=== PATIENT | female | born 1955 | race Caucasian/White ===

== ENCOUNTER 2016-09-10 16:17 | Inpatient (IN) ==
--- NOTE | 2016-09-10 16:37 | Emergency Department Note ---
Disposition Clinical Impression: Hyperkalemia CHF exacerbation Qualifiers: Congestive heart failure type: unspecified congestive heart failure type Qualified Code(s): I50.9 - Heart failure, unspecified Disposition: Admitted As Inpatient Condition: Fair Referrals: Lang Jarvis DO [Partnered Physician] - Forms: ED Satisfaction Letter Time of Disposition: 18:55 SOB HPI - General Chief Complaint: ED Shortness of Breath/Dyspnea Stated Complaint: SOB, BLE edema Time Seen by Provider: 09/10/16 16:22 Source: patient, EMS Limitations: no limitations Nursing Notes Reviewed: Yes Vital Signs Reviewed: Yes - History of Present Illness Patient is a 60 year old female with a history of CHF, kidney disease, COPD on home oxygen, DVT, atrial fibrillation and two MIs with a stent placed. She presented to the ED today via ambulance for increasing shortness of breath and bilateral leg swelling. She was recently admitted to the hospital 4 weeks ago for ANGÉLICA and had her Lasix dose decreased to 20mg. She was worked up and found to have a DVT in her left leg and is currently on Eliquis. She states she has not been able to walk to her bathroom without having to stop to catch her breath. Her oxygen requirement has increased from 2L to 4L. Pt Subjective Complaint: shortness of breath Onset (ago): week(s) Severity: moderate Consistency/Duration: gradually worsening Improves with: oxygen, upright position Worsens with: lying flat, exertion Known history of: congestive heart failure Associated symptoms: Reports: orthopnea. Denies: chest pain, fever, cough, nausea/vomiting Treatment prior to arrival: none Cough present: No - Related Data Home oxygen amount: 2 liters Home Medications Medication Instructions Recorded Confirmed Albuterol Neb [Proventil Neb] 2.5 mg IH Q6H PRN 02/07/16 08/05/16 Albuterol Sulfate [Proventil Hfa] 2 puff IH Q4H PRN 02/07/16 08/05/16 FLUoxetine HCl [Prozac] 10 mg PO QAM 02/07/16 08/05/16 Insulin Regular U-500 [HumuLIN R 0 unit .ROUTE PRN PRN 02/07/16 08/05/16 U-500] Metformin [Glucophage] 1,000 mg PO BIDWM 02/07/16 08/05/16 PredniSONE 10 mg PO TID 02/07/16 08/05/16 Pregabalin [Lyrica] 75 mg PO BID 02/07/16 08/05/16 Spironolactone [Aldactone] 25 mg PO QAM 02/07/16 08/05/16 B12/Levomefolate Calcium/B-6 1 tab PO QPM 02/29/16 08/05/16 [Foltx Tablet] Aspirin 81 mg PO QAM 03/27/16 08/05/16 Cholecalciferol (Vitamin D3) 5,000 unit PO QAM 03/27/16 08/05/16 [Dialyvite Vitamin D] Metoprolol XL (24 HR) Succ [Toprol 25 mg PO QAM 03/27/16 08/05/16 Xl] Omeprazole 40 mg PO QPM 03/27/16 08/05/16 Valsartan [Diovan] 320 mg PO QPM 03/27/16 08/05/16 Acetaminophen [Tylenol] 500 mg PO Q6HR PRN 06/12/16 08/05/16 Oxygen 2 l NS AD 06/12/16 08/05/16 Furosemide [Lasix] 40 mg PO HS 08/05/16 08/05/16 Furosemide [Lasix] 80 mg PO BID 08/05/16 08/05/16 Previous Rx's Medication Instructions Recorded Melatonin 10 mg PO HS #30 capsule 02/11/16 Budesonide/Formoterol 160/4.5 2 puff IH BIDR 30 Days 03/03/16 [Symbicort 160/4.5] Montelukast [Singulair] 10 mg PO HS 30 Days 03/03/16 Levothyroxine [Synthroid] 75 mcg PO DAILY@30 #30 tablet 03/31/16 Amiodarone [Cordarone] 200 mg PO DAILY #30 tablet 04/11/16 Apixaban [Eliquis] 5 mg PO BID tablet 08/07/16 Apixaban [Eliquis] 5 mg PO BID 28 Days 08/07/16 Apixaban [Eliquis] 10 mg PO BID tablet 08/07/16 Apixaban [Eliquis] 10 mg PO BID 6 Days 08/07/16 Furosemide [Lasix] 20 mg PO DAILY 7 Days 08/07/16 Allergies Allergy/AdvReac Type Severity Reaction Status Date / Time ciprofloxacin [From Cipro] Allergy Severe Anaphylaxis Verified 08/05/16 14:01 clarithromycin [From Biaxin] Allergy Severe Anaphylaxis Verified 08/05/16 14:01 clonidine Allergy Severe Anaphylaxis Verified 08/05/16 14:01 levofloxacin [From Levaquin] Allergy Severe Anaphylaxis Verified 08/05/16 14:01 Penicillins Allergy Severe Anaphylaxis Verified 08/05/16 14:01 Tetracycline Allergy Severe Anaphylaxis Verified 08/05/16 14:01 tiotropium Allergy Severe Anaphylaxis Verified 08/05/16 14:01 [From Spiriva with HandiHaler] trimethoprim Allergy Severe Anaphylaxis Verified 08/05/16 14:01 Warfarin Allergy Severe Anaphylaxis Verified 08/05/16 14:01 acarbose Allergy Anaphylaxis Verified 08/05/16 14:01 atorvastatin [From Lipitor] Allergy Anaphylaxis Verified 04/09/16 08:47 Cefaclor Allergy Anaphylaxis Verified 04/09/16 08:47 codeine Allergy Anaphylaxis Verified 04/09/16 08:47 fenofibrate [From Tricor] Allergy Anaphylaxis Verified 04/09/16 08:47 sulfamethoxazole Allergy Anaphylaxis Verified 04/09/16 08:47 rivaroxaban [From Xarelto] AdvReac Gastrointestinal Verified 09/10/16 16:35 Upset All systems ED: reviewed and negative except as stated. Past Medical History - Past Medical History Attestation: Yes The following information was validated with the patient. 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 - Social History Smoking Status: Former smoker Smokeless Tobacco Status: No Alcohol use: Reports: none Drug use: Reports: none Physical Exam - General Limitations: no limitations General appearance: alert, obese - Head Head exam: atraumatic, normocephalic, normal inspection - Eye Eye exam: Present: normal appearance, PERRL, EOMI - ENT ENT exam: normal exam, normal oropharynx, mucous membranes moist - Neck Neck exam: Present: normal inspection, full ROM, trachea midline - Chest Chest inspection: Present: normal inspection, symmetric chest wall rise - Respiratory Respiratory exam: Present: other (decreased breath sounds throughout) - Cardiovascular Cardiovascular exam: Present: normal rhythm, bradycardia - Abdominal Exam Abdominal exam: Present: soft, Non-Tender. Absent: tenderness, distention, guarding, rebound, rigidity - Extremities Exam Extremities exam: Present: normal inspection, full ROM, tenderness, pedal edema - Back Exam Back exam: Present: normal inspection, full ROM. Absent: tenderness - Neurological Exam Neurological exam: Present: alert, oriented X3 - Psychiatric Psychiatric exam: Present: normal affect, normal mood - Skin Skin exam: Present: warm, dry, intact, normal color Course Course Narrative: Patient seen and examined. Worsening shortness of breath. Recently inpatient for worsening renal function. Her Lasix dose was decreased down to 20 mg daily. Has been retaining fluid ever since going home. Cardiopulmonary workup initiated. - Reevaluation(s) Reevaluation #1: Patient has an elevated BNP in the 300s compared to her previous one. Concern for possible CHF exacerbation considering her symptoms. Her potassium is also elevated at 6.9. We ordered 10 units of insulin, DuoNeb treatment, Kayexalate. However when giving the insulin, patient had already given herself 24 units of insulin. I spoke with hospitalist Dr. Yap who has accepted. Would like UA and another 15mg Kayexalate. Time: 18:54 Vital Signs O2 Sat by Pulse Oximetry 98 09/10/16 16:19 Temperature 97.4 F L 09/10/16 16:29 Pulse Rate 50 09/10/16 18:31 Respiratory Rate 20 09/10/16 18:31 Blood Pressure 138/54 09/10/16 18:31 O2 Sat by Pulse Oximetry 99 09/10/16 18:31 Oxygen Delivery Oxygen Delivery Nasal Cannula Shortness of Breath/Dyspnea - Medical Records Medical records reviewed: Yes I reviewed the patient's medical records. - Lab Data Lab results reviewed: Yes I reviewed the patient's lab results. Result diagrams: 09/10/16 16:58 09/10/16 16:58 Lab Results 09/10/16 09/10/16 09/10/16 Range/Units 16:58 16:58 16:58 WBC 9.5 (4.3-11.1) K/mcL RBC 3.25 L (3.82-4.97) M/mcL Hgb 9.6 L (11.5-15.4) g/dL Hct 30.8 L (35.3-44.9) % MCV 94.8 (83.0-100.0) fL MCH 29.5 (28.0-33.3) pg MCHC 31.2 L (31.6-35.5) g/dL RDW 16.3 H (11.5-14.5) % Plt Count 246 (140-400) K/mcL MPV 10.2 (9.4-12.4) fL Immature Gran % 1.4 (0-4) % Seg Neutrophils % 84.0 % Lymphocytes % 9.5 % Monocytes % 4.7 % Eosinophils % 0.2 % Basophils % 0.2 % Neutrophils # 8.0 (1.6-8.9) K/mcL Lymphocytes # 0.9 (0.6-4.6) K/mcL Monocytes # 0.5 (0.0-1.3) K/mcL Eosinophils # 0.0 (0.0-0.6) K/mcL Basophils # 0.0 (0.0-0.2) K/mcL ABG pH (7.32-7.45) pH Units ABG pCO2 (35-45) mmHg ABG pO2 (85-104) mmHg ABG HCO3 (21-27) mEQ/L ABG Total CO2 (20-26) mEq/L ABG O2 Saturation (95-98) % ABG Base Excess (-2.0 to 3.0) mEq/L Liter Flow L/MIN Blood Gas Modality Inspired O2 % Sodium 134 L (136-145) mEq/L Potassium 6.9 H* (3.5-4.5) mEq/L Chloride 106 (98-109) mEq/L Carbon Dioxide 24 (19-29) mEq/L BUN 52 H (7-20) mg/dL Creatinine 1.43 H (0.57-1.11) mg/dL Est GFR ( Amer) 45 L (> 60) Est GFR (Non-Af Amer) 37 L (> 60) BUN/Creatinine Ratio 36 H (6-26) Glucose 395 H (70-99) mg/dL Calculated Osmolality 309 H (280-300) Calcium 10.0 (8.6-10.8) mg/dL Troponin I 0.01 (0-0.03) ng/mL B-Natriuretic Peptide (0-100) pg/mL 09/10/16 09/10/16 Range/Units 16:58 18:16 WBC (4.3-11.1) K/mcL RBC (3.82-4.97) M/mcL Hgb (11.5-15.4) g/dL Hct (35.3-44.9) % MCV (83.0-100.0) fL MCH (28.0-33.3) pg MCHC (31.6-35.5) g/dL RDW (11.5-14.5) % Plt Count (140-400) K/mcL MPV (9.4-12.4) fL Immature Gran % (0-4) % Seg Neutrophils % % Lymphocytes % % Monocytes % % Eosinophils % % Basophils % % Neutrophils # (1.6-8.9) K/mcL Lymphocytes # (0.6-4.6) K/mcL Monocytes # (0.0-1.3) K/mcL Eosinophils # (0.0-0.6) K/mcL Basophils # (0.0-0.2) K/mcL ABG pH 7.31 L (7.32-7.45) pH Units ABG pCO2 48 H (35-45) mmHg ABG pO2 216 H (85-104) mmHg ABG HCO3 24.2 (21-27) mEQ/L ABG Total CO2 25.7 (20-26) mEq/L ABG O2 Saturation 100 H (95-98) % ABG Base Excess -2.2 L (-2.0 to 3.0) mEq/L Liter Flow 2 L/MIN Blood Gas Modality NC Inspired O2 28 % Sodium (136-145) mEq/L Potassium (3.5-4.5) mEq/L Chloride (98-109) mEq/L Carbon Dioxide (19-29) mEq/L BUN (7-20) mg/dL Creatinine (0.57-1.11) mg/dL Est GFR ( Amer) (> 60) Est GFR (Non-Af Amer) (> 60) BUN/Creatinine Ratio (6-26) Glucose (70-99) mg/dL Calculated Osmolality (280-300) Calcium (8.6-10.8) mg/dL Troponin I (0-0.03) ng/mL B-Natriuretic Peptide 323 H (0-100) pg/mL - Radiology Data Radiology results reviewed: Yes I reviewed the patient's radiology results. - EKG Data EKG attestation: Yes I reviewed and interpreted this EKG. EKG results narrative: EKG done at 1636 shows sinus bradycardia with a rate of [address] elevation or depression. Moderate intraventricular conduction delay.
[2016-09-10 17:21] LABS: Basophils % 0.2 %; Eosinophils % 0.2 %; Hematocrit 30.8 % (35.3-44.9); Hemoglobin 9.6 g/dL (11.5-15.4); Immature Granulocytes % 1.4 % (0-4); Lymphocytes # 0.9 K/mcL (0.6-4.6); Lymphocytes % 9.5 %; Mean Corpuscular HGB Conc 31.2 g/dL (31.6-35.5); Mean Corpuscular Hemoglobin 29.5 pg (28.0-33.3); Mean Corpuscular Volume 94.8 fL (83.0-100.0); Mean Platelet Volume 10.2 fL (9.4-12.4); Monocytes # 0.5 K/mcL (0.0-1.3); Monocytes % 4.7 %; Platelet Count 246 K/mcL (140-400); Potassium 6.9 mEq/L (3.5-4.5); Red Blood Count 3.25 M/mcL (3.82-4.97); Red Cell Distribution Width 16.3 % (11.5-14.5)
[2016-09-10] MEDS ORDERED: Insulin Regular, Human 100 UNIT/ML SQ ONE (17:24)
[2016-09-10] MEDS ORDERED: Ipratropium/Albuterol Neb 3 ML IH ONE (17:26)
--- NOTE | 2016-09-10 18:11 | Emergency Department Note ---
Disposition Clinical Impression: CHF exacerbation, Hyperkalemia Disposition: Admitted As Inpatient Condition: Fair General Adult HPI - General Chief complaint: ED Shortness of Breath/Dyspnea Stated complaint: SOB, BLE edema Time Seen by Provider: 09/10/16 16:22 Source: patient, EMS Limitations: no limitations - History of Present Illness Pain Scale: 8 - Related Data Home Medications Medication Instructions Recorded Confirmed Albuterol Neb [Proventil Neb] 2.5 mg IH Q6H PRN 02/07/16 09/10/16 Albuterol Sulfate [Proventil Hfa] 2 puff IH Q4H PRN 02/07/16 09/10/16 FLUoxetine HCl [Prozac] 10 mg PO QAM 02/07/16 09/10/16 Insulin Regular U-500 [HumuLIN R 0 unit .ROUTE PRN PRN 02/07/16 09/10/16 U-500] Pregabalin [Lyrica] 75 mg PO BID 02/07/16 09/10/16 Spironolactone [Aldactone] 12.5 mg PO QAM 02/07/16 09/10/16 B12/Levomefolate Calcium/B-6 1 tab PO QPM 02/29/16 09/10/16 [Foltx Tablet] Aspirin 81 mg PO QAM 03/27/16 09/10/16 Cholecalciferol (Vitamin D3) 5,000 unit PO QAM 03/27/16 09/10/16 [Dialyvite Vitamin D] Metoprolol XL (24 HR) Succ [Toprol 25 mg PO QAM 03/27/16 09/10/16 Xl] Omeprazole 40 mg PO QPM 03/27/16 09/10/16 Valsartan [Diovan] 320 mg PO QPM 03/27/16 09/10/16 Acetaminophen [Tylenol] 500 mg PO Q6HR PRN 06/12/16 09/10/16 Oxygen 2 l NS AD 06/12/16 09/10/16 Febuxostat [Uloric] 80 mg PO DAILY 09/10/16 09/10/16 Levothyroxine [Synthroid] 75 mcg PO DAILY 09/10/16 09/10/16 Previous Rx's Medication Instructions Recorded Melatonin 10 mg PO HS #30 capsule 02/11/16 Budesonide/Formoterol 160/4.5 2 puff IH BIDR 30 Days 03/03/16 [Symbicort 160/4.5] Montelukast [Singulair] 10 mg PO HS 30 Days 03/03/16 Amiodarone [Cordarone] 200 mg PO DAILY #30 tablet 04/11/16 Apixaban [Eliquis] 5 mg PO BID 28 Days 08/07/16 Furosemide [Lasix] 20 mg PO DAILY 30 Days 09/14/16 PredniSONE 10 mg PO DAILY #12 tablet 09/14/16 Sulfamethoxazole/Trimeth DS 1 each PO DAILY #12 tablet 09/14/16 [Bactrim Ds] Allergies Allergy/AdvReac Type Severity Reaction Status Date / Time ciprofloxacin [From Cipro] Allergy Severe Anaphylaxis Verified 08/05/16 14:01 clarithromycin [From Biaxin] Allergy Severe Hives Verified 09/10/16 20:30 clonidine Allergy Severe Anaphylaxis Verified 08/05/16 14:01 levofloxacin [From Levaquin] Allergy Severe Anaphylaxis Verified 08/05/16 14:01 Penicillins Allergy Severe Anaphylaxis Verified 08/05/16 14:01 Tetracycline Allergy Severe Itching Verified 09/10/16 20:30 tiotropium Allergy Severe Blurry Verified 09/10/16 20:30 [From Spiriva with Vision HandiHaler] Warfarin Allergy Severe Difficulty Verified 09/10/16 20:30 Breathing acarbose Allergy Blurry Verified 09/10/16 20:30 Vision Cefaclor Allergy Anaphylaxis Verified 04/09/16 08:47 codeine Allergy Rash Verified 09/10/16 20:30 Hydralazine Allergy Hives Verified 09/10/16 20:30 atorvastatin [From Lipitor] AdvReac Muscle Pain Verified 09/10/16 20:30 fenofibrate [From Tricor] AdvReac Muscle Pain Verified 09/10/16 20:30 rivaroxaban [From Xarelto] AdvReac Gastrointestinal Verified 09/10/16 16:35 Upset Past Medical History - Past Medical History Medical history: Reports: atrial fibrillation, CHF, COPD, coronary artery disease, diabetes, GI bleed, hypertension, renal disease, thyroid disease Surgical history: Reports: angioplasty/stent, other Psychiatric history: Reports: anxiety, depression CANOPY INSPECTOR history: 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 Pacheco. Patient presents with a complaint of shortness of breath. She was recently taken off her diuretics. Since then she has gotten more and more short of breath and complains of swelling to her legs. On examination she looks dyspneic. Workup shows an elevation of BNP above baseline and hyperkalemia. We do not see any acute EKG changes. I think this patient's dyspnea is limiting and therefore she is admitted to the hospital to resolve the issue. Time: 18:10 Vital Signs O2 Sat by Pulse Oximetry 98 09/10/16 16:19 Temperature 98.2 F 09/14/16 06:53 Pulse Rate 64 09/14/16 11:39 Respiratory Rate 20 09/14/16 12:03 Blood Pressure 132/72 09/14/16 11:44 O2 Sat by Pulse Oximetry 96 09/14/16 12:03 Oxygen Delivery Oxygen Delivery Nasal Cannula Medical Decision Making - Lab Data Result diagrams: 09/14/16 03:53 09/14/16 03:53 Lab Results 09/10/16 09/10/16 09/10/16 Range/Units 16:58 16:58 16:58 WBC 9.5 (4.3-11.1) K/mcL RBC 3.25 L (3.82-4.97) M/mcL Hgb 9.6 L (11.5-15.4) g/dL Hct 30.8 L (35.3-44.9) % MCV 94.8 (83.0-100.0) fL MCH 29.5 (28.0-33.3) pg MCHC 31.2 L (31.6-35.5) g/dL RDW 16.3 H (11.5-14.5) % Plt Count 246 (140-400) K/mcL MPV 10.2 (9.4-12.4) fL Immature Gran % 1.4 (0-4) % Seg Neutrophils % 84.0 % Lymphocytes % 9.5 % Monocytes % 4.7 % Eosinophils % 0.2 % Basophils % 0.2 % Neutrophils # 8.0 (1.6-8.9) K/mcL Lymphocytes # 0.9 (0.6-4.6) K/mcL Monocytes # 0.5 (0.0-1.3) K/mcL Eosinophils # 0.0 (0.0-0.6) K/mcL Basophils # 0.0 (0.0-0.2) K/mcL ABG pH (7.32-7.45) pH Units ABG pCO2 (35-45) mmHg ABG pO2 (85-104) mmHg ABG HCO3 (21-27) mEQ/L ABG Total CO2 (20-26) mEq/L ABG O2 Saturation (95-98) % ABG Base Excess (-2.0 to 3.0) mEq/L Liter Flow L/MIN Blood Gas Modality Inspired O2 % Sodium 134 L (136-145) mEq/L Potassium 6.9 H* (3.5-4.5) mEq/L Chloride 106 (98-109) mEq/L Carbon Dioxide 24 (19-29) mEq/L BUN 52 H (7-20) mg/dL Creatinine 1.43 H (0.57-1.11) mg/dL Est GFR ( Amer) 45 L (> 60) Est GFR (Non-Af Amer) 37 L (> 60) BUN/Creatinine Ratio 36 H (6-26) Glucose 395 H (70-99) mg/dL Calculated Osmolality 309 H (280-300) Calcium 10.0 (8.6-10.8) mg/dL Troponin I 0.01 (0-0.03) ng/mL B-Natriuretic Peptide (0-100) pg/mL 09/10/16 09/10/16 Range/Units 16:58 18:16 WBC (4.3-11.1) K/mcL RBC (3.82-4.97) M/mcL Hgb (11.5-15.4) g/dL Hct (35.3-44.9) % MCV (83.0-100.0) fL MCH (28.0-33.3) pg MCHC (31.6-35.5) g/dL RDW (11.5-14.5) % Plt Count (140-400) K/mcL MPV (9.4-12.4) fL Immature Gran % (0-4) % Seg Neutrophils % % Lymphocytes % % Monocytes % % Eosinophils % % Basophils % % Neutrophils # (1.6-8.9) K/mcL Lymphocytes # (0.6-4.6) K/mcL Monocytes # (0.0-1.3) K/mcL Eosinophils # (0.0-0.6) K/mcL Basophils # (0.0-0.2) K/mcL ABG pH 7.31 L (7.32-7.45) pH Units ABG pCO2 48 H (35-45) mmHg ABG pO2 216 H (85-104) mmHg ABG HCO3 24.2 (21-27) mEQ/L ABG Total CO2 25.7 (20-26) mEq/L ABG O2 Saturation 100 H (95-98) % ABG Base Excess -2.2 L (-2.0 to 3.0) mEq/L Liter Flow 2 L/MIN Blood Gas Modality NC Inspired O2 28 % Sodium (136-145) mEq/L Potassium (3.5-4.5) mEq/L Chloride (98-109) mEq/L Carbon Dioxide (19-29) mEq/L BUN (7-20) mg/dL Creatinine (0.57-1.11) mg/dL Est GFR ( Amer) (> 60) Est GFR (Non-Af Amer) (> 60) BUN/Creatinine Ratio (6-26) Glucose (70-99) mg/dL Calculated Osmolality (280-300) Calcium (8.6-10.8) mg/dL Troponin I (0-0.03) ng/mL B-Natriuretic Peptide 323 H (0-100) pg/mL Attestation Statement - Attestation Attestation: I, Dr. Crawley, examined this patient [id number] and my medical decision- making was reviewed with Dr. Pacheco, Resident Physician. I agree with the documented findings, disposition and treatment plan as described except to the extent set forth below. Please see my progress notes for details.
[2016-09-10 18:24] LABS: ABG Base Excess -2.2 mEq/L (-2.0 to 3.0); ABG HCO3 24.2 mEQ/L (21-27); ABG Oxygen Saturation 100 % (95-98); ABG PCO2 48 mmHg (35-45); ABG PH 7.31 pH Units (7.32-7.45); ABG PO2 216 mmHg (85-104); ABG TCO2 25.7 mEq/L (20-26)
[2016-09-10 18:26] LABS: Blood Gas FiO2 28 %; Blood Gas Liter Flow 2 L/MIN
[2016-09-10] MEDS ORDERED: Furosemide 20 MG/2 ML VIAL IVP ONE (18:44)
[2016-09-10] MEDS ORDERED: *HR* Dextrose 50 % in Water (Syg) 50 ML SYRINGE IVP PRN (20:50)
[2016-09-10] MEDS ORDERED: Dextrose Gel 15 GM PO PRN ×2 (20:50)
[2016-09-10] MEDS ORDERED: D5% in Water 1,000 ML IV PRN (20:50)
[2016-09-10] MEDS ORDERED: Naloxone 0.4 MG/ML INJ IVP PRN (20:54)
[2016-09-10] MEDS ORDERED: Insulin LISPRO 300 UNITS/3 ML VIAL SQ SCH (21:00)
[2016-09-10] MEDS ORDERED: NON-FORMULARY MEDICATION 1 EACH EACH (Oxygen [Oxygen] 2 L) NS SCH (21:00)
[2016-09-10] MEDS ORDERED: Insulin DETEMIR 100 UNIT/ML X5UNITS SQ SCH (21:00)
[2016-09-10 21:12] LABS: Bilirubin,Urine Negative (Negative); Blood,Urine Trace (Negative); Clarity,Urine Clear (Clear); Color,Urine Yellow (Yellow); Glucose,Urine (UA) 500 mg/dL (Normal); Ketones,Urine Negative (Negative); Leukocyte Esterase,Urine Small (Negative); Nitrite,Urine Negative (Negative); Protein,Urine Trace mg/dL (Neg-Trace); Specific Gravity,Urine 1.011 (1.010-1.025); Urobilinogen,Urine Normal (Normal)
[2016-09-10 21:14] LABS: Bacteria,Urine Many per hpf (None-Few); Hyaline Casts,Urine None Seen per lpf (None-Few); RBC,Urine 0-3 per hpf (0-3); Squamous Epithelial Cell,Urine Moderate per lpf (None-Few); WBC,Urine 15-30 per hpf (0-3)
--- NOTE | 2016-09-10 21:21 | Internal Med History&Physical ---
Date of Encounter: 09/10/16 Time of Encounter: 20:30 Assessment and Plan (1) CHF exacerbation Current visit: Yes Status: Acute Acute CHF decompensation 1 dose Lasix 40 mg IV given with significant urine output Continue low-dose Lasix BiPAP support overnight Continue to monitor O2 saturation O2 supplementation as needed Monitor daily weights Monitor daily intake and output Maintain fluid restricted diet A 2-D echocardiogram from 08/06/2016 consistent with LVEF of 60-65% Qualifiers: Congestive heart failure type: unspecified congestive heart failure type Qualified Code(s): I50.9 - Heart failure, unspecified (2) Hyperkalemia Current visit: Yes Status: Acute No EKG changes noted Pt received Kayxelate, insulin, and Albuterol follow up repeat K levels closely monitor electrolytes (3) Cellulitis Current visit: Yes Status: Chronic Patient currently undergoing treatment with doxycycline for lower extremity cellulitis Currently on doxycycline 100 mg by mouth twice a day (Day5/10) Continue doxycycline It appears to be that patient may have chronic venous stasis contributing to her bilateral lower extremity edema Qualifiers: Site of cellulitis: extremity Site of cellulitis of extremity: lower extremity Laterality: unspecified laterality Qualified Code(s): L03.119 - Cellulitis of unspecified part of limb (4) Chronic kidney disease Current visit: Yes Status: Acute Kidney function appears to be at baseline We will continue to monitor Consider nephrology evaluation if kidney function deteriorates Given worsening heart failure, patient may benefit from low-dose diuretic therapy Qualifiers: Chronic kidney disease stage: stage 3 (moderate) Qualified Code(s): N18.3 - Chronic kidney disease, stage 3 (moderate) (5) Hyperglycemia due to type 2 diabetes mellitus Current visit: Yes Status: Acute Hyperglycemia secondary to uncontrolled diabetes Patient currently on insulin pump at home We will hold insulin pump and started on Lantus and Humalog regimen Start Levemir 20 mg daily at bedtime Start high-dose sliding scale correctional insulin algorithm Closely monitor fingerstick blood glucose Follow-up repeat hemoglobin A1c in the morning Last A1c from May 2016 was reported to be 8.9 Qualifiers: Diabetes mellitus nursing home insulin use: with continuous churn buttermaker use Qualified Code( s): E11.65 - Type 2 diabetes mellitus with hyperglycemia; Z79.4 - intermediate ( current) use of insulin (6) DVT (deep venous thrombosis) Current visit: Yes Status: Chronic Continue Prilosec was twice a day Qualifiers: DVT location: lower extremity Affected thrombotic vein of extremity: unspecified vein of extremity Laterality: left Chronicity: chronic Qualified Code(s): I82.502 - Chronic embolism and thrombosis of unspecified deep veins of left lower extremity (7) COPD (chronic obstructive pulmonary disease) Current visit: Yes Status: Acute Not in acute exacerbation Continue home medications Bronchodilators as needed O2 supplementation Qualifiers: COPD type: unspecified COPD Qualified Code(s): J44.9 - Chronic obstructive pulmonary disease, unspecified (8) Anemia of chronic disease Current visit: Yes Status: Chronic H&H low but acceptable No Active bleeding noted at this time Continue to monitor H&H closely Transfuse as needed (9) Hypothyroidism Current visit: Yes Status: Acute Continue levothyroxine Qualifiers: Hypothyroidism type: unspecified Qualified Code(s): E03.9 - Hypothyroidism , unspecified (10) A-fib Current visit: No Status: Chronic Rate controlled Anticoagulated with Eliquis Continue home medications Qualifiers: Atrial fibrillation type: paroxysmal Qualified Code(s): I48.0 - Paroxysmal atrial fibrillation (11) OLIVER (obstructive sleep apnea) Current visit: No Status: Chronic Continue BiPAP support overnight (12) Hypertension Current visit: No Status: Chronic Continue home antihypertensive medications Qualifiers: Hypertension type: essential hypertension Qualified Code(s): I10 - Essential (primary) hypertension (13) Morbid obesity with BMI of 50.0-59.9, adult Current visit: No Status: Chronic (14) DVT prophylaxis Current visit: Yes Status: Acute Anticoagulated with Eliquis Internal Medicine - H&P: HPI Chief complaint: shortness of breath Admitted From: Home Plans for Post Hospital Care: Home History of present illness: Ms. Feliciano is a 60 year old female with extensive medical history who presented to the ER for worsening shortness of breath. Upon arrival to the ER patient was noted to be in severe respiratory distress and was given 1 dose of Lasix 40 mg IV, which improved her respiratory symptoms. She is noted to be on home oxygen and uses it continuously. Patient reports of recently being admitted to the hospital and was found to have acute lower extremity DVT at that time. She was also noted to have worsening kidney function due to which her diuretic therapy was placed on hold. She states that yesterday she got a call from her primary french drawer Dr. Cardoso, who asked her to go to the ER due to her kidney function. She is unclear if her kidney function had worsened or what was the reasoning Dr. Cardoso wanted her to be hospitalized. At this time patient is resting comfortably in bed, saturating well on nasal cannula, able to communicate, and denies any shortness of breath at rest. She reports of currently being treated with doxycycline for her lower extremity cellulitis, and states today is day 5 out of 10 of her doxycycline regimen. She also uses insulin pump for her diabetes. Past medical history: CHF, COPD on home oxygen, CAD, diabetes on insulin pump, hypertension, CK D stage III, thyroid disease, left lower extremity DVT on anticoagulation, atrial fibrillation, morbid obesity, OLIVER Social Hx: Former smoker-quit in 1991 Past Med Surg Social Fam HX - Past Medical History Medical history: atrial fibrillation, CHF, COPD, coronary artery disease, diabetes, GI bleed, hypertension, renal disease, thyroid disease Psychiatric history: anxiety, depression - Past Surgical History Surgical History: angioplasty/stent, other - Social History Smoking Status: Former smoker Smokeless Tobacco Status: No Alcohol use: none Drug use: none - Family History Mother Family Member Ethnicity: Non- Living Status: Still Living Hx Family Cardiac Disorders: Yes Hx Family Neurologic Disorders: Yes (Dementia) Brother Living Status: Hx Family Cancer: Yes (colon cancer) Son Living Status: Still Living Hx Family GI Disorders: Yes (high grade dysplasia polyps) Father Adopted: No Family Member Ethnicity: Non- Living Status: Hx Family Cardiac Disorders: Yes Hx Family Respiratory Disorders: Yes (COPD) Hx Family Cancer: No Hx Family GI Disorders: No Hx Family Endocrine Disorder: No Hx Family Neuromuscular Disorders: No Hx Family Neurologic Disorders: No Hx Family HEENT Disorders: No Hx Family Autoimmune Disorders: No Internal Medicine - H&P: Meds Albuterol Neb [Proventil Neb] 2.5 mg IH Q6H PRN 02/07/16 [History] Albuterol Sulfate [Proventil Hfa] 2 puff IH Q4H PRN 02/07/16 [History] FLUoxetine HCl [Prozac] 10 mg PO QAM 02/07/16 [History] Insulin Regular U-500 [HumuLIN R U-500] 0 unit .ROUTE PRN PRN 02/07/16 [History ] Metformin [Glucophage] 1,000 mg PO BIDWM 02/07/16 [History] PredniSONE 10 mg PO TID 02/07/16 [History] Pregabalin [Lyrica] 75 mg PO BID 02/07/16 [History] Spironolactone [Aldactone] 12.5 mg PO QAM 02/07/16 [History] Melatonin 10 mg PO HS #30 capsule 02/11/16 [Rx] B12/Levomefolate Calcium/B-6 [Foltx Tablet] 1 tab PO QPM 02/29/16 [History] Budesonide/Formoterol 160/4.5 [Symbicort 160/4.5] 2 puff IH BIDR 30 Days [Rx] Montelukast [Singulair] 10 mg PO HS 30 Days 03/03/16 [Rx] Aspirin 81 mg PO QAM 03/27/16 [History] Cholecalciferol (Vitamin D3) [Dialyvite Vitamin D] 5,000 unit PO QAM 03/27/16 [ History] Metoprolol XL (24 HR) Succ [Toprol Xl] 25 mg PO QAM 03/27/16 [History] Omeprazole 40 mg PO QPM 03/27/16 [History] Valsartan [Diovan] 320 mg PO QPM 03/27/16 [History] Amiodarone [Cordarone] 200 mg PO DAILY #30 tablet 04/11/16 [Rx] Acetaminophen [Tylenol] 500 mg PO Q6HR PRN 06/12/16 [History] Oxygen 2 l NS AD 06/12/16 [History] Apixaban [Eliquis] 5 mg PO BID 28 Days 08/07/16 [Rx] Furosemide [Lasix] 20 mg PO DAILY 7 Days 08/07/16 [Rx] Febuxostat [Uloric] PO DAILY 09/10/16 [History] Levothyroxine [Synthroid] 75 mcg PO DAILY 09/10/16 [History] Allergies ciprofloxacin [From Cipro] Allergy (Severe, Verified 08/05/16 14:01) Anaphylaxis clarithromycin [From Biaxin] Allergy (Severe, Verified 09/10/16 20:30) Hives clonidine Allergy (Severe, Verified 08/05/16 14:01) Anaphylaxis levofloxacin [From Levaquin] Allergy (Severe, Verified 08/05/16 14:01) Anaphylaxis Penicillins Allergy (Severe, Verified 08/05/16 14:01) Anaphylaxis Tetracycline Allergy (Severe, Verified 09/10/16 20:30) Itching tiotropium [From Spiriva with HandiHaler] Allergy (Severe, Verified 09/10/16 20: 30) Blurry Vision trimethoprim Allergy (Severe, Verified 08/05/16 14:01) Anaphylaxis Warfarin Allergy (Severe, Verified 09/10/16 20:30) Difficulty Breathing acarbose Allergy (Verified 09/10/16 20:30) Blurry Vision Cefaclor Allergy (Verified 04/09/16 08:47) Anaphylaxis codeine Allergy (Verified 09/10/16 20:30) Rash Hydralazine Allergy (Verified 09/10/16 20:30) Hives atorvastatin [From Lipitor] Adverse Reaction (Verified 09/10/16 20:30) Muscle Pain fenofibrate [From Tricor] Adverse Reaction (Verified 09/10/16 20:30) Muscle Pain rivaroxaban [From Xarelto] Adverse Reaction (Verified 09/10/16 16:35) Gastrointestinal Upset sulfamethoxazole Adverse Reaction (Verified 09/10/16 20:30) Gastrointestinal Upset All Systems PM: A 10-system review of systems was performed and is negative for pertinent findings except as documented above in the HPI. - Constitutional Constitutional: as per HPI, weight gain - Constitutional Vitals: Temp Pulse Resp BP Pulse Ox 97.5 F L 53 18 162/42 99 09/10/16 20:09 09/10/16 20:09 09/10/16 20:44 09/10/16 19:09 09/10/16 20:44 General appearance: Present: cooperative, A&O X 3, morbidly obese, no acute distress, answers questions appropriately - Head Head exam: Present: atraumatic, normocephalic - Eye Eye exam: Present: normal appearance, conjuntiva pink, sclera anicteric - Respiratory Respiratory exam: Absent: respiratory distress, wheezes (bibasilar crackles) - Cardiovascular Cardiovascular exam: Present: RRR, +S1, +S2 - GI/Abdominal GI/Abdominal exam: Present: distended (morbidly obese), normal bowel sounds, soft. Absent: guarding, tenderness, no peritoneal signs - Extremities Exam Extremities exam: Present: pedal edema (2+pitting edema bilaterally, RLE erythema extending to mid magana, Distal LLE chronic ulcer), warm, radial pulses palpable and symetrical. Absent: calf tenderness - Neurological Exam Neurological exam: Present: alert, oriented X3, no focal deficits - Psychiatric Psychiatric exam: Present: normal affect, normal mood Internal Med - H&P Results - Labs CBC & Chem 7: 09/10/16 16:58 09/10/16 16:58
[2016-09-10 21:36] LABS: Calcium 10.3 mg/dL (8.6-10.8)
[2016-09-10] MEDS: Budesonide/Formoterol 160/4.5 MDI IH SCH (22:00)
[2016-09-10] MEDS: Albuterol 2.5 MG/3 ML NEBULIZER IH SCH (22:00)
[2016-09-10] MEDS: Pregabalin 75 MG CAPSULE PO SCH (22:01)
[2016-09-10] MEDS: predniSONE 10 MG TABLET PO SCH (22:01)
[2016-09-10] MEDS: APIXABAN 5 MG TABLET PO SCH (22:02)
[2016-09-10] MEDS: Doxycycline 100 MG CAPSULE PO SCH (22:05)
[2016-09-10] MEDS: Melatonin 3 MG TABLET PO SCH (23:24)
[2016-09-11] MEDS: Albuterol 2.5 MG/3 ML NEBULIZER IH SCH ×2 (04:15→12:43)
[2016-09-11 04:58] LABS: Basophils % 0.2 %; Eosinophils # 0.1 K/mcL (0.0-0.6); Hematocrit 31.6 % (35.3-44.9); Hemoglobin 9.9 g/dL (11.5-15.4); Immature Granulocytes % 1.2 % (0-4); Lymphocytes # 1.4 K/mcL (0.6-4.6); Lymphocytes % 14.1 %; Mean Corpuscular HGB Conc 31.3 g/dL (31.6-35.5); Mean Corpuscular Hemoglobin 29.6 pg (28.0-33.3); Mean Corpuscular Volume 94.6 fL (83.0-100.0); Mean Platelet Volume 10.4 fL (9.4-12.4); Monocytes # 0.5 K/mcL (0.0-1.3); Monocytes % 4.9 %; Neutrophils # 8.1 K/mcL (1.6-8.9); Platelet Count 256 K/mcL (140-400); Red Blood Count 3.34 M/mcL (3.82-4.97); Red Cell Distribution Width 16.5 % (11.5-14.5); Segmented Neutrophils % 78.6 %
[2016-09-11 05:08] LABS: Hemoglobin A1C 7.6 %
[2016-09-11 05:10] LABS: Calcium 10.1 mg/dL (8.6-10.8); Magnesium 1.6 mg/dL (1.6-2.6); Phosphorous 3.9 mg/dL (2.3-4.7)
[2016-09-11 05:17] LABS: Potassium 6.8 mEq/L (3.5-4.5)
[2016-09-11] MEDS: Metoprolol XL (24 HR) Succ 50 MG TAB.ER.24H PO SCH (08:13)
[2016-09-11] MEDS: *HR* Amiodarone 200 MG TABLET PO SCH (08:13)
[2016-09-11] MEDS: Cholecalciferol (D-3) 1,000 UNIT TABLET PO SCH (08:13)
[2016-09-11] MEDS: FLUoxetine HCl 10 MG CAPSULE PO SCH (08:13)
[2016-09-11] MEDS: Aspirin 81 MG TAB.CHEW PO SCH (08:14)
[2016-09-11] MEDS: Pregabalin 75 MG CAPSULE PO SCH ×2 (08:14→20:32)
[2016-09-11] MEDS: APIXABAN 5 MG TABLET PO SCH ×2 (08:14→20:32)
[2016-09-11] MEDS: Doxycycline 100 MG CAPSULE PO SCH (08:14)
[2016-09-11] MEDS: predniSONE 10 MG TABLET PO SCH ×3 (08:14→20:32)
[2016-09-11] MEDS: (Febuxostat [Uloric] 80 MG) PO SCH (08:14)
[2016-09-11] MEDS ORDERED: Furosemide 20 MG TABLET PO SCH (09:00)
[2016-09-11] MEDS ORDERED: Spironolactone 25 MG TABLET PO SCH (09:00)
[2016-09-11] MEDS: Insulin LISPRO 300 UNITS/3 ML VIAL SQ SCH ×2 (09:18→11:59)
[2016-09-11] MEDS ORDERED: Insulin Regular, Human 100 UNIT/ML IV ONE (11:09)
[2016-09-11] MEDS ORDERED: *HR* Dextrose 50 % in Water (Syg) 50 ML SYRINGE IVP ONE (11:22)
[2016-09-11] MEDS ORDERED: Vancomycin 1,000 MG in D5% in Water 250 ML IVPB ONE (11:23)
[2016-09-11] MEDS ORDERED: Insulin Human Regular 8 UNIT in 0.9 % Sodium Chloride 10 ML IV ONE (11:28)
[2016-09-11] MEDS ORDERED: cloNIDine HCl 0.1 MG TABLET PO ONE (11:30)
--- NOTE | 2016-09-11 11:34 | Internal Med Progress Note ---
Date of Encounter: 09/11/16 Time of Encounter: 06:00 - Assessment and plan (1) Hyperkalemia Current Visit: Yes Status: Acute Assessment and plan: deu to ROSALIO aldactone and worsening of renal functIon pt will be on low potassium diet check EKG, hold rosalio and ARB (2) ANGÉLICA (acute kidney injury) Current Visit: No Status: Acute Assessment and plan: POSSIBLE PRE RENAL GENTLE HYDRATION (3) Acute kidney injury superimposed on chronic kidney disease Current Visit: No Status: Acute (4) CHF (congestive heart failure) Current Visit: Yes Status: Chronic Assessment and plan: WITH DIASTOLIC DISFUNCTION COMPENSATED DUE TO HYPERKALEMIA HOLD ROSALIO Qualifiers: Congestive heart failure type: diastolic Congestive heart failure chronicity: unspecified congestive heart failure chronicity Qualified Code(s) : I50.30 - Unspecified diastolic (congestive) heart failure (5) CHF exacerbation Current Visit: Yes Status: Acute Qualifiers: Congestive heart failure type: unspecified congestive heart failure type Qualified Code(s): I50.9 - Heart failure, unspecified (6) CHF (congestive heart failure) Current Visit: No Status: Chronic Qualifiers: Congestive heart failure type: diastolic Congestive heart failure chronicity: unspecified congestive heart failure chronicity Qualified Code(s) : I50.30 - Unspecified diastolic (congestive) heart failure - Time Spent With Patient 25 - 35 minutes - Subjective Interval history: Pt c/o generalized weakness and pain in right leg - Constitutional Vitals: Temp Pulse Resp BP Pulse Ox 97.4 F L 51 20 181/60 100 09/11/16 07:58 09/11/16 07:58 09/11/16 07:58 09/11/16 07:58 09/11/16 08:17 General appearance: Present: cooperative, A&O X 3, morbidly obese, no acute distress, answers questions appropriately - Respiratory Respiratory exam: Present: decreased breath sounds. Absent: prolonged expiratory phase - Cardiovascular Cardiovascular exam: Present: RRR - GI/Abdominal GI/Abdominal exam: Present: soft - Extremities Exam Additional comments: Cellulitis in left lower extremity - Neurological Exam Neurological exam: Present: CN II-XII intact, oriented X3 Internal Medicine: Result - Labs CBC & Chem 7: 09/11/16 04:22 09/11/16 04:22 Labs: Short CBC 09/11/16 Range/Units 04:22 WBC 10.2 (4.3-11.1) K/mcL Hgb 9.9 L (11.5-15.4) g/dL Hct 31.6 L (35.3-44.9) % Plt Count 256 (140-400) K/mcL Neutrophils # 8.1 (1.6-8.9) K/mcL BMP 09/10/16 09/11/16 21:13 04:22 Sodium 137 135 L Potassium 6.0 H 6.8 H* Chloride 106 103 Carbon Dioxide 22 23 BUN 51 H 53 H Creatinine 1.34 H 1.43 H Glucose 331 H 421 H Calcium 10.3 10.1 Urine 09/10/16 Range/Units 20:28 Urine Color Yellow (Yellow) Urine Clarity Clear (Clear) Urine pH 6.0 (5.0-8.0) pH Units Ur Specific [place] 1.011 (1.010-1.025) Urine Protein Trace (Neg-Trace) mg/dL Urine Glucose (UA) 500 H (Normal) mg/dL - ABG Interpretation ABG results: ABG ABG pH 7.31 pH Units (7.32-7.45) L 09/10/16 18:16 ABG pCO2 48 mmHg (35-45) H 09/10/16 18:16 ABG pO2 216 mmHg (85-104) H 09/10/16 18:16 ABG O2 Saturation 100 % (95-98) H 09/10/16 18:16 Consult Discharge Plan - Plan Referrals: Lang Jarvis DO [Primary Care Provider] - 09/22/16 11:30 am (pt to follow-up with Dr. Jarvis for Hospital admission )
[2016-09-11] MEDS ORDERED: Calcium Gluconate 1,000 MG in D5% in Water 100 ML IVPB ONE (11:41)
[2016-09-11] MEDS ORDERED: 0.9 % Sodium Chloride 1,000 ML IVC SCH (11:45)
[2016-09-11] MEDS ORDERED: Vancomycin 2,000 MG in D5% in Water 500 ML IVPB ONE (12:00)
[2016-09-11] MEDS: Budesonide/Formoterol 160/4.5 MDI IH SCH ×2 (12:30→19:53)
[2016-09-11] MEDS: Ipratropium/Albuterol Neb 3 ML IH SCH ×4 (12:30→23:34)
[2016-09-11] MEDS: INSULIN REGULAR IVP SCH (14:34)
--- NOTE | 2016-09-11 16:35 | Electrocardiograph Report ---
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
[2016-09-11] MEDS ORDERED: FOLTX PO SCH (18:00)
[2016-09-11] MEDS ORDERED: Valsartan 160 MG TABLET PO SCH (18:00)
[2016-09-11] MEDS: Melatonin 3 MG TABLET PO SCH (20:32)
[2016-09-11] MEDS ORDERED: NIFEdipine XL (24 HR) 60 MG TAB.ER.24 PO ONE (22:55)
[2016-09-11] MEDS ORDERED: Vancomycin 2,000 MG in D5% in Water 500 ML IVPB SCH (23:00)
[2016-09-12] MEDS: Ipratropium/Albuterol Neb 3 ML IH SCH ×6 (03:40→23:50)
[2016-09-12 06:16] LABS: Albumin 3.1 g/dL (3.5-5.0); Albumin/Globulin Ratio 0.8 (1.1-2.2); Bilirubin,Total 0.5 mg/dL (0.2-1.2); Calcium 9.8 mg/dL (8.6-10.8); Globulin 3.8 g/dL (2.4-3.5); Total Protein 6.9 g/dL (6.0-8.3)
[2016-09-12] MEDS: Budesonide/Formoterol 160/4.5 MDI IH SCH ×2 (07:40→20:01)
[2016-09-12] MEDS: Metoprolol XL (24 HR) Succ 50 MG TAB.ER.24H PO SCH (08:52)
[2016-09-12] MEDS: Aspirin 81 MG TAB.CHEW PO SCH (08:52)
[2016-09-12] MEDS: APIXABAN 5 MG TABLET PO SCH ×2 (08:52→21:35)
[2016-09-12] MEDS: FLUoxetine HCl 10 MG CAPSULE PO SCH (08:52)
[2016-09-12] MEDS: Isosorbide MONOnitrate (24 HR) 30 MG TAB.ER.24H PO SCH (08:52)
[2016-09-12] MEDS: Pregabalin 75 MG CAPSULE PO SCH ×2 (08:52→21:35)
[2016-09-12] MEDS: predniSONE 10 MG TABLET PO SCH (08:52)
[2016-09-12] MEDS ORDERED: Aminoglycoside Consult 1 EACH MC ONE (08:53)
[2016-09-12] MEDS: Cholecalciferol (D-3) 1,000 UNIT TABLET PO SCH (08:53)
[2016-09-12] MEDS: (Febuxostat [Uloric] 80 MG) PO SCH (08:55)
[2016-09-12] MEDS: *HR* Amiodarone 200 MG TABLET PO SCH (08:55)
[2016-09-12] MEDS ORDERED: amLODIPine 5 MG TABLET PO SCH (09:00)
[2016-09-12] MEDS ORDERED: Bumetanide 1 MG TABLET PO ONE (10:40)
--- NOTE | 2016-09-12 10:45 | Internal Med Progress Note ---
Date of Encounter: 09/12/16 Time of Encounter: 10:00 - Assessment and plan (1) Hyperkalemia Current Visit: Yes Status: Resolved Assessment and plan: resolved , pt will need to go home on low dose rosalio and avoid aldactone (2) ANGÉLICA (acute kidney injury) Current Visit: No Status: Resolved Assessment and plan: resolved , now at base line, will gently resume her oral diuretics due to anasarca (3) CHF (congestive heart failure) Current Visit: Yes Status: Chronic Qualifiers: Congestive heart failure type: diastolic Congestive heart failure chronicity: unspecified congestive heart failure chronicity Qualified Code(s) : I50.30 - Unspecified diastolic (congestive) heart failure (4) CHF exacerbation Current Visit: Yes Status: Chronic Assessment and plan: with diastolic disfunction , sue resume oral diuretics pt has multiple allergies to meds , will stop norvasc because of peripheral edema , ROSALIO can be re started in AM Qualifiers: Congestive heart failure type: unspecified congestive heart failure type Qualified Code(s): I50.9 - Heart failure, unspecified (5) CHF (congestive heart failure) Current Visit: No Status: Chronic Qualifiers: Congestive heart failure type: diastolic Congestive heart failure chronicity: unspecified congestive heart failure chronicity Qualified Code(s) : I50.30 - Unspecified diastolic (congestive) heart failure - Subjective Interval history: Pt feels better, renal function much improved - Constitutional Vitals: Temp Pulse Resp BP Pulse Ox 97.6 F 57 16 126/41 97 09/12/16 07:50 09/12/16 07:50 09/12/16 07:50 09/12/16 07:50 09/12/16 08:09 General appearance: Present: cooperative, A&O X 3, morbidly obese, no acute distress, answers questions appropriately - Respiratory Respiratory exam: Present: decreased breath sounds - Cardiovascular Cardiovascular exam: Present: RRR, +S1, +S2 - GI/Abdominal GI/Abdominal exam: Present: normal bowel sounds, soft - Extremities Exam Additional comments: cellulitis in right lower extremity much improved. edema ++ - Neurological Exam Neurological exam: Present: oriented X3 Internal Medicine: Result - Labs CBC & Chem 7: 09/11/16 04:22 09/12/16 05:32 Labs: BMP 09/11/16 09/11/16 09/12/16 11:36 18:16 05:32 Sodium 132 L Potassium 6.5 H* 6.2 H 5.0 H D Chloride 101 Carbon Dioxide 24 BUN 48 H Creatinine 1.19 H Glucose 161 H Calcium 9.8 Liver Function 09/12/16 Range/Units 05:32 Total Bilirubin 0.5 (0.2-1.2) mg/dL AST 11 (5-34) Units/L ALT 34 (0-55) Units/L Alkaline Phosphatase 72 (38-126) Units/L Albumin 3.1 L (3.5-5.0) g/dL - ABG Interpretation ABG results: ABG ABG pH 7.31 pH Units (7.32-7.45) L 09/10/16 18:16 ABG pCO2 48 mmHg (35-45) H 09/10/16 18:16 ABG pO2 216 mmHg (85-104) H 09/10/16 18:16 ABG O2 Saturation 100 % (95-98) H 09/10/16 18:16 Consult Discharge Plan - Plan Referrals: Lang Jarvis DO [Primary Care Provider] - 09/22/16 11:30 am (pt to follow-up with Dr. Jarvis for Hospital admission )
[2016-09-12] MEDS: INSULIN REGULAR IVP SCH (13:26)
[2016-09-12] MEDS: Bumetanide 1 MG/4 ML VIAL IVP SCH (17:37)
[2016-09-12] MEDS: Melatonin 3 MG TABLET PO SCH (21:35)
[2016-09-13] MEDS: Ipratropium/Albuterol Neb 3 ML IH SCH ×6 (04:23→23:44)
[2016-09-13 06:17] LABS: Calcium 9.6 mg/dL (8.6-10.8); Potassium 4.5 mEq/L (3.5-4.5)
[2016-09-13] MEDS ORDERED: methylPREDNISolone 125 MG/2 ML VIAL IVP ONE (07:49)
[2016-09-13] MEDS: Budesonide/Formoterol 160/4.5 MDI IH SCH ×2 (07:49→19:28)
--- NOTE | 2016-09-13 07:58 | Internal Med Progress Note ---
Date of Encounter: 09/13/16 Time of Encounter: 07:55 - Assessment and plan (1) CHF exacerbation Current Visit: Yes Status: Chronic Assessment and plan: Acute diastolic CHF exacerbation Was switched from Lasix to Bumex, continue Bumex IV stop norvasc because of peripheral edema, resume valsartan Continue amiodarone Qualifiers: Congestive heart failure type: unspecified congestive heart failure type Qualified Code(s): I50.9 - Heart failure, unspecified (2) UTI (urinary tract infection) Current Visit: Yes Status: Acute Assessment and plan: She is growing Proteus and Escherichia coli Needs at least 14 days of treatment due to risk of producing stones with a produce infection Has multiple allergies but says that in the past/in the 80s she developed a GI bleed with Bactrim which would be very unlikely and is not actually an allergy. Patient is willing to try Bactrim as he would treat both her UTI and her cellulitis at the same time. Patient will be given Benadryl and Solu-Medrol prior to starting Bactrim and will be monitored closely for any reaction while she is here in the hospital. She understands the risks Qualifiers: Urinary tract infection type: acute cystitis Hematuria presence: without hematuria Qualified Code(s): N30.00 - Acute cystitis without hematuria (3) COPD (chronic obstructive pulmonary disease) Current Visit: Yes Status: Acute Assessment and plan: acute COPD exacerbation likely secondary to viral bronchitis Start Solu-Medrol IV, DuoNeb nebs and oxygen therapy Qualifiers: COPD type: unspecified COPD Qualified Code(s): J44.9 - Chronic obstructive pulmonary disease, unspecified (4) Chronic kidney disease Current Visit: Yes Status: Acute Assessment and plan: Acute on chronic renal failure, stable Qualifiers: Chronic kidney disease stage: stage 3 (moderate) Qualified Code(s): N18.3 - Chronic kidney disease, stage 3 (moderate) (5) Hyperglycemia due to type 2 diabetes mellitus Current Visit: Yes Status: Acute Assessment and plan: Continue insulin pump Qualifiers: Diabetes mellitus long-term insulin use: with long-term use Qualified Code( s): E11.65 - Type 2 diabetes mellitus with hyperglycemia; Z79.4 - retirement ( current) use of insulin (6) Hypothyroidism Current Visit: Yes Status: Acute Qualifiers: Hypothyroidism type: unspecified Qualified Code(s): E03.9 - Hypothyroidism , unspecified (7) Anemia of chronic disease Current Visit: Yes Status: Chronic (8) Cellulitis Current Visit: Yes Status: Chronic Assessment and plan: Right lower extremity acute cellulitis The patient was treated before with doxycycline and received 1 dose of vancomycin Patient can be treated with Bactrim Qualifiers: Site of cellulitis: extremity Site of cellulitis of extremity: lower extremity Laterality: unspecified laterality Qualified Code(s): L03.119 - Cellulitis of unspecified part of limb (9) A-fib Current Visit: No Status: Chronic Assessment and plan: Continue Eliquis due to history of DVT one month ago as well Continue amiodarone and metoprolol High risk for respiratory failure Qualifiers: Atrial fibrillation type: paroxysmal Qualified Code(s): I48.0 - Paroxysmal atrial fibrillation - Time Spent With Patient Greater than 35 minutes - Subjective Interval history: To feeling very short of breath, cystic cannot walk far without help. Denies any chest pain, no abdominal pain, no diarrhea. Has had minimal dysuria. Denies any fevers or any phlegm production. - Constitutional Vitals: Temp Pulse Resp BP Pulse Ox 97.4 F L 57 18 141/53 98 09/13/16 07:16 09/13/16 07:16 09/13/16 07:51 09/13/16 07:16 09/13/16 07:51 General appearance: Present: cooperative, A&O X 3, morbidly obese, no acute distress, answers questions appropriately - Head Head exam: Present: atraumatic, normocephalic - Eye Eye exam: Present: PERRL, conjuntiva pink, sclera anicteric Pupils: Present: PERRL - Neck Neck exam general surgery: Present: supple, trachea midline. Absent: lymphadenopathy - Respiratory Respiratory exam: Present: decreased breath sounds (Very diminished breath sounds with minimal diffuse wheezing), CTAB, wheezes. Absent: accessory muscle use, rales, rhonchi - Cardiovascular Cardiovascular exam: Present: RRR, +S1, +S2. Absent: diastolic murmur, gallop, rubs, systolic murmur - GI/Abdominal GI/Abdominal exam: Present: distended, normal bowel sounds, soft, no peritoneal signs. Absent: tenderness - Extremities Exam Extremities exam: Present: pedal edema, warm, radial pulses palpable and symetrical. Absent: calf tenderness, cyanotic Additional comments: +2 pitting edema in both lower extremities Mild erythema mainly on the right lower extremity - Neurological Exam Neurological exam: Present: CN II-XII intact, oriented X3, no focal deficits. Absent: pronater drift, facial droop, speech deficit - Skin Skin exam: Present: dry, intact Internal Medicine: Result - Labs CBC & Chem 7: 09/11/16 04:22 09/13/16 05:48 Labs: BMP 09/13/16 05:48 Sodium 134 L Potassium 4.5 Chloride 102 Carbon Dioxide 20 BUN 41 H Creatinine 1.24 H Glucose 57 L Calcium 9.6 - ABG Interpretation ABG results: ABG ABG pH 7.31 pH Units (7.32-7.45) L 09/10/16 18:16 ABG pCO2 48 mmHg (35-45) H 09/10/16 18:16 ABG pO2 216 mmHg (85-104) H 09/10/16 18:16 ABG O2 Saturation 100 % (95-98) H 09/10/16 18:16 Consult Discharge Plan - Plan Referrals: Lang Jarvis DO [Primary Care Provider] - 09/22/16 11:30 am (pt to follow-up with Dr. Jarvis for Hospital admission )
[2016-09-13] MEDS: APIXABAN 5 MG TABLET PO SCH ×2 (09:03→20:10)
[2016-09-13] MEDS: Bumetanide 1 MG/4 ML VIAL IVP SCH ×2 (09:03→17:25)
[2016-09-13] MEDS: Aspirin 81 MG TAB.CHEW PO SCH (09:03)
[2016-09-13] MEDS: Sulfamethoxazole/Trimeth SS 1 TAB PO SCH (09:04)
[2016-09-13] MEDS: Pregabalin 75 MG CAPSULE PO SCH ×2 (09:04→20:10)
[2016-09-13] MEDS: *HR* Amiodarone 200 MG TABLET PO SCH (09:04)
[2016-09-13] MEDS: (Febuxostat [Uloric] 80 MG) PO SCH (09:05)
[2016-09-13] MEDS: Isosorbide MONOnitrate (24 HR) 30 MG TAB.ER.24H PO SCH (09:05)
[2016-09-13] MEDS: Valsartan 160 MG TABLET PO SCH (09:05)
[2016-09-13] MEDS: FLUoxetine HCl 10 MG CAPSULE PO SCH (09:06)
[2016-09-13] MEDS: Cholecalciferol (D-3) 1,000 UNIT TABLET PO SCH (09:07)
[2016-09-13] MEDS: Metoprolol XL (24 HR) Succ 50 MG TAB.ER.24H PO SCH (09:07)
[2016-09-13] MEDS: INSULIN REGULAR IVP SCH (15:41)
[2016-09-13] MEDS: methylPREDNISolone 125 MG/2 ML VIAL IV SCH ×2 (17:25→23:33)
[2016-09-13] MEDS: Melatonin 3 MG TABLET PO SCH (20:10)
[2016-09-14] MEDS: Ipratropium/Albuterol Neb 3 ML IH SCH ×4 (03:58→16:16)
[2016-09-14 04:03] LABS: Hematocrit 29.9 % (35.3-44.9); Hemoglobin 9.4 g/dL (11.5-15.4); Mean Corpuscular HGB Conc 31.4 g/dL (31.6-35.5); Mean Corpuscular Hemoglobin 28.7 pg (28.0-33.3); Mean Corpuscular Volume 91.4 fL (83.0-100.0); Platelet Count 215 K/mcL (140-400); Red Blood Count 3.27 M/mcL (3.82-4.97); Red Cell Distribution Width 16.1 % (11.5-14.5)
[2016-09-14 04:16] LABS: Calcium 9.1 mg/dL (8.6-10.8); Potassium 4.5 mEq/L (3.5-4.5)
[2016-09-14] MEDS: Budesonide/Formoterol 160/4.5 MDI IH SCH (08:20)
[2016-09-14] MEDS: Sulfamethoxazole/Trimeth SS 1 TAB PO SCH (08:41)
[2016-09-14] MEDS: Pregabalin 75 MG CAPSULE PO SCH (08:41)
[2016-09-14] MEDS: FLUoxetine HCl 10 MG CAPSULE PO SCH (08:41)
[2016-09-14] MEDS: APIXABAN 5 MG TABLET PO SCH (08:42)
[2016-09-14] MEDS: Aspirin 81 MG TAB.CHEW PO SCH (08:42)
[2016-09-14] MEDS: Isosorbide MONOnitrate (24 HR) 30 MG TAB.ER.24H PO SCH (08:42)
[2016-09-14] MEDS: Cholecalciferol (D-3) 1,000 UNIT TABLET PO SCH (08:42)
[2016-09-14] MEDS: Metoprolol XL (24 HR) Succ 50 MG TAB.ER.24H PO SCH (08:42)
[2016-09-14] MEDS: methylPREDNISolone 125 MG/2 ML VIAL IV SCH (08:43)
[2016-09-14] MEDS: Valsartan 160 MG TABLET PO SCH (08:43)
[2016-09-14] MEDS: *HR* Amiodarone 200 MG TABLET PO SCH (08:43)
[2016-09-14] MEDS: Bumetanide 1 MG/4 ML VIAL IVP SCH (08:44)
[2016-09-14] MEDS: (Febuxostat [Uloric] 80 MG) PO SCH (08:45)
[2016-09-14 11:45] VITALS: BP 132/72
--- NOTE | 2016-09-14 13:24 | Discharge Summary ---
Date of Encounter: 09/14/16 Time of Encounter: 13:22 - Discharge Diagnosis (1) CHF exacerbation Priority: Primary Status: Chronic Comments: Acute diastolic CHF exacerbation in combination with acute COPD exacerbation likely secondary to viral bronchitis Qualifiers: Congestive heart failure type: diastolic Qualified Code(s): I50.33 - Acute on chronic diastolic (congestive) heart failure (2) UTI (urinary tract infection) Priority: Secondary Status: Acute Comments: She is growing Proteus and Escherichia coli Needs at least 14 days of treatment due to risk of producing stones with a Proteus infection Qualifiers: Urinary tract infection type: acute cystitis Hematuria presence: without hematuria Qualified Code(s): N30.00 - Acute cystitis without hematuria (3) COPD (chronic obstructive pulmonary disease) Priority: Primary Status: Acute Comments: acute COPD exacerbation likely secondary to viral bronchitis Qualifiers: COPD type: unspecified COPD Qualified Code(s): J44.9 - Chronic obstructive pulmonary disease, unspecified (4) Chronic kidney disease Priority: Secondary Status: Acute Qualifiers: Chronic kidney disease stage: stage 3 (moderate) Qualified Code(s): N18.3 - Chronic kidney disease, stage 3 (moderate) (5) Hyperglycemia due to type 2 diabetes mellitus Priority: Secondary Status: Acute Comments: On insulin pump Qualifiers: 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: with mcfp use Qualified Code( s): E11.65 - Type 2 diabetes mellitus with hyperglycemia; Z79.4 - tank terminal gauger ( current) use of insulin (6) Hypothyroidism Priority: Secondary Status: Acute Qualifiers: Hypothyroidism type: unspecified Qualified Code(s): E03.9 - Hypothyroidism , unspecified (7) Anemia of chronic disease Priority: Secondary Status: Chronic (8) Cellulitis Priority: Secondary Status: Chronic Comments: Right lower extremity acute cellulitis The patient was treated before with doxycycline and received 1 dose of vancomycin Patient can be treated with Bactrim Qualifiers: Site of cellulitis: extremity Site of cellulitis of extremity: lower extremity Laterality: unspecified laterality Qualified Code(s): L03.119 - Cellulitis of unspecified part of limb (9) A-fib Priority: Secondary Status: Chronic Comments: Continue Eliquis due to history of DVT one month ago as well Qualifiers: Atrial fibrillation type: paroxysmal Qualified Code(s): I48.0 - Paroxysmal atrial fibrillation - Discharge Medications Prescriptions: Furosemide [Lasix] 20 mg PO DAILY 30 Days PredniSONE 10 mg PO DAILY #12 tablet Sulfamethoxazole/Trimeth DS [Bactrim Ds] 1 each PO DAILY #12 tablet Home Medications: Albuterol Neb [Proventil Neb] 2.5 mg IH Q6H PRN 02/07/16 [History] Albuterol Sulfate [Proventil Hfa] 2 puff IH Q4H PRN 02/07/16 [History] FLUoxetine HCl [Prozac] 10 mg PO QAM 02/07/16 [History] Insulin Regular U-500 [HumuLIN R U-500] 0 unit .ROUTE PRN PRN 02/07/16 [History ] Pregabalin [Lyrica] 75 mg PO BID 02/07/16 [History] Spironolactone [Aldactone] 12.5 mg PO QAM 02/07/16 [History] Melatonin 10 mg PO HS #30 capsule 02/11/16 [Rx] B12/Levomefolate Calcium/B-6 [Foltx Tablet] 1 tab PO QPM 02/29/16 [History] Budesonide/Formoterol 160/4.5 [Symbicort 160/4.5] 2 puff IH BIDR 30 Days [Rx] Montelukast [Singulair] 10 mg PO HS 30 Days 03/03/16 [Rx] Aspirin 81 mg PO QAM 03/27/16 [History] Cholecalciferol (Vitamin D3) [Dialyvite Vitamin D] 5,000 unit PO QAM 03/27/16 [ History] Metoprolol XL (24 HR) Succ [Toprol Xl] 25 mg PO QAM 03/27/16 [History] Omeprazole 40 mg PO QPM 03/27/16 [History] Valsartan [Diovan] 320 mg PO QPM 03/27/16 [History] Amiodarone [Cordarone] 200 mg PO DAILY #30 tablet 04/11/16 [Rx] Acetaminophen [Tylenol] 500 mg PO Q6HR PRN 06/12/16 [History] Oxygen 2 l NS AD 06/12/16 [History] Apixaban [Eliquis] 5 mg PO BID 28 Days 08/07/16 [Rx] Febuxostat [Uloric] 80 mg PO DAILY 09/10/16 [History] Levothyroxine [Synthroid] 75 mcg PO DAILY 09/10/16 [History] Furosemide [Lasix] 20 mg PO DAILY 30 Days 09/14/16 [Rx] PredniSONE 10 mg PO DAILY #12 tablet 09/14/16 [Rx] Sulfamethoxazole/Trimeth DS [Bactrim Ds] 1 each PO DAILY #12 tablet 09/14/16 [Rx ] Allergies/Adverse Reactions: Allergies ciprofloxacin [From Cipro] Allergy (Severe, Verified 08/05/16 14:01) Anaphylaxis clarithromycin [From Biaxin] Allergy (Severe, Verified 09/10/16 20:30) Hives clonidine Allergy (Severe, Verified 08/05/16 14:01) Anaphylaxis levofloxacin [From Levaquin] Allergy (Severe, Verified 08/05/16 14:01) Anaphylaxis Penicillins Allergy (Severe, Verified 08/05/16 14:01) Anaphylaxis Tetracycline Allergy (Severe, Verified 09/10/16 20:30) Itching tiotropium [From Spiriva with HandiHaler] Allergy (Severe, Verified 09/10/16 20: 30) Blurry Vision trimethoprim Allergy (Severe, Verified 08/05/16 14:01) Anaphylaxis Warfarin Allergy (Severe, Verified 09/10/16 20:30) Difficulty Breathing acarbose Allergy (Verified 09/10/16 20:30) Blurry Vision Cefaclor Allergy (Verified 04/09/16 08:47) Anaphylaxis codeine Allergy (Verified 09/10/16 20:30) Rash Hydralazine Allergy (Verified 09/10/16 20:30) Hives atorvastatin [From Lipitor] Adverse Reaction (Verified 09/10/16 20:30) Muscle Pain fenofibrate [From Tricor] Adverse Reaction (Verified 09/10/16 20:30) Muscle Pain rivaroxaban [From Xarelto] Adverse Reaction (Verified 09/10/16 16:35) Gastrointestinal Upset sulfamethoxazole Adverse Reaction (Verified 09/10/16 20:30) Gastrointestinal Upset Procedures/tests Complete & Pending: Procedures Performed prior 72 hours Category Date Time Status ECG 12 lead ECG [ECG] Routine Y 09/12/16 21:46 Completed Date of admission: 09/10/16 18:52 Primary care physician: Lang Jarvis DO Consults: 09/11/16 00:52 Consult to Body And Frame Man [CONS] Routine Reason for SW Consult: PT HAS HOME O2/CPAP;/HH 09/11/16 11:24 Consult for Pharmacy Education [CONS] Routine Reason for Consult: pharmacy to dose coumadin Call Completed: Yes - Patient Status Disposition: Home Health Service Condition: Fair Overall status at discharge: patient is progressing back to baseline - Discharge Instructions Follow Up With: Lang Jarvis DO [Primary Care Provider] - 09/22/16 11:30 am (pt to follow-up with Dr. Jarvis for Hospital admission ) Additional Instructions: Follow with primary care physician within the next 7 days. Continue Bactrim daily for a total of 2 weeks. Continue Lasix at home. Follow with nephrology within the next 2 weeks. Taper prednisone. - Diet and Activity Activity: increase activity as tolerated, wear oxygen at night Diet: diabetic diet Hospital course: Ms. Feliciano is a 60 year old female with extensive Past medical history: Diastolic CHF, COPD on home oxygen, CAD, diabetes on insulin pump, hypertension , CK D stage III, thyroid disease, left lower extremity DVT on anticoagulation, atrial fibrillation, morbid obesity, OLIVER Social Hx: Former smoker-quit in 1991, who presented to the ER for worsening shortness of breath. Upon arrival to the ER patient was noted to be in severe respiratory distress and was given 1 dose of Lasix 40 mg IV, which improved her respiratory symptoms. She was noted to be on home oxygen and uses it continuously. Patient reported recently being admitted to the hospital and was found to have acute lower extremity DVT at that time. She was also noted to have worsening kidney function due to which her diuretic therapy was placed on hold. She states that yesterday she got a call from her primary agronomy teacher Dr. Cardoso, who asked her to go to the ER due to her kidney function. Patient was started on the BiPAP. A 2-D echocardiogram from 08/06/2016 consistent with LVEF of 60-65% She reports of currently being treated with doxycycline for her lower extremity cellulitis, and states today is day 5 out of 10 of her doxycycline regimen. She also uses insulin pump for her diabetes. The patient was admitted to the hospital and was given 1 dose of vancomycin for cellulitis. She was continued on Bumex and was diuresed properly. Patient continued to be short of breath and was started on Solu-Medrol which improved her symptoms considerably. The patient was found to have Proteus an Escherichia coli in her urine, she mentioned that she was allergic to Bactrim but it was not actually an allergy as these medication upset at her stomach in the past and she said possibly cause her GI bleed which would be very unlikely. The patient was started on Bactrim in order to cover her leg cellulitis and to treat her bacteriuria. No reaction has been evidence with Bactrim so far. Patient is stable to be discharged today. - Time Spent with Patient Total time spent providing and/or coordinating discharge services: Greater than 30 minutes - Constitutional Vitals: Temp Pulse Resp BP Pulse Ox 98.2 F 64 20 132/72 96 09/14/16 06:53 09/14/16 11:39 09/14/16 12:03 09/14/16 11:44 09/14/16 12:03 General appearance: Present: cooperative, A&O X 3, morbidly obese, no acute distress, answers questions appropriately - Head Head exam: Present: atraumatic, normocephalic - Eye Eye exam: Present: PERRL, conjuntiva pink, sclera anicteric Pupils: Present: PERRL - Neck Neck exam general surgery: Present: supple, trachea midline. Absent: lymphadenopathy - Respiratory Respiratory exam: Present: decreased breath sounds, CTAB. Absent: accessory muscle use, rales, rhonchi, wheezes - Cardiovascular Cardiovascular exam: Present: RRR, +S1, +S2. Absent: diastolic murmur, gallop, rubs, systolic murmur - GI/Abdominal GI/Abdominal exam: Present: distended, normal bowel sounds, soft, no peritoneal signs. Absent: tenderness - Extremities Exam Extremities exam: Present: pedal edema, warm, radial pulses palpable and symetrical. Absent: calf tenderness, cyanotic Additional comments: +2 pitting edema in both lower extremities Mild erythema mainly on the right lower extremity has resolved - Neurological Exam Neurological exam: Present: CN II-XII intact, oriented X3, no focal deficits. Absent: pronater drift, facial droop, speech deficit - Skin Skin exam: Present: dry, intact
--- NOTE | 2016-09-14 13:42 | Physician Discharge Referral ---
Home Health/Hosp Referral Info Transfer to: Home Health Provider in Charge Post Discharge: PCP - Diagnosis (1) CHF exacerbation Status: Chronic (2) UTI (urinary tract infection) Status: Acute (3) COPD (chronic obstructive pulmonary disease) Status: Acute (4) Chronic kidney disease Status: Acute (5) Hyperglycemia due to type 2 diabetes mellitus Status: Acute (6) Hypothyroidism Status: Acute (7) Anemia of chronic disease Status: Chronic (8) Cellulitis Status: Chronic (9) A-fib Status: Chronic - Respiratory Orders Oxygen / L per min Smoking Cessation: Smoking cessation has been advised. For more information, call the [place] Tobacco Quit Line at 9-140-JLZW-NOW. - Diet/Nutrition Diet/Nutrition Orders: No Added Salt (DOYLE) (ADA diet 1800 kcal) - Services Needed Following services are medically necessary services: Nursing, Home Health Aide, Physical Therapy - Transfer Medications Prescriptions: Furosemide [Lasix] 20 mg PO DAILY 30 Days PredniSONE 10 mg PO DAILY #12 tablet Sulfamethoxazole/Trimeth DS [Bactrim Ds] 1 each PO DAILY #12 tablet Home Medications: Albuterol Neb [Proventil Neb] 2.5 mg IH Q6H PRN 02/07/16 [History] Albuterol Sulfate [Proventil Hfa] 2 puff IH Q4H PRN 02/07/16 [History] FLUoxetine HCl [Prozac] 10 mg PO QAM 02/07/16 [History] Insulin Regular U-500 [HumuLIN R U-500] 0 unit .ROUTE PRN PRN 02/07/16 [History ] Pregabalin [Lyrica] 75 mg PO BID 02/07/16 [History] Spironolactone [Aldactone] 12.5 mg PO QAM 02/07/16 [History] Melatonin 10 mg PO HS #30 capsule 02/11/16 [Rx] B12/Levomefolate Calcium/B-6 [Foltx Tablet] 1 tab PO QPM 02/29/16 [History] Budesonide/Formoterol 160/4.5 [Symbicort 160/4.5] 2 puff IH BIDR 30 Days [Rx] Montelukast [Singulair] 10 mg PO HS 30 Days 03/03/16 [Rx] Aspirin 81 mg PO QAM 03/27/16 [History] Cholecalciferol (Vitamin D3) [Dialyvite Vitamin D] 5,000 unit PO QAM 03/27/16 [ History] Metoprolol XL (24 HR) Succ [Toprol Xl] 25 mg PO QAM 03/27/16 [History] Omeprazole 40 mg PO QPM 03/27/16 [History] Valsartan [Diovan] 320 mg PO QPM 03/27/16 [History] Amiodarone [Cordarone] 200 mg PO DAILY #30 tablet 04/11/16 [Rx] Acetaminophen [Tylenol] 500 mg PO Q6HR PRN 06/12/16 [History] Oxygen 2 l NS AD 06/12/16 [History] Apixaban [Eliquis] 5 mg PO BID 28 Days 08/07/16 [Rx] Febuxostat [Uloric] 80 mg PO DAILY 09/10/16 [History] Levothyroxine [Synthroid] 75 mcg PO DAILY 09/10/16 [History] Furosemide [Lasix] 20 mg PO DAILY 30 Days 09/14/16 [Rx] PredniSONE 10 mg PO DAILY #12 tablet 09/14/16 [Rx] Sulfamethoxazole/Trimeth DS [Bactrim Ds] 1 each PO DAILY #12 tablet 09/14/16 [Rx ] Allergies/Adverse Reactions: Allergies ciprofloxacin [From Cipro] Allergy (Severe, Verified 08/05/16 14:01) Anaphylaxis clarithromycin [From Biaxin] Allergy (Severe, Verified 09/10/16 20:30) Hives clonidine Allergy (Severe, Verified 08/05/16 14:01) Anaphylaxis levofloxacin [From Levaquin] Allergy (Severe, Verified 08/05/16 14:01) Anaphylaxis Penicillins Allergy (Severe, Verified 08/05/16 14:01) Anaphylaxis Tetracycline Allergy (Severe, Verified 09/10/16 20:30) Itching tiotropium [From Spiriva with HandiHaler] Allergy (Severe, Verified 09/10/16 20: 30) Blurry Vision Warfarin Allergy (Severe, Verified 09/10/16 20:30) Difficulty Breathing acarbose Allergy (Verified 09/10/16 20:30) Blurry Vision Cefaclor Allergy (Verified 04/09/16 08:47) Anaphylaxis codeine Allergy (Verified 09/10/16 20:30) Rash Hydralazine Allergy (Verified 09/10/16 20:30) Hives atorvastatin [From Lipitor] Adverse Reaction (Verified 09/10/16 20:30) Muscle Pain fenofibrate [From Tricor] Adverse Reaction (Verified 09/10/16 20:30) Muscle Pain rivaroxaban [From Xarelto] Adverse Reaction (Verified 09/10/16 16:35) Gastrointestinal Upset Certification: Further, I certify that my clinical findings support that this patient is homebound (i.e. absences from home require considerable and taxing effort and are for medical reasons or jainism services or infrequently or short duration when for other reasons) because: Homebound Reason: Patient requires assistance of a person or device to safely leave home Attestation: My signature below is to certify that this patient is under my care and that I, or nurse practitioner, or a physician's compliance assistant working with me, has a face-to -face encounter with this patient.
--- NOTE | 2016-09-14 13:42 | Electrocardiograph Report ---
[facility] Test Date: 2016-09-12 Pat Name: FRANCK ELIAS Department: 112 Room: 2A32 Gender: F Director Educational Radio: : 1955 Requested By: Filipe Babra Order Number: [id number] Reading MD: True Atkins DO Measurements Intervals [place] Rate: 64 P: 14 MN: 131 QRS: -15 QRSD: 112 T: 79 QT: 434 QTc: 443 Interpretive Statements Sinus rhythm Intraventricular conduction delay Nonspecific ST-T changes Electronically Signed On 09-14-16 13:41:46 EST by True Atkins DO
[2016-09-14] MEDS: INSULIN REGULAR IVP SCH (14:55)
[2016-09-15] MEDS ORDERED: Sulfamethoxazole/Trimeth DS 1 EACH TABLET PO SCH (09:00)
== END 2016-09-14 16:47 | disposition home health service (06) | DRG 291 ==
LOC: 2ANU 16:17 → EMEROO 16:17 → SUATTDRO 18:52 → OBSVTOIN 18:52 → 2ANU 19:23
PROVIDERS: ADMIT Internal Medicine; ATTEND Internal Medicine

== ENCOUNTER 2016-10-09 08:51 | Inpatient (IN) ==
--- NOTE | 2016-10-09 09:20 | Emergency Department Note ---
Disposition Clinical Impression: Dependent edema Cellulitis Qualifiers: Site of cellulitis: extremity Site of cellulitis of extremity: lower extremity Laterality: left Qualified Code(s): L03.116 - Cellulitis of left lower limb Chronic kidney disease (CKD) Qualifiers: Chronic kidney disease stage: stage 4 (severe) Qualified Code(s): N18.4 - Chronic kidney disease, stage 4 (severe) Disposition: Admitted As Inpatient Condition: Fair Referrals: Lang Jarvis DO [Primary Care Provider] - Forms: ED Satisfaction Letter Time of Disposition: 12:07 Skin/Abscess/FB HPI Chief complaint: ED Skin/Abscess/Foreign Body Stated complaint: cellulitis Time Seen by Provider: 10/09/16 09:10 Source: patient, family Mode of arrival: wheelchair Limitations: no limitations Nursing Notes Reviewed: Yes Vital Signs Reviewed: Yes Pt Subjective Complaint: discoloration, other (cellulitis of the lower left extremity and pain in the upper ) Home Medications Medication Instructions Recorded Confirmed Albuterol Neb [Proventil Neb] 2.5 mg IH Q6H PRN 02/07/16 09/10/16 Albuterol Sulfate [Proventil Hfa] 2 puff IH Q4H PRN 02/07/16 09/10/16 FLUoxetine HCl [Prozac] 10 mg PO QAM 02/07/16 09/10/16 Insulin Regular U-500 [HumuLIN R 0 unit .ROUTE PRN PRN 02/07/16 09/10/16 U-500] Pregabalin [Lyrica] 75 mg PO BID 02/07/16 09/10/16 Spironolactone [Aldactone] 12.5 mg PO QAM 02/07/16 09/10/16 B12/Levomefolate Calcium/B-6 1 tab PO QPM 02/29/16 09/10/16 [Foltx Tablet] Aspirin 81 mg PO QAM 03/27/16 09/10/16 Cholecalciferol (Vitamin D3) 5,000 unit PO QAM 03/27/16 09/10/16 [Dialyvite Vitamin D] Metoprolol XL (24 HR) Succ [Toprol 25 mg PO QAM 03/27/16 09/10/16 Xl] Omeprazole 40 mg PO QPM 03/27/16 09/10/16 Valsartan [Diovan] 320 mg PO QPM 03/27/16 09/10/16 Acetaminophen [Tylenol] 500 mg PO Q6HR PRN 06/12/16 09/10/16 Oxygen 2 l NS AD 06/12/16 09/10/16 Febuxostat [Uloric] 80 mg PO DAILY 09/10/16 09/10/16 Levothyroxine [Synthroid] 75 mcg PO DAILY 09/10/16 09/10/16 Previous Rx's Medication Instructions Recorded Melatonin 10 mg PO HS #30 capsule 02/11/16 Budesonide/Formoterol 160/4.5 2 puff IH BIDR 30 Days 03/03/16 [Symbicort 160/4.5] Montelukast [Singulair] 10 mg PO HS 30 Days 03/03/16 Amiodarone [Cordarone] 200 mg PO DAILY #30 tablet 04/11/16 Apixaban [Eliquis] 5 mg PO BID 28 Days 08/07/16 Furosemide [Lasix] 20 mg PO DAILY 30 Days 09/14/16 PredniSONE 10 mg PO DAILY #12 tablet 09/14/16 Sulfamethoxazole/Trimeth DS 1 each PO DAILY #12 tablet 09/14/16 [Bactrim Ds] Allergies Allergy/AdvReac Type Severity Reaction Status Date / Time ciprofloxacin [From Cipro] Allergy Severe Anaphylaxis Verified 08/05/16 14:01 clarithromycin [From Biaxin] Allergy Severe Hives Verified 09/10/16 20:30 clonidine Allergy Severe Anaphylaxis Verified 08/05/16 14:01 levofloxacin [From Levaquin] Allergy Severe Anaphylaxis Verified 08/05/16 14:01 Penicillins Allergy Severe Anaphylaxis Verified 08/05/16 14:01 Tetracycline Allergy Severe Itching Verified 09/10/16 20:30 tiotropium Allergy Severe Blurry Verified 09/10/16 20:30 [From Spiriva with Vision HandiHaler] Warfarin Allergy Severe Difficulty Verified 09/10/16 20:30 Breathing acarbose Allergy Blurry Verified 09/10/16 20:30 Vision Cefaclor Allergy Anaphylaxis Verified 04/09/16 08:47 codeine Allergy Rash Verified 09/10/16 20:30 Hydralazine Allergy Hives Verified 09/10/16 20:30 atorvastatin [From Lipitor] AdvReac Muscle Pain Verified 09/10/16 20:30 fenofibrate [From Tricor] AdvReac Muscle Pain Verified 09/10/16 20:30 rivaroxaban [From Xarelto] AdvReac Gastrointestinal Verified 09/10/16 16:35 Upset Past Medical History - Past Medical History Medical history: Reports: atrial fibrillation, CHF, COPD, coronary artery disease, diabetes, GI bleed, hypertension, renal disease, thyroid disease Surgical history: Reports: angioplasty/stent, other Psychiatric history: Reports: anxiety, depression UNDERWRITER SOLICITATION 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 history: Reports: no UNDERWRITER SOLICITATION DIRECTOR history - Social History Smoking Status: Former smoker Smokeless Tobacco Status: No Alcohol use: Reports: none Drug use: Reports: none Physical Exam - General Limitations: no limitations General appearance: alert, in no apparent distress Course Vital Signs Temperature 98.2 F 10/09/16 08:52 Pulse Rate 61 10/09/16 08:52 Respiratory Rate 20 10/09/16 08:52 Blood Pressure 112/3 10/09/16 08:52 O2 Sat by Pulse Oximetry 91 L 10/09/16 08:52 Temperature 98.2 F 10/09/16 08:52 Pulse Rate 61 10/09/16 08:52 Respiratory Rate 20 10/09/16 08:52 Blood Pressure 112/3 10/09/16 08:52 O2 Sat by Pulse Oximetry 91 L 10/09/16 08:52 Oxygen Delivery Oxygen Delivery Nasal Cannula Skin/Abscess/Foreign Body - Medical Records Medical records reviewed: Yes I reviewed the patient's medical records. - Lab Data Lab results reviewed: Yes I reviewed the patient's lab results. Result diagrams: 10/09/16 09:38 10/09/16 09:38 Lab Results 10/09/16 10/09/16 10/09/16 Range/Units 09:38 09:38 09:38 WBC 11.1 (4.3-11.1) K/mcL RBC 3.15 L (3.82-4.97) M/mcL Hgb 9.2 L (11.5-15.4) g/dL Hct 29.2 L (35.3-44.9) % MCV 92.7 (83.0-100.0) fL MCH 29.2 (28.0-33.3) pg MCHC 31.5 L (31.6-35.5) g/dL RDW 17.3 H (11.5-14.5) % Plt Count 219 (140-400) K/mcL MPV 9.2 L (9.4-12.4) fL Immature Gran % 2.4 (0-4) % Seg Neutrophils % 74.6 % Lymphocytes % 15.1 % Monocytes % 6.1 % Eosinophils % 1.4 % Basophils % 0.4 % Neutrophils # 8.3 (1.6-8.9) K/mcL Lymphocytes # 1.7 (0.6-4.6) K/mcL Monocytes # 0.7 (0.0-1.3) K/mcL Eosinophils # 0.2 (0.0-0.6) K/mcL Basophils # 0.0 (0.0-0.2) K/mcL Nucleated RBCs/100 WBC 0.5 H (0) /100 WBC VBG pH (7.32-7.42) pH Units VBG pCO2 (41-51) mmHg VBG pO2 (25-40) mmHg VBG HCO3 (21-27) mEq/L Sodium 130 L (136-145) mEq/L Potassium 5.2 H (3.5-4.5) mEq/L Chloride 98 (98-109) mEq/L Carbon Dioxide 22 (19-29) mEq/L BUN 56 H (7-20) mg/dL Creatinine 2.60 H (0.57-1.11) mg/dL Est GFR ( Amer) 23 L (> 60) Est GFR (Non-Af Amer) 19 L (> 60) BUN/Creatinine Ratio 22 (6-26) Glucose 367 H (70-99) mg/dL Calculated Osmolality 300 (280-300) Calcium 8.6 (8.6-10.8) mg/dL Total Bilirubin 0.8 (0.2-1.2) mg/dL AST 20 (5-34) Units/L ALT 28 (0-55) Units/L Alkaline Phosphatase 103 (38-126) Units/L Troponin I 0.02 (0-0.03) ng/mL B-Natriuretic Peptide (0-100) pg/mL Serum Total Protein 5.9 L (6.0-8.3) g/dL Albumin 2.6 L (3.5-5.0) g/dL Globulin 3.3 (2.4-3.5) g/dL Albumin/Globulin Ratio 0.8 L (1.1-2.2) 02/03/17 02/03/17 Range/Units 09:38 09:38 WBC (4.3-11.1) K/mcL RBC (3.82-4.97) M/mcL Hgb (11.5-15.4) g/dL Hct (35.3-44.9) % MCV (83.0-100.0) fL MCH (28.0-33.3) pg MCHC (31.6-35.5) g/dL RDW (11.5-14.5) % Plt Count (140-400) K/mcL MPV (9.4-12.4) fL Immature Gran % (0-4) % Seg Neutrophils % % Lymphocytes % % Monocytes % % Eosinophils % % Basophils % % Neutrophils # (1.6-8.9) K/mcL Lymphocytes # (0.6-4.6) K/mcL Monocytes # (0.0-1.3) K/mcL Eosinophils # (0.0-0.6) K/mcL Basophils # (0.0-0.2) K/mcL Nucleated RBCs/100 WBC (0) /100 WBC VBG pH 7.26 L (7.32-7.42) pH Units VBG pCO2 55 H (41-51) mmHg VBG pO2 51 H (25-40) mmHg VBG HCO3 24.7 (21-27) mEq/L Sodium (136-145) mEq/L Potassium (3.5-4.5) mEq/L Chloride (98-109) mEq/L Carbon Dioxide (19-29) mEq/L BUN (7-20) mg/dL Creatinine (0.57-1.11) mg/dL Est GFR ( Amer) (> 60) Est GFR (Non-Af Amer) (> 60) BUN/Creatinine Ratio (6-26) Glucose (70-99) mg/dL Calculated Osmolality (280-300) Calcium (8.6-10.8) mg/dL Total Bilirubin (0.2-1.2) mg/dL AST (5-34) Units/L ALT (0-55) Units/L Alkaline Phosphatase (38-126) Units/L Troponin I (0-0.03) ng/mL B-Natriuretic Peptide 173 H (0-100) pg/mL Serum Total Protein (6.0-8.3) g/dL Albumin (3.5-5.0) g/dL Globulin (2.4-3.5) g/dL Albumin/Globulin Ratio (1.1-2.2) - Radiology Data Radiology results reviewed: Yes I reviewed the patient's radiology results. - EKG Data EKG attestation: Yes I reviewed and interpreted this EKG. EKG results narrative: Normal sinus rhythm rate 61 IA 191 QRS 117 QT/QTc 41/404. No acute ST segment elevation noted. S.B.A.R. - S.B.A.RPaola Background: Presenting Complaint, Relevant PMH, Meds, & Allergies Assessment: Vital Signs, Course and respsone to treatment, Exam Concerns, Pertinant Lab Results S.B.A.R. Report Given to: MD Sukhdev SilvaBPaolaAManfred Repor Time: 11:06 Attestation Statement - Attestation Attestation: I examined this patient and my medical decision-making was reviewed with the SALVAGER/PA/Advanced Practice Nurse/Resident Physician. I agree with the documented findings, disposition and treatment plan as described except to the extent set forth below. Care assumed from Ekta nurse practitioner at 11 AM pending duplex ultrasound and planned admission. Patient resting comfortably on exam. She does have dependent edema to her lower extremity as bilaterally with circumferential erythema. Superficial blisters which are unroofed are present. Labs reviewed by me. Duplex ultrasound negative for DVT. Patient to be admitted. Dr. Montalvo admits
[2016-10-09 09:47] LABS: Basophils % 0.4 %; Eosinophils # 0.2 K/mcL (0.0-0.6); Eosinophils % 1.4 %; Hematocrit 29.2 % (35.3-44.9); Hemoglobin 9.2 g/dL (11.5-15.4); Immature Granulocytes % 2.4 % (0-4); Lymphocytes # 1.7 K/mcL (0.6-4.6); Lymphocytes % 15.1 %; Mean Corpuscular HGB Conc 31.5 g/dL (31.6-35.5); Mean Corpuscular Hemoglobin 29.2 pg (28.0-33.3); Mean Corpuscular Volume 92.7 fL (83.0-100.0); Mean Platelet Volume 9.2 fL (9.4-12.4); Monocytes # 0.7 K/mcL (0.0-1.3); Monocytes % 6.1 %; Neutrophils # 8.3 K/mcL (1.6-8.9); Nucleated Red Blood Cells 0.5 /100 WBC (0); Platelet Count 219 K/mcL (140-400); Red Blood Count 3.15 M/mcL (3.82-4.97); Red Cell Distribution Width 17.3 % (11.5-14.5); Segmented Neutrophils % 74.6 %
[2016-10-09 09:54] LABS: VBG HCO3 24.7 mEq/L (21-27); VBG PH 7.26 pH Units (7.32-7.42)
[2016-10-09 10:01] LABS: Albumin 2.6 g/dL (3.5-5.0); Albumin/Globulin Ratio 0.8 (1.1-2.2); Bilirubin,Total 0.8 mg/dL (0.2-1.2); Calcium 8.6 mg/dL (8.6-10.8); Globulin 3.3 g/dL (2.4-3.5); Potassium 5.2 mEq/L (3.5-4.5); Total Protein 5.9 g/dL (6.0-8.3)
[2016-10-09] MEDS ORDERED: Furosemide 40 MG/4 ML VIAL IVP ONE (10:38)
[2016-10-09] MEDS ORDERED: Clindamycin 600 MG/50 ML 600 MG/50 ML IV.SOLN IVPB ONE (12:04)
[2016-10-09] MEDS ORDERED: Naloxone 0.4 MG/ML INJ IVP PRN (13:00)
[2016-10-09] MEDS ORDERED: Ondansetron 4 MG/2 ML VIAL IVP PRN (13:00)
[2016-10-09] MEDS ORDERED: *HR* Dextrose 50 % in Water (Syg) 50 ML SYRINGE IVP PRN (13:08)
[2016-10-09] MEDS ORDERED: Dextrose Gel 15 GM PO PRN ×2 (13:08)
[2016-10-09] MEDS ORDERED: D5% in Water 1,000 ML IV PRN (13:08)
[2016-10-09] MEDS ORDERED: NON-FORMULARY MEDICATION 1 EACH EACH (Oxygen [Oxygen] 2 L) NS SCH (13:15)
--- NOTE | 2016-10-09 13:18 | Internal Med History&Physical ---
Date of Encounter: 10/09/16 Time of Encounter: 12:30 Assessment and Plan (1) Cellulitis of left lower extremity Current visit: Yes Status: Acute -Wound cultures obtained in the ER -Started Clindamycin IV -f/u wound cultures -pain control -consider ID eval if symptoms persist despite antibiotic therapy (2) Acute kidney injury superimposed on chronic kidney disease Current visit: Yes Status: Acute LIkely drug induced will hold Bumetanide at this time Patient states she takes Bumetanide for her CHF and peripheral edema and is not on Lasix Noted to have severe bilaterally lower extremity pitting edema in the ER, and received one dose of Lasix 40mg IV Will hold nephrotoxic agents continue to closely monitor kidney function (3) Hyperglycemia due to type 2 diabetes mellitus Current visit: Yes Status: Acute Patient uses insulin at home on a PRN basis Hyperglycemia likely secondary to noncompliance started correctional medium dose insulin algorithm as needed hold oral antihyperglycemic agents at this time continue to monitor fingerstick and blood glucose Qualifiers: Diabetes mellitus chcf insulin use: unspecified chcf insulin use status Qualified Code(s): E11.65 - Type 2 diabetes mellitus with hyperglycemia (4) Hyperkalemia Current visit: Yes Status: Acute No EKG changes noted at this time Will continue to monitor (5) CHF (congestive heart failure) Current visit: Yes Status: Chronic Not in acute exacerbation but due to bilateral LE pitting edema, patient received Lasix 40mg IV in the ER consider initiating daily diuretic therapy continue to monitor O2 and provide O2 supplementation as needed Qualifiers: Congestive heart failure type: unspecified congestive heart failure type Congestive heart failure chronicity: chronic Qualified Code(s): I50.9 - Heart failure, unspecified (6) DVT (deep venous thrombosis) Current visit: Yes Status: Chronic Repeat LLE Venous Doppler: negative for DVT continue anticoagulation with Eliquis Qualifiers: DVT location: lower extremity Affected thrombotic vein of extremity: unspecified vein of extremity Laterality: left Chronicity: chronic Qualified Code(s): I82.502 - Chronic embolism and thrombosis of unspecified deep veins of left lower extremity (7) COPD (chronic obstructive pulmonary disease) Current visit: Yes Status: Chronic Not in acute exacerbation Continue home medications Bronchodilators as needed O2 supplementation Qualifiers: COPD type: unspecified COPD Qualified Code(s): J44.9 - Chronic obstructive pulmonary disease, unspecified (8) Hypothyroidism Current visit: Yes Status: Chronic Continue levothyroxine Qualifiers: Hypothyroidism type: unspecified Qualified Code(s): E03.9 - Hypothyroidism , unspecified (9) Atrial fibrillation Current visit: Yes Status: Chronic Rate controlled Anticoagulated with Eliquis Continue home medications Qualifiers: Atrial fibrillation type: chronic Qualified Code(s): I48.2 - Chronic atrial fibrillation (10) OLIVER (obstructive sleep apnea) Current visit: Yes Status: Chronic Continue BiPAP support overnight (11) Morbid obesity with BMI of 50.0-59.9, adult Current visit: Yes Status: Chronic (12) DVT prophylaxis Current visit: Yes Status: Acute Anticoagulated with Eliquis Internal Medicine - H&P: HPI Chief complaint: left lower extremity pain Admitted From: Home Plans for Post Hospital Care: Home History of present illness: Ms. Feliciano is a 61 year old female with extensive medical history who presented to the ER for worsening left lower extremity pain and erythema. Patient states she has history of left lower extremity clot and has been experiencing pain and redness in that leg for the last month. She states she had difficulty walking on it earlier today which prompted her visit to the ER. She has noticed worsening swelling and redness and was concerned for recurrent DVT which was the main reason why she came to the ER. Patient had a left lower extremity Doppler done in the ER which is negative for DVT. Patiently is currently on Eliquis for LLE DVT. She states she took hydrocodone prior to arrival to the ER which provided her with adequate pain relief. At this time she is resting in bed and states her pain is coming back again. She is noted to have clear discharge oozing from her left lower extremity. She denies any headache, dizziness, lightheadedness, chest pain, palpitations, abdominal pain, nausea, vomiting, fever, or chills. Shee states she has been able to ambulate well until this morning. She also reports of being on home oxygen. She has history of recurrent cellulitis in her lower extremities and recently finished treatment for it a last month. Past medical history: CHF, COPD on home oxygen, CAD, diabetes on insulin pump, hypertension, CK D stage III, thyroid disease, left lower extremity DVT on anticoagulation, atrial fibrillation, morbid obesity, OLIVER Social Hx: Former smoker-quit in 1991 Past Med Surg Social Fam HX - Past Medical History Medical history: atrial fibrillation, CHF, COPD, coronary artery disease, diabetes, GI bleed, hypertension, renal disease, thyroid disease Psychiatric history: anxiety, depression - Past Surgical History Surgical History: angioplasty/stent, other - Social History Smoking Status: Former smoker Smokeless Tobacco Status: No Alcohol use: none Drug use: none - Family History Mother Family Member Ethnicity: Non- Living Status: Still Living Hx Family Cardiac Disorders: Yes Hx Family Neurologic Disorders: Yes (Dementia) Brother Living Status: Hx Family Cancer: Yes (colon cancer) Son Living Status: Still Living Hx Family GI Disorders: Yes (high grade dysplasia polyps) Father Adopted: No Family Member Ethnicity: Non- Living Status: Hx Family Cardiac Disorders: Yes Hx Family Respiratory Disorders: Yes (COPD) Hx Family Cancer: No Hx Family GI Disorders: No Hx Family Endocrine Disorder: No Hx Family Neuromuscular Disorders: No Hx Family Neurologic Disorders: No Hx Family HEENT Disorders: No Hx Family Autoimmune Disorders: No Internal Medicine - H&P: Meds Albuterol Neb [Proventil Neb] 2.5 mg IH Q6H PRN 02/07/16 [History] Albuterol Sulfate [Proventil Hfa] 2 puff IH Q4H PRN 02/07/16 [History] FLUoxetine HCl [Prozac] 10 mg PO QAM 02/07/16 [History] Insulin Regular U-500 [HumuLIN R U-500] 0 unit .ROUTE PRN PRN 02/07/16 [History ] Pregabalin [Lyrica] 75 mg PO BID 02/07/16 [History] Spironolactone [Aldactone] 12.5 mg PO QAM 02/07/16 [History] Melatonin 10 mg PO HS #30 capsule 02/11/16 [Rx] B12/Levomefolate Calcium/B-6 [Foltx Tablet] 1 tab PO QPM 02/29/16 [History] Budesonide/Formoterol 160/4.5 [Symbicort 160/4.5] 2 puff IH BIDR 30 Days [Rx] Montelukast [Singulair] 10 mg PO HS 30 Days 03/03/16 [Rx] Aspirin 81 mg PO QAM 03/27/16 [History] Cholecalciferol (Vitamin D3) [Dialyvite Vitamin D] 5,000 unit PO QAM 03/27/16 [ History] Metoprolol XL (24 HR) Succ [Toprol Xl] 25 mg PO QAM 03/27/16 [History] Omeprazole 40 mg PO QPM 03/27/16 [History] Valsartan [Diovan] 320 mg PO QPM 03/27/16 [History] Amiodarone [Cordarone] 200 mg PO DAILY #30 tablet 04/11/16 [Rx] Acetaminophen [Tylenol] 500 mg PO Q6HR PRN 06/12/16 [History] Oxygen 2 l NS AD 06/12/16 [History] Apixaban [Eliquis] 5 mg PO BID 28 Days 08/07/16 [Rx] Febuxostat [Uloric] 80 mg PO DAILY 09/10/16 [History] Levothyroxine [Synthroid] 75 mcg PO DAILY 09/10/16 [History] Bumetanide [Bumex] 1 mg PO BID 10/09/16 [History] HYDROcodone/Acet 5/325 mg [[place] 5-325 mg] 1 tab PO Q8H PRN 10/09/16 [History] Allergies ciprofloxacin [From Cipro] Allergy (Severe, Verified 08/05/16 14:01) Anaphylaxis clarithromycin [From Biaxin] Allergy (Severe, Verified 09/10/16 20:30) Hives clonidine Allergy (Severe, Verified 08/05/16 14:01) Anaphylaxis levofloxacin [From Levaquin] Allergy (Severe, Verified 08/05/16 14:01) Anaphylaxis Penicillins Allergy (Severe, Verified 08/05/16 14:01) Anaphylaxis Tetracycline Allergy (Severe, Verified 09/10/16 20:30) Itching tiotropium [From Spiriva with HandiHaler] Allergy (Severe, Verified 09/10/16 20: 30) Blurry Vision Warfarin Allergy (Severe, Verified 09/10/16 20:30) Difficulty Breathing acarbose Allergy (Verified 09/10/16 20:30) Blurry Vision Cefaclor Allergy (Verified 04/09/16 08:47) Anaphylaxis codeine Allergy (Verified 09/10/16 20:30) Rash Hydralazine Allergy (Verified 09/10/16 20:30) Hives atorvastatin [From Lipitor] Adverse Reaction (Verified 09/10/16 20:30) Muscle Pain fenofibrate [From Tricor] Adverse Reaction (Verified 09/10/16 20:30) Muscle Pain rivaroxaban [From Xarelto] Adverse Reaction (Verified 09/10/16 16:35) Gastrointestinal Upset All Systems PM: A 10-system review of systems was performed and is negative for pertinent findings except as documented above in the HPI. - Constitutional Constitutional: as per HPI - Constitutional Vitals: Temp Pulse Resp BP Pulse Ox 98.2 F 61 20 112/3 91 L 10/09/16 08:52 10/09/16 08:52 10/09/16 08:52 10/09/16 08:52 10/09/16 08:52 General appearance: Present: cooperative, A&O X 3, morbidly obese, no acute distress, answers questions appropriately - Head Head exam: Present: atraumatic, normocephalic - Eye Eye exam: Present: normal appearance, conjuntiva pink, sclera anicteric - Respiratory Respiratory exam: Present: decreased breath sounds. Absent: respiratory distress, wheezes - Cardiovascular Cardiovascular exam: Present: RRR, +S1, +S2 - GI/Abdominal GI/Abdominal exam: Present: distended (obese), normal bowel sounds, soft. Absent: tenderness - Extremities Exam Extremities exam: Present: pedal edema (bilateral 2+pitting edema, LLE erythema extending to mid magana, wet weeping ulcers noted on distal LLE), warm, radial pulses palpable and symetrical. Absent: calf tenderness - Neurological Exam Neurological exam: Present: alert, oriented X3 - Psychiatric Psychiatric exam: Present: normal affect, normal mood Internal Med - H&P Results - Labs CBC & Chem 7: 10/09/16 09:38 10/09/16 09:38
[2016-10-09] MEDS ORDERED: Acetaminophen IV 1,000 MG/100 ML INFUS..BTL IVPB ONE (16:36)
[2016-10-09] MEDS: Insulin LISPRO 300 UNITS/3 ML VIAL SQ SCH ×2 (17:56→20:09)
[2016-10-09] MEDS ORDERED: Valsartan 160 MG TABLET PO SCH (18:00)
[2016-10-09] MEDS: Melatonin 3 MG TABLET PO SCH (20:08)
[2016-10-09] MEDS: APIXABAN 5 MG TABLET PO SCH (20:09)
[2016-10-09] MEDS: Pregabalin 75 MG CAPSULE PO SCH (20:09)
[2016-10-09] MEDS: LEVOMEFOLATE CALCIUM PO SCH (20:10)
[2016-10-09] MEDS: B6 PO SCH (20:10)
[2016-10-09] MEDS: B12 PO SCH (20:10)
[2016-10-09] MEDS: Clindamycin 300 MG in D5% in Water 50 ML IVPB SCH (20:34)
[2016-10-09] MEDS: Budesonide/Formoterol 160/4.5 MDI IH SCH (20:46)
[2016-10-10 03:28] LABS: Basophils % 0.3 %; Eosinophils # 0.1 K/mcL (0.0-0.6); Eosinophils % 1.4 %; Hematocrit 26.5 % (35.3-44.9); Hemoglobin 8.5 g/dL (11.5-15.4); Immature Granulocytes % 2.1 % (0-4); Lymphocytes % 21.5 %; Mean Corpuscular HGB Conc 32.1 g/dL (31.6-35.5); Mean Corpuscular Hemoglobin 29.6 pg (28.0-33.3); Mean Corpuscular Volume 92.3 fL (83.0-100.0); Mean Platelet Volume 9.8 fL (9.4-12.4); Monocytes # 0.7 K/mcL (0.0-1.3); Monocytes % 7.5 %; Neutrophils # 6.4 K/mcL (1.6-8.9); Nucleated Red Blood Cells 0.2 /100 WBC (0); Platelet Count 198 K/mcL (140-400); Red Blood Count 2.87 M/mcL (3.82-4.97); Red Cell Distribution Width 17.1 % (11.5-14.5); Segmented Neutrophils % 67.2 %
[2016-10-10 03:40] LABS: Calcium 8.7 mg/dL (8.6-10.8); Magnesium 1.4 mg/dL (1.6-2.6); Phosphorous 4.4 mg/dL (2.3-4.7); Potassium 5.1 mEq/L (3.5-4.5)
[2016-10-10] MEDS: *HR* HYDROcodone/Acet 5/325 mg TABLET PO PRN ×2 (04:21→18:54)
[2016-10-10] MEDS: Clindamycin 300 MG in D5% in Water 50 ML IVPB SCH (05:02)
[2016-10-10] MEDS: Cholecalciferol (D-3) 1,000 UNIT TABLET PO SCH (08:38)
[2016-10-10] MEDS: Aspirin 81 MG TAB.CHEW PO SCH (08:38)
[2016-10-10] MEDS: FLUoxetine HCl 10 MG CAPSULE PO SCH (08:38)
[2016-10-10] MEDS: APIXABAN 5 MG TABLET PO SCH ×2 (08:38→21:33)
[2016-10-10] MEDS: Pregabalin 75 MG CAPSULE PO SCH ×2 (08:38→21:33)
[2016-10-10] MEDS: Metoprolol XL (24 HR) Succ 50 MG TAB.ER.24H PO SCH (08:39)
[2016-10-10] MEDS: Insulin LISPRO 300 UNITS/3 ML VIAL SQ SCH ×6 (08:39→21:27)
[2016-10-10] MEDS: *HR* Amiodarone 200 MG TABLET PO SCH (08:39)
[2016-10-10] MEDS: (Febuxostat [Uloric] 80 MG) PO SCH (08:44)
[2016-10-10] MEDS: Budesonide/Formoterol 160/4.5 MDI IH SCH ×2 (08:56→22:49)
[2016-10-10] MEDS ORDERED: Spironolactone 25 MG TABLET PO SCH (09:00)
--- NOTE | 2016-10-10 09:06 | Internal Med Progress Note ---
<Luis Walter - Last Filed: 10/10/16 11:36> Date of Encounter: 10/10/16 Time of Encounter: 09:06 - Assessment and plan (1) Recurrent cellulitis of lower extremity Current Visit: Yes Status: Acute Assessment and plan: Failed outpt treatment with bactrim, multiple issue in the past, purulent noted by pt, culture showed gram negative diana, because of healthcare associated risk with multiple previous admission, will switch to vanco and aztreonam (multiple abx allergies), wait for culture sensitivity to come back. (2) Acute worsening of stage 3 chronic kidney disease Current Visit: Yes Status: Acute Assessment and plan: Likely 2/2 cardiorenal, hx of diastolic CHF, will start her on lasix IV, renally dose vanco, avoid nephrotoxic agents, recheck in AM. (3) Fluid overload Current Visit: Yes Status: Acute Assessment and plan: Hx of diastolic CHF, fluid overloaded with worsening renal function, will on start her on lasix IV, check renal function in AM. Qualifiers: Qualified Code(s): E87.70 - Fluid overload, unspecified (4) History of DVT of lower extremity Current Visit: Yes Status: Acute Assessment and plan: Con't eliquis, doppler u/s of left LE in the ER was negative for DVT. (5) DM (diabetes mellitus), type 2 Current Visit: Yes Status: Acute Assessment and plan: Hold insulin pump for now, place her on basal and bolus insulin on top of SSI. Qualifiers: Qualified Code(s): E11.9 - Type 2 diabetes mellitus without complications; Z79.4 - correction (current) use of insulin (6) Morbid obesity with BMI of 50.0-59.9, adult Current Visit: Yes Status: Acute Assessment and plan: Diet and lifestyle modifications. (7) Hypothyroidism Current Visit: Yes Status: Acute Assessment and plan: Con't synthroid. Qualifiers: Qualified Code(s): E03.9 - Hypothyroidism, unspecified (8) Hypomagnesemia Current Visit: Yes Status: Acute Assessment and plan: Supplemented, recheck in AM. (9) DVT prophylaxis Current Visit: Yes Status: Acute Assessment and plan: Eliquis. - Subjective Interval history: Pt seen and examined, left LE cellulitis has no change, still painful, erythematous, edematous. Complaints of worsening b/l LE edema. - Constitutional Vitals: Temp Pulse Resp BP Pulse Ox 98.6 F 86 18 121/68 91 L 10/10/16 06:43 10/10/16 06:43 10/10/16 08:58 10/10/16 06:43 10/10/16 08:58 General appearance: Present: cooperative, A&O X 3, morbidly obese, answers questions appropriately - Head Head exam: Present: atraumatic, normocephalic - Eye Eye exam: Present: PERRL, conjuntiva pink, sclera anicteric Pupils: Present: PERRL - Neck Neck exam general surgery: Present: supple, trachea midline. Absent: lymphadenopathy - Respiratory Respiratory exam: Present: rales (at base b/l). Absent: accessory muscle use, rhonchi, wheezes - Cardiovascular Cardiovascular exam: Present: RRR, +S1, +S2. Absent: diastolic murmur, gallop, rubs, systolic murmur - GI/Abdominal GI/Abdominal exam: Present: normal bowel sounds, soft, no peritoneal signs. Absent: distended, tenderness - Extremities Exam Extremities exam: Present: pedal edema (+2 pitting b/l), tenderness (on left LE , tender to touch, warm, slightly edematous and erythematous), warm, radial pulses palpable and symetrical. Absent: calf tenderness, cyanotic - Neurological Exam Neurological exam: Present: CN II-XII intact, oriented X3, no focal deficits. Absent: pronater drift, facial droop, speech deficit - Skin Skin exam: Present: dry, intact Internal Medicine: Result - Labs CBC & Chem 7: 10/10/16 03:10 10/10/16 03:10 Labs: Short CBC 10/10/16 Range/Units 03:10 WBC 9.5 (4.3-11.1) K/mcL Hgb 8.5 L (11.5-15.4) g/dL Hct 26.5 L (35.3-44.9) % Plt Count 198 (140-400) K/mcL Neutrophils # 6.4 (1.6-8.9) K/mcL BMP 10/10/16 03:10 Sodium 129 L Potassium 5.1 H Chloride 97 L Carbon Dioxide 20 BUN 62 H Creatinine 2.51 H Glucose 315 H Calcium 8.7 Consult Discharge Plan - Plan Referrals: Lang Jarvis DO [Primary Care Provider] - <Kvng Tidwell - Last Filed: 10/10/16 18:05> Date of Encounter: 10/10/16 - Constitutional Vitals: Temp Pulse Resp BP Pulse Ox 98.0 F 59 16 175/75 96 10/10/16 16:13 10/10/16 16:13 10/10/16 16:13 10/10/16 16:13 10/10/16 16:13 Internal Medicine: Result - Labs CBC & Chem 7: 10/10/16 03:10 10/10/16 03:10 - Attending Attestation I examined this patient and my medical decision-making was reviewed with the COMPUTER TAPE LIBRARIAN/PA/Advanced Practice Nurse/Resident Physician. I agree with the documented findings, disposition and treatment plan as described except to the extent set forth below. Mrs. Feliciano Was Seen and Examined in Rounds. She Has a Lower Extremity cellulitis and sHe Evidently Fluid Overloaded. Additionally, she Has Some Acute Kidney Injury. Likely Cardiorenal Syndrome. We Will Continue with IV Diuretics, We Will Continue with IV Antibiotics.
[2016-10-10] MEDS: Magnesium Oxide 400 MG TABLET PO SCH ×2 (11:02→21:33)
[2016-10-10] MEDS: Insulin DETEMIR 100 UNIT/ML X5UNITS SQ SCH ×2 (11:02→22:29)
[2016-10-10] MEDS: *HR* Morphine 2 MG/ML SYRINGE IVP PRN ×2 (11:06→23:49)
[2016-10-10] MEDS ORDERED: Vancomycin 1,750 MG in D5% in Water 500 ML IVPB ONE (13:00)
[2016-10-10] MEDS: Aztreonam 1,000 MG in D5% in Water (Mini-Bag+) 100 ML IVPB SCH ×2 (13:12→23:50)
[2016-10-10] MEDS: Furosemide 40 MG/4 ML VIAL IVP SCH ×2 (13:12→21:33)
--- NOTE | 2016-10-10 13:38 | Venous Imaging Report ---
LE Venous Duplex Patient Name:Ashley Feliciano Order Number:[id number] Procedure Date:10/09/2016 Date:1955ge:61 yrs Gender:Female Location:[facility] ED Room #: 16 Fur Finisher Seamstress:Jackie Dee Referring MD:Lang Jarvis DO plant taxonomy teacher:Ekta Holland, OUTSIDE SALES ACCOUNT REPRESENTATIVE Reading MD:Emory Currie MD Secondary Indications: Risk Factors Yes/No Hx of DVT Yes Anticoagulants Yes Impressions: Left lower extremity: normal superficial and deep exam. Recommendations: After imaging the patient returned to their room. Test completed on 10/09/2016 at 11:30:00 am. Critical findings reported to Dr. Julien by phone at 11:38:00 am on 10/09/2016 by Jackie Dee. Findings Venous Duplex Results: Right: Venous imaging of the lower extremity reveals full patency and normal vessel compressibility of the right common femoral. Doppler signals in the evaluated veins were normal. Left: Venous imaging of the lower extremity reveals full patency and normal vessel compressibility of the left distal iliac, left common femoral, left superficial femoral, left popliteal, left posterior tibial, left peroneal, left great saphenous and left lesser saphenous. Doppler signals in the evaluated veins were normal. Lower Extremity Venous Duplex Side Vein Compress Spontaneous Flow Augment Diameter (cm) Depth (cm) Left Distal Iliac Normal Yes Phasic Yes Left Common Femoral Normal Yes Phasic Yes Left Superficial Femoral Normal Yes Phasic Yes Left Popliteal Normal Yes Phasic Yes Left Posterior Tibial Normal Yes Phasic Yes Left Peroneal Normal Yes Phasic Yes Left Great Saphenous Normal Yes Phasic Yes Left Lesser Saphenous Normal Yes Phasic Yes Right Common Femoral Normal Yes Phasic Yes Updated by Emory Currie MD on 10/10/2016 1:31:34 PM electronically signed on 10/10/2016 1:31:48 PM with status of Final
[2016-10-10] MEDS: B12 PO SCH (16:50)
[2016-10-10] MEDS: B6 PO SCH (16:50)
[2016-10-10] MEDS: LEVOMEFOLATE CALCIUM PO SCH (16:50)
[2016-10-10] MEDS: Melatonin 3 MG TABLET PO SCH (21:33)
[2016-10-11 03:22] LABS: Basophils % 0.2 %; Eosinophils # 0.1 K/mcL (0.0-0.6); Eosinophils % 1.4 %; Hematocrit 26.7 % (35.3-44.9); Hemoglobin 8.5 g/dL (11.5-15.4); Immature Granulocytes % 3.1 % (0-4); Lymphocytes # 1.8 K/mcL (0.6-4.6); Lymphocytes % 18.5 %; Mean Corpuscular HGB Conc 31.8 g/dL (31.6-35.5); Mean Corpuscular Hemoglobin 28.8 pg (28.0-33.3); Mean Corpuscular Volume 90.5 fL (83.0-100.0); Mean Platelet Volume 9.9 fL (9.4-12.4); Monocytes % 9.8 %; Neutrophils # 6.5 K/mcL (1.6-8.9); Nucleated Red Blood Cells 0.3 /100 WBC (0); Platelet Count 229 K/mcL (140-400); Red Blood Count 2.95 M/mcL (3.82-4.97)
[2016-10-11 03:45] LABS: Calcium 9.1 mg/dL (8.6-10.8); Magnesium 1.2 mg/dL (1.6-2.6); Potassium 4.9 mEq/L (3.5-4.5)
[2016-10-11] MEDS: *HR* HYDROcodone/Acet 5/325 mg TABLET PO PRN ×2 (05:08→17:22)
[2016-10-11] MEDS: Aspirin 81 MG TAB.CHEW PO SCH (08:08)
[2016-10-11] MEDS: APIXABAN 5 MG TABLET PO SCH ×2 (08:08→22:24)
[2016-10-11] MEDS: FLUoxetine HCl 10 MG CAPSULE PO SCH (08:08)
[2016-10-11] MEDS: Cholecalciferol (D-3) 1,000 UNIT TABLET PO SCH (08:08)
[2016-10-11] MEDS: Magnesium Oxide 400 MG TABLET PO SCH ×2 (08:08→22:24)
[2016-10-11] MEDS: *HR* Amiodarone 200 MG TABLET PO SCH (08:09)
[2016-10-11] MEDS: Metoprolol XL (24 HR) Succ 50 MG TAB.ER.24H PO SCH (08:09)
[2016-10-11] MEDS: Pregabalin 75 MG CAPSULE PO SCH ×2 (08:09→22:25)
[2016-10-11] MEDS: Furosemide 40 MG/4 ML VIAL IVP SCH ×2 (08:14→22:24)
[2016-10-11] MEDS: Insulin LISPRO 300 UNITS/3 ML VIAL SQ SCH ×7 (08:17→22:30)
[2016-10-11] MEDS: Insulin DETEMIR 100 UNIT/ML X5UNITS SQ SCH (08:18)
[2016-10-11] MEDS: Budesonide/Formoterol 160/4.5 MDI IH SCH ×2 (08:27→20:25)
[2016-10-11] MEDS ORDERED: Magnesium Sulfate 2 GM in D5% in Water 100 ML IVPB ONE (08:38)
--- NOTE | 2016-10-11 08:43 | Internal Med Progress Note ---
<Luis Walter - Last Filed: 10/11/16 17:34> Date of Encounter: 10/11/16 Time of Encounter: 08:43 - Assessment and plan (1) Recurrent cellulitis of lower extremity Current Visit: Yes Status: Acute Assessment and plan: Failed outpt treatment with bactrim, multiple issue in the past, purulent noted by pt, culture showed enterobacter cloacae, pansensitive, because of healthcare associated risk with multiple previous admission, con't vanco and aztreonam ( multiple abx allergies). Worsening cellulitis, will obtain CT of left leg to r/ o deeper infection, bld culture negative x2. (2) Acute worsening of stage 3 chronic kidney disease Current Visit: Yes Status: Acute Assessment and plan: Likely 2/2 cardiorenal, hx of diastolic CHF, lasix IV made renal function better , renally dose vanco, avoid nephrotoxic agents, recheck in AM. (3) Fluid overload Current Visit: Yes Status: Acute Assessment and plan: Hx of diastolic CHF, fluid overloaded with worsening renal function, con't lasix IV, check renal function in AM. Qualifiers: Qualified Code(s): E87.70 - Fluid overload, unspecified (4) History of DVT of lower extremity Current Visit: Yes Status: Acute Assessment and plan: Con't eliquis, doppler u/s of left LE in the ER was negative for DVT. (5) DM (diabetes mellitus), type 2 Current Visit: Yes Status: Acute Assessment and plan: Hold insulin pump for now, still hyperglycemic, will increase basal and bolus insulin dosages, also on top of SSI. Qualifiers: Qualified Code(s): E11.9 - Type 2 diabetes mellitus without complications (6) Morbid obesity with BMI of 50.0-59.9, adult Current Visit: Yes Status: Acute Assessment and plan: Diet and lifestyle modifications. (7) Hypothyroidism Current Visit: Yes Status: Acute Assessment and plan: Con't synthroid. Qualifiers: Qualified Code(s): E03.9 - Hypothyroidism, unspecified (8) Hypomagnesemia Current Visit: Yes Status: Acute Assessment and plan: Supplemented, recheck in AM. (9) DVT prophylaxis Current Visit: Yes Status: Acute Assessment and plan: Eliquis. - Subjective Interval history: Pt seen and examined, left LE cellulitis is actually slightly worse, now she is complaining of pain in left calf near knee area. - Constitutional Vitals: Temp Pulse Resp BP Pulse Ox 98.0 F 63 18 122/72 98 10/11/16 06:29 10/11/16 06:29 10/11/16 08:29 10/11/16 06:29 10/11/16 08:29 General appearance: Present: cooperative, A&O X 3, morbidly obese, answers questions appropriately - Head Head exam: Present: atraumatic, normocephalic - Eye Eye exam: Present: PERRL, conjuntiva pink, sclera anicteric Pupils: Present: PERRL - Neck Neck exam general surgery: Present: supple, trachea midline. Absent: lymphadenopathy - Respiratory Respiratory exam: Present: CTAB. Absent: accessory muscle use, rales, rhonchi, wheezes - Cardiovascular Cardiovascular exam: Present: RRR, +S1, +S2. Absent: diastolic murmur, gallop, rubs, systolic murmur - GI/Abdominal GI/Abdominal exam: Present: normal bowel sounds, soft, no peritoneal signs. Absent: distended, tenderness - Extremities Exam Extremities exam: Present: pedal edema (b/l 2+ pitting), tenderness (on left LE below knee, purulent, weeping this AM, extends to back of knee and up wop ), warm, radial pulses palpable and symetrical. Absent: calf tenderness, cyanotic - Neurological Exam Neurological exam: Present: CN II-XII intact, oriented X3, no focal deficits. Absent: pronater drift, facial droop, speech deficit - Skin Skin exam: Present: dry, intact Internal Medicine: Result - Labs CBC & Chem 7: 10/11/16 03:04 10/11/16 03:04 Labs: Short CBC 10/11/16 Range/Units 03:04 WBC 9.7 (4.3-11.1) K/mcL Hgb 8.5 L (11.5-15.4) g/dL Hct 26.7 L (35.3-44.9) % Plt Count 229 (140-400) K/mcL Neutrophils # 6.5 (1.6-8.9) K/mcL BMP 10/11/16 03:04 Sodium 129 L Potassium 4.9 H Chloride 96 L Carbon Dioxide 22 BUN 55 H Creatinine 1.97 H Glucose 175 H Calcium 9.1 Consult Discharge Plan - Plan Referrals: Lang Jarvis DO [Primary Care Provider] - <Kvng Tidwell - Last Filed: 10/11/16 17:44> Date of Encounter: 10/11/16 - Constitutional Vitals: Temp Pulse Resp BP Pulse Ox 98.4 F 63 17 146/63 91 L 10/11/16 14:47 10/11/16 14:47 10/11/16 14:47 10/11/16 14:47 10/11/16 14:47 Internal Medicine: Result - Labs CBC & Chem 7: 10/11/16 03:04 10/11/16 03:04 Labs: Short CBC 10/11/16 Range/Units 03:04 WBC 9.7 (4.3-11.1) K/mcL Hgb 8.5 L (11.5-15.4) g/dL Hct 26.7 L (35.3-44.9) % Plt Count 229 (140-400) K/mcL Neutrophils # 6.5 (1.6-8.9) K/mcL BMP 10/11/16 03:04 Sodium 129 L Potassium 4.9 H Chloride 96 L Carbon Dioxide 22 BUN 55 H Creatinine 1.97 H Glucose 175 H Calcium 9.1 - Attending Attestation I examined this patient and my medical decision-making was reviewed with the LEASING ASSOCIATE/PA/Advanced Practice Nurse/Resident Physician. I agree with the documented findings, disposition and treatment plan as described except to the extent set forth below. Congestive heart failure with fluid overload and acute kidney injury. Likely cardiorenal syndrome. Kidney function improved with diuretic therapy. Additionally, left lower extremity cellulitis. Continue with both Zosyn and aztreonam. Patient has multiple medication allergies. Today the cellulitis was slightly worse, swelling was even more pronounced in the left lower extremity. I ordered a CT scan of the lower extremity for further evaluation.
[2016-10-11] MEDS: (Febuxostat [Uloric] 80 MG) PO SCH (09:46)
[2016-10-11] MEDS: *HR* Morphine 2 MG/ML SYRINGE IVP PRN ×2 (10:51→22:25)
[2016-10-11] MEDS: Aztreonam 1,000 MG in D5% in Water (Mini-Bag+) 100 ML IVPB SCH (12:41)
[2016-10-11] MEDS ORDERED: Vancomycin 1,500 MG in D5% in Water 250 ML IVPB ONE ×2 (16:00→18:00)
[2016-10-11] MEDS: B6 PO SCH (17:01)
[2016-10-11] MEDS: B12 PO SCH (17:01)
[2016-10-11] MEDS: LEVOMEFOLATE CALCIUM PO SCH (17:01)
[2016-10-11] MEDS ORDERED: Vancomycin (wt based) 1,000 MG VIAL IVPB SCH (18:00)
[2016-10-11] MEDS ORDERED: Insulin DETEMIR 100 UNIT/ML X5UNITS SQ SCH ×2 (21:00)
[2016-10-11] MEDS: Melatonin 3 MG TABLET PO SCH (22:24)
[2016-10-12] MEDS: Aztreonam 1,000 MG in D5% in Water (Mini-Bag+) 100 ML IVPB SCH ×3 (00:10→23:40)
[2016-10-12 04:54] LABS: Calcium 9.2 mg/dL (8.6-10.8); Magnesium 1.7 mg/dL (1.6-2.6); Potassium 5.7 mEq/L (3.5-4.5)
[2016-10-12] MEDS ORDERED: Insulin LISPRO 300 UNITS/3 ML VIAL SQ SCH ×2 (07:50→08:00)
[2016-10-12] MEDS: Insulin DETEMIR 100 UNIT/ML X5UNITS SQ SCH ×2 (08:52→21:47)
[2016-10-12] MEDS: Insulin LISPRO 300 UNITS/3 ML VIAL SQ SCH ×5 (08:53→17:17)
[2016-10-12] MEDS: FLUoxetine HCl 10 MG CAPSULE PO SCH (08:53)
[2016-10-12] MEDS: Furosemide 40 MG/4 ML VIAL IVP SCH ×2 (08:53→21:47)
[2016-10-12] MEDS: Cholecalciferol (D-3) 1,000 UNIT TABLET PO SCH (08:53)
[2016-10-12] MEDS: *HR* Amiodarone 200 MG TABLET PO SCH (08:53)
[2016-10-12] MEDS: Pregabalin 75 MG CAPSULE PO SCH ×2 (08:53→21:47)
[2016-10-12] MEDS: Aspirin 81 MG TAB.CHEW PO SCH (08:54)
[2016-10-12] MEDS: Metoprolol XL (24 HR) Succ 50 MG TAB.ER.24H PO SCH (08:54)
[2016-10-12] MEDS: (Febuxostat [Uloric] 80 MG) PO SCH (08:54)
[2016-10-12] MEDS: APIXABAN 5 MG TABLET PO SCH ×2 (08:54→21:47)
[2016-10-12] MEDS: Magnesium Oxide 400 MG TABLET PO SCH ×2 (08:54→21:47)
--- NOTE | 2016-10-12 09:10 | Internal Med Progress Note ---
<Kay Loja Delfino - Last Filed: 10/12/16 14:14> Date of Encounter: 10/12/16 Time of Encounter: 08:40 - Assessment and plan (1) Recurrent cellulitis of lower extremity Current Visit: Yes Status: Acute Assessment and plan: CT scan yesterday showed edema to subq tissue bilaterally, left greater than right, edison knee effusions, and no osseous abnormality. +4 pitting edema, no drng at this time. Continue Vanco and Aztreonam. Consult ID. (2) Acute worsening of stage 3 chronic kidney disease Current Visit: Yes Status: Acute Assessment and plan: Renal function continues to improve, creatinine 1.8 today, down from 1.97 yesterday. Continue IV lasix. Pharmacy to renally dose vanco, avoid nephrotoxins , continue to monitor labs in the a.m. (3) Fluid overload Current Visit: Yes Status: Acute Assessment and plan: Continue IV lasix and recheck renal function in the a.m. Qualifiers: Hypervolemia type: other Qualified Code(s): E87.79 - Other fluid overload (4) History of DVT of lower extremity Current Visit: Yes Status: Acute Assessment and plan: Continue Eliquis. BLE doppler neg for DVT on 10/09/16. (5) DM (diabetes mellitus), type 2 Current Visit: Yes Status: Chronic Assessment and plan: Glucose 530mg/dl today. Increased Levmir to 25units and sliding scale to corrective high dose. A1c 7.2% this admission. Will continue to monitor. Qualifiers: Diabetes mellitus complication status: with kidney complications Diabetes mellitus complication detail: with chronic kidney disease Diabetes mellitus termite treater helper insulin use: with mcfp use Chronic kidney disease stage: stage 3 (moderate) Qualified Code(s): E11.22 - Type 2 diabetes mellitus with diabetic chronic kidney disease; N18.3 - Chronic kidney disease, stage 3 ( moderate); Z79.4 - care home (current) use of insulin (6) Hypothyroidism Current Visit: Yes Status: Chronic Assessment and plan: TSH 1.367 in April,. Continue Levothyroxine. Qualifiers: Hypothyroidism type: unspecified Qualified Code(s): E03.9 - Hypothyroidism , unspecified (7) DVT prophylaxis Current Visit: No Status: Acute Assessment and plan: Continue Eliquis 5mg po bid. (8) Hyperkalemia Current Visit: No Status: Acute Assessment and plan: K+ 5.7 today. Kayexelate 15g po x 1 ordered. Increased insulin, as well. Continue to monitor labs, K+ ordered for later today. (9) Pressure ulcer Current Visit: Yes Status: Acute Assessment and plan: Pt has Stage II pressure ulcer to sacrum. Approx 1/2", round. No drng. Present on admission. Continue daily dressing changes per wound care protocol. Qualifiers: Pressure ulcer location: sacral region Pressure ulcer stage: stage 2 Qualified Code(s): L89.152 - Pressure ulcer of sacral region, stage 2 - Time Spent With Patient less than 15 minutes - Subjective Interval history: Pt concerned about us not letting her use her insulin pump. We discussed that we can get better control with frequent accuchecks, increasing the basal insulin and changing the correction coverage. We discussed her cellulitis and that we will continue the antibiotics and try to control her pain. She denies any further questions or concerns. - Constitutional Vitals: Temp Pulse Resp BP Pulse Ox 98.0 F 65 17 130/62 95 10/12/16 07:26 10/12/16 07:26 10/12/16 07:26 10/12/16 07:26 10/12/16 07:26 General appearance: Present: cooperative, A&O X 3, morbidly obese, pleasant, answers questions appropriately - Neck Neck exam general surgery: Present: full ROM. Absent: lymphadenopathy, tenderness - Respiratory Respiratory exam: Present: CTAB. Absent: accessory muscle use, respiratory distress, tachypnea - Cardiovascular Cardiovascular exam: Present: RRR, +S1, +S2 - GI/Abdominal GI/Abdominal exam: Present: hyperactive bowel sounds. Absent: tenderness - Extremities Exam Extremities exam: Present: pedal edema, warm - Expanded Lower Extremities Exam Lower Leg exam: Present: erythema, swelling, tenderness Gait: Present: not tested/not observed - Neurological Exam Neurological exam: Present: alert, oriented X3. Absent: speech deficit - Skin Skin exam: Present: excoriation - Other Additional findings: Stage II pressure ulcer to sacrum. Skin breakdown R buttock. Skin tear posterior labia with bleeding. Internal Medicine: Result - Labs CBC & Chem 7: 10/11/16 03:04 10/12/16 12:36 Labs: BMP 10/12/16 03:24 Sodium 125 L Potassium 5.7 H Chloride 94 L Carbon Dioxide 20 BUN 52 H Creatinine 1.80 H Glucose 530 H* Calcium 9.2 - Impressions Impressions Lower Extremity CT 10/11/16 17:32 IMPRESSION: There is inflammation of the subcutaneous fat with no definite deep involvement. D/ / Usama Posadas MD / Usama Posadas MD Interpreting Provider: Usama Posadas MD Consult Discharge Plan - Plan Referrals: Lang Jarvis DO [Primary Care Provider] - 10/16/16 11:30 am <Juhi Barraza - Last Filed: 10/12/16 15:30> Date of Encounter: 10/12/16 - Subjective Interval history: Patient seen and independently evaluated. Agree with A MINNIE Loja charting and assessment. Addition of pressure ulcer stage 2 to coccyx. Patient alert and oriented x3. Cellulitis appears to be worsening despite double coverage with Vanc and Aztreonem, will bring ID onboard. Marked hyperglycemia noted- she is usually well controlled with a recent a1c of 7.2%. Basal, sliding scale and additional meal time coverage increased. - Constitutional Vitals: Temp Pulse Resp BP Pulse Ox 97.7 F 60 15 122/39 93 L 10/12/16 11:35 10/12/16 11:35 10/12/16 11:35 10/12/16 11:35 10/12/16 11:35 Internal Medicine: Result - Labs CBC & Chem 7: 10/11/16 03:04 10/12/16 12:36 Labs: BMP 10/12/16 10/12/16 03:24 12:36 Sodium 125 L Potassium 5.7 H 5.4 H Chloride 94 L Carbon Dioxide 20 BUN 52 H Creatinine 1.80 H Glucose 530 H* Calcium 9.2 - Impressions Impressions Lower Extremity CT 10/11/16 17:32
[2016-10-12] MEDS: Budesonide/Formoterol 160/4.5 MDI IH SCH ×2 (11:04→21:43)
[2016-10-12] MEDS: *HR* HYDROcodone/Acet 5/325 mg TABLET PO PRN ×2 (12:24→23:40)
[2016-10-12] MEDS ORDERED: Vancomycin 1,500 MG in D5% in Water 250 ML IVPB SCH (17:00)
[2016-10-12] MEDS: B6 PO SCH (17:23)
[2016-10-12] MEDS: LEVOMEFOLATE CALCIUM PO SCH (17:23)
[2016-10-12] MEDS: B12 PO SCH (17:23)
[2016-10-12] MEDS: *HR* Morphine 2 MG/ML SYRINGE IVP PRN (17:31)
[2016-10-12] MEDS: Melatonin 3 MG TABLET PO SCH (21:47)
[2016-10-13 04:54] LABS: Basophils % 0.5 %; Eosinophils # 0.2 K/mcL (0.0-0.6); Eosinophils % 2.5 %; Hematocrit 23.7 % (35.3-44.9); Hemoglobin 7.7 g/dL (11.5-15.4); Immature Granulocytes % 2.8 % (0-4); Lymphocytes # 1.3 K/mcL (0.6-4.6); Lymphocytes % 19.3 %; Mean Corpuscular HGB Conc 32.5 g/dL (31.6-35.5); Mean Corpuscular Hemoglobin 29.2 pg (28.0-33.3); Mean Corpuscular Volume 89.8 fL (83.0-100.0); Mean Platelet Volume 10.2 fL (9.4-12.4); Monocytes # 0.8 K/mcL (0.0-1.3); Monocytes % 12.7 %; Neutrophils # 4.1 K/mcL (1.6-8.9); Nucleated Red Blood Cells 0.3 /100 WBC (0); Platelet Count 253 K/mcL (140-400); Red Blood Count 2.64 M/mcL (3.82-4.97); Segmented Neutrophils % 62.2 %
[2016-10-13 05:12] LABS: Calcium 9.3 mg/dL (8.6-10.8); Magnesium 1.6 mg/dL (1.6-2.6); Potassium 4.9 mEq/L (3.5-4.5)
[2016-10-13] MEDS: *HR* Morphine 2 MG/ML SYRINGE IVP PRN ×2 (06:20→14:49)
[2016-10-13] MEDS: Insulin DETEMIR 100 UNIT/ML X5UNITS SQ SCH (07:58)
[2016-10-13] MEDS: Furosemide 40 MG/4 ML VIAL IVP SCH ×2 (07:58→21:10)
[2016-10-13] MEDS: Insulin LISPRO 300 UNITS/3 ML VIAL SQ SCH ×3 (07:58→12:28)
[2016-10-13] MEDS: Aspirin 81 MG TAB.CHEW PO SCH (07:59)
[2016-10-13] MEDS: Cholecalciferol (D-3) 1,000 UNIT TABLET PO SCH (07:59)
[2016-10-13] MEDS: Metoprolol XL (24 HR) Succ 50 MG TAB.ER.24H PO SCH (07:59)
[2016-10-13] MEDS: APIXABAN 5 MG TABLET PO SCH ×2 (07:59→21:10)
[2016-10-13] MEDS: FLUoxetine HCl 10 MG CAPSULE PO SCH (07:59)
[2016-10-13] MEDS: *HR* Amiodarone 200 MG TABLET PO SCH (07:59)
[2016-10-13] MEDS: Magnesium Oxide 400 MG TABLET PO SCH ×2 (07:59→21:10)
[2016-10-13] MEDS: Pregabalin 75 MG CAPSULE PO SCH ×2 (07:59→21:10)
[2016-10-13] MEDS ORDERED: Aminoglycoside Consult 1 EACH MC ONE (08:51)
[2016-10-13] MEDS: (Febuxostat [Uloric] 80 MG) PO SCH (09:37)
[2016-10-13] MEDS: Budesonide/Formoterol 160/4.5 MDI IH SCH ×2 (11:01→20:58)
[2016-10-13] MEDS: *HR* HYDROcodone/Acet 5/325 mg TABLET PO PRN ×2 (11:11→21:10)
[2016-10-13] MEDS: Aztreonam 1,000 MG in D5% in Water (Mini-Bag+) 100 ML IVPB SCH ×2 (12:28→23:54)
--- NOTE | 2016-10-13 13:20 | Internal Med Progress Note ---
Date of Encounter: 10/13/16 Time of Encounter: 10:00 - Assessment and plan (1) Recurrent cellulitis of lower extremity Current Visit: Yes Status: Acute Assessment and plan: CT scan yesterday showed edema to subq tissue bilaterally, left greater than right, edison knee effusions, and no osseous abnormality. +4 pitting edema, no drng at this time. Continue Vanco and Aztreonam. ID on board however they are unavailable until tomorrow. We will bring wound on board. Area is not improving however it is not getting worse. Addressing her worsened anemia, uncontrolled hyperglycemia as well as mild acute kidney injury superimposed on chronic kidney disease stage III. No leukocytosis. Heart rate and blood pressure stable. Afebrile. Chronic edema consistent with venous insufficiency , appreciate wound recommendations. No signs or symptoms of sepsis. We will attempt compression stockings and monitor her response. Will trial steroids for continued inflammation. ITS Impressions Lower Extremity CT 10/11/16 17:32 IMPRESSION: There is inflammation of the subcutaneous fat with no definite deep involvement. D/ / Usama Posadas MD / Usama Posadas MD Interpreting Provider: Usaam Posadas MD (2) Cellulitis of left lower extremity Current Visit: Yes Status: Acute (3) Acute worsening of stage 3 chronic kidney disease Current Visit: Yes Status: Acute Assessment and plan: Renal function continues to improve, creatinine 1.7 today, down from 1.8 yesterday. Continue IV lasix. Pharmacy to renally dose vanco, avoid nephrotoxins, continue to monitor labs in the a.m. (4) Chronic kidney disease (CKD) Current Visit: Yes Status: Chronic Qualifiers: Chronic kidney disease stage: stage 3 (moderate) Qualified Code(s): N18.3 - Chronic kidney disease, stage 3 (moderate) (5) DVT prophylaxis Current Visit: Yes Status: Acute Assessment and plan: Eliquis. (6) History of DVT of lower extremity Current Visit: Yes Status: Acute Assessment and plan: Continue Eliquis. BLE doppler neg for DVT on 10/09/16. (7) Hyperkalemia, diminished renal excretion Current Visit: Yes Status: Acute Assessment and plan: Acute on chronic, stable, will continue to trend. Addressing worsening anemia as well as acute kidney injury superimposed on chronic kidney disease. Also addressing uncontrolled hyperglycemia (8) Hypomagnesemia Current Visit: Yes Status: Resolved (9) COPD (chronic obstructive pulmonary disease) Current Visit: Yes Status: Chronic Assessment and plan: No acute exacerbation. Qualifiers: COPD type: unspecified COPD Qualified Code(s): J44.9 - Chronic obstructive pulmonary disease, unspecified (10) Hypothyroidism Current Visit: Yes Status: Chronic Assessment and plan: TSH checked 04/14/16, normal (11) Acute and chronic respiratory failure with hypoxia Current Visit: No Status: Chronic Assessment and plan: No increased need for oxygen, continues on 2 L per nasal cannula continuously (12) Discharge planning issues Current Visit: No Status: Acute Assessment and plan: Acute on chronic. Patient states she would rather stay in the hospital until her problem is resolved. She was educated on more of a realistic timeframe today. She states that she would want to go home with hospice because this would allow her to have help 5 days a week as opposed to one or 2. She does however want to remain a full code. We will bring OT and PT and social psychologist on board. (13) Anemia of chronic disease Current Visit: No Status: Chronic Assessment and plan: Acute on chronic however trended down since the beginning of this year and she is currently lower than her norm. She is symptomatic, will transfuse 2 units packed red blood cells with furosemide (14) CAD (coronary artery disease) Current Visit: No Status: Chronic Qualifiers: Coronary Disease-Associated Artery/Lesion type: [place] artery [place] vs. transplanted heart: [place] heart Associated angina: without angina Qualified Code(s): I25.10 - Atherosclerotic heart disease of [place] coronary artery without angina pectoris (15) CHF (congestive heart failure) Current Visit: No Status: Chronic Assessment and plan: No acute exacerbation. Bilateral pitting edema noted to bilateral lower extremities, chronic for this patient. Continue furosemide. Qualifiers: Congestive heart failure type: diastolic Congestive heart failure chronicity: unspecified congestive heart failure chronicity Qualified Code(s) : I50.30 - Unspecified diastolic (congestive) heart failure (16) Diabetes mellitus type 2 with complications Current Visit: No Status: Chronic Assessment and plan: Relatively well-controlled at home with an A1c of 7.2%. Has been very poorly controlled since admission. Basal dosages as well as sliding scale with meals have both been increased, will increase again. Glucose slowly trending down. Qualifiers: Diabetes mellitus terminal gauger supervisor insulin use: with terminal gauger supervisor use Qualified Code( s): E11.8 - Type 2 diabetes mellitus with unspecified complications; Z79.4 - [facility] (current) use of insulin (17) History of allergy to multiple drugs Current Visit: No Status: Chronic Assessment and plan: Tolerating vancomycin and aztreonam well (18) Hypertension Current Visit: No Status: Chronic Assessment and plan: Controlled, we will continue to trend and adjust medications as indicated Qualifiers: Hypertension type: essential hypertension Qualified Code(s): I10 - Essential (primary) hypertension (19) OLIVER (obstructive sleep apnea) Current Visit: No Status: Chronic Assessment and plan: noncompliant with CPAP (20) PAD (peripheral artery disease) Current Visit: No Status: Chronic (21) Paroxysmal a-fib Current Visit: No Status: Chronic Assessment and plan: Rate controlled, on Eliquis (22) Morbid obesity with BMI of 50.0-59.9, adult Current Visit: Yes Status: Chronic Assessment and plan: Diet and lifestyle modifications. - Subjective Interval history: Patient seen and examined. On examination, patient is sitting upright in bed watching television. Patient stating the pain to her left lower extremity is about the same as it has been the last couple days. She states she feels the redness is about the same but she also states that there has been increased drainage to the medial aspect of her left lower leg. Patient stating she would like to stay in the hospital until she starts to feel better. - Constitutional Vitals: Temp Pulse Resp BP Pulse Ox 97.9 F 57 16 107/32 94 L 10/13/16 11:46 10/13/16 11:46 10/13/16 11:46 10/13/16 11:46 10/13/16 11:46 General appearance: Present: cooperative, A&O X 3, morbidly obese, pleasant, no acute distress, answers questions appropriately - Head Head exam: Present: atraumatic, normocephalic - Eye Eye exam: Present: PERRL, conjuntiva pink, sclera anicteric Pupils: Present: PERRL - Neck Neck exam general surgery: Present: supple, trachea midline. Absent: lymphadenopathy - Respiratory Respiratory exam: Present: decreased breath sounds. Absent: accessory muscle use, rales, respiratory distress, rhonchi, wheezes - Cardiovascular Cardiovascular exam: Present: RRR, +S1, +S2. Absent: diastolic murmur, gallop, rubs, systolic murmur - GI/Abdominal GI/Abdominal exam: Present: distended, normal bowel sounds, soft, no peritoneal signs. Absent: tenderness - Extremities Exam Extremities exam: Present: pedal edema, warm, radial pulses palpable and symetrical. Absent: calf tenderness, cyanotic - Expanded Lower Extremities Exam Lower Leg exam: Present: erythema, swelling, tenderness Ankle exam: Present: erythema, swelling, tenderness Foot/Toe exam: Present: erythema, swelling, tenderness Neuro vascular tendon exam: Present: no vascular compromise - Neurological Exam Neurological exam: Present: alert, CN II-XII intact, oriented X3, no focal deficits, strengths equal and symetr throughout. Absent: pronater drift, facial droop, speech deficit - Skin Skin exam: Present: dry, intact, normal color, warm Internal Medicine: Result - Labs CBC & Chem 7: 10/13/16 03:57 10/13/16 03:57 Labs: Short CBC 10/13/16 Range/Units 03:57 WBC 6.5 (4.3-11.1) K/mcL Hgb 7.7 L (11.5-15.4) g/dL Hct 23.7 L (35.3-44.9) % Plt Count 253 (140-400) K/mcL Neutrophils # 4.1 (1.6-8.9) K/mcL BMP 10/13/16 03:57 Sodium 128 L Potassium 4.9 H Chloride 94 L Carbon Dioxide 25 BUN 48 H Creatinine 1.70 H Glucose 401 H Calcium 9.3 Consult Discharge Plan - Plan Referrals: Lang Jarvis DO [Primary Care Provider] - 10/16/16 11:30 am
[2016-10-13] MEDS ORDERED: Furosemide 20 MG/2 ML VIAL IVP ONE (13:42)
[2016-10-13] MEDS ORDERED: *HR* Dextrose 50 % in Water (Syg) 50 ML SYRINGE IVP PRN (14:04)
[2016-10-13] MEDS: Insulin Human Regular 100 UNIT in 0.9 % Sodium Chloride 100 ML IVC SCH ×3 (16:10→23:03)
[2016-10-13] MEDS ORDERED: 0.9 % Sodium Chloride 250 ML ONE ×2 (16:32→20:15)
[2016-10-13] MEDS ORDERED: Vancomycin 1,000 MG in D5% in Water 250 ML IVPB SCH (18:00)
[2016-10-13] MEDS: LEVOMEFOLATE CALCIUM PO SCH (18:25)
[2016-10-13] MEDS: B12 PO SCH (18:25)
[2016-10-13] MEDS: MethylPREDNISolone 40 MG/ML VIAL IVP SCH (18:25)
[2016-10-13] MEDS: B6 PO SCH (18:25)
[2016-10-13] MEDS: Albuterol 2.5 MG/3 ML NEBULIZER IH PRN (20:58)
[2016-10-13] MEDS: Melatonin 3 MG TABLET PO SCH (21:10)
[2016-10-14] MEDS: Insulin Human Regular 100 UNIT in 0.9 % Sodium Chloride 100 ML IVC SCH ×2 (04:10→09:49)
[2016-10-14] MEDS: MethylPREDNISolone 40 MG/ML VIAL IVP SCH (05:38)
[2016-10-14 06:11] LABS: Basophils % 0.3 %; Eosinophils % 0.5 %; Hematocrit 28.5 % (35.3-44.9); Lymphocytes # 0.6 K/mcL (0.6-4.6); Lymphocytes % 9.4 %; Mean Corpuscular HGB Conc 32.6 g/dL (31.6-35.5); Mean Corpuscular Hemoglobin 29.3 pg (28.0-33.3); Mean Corpuscular Volume 89.9 fL (83.0-100.0); Mean Platelet Volume 10.1 fL (9.4-12.4); Monocytes # 0.2 K/mcL (0.0-1.3); Monocytes % 3.5 %; Neutrophils # 5.2 K/mcL (1.6-8.9); Platelet Count 258 K/mcL (140-400); Red Blood Count 3.17 M/mcL (3.82-4.97); Red Cell Distribution Width 16.3 % (11.5-14.5); Segmented Neutrophils % 82.3 %
[2016-10-14 06:13] LABS: Hemoglobin 9.3 g/dL (11.5-15.4)
[2016-10-14 06:23] LABS: Calcium 9.6 mg/dL (8.6-10.8); Potassium 5.4 mEq/L (3.5-4.5)
[2016-10-14] MEDS: Budesonide/Formoterol 160/4.5 MDI IH SCH ×2 (08:01→20:58)
[2016-10-14] MEDS: Albuterol 2.5 MG/3 ML NEBULIZER IH PRN ×2 (08:04→20:58)
[2016-10-14] MEDS ORDERED: predniSONE 20 MG TABLET PO SCH (09:00)
[2016-10-14] MEDS ORDERED: Sulfamethoxazole/Trimeth SS 1 TAB PO SCH (09:00)
[2016-10-14] MEDS: APIXABAN 5 MG TABLET PO SCH ×2 (09:24→20:52)
[2016-10-14] MEDS: FLUoxetine HCl 10 MG CAPSULE PO SCH (09:24)
[2016-10-14] MEDS: Aspirin 81 MG TAB.CHEW PO SCH (09:24)
[2016-10-14] MEDS: Pregabalin 75 MG CAPSULE PO SCH ×2 (09:25→20:55)
[2016-10-14] MEDS: Cholecalciferol (D-3) 1,000 UNIT TABLET PO SCH (09:25)
[2016-10-14] MEDS: Metoprolol XL (24 HR) Succ 50 MG TAB.ER.24H PO SCH (09:25)
[2016-10-14] MEDS: *HR* Amiodarone 200 MG TABLET PO SCH (09:25)
[2016-10-14] MEDS: Magnesium Oxide 400 MG TABLET PO SCH ×2 (09:25→20:52)
[2016-10-14] MEDS: (Febuxostat [Uloric] 80 MG) PO SCH (09:32)
[2016-10-14] MEDS ORDERED: Insulin DETEMIR 100 UNIT/ML X5UNITS SQ ONE (10:30)
[2016-10-14] MEDS: Miconazole 2% ointment 114 GM TUBE TP SCH (11:40)
[2016-10-14] MEDS ORDERED: D5% in Water 1,000 ML IV PRN (13:14)
[2016-10-14] MEDS ORDERED: *HR* Dextrose 50 % in Water (Syg) 50 ML SYRINGE IVP PRN (13:14)
[2016-10-14] MEDS ORDERED: Dextrose Gel 15 GM PO PRN (13:14)
[2016-10-14] MEDS: Insulin LISPRO 300 UNITS/3 ML VIAL SQ SCH ×3 (13:31→21:36)
--- NOTE | 2016-10-14 15:57 | Internal Med Progress Note ---
Date of Encounter: 10/14/16 Time of Encounter: 10:10 - Assessment and plan (1) Acute kidney injury superimposed on chronic kidney disease Current Visit: Yes Status: Resolved Assessment and plan: CR back to baseline, check chem a.m (2) Cellulitis of left lower extremity Current Visit: Yes Status: Acute Assessment and plan: D/C avnco and Aztreonam Blood culture is negative Wound culture is with E.cloacae rosario-sensitive, patient is allergic to all medications except bactrim Will start Bactrim DS bid, expect clinical improvement Anticipate d/c a.m (3) History of DVT of lower extremity Current Visit: Yes Status: Acute Assessment and plan: Continue Eliquis. BLE doppler neg for DVT on 10/09/16. (4) Hyperglycemia due to type 2 diabetes mellitus Current Visit: Yes Status: Acute Assessment and plan: Secondary to highg doses of steroids D/C solumedrol Change to prednsione po Bridge with levemir, continue prandial insulin and sliding scale Qualifiers: Diabetes mellitus fdc insulin use: unspecified fdc insulin use status Qualified Code(s): E11.65 - Type 2 diabetes mellitus with hyperglycemia (5) Hyperkalemia Current Visit: Yes Status: Acute Assessment and plan: Kayexalate Recheck am (6) Atrial fibrillation Current Visit: Yes Status: Chronic Qualifiers: Atrial fibrillation type: chronic Qualified Code(s): I48.2 - Chronic atrial fibrillation (7) CHF (congestive heart failure) Current Visit: Yes Status: Chronic Assessment and plan: Chronic, stable, continue medications Qualifiers: Congestive heart failure type: diastolic Congestive heart failure chronicity: chronic Qualified Code(s): I50.32 - Chronic diastolic (congestive ) heart failure (8) COPD (chronic obstructive pulmonary disease) Current Visit: Yes Status: Chronic Assessment and plan: No acute exacerbation. Qualifiers: COPD type: unspecified COPD Qualified Code(s): J44.9 - Chronic obstructive pulmonary disease, unspecified (9) DM (diabetes mellitus), type 2 Current Visit: Yes Status: Chronic Assessment and plan: A1C 7.6 Mgt as in hyperglycemia Qualifiers: Diabetes mellitus complication status: with kidney complications Diabetes mellitus complication detail: with chronic kidney disease Diabetes mellitus fdc insulin use: with trans router use Chronic kidney disease stage: stage 3 (moderate) Qualified Code(s): E11.22 - Type 2 diabetes mellitus with diabetic chronic kidney disease; N18.3 - Chronic kidney disease, stage 3 ( moderate); Z79.4 - [facility] (current) use of insulin (10) Hypothyroidism Current Visit: Yes Status: Chronic Assessment and plan: TSH 1.367 in April,. Continue Levothyroxine. Qualifiers: Hypothyroidism type: unspecified Qualified Code(s): E03.9 - Hypothyroidism , unspecified (11) Morbid obesity with BMI of 50.0-59.9, adult Current Visit: Yes Status: Chronic (12) OLIVER (obstructive sleep apnea) Current Visit: Yes Status: Chronic (13) Hypomagnesemia Current Visit: Yes Status: Resolved Assessment and plan: Supplemented, stable. (14) Discharge planning issues Current Visit: No Status: Acute Assessment and plan: Acute on chronic. For d/c with [facility]ENSON on board - Subjective Interval history: 61 Y/O F She is being managed for LLE cellulitis She also has diagnoses of ANGÉLICA on CKD, Hypomagnessemia, DVT of LE, Hypothyroidism , Anemia of chronic disease, CAD, DM2, Diastolic CHF, PAD, OLIVER, Afib She is seen at bedside this morning, reporting she feels much better and was able to sit out of bed to chair She had been started on insulin drip yesterday due to uncontrolled FS She is supposedly on RU500 insulin pump at home with adequate control Will bridge with long acting insulin Antibiotics and wound culture result reviewed, will d/c current antibiotics and change to DS po Bactrim based on wound culture reports and patient's verbal report of clinical improvement KELLEY is on board regarding discharge disposition-Patient is from [facility] but wants to remain Full code, She will be discharged to home health and enrolled in home hospice as outpatient. I anticipate she will continue to make clinical improvement and will discharge in the morning if patient tolerates Bactrim and FS is acceptable - Constitutional Vitals: Temp Pulse Resp BP Pulse Ox 97.7 F 61 14 144/44 96 10/14/16 14:36 10/14/16 14:36 10/14/16 14:36 10/14/16 14:36 10/14/16 14:36 General appearance: Present: cooperative, A&O X 3, morbidly obese, pleasant, no acute distress, answers questions appropriately - Head Head exam: Present: atraumatic, normocephalic - Eye Eye exam: Present: PERRL, conjuntiva pink, sclera anicteric Pupils: Present: PERRL - Neck Neck exam general surgery: Present: supple, trachea midline. Absent: lymphadenopathy - Respiratory Respiratory exam: Present: CTAB. Absent: accessory muscle use, rales, rhonchi, wheezes - Cardiovascular Cardiovascular exam: Present: RRR, +S1, +S2. Absent: diastolic murmur, gallop, rubs, systolic murmur - GI/Abdominal GI/Abdominal exam: Present: normal bowel sounds, soft, no peritoneal signs. Absent: distended, tenderness - Extremities Exam Additional comments: BIlateral chronic venous congestion dermatitis, bilaterla piting pedal edema up tot he magana LLE with slight reddening, healed scab, not draining any discharge, not tender, no calf tenderness, - Neurological Exam Neurological exam: Present: CN II-XII intact, oriented X3, no focal deficits. Absent: pronater drift, facial droop, speech deficit - Skin Skin exam: Present: dry Internal Medicine: Result - Labs CBC & Chem 7: 10/14/16 04:46 10/14/16 04:46 Labs: Short CBC 10/14/16 Range/Units 04:46 WBC 6.3 (4.3-11.1) K/mcL Hgb 9.3 L D (11.5-15.4) g/dL Hct 28.5 L (35.3-44.9) % Plt Count 258 (140-400) K/mcL Neutrophils # 5.2 (1.6-8.9) K/mcL BMP 10/14/16 04:46 Sodium 130 L Potassium 5.4 H Chloride 96 L Carbon Dioxide 24 BUN 45 H Creatinine 1.32 H Glucose 208 H Calcium 9.6 Consult Discharge Plan - Plan Referrals: Lang Jarvis DO [Primary Care Provider] - 10/16/16 11:30 am
[2016-10-14] MEDS ORDERED: Insulin LISPRO 300 UNITS/3 ML VIAL SQ SCH ×2 (16:30→21:00)
[2016-10-14] MEDS: Furosemide 40 MG TABLET PO SCH (16:33)
[2016-10-14] MEDS: *HR* HYDROcodone/Acet 5/325 mg TABLET PO PRN (18:42)
[2016-10-14] MEDS: LEVOMEFOLATE CALCIUM PO SCH (18:48)
[2016-10-14] MEDS: B6 PO SCH (18:48)
[2016-10-14] MEDS: B12 PO SCH (18:48)
[2016-10-14] MEDS: Sulfamethoxazole/Trimeth DS 1 EACH TABLET PO SCH (20:51)
[2016-10-14] MEDS: Melatonin 3 MG TABLET PO SCH (20:51)
[2016-10-14] MEDS ORDERED: Insulin DETEMIR 100 UNIT/ML X5UNITS SQ SCH (21:00)
[2016-10-14] MEDS: Nystatin POWDER 30 GM BOTTLE TP SCH (21:36)
[2016-10-15] MEDS: *HR* HYDROcodone/Acet 5/325 mg TABLET PO PRN ×2 (02:46→15:16)
[2016-10-15 04:45] LABS: Basophils % 0.1 %; Hematocrit 30.5 % (35.3-44.9); Hemoglobin 9.5 g/dL (11.5-15.4); Immature Granulocytes % 1.7 % (0-4); Lymphocytes # 0.6 K/mcL (0.6-4.6); Lymphocytes % 6.8 %; Mean Corpuscular HGB Conc 31.1 g/dL (31.6-35.5); Mean Corpuscular Hemoglobin 28.6 pg (28.0-33.3); Mean Corpuscular Volume 91.9 fL (83.0-100.0); Mean Platelet Volume 10.1 fL (9.4-12.4); Monocytes # 0.7 K/mcL (0.0-1.3); Monocytes % 8.3 %; Neutrophils # 6.7 K/mcL (1.6-8.9); Nucleated Red Blood Cells 0.2 /100 WBC (0); Platelet Count 317 K/mcL (140-400); Red Blood Count 3.32 M/mcL (3.82-4.97); Segmented Neutrophils % 83.1 %
[2016-10-15 05:01] LABS: Calcium 9.7 mg/dL (8.6-10.8); Potassium 5.7 mEq/L (3.5-4.5)
[2016-10-15] MEDS ORDERED: Insulin LISPRO 300 UNITS/3 ML VIAL SQ ONE ×2 (05:20→06:58)
[2016-10-15] MEDS ORDERED: Insulin Human Regular 10 UNIT in 0.9 % Sodium Chloride 10 ML IV ONE (07:32)
[2016-10-15] MEDS: Budesonide/Formoterol 160/4.5 MDI IH SCH ×2 (08:07→20:33)
[2016-10-15] MEDS: Albuterol 2.5 MG/3 ML NEBULIZER IH SCH (08:07)
[2016-10-15] MEDS: Furosemide 40 MG TABLET PO SCH ×2 (08:44→16:01)
[2016-10-15] MEDS: Aspirin 81 MG TAB.CHEW PO SCH (08:44)
[2016-10-15] MEDS: Sulfamethoxazole/Trimeth DS 1 EACH TABLET PO SCH (08:45)
[2016-10-15] MEDS: *HR* Amiodarone 200 MG TABLET PO SCH (08:46)
[2016-10-15] MEDS: APIXABAN 5 MG TABLET PO SCH ×2 (08:46→20:39)
[2016-10-15] MEDS: Metoprolol XL (24 HR) Succ 50 MG TAB.ER.24H PO SCH (08:47)
[2016-10-15] MEDS: Insulin DETEMIR 100 UNIT/ML X5UNITS SQ SCH ×2 (08:47→20:38)
[2016-10-15] MEDS: predniSONE 20 MG TABLET PO SCH (08:47)
[2016-10-15] MEDS: FLUoxetine HCl 10 MG CAPSULE PO SCH (08:47)
[2016-10-15] MEDS: Pregabalin 75 MG CAPSULE PO SCH ×2 (08:47→20:39)
[2016-10-15] MEDS: Insulin LISPRO 300 UNITS/3 ML VIAL SQ SCH ×7 (08:48→20:38)
[2016-10-15] MEDS: Cholecalciferol (D-3) 1,000 UNIT TABLET PO SCH (08:48)
[2016-10-15] MEDS ORDERED: cloNIDine HCl 0.1 MG TABLET PO SCH (09:00)
[2016-10-15] MEDS: Miconazole 2% ointment 114 GM TUBE TP SCH ×2 (09:00→22:46)
[2016-10-15] MEDS: Nystatin POWDER 30 GM BOTTLE TP SCH ×3 (09:00→20:39)
[2016-10-15] MEDS: amLODIPine 5 MG TABLET PO SCH (11:13)
--- NOTE | 2016-10-15 15:52 | Internal Med Progress Note ---
Date of Encounter: 10/15/16 Time of Encounter: 09:15 - Assessment and plan (1) Acute kidney injury superimposed on chronic kidney disease Current Visit: Yes Status: Resolved Assessment and plan: CR back to baseline (2) Cellulitis of left lower extremity Current Visit: Yes Status: Acute Assessment and plan: D/C avnco and Aztreonam Blood culture is negative Wound culture is with E.cloacae rosario-sensitive, patient is allergic to all medications except bactrim Today , will resume patient's own insulin pump wit RU500 for glucose control Will hold Valsartan and Spirinolactone Will start on amlodipine and Lisinopril Will monitor closely Bactrim will be discontinued due to new rash and hyperkalemia She has received IV Aztreonam and Vancomycin for 4 days, and 2 days of BActrim, will hold antibiotics for now Plan of care discussed with patient, verbalizes understanding Discharge will be held for now (3) History of DVT of lower extremity Current Visit: Yes Status: Acute Assessment and plan: Continue Eliquis. BLE doppler neg for DVT on 10/09/16. (4) Hyperglycemia due to type 2 diabetes mellitus Current Visit: Yes Status: Acute Assessment and plan: Secondary to high doses of steroids D/C solumedrol Change to prednsione po Resume home insulin pump Qualifiers: Diabetes mellitus assistant terminal manager insulin use: unspecified assistant terminal manager insulin use status Qualified Code(s): E11.65 - Type 2 diabetes mellitus with hyperglycemia (5) Hyperkalemia Current Visit: Yes Status: Acute Assessment and plan: Kayexalate/Insulin/Albuterol nebs Recheck am (6) Atrial fibrillation Current Visit: Yes Status: Chronic Qualifiers: Atrial fibrillation type: chronic Qualified Code(s): I48.2 - Chronic atrial fibrillation (7) CHF (congestive heart failure) Current Visit: Yes Status: Chronic Assessment and plan: Chronic, stable, continue medications Qualifiers: Congestive heart failure type: diastolic Congestive heart failure chronicity: chronic Qualified Code(s): I50.32 - Chronic diastolic (congestive ) heart failure (8) COPD (chronic obstructive pulmonary disease) Current Visit: Yes Status: Chronic Assessment and plan: No acute exacerbation. Qualifiers: COPD type: unspecified COPD Qualified Code(s): J44.9 - Chronic obstructive pulmonary disease, unspecified (9) DM (diabetes mellitus), type 2 Current Visit: Yes Status: Chronic Assessment and plan: A1C 7.6 Mgt as in hyperglycemia Qualifiers: Diabetes mellitus complication status: with kidney complications Diabetes mellitus complication detail: with chronic kidney disease Diabetes mellitus snf insulin use: with assistant terminal manager use Chronic kidney disease stage: stage 3 (moderate) Qualified Code(s): E11.22 - Type 2 diabetes mellitus with diabetic chronic kidney disease; N18.3 - Chronic kidney disease, stage 3 ( moderate); Z79.4 - care home (current) use of insulin (10) Hypothyroidism Current Visit: Yes Status: Chronic Assessment and plan: TSH 1.367 in April,. Continue Levothyroxine. Qualifiers: Hypothyroidism type: unspecified Qualified Code(s): E03.9 - Hypothyroidism , unspecified (11) Morbid obesity with BMI of 50.0-59.9, adult Current Visit: Yes Status: Chronic (12) OLIVER (obstructive sleep apnea) Current Visit: Yes Status: Chronic (13) Hypomagnesemia Current Visit: Yes Status: Resolved Assessment and plan: Supplemented, stable. (14) Discharge planning issues Current Visit: No Status: Acute Assessment and plan: Acute on chronic. For d/c with home health guera BENSON on board - Subjective Interval history: 61 Y/O F She is being managed for LLE cellulitis She also has diagnoses of ANGÉLICA on CKD, Hypomagnessemia, DVT of LE, Hypothyroidism , Anemia of chronic disease, CAD, DM2, Diastolic CHF, PAD, OLIVER, Afib She is seen at bedside this morning, reporting she feels much better and was able to sit out of bed to chair Her FS again have become uncontrolled Hyperkalemia is also worsened, BP also uptrending She was started on Bactrim DS yesterday for LLE cellulitis based on culture report and her multiple allergies This morning , I noed a diffuse rash on her face and chest wall, no angioedema, no tongue swelling Today , will resume patient's own insulin pump wit RU500 for glucose control Will hold Valsartan and Spirinolactone Will start on amlodipine and Lisinopril Will monitor closely Bactrim will be discontinued due to new rash and hyperkalemia She has received IV Aztreonam and Vancomycin for 4 days, and 2 days of BActrim, will hold antibiotics for now Plan of care discussed with patient, verbalizes understanding Discharge will be held for now - Constitutional Vitals: Temp Pulse Resp BP Pulse Ox 97.6 F 53 16 167/71 96 10/15/16 15:30 10/15/16 15:30 10/15/16 15:30 10/15/16 15:30 10/15/16 15:30 General appearance: Present: cooperative, A&O X 3, morbidly obese, pleasant, no acute distress, answers questions appropriately - Head Head exam: Present: atraumatic, normocephalic - Eye Eye exam: Present: PERRL, conjuntiva pink, sclera anicteric Pupils: Present: PERRL - ENT ENT exam: Present: mucous membranes moist - Neck Neck exam general surgery: Present: normal inspection - Respiratory Respiratory exam: Present: CTAB - Cardiovascular Cardiovascular exam: Present: RRR, +S1, +S2. Absent: diastolic murmur, gallop, rubs, systolic murmur - GI/Abdominal GI/Abdominal exam: Present: normal bowel sounds, soft, no peritoneal signs. Absent: distended, tenderness - Extremities Exam Additional comments: BIlateral pedal edema, pitting Chronic venous stasis changes LLE is not changed from prior exam, minimal redness , no discharge from scab, not tender - Neurological Exam Neurological exam: Present: CN II-XII intact, oriented X3, no focal deficits. Absent: pronater drift, facial droop, speech deficit - Skin Skin exam: Present: dry, rash (New facial rash) Internal Medicine: Result - Labs CBC & Chem 7: 10/15/16 04:07 10/15/16 13:46 Labs: Short CBC 10/15/16 Range/Units 04:07 WBC 8.1 (4.3-11.1) K/mcL Hgb 9.5 L (11.5-15.4) g/dL Hct 30.5 L (35.3-44.9) % Plt Count 317 (140-400) K/mcL Neutrophils # 6.7 (1.6-8.9) K/mcL BMP 10/15/16 10/15/16 04:07 13:46 Sodium 130 L Potassium 5.7 H 4.8 H Chloride 93 L Carbon Dioxide 28 BUN 43 H Creatinine 1.54 H Glucose 543 H* Calcium 9.7 Consult Discharge Plan - Plan Referrals: Lang Jarvis DO [Primary Care Provider] - 10/16/16 11:30 am
[2016-10-15] MEDS: Lisinopril 20 MG TABLET PO SCH (16:01)
[2016-10-15] MEDS: Albuterol 2.5 MG/3 ML NEBULIZER IH PRN (20:33)
[2016-10-15] MEDS: Melatonin 3 MG TABLET PO SCH (20:39)
[2016-10-16] MEDS ORDERED: NIFEdipine XL (24 HR) 60 MG TAB.ER.24 PO ONE (00:25)
[2016-10-16] MEDS: Insulin LISPRO 300 UNITS/3 ML VIAL SQ SCH ×4 (07:25→12:05)
[2016-10-16] MEDS: Budesonide/Formoterol 160/4.5 MDI IH SCH (08:03)
[2016-10-16] MEDS: Albuterol 2.5 MG/3 ML NEBULIZER IH SCH (08:03)
[2016-10-16] MEDS: predniSONE 20 MG TABLET PO SCH (09:05)
[2016-10-16] MEDS: *HR* Amiodarone 200 MG TABLET PO SCH (09:05)
[2016-10-16] MEDS: Pregabalin 75 MG CAPSULE PO SCH (09:05)
[2016-10-16] MEDS: Aspirin 81 MG TAB.CHEW PO SCH (09:05)
[2016-10-16] MEDS: amLODIPine 5 MG TABLET PO SCH (09:05)
[2016-10-16] MEDS: Metoprolol XL (24 HR) Succ 50 MG TAB.ER.24H PO SCH (09:05)
[2016-10-16] MEDS: Lisinopril 20 MG TABLET PO SCH (09:05)
[2016-10-16] MEDS: APIXABAN 5 MG TABLET PO SCH (09:06)
[2016-10-16] MEDS: Cholecalciferol (D-3) 1,000 UNIT TABLET PO SCH (09:06)
[2016-10-16] MEDS: Furosemide 40 MG TABLET PO SCH (09:06)
[2016-10-16] MEDS: Nystatin POWDER 30 GM BOTTLE TP SCH ×2 (09:09→14:37)
[2016-10-16] MEDS: Insulin DETEMIR 100 UNIT/ML X5UNITS SQ SCH (09:10)
[2016-10-16] MEDS: FLUoxetine HCl 10 MG CAPSULE PO SCH (09:15)
[2016-10-16 09:26] LABS: BUN/Creatinine Ratio 33 (6-26); Blood Urea Nitrogen 35 mg/dL (7-20); Calcium 10.1 mg/dL (8.6-10.8); Carbon Dioxide 32 mEq/L (19-29); Chloride 96 mEq/L (98-109); Glucose 99 mg/dL (70-99); Osmolality,Calculated 292 (280-300); Potassium 4.1 mEq/L (3.5-4.5); eGFR For African Americans > 60 (> 60); eGFR For Non-African Americans 53 (> 60)
[2016-10-16 09:27] LABS: Sodium 137 mEq/L (136-145)
[2016-10-16] MEDS: Miconazole 2% ointment 114 GM TUBE TP SCH (10:57)
[2016-10-16 11:22] VITALS: BP 125/68
--- NOTE | 2016-10-16 13:38 | Physician Discharge Referral ---
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 - Diagnosis (1) Acute kidney injury superimposed on chronic kidney disease Priority: Primary Status: Resolved (2) Cellulitis of left lower extremity Priority: Primary Status: Acute (3) History of DVT of lower extremity Priority: Secondary Status: Chronic (4) Hyperglycemia due to type 2 diabetes mellitus Priority: Secondary Status: Resolved (5) Hyperkalemia Priority: Secondary Status: Resolved (6) Atrial fibrillation Priority: Secondary Status: Chronic (7) CHF (congestive heart failure) Priority: Secondary Status: Chronic (8) COPD (chronic obstructive pulmonary disease) Priority: Secondary Status: Chronic (9) DM (diabetes mellitus), type 2 Priority: Secondary Status: Chronic (10) Hypothyroidism Priority: Secondary Status: Chronic (11) Morbid obesity with BMI of 50.0-59.9, adult Priority: Secondary Status: Chronic (12) OLIVER (obstructive sleep apnea) Priority: Secondary Status: Chronic (13) Hypomagnesemia Priority: Secondary Status: Resolved (14) Discharge planning issues Priority: Primary Status: Acute - Respiratory Orders Smoking Cessation: Smoking cessation has been advised. For more information, call the [place] Tobacco Quit Line at 2-355-RIXQ-NOW. - Transfer Medications Prescriptions: Amlodipine [Norvasc] 10 mg PO DAILY #30 tablet Furosemide [Lasix] 40 mg PO BIDDIURETIC #60 tablet Lisinopril [Zestril] 40 mg PO DAILY #30 tablet Miconazole 2% ointment [[place] Antifungal Ointment] 1 appl TP DAILY #2 tube Nystatin POWDER [Nystop] 1 appl TP TID #2 bottle PredniSONE 20 mg PO DAILY #10 tablet Home Medications: Albuterol Neb [Proventil Neb] 2.5 mg IH Q6H PRN 02/07/16 [History] Albuterol Sulfate [Proventil Hfa] 2 puff IH Q4H PRN 02/07/16 [History] FLUoxetine HCl [Prozac] 10 mg PO QAM 02/07/16 [History] Insulin Regular U-500 [HumuLIN R U-500] 0 unit .ROUTE PRN PRN 02/07/16 [History ] Pregabalin [Lyrica] 75 mg PO BID 02/07/16 [History] Melatonin 10 mg PO HS #30 capsule 02/11/16 [Rx] B12/Levomefolate Calcium/B-6 [Foltx Tablet] 1 tab PO QPM 02/29/16 [History] Budesonide/Formoterol 160/4.5 [Symbicort 160/4.5] 2 puff IH BIDR 30 Days [Rx] Montelukast [Singulair] 10 mg PO HS 30 Days 03/03/16 [Rx] Aspirin 81 mg PO QAM 03/27/16 [History] Cholecalciferol (Vitamin D3) [Dialyvite Vitamin D] 5,000 unit PO QAM 03/27/16 [ History] Omeprazole 40 mg PO QPM 03/27/16 [History] Amiodarone [Cordarone] 200 mg PO DAILY #30 tablet 04/11/16 [Rx] Acetaminophen [Tylenol] 500 mg PO Q6HR PRN 06/12/16 [History] Oxygen 2 l NS AD 06/12/16 [History] Apixaban [Eliquis] 5 mg PO BID 28 Days 08/07/16 [Rx] Febuxostat [Uloric] 80 mg PO DAILY 09/10/16 [History] Levothyroxine [Synthroid] 75 mcg PO DAILY 09/10/16 [History] HYDROcodone/Acet 5/325 mg [[place] 5-325 mg] 1 tab PO Q8H PRN 10/09/16 [History] Amlodipine [Norvasc] 10 mg PO DAILY #30 tablet 10/16/16 [Rx] Furosemide [Lasix] 40 mg PO BIDDIURETIC #60 tablet 10/16/16 [Rx] Lisinopril [Zestril] 40 mg PO DAILY #30 tablet 10/16/16 [Rx] Metoprolol XL (24 HR) Succ [Toprol Xl] 50 mg PO QAM #0 10/16/16 [Rx] Miconazole 2% ointment [[place] Antifungal Ointment] 1 appl TP DAILY #2 tube 10/16/16 [Rx] Nystatin POWDER [Nystop] 1 appl TP TID #2 bottle 10/16/16 [Rx] PredniSONE 20 mg PO DAILY #10 tablet 10/16/16 [Rx] Allergies/Adverse Reactions: Allergies ciprofloxacin [From Cipro] Allergy (Severe, Verified 08/05/16 14:01) Anaphylaxis clarithromycin [From Biaxin] Allergy (Severe, Verified 09/10/16 20:30) Hives clonidine Allergy (Severe, Verified 08/05/16 14:01) Anaphylaxis levofloxacin [From Levaquin] Allergy (Severe, Verified 08/05/16 14:01) Anaphylaxis Penicillins Allergy (Severe, Verified 08/05/16 14:01) Anaphylaxis Tetracycline Allergy (Severe, Verified 09/10/16 20:30) Itching tiotropium [From Spiriva with HandiHaler] Allergy (Severe, Verified 09/10/16 20: 30) Blurry Vision Warfarin Allergy (Severe, Verified 09/10/16 20:30) Difficulty Breathing acarbose Allergy (Verified 09/10/16 20:30) Blurry Vision Cefaclor Allergy (Verified 04/09/16 08:47) Anaphylaxis codeine Allergy (Verified 09/10/16 20:30) Rash Hydralazine Allergy (Verified 09/10/16 20:30) Hives atorvastatin [From Lipitor] Adverse Reaction (Verified 09/10/16 20:30) Muscle Pain fenofibrate [From Tricor] Adverse Reaction (Verified 09/10/16 20:30) Muscle Pain rivaroxaban [From Xarelto] Adverse Reaction (Verified 09/10/16 16:35) Gastrointestinal Upset Certification: Further, I certify that my clinical findings support that this patient is homebound (i.e. absences from home require considerable and taxing effort and are for medical reasons or denominational services or infrequently or short duration when for other reasons) because: Homebound Reason: Patient requires assistance of a person or device to safely leave home, Severity of cardiac or pulmonary status limits activity tolerance Attestation: My signature below is to certify that this patient is under my care and that I, or nurse practitioner, or a physician's medical assistant per diem working with me, has a face-to -face encounter with this patient.
--- NOTE | 2016-10-16 13:42 | Discharge Summary ---
Date of Encounter: 10/16/16 Time of Encounter: 09:30 - Discharge Diagnosis (1) Acute kidney injury superimposed on chronic kidney disease Priority: Primary Status: Resolved (2) Cellulitis of left lower extremity Priority: Primary Status: Acute (3) History of DVT of lower extremity Priority: Secondary Status: Chronic (4) Hyperglycemia due to type 2 diabetes mellitus Priority: Secondary Status: Resolved Qualifiers: Diabetes mellitus residential insulin use: unspecified window caser insulin use status Qualified Code(s): E11.65 - Type 2 diabetes mellitus with hyperglycemia (5) Hyperkalemia Priority: Secondary Status: Resolved (6) Atrial fibrillation Priority: Secondary Status: Chronic Qualifiers: Atrial fibrillation type: chronic Qualified Code(s): I48.2 - Chronic atrial fibrillation (7) CHF (congestive heart failure) Priority: Secondary Status: Chronic Qualifiers: Congestive heart failure type: diastolic Congestive heart failure chronicity: chronic Qualified Code(s): I50.32 - Chronic diastolic (congestive ) heart failure (8) COPD (chronic obstructive pulmonary disease) Priority: Secondary Status: Chronic Qualifiers: COPD type: unspecified COPD Qualified Code(s): J44.9 - Chronic obstructive pulmonary disease, unspecified (9) DM (diabetes mellitus), type 2 Priority: Secondary Status: Chronic Qualifiers: Diabetes mellitus complication status: with kidney complications Diabetes mellitus complication detail: with chronic kidney disease Diabetes mellitus residential insulin use: with residential use Chronic kidney disease stage: stage 3 (moderate) Qualified Code(s): E11.22 - Type 2 diabetes mellitus with diabetic chronic kidney disease; N18.3 - Chronic kidney disease, stage 3 ( moderate); 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 (10) Hypothyroidism Priority: Secondary Status: Chronic Qualifiers: Hypothyroidism type: unspecified Qualified Code(s): E03.9 - Hypothyroidism , unspecified (11) Morbid obesity with BMI of 50.0-59.9, adult Priority: Secondary Status: Chronic (12) OLIVER (obstructive sleep apnea) Priority: Secondary Status: Chronic (13) Hypomagnesemia Priority: Secondary Status: Resolved (14) Discharge planning issues Priority: Primary Status: Acute - Discharge Medications Prescriptions: Amlodipine [Norvasc] 10 mg PO DAILY #30 tablet Furosemide [Lasix] 40 mg PO BIDDIURETIC #60 tablet Lisinopril [Zestril] 40 mg PO DAILY #30 tablet Miconazole 2% ointment [[place]oe [place] Antifungal Ointment] 1 appl TP DAILY #2 tube Nystatin POWDER [Nystop] 1 appl TP TID #2 bottle PredniSONE 20 mg PO DAILY #10 tablet Home Medications: Albuterol Neb [Proventil Neb] 2.5 mg IH Q6H PRN 02/07/16 [History] Albuterol Sulfate [Proventil Hfa] 2 puff IH Q4H PRN 02/07/16 [History] FLUoxetine HCl [Prozac] 10 mg PO QAM 02/07/16 [History] Insulin Regular U-500 [HumuLIN R U-500] 0 unit .ROUTE PRN PRN 02/07/16 [History ] Pregabalin [Lyrica] 75 mg PO BID 02/07/16 [History] Melatonin 10 mg PO HS #30 capsule 02/11/16 [Rx] B12/Levomefolate Calcium/B-6 [Foltx Tablet] 1 tab PO QPM 02/29/16 [History] Budesonide/Formoterol 160/4.5 [Symbicort 160/4.5] 2 puff IH BIDR 30 Days [Rx] Montelukast [Singulair] 10 mg PO HS 30 Days 03/03/16 [Rx] Aspirin 81 mg PO QAM 03/27/16 [History] Cholecalciferol (Vitamin D3) [Dialyvite Vitamin D] 5,000 unit PO QAM 03/27/16 [ History] Omeprazole 40 mg PO QPM 03/27/16 [History] Amiodarone [Cordarone] 200 mg PO DAILY #30 tablet 04/11/16 [Rx] Acetaminophen [Tylenol] 500 mg PO Q6HR PRN 06/12/16 [History] Oxygen 2 l NS AD 06/12/16 [History] Apixaban [Eliquis] 5 mg PO BID 28 Days 08/07/16 [Rx] Febuxostat [Uloric] 80 mg PO DAILY 09/10/16 [History] Levothyroxine [Synthroid] 75 mcg PO DAILY 09/10/16 [History] HYDROcodone/Acet 5/325 mg [[place] 5-325 mg] 1 tab PO Q8H PRN 10/09/16 [History] Amlodipine [Norvasc] 10 mg PO DAILY #30 tablet 10/16/16 [Rx] Furosemide [Lasix] 40 mg PO BIDDIURETIC #60 tablet 10/16/16 [Rx] Lisinopril [Zestril] 40 mg PO DAILY #30 tablet 10/16/16 [Rx] Metoprolol XL (24 HR) Succ [Toprol Xl] 50 mg PO QAM #0 10/16/16 [Rx] Miconazole 2% ointment [[place]oe [place] Antifungal Ointment] 1 appl TP DAILY #2 tube 10/16/16 [Rx] Nystatin POWDER [Nystop] 1 appl TP TID #2 bottle 10/16/16 [Rx] PredniSONE 20 mg PO DAILY #10 tablet 10/16/16 [Rx] Allergies/Adverse Reactions: Allergies ciprofloxacin [From Cipro] Allergy (Severe, Verified 08/05/16 14:01) Anaphylaxis clarithromycin [From Biaxin] Allergy (Severe, Verified 09/10/16 20:30) Hives clonidine Allergy (Severe, Verified 08/05/16 14:01) Anaphylaxis levofloxacin [From Levaquin] Allergy (Severe, Verified 08/05/16 14:01) Anaphylaxis Penicillins Allergy (Severe, Verified 08/05/16 14:01) Anaphylaxis Tetracycline Allergy (Severe, Verified 09/10/16 20:30) Itching tiotropium [From Spiriva with HandiHaler] Allergy (Severe, Verified 09/10/16 20: 30) Blurry Vision Warfarin Allergy (Severe, Verified 09/10/16 20:30) Difficulty Breathing acarbose Allergy (Verified 09/10/16 20:30) Blurry Vision Cefaclor Allergy (Verified 04/09/16 08:47) Anaphylaxis codeine Allergy (Verified 09/10/16 20:30) Rash Hydralazine Allergy (Verified 09/10/16 20:30) Hives atorvastatin [From Lipitor] Adverse Reaction (Verified 09/10/16 20:30) Muscle Pain fenofibrate [From Tricor] Adverse Reaction (Verified 09/10/16 20:30) Muscle Pain rivaroxaban [From Xarelto] Adverse Reaction (Verified 09/10/16 16:35) Gastrointestinal Upset Date of admission: 10/10/16 16:26 Primary care physician: Lang Jarvis DO Consults: 10/12/16 12:55 Consult to Infectious Diseases [CONS] Routine Consulting Provider: [facility] [place] Reason for Consult: Worsening LLE cellulitis. Currently on IV Vanco and Aztreonam. Call Completed: No 10/13/16 13:18 Consult to Wound Care [CONS] Routine Reason for Consult: LLE cellulites vs inflammation of SQ fat. Please eval and advise. ID not presently available. Call Completed: No 10/13/16 13:45 Consult to Occupational Therapy [CONS] Routine Comment: Evaluate, develop and implement POC Consult to Physical Therapy [CONS] Routine Comment: Evaluate, develop and implement POC Consult to Fence Maker [CONS] Routine Reason for SW Consult: may need HH. wants Hospice to have more frequent home health visits. Has had hospice in the recent past Discharging clinician: Clyde Boggs Anticipated date of discharge: 10/16/16 - Patient Status Disposition: Hospice - Home Condition: Fair Functional capacity at discharge: uses cane/walker Overall status at discharge: patient is back to baseline - Discharge Instructions Follow Up With: Lang Jarvis DO [Primary Care Provider] - - Diet and Activity Activity: as per physical therapy, resume usual activities as tolerated, wear oxygen at all times Interval History: See below Hospital course: Ms. Feliciano is a 61 year old female with a PMH of CKD III, Hypothyroidism, anemia of chronic disease, CAD s/p ME, Diastolic CHF, PAD, OLIVER on CPAP, Afib on Eluquis, hx of DVT of left lower extremity Patient was admitted for management of LLE cellulitis without abscess collection She also has diagnoses of ANGÉLICA on CKD and Hypomagnessemia Hospital stay was complicated by COPD exacerbation and hyperglycemia secondary to steroids use. She also had hyperkalemia Due to history of multiple hospitalizations and multiple medication allergies, she was started on Vancomycin and Aztreonam. Wound culture revealed growth of rosario-sensitive E.cloacae. She received 4 days of IV antibiotics and was switched to po Bactrim 2 days after starting po bactrim, she developed a facial rash, hence bactrim was discontinued. Patient has been afebrile with no leukocytosis or evidence of sepsis. Lower extremity CT did nnot show any abscess collection She also developed hyperglycemia which was controlled with Insulin drip and subsequently controlled with patient's own insulin pump doses. She is seen this morning during physical therapy in o obvious distress and without complainsts Patient has many multiple chronic complains due to her many co-morbidities, none of these need be addressed inpatient Due to persistent hyperkalemia, her blood pressure medications have been adjusted viz *Metoprolol was increased to 50mg po daily *She was on Bumex at home, but has tolerated 40mg bid of lasix po in-patient with stable renal function, will discharge on same *Valsartan and Spironolactone has been discontinued *She was started on Lisinopril 40mg po daily Blood pressure, Blood sugars and Vitals are stable. Renal function has returned to baseline, Hyperkalemia has resolved and hypomagnessemia has resolved Patient is stable for discharge to home hospice Plan of care is discussed with her, she verbalized understanding - Time Spent with Patient Total time spent providing and/or coordinating discharge services: Greater than 30 minutes (40 minutes) - Constitutional Vitals: Temp Pulse Resp BP Pulse Ox 97.7 F 55 16 125/68 95 10/16/16 11:18 10/16/16 11:18 10/16/16 11:18 10/16/16 11:18 10/16/16 11:18 General appearance: Present: cooperative, A&O X 3, morbidly obese, pleasant, no acute distress, answers questions appropriately - Head Head exam: Present: atraumatic, normocephalic - Eye Eye exam: Present: PERRL, conjuntiva pink, sclera anicteric Pupils: Present: PERRL - Neck Neck exam general surgery: Present: supple, trachea midline. Absent: lymphadenopathy - Respiratory Respiratory exam: Present: CTAB. Absent: accessory muscle use, rales, rhonchi, wheezes - Cardiovascular Cardiovascular exam: Present: RRR, +S1, +S2. Absent: diastolic murmur, gallop, rubs, systolic murmur - GI/Abdominal GI/Abdominal exam: Present: normal bowel sounds, soft, no peritoneal signs. Absent: distended, tenderness - Extremities Exam Additional comments: Bilateral piting pedal edema and chronic venous congestion hyperpigmentation. LLE with healed scab around the magana, no drainage, no tenderness. - Neurological Exam Neurological exam: Present: CN II-XII intact, oriented X3, no focal deficits. Absent: pronater drift, facial droop, speech deficit - Skin Skin exam: Present: dry, intact
[2016-10-16] MEDS: *HR* HYDROcodone/Acet 5/325 mg TABLET PO PRN (14:38)
== END 2016-10-16 15:53 | disposition hospice, home (50) | DRG 602 ==
LOC: 3NENU 08:51 → EMEROO 08:51 → 3NENU 13:16 → 3BNU 10-10 15:55 → SUATTDRO 10-10 16:26 → 3ANU 10-13 13:53
PROVIDERS: ADMIT Internal Medicine; ATTEND Internal Medicine

== ENCOUNTER 2017-01-02 14:31 | Observation (INO) ==
--- NOTE | 2017-01-02 15:05 | Emergency Department Note ---
Disposition Clinical Impression: GI bleed Qualifiers: GI bleed type/associated pathology: unspecified gastrointestinal hemorrhage type Qualified Code(s): K92.2 - Gastrointestinal hemorrhage, unspecified Disposition: Admitted As Inpatient Condition: Good Time of Disposition: 17:10 GI Bleed HPI - General Chief complaint: ED GI Bleed Stated complaint: Rectal bleeding Time Seen by Provider: 01/02/17 15:01 Source: patient Mode of arrival: ambulatory Limitations: no limitations Nursing Notes Reviewed: Yes Vital Signs Reviewed: Yes - History of Present Illness HPI Narrative: 61-year-old female past medical history of anemia and congestive heart failure presents with worsening rectal bleeding over the last 4 days. She states that it began while she was straining with a bowel movement 4 days ago as blood- streaked paper, but now is noted as every time she goes to the bathroom she notes blood in her underwear. She is not passing large amounts of blood or clots, but does note that the frequency and volume have increased over the last few days. She denies any abdominal pain, headache, fever, vision problems, shortness of breath, chest pain, nausea or vomiting, rashes or edema over her baseline. She denies any rectal trauma. She denies pain with bowel movements. She is on Eliquis for history of DVT and for atrial fibrillation. Pt Subjective Complaint: blood on toilet paper, blood streaked stool - Related Data Home Medications Medication Instructions Recorded Confirmed Albuterol Neb [Proventil Neb] 2.5 mg IH Q6H PRN 02/07/16 10/09/16 Albuterol Sulfate [Proventil Hfa] 2 puff IH Q4H PRN 02/07/16 10/09/16 FLUoxetine HCl [Prozac] 10 mg PO QAM 02/07/16 10/09/16 Insulin Regular U-500 [HumuLIN R 0 unit .ROUTE PRN PRN 02/07/16 10/09/16 U-500] Pregabalin [Lyrica] 75 mg PO BID 02/07/16 10/09/16 B12/Levomefolate Calcium/B-6 1 tab PO QPM 02/29/16 10/09/16 [Foltx Tablet] Aspirin 81 mg PO QAM 03/27/16 10/09/16 Cholecalciferol (Vitamin D3) 5,000 unit PO QAM 03/27/16 10/09/16 [Dialyvite Vitamin D] Omeprazole 40 mg PO QPM 03/27/16 10/09/16 Acetaminophen [Tylenol] 500 mg PO Q6HR PRN 06/12/16 10/09/16 Oxygen 2 l NS AD 06/12/16 10/09/16 Febuxostat [Uloric] 80 mg PO DAILY 09/10/16 10/09/16 Levothyroxine [Synthroid] 75 mcg PO DAILY 09/10/16 10/09/16 HYDROcodone/Acet 5/325 mg [[place] 1 tab PO Q8H PRN 10/09/16 10/09/16 5-325 mg] Previous Rx's Medication Instructions Recorded Melatonin 10 mg PO HS #30 capsule 02/11/16 Budesonide/Formoterol 160/4.5 2 puff IH BIDR 30 Days 03/03/16 [Symbicort 160/4.5] Montelukast [Singulair] 10 mg PO HS 30 Days 03/03/16 Amiodarone [Cordarone] 200 mg PO DAILY #30 tablet 04/11/16 Apixaban [Eliquis] 5 mg PO BID 28 Days 08/07/16 Amlodipine [Norvasc] 10 mg PO DAILY #30 tablet 10/16/16 Furosemide [Lasix] 40 mg PO BIDDIURETIC #60 tablet 10/16/16 Lisinopril [Zestril] 40 mg PO DAILY #30 tablet 10/16/16 Metoprolol XL (24 HR) Succ [Toprol 50 mg PO QAM #0 10/16/16 Xl] Miconazole 2% ointment [Aloe [place] 1 appl TP DAILY #2 tube 10/16/16 Antifungal Ointment] Nystatin POWDER [Nystop] 1 appl TP TID #2 bottle 10/16/16 PredniSONE 20 mg PO DAILY #10 tablet 10/16/16 Allergies Allergy/AdvReac Type Severity Reaction Status Date / Time ciprofloxacin [From Cipro] Allergy Severe Anaphylaxis Verified 08/05/16 14:01 clarithromycin [From Biaxin] Allergy Severe Hives Verified 09/10/16 20:30 clonidine Allergy Severe Anaphylaxis Verified 08/05/16 14:01 levofloxacin [From Levaquin] Allergy Severe Anaphylaxis Verified 08/05/16 14:01 Penicillins Allergy Severe Anaphylaxis Verified 08/05/16 14:01 Tetracycline Allergy Severe Itching Verified 09/10/16 20:30 tiotropium Allergy Severe Blurry Verified 09/10/16 20:30 [From Spiriva with Vision HandiHaler] Warfarin Allergy Severe Difficulty Verified 09/10/16 20:30 Breathing acarbose Allergy Blurry Verified 09/10/16 20:30 Vision Cefaclor Allergy Anaphylaxis Verified 04/09/16 08:47 codeine Allergy Rash Verified 09/10/16 20:30 Hydralazine Allergy Hives Verified 09/10/16 20:30 atorvastatin [From Lipitor] AdvReac Muscle Pain Verified 09/10/16 20:30 fenofibrate [From Tricor] AdvReac Muscle Pain Verified 09/10/16 20:30 rivaroxaban [From Xarelto] AdvReac Gastrointestinal Verified 09/10/16 16:35 Upset All systems ED: reviewed and negative except as stated. Past Medical History - Past Medical History Attestation: Yes The following information was validated with the patient. Source: patient Medical history: Reports: atrial fibrillation, CHF, COPD, coronary artery disease, DVT, diabetes, GI bleed, hypertension, renal disease, thyroid disease Surgical history: Reports: angioplasty/stent, other Psychiatric history: Reports: anxiety, depression MEDTRONICS TECHNICIAN history: Reports: no MEDTRONICS TECHNICIAN history - Social History Smoking Status: Former smoker Smokeless Tobacco Status: No Alcohol use: Reports: none Drug use: Reports: none Physical Exam - Head Head exam: atraumatic, normocephalic, normal inspection - Eye Eye exam: Present: normal appearance, PERRL, EOMI - ENT ENT exam: normal exam, normal oropharynx, mucous membranes moist - Neck Neck exam: Present: normal inspection, full ROM, trachea midline - Chest Chest inspection: Present: normal inspection, symmetric chest wall rise - Respiratory Respiratory exam: Clear to auscultation bilaterally without wheezes rales or rhonchi Cardiovascular Cardiovascular exam: Present: regular rate, normal rhythm, normal heart sounds - Abdominal Exam Limited due to body habitus, but otherwise abdomen is soft and nontender without any definite masses. Rectal exam showed grossly bloody stool with non- bleeding external hemorrhoid and no definite internal hemorrhoids. - Extremities Exam Bilateral pedal edema. - Expanded Lower Extremity Exam Hip/Pelvis exam: Present: normal inspection, full ROM - Back Exam Back exam: Present: normal inspection, full ROM. Absent: tenderness, CVA tenderness (R), CVA tenderness (L) - Neurological Exam Neurological exam: Present: alert, oriented X3, CN II-XII intact - Psychiatric Psychiatric exam: Present: normal affect, normal mood - Skin Skin exam: Present: warm, dry, intact, normal color - General Limitations: no limitations General appearance: alert Course - Reevaluation(s) Reevaluation #1: Hemoglobin is able 10.1. Renal function is also stable. Given patient's worsening symptoms, her cardiac history, and her use of anticoagulants we will admit her for her rectal bleeding. She was accepted to the hospitalist for further management. Time: 17:09 Vital Signs Temperature 97.7 F 01/02/17 14:38 Pulse Rate 58 01/02/17 14:38 Respiratory Rate 14 01/02/17 14:38 Blood Pressure 171/52 01/02/17 14:38 O2 Sat by Pulse Oximetry 97 01/02/17 14:38 Temperature 97.7 F 01/02/17 14:38 Pulse Rate 56 01/02/17 15:45 Respiratory Rate 18 01/02/17 15:45 Blood Pressure 129/36 01/02/17 15:45 O2 Sat by Pulse Oximetry 99 01/02/17 15:45 Oxygen Delivery Oxygen Delivery Room Air GI Bleed - Lab Data Result diagrams: 01/02/17 15:46 01/02/17 15:46 Lab Results 01/02/17 01/02/17 01/02/17 Range/Units 15:36 15:46 15:46 WBC 10.9 (4.3-11.1) K/mcL RBC 3.52 L (3.82-4.97) M/mcL Hgb 10.1 L (11.5-15.4) g/dL Hct 31.9 L (35.3-44.9) % MCV 90.6 (83.0-100.0) fL MCH 28.7 (28.0-33.3) pg MCHC 31.7 (31.6-35.5) g/dL RDW 17.3 H (11.5-14.5) % Plt Count 228 (140-400) K/mcL MPV 10.2 (9.4-12.4) fL Immature Gran % 1.2 (0-4) % Seg Neutrophils % 71.3 % Lymphocytes % 20.4 % Monocytes % 6.2 % Eosinophils % 0.7 % Basophils % 0.2 % Neutrophils # 7.8 (1.6-8.9) K/mcL Lymphocytes # 2.2 (0.6-4.6) K/mcL Monocytes # 0.7 (0.0-1.3) K/mcL Eosinophils # 0.1 (0.0-0.6) K/mcL Basophils # 0.0 (0.0-0.2) K/mcL Sodium 141 (136-145) mEq/L Potassium 3.7 (3.5-4.5) mEq/L Chloride 103 (98-109) mEq/L Carbon Dioxide 27 (19-29) mEq/L BUN 54 H (7-20) mg/dL Creatinine 1.59 H (0.57-1.11) mg/dL Est GFR ( Amer) 40 L (> 60) Est GFR (Non-Af Amer) 33 L (> 60) BUN/Creatinine Ratio 34 H (6-26) Glucose 129 H (70-99) mg/dL Calculated Osmolality 308 H (280-300) Calcium 9.2 (8.6-10.8) mg/dL Stool Occult Blood Positive A (Negative) Blood Type Antibody Screen 01/02/17 Range/Units 16:10 WBC (4.3-11.1) K/mcL RBC (3.82-4.97) M/mcL Hgb (11.5-15.4) g/dL Hct (35.3-44.9) % MCV (83.0-100.0) fL MCH (28.0-33.3) pg MCHC (31.6-35.5) g/dL RDW (11.5-14.5) % Plt Count (140-400) K/mcL MPV (9.4-12.4) fL Immature Gran % (0-4) % Seg Neutrophils % % Lymphocytes % % Monocytes % % Eosinophils % % Basophils % % Neutrophils # (1.6-8.9) K/mcL Lymphocytes # (0.6-4.6) K/mcL Monocytes # (0.0-1.3) K/mcL Eosinophils # (0.0-0.6) K/mcL Basophils # (0.0-0.2) K/mcL Sodium (136-145) mEq/L Potassium (3.5-4.5) mEq/L Chloride (98-109) mEq/L Carbon Dioxide (19-29) mEq/L BUN (7-20) mg/dL Creatinine (0.57-1.11) mg/dL Est GFR ( Amer) (> 60) Est GFR (Non-Af Amer) (> 60) BUN/Creatinine Ratio (6-26) Glucose (70-99) mg/dL Calculated Osmolality (280-300) Calcium (8.6-10.8) mg/dL Stool Occult Blood (Negative) Blood Type O POSITIVE Antibody Screen NEGATIVE Attestation Statement - Attestation Attestation: I, Keanu Atwood, examined this patient and my medical decision-making was reviewed with the PRINCIPAL PLANNER/PA/Advanced Practice Nurse/Resident Physician. I agree with the documented findings, disposition and treatment plan as described except to the extent set forth below. 61-year-old female presents with concerns of rectal bleeding. Patient reports she has had multiple days of bright red blood per rectum. Patient has a history of internal and external hemorrhoids however she has also had a history of being from the colon. Patient has required transfusion in the past. Patient feels weak and fatigued more than usual. Patient denies chest pain, nausea, vomiting, hematemesis in the emergency department. Dark stool streaked with bright red blood on rectal exam. Vital signs are stable. Hemoglobin is around the patient's baseline. However with multiple comorbidities patient is at risk for deterioration. She will be admitted until her symptoms and rectal bleeding resolved.
[2017-01-02 16:00] LABS: Basophils % 0.2 %; Eosinophils # 0.1 K/mcL (0.0-0.6); Eosinophils % 0.7 %; Hematocrit 31.9 % (35.3-44.9); Hemoglobin 10.1 g/dL (11.5-15.4); Immature Granulocytes % 1.2 % (0-4); Lymphocytes # 2.2 K/mcL (0.6-4.6); Lymphocytes % 20.4 %; Mean Corpuscular HGB Conc 31.7 g/dL (31.6-35.5); Mean Corpuscular Hemoglobin 28.7 pg (28.0-33.3); Mean Corpuscular Volume 90.6 fL (83.0-100.0); Mean Platelet Volume 10.2 fL (9.4-12.4); Monocytes # 0.7 K/mcL (0.0-1.3); Monocytes % 6.2 %; Neutrophils # 7.8 K/mcL (1.6-8.9); Platelet Count 228 K/mcL (140-400); Red Blood Count 3.52 M/mcL (3.82-4.97); Red Cell Distribution Width 17.3 % (11.5-14.5); Segmented Neutrophils % 71.3 %
[2017-01-02 16:37] LABS: Calcium 9.2 mg/dL (8.6-10.8); Potassium 3.7 mEq/L (3.5-4.5)
--- NOTE | 2017-01-02 17:44 | Internal Med History&Physical ---
Date of Encounter: 01/02/17 Time of Encounter: 17:39 Assessment and Plan (1) COPD (chronic obstructive pulmonary disease) Current visit: No Status: Chronic No evidence of exacerbation. We will treat her with inhaled bronchodilators. Oxygen by nasal cannula to maintain oxygen saturation above 92%. Qualifiers: COPD type: unspecified COPD Qualified Code(s): J44.9 - Chronic obstructive pulmonary disease, unspecified (2) Lower gastrointestinal hemorrhage Current visit: No Status: Acute Have discussed physical findings with ER physician. Based on the patient's history of internal hemorrhoids and rectal exam which revealed bleeding from the anal canal with nonbleeding external hemorrhoids I suspect either internal hemorrhoidal bleeding or diverticular bleed. For this we will place the patient in observation. Monitor hemoglobin and hematocrit every 6 hours. Hold Eliquis due to extremely high risk of hemodynamically significant bleed. Consult gastroenterology. Clear liquid diet. Will monitor clinically for worsening lower GI bleed. (3) Chronic anticoagulation Current visit: No Status: Acute Hold anticoagulation due to active bleeding. (4) Morbid obesity with BMI of 50.0-59.9, adult Current visit: No Status: Chronic Outpatient weight loss regimen. (5) DVT prophylaxis Current visit: No Status: Acute Cannot use anticoagulation due to active bleeding. We will encourage ambulation and use SCDs are in the patient rests. (6) Diastolic dysfunction with chronic heart failure Current visit: No Status: Chronic Echocardiogram from August 2016 reviewed in the medical record. EF is 60-65% with normal ejection fraction.. No comment on diastolic function. We will hold Lasix for now due to active bleed and risk for acute intravascular volume loss. Monitor hemodynamically closely. Avoid aggressive fluid resuscitation. (7) DM (diabetes mellitus), type 2 Current visit: No Status: Chronic We will treat the patient with insulin Levemir and Humalog sliding scale. Qualifiers: Diabetes mellitus complication status: with kidney complications Diabetes mellitus complication detail: with chronic kidney disease Diabetes mellitus terminal system operator insulin use: with terminal system operator use Chronic kidney disease stage: stage 3 (moderate) Qualified Code(s): E11.22 - Type 2 diabetes mellitus with diabetic chronic kidney disease; N18.3 - Chronic kidney disease, stage 3 ( moderate); Z79.4 - exterminator helper (current) use of insulin (8) Paroxysmal a-fib Current visit: No Status: Chronic Currently appears to be in sinus rhythm. We will continue with metoprolol. No anticoagulation due to active bleeding. (9) DVT (deep venous thrombosis) Current visit: No Status: Chronic Qualifiers: DVT location: lower extremity Affected thrombotic vein of extremity: unspecified vein of extremity Laterality: left Chronicity: chronic Qualified Code(s): I82.502 - Chronic embolism and thrombosis of unspecified deep veins of left lower extremity (10) Chronic kidney disease Current visit: No Status: Acute Per chart review her creatinine is close to her baseline of 1.5. We will avoid nephrotoxins and monitor kidney function closely. Hold Lasix for now due to GI bleed and potential intravascular volume loss. Qualifiers: Chronic kidney disease stage: stage 3 (moderate) Qualified Code(s): N18.3 - Chronic kidney disease, stage 3 (moderate) (11) Anemia in chronic kidney disease Current visit: Yes Status: Acute Her hemoglobin is 10 which is close if not higher than her baseline per records her hemoglobin ranges from 8-11. We will obtain iron studies B12 and folate levels. Internal Medicine - H&P: HPI Chief complaint: Rectal bleeding Admitted From: Emergency Dept Plans for Post Hospital Care: Home History of present illness: Ms. Feliciano is a 61 year old female with multiple medical comorbidities including morbid obesity, COPD, chronic hypoxic respiratory failure on home oxygen, atrial fibrillation, diastolic heart failure, CAD, [place], DVT on anticoagulation with Eliquis who presented to the hospital due to rectal bleeding. She reports an onset of rectal bleeding 4 days ago after she had a period of constipation and after she passed some hard stool. Initially it was small amount. It had progressively getting more often in the larger amounts of blood with each bowel movement. Initially she reported no associated rectal pain however today she had some pain with defecation. Today she had some large amount of bleeding which she proximally quantifies between that tablespoon in a small cupful. She was concerned due to chronic treatment with anticoagulation and presented to the hospital. She denies chest pain syncope palpitations. She has chronic shortness of breath and chronic lower extremity stasis swelling and skin changes. A 10 point review of systems was negative except per history of present illness. Past medical history as above Social history former smoker, quit in 1991, denies alcohol and drug use. Ambulates with a walker. She is independent in her ADLs. Family history: Positive for CVA and the patient's mother and positive for colon cancer in the patient's brother. Past Med Surg Social Fam HX - Past Medical History Medical history: atrial fibrillation, CHF, COPD, coronary artery disease, DVT, diabetes, GI bleed, hypertension, renal disease, thyroid disease Psychiatric history: anxiety, depression - Past Surgical History Surgical History: angioplasty/stent, other - Social History Smoking Status: Former smoker Smokeless Tobacco Status: No Alcohol use: none Drug use: none - Family History Mother Family Member Ethnicity: Non- Living Status: Still Living Hx Family Cardiac Disorders: Yes Hx Family Neurologic Disorders: Yes ("mini strokes") Brother Living Status: Hx Family Cancer: Yes (colon cancer) Son Living Status: Still Living Hx Family GI Disorders: Yes (high grade dysplasia polyps) Father Adopted: No Family Member Ethnicity: Non- Living Status: Hx Family Cardiac Disorders: Yes Hx Family Respiratory Disorders: Yes (COPD) Hx Family Cancer: No Hx Family GI Disorders: No Hx Family Endocrine Disorder: No Hx Family Neuromuscular Disorders: No Hx Family Neurologic Disorders: No Hx Family HEENT Disorders: No Hx Family Autoimmune Disorders: No Internal Medicine - H&P: Meds Albuterol Neb [Proventil Neb] 2.5 mg IH Q6H PRN 02/07/16 [History] Albuterol Sulfate [Proventil Hfa] 2 puff IH Q4H PRN 02/07/16 [History] FLUoxetine HCl [Prozac] 10 mg PO QAM 02/07/16 [History] Insulin Regular U-500 [HumuLIN R U-500] 0 unit .ROUTE PRN PRN 02/07/16 [History ] Pregabalin [Lyrica] 75 mg PO BID 02/07/16 [History] Melatonin 10 mg PO HS #30 capsule 02/11/16 [Rx] B12/Levomefolate Calcium/B-6 [Foltx Tablet] 1 tab PO QPM 02/29/16 [History] Budesonide/Formoterol 160/4.5 [Symbicort 160/4.5] 2 puff IH BIDR 30 Days [Rx] Montelukast [Singulair] 10 mg PO HS 30 Days 03/03/16 [Rx] Aspirin 81 mg PO QAM 03/27/16 [History] Cholecalciferol (Vitamin D3) [Dialyvite Vitamin D] 5,000 unit PO QAM 03/27/16 [ History] Omeprazole 40 mg PO QPM 03/27/16 [History] Amiodarone [Cordarone] 200 mg PO DAILY #30 tablet 04/11/16 [Rx] Acetaminophen [Tylenol] 500 mg PO Q6HR PRN 06/12/16 [History] Oxygen 2 l NS AD 06/12/16 [History] Apixaban [Eliquis] 5 mg PO BID 28 Days 08/07/16 [Rx] Febuxostat [Uloric] 80 mg PO DAILY 09/10/16 [History] Levothyroxine [Synthroid] 75 mcg PO DAILY 09/10/16 [History] HYDROcodone/Acet 5/325 mg [[place] 5-325 mg] 1 tab PO Q8H PRN 10/09/16 [History] Amlodipine [Norvasc] 10 mg PO DAILY #30 tablet 10/16/16 [Rx] Furosemide [Lasix] 40 mg PO BIDDIURETIC #60 tablet 10/16/16 [Rx] Lisinopril [Zestril] 40 mg PO DAILY #30 tablet 10/16/16 [Rx] Metoprolol XL (24 HR) Succ [Toprol Xl] 50 mg PO QAM #0 10/16/16 [Rx] Miconazole 2% ointment [Aloe [place] Antifungal Ointment] 1 appl TP DAILY #2 tube 10/16/16 [Rx] Nystatin POWDER [Nystop] 1 appl TP TID #2 bottle 10/16/16 [Rx] Allergies ciprofloxacin [From Cipro] Allergy (Severe, Verified 08/05/16 14:01) Anaphylaxis clarithromycin [From Biaxin] Allergy (Severe, Verified 09/10/16 20:30) Hives clonidine Allergy (Severe, Verified 08/05/16 14:01) Anaphylaxis levofloxacin [From Levaquin] Allergy (Severe, Verified 08/05/16 14:01) Anaphylaxis Penicillins Allergy (Severe, Verified 08/05/16 14:01) Anaphylaxis Tetracycline Allergy (Severe, Verified 09/10/16 20:30) Itching tiotropium [From Spiriva with HandiHaler] Allergy (Severe, Verified 09/10/16 20: 30) Blurry Vision Warfarin Allergy (Severe, Verified 09/10/16 20:30) Difficulty Breathing acarbose Allergy (Verified 09/10/16 20:30) Blurry Vision Cefaclor Allergy (Verified 04/09/16 08:47) Anaphylaxis codeine Allergy (Verified 09/10/16 20:30) Rash Hydralazine Allergy (Verified 09/10/16 20:30) Hives atorvastatin [From Lipitor] Adverse Reaction (Verified 09/10/16 20:30) Muscle Pain fenofibrate [From Tricor] Adverse Reaction (Verified 09/10/16 20:30) Muscle Pain rivaroxaban [From Xarelto] Adverse Reaction (Verified 09/10/16 16:35) Gastrointestinal Upset All Systems PM: A 10-system review of systems was performed and is negative for pertinent findings except as documented above in the HPI. - Constitutional Vitals: Temp Pulse Resp BP Pulse Ox 97.7 F 56 16 172/45 99 01/02/17 14:38 01/02/17 15:45 01/02/17 17:10 01/02/17 17:10 01/02/17 15:45 General appearance: Present: A&O X 3 - Eye Eye exam: Present: PERRL, conjuntiva pink, sclera anicteric Pupils: Present: PERRL - Respiratory Respiratory exam: Present: CTAB. Absent: accessory muscle use, rales, rhonchi, wheezes - Cardiovascular Cardiovascular exam: Present: RRR, +S1, +S2. Absent: diastolic murmur, gallop, rubs, systolic murmur - GI/Abdominal GI/Abdominal exam: Present: normal bowel sounds, soft, no peritoneal signs. Absent: distended, tenderness - Extremities Exam Extremities exam: Present: pedal edema, warm, radial pulses palpable and symetrical. Absent: calf tenderness, cyanotic - Skin Skin exam: Present: dry, intact Internal Med - H&P Results - Labs CBC & Chem 7: 01/02/17 15:46 01/02/17 15:46
[2017-01-02] MEDS ORDERED: *HR* HYDROcodone/Acet 5/325 mg TABLET PO PRN (17:54)
[2017-01-02] MEDS ORDERED: Acetaminophen 325 MG TABLET PO PRN (17:57)
[2017-01-02] MEDS ORDERED: Naloxone 0.4 MG/ML INJ IVP PRN (17:57)
[2017-01-02] MEDS ORDERED: Ondansetron 4 MG/2 ML VIAL IVP PRN (17:57)
[2017-01-02] MEDS ORDERED: *HR* Dextrose 50 % in Water (Syg) 50 ML SYRINGE IVP PRN (18:02)
[2017-01-02] MEDS ORDERED: Dextrose Gel 15 GM PO PRN ×2 (18:02)
[2017-01-02] MEDS ORDERED: D5% in Water 1,000 ML IVC PRN (18:02)
--- NOTE | 2017-01-02 18:14 | Internal Med Progress Note ---
Date of Encounter: 01/02/17 - Assessment and plan (1) COPD (chronic obstructive pulmonary disease) Current Visit: No Status: Chronic Qualifiers: COPD type: unspecified COPD Qualified Code(s): J44.9 - Chronic obstructive pulmonary disease, unspecified (2) Lower gastrointestinal hemorrhage Current Visit: No Status: Acute (3) Chronic anticoagulation Current Visit: No Status: Acute (4) Morbid obesity with BMI of 50.0-59.9, adult Current Visit: No Status: Chronic (5) DVT prophylaxis Current Visit: No Status: Acute (6) Diastolic dysfunction with chronic heart failure Current Visit: No Status: Chronic (7) DM (diabetes mellitus), type 2 Current Visit: No Status: Chronic Qualifiers: Diabetes mellitus complication status: with kidney complications Diabetes mellitus complication detail: with chronic kidney disease Diabetes mellitus fdc insulin use: with long term care social worker use Chronic kidney disease stage: stage 3 (moderate) Qualified Code(s): E11.22 - Type 2 diabetes mellitus with diabetic chronic kidney disease; N18.3 - Chronic kidney disease, stage 3 ( moderate); Z79.4 - penitentiary (current) use of insulin (8) Paroxysmal a-fib Current Visit: No Status: Chronic (9) DVT (deep venous thrombosis) Current Visit: No Status: Chronic Qualifiers: DVT location: lower extremity Affected thrombotic vein of extremity: unspecified vein of extremity Laterality: left Chronicity: chronic Qualified Code(s): I82.502 - Chronic embolism and thrombosis of unspecified deep veins of left lower extremity (10) Chronic kidney disease Current Visit: No Status: Acute Qualifiers: Chronic kidney disease stage: stage 3 (moderate) Qualified Code(s): N18.3 - Chronic kidney disease, stage 3 (moderate) (11) Anemia in chronic kidney disease Current Visit: Yes Status: Acute - Constitutional Vitals: Temp Pulse Resp BP Pulse Ox 97.7 F 56 16 172/45 99 01/02/17 14:38 01/02/17 15:45 01/02/17 17:10 01/02/17 17:10 01/02/17 15:45 General appearance: Present: A&O X 3 Internal Medicine: Result - Labs CBC & Chem 7: 01/02/17 15:46 01/02/17 15:46 Consult Discharge Plan - Plan Referrals: Lang Jarvis DO [Primary Care Provider] -
[2017-01-02 18:28] LABS: Hematocrit 31.4 % (35.3-44.9)
[2017-01-02] MEDS: Pantoprazole 40 MG VIAL IVP SCH (18:42)
[2017-01-02] MEDS: Pregabalin 75 MG CAPSULE PO SCH (20:13)
[2017-01-02] MEDS: Nystatin POWDER 30 GM BOTTLE TP SCH (20:14)
[2017-01-02] MEDS ORDERED: Insulin LISPRO 300 UNITS/3 ML VIAL SQ SCH (21:00)
[2017-01-02] MEDS ORDERED: Insulin DETEMIR 100 UNIT/ML X5UNITS SQ SCH (21:00)
[2017-01-02] MEDS ORDERED: Melatonin 3 MG TABLET PO SCH (21:00)
[2017-01-02] MEDS: Albuterol 2.5 MG/3 ML NEBULIZER IH PRN (22:02)
[2017-01-02] MEDS: Budesonide/Formoterol 160/4.5 MDI IH SCH (22:03)
[2017-01-02] MEDS ORDERED: traMADol 50 MG TABLET PO PRN ×2 (22:33→23:31)
[2017-01-03 00:36] LABS: Basophils % 0.3 %; Eosinophils # 0.1 K/mcL (0.0-0.6); Eosinophils % 0.9 %; Hematocrit 31.3 % (35.3-44.9); Immature Granulocytes % 1.8 % (0-4); Lymphocytes # 2.5 K/mcL (0.6-4.6); Lymphocytes % 23.3 %; Mean Corpuscular HGB Conc 31.9 g/dL (31.6-35.5); Mean Corpuscular Hemoglobin 29.2 pg (28.0-33.3); Mean Corpuscular Volume 91.5 fL (83.0-100.0); Mean Platelet Volume 10.2 fL (9.4-12.4); Monocytes # 0.7 K/mcL (0.0-1.3); Monocytes % 6.9 %; Neutrophils # 7.2 K/mcL (1.6-8.9); Nucleated Red Blood Cells 0.2 /100 WBC (0); Platelet Count 210 K/mcL (140-400); Red Blood Count 3.42 M/mcL (3.82-4.97); Red Cell Distribution Width 17.4 % (11.5-14.5); Segmented Neutrophils % 66.8 %
[2017-01-03 00:52] LABS: Calcium 9.1 mg/dL (8.6-10.8); Potassium 3.8 mEq/L (3.5-4.5)
[2017-01-03 00:53] LABS: % Iron Saturation 18 % (15-50); Iron 54 mcg/dL (50-170); Transferrin 217 mg/dL (180-382)
[2017-01-03 00:55] LABS: Hemoglobin A1C 7.7 %
[2017-01-03 01:13] LABS: Ferritin 196 ng/ml (5-204)
[2017-01-03 01:26] LABS: Folate 14.9 ng/mL (7.0-31.4)
[2017-01-03 06:08] LABS: Hematocrit 31.7 % (35.3-44.9)
[2017-01-03] MEDS ORDERED: Insulin LISPRO 300 UNITS/3 ML VIAL SQ SCH (07:30)
[2017-01-03] MEDS: Pantoprazole 40 MG VIAL IVP SCH (07:49)
[2017-01-03] MEDS: Pregabalin 75 MG CAPSULE PO SCH (07:50)
[2017-01-03] MEDS: Nystatin POWDER 30 GM BOTTLE TP SCH (07:51)
[2017-01-03] MEDS ORDERED: (Febuxostat [Uloric] 80 MG) PO SCH (09:00)
[2017-01-03] MEDS ORDERED: amLODIPine 5 MG TABLET PO SCH (09:00)
[2017-01-03] MEDS ORDERED: Lisinopril 20 MG TABLET PO SCH (09:00)
[2017-01-03] MEDS ORDERED: *HR* Amiodarone 200 MG TABLET PO SCH (09:00)
[2017-01-03] MEDS ORDERED: Metoprolol XL (24 HR) Succ 50 MG TAB.ER.24H PO SCH (09:00)
[2017-01-03] MEDS ORDERED: FLUoxetine HCl 10 MG CAPSULE PO SCH (09:00)
[2017-01-03 11:26] VITALS: BP 125/65
[2017-01-03] MEDS: Albuterol 2.5 MG/3 ML NEBULIZER IH PRN (11:39)
[2017-01-03] MEDS: Budesonide/Formoterol 160/4.5 MDI IH SCH (11:39)
[2017-01-03 12:12] LABS: Hematocrit 31.8 % (35.3-44.9); Hemoglobin 10.1 g/dL (11.5-15.4)
--- NOTE | 2017-01-03 12:46 | Discharge Summary ---
Date of Encounter: 01/03/17 Time of Encounter: 12:40 - Discharge Diagnosis (1) COPD (chronic obstructive pulmonary disease) Priority: Secondary Status: Chronic Qualifiers: COPD type: unspecified COPD Qualified Code(s): J44.9 - Chronic obstructive pulmonary disease, unspecified (2) Lower gastrointestinal hemorrhage Priority: Primary Status: Acute (3) Chronic anticoagulation Priority: Secondary Status: Acute (4) Morbid obesity with BMI of 50.0-59.9, adult Priority: Secondary Status: Chronic (5) DVT prophylaxis Priority: Secondary Status: Acute (6) Diastolic dysfunction with chronic heart failure Priority: Secondary Status: Chronic (7) DM (diabetes mellitus), type 2 Priority: Secondary Status: Chronic Qualifiers: Diabetes mellitus complication status: with kidney complications Diabetes mellitus complication detail: with chronic kidney disease Diabetes mellitus watermelon harvesting supervisor insulin use: with watermelon harvesting supervisor use Chronic kidney disease stage: stage 3 (moderate) Qualified Code(s): E11.22 - Type 2 diabetes mellitus with diabetic chronic kidney disease; N18.3 - Chronic kidney disease, stage 3 ( moderate); Z79.4 - keno terminal 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 of insulin (8) Paroxysmal a-fib Priority: Secondary Status: Chronic (9) DVT (deep venous thrombosis) Priority: Secondary Status: Chronic Qualifiers: DVT location: lower extremity Affected thrombotic vein of extremity: unspecified vein of extremity Laterality: left Chronicity: chronic Qualified Code(s): I82.502 - Chronic embolism and thrombosis of unspecified deep veins of left lower extremity (10) Chronic kidney disease Priority: Secondary Status: Acute Qualifiers: Chronic kidney disease stage: stage 3 (moderate) Qualified Code(s): N18.3 - Chronic kidney disease, stage 3 (moderate) (11) Anemia in chronic kidney disease Priority: Secondary Status: Acute - Discharge Medications Prescriptions: Docusate [Colace] 100 mg PO BID PRN #60 capsule PRN Reason: Constipation Home Medications: Albuterol Neb [Proventil Neb] 2.5 mg IH Q6H PRN 02/07/16 [History] Albuterol Sulfate [Proventil Hfa] 2 puff IH Q4H PRN 02/07/16 [History] FLUoxetine HCl [Prozac] 10 mg PO QAM 02/07/16 [History] Insulin Regular U-500 [HumuLIN R U-500] 0 unit .ROUTE PRN PRN 02/07/16 [History ] Pregabalin [Lyrica] 75 mg PO BID 02/07/16 [History] Melatonin 10 mg PO HS #30 capsule 02/11/16 [Rx] B12/Levomefolate Calcium/B-6 [Foltx Tablet] 1 tab PO QPM 02/29/16 [History] Budesonide/Formoterol 160/4.5 [Symbicort 160/4.5] 2 puff IH BIDR 30 Days [Rx] Montelukast [Singulair] 10 mg PO HS 30 Days 03/03/16 [Rx] Cholecalciferol (Vitamin D3) [Dialyvite Vitamin D] 5,000 unit PO QAM 03/27/16 [ History] Omeprazole 40 mg PO QPM 03/27/16 [History] Amiodarone [Cordarone] 200 mg PO DAILY #30 tablet 04/11/16 [Rx] Acetaminophen [Tylenol] 500 mg PO Q6HR PRN 06/12/16 [History] Oxygen 2 l NS AD 06/12/16 [History] Febuxostat [Uloric] 80 mg PO DAILY 09/10/16 [History] Levothyroxine [Synthroid] 75 mcg PO DAILY 09/10/16 [History] HYDROcodone/Acet 5/325 mg [[place] 5-325 mg] 1 tab PO Q8H PRN 10/09/16 [History] Amlodipine [Norvasc] 10 mg PO DAILY #30 tablet 10/16/16 [Rx] Furosemide [Lasix] 40 mg PO BIDDIURETIC #60 tablet 10/16/16 [Rx] Lisinopril [Zestril] 40 mg PO DAILY #30 tablet 10/16/16 [Rx] Metoprolol XL (24 HR) Succ [Toprol Xl] 50 mg PO QAM #0 10/16/16 [Rx] Miconazole 2% ointment [Aloe Sacul Antifungal Ointment] 1 appl TP DAILY #2 tube 10/16/16 [Rx] Nystatin POWDER [Nystop] 1 appl TP TID #2 bottle 10/16/16 [Rx] Atorvastatin Calcium [Lipitor] 20 mg PO HS 01/02/17 [History] Tramadol HCl [Ultram] 50 mg PO Q4H PRN 01/02/17 [History] Docusate [Colace] 100 mg PO BID PRN #60 capsule 01/03/17 [Rx] Allergies/Adverse Reactions: Allergies ciprofloxacin [From Cipro] Allergy (Severe, Verified 08/05/16 14:01) Anaphylaxis clarithromycin [From Biaxin] Allergy (Severe, Verified 09/10/16 20:30) Hives clonidine Allergy (Severe, Verified 08/05/16 14:01) Anaphylaxis levofloxacin [From Levaquin] Allergy (Severe, Verified 08/05/16 14:01) Anaphylaxis Penicillins Allergy (Severe, Verified 08/05/16 14:01) Anaphylaxis Tetracycline Allergy (Severe, Verified 09/10/16 20:30) Itching tiotropium [From Spiriva with HandiHaler] Allergy (Severe, Verified 09/10/16 20: 30) Blurry Vision Warfarin Allergy (Severe, Verified 09/10/16 20:30) Difficulty Breathing acarbose Allergy (Verified 09/10/16 20:30) Blurry Vision Cefaclor Allergy (Verified 04/09/16 08:47) Anaphylaxis codeine Allergy (Verified 09/10/16 20:30) Rash Hydralazine Allergy (Verified 09/10/16 20:30) Hives atorvastatin [From Lipitor] Adverse Reaction (Verified 09/10/16 20:30) Muscle Pain fenofibrate [From Tricor] Adverse Reaction (Verified 09/10/16 20:30) Muscle Pain rivaroxaban [From Xarelto] Adverse Reaction (Verified 09/10/16 16:35) Gastrointestinal Upset Date of admission: 01/02/17 17:03 Primary care physician: Lang Jarvis DO Consults: 01/02/17 18:00 Consult to Occupational Therapy [CONS] Routine Comment: Evaluate, develop and implement POC Consult to Physical Therapy [CONS] Routine Comment: Evaluate, develop and implement POC 01/02/17 18:31 Consult to Tailing Hand [CONS] Routine Reason for SW Consult: Pt has home O2 through [facility] and [facility] at this time. - Patient Status Disposition: Home, Self-Care Condition: Good Functional capacity at discharge: uses cane/walker Overall status at discharge: patient is back to baseline - Discharge Instructions Follow Up With: Lang Jarvis DO [Primary Care Provider] - Felicitas Hill MD [Partnered Physician] - Additional Instructions: Please call Dr. Hill's office tomorrow to arrange for a colonoscopy outpatient. Hold aspirin and Eliquis. He can restart aspirin tomorrow and can restart Eliquis on January 05 if the bleeding had stopped. Return to the hospital if the bleeding gets worse R you experience chest pain shortness of breath or severe abdominal pain. - Diet and Activity Activity: increase activity as tolerated Diet: other (Follow a clear liquid diet until evaluated by sewing machine operator) Hospital course: Hospital presentation: Ms. Feliciano is a 61 year old female with multiple medical comorbidities including morbid obesity, COPD, chronic hypoxic respiratory failure on home oxygen, atrial fibrillation, diastolic heart failure, CAD, OLIVER, DVT on anticoagulation with Eliquis who presented to the hospital due to rectal bleeding. She reported an onset of rectal bleeding 4 days ago after she had a period of constipation and after she passed some hard stool. Initially it was small amount. It had progressively getting more often in the larger amounts of blood with each bowel movement. Initially she reported no associated rectal pain however today she had some pain with defecation. Today she had some large amount of bleeding which she approximately quantifies between a tablespoon and a small cupful. She was concerned due to chronic treatment with anticoagulation and presented to the hospital. She denied chest pain syncope palpitations. She has chronic shortness of breath and chronic lower extremity stasis swelling and skin changes. Hospital course: The patient was admitted to the medical service under observation. Her initial hemoglobin in the emergency department was 10.1. During this hospitalization she had repeat hemoglobin and hematocrit every 6 hours and this remained at 10.0. The last one as 10.1. It was noted that she has chronic anemia with a bite baseline close to 10. She reported some continued rectal bleeding through the night however this morning she said she pats the bowel movement with no bleeding. Her Eliquis and aspirin were held since admission. She was instructed to start aspirin tomorrow and was also instructed to restart Eliquis in 2 days if the bleeding resolves. She was instructed to follow-up with gastroenterology and call their office tomorrow to arrange for possible sigmoidoscopy. She was instructed to return to the hospital if bleeding gets worse or if she has chest pain or sudden onset shortness of breath. She verbalizes agreement and understanding of the plan. - Time Spent with Patient Total time spent providing and/or coordinating discharge services: - Constitutional Vitals: Temp Pulse Resp BP Pulse Ox 97.4 F L 53 20 125/65 97 01/03/17 11:25 01/03/17 11:25 01/03/17 11:25 01/03/17 11:25 01/03/17 11:25 General appearance: Present: A&O X 3 - Respiratory Respiratory exam: Present: CTAB. Absent: accessory muscle use, rales, rhonchi, wheezes - Cardiovascular Cardiovascular exam: Present: RRR, +S1, +S2. Absent: diastolic murmur, gallop, rubs, systolic murmur - GI/Abdominal GI/Abdominal exam: Present: normal bowel sounds, soft, no peritoneal signs. Absent: distended, tenderness Additional comments: Obese - Extremities Exam Extremities exam: Present: pedal edema, warm, radial pulses palpable and symetrical. Absent: calf tenderness, cyanotic
== END 2017-01-03 14:40 | disposition home or self-care (01) ==
LOC: 3BNU 14:31 → EMEROO 14:31 → 3BNU 17:30
PROVIDERS: ADMIT Internal Medicine; ATTEND Registered Nurse

== ENCOUNTER 2017-10-17 14:43 | Inpatient (IN) ==
--- NOTE | 2017-10-17 15:05 | Emergency Department Note ---
Disposition Clinical Impression: Chest pain of uncertain etiology, Dyspnea, Symptomatic bradycardia Disposition: Admitted As Inpatient Condition: Fair Time of Disposition: 18:37 Chest Pain HPI - General Chief Complaint: ED Chest Pain Stated Complaint: chest pain, trav Time Seen by Provider: 10/17/17 14:45 Source: patient Mode of arrival: EMS Limitations: no limitations Vital Signs Reviewed: Yes Nursing Notes Reviewed: Yes - History of Present Illness HPI Narrative: Mrs. Feliciano, a 62yo female, presents from home for evaluation of progressive dyspnea and chest pain. Symptom onset 3 weeks ago with progressive dyspnea despite her baseline 3 L nasal cannula at home. She will has dyspnea at rest. Improved with her albuterol inhaler. Associated with nonproductive cough Additionally, during this 3 week time period, patient had intermittent sensation of palpitations and intermittent sharp stabbing left chest pain. This morning, 3 hours prior to arrival, his became a constant sharp stabbing. Worse with deep inspiration. Nonradiating. She does have associated left upper extremity decrease in sensation; no weakness. Cardiac risk factors: AR 2 with stent 2, hypertension, hyperlipidemia, morbid obesity, diabetes, congestive heart failure Pulmonary history: COPD on 3 L nasal cannula baseline with albuterol. ROS: Positive: As above Negative: Fever, chills, diaphoresis, abdominal pain, changes in bowel or bladder, unusual back pains Severity scale (1-10): 7 - Related Data Home Medications Medication Instructions Recorded Confirmed Albuterol Neb [Proventil Neb] 2.5 mg IH Q6H PRN 02/07/16 10/17/17 Albuterol Sulfate [Proventil Hfa] 2 puff IH Q4H PRN 02/07/16 10/17/17 FLUoxetine HCl [Prozac] 10 mg PO QAM 02/07/16 10/17/17 Insulin Regular U-500 [HumuLIN R 0 unit .ROUTE PRN PRN 02/07/16 10/17/17 U-500] Pregabalin [Lyrica] 75 mg PO BID 02/07/16 10/17/17 B12/Levomefolate Calcium/B-6 1 tab PO QPM 02/29/16 10/17/17 [Foltx Tablet] Cholecalciferol (Vitamin D3) 5,000 unit PO QAM 03/27/16 10/17/17 [Dialyvite Vitamin D] Omeprazole 40 mg PO QPM 03/27/16 10/17/17 Acetaminophen [Tylenol] 500 mg PO Q6HR PRN 06/12/16 10/17/17 Oxygen 2 l NS AD 06/12/16 10/17/17 Febuxostat [Uloric] 80 mg PO DAILY 09/10/16 10/17/17 Levothyroxine [Synthroid] 88 mcg PO DAILY 09/10/16 10/17/17 HYDROcodone/Acet 5/325 mg [[place] 1 tab PO Q8H PRN 10/09/16 10/17/17 5-325 mg] Atorvastatin Calcium [Lipitor] 20 mg PO HS 01/02/17 10/17/17 Tramadol HCl [Ultram] 50 mg PO Q4H PRN 01/02/17 10/17/17 Previous Rx's Medication Instructions Recorded Melatonin 10 mg PO HS #30 capsule 02/11/16 Budesonide/Formoterol 160/4.5 2 puff IH BIDR 30 Days inhaler 03/03/16 [Symbicort 160/4.5] Amiodarone [Cordarone] 200 mg PO DAILY #30 tablet 04/11/16 Furosemide [Lasix] 40 mg PO BIDDIURETIC #60 tablet 10/16/16 Lisinopril [Zestril] 40 mg PO DAILY #30 tablet 10/16/16 Metoprolol XL (24 HR) Succ [Toprol 50 mg PO QAM #0 10/16/16 Xl] Miconazole 2% ointment [Aloe [place] 1 appl TP DAILY #2 tube 10/16/16 Antifungal Ointment] Nystatin POWDER [Nystop] 1 appl TP TID #2 bottle 10/16/16 amLODIPine [Norvasc] 10 mg PO DAILY #30 tablet 10/16/16 Docusate [Colace] 100 mg PO BID PRN #60 capsule 01/03/17 Allergies Allergy/AdvReac Type Severity Reaction Status Date / Time ciprofloxacin [From Cipro] Allergy Severe Anaphylaxis Verified 08/05/16 14:01 clarithromycin [From Biaxin] Allergy Severe Hives Verified 09/10/16 20:30 clonidine Allergy Severe Anaphylaxis Verified 08/05/16 14:01 levofloxacin [From Levaquin] Allergy Severe Anaphylaxis Verified 08/05/16 14:01 Penicillins Allergy Severe Anaphylaxis Verified 08/05/16 14:01 Tetracycline Allergy Severe Itching Verified 09/10/16 20:30 tiotropium Allergy Severe Blurry Verified 09/10/16 20:30 [From Spiriva with Vision HandiHaler] Warfarin Allergy Severe Difficulty Verified 09/10/16 20:30 Breathing acarbose Allergy Blurry Verified 09/10/16 20:30 Vision Cefaclor Allergy Anaphylaxis Verified 04/09/16 08:47 codeine Allergy Rash Verified 09/10/16 20:30 Hydralazine Allergy Hives Verified 09/10/16 20:30 atorvastatin [From Lipitor] AdvReac Muscle Pain Verified 09/10/16 20:30 fenofibrate [From Tricor] AdvReac Muscle Pain Verified 09/10/16 20:30 rivaroxaban [From Xarelto] AdvReac Gastrointestinal Verified 09/10/16 16:35 Upset All systems ED: reviewed and negative except as stated. Review of Systems: As Per HPI Chest Pain PMH - Past Medical History Medical history: Reports: atrial fibrillation, CHF, COPD, coronary artery disease, DVT, diabetes, GI bleed, hypertension, renal disease, thyroid disease Surgical history: Reports: angioplasty/stent, other Psychiatric history: Reports: anxiety, depression MOVING WORKER history: Reports: no MOVING WORKER history - Social History Smoking Status: Former smoker Alcohol use: Reports: none Drug use: Reports: none Physical Exam Vital Signs Reviewed General: Patient is alert, oriented, and in acute resources stress-she is tachypneic and using accessory muscles to breathe. Head: atraumatic, normocephalic Eye: normal appearance, PERRL, EOMI, no scleral icterus, no conjunctival injection ENT: mucous membranes moist, normal external ear exam Neck: normal inspection, trachea midline, full ROM Chest: normal inspection, symmetric chest rise Respiratory: Poor respiratory effort. Prolonged expiratory phase. Bilateral breath sounds have no wheeze with decreased air injury to the bilateral bases. Cardiovascular: Regular rate and rhythm. No clicks, rubs, gallops, or murmors. Normal heart sounds. Abdomen: Obese. Bowel sounds present normoactive x-4 quadrants. Abdomen is soft, nondistended, and nontender. No guarding or rebound. Unable to assess organomegaly secondary to patient's body habitus. Musculoskeletal: Spontaneously moving all extremities. Skin: warm, dry, intact. Neuro: Alert and oriented x4. Sensation light touch intact. Psych: Patient's affect is appropriate for situation. - General Limitations: no limitations General appearance: alert, in no apparent distress Course Course Narrative: She presents from home with dyspnea and chest pain. She has multiple cardiac risk factors. Her chest pain is improved with some lingual nitroglycerin. Initial chest x-ray concerning for right basilar pneumonia. We will provide empiric antibiotics. Patient has anaphylactic allergy to levaquin with angioedema. EKG shows sinus bradycardia with occasional PVC. Initial troponin is less than 0.03. I discussed the patient with the admitting hospitalist who agreed to accept the patient for chest pain rule out ACS as well as right lower lobe pneumonia. 18:25 Patient was bradycardic on the monitor. Upon entering the room, she was awake however felt lightheaded. EKG shows frequent PVCs. Has replaced and 0.5 of atropine was given. EKG straightened out to sinus rhythm with a rate of 65; no PVCs visible after atropine. Suspect she was in a poorly perfusing junctional rhythm. Additionally, she was hypoglycemic to 66; 1 amp dextrose provided. Hospitalist was paged and updated. Cardiology was consulted. Chest X-Ray 10/17/17 15:05 IMPRESSION: Right basilar airspace disease, atelectasis and/or pneumonia D/ / Phyllis Castrejon Cha, MD / Phyllis Castrejon Cha, MD Interpreting Provider: Phyllis Castrejon Cha, MD Vital Signs Temperature 97.7 F 10/17/17 14:49 Pulse Rate 58 10/17/17 14:49 Respiratory Rate 20 10/17/17 14:49 Blood Pressure 192/146 10/17/17 14:49 O2 Sat by Pulse Oximetry 94 10/17/17 14:49 Temperature 98.3 F 10/18/17 20:16 Pulse Rate 58 10/18/17 20:16 Respiratory Rate 17 10/18/17 20:16 Blood Pressure 161/75 10/18/17 20:16 O2 Sat by Pulse Oximetry 96 10/18/17 20:16 Oxygen Delivery Oxygen Delivery Nasal Cannula Chest Pain - Medical Records Medical records reviewed: Yes I reviewed the patient's medical records. - Lab Data Lab results reviewed: Yes I reviewed the patient's lab results. Result diagrams: 10/18/17 03:02 10/18/17 03:02 Lab Results 10/17/17 10/17/17 10/17/17 Range/Units 15:08 16:08 16:08 WBC (4.3-11.1) K/mcL RBC (3.82-4.97) M/mcL Hgb (11.5-15.4) g/dL Hct (35.3-44.9) % MCV (83.0-100.0) fL MCH (28.0-33.3) pg MCHC (31.6-35.5) g/dL RDW (11.5-14.5) % Plt Count (140-400) K/mcL MPV (9.4-12.4) fL Immature Gran % (0-4) % Seg Neutrophils % % Lymphocytes % % Monocytes % % Eosinophils % % Basophils % % Neutrophils # (1.6-8.9) K/mcL Lymphocytes # (0.6-4.6) K/mcL Monocytes # (0.0-1.3) K/mcL Eosinophils # (0.0-0.6) K/mcL Basophils # (0.0-0.2) K/mcL Immature Plt Fraction (1.1-6.1) % PT 13.4 H (9.4-12.1) Seconds INR 1.2 APTT 30.3 (26.0-36.0) Seconds Sodium (136-145) mEq/L Potassium (3.5-5.1) mEq/L Chloride (98-107) mEq/L Carbon Dioxide (23-29) mEq/L BUN (8-23) mg/dL Creatinine (0.60-1.20) mg/dL Est GFR ( Amer) (> 60) Est GFR (Non-Af Amer) (> 60) BUN/Creatinine Ratio (6-26) Glucose (70-105) mg/dL POC Glucose (58-89) Calculated Osmolality (280-300) Calcium (8.6-10.3) mg/dL Troponin I (< 0.04) ng/mL B-Natriuretic Peptide 470 H (Less than 100) pg/mL Urine Color Yellow (Yellow) Urine Clarity Clear (Clear) Urine pH 6.5 (5.0-8.0) pH Units Ur Specific [place] 1.010 (1.010-1.025) Urine Protein 100 H (Neg-Trace) mg/dL Urine Glucose (UA) Normal (Normal) mg/dL Urine Ketones Negative (Negative) mg/dL Urine Blood Trace H (Negative) Urine Nitrite Negative (Negative) Urine Bilirubin Negative (Negative) Urine Urobilinogen Normal (Normal) mg/dL Ur Leukocyte Esterase Small H (Negative) Urine Microscopic RBC 0-3 (0-3) per hpf Urine Microscopic WBC 15-30 H (0-3) per hpf Ur Squamous Epith Cells Moderate H (None-Few) per lpf Urine Bacteria Moderate H (None-Few) per hpf Hyaline Casts None Seen (None-Few) per lpf Ur Culture Indicated? YES A (NO) 10/17/17 10/17/17 10/17/17 Range/Units 16:08 16:08 16:08 WBC 10.4 (4.3-11.1) K/mcL RBC 4.18 (3.82-4.97) M/mcL Hgb 11.2 L (11.5-15.4) g/dL Hct 36.7 (35.3-44.9) % MCV 87.8 (83.0-100.0) fL MCH 26.8 L (28.0-33.3) pg MCHC 30.5 L (31.6-35.5) g/dL RDW 17.2 H (11.5-14.5) % Plt Count 229 (140-400) K/mcL MPV 10.1 (9.4-12.4) fL Immature Gran % 0.5 (0-4) % Seg Neutrophils % 80.2 % Lymphocytes % 10.4 % Monocytes % 5.5 % Eosinophils % 2.9 % Basophils % 0.5 % Neutrophils # 8.4 (1.6-8.9) K/mcL Lymphocytes # 1.1 (0.6-4.6) K/mcL Monocytes # 0.6 (0.0-1.3) K/mcL Eosinophils # 0.3 (0.0-0.6) K/mcL Basophils # 0.1 (0.0-0.2) K/mcL Immature Plt Fraction 4.0 (1.1-6.1) % PT (9.4-12.1) Seconds INR APTT (26.0-36.0) Seconds Sodium 137 (136-145) mEq/L Potassium 3.8 (3.5-5.1) mEq/L Chloride 99 (98-107) mEq/L Carbon Dioxide 31 H (23-29) mEq/L BUN 33 H (8-23) mg/dL Creatinine 0.98 (0.60-1.20) mg/dL Est GFR ( Amer) > 60 (> 60) Est GFR (Non-Af Amer) 58 L (> 60) BUN/Creatinine Ratio 34 H (6-26) Glucose 72 (70-105) mg/dL POC Glucose (58-89) Calculated Osmolality 290 (280-300) Calcium 9.1 (8.6-10.3) mg/dL Troponin I 0.03 (< 0.04) ng/mL B-Natriuretic Peptide (Less than 100) pg/mL Urine Color (Yellow) Urine Clarity (Clear) Urine pH (5.0-8.0) pH Units Ur Specific [place] (1.010-1.025) Urine Protein (Neg-Trace) mg/dL Urine Glucose (UA) (Normal) mg/dL Urine Ketones (Negative) mg/dL Urine Blood (Negative) Urine Nitrite (Negative) Urine Bilirubin (Negative) Urine Urobilinogen (Normal) mg/dL Ur Leukocyte Esterase (Negative) Urine Microscopic RBC (0-3) per hpf Urine Microscopic WBC (0-3) per hpf Ur Squamous Epith Cells (None-Few) per lpf Urine Bacteria (None-Few) per hpf Hyaline Casts (None-Few) per lpf Ur Culture Indicated? (NO) 10/17/17 Range/Units 18:28 WBC (4.3-11.1) K/mcL RBC (3.82-4.97) M/mcL Hgb (11.5-15.4) g/dL Hct (35.3-44.9) % MCV (83.0-100.0) fL MCH (28.0-33.3) pg MCHC (31.6-35.5) g/dL RDW (11.5-14.5) % Plt Count (140-400) K/mcL MPV (9.4-12.4) fL Immature Gran % (0-4) % Seg Neutrophils % % Lymphocytes % % Monocytes % % Eosinophils % % Basophils % % Neutrophils # (1.6-8.9) K/mcL Lymphocytes # (0.6-4.6) K/mcL Monocytes # (0.0-1.3) K/mcL Eosinophils # (0.0-0.6) K/mcL Basophils # (0.0-0.2) K/mcL Immature Plt Fraction (1.1-6.1) % PT (9.4-12.1) Seconds INR APTT (26.0-36.0) Seconds Sodium (136-145) mEq/L Potassium (3.5-5.1) mEq/L Chloride (98-107) mEq/L Carbon Dioxide (23-29) mEq/L BUN (8-23) mg/dL Creatinine (0.60-1.20) mg/dL Est GFR ( Amer) (> 60) Est GFR (Non-Af Amer) (> 60) BUN/Creatinine Ratio (6-26) Glucose (70-105) mg/dL POC Glucose 66 (58-89) Calculated Osmolality (280-300) Calcium (8.6-10.3) mg/dL Troponin I (< 0.04) ng/mL B-Natriuretic Peptide (Less than 100) pg/mL Urine Color (Yellow) Urine Clarity (Clear) Urine pH (5.0-8.0) pH Units Ur Specific [place] (1.010-1.025) Urine Protein (Neg-Trace) mg/dL Urine Glucose (UA) (Normal) mg/dL Urine Ketones (Negative) mg/dL Urine Blood (Negative) Urine Nitrite (Negative) Urine Bilirubin (Negative) Urine Urobilinogen (Normal) mg/dL Ur Leukocyte Esterase (Negative) Urine Microscopic RBC (0-3) per hpf Urine Microscopic WBC (0-3) per hpf Ur Squamous Epith Cells (None-Few) per lpf Urine Bacteria (None-Few) per hpf Hyaline Casts (None-Few) per lpf Ur Culture Indicated? (NO) - Radiology Data Radiology results reviewed: Yes I reviewed the patient's radiology results. - EKG Data EKG attestation: Yes I reviewed and interpreted this EKG. EKG results narrative: EKG #1 EKG dated 10/17/17 at 14:55 interpreted as sinus bradycardia with a rate of 58. Rare PVC. Nonspecific ST-T changes. Compared to previous dated 09/12/2016 showing no acute ischemic changes a comparison. EKG #2 EKG dated 10/17/12 at 18:26 interpreted as sinus rhythm with rate of 76. Frequent PVC. Nonspecific ST-T changes. EKG #3 EKG dated 10/17/09 18:29 interpreted as with frequent PVCs. Prolonged QTC at [address]-T changes. EKG #4 EKG dated 10/17/09 18:30 interpreted as sinus rhythm with rate of 65. No PVCs. QTC prolonged at 449 ms. Left axis. Nonspecific ST-T changes. EKG shows normal: sinus rhythm Heart Score - Score History: Moderately Suspicious EKG: Non Specific repolarisation Disturbance Age: 45-65 Risk Factors: Equal/Greater than 3 risk factor or history of atherosclerotic disease Troponin: Less than normal limit HEART Score Total: 5 Attestation Statement - Attestation Attestation: I examined this patient and my medical decision-making was reviewed with the Resident Physician, Dr. Lynne. I agree with the documented findings, disposition and treatment plan as described except to the extent set forth below. Patient is a 62-year-old morbidly obese white female with multiple medical problems including CAD, hypertension, diabetes who presents to the emergency department with gradually worsening shortness of breath, exertional chest pain. I agree with patient's physical exam findings as documented. On chest x-ray has basilar atelectasis versus pneumonia. She has had a history of cough and worsening shortness of breath, her with empiric antibiotics. Troponin and remainder patient's labs are unremarkable. Patient will be admitted for chest pain for ongoing serial enzymes and reevaluation. She is pain-free following nature administration and aspirin in the ER. EKG does not show any acute ischemia. After patient had been dispositioned and was still in a bed in the emergency department she became lightheaded and had asked her family to request something for her to eat or drink and she thought her sugar was dropping. When we went in to assess the patient and she became profoundly bradycardic with a heart rate around 25 bpm with a stable blood pressure she became diaphoretic and pale and we immediately started fluids, gave her an amp of D50, and she also received 0.5 mg of atropine. Patient had improvement within minutes and heart rate stabilized at about 60 62 bpm with a stable blood pressure. Patient had resolution of her symptoms. We included symptomatic bradycardia due to this profound episode and updated the hospitalist as to her incident and cardiac consultation.
[2017-10-17] MEDS ORDERED: Albuterol 2.5 MG/3 ML NEBULIZER IH ONE (15:06)
[2017-10-17] MEDS: Nitroglycerin 0.4 MG TAB.SUBL SL ONE ×2 (15:23→16:51)
[2017-10-17 15:34] LABS: Bilirubin,Urine Negative (Negative); Blood,Urine Trace (Negative); Clarity,Urine Clear (Clear); Color,Urine Yellow (Yellow); Glucose,Urine (UA) Normal (Normal); Ketones,Urine Negative (Negative); Leukocyte Esterase,Urine Small (Negative); Nitrite,Urine Negative (Negative); PH,Urine 6.5 pH Units (5.0-8.0); Protein,Urine 100 mg/dL (Neg-Trace); Urobilinogen,Urine Normal (Normal)
[2017-10-17 15:37] LABS: Bacteria,Urine Moderate per hpf (None-Few); Hyaline Casts,Urine None Seen per lpf (None-Few); RBC,Urine 0-3 per hpf (0-3); Squamous Epithelial Cell,Urine Moderate per lpf (None-Few); WBC,Urine 15-30 per hpf (0-3)
[2017-10-17 16:17] LABS: Basophils # 0.1 K/mcL (0.0-0.2); Basophils % 0.5 %; Eosinophils # 0.3 K/mcL (0.0-0.6); Eosinophils % 2.9 %; Hematocrit 36.7 % (35.3-44.9); Hemoglobin 11.2 g/dL (11.5-15.4); Immature Granulocytes % 0.5 % (0-4); Lymphocytes # 1.1 K/mcL (0.6-4.6); Lymphocytes % 10.4 %; Mean Corpuscular HGB Conc 30.5 g/dL (31.6-35.5); Mean Corpuscular Hemoglobin 26.8 pg (28.0-33.3); Mean Corpuscular Volume 87.8 fL (83.0-100.0); Mean Platelet Volume 10.1 fL (9.4-12.4); Monocytes # 0.6 K/mcL (0.0-1.3); Monocytes % 5.5 %; Neutrophils # 8.4 K/mcL (1.6-8.9); Platelet Count 229 K/mcL (140-400); Red Blood Count 4.18 M/mcL (3.82-4.97); Red Cell Distribution Width 17.2 % (11.5-14.5); Segmented Neutrophils % 80.2 %
[2017-10-17 16:23] LABS: INR 1.2; Prothrombin Time 13.4 Seconds (9.4-12.1)
[2017-10-17 16:26] LABS: Activated Partial Thrombo Time 30.3 Seconds (26.0-36.0)
[2017-10-17 16:35] LABS: BUN/Creatinine Ratio 34 (6-26); Blood Urea Nitrogen 33 mg/dL (8-23); Calcium 9.1 mg/dL (8.6-10.3); Carbon Dioxide 31 mEq/L (23-29); Chloride 99 mEq/L (98-107); Glucose 72 mg/dL (70-105); Osmolality,Calculated 290 (280-300); Potassium 3.8 mEq/L (3.5-5.1); Sodium 137 mEq/L (136-145); eGFR For African Americans > 60 (> 60); eGFR For Non-African Americans 58 (> 60)
[2017-10-17] MEDS ORDERED: Levofloxacin 750 MG/150 ML 750 MG/150 ML BAG IVPB ONE (16:51)
[2017-10-17] MEDS ORDERED: traMADol 50 MG TABLET PO PRN (17:33)
[2017-10-17] MEDS ORDERED: Albuterol 2.5 MG/3 ML NEBULIZER IH PRN (17:33)
[2017-10-17] MEDS ORDERED: *HR* HYDROcodone/Acet 5/325 mg TABLET PO PRN (17:33)
--- NOTE | 2017-10-17 17:59 | Internal Med History&Physical ---
<Hugo Simon - Last Filed: 10/17/17 20:55> Date of Encounter: 10/17/17 Time of Encounter: 17:57 Assessment and Plan (1) Chest pain Current visit: No Status: Acute ASSESSMENT: - Chest pain x3 weeks. She reports the chest pain as sharp and midsternal with radiation to the left arm. History of coronary artery disease, has had 2 prior MIs and stent placements. His factors include diabetes, obesity, HLD, HTN and sedentary lifestyle. Additionally, it should be noted that the chest x-ray was suspicious for a right lower lobe PNA PLAN: - cardiac enzymes x 2 q 6 hr - EKG - ASA - Hold, BB, Amiodarone, and CCB - O2 by NC to keep SpO2 greater than 92% - CBC, BMP in AM - Heparin 5000 U SQ BID - 2D Echo - Cardiology consult Qualifiers: Chest pain type: chest pain due to myocardial ischemia Qualified Code(s): I20.0 - Unstable angina (2) Community acquired pneumonia Current visit: Yes Status: Acute Presents today with a three-week history of progressive dyspnea as well as chest pain which is worsened with cough chest x-ray shows right basilar airspace disease concerning for pneumonia ASSESSMENT: - SOB due to community-acquired pneumonia. She denies any recent antibiotic use or any recent hospital stays. - Antibiotics aztreonam and vancomycin- this combination and does sleep well atypical coverage, however due to patient's many stated allergies most eliciting an anaphylactic response this is the most appropriate coverage. - CBC, CMP in AM - Respiratory support per NC; titrate to maintain Spo2 >92% - Continuous tele, and Spo2 monitoring - Continue home medications - Heparin 5000 U SQ BID Qualifiers: Laterality: unspecified laterality Qualified Code(s): J18.9 - Pneumonia, unspecified organism (3) Symptomatic bradycardia Current visit: Yes Status: Acute While in the ED the patient had an episode of symptomatic bradycardia with a HR in the 20's. Atropine was given and her heart rate returned to sinus rhythm. -Cardiology consult stat -Disposition is changed to a floor with a higher level of acuity -Continuous telemetry, continuous SPO2 monitoring -Closely monitor hemodynamic status -hold beta bianca, calcium channel bianca and amiodarone -Place pacer pads on patient (4) UTI (urinary tract infection) Current visit: Yes Status: Acute Urinalysis positive for blood and leukocyte esterase -Meropenem and doxycycline -Send urine for culture and follow culture results Qualifiers: Urinary tract infection type: acute cystitis Hematuria presence: without hematuria Qualified Code(s): N30.00 - Acute cystitis without hematuria (5) Hypertensive urgency Current visit: Yes Status: Acute Initially presented with HTN urgency. Has resolved at this time. Holding BB, CCB and amiodarone for now as she experienced an episode of symptomatic bradycardia with heart rate in the 20s. Continue ROSALIO, continuous monitoring of hemodynamic status, moved to floor with a high level of acuity (6) COPD exacerbation Current visit: Yes Status: Acute Presents today with acute on chronic respiratory failure with hypoxia secondary to COPD exacerbation -Bronchodilators -Respiratory support per nasal cannula (7) Dyspnea Current visit: Yes Status: Acute Secondary to a lower lobe pneumonia, acute exacerbation of COPD Qualifiers: Dyspnea type: unspecified Qualified Code(s): R06.00 - Dyspnea, unspecified (8) Hypothyroidism Current visit: No Status: Acute Qualifiers: Hypothyroidism type: unspecified Qualified Code(s): E03.9 - Hypothyroidism , unspecified (9) Acute and chronic respiratory failure with hypoxia Current visit: No Status: Chronic Presented today with dyspnea and hypoxia. She reports progressive dyspnea, chest pain for the last 3 weeks. At baseline she is on 3 L nasal cannula and able to complete daily activities without hypoxia or dyspnea however, she is reporting hypoxia and dyspnea with activity. See plan above (10) CAD (coronary artery disease) Current visit: No Status: Chronic Qualifiers: Coronary Disease-Associated Artery/Lesion type: [place] artery [place] vs. transplanted heart: [place] heart Associated angina: without angina Qualified Code(s): I25.10 - Atherosclerotic heart disease of [place] coronary artery without angina pectoris (11) Chronic kidney disease (CKD) Current visit: No Status: Chronic Qualifiers: Chronic kidney disease stage: stage 3 (moderate) Qualified Code(s): N18.3 - Chronic kidney disease, stage 3 (moderate) (12) DM (diabetes mellitus), type 2 Current visit: Yes Status: Chronic hold sliding scale coverage for now. Hypoglycemic this evening, requiring intervention. 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 Chronic kidney disease stage: stage 3 (moderate) Qualified Code(s): E11.22 - Type 2 diabetes mellitus with diabetic chronic kidney disease; N18.3 - Chronic kidney disease, stage 3 ( moderate); N18.3 - Chronic kidney disease, stage 3 (moderate); Z79.4 - snf (current) use of insulin; Z79.4 - snf (current) use of insulin; Z79.4 - snf (current) use of insulin; Z79.4 - snf (current) use of insulin (13) DVT prophylaxis Current visit: Yes Status: Acute Heparin 5000 units SC BID Internal Medicine - H&P: HPI Chief complaint: Chest pain, shortness of breath, PNA, UTI Admitted From: Home Plans for Post Hospital Care: Home History of present illness: Ms. Feliciano is a 62 year old female with a PMH of DM II, COPD, CAD, [place] x 2 stents , CKD, gout, CHF, and neuropathy. She presents to [facility] ED today with chest pain and progressive dyspnea. She reports a symptom onset of approximately 3- weeks ago. She describes the chest pain as midsternal, and sharp/stabbing with radiation to her left arm and reports it as constant. She further states the the chest pain and dyspnea are worsened with activity and reports that her oxygen drop below 90% with activity which is a change from baseline. At baseline she wears 3LNC without shortness of breath and is able to perform her daily activities without difficulty. She denies any cough, abdominal pain, unilateral extremity swelling or pain, nausea, vomiting or diarrhea. She does admit to increased swelling in her BLE, reporting that if she removes her leg wraps her legs will have edema within one hour. Past Med Surg Social Fam HX - Past Medical History Medical history: atrial fibrillation, CHF, COPD, coronary artery disease, DVT, diabetes, GI bleed, hypertension, renal disease, thyroid disease Psychiatric history: anxiety, depression - Past Surgical History Surgical History: angioplasty/stent, other - Social History Smoking Status: Former smoker Smokeless Tobacco Status: No Alcohol use: none Drug use: none - Family History Mother Family Member Ethnicity: Non- Living Status: Still Living Hx Family Cardiac Disorders: Yes Hx Family Neurologic Disorders: Yes ("mini strokes") Brother Living Status: Hx Family Cancer: Yes (colon cancer) Son Living Status: Still Living Hx Family GI Disorders: Yes (high grade dysplasia polyps) Father Adopted: No Family Member Ethnicity: Non- Living Status: Hx Family Cardiac Disorders: Yes Hx Family Respiratory Disorders: Yes (COPD) Hx Family Cancer: No Hx Family GI Disorders: No Hx Family Endocrine Disorder: No Hx Family Neuromuscular Disorders: No Hx Family Neurologic Disorders: No Hx Family HEENT Disorders: No Hx Family Autoimmune Disorders: No Internal Medicine - H&P: Meds Albuterol Neb [Proventil Neb] 2.5 mg IH Q6H PRN 02/07/16 [History] Albuterol Sulfate [Proventil Hfa] 2 puff IH Q4H PRN 02/07/16 [History] FLUoxetine HCl [Prozac] 10 mg PO QAM 02/07/16 [History] Insulin Regular U-500 [HumuLIN R U-500] 0 unit .ROUTE PRN PRN 02/07/16 [History ] Pregabalin [Lyrica] 75 mg PO BID 02/07/16 [History] Melatonin 10 mg PO HS #30 capsule 02/11/16 [Rx] B12/Levomefolate Calcium/B-6 [Foltx Tablet] 1 tab PO QPM 02/29/16 [History] Budesonide/Formoterol 160/4.5 [Symbicort 160/4.5] 2 puff IH BIDR 30 Days inhaler 03/03/16 [Rx] Cholecalciferol (Vitamin D3) [Dialyvite Vitamin D] 5,000 unit PO QAM 03/27/16 [ History] Omeprazole 40 mg PO QPM 03/27/16 [History] Amiodarone [Cordarone] 200 mg PO DAILY #30 tablet 04/11/16 [Rx] Acetaminophen [Tylenol] 500 mg PO Q6HR PRN 06/12/16 [History] Oxygen 2 l NS AD 06/12/16 [History] Febuxostat [Uloric] 80 mg PO DAILY 09/10/16 [History] Levothyroxine [Synthroid] 88 mcg PO DAILY 09/10/16 [History] HYDROcodone/Acet 5/325 mg [[place] 5-325 mg] 1 tab PO Q8H PRN 10/09/16 [History] Furosemide [Lasix] 40 mg PO BIDDIURETIC #60 tablet 10/16/16 [Rx] Lisinopril [Zestril] 40 mg PO DAILY #30 tablet 10/16/16 [Rx] Metoprolol XL (24 HR) Succ [Toprol Xl] 50 mg PO QAM #0 10/16/16 [Rx] Miconazole 2% ointment [Aloe [place] Antifungal Ointment] 1 appl TP DAILY #2 tube 10/16/16 [Rx] Nystatin POWDER [Nystop] 1 appl TP TID #2 bottle 10/16/16 [Rx] amLODIPine [Norvasc] 10 mg PO DAILY #30 tablet 10/16/16 [Rx] Atorvastatin Calcium [Lipitor] 20 mg PO HS 01/02/17 [History] Tramadol HCl [Ultram] 50 mg PO Q4H PRN 01/02/17 [History] Docusate [Colace] 100 mg PO BID PRN #60 capsule 01/03/17 [Rx] 3 Allergy/AdvReac Type Severity Reaction Status Date / Time ciprofloxacin [From Cipro] Allergy Severe Anaphylaxis Verified 08/05/16 14:01 clarithromycin [From Biaxin] Allergy Severe Hives Verified 09/10/16 20:30 clonidine Allergy Severe Anaphylaxis Verified 08/05/16 14:01 levofloxacin [From Levaquin] Allergy Severe Anaphylaxis Verified 08/05/16 14:01 Penicillins Allergy Severe Anaphylaxis Verified 08/05/16 14:01 Tetracycline Allergy Severe Itching Verified 09/10/16 20:30 tiotropium Allergy Severe Blurry Verified 09/10/16 20:30 [From Spiriva with Vision HandiHaler] Warfarin Allergy Severe Difficulty Verified 09/10/16 20:30 Breathing acarbose Allergy Blurry Verified 09/10/16 20:30 Vision Cefaclor Allergy Anaphylaxis Verified 04/09/16 08:47 codeine Allergy Rash Verified 09/10/16 20:30 Hydralazine Allergy Hives Verified 09/10/16 20:30 atorvastatin [From Lipitor] AdvReac Muscle Pain Verified 09/10/16 20:30 fenofibrate [From Tricor] AdvReac Muscle Pain Verified 09/10/16 20:30 rivaroxaban [From Xarelto] AdvReac Gastrointestinal Verified 09/10/16 16:35 Upset All Systems PM: A 10-system review of systems was performed and is negative for pertinent findings except as documented above in the HPI. - Constitutional Constitutional: no chills, no fever(s), no night sweats - EENT Eyes: no change in vision, no discharge, no pain, no photophobia Ears: no ear discharge, no ear pain, no tinnitus Nose, mouth and throat: no dysphagia, no nasal discharge, no neck pain, no sore throat - Cardiovascular Cardiovascular ROS IM: as per HPI, chest pain, dyspnea, dyspnea on exertion, edema, orthopnea, palpitations, no diaphoresis, no lightheadedness, no paroxysmal nocturnal dyspnea, no syncope - Respiratory Respiratory: dyspnea, dyspnea on exertion, no cough, no hemoptysis, no wheezing , no snoring, no stridor, no pain on inspiration, no chest congestion, no excessive phlegm production, no change in phlegm color, no pain with cough - Gastrointestinal Gastrointestinal: no abdominal pain, no diarrhea, no hematemesis, no hematochezia, no melena, no nausea, no vomiting - Genitourinary Genitourinary: no change in urinary stream, no dysuria, no flank pain, no hematuria - Musculoskeletal Musculoskeletal ROS IM: no numbness, no tingling - Integumentary Integumentary IM: no rash, no unusual bruising - Neurological Neurological ROS: no confusion, no convulsions, no focal weakness, no numbness, no tingling, no tremor(s) - Hematologic/Lymphatic Hematologic/Lymphatic: no easy bruising - Constitutional Vitals: Temp Pulse Resp BP Pulse Ox 97.7 F 58 18 192/146 96 10/17/17 14:49 10/17/17 14:49 10/17/17 15:29 10/17/17 14:49 10/17/17 15:29 General appearance: Present: cooperative, mild distress, A&O X 3, answers questions appropriately - Head Head exam: Present: atraumatic, normocephalic - Neck Neck exam general surgery: Present: supple, trachea midline. 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 Absent: rhonchi, stridor, wheezes Additional comments: poor respiratory effort - Cardiovascular Cardiovascular exam: Present: bradycardia, RRR, +S1, +S2. Absent: irregular rhythm, JVD - GI/Abdominal GI/Abdominal exam: Present: normal bowel sounds, soft, no peritoneal signs. Absent: distended, tenderness - Extremities Exam Extremities exam: Present: normal capillary refill, radial pulses palpable and symmetrical. Absent: calf tenderness, joint swelling, pedal edema, tenderness Additional comments: B/L lower legs wrapped d/t swelling - Neurological Exam Neurological exam: Present: CN II-XII intact, oriented X3, no focal deficits. Absent: pronater drift, facial droop, speech deficit - Skin Skin exam: Present: dry, intact Internal Med - H&P Results - Labs CBC & Chem 7: 10/17/17 16:08 10/17/17 16:08 - EKG Data -: EKG Interpreted by Myself EKG shows normal: sinus rhythm Rate: bradycardia - EKG Data Prior EKG available for review: yes When compared to previous EKG: there is no significant change - Impressions Impressions Chest X-Ray 10/17/17 15:05 IMPRESSION: Right basilar airspace disease, atelectasis and/or pneumonia D/ / Phyllis Castrejon Cha, MD / Phyllis Castrejon Cha, MD Interpreting Provider: Phyllis Castrejon Cha, MD <Harvey Zhao T - Last Filed: 10/18/17 07:47> Date of Encounter: 10/18/17 Internal Medicine - H&P: HPI History of present illness: Ms. Feliciano is a 62 year old female All Systems PM: A 10-system review of systems was performed and is negative for pertinent findings except as documented above in the HPI. - Constitutional Vitals: Temp Pulse Resp BP Pulse Ox 97.6 F 46 18 143/45 95 10/18/17 00:00 10/18/17 00:00 10/18/17 04:09 10/18/17 00:00 10/18/17 04:09 Internal Med - H&P Results - Labs CBC & Chem 7: 10/18/17 03:02 10/18/17 03:02 Labs: Short CBC 10/18/17 Range/Units 03:02 WBC 10.3 (4.3-11.1) K/mcL Hgb 10.7 L (11.5-15.4) g/dL Hct 35.8 (35.3-44.9) % Plt Count 237 (140-400) K/mcL BMP 10/18/17 03:02 Sodium 134 L Potassium 3.8 Chloride 96 L Carbon Dioxide 31 H BUN 30 H Creatinine 0.94 Glucose 78 Calcium 9.1 Cardiac Enzymes 10/17/17 10/18/17 Range/Units 21:05 03:02 Troponin I < 0.03 < 0.03 (< 0.04) ng/mL - Attending Attestation The patient was independently examined and her available records were reviewed. Admitted with UTI and suspected PNA. Multiple antibiotic allergies so Aztreonam and vanc started. Allergic to all abx covering atypicals. While in ER she became bradycardic. Pacer pads placed and given multiple doses of Atropine. She remained asx and ECG showed SB with freq PVCs. Cardiology called and will see in am. Agree with churn driller helper A&P
[2017-10-17] MEDS ORDERED: D5% in Water 1,000 ML IVC PRN (18:23)
[2017-10-17] MEDS ORDERED: *HR* Dextrose 50 % in Water (Syg) 50 ML SYRINGE IVP PRN (18:23)
[2017-10-17] MEDS ORDERED: Dextrose Gel 15 GM/37.5 ML TUBE PO PRN ×2 (18:23)
[2017-10-17] MEDS ORDERED: Naloxone 0.4 MG/ML INJ IVP PRN (18:24)
[2017-10-17] MEDS ORDERED: *HR* Atropine Sulfate 1 MG/10 ML SYRINGE ONE (18:28)
[2017-10-17] MEDS ORDERED: Dexamethasone 10 MG/ML VIAL IVP ONE (19:32)
[2017-10-17] MEDS: Ipratropium/Albuterol Neb 3 ML IH SCH (20:05)
[2017-10-17] MEDS ORDERED: *HR* Atropine Sulfate 1 MG/10 ML SYRINGE IVP STA (20:07)
[2017-10-17] MEDS ORDERED: Insulin LISPRO 300 UNITS/3 ML VIAL SQ SCH (21:00)
[2017-10-17] MEDS: Melatonin 3 MG TABLET PO SCH (21:07)
[2017-10-17] MEDS: Pregabalin 75 MG CAPSULE PO SCH (21:07)
[2017-10-17] MEDS: Furosemide 40 MG/4 ML VIAL IVP SCH (21:07)
[2017-10-17] MEDS: Nystatin POWDER 30 GM BOTTLE TP SCH (21:08)
[2017-10-17] MEDS: *HR* Heparin 5,000 UNIT/ML VIAL SQ SCH (21:08)
[2017-10-17] MEDS ORDERED: Budesonide/Formoterol 160/4.5 MDI IH SCH (22:00)
[2017-10-17] MEDS: Aspirin 81 MG TAB.CHEW PO SCH (22:51)
[2017-10-17] MEDS: Vancomycin 1,750 MG in D5% in Water 500 ML IVPB SCH (22:51)
[2017-10-18] MEDS ORDERED: Meropenem 1,000 MG in 0.9 % Sodium Chloride Mini Bag 100 ML IVPB SCH
[2017-10-18] MEDS: Ipratropium/Albuterol Neb 3 ML IH SCH ×6 (00:15→19:57)
[2017-10-18] MEDS: Aztreonam 1,000 MG in Water for inj. (sterile) 20 ML 10 ML IVPB SCH ×4 (00:49→23:56)
[2017-10-18 03:49] LABS: Hematocrit 35.8 % (35.3-44.9); Hemoglobin 10.7 g/dL (11.5-15.4); Mean Corpuscular HGB Conc 29.9 g/dL (31.6-35.5); Mean Corpuscular Hemoglobin 26.4 pg (28.0-33.3); Mean Corpuscular Volume 88.2 fL (83.0-100.0); Mean Platelet Volume 10.7 fL (9.4-12.4); Platelet Count 237 K/mcL (140-400); Red Blood Count 4.06 M/mcL (3.82-4.97); Red Cell Distribution Width 17.1 % (11.5-14.5)
[2017-10-18 04:13] LABS: BUN/Creatinine Ratio 32 (6-26); Blood Urea Nitrogen 30 mg/dL (8-23); Calcium 9.1 mg/dL (8.6-10.3); Carbon Dioxide 31 mEq/L (23-29); Chloride 96 mEq/L (98-107); Glucose 78 mg/dL (70-105); Osmolality,Calculated 283 (280-300); Potassium 3.8 mEq/L (3.5-5.1); Sodium 134 mEq/L (136-145); eGFR For African Americans > 60 (> 60); eGFR For Non-African Americans > 60 (> 60)
[2017-10-18] MEDS ORDERED: Doxycycline 100 MG in 0.9 % Sodium Chloride Mini Bag 100 ML IVPB SCH (06:00)
[2017-10-18] MEDS: *HR* Heparin 5,000 UNIT/ML VIAL SQ SCH ×2 (06:23→19:21)
[2017-10-18] MEDS ORDERED: Insulin LISPRO 300 UNITS/3 ML VIAL SQ SCH (07:30)
--- NOTE | 2017-10-18 07:47 | Electrocardiograph Report ---
[address] [address] Test Date: 2017-10-17 Pat Name: Ashley Feliciano Department: 103 Room: 2N10 Gender: F Training Director: KODAK : 1955 Requested By: Robert Lynne Order Number: [id number] Reading MD: Sivakumar Fuller MD Measurements Intervals [place] Rate: 58 P: -1 AK: 157 QRS: -47 QRSD: 129 T: 90 QT: 387 QTc: 385 Interpretive Statements SINUS BRADYCARDIA WITH OCCASIONAL VENTRICULAR PREMATURE COMPLEXES MARKED LEFT AXIS DEVIATION MODERATE INTRAVENTRICULAR CONDUCTION DELAY Poor R wave progression Electronically Signed On 10-18-2017 7:45:30 EST by Sivakumar Fuller MD
--- NOTE | 2017-10-18 08:32 | Internal Med Progress Note ---
Date of Encounter: 10/18/17 Time of Encounter: 08:25 - Subjective Interval history: 62 year old woman with a hx of of DM II, COPD, CAD, [place] x 2 stents, CKD, gout, CHF, and neuropathy admitted last evening with chest pain and progressive dyspnea. She reports a symptom onset of approximately 3-weeks ago. She describes the chest pain as midsternal, and sharp/stabbing with radiation to her left arm and reports it as constant. She further states the the chest pain and dyspnea are worsened with activity and reports that her oxygen drop below 90 % with activity which is a change from baseline. At baseline she wears 3LNC without shortness of breath and is able to perform her daily activities without difficulty. She denies any cough, abdominal pain, unilateral extremity swelling or pain, nausea, vomiting or diarrhea. She does admit to increased swelling in her BLE, reporting that if she removes her leg wraps her legs will have edema within one hour. While in the ER she became bradycardic with HRs in the 20-40. Her ECG showed sinus shlomo with frequent PVC. She was given atropine and pacer pads were placed. She did not require transcutaneous pacing. Her rates improved to 50s by the time she reached the floor. Cardiology was consulted and called. She was initially symptmatic when her rate was in the 202 but she's remained asymtomatic after her rate returned to >40s. Assessment and Plan (1) Chest pain -Intitally she reported the chest pain as sharp and midsternal with radiation to the left arm. Her symptoms are improved but not entirely resolved today. Her Troponins x 3 sets are all wnl. Her BB was held due bradycardia but continue aspirin. She is allergic to statins. (2) Community acquired pneumonia Presents today with a three-week history of progressive dyspnea as well as chest pain which is worsened with cough chest x-ray shows right basilar airspace disease concerning for pneumoniaContinue current abx regimen. Aztreonam and vancomycin were started due to her extensive list of Abx allergies. Lungs are clear this am. No cough and reqiring less than her baseline O2 requirement. (3) Symptomatic bradycardia Current visit: Yes Status: Acute Continue holding beta bianca, calcium channel bianca and amiodarone Keep pacer pads on patient until seen by cardiology Troponins neg x3 Appreciate cardiology assistance Await further recommendations (4) UTI (urinary tract infection) Continue current abx (5) Hypertensive urgency Current visit: Yes Status: Acute Resolved nowy (6) COPD exacerbation Current visit: Yes Status: Acute Continue Bronchodilators Respiratory support per nasal cannula Wheezing minimal (09) CAD (coronary artery disease) Continue current medications. (10) DM (diabetes mellitus), type 2 Current visit: Yes Status: Chronic Hold sliding scale coverage for now. Hypoglycemic this evening, requiring intervention. Resume sliding scale when blood glucose stabilizes Hypoglycemic protocol (11) DVT prophylaxis Current visit: Yes Status: Acute Heparin 5000 units SC BID - Constitutional Vitals: Temp Pulse Resp BP Pulse Ox 98.1 F 54 18 150/59 97 10/18/17 08:08 10/18/17 08:08 10/18/17 08:08 10/18/17 08:08 10/18/17 08:08 General appearance: Present: cooperative, A&O X 3, morbidly obese, pleasant, no acute distress, answers questions appropriately - Head Head exam: Present: atraumatic, normocephalic - Eye Eye exam: Present: EOMI, PERRL, conjuntiva pink, sclera anicteric Pupils: Present: PERRL - Neck Neck exam general surgery: Present: supple, trachea midline. Absent: lymphadenopathy - Respiratory Respiratory exam: Present: CTAB. Absent: accessory muscle use, rales, rhonchi, wheezes - Cardiovascular Cardiovascular exam: Present: RRR, +S1, +S2. Absent: diastolic murmur, gallop, rubs, systolic murmur - GI/Abdominal GI/Abdominal exam: Present: normal bowel sounds, soft, no peritoneal signs. Absent: distended, guarding, rebound, rigid, tenderness - Extremities Exam Extremities exam: Present: warm, radial pulses palpable and symmetrical. Absent : calf tenderness, cyanotic, pedal edema - Neurological Exam Neurological exam: Present: CN II-XII intact, oriented X3, no focal deficits. Absent: pronater drift, facial droop, speech deficit - Skin Skin exam: Present: dry, intact Internal Medicine: Result - Labs CBC & Chem 7: 10/18/17 03:02 10/18/17 03:02 Labs: Short CBC 10/18/17 Range/Units 03:02 WBC 10.3 (4.3-11.1) K/mcL Hgb 10.7 L (11.5-15.4) g/dL Hct 35.8 (35.3-44.9) % Plt Count 237 (140-400) K/mcL BMP 10/18/17 03:02 Sodium 134 L Potassium 3.8 Chloride 96 L Carbon Dioxide 31 H BUN 30 H Creatinine 0.94 Glucose 78 Calcium 9.1 Cardiac Enzymes 10/17/17 10/18/17 Range/Units 21:05 03:02 Troponin I < 0.03 < 0.03 (< 0.04) ng/mL - ABG Interpretation ABG results: PT/INR, D-dimer PT 13.4 Seconds (9.4-12.1) H 10/17/17 16:08 Consult Discharge Plan - Plan Referrals: Lang Jarvis DO [Primary Care Provider] -
[2017-10-18] MEDS ORDERED: Aminoglycoside Consult 1 EACH MC ONE (08:39)
[2017-10-18] MEDS: Aspirin 81 MG TAB.CHEW PO SCH (08:49)
[2017-10-18] MEDS: Pregabalin 75 MG CAPSULE PO SCH ×2 (08:49→21:30)
[2017-10-18] MEDS: Cholecalciferol (D-3) 1,000 UNIT TABLET PO SCH (08:50)
[2017-10-18] MEDS: Lisinopril 20 MG TABLET PO SCH (08:50)
[2017-10-18] MEDS: FLUoxetine HCl 10 MG CAPSULE PO SCH (08:50)
[2017-10-18] MEDS: Furosemide 40 MG/4 ML VIAL IVP SCH ×2 (08:50→21:30)
[2017-10-18] MEDS: Febuxostat [Uloric] 80 MG PO SCH (08:58)
[2017-10-18] MEDS ORDERED: Metoprolol XL (24 HR) Succ 50 MG TAB.ER.24H PO SCH (09:00)
[2017-10-18] MEDS ORDERED: Levofloxacin 750 MG/150 ML 750 MG/150 ML BAG IVPB SCH (09:00)
[2017-10-18] MEDS ORDERED: amLODIPine 5 MG TABLET PO SCH (09:00)
[2017-10-18] MEDS ORDERED: *HR* Amiodarone 200 MG TABLET PO SCH (09:00)
[2017-10-18] MEDS: Vancomycin 1,750 MG in D5% in Water 500 ML IVPB SCH (09:07)
[2017-10-18] MEDS ORDERED: Perflutren Lipid Microsphere 1.3 ML in 0.9 % Sodium Chloride 8.7 ML IVP ONE (09:40)
[2017-10-18] MEDS: Miconazole 2% ointment 114 GM TUBE TP SCH (09:50)
[2017-10-18] MEDS: Nystatin POWDER 30 GM BOTTLE TP SCH ×3 (09:50→21:32)
--- NOTE | 2017-10-18 13:17 | Cardiology Consult Note ---
<Stefano Larson - Last Filed: 10/19/17 16:18> Date of Encounter: 10/19/17 Time of Encounter: 13:15 Assessment and Plan (1) Symptomatic bradycardia Current Visit: Yes Status: Acute Per Cardiology: Junctional bradycardia noted on ECG and episodes of frequent PVCs. Off Toprol XL 50mg PO daily and amiodarone 200mg PO daily. Plan to monitor tele overnight. (2) Chest pain of uncertain etiology Current Visit: Yes Status: Acute Per Cardiology: Atypical chest pain symptoms occurring with deep inspiration and coughing. Troponins negative 3. Last heart catheterization February 2016 showed mid LAD 20-30 %, mid circumflex 30%, status post BMS to OM1 90% lesion, proximal RCA 20%. On asa and statin. BB on hold for bradycardia. (3) Community acquired pneumonia Current Visit: Yes Status: Acute Per Cardiology: Management per primary service. Qualifiers: Laterality: unspecified laterality Qualified Code(s): J18.9 - Pneumonia, unspecified organism (4) UTI (urinary tract infection) Current Visit: Yes Status: Acute Per Cardiology: Management per primary. Qualifiers: Urinary tract infection type: acute cystitis Hematuria presence: without hematuria Qualified Code(s): N30.00 - Acute cystitis without hematuria Discussion w patient/family: The assessment and plan as outlined above was discussed with the patient who expressed understanding and agreement. All questions were answered. Thank you for involving us in the care of your patient. Please call with any questions. History of Present Illness Consult date: 10/18/17 Requesting physician: Robert Lynne Consult reason: Bradycardia Chief complaint: Palps, confusion History of present illness: Ms. Feliciano is a 62 year old female with a relevant past medical history of DM 2 , hypertension, hyperlipidemia, obstructive sleep apnea, obesity, COPD, paroxysmal atrial fibrillation, CAD, history of DVT. Last seen by Dr. Atkins June 2017. Cardiology consult for chest pain and concerns of symptomatically bradycardia. Patient reports increased shortness of breath at rest over the past 3 weeks with desaturations with exertion in the 70s. She does report 2 different types of chest discomfort. The first being midsternal epigastric pressure/heaviness at rest with deep inspiration and coughing. Secondly, over the past few weeks she has been experiencing episodes of flip-flopping sensations in her chest that lasts for a few seconds and subside. She denies any dizziness, syncope, falls. Reports in the ER was feeling the palpitations with "mental fogginess". Symptoms now resolved. She denies any symptoms. She reports she continues to experience bright red rectal bleeding intermittently with history of banding 2. She reports failed Xarelto and Eliquis due to bleeding issues. Patient on aspirin only for anticoagulation. Patient was supposed to follow-up with GI for further evaluation, reports has not completed due to multiple hospital stays. Patient reports aware of increased stroke risk. Past Med Surg Social Fam HX - Past Medical History Attestation: Yes The following information was validated with the patient. Source: patient, old records reviewed Medical history: atrial fibrillation, CHF, COPD, coronary artery disease, DVT, diabetes, GI bleed, hypertension, renal disease, thyroid disease Psychiatric history: anxiety, depression - Past Surgical History Surgical History: angioplasty/stent, other - Social History Smoking Status: Former smoker Smokeless Tobacco Status: No Alcohol use: none Drug use: none - Family History Mother Family Member Ethnicity: Non- Living Status: Still Living Hx Family Cardiac Disorders: Yes Hx Family Neurologic Disorders: Yes ("mini strokes") Brother Living Status: Hx Family Cancer: Yes (colon cancer) Son Living Status: Still Living Hx Family GI Disorders: Yes (high grade dysplasia polyps) Father Adopted: No Family Member Ethnicity: Non- Living Status: Hx Family Cardiac Disorders: Yes Hx Family Respiratory Disorders: Yes (COPD) Hx Family Cancer: No Hx Family GI Disorders: No Hx Family Endocrine Disorder: No Hx Family Neuromuscular Disorders: No Hx Family Neurologic Disorders: No Hx Family HEENT Disorders: No Hx Family Autoimmune Disorders: No Medications and Allergies Albuterol Neb [Proventil Neb] 2.5 mg IH Q6H PRN 02/07/16 [History] Albuterol Sulfate [Proventil Hfa] 2 puff IH Q4H PRN 02/07/16 [History] FLUoxetine HCl [Prozac] 10 mg PO QAM 02/07/16 [History] Insulin Regular U-500 [HumuLIN R U-500] 0 unit .ROUTE PRN PRN 02/07/16 [History ] Pregabalin [Lyrica] 75 mg PO BID 02/07/16 [History] Melatonin 10 mg PO HS #30 capsule 02/11/16 [Rx] B12/Levomefolate Calcium/B-6 [Foltx Tablet] 1 tab PO QPM 02/29/16 [History] Budesonide/Formoterol 160/4.5 [Symbicort 160/4.5] 2 puff IH BIDR 30 Days inhaler 03/03/16 [Rx] Cholecalciferol (Vitamin D3) [Dialyvite Vitamin D] 5,000 unit PO QAM 03/27/16 [ History] Omeprazole 40 mg PO QPM 03/27/16 [History] Amiodarone [Cordarone] 200 mg PO DAILY #30 tablet 04/11/16 [Rx] Acetaminophen [Tylenol] 500 mg PO Q6HR PRN 06/12/16 [History] Oxygen 2 l NS AD 06/12/16 [History] Febuxostat [Uloric] 80 mg PO DAILY 09/10/16 [History] Levothyroxine [Synthroid] 88 mcg PO DAILY 09/10/16 [History] HYDROcodone/Acet 5/325 mg [Lima 5-325 mg] 1 tab PO Q8H PRN 10/09/16 [History] Furosemide [Lasix] 40 mg PO BIDDIURETIC #60 tablet 10/16/16 [Rx] Lisinopril [Zestril] 40 mg PO DAILY #30 tablet 10/16/16 [Rx] Metoprolol XL (24 HR) Succ [Toprol Xl] 50 mg PO QAM #0 10/16/16 [Rx] Miconazole 2% ointment [Aloe Arnot Antifungal Ointment] 1 appl TP DAILY #2 tube 10/16/16 [Rx] Nystatin POWDER [Nystop] 1 appl TP TID #2 bottle 10/16/16 [Rx] amLODIPine [Norvasc] 10 mg PO DAILY #30 tablet 10/16/16 [Rx] Atorvastatin Calcium [Lipitor] 20 mg PO HS 01/02/17 [History] Tramadol HCl [Ultram] 50 mg PO Q4H PRN 01/02/17 [History] Docusate [Colace] 100 mg PO BID PRN #60 capsule 01/03/17 [Rx] 3 Allergy/AdvReac Type Severity Reaction Status Date / Time ciprofloxacin [From Cipro] Allergy Severe Anaphylaxis Verified 08/05/16 14:01 clarithromycin [From Biaxin] Allergy Severe Hives Verified 09/10/16 20:30 clonidine Allergy Severe Anaphylaxis Verified 08/05/16 14:01 levofloxacin [From Levaquin] Allergy Severe Anaphylaxis Verified 08/05/16 14:01 Penicillins Allergy Severe Anaphylaxis Verified 08/05/16 14:01 Tetracycline Allergy Severe Itching Verified 09/10/16 20:30 tiotropium Allergy Severe Blurry Verified 09/10/16 20:30 [From Spiriva with Vision HandiHaler] Warfarin Allergy Severe Difficulty Verified 09/10/16 20:30 Breathing acarbose Allergy Blurry Verified 09/10/16 20:30 Vision Cefaclor Allergy Anaphylaxis Verified 04/09/16 08:47 codeine Allergy Rash Verified 09/10/16 20:30 Hydralazine Allergy Hives Verified 09/10/16 20:30 atorvastatin [From Lipitor] AdvReac Muscle Pain Verified 09/10/16 20:30 fenofibrate [From Tricor] AdvReac Muscle Pain Verified 09/10/16 20:30 rivaroxaban [From Xarelto] AdvReac Gastrointestinal Verified 09/10/16 16:35 Upset All Systems Review: A 10-system review of systems was performed and is negative for pertinent findings except as documented above in the HPI. - Constitutional Constitutional: fatigue - Cardiovascular Cardiovascular: as per HPI, chest pain at rest, dyspnea at rest, dyspnea on exertion, leg edema, lightheadedness, palpitations Physical Examination Vital Signs, Last 4 Hours Temp Pulse Resp BP Pulse Ox 10/18/17 12:13 17 97 10/18/17 11:34 97.9 F 52 17 155/61 97 10/18/17 09:20 18 97 General: Conversant, No Apparent Distress HEENT: Atraumatic, Normocephaly, Mucus Membranes Moist Neck: No JVD, Normal carotid pulses Cardiac: Reg Rate and Rhythm, Normal S1 and S2, No Murmur Lungs: Normal Breath Sounds, No Wheeze, Rales, Rhonchi, Other (Diminished breath sounds throughout) Neuro: Alert and responsive, No focal deficits noted Abdomen: Soft, Non-Tender Skin: No rashes noted on visualized skin Musculoskeletal: No Chest Wall Tenderness Extremities: No Clubbing, No Cyanosis, Normal Pulses, Other (Bilateral lower extremity edema +1-2 pitting left greater than right, left leg erythematous) Results 10/19/17 09:10 10/19/17 09:10 Lab Results Laboratory Tests 10/17/17 10/17/17 10/17/17 15:08 16:08 16:08 INR 1.2 Troponin I B-Natriuretic Peptide 470 H Ur Leukocyte Esterase Small H Ur Squamous Epith Cells Moderate H Urine Bacteria Moderate H Ur Culture Indicated? YES A 10/17/17 10/17/17 10/18/17 16:08 21:05 03:02 INR Troponin I 0.03 < 0.03 < 0.03 B-Natriuretic Peptide Ur Leukocyte Esterase Ur Squamous Epith Cells Urine Bacteria Ur Culture Indicated? ITS Impressions Chest X-Ray 10/17/17 15:05 IMPRESSION: Right basilar airspace disease, atelectasis and/or pneumonia D/ / Phyllis Castrejon Cha, MD / Phyllis Castrejon Cha, MD Interpreting Provider: Phyllis Castrejon Cha, MD Echocardiogram 10/18/17 17:54 Impressions: LVEF 55-60%. Despite the use of Definity, not all LV segments were well visualized. Grossly, the left ventricle is normal in chamber size, wall thickness, and function. Moderate left ventricular diastolic dysfunction. Right ventricle was not well visualized. Unable to estimate RVSP due to lack of TR jet. Valves were not well visualized. No obvious valvular dysfunction noted. Findings: Study Quality * Technically sub-optimal due to body habitus. ECG Findings * Normal sinus rhythm. Left Ventricle * LVEF 55-60%. * Despite the use of Definity, not all LV segments were well visualized. * Grossly, the left ventricle is normal in chamber size, wall thickness, and function. * Moderate left ventricular diastolic dysfunction. Right Ventricle * Right ventricle was not well visualized. Left Atrium * Grossly, at least moderately dilated. Right Atrium * Mildly dilated right atrium. Interatrial Septum * Interatrial septum not well evaluated. Aortic Valve * Aortic valve not well visualized. * No aortic stenosis. * No aortic regurgitation. Mitral Valve * Mitral valve not well visualized. * No mitral regurgitation. * No mitral stenosis. Tricuspid Valve * Tricuspid valve not well visualized. * No tricuspid regurgitation. * Unable to estimate RVSP due to lack of TR jet. Pulmonic Valve * Pulmonic valve not well visualized. Aorta * Normally sized aortic root. Pericardium * The pericardium appears normal. IVC * The IVC is not well evaluated. Pulmonary Artery * Pulmonary artery not well visualized. Intake & Output 10/15/17 10/16/17 10/17/17 10/18/17 23:59 23:59 23:59 23:59 Intake Total 1220 / 1220 Output Total 2550 / 2550 Balance -1330 / -1330 Weight 152.4 kg Active Medications Acetaminophen (Tylenol) 500 mg PO Q6H PRN PRN Reason: Pain Stop: 04/18/18 17:34 Hydrocodone Bitart/Acetaminophen (Lima 5-325 Mg) 1 tab PO Q8H PRN PRN Reason: Pain Stop: 04/18/18 17:34 Albuterol/Ipratropium (Duoneb) 3 ml IH [id number] OFE Stop: 04/18/18 20:01 Last Admin: 10/18/17 12:12 Dose: 3 ml Aspirin (Aspirin) 81 mg PO DAILY OFE Stop: 04/18/18 22:01 Last Admin: 10/18/17 08:49 Dose: 81 mg Atorvastatin Calcium (Lipitor) 20 mg PO HS OFE Stop: 04/18/18 21:01 Last Admin: 10/17/17 21:07 Dose: 20 mg Dextrose/Water (Dextrose 50% (Syg)) 25 ml IVP AD PRN PRN Reason: Hypoglycemia Stop: 04/18/18 18:24 Diphenhydramine HCl (Benadryl) 25 mg IVP Q8H PRN PRN Reason: Itching Stop: 04/18/18 19:42 Last Admin: 10/17/17 22:31 Dose: 25 mg Docusate Sodium (Colace) 100 mg PO BID PRN; Protocol PRN Reason: Constipation Stop: 04/18/18 17:34 Fluoxetine HCl (Prozac) 10 mg PO QAM OFE Stop: 04/19/18 09:01 Last Admin: 10/18/17 08:50 Dose: 10 mg Furosemide (Lasix) 40 mg IVP BID OFE Stop: 04/18/18 21:01 Last Admin: 10/18/17 08:50 Dose: 40 mg Glucagon (Glucagen) 1 mg IM ONCE PRN PRN Reason: Hypoglycemia Stop: 04/18/18 18:24 Glucose (Gluctose) 15 gm PO ONCE PRN PRN Reason: Hypoglycemia Stop: 04/18/18 18:24 Glucose (Gluctose) 30 gm PO ONCE PRN PRN Reason: Hypoglycemia Stop: 04/18/18 18:24 Heparin Sodium (Porcine) (Heparin) 5,000 unit SQ Q12HCO OFE Stop: 04/18/18 18:31 Last Admin: 10/18/17 06:23 Dose: 5,000 unit Dextrose (Dextrose 5%) 1,000 mls @ 100 mls/hr IVC .Q10H PRN PRN Reason: HYPOGLYCEMIA Stop: 04/18/18 18:24 Aztreonam 1,000 mg/ Sterile (Water) 10 mls @ 150 mls/hr IVPB Q8HR OFE Stop: 04/19/18 00:01 Last Infusion: 10/18/17 09:02 Dose: Infused Vancomycin HCl 1,750 mg/ (Sodium Chloride) 500 mls @ 334.014 mls/hr IVPB Q12H OFE PRN Reason: Protocol Stop: 04/19/18 21:01 Levothyroxine Sodium (Synthroid) 88 mcg PO DAILY OFE Stop: 04/19/18 09:01 Last Admin: 10/18/17 08:49 Dose: 88 mcg Lisinopril (Zestril) 40 mg PO DAILY OFE PRN Reason: Protocol Stop: 04/19/18 09:01 Last Admin: 10/18/17 08:50 Dose: 40 mg Melatonin (Melatonin) 9 mg PO HS OFE Stop: 04/18/18 21:01 Last Admin: 10/17/17 21:07 Dose: 9 mg Miconazole (Aloe Arnot Antifungal Ointment) 1 appl TP DAILY OFE Stop: 04/19/18 09:01 Last Admin: 10/18/17 09:50 Dose: 1 appl Naloxone HCl (Narcan) 0.4 mg IVP Q2MIN PRN PRN Reason: SEE COMMENTS Stop: 04/18/18 18:25 Nystatin (Nystop) 1 appl TP TID OFE Stop: 04/18/18 21:01 Last Admin: 10/18/17 09:50 Dose: 1 appl Omeprazole (Prilosec) 40 mg PO QPM OFE Stop: 04/18/18 18:01 Last Admin: 10/17/17 21:07 Dose: 40 mg Pharmacy Profile Note (Patient Taking Own Medication) 1 each PO QPM OFE Stop: 04/18/18 18:01 Last Admin: 10/17/17 21:02 Dose: Not Given Pharmacy Profile Note (Patient Taking Own Medication) 1 each PO DAILY OFE Stop: 04/19/18 09:01 Last Admin: 10/18/17 08:58 Dose: Not Given Pregabalin (Lyrica) 75 mg PO BID OFE Stop: 04/18/18 21:01 Last Admin: 10/18/17 08:49 Dose: 75 mg Tramadol HCl (Ultram) 50 mg PO Q4H PRN PRN Reason: Pain Stop: 04/18/18 17:34 Vitamin D (Vitamin D) 1,000 unit PO QAM OFE PRN Reason: Protocol Stop: 04/19/18 09:01 Last Admin: 10/18/17 08:50 Dose: 1,000 unit - Imaging and Cardiology Chest Xray: report reviewed Cardiac cath: report reviewed - EKG Interpretation EKG results cardiology: personally reviewed (ECG showed junctional rhythm with PVCs), other (Telemetry reviewed with average heart rate 56, currently sinus bradycardia in the 50s. Rhythm strips reviewed with occasional junctional rhythm and junctional with PVCs) Consult Discharge Plan - Plan Instructions: Extended Spectrum Beta Lactamase (GEN) Referrals: Lang Jarvis DO [Primary Care Provider] - (PATIENT IS FROM [facility] THEY MAKE THE APPOINTMENTS FOR THE PATIENT) <Angelica Gallego - Last Filed: 10/19/17 16:29> Date of Encounter: 10/19/17 - Attending Attestation I examined this patient and my medical decision-making was reviewed with the WORKERS COMPENSATION ADMINISTRATOR. I agree with the documented findings, disposition and treatment plan as described. Assessment and Plan Discussion w patient/family: The assessment and plan as outlined above was discussed with the patient and/or family members who expressed understanding and agreement. All questions were answered. Thank you for involving us in the care of your patient. Please call with any questions. History of Present Illness History of present illness: Ms. Feliciano is a 62 year old female All Systems Review: A 10-system review of systems was performed and is negative for pertinent findings except as documented above in the HPI. Physical Examination Vital Signs, Last 4 Hours Resp Pulse Ox 10/19/17 15:49 22 96 Results 10/19/17 09:10 10/19/17 09:10 Lab Results 10/19/17 10/19/17 09:10 09:10 WBC 8.7 Hgb 10.3 L Hct 33.7 L Plt Count 199 Sodium 128 L Potassium 4.3 Chloride 93 L Carbon Dioxide 27 BUN 28 H Creatinine 1.12 Glucose 264 H Calcium 8.8
[2017-10-18] MEDS ORDERED: *HR* Dextrose 50 % in Water (Syg) 50 ML SYRINGE IVC ONE (14:59)
[2017-10-18] MEDS ORDERED: *HR* Atropine Sulfate 1 MG/10 ML SYRINGE IV ONE (14:59)
--- NOTE | 2017-10-18 17:44 | Electrocardiograph Report ---
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
[2017-10-18] MEDS: Melatonin 3 MG TABLET PO SCH (21:30)
[2017-10-19] MEDS: Ipratropium/Albuterol Neb 3 ML IH SCH ×7 (00:09→22:41)
[2017-10-19] MEDS: *HR* Heparin 5,000 UNIT/ML VIAL SQ SCH ×2 (05:26→18:51)
[2017-10-19] MEDS: Febuxostat [Uloric] 80 MG PO SCH (08:06)
[2017-10-19] MEDS: FLUoxetine HCl 10 MG CAPSULE PO SCH (08:23)
[2017-10-19] MEDS: Pregabalin 75 MG CAPSULE PO SCH ×2 (08:23→20:33)
[2017-10-19] MEDS: Aspirin 81 MG TAB.CHEW PO SCH (08:23)
[2017-10-19] MEDS: Cholecalciferol (D-3) 1,000 UNIT TABLET PO SCH (08:23)
[2017-10-19] MEDS: Furosemide 40 MG/4 ML VIAL IVP SCH ×2 (08:23→20:33)
[2017-10-19] MEDS: Aztreonam 1,000 MG in Water for inj. (sterile) 20 ML 10 ML IVPB SCH (08:23)
[2017-10-19] MEDS: Lisinopril 20 MG TABLET PO SCH (08:24)
[2017-10-19] MEDS: Nystatin POWDER 30 GM BOTTLE TP SCH ×2 (09:15→16:05)
[2017-10-19] MEDS: Miconazole 2% ointment 114 GM TUBE TP SCH (09:15)
[2017-10-19 09:36] LABS: Basophils % 0.5 %; Eosinophils # 0.4 K/mcL (0.0-0.6); Eosinophils % 4.5 %; Hematocrit 33.7 % (35.3-44.9); Hemoglobin 10.3 g/dL (11.5-15.4); Immature Granulocytes % 0.5 % (0-4); Mean Corpuscular HGB Conc 30.6 g/dL (31.6-35.5); Mean Corpuscular Hemoglobin 26.5 pg (28.0-33.3); Mean Corpuscular Volume 86.9 fL (83.0-100.0); Mean Platelet Volume 10.5 fL (9.4-12.4); Monocytes # 0.6 K/mcL (0.0-1.3); Monocytes % 7.3 %; Neutrophils # 6.6 K/mcL (1.6-8.9); Platelet Count 199 K/mcL (140-400); Red Blood Count 3.88 M/mcL (3.82-4.97); Red Cell Distribution Width 17.2 % (11.5-14.5); Segmented Neutrophils % 76.2 %
[2017-10-19 09:46] LABS: Calcium 8.8 mg/dL (8.6-10.3); Potassium 4.3 mEq/L (3.5-5.1)
[2017-10-19 12:11] LABS: ABG Base Excess 3 mEq/L (-2 to 3); ABG HCO3 29 mEq/L (21-27); ABG Oxygen Saturation 95 % (95-98); ABG PCO2 54 mmHg (35-45); ABG PH 7.34 pH Units (7.32-7.45); ABG PO2 81 mmHg (85-104); ABG TCO2 31 mEq/L (20-26)
--- NOTE | 2017-10-19 14:33 | Electrocardiograph Report ---
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
[2017-10-19] MEDS: amLODIPine 5 MG TABLET PO SCH (15:42)
[2017-10-19] MEDS: Ertapenem 1,000 MG in Water for inj. (sterile) 20 ML 10 ML IVP SCH (15:43)
--- NOTE | 2017-10-19 16:24 | Cardiology Progress Note ---
Date of Encounter: 10/19/17 Time of Encounter: 16:20 Assessment and Plan (1) Symptomatic bradycardia Current Visit: Yes Status: Acute Per Cardiology: Junctional bradycardia noted on ECG and episodes of frequent PVCs. Off Toprol XL 50mg PO daily and amiodarone 200mg PO daily. Telemetry reviewed with average heart rate the past 24 hours to 57, SB. Currently sinus bradycardia in the 50s. Will obtain ECG. (2) Chest pain of uncertain etiology Current Visit: Yes Status: Acute Per Cardiology: Atypical chest pain symptoms occurring with deep inspiration and coughing. Troponins negative 3. Last heart catheterization February 2016 showed mid LAD 20-30 %, mid circumflex 30%, status post BMS to OM1 90% lesion, proximal RCA 20%. On asa and statin. BB on hold for bradycardia. Discussion w patient/family: The assessment and plan as outlined above was discussed with the patient who expressed understanding and agreement. All questions were answered. Thank you for involving us in the care of your patient. Please call with any questions. Subjective Principal diagnosis: Bradycardia Interval history: Denies any recurrence of chest pain, palpitations, dizziness. Denies any active bleeding. Objective Vital Signs, Last 4 Hours Resp Pulse Ox 10/19/17 15:49 22 96 Selected Entries 10/19/17 11:30 10/19/17 15:49 Temperature 97.5 F L Pulse Rate 57 Respiratory Rate 22 O2 Sat by Pulse Oximetry 96 Oxygen Flow Rate (LPM) 3 Oxygen Delivery Method Nasal Cannula General: Conversant, No Apparent Distress HEENT: Atraumatic, Normocephaly, Mucus Membranes Moist Neck: No JVD, Normal carotid pulses Cardiac: Reg Rate and Rhythm, Normal S1 and S2, No Murmur Lungs: No Wheeze, Rales, Rhonchi, Other (Mildly labored at rest, diminished throughout) Neuro: Alert and responsive, No focal deficits noted Abdomen: Soft, Non-Tender Extremities: Other (edema bilateral LE) Results 10/19/17 09:10 10/19/17 09:10 Lab Results 10/19/17 10/19/17 09:10 09:10 WBC 8.7 Hgb 10.3 L Hct 33.7 L Plt Count 199 Sodium 128 L Potassium 4.3 Chloride 93 L Carbon Dioxide 27 BUN 28 H Creatinine 1.12 Glucose 264 H Calcium 8.8 - EKG Interpretation EKG results cardiology: other (24 hr tele shows avg HR 57, SB, current sinus bradycardia in the 50s, occasional PVCs, no heart block noted) Consult Discharge Plan - Plan Instructions: Extended Spectrum Beta Lactamase (GEN) Referrals: Lang Jarvis DO [Primary Care Provider] - (PATIENT IS FROM [facility] THEY MAKE THE APPOINTMENTS FOR THE PATIENT)
--- NOTE | 2017-10-19 17:30 | Event Note ---
Date of Encounter: 10/19/17 Time of Encounter: 17:29 - Cardiology Event Note Discussed with Dr. Gallego. No indication for further testing or intervention. Out -pt f/u in 2 weeks. Cardiology will sign off.
--- NOTE | 2017-10-19 18:48 | Internal Med Progress Note ---
Date of Encounter: 10/19/17 Time of Encounter: 11:00 - Assessment and plan (1) Community acquired pneumonia Current Visit: Yes Status: Acute Assessment and plan: -Will start patient on ertapenem which will cover for ESBL acute cystitis as below Qualifiers: Laterality: unspecified laterality Qualified Code(s): J18.9 - Pneumonia, unspecified organism (2) COPD exacerbation Current Visit: Yes Status: Acute Assessment and plan: -Secondary to the above; continue to DuoNeb (3) UTI (urinary tract infection) Current Visit: Yes Status: Acute Assessment and plan: -Patient positive for ESBL and started her on ertapenem Qualifiers: Urinary tract infection type: acute cystitis Hematuria presence: without hematuria Qualified Code(s): N30.00 - Acute cystitis without hematuria (4) Symptomatic bradycardia Current Visit: Yes Status: Acute Assessment and plan: -Cardiology following and appreciate recommendations (5) DVT prophylaxis Current Visit: Yes Status: Acute Assessment and plan: -Subcutaneous heparin - Subjective Interval history: Patient found to be ESBL positive - Constitutional Vitals: Temp Pulse Resp BP Pulse Ox 98.5 F 60 22 142/62 96 10/19/17 15:00 10/19/17 15:00 10/19/17 15:49 10/19/17 15:00 10/19/17 15:49 General appearance: Present: cooperative, A&O X 3, morbidly obese, pleasant, no acute distress, answers questions appropriately - Respiratory Respiratory exam: Present: CTAB. Absent: accessory muscle use, rales, rhonchi, wheezes - Cardiovascular Cardiovascular exam: Present: RRR, +S1, +S2. Absent: diastolic murmur, gallop, rubs, systolic murmur Internal Medicine: Result - Labs CBC & Chem 7: 10/19/17 09:10 10/19/17 09:10 Labs: Short CBC 10/19/17 Range/Units 09:10 WBC 8.7 (4.3-11.1) K/mcL Hgb 10.3 L (11.5-15.4) g/dL Hct 33.7 L (35.3-44.9) % Plt Count 199 (140-400) K/mcL Neutrophils # 6.6 (1.6-8.9) K/mcL BMP 10/19/17 09:10 Sodium 128 L Potassium 4.3 Chloride 93 L Carbon Dioxide 27 BUN 28 H Creatinine 1.12 Glucose 264 H Calcium 8.8 - ABG Interpretation ABG results: ABG ABG pH 7.34 pH Units (7.32-7.45) 10/19/17 12:08 ABG pCO2 54 mmHg (35-45) H 10/19/17 12:08 ABG pO2 81 mmHg (85-104) L 10/19/17 12:08 ABG O2 Saturation 95 % (95-98) 10/19/17 12:08 PT/INR, D-dimer PT 13.4 Seconds (9.4-12.1) H 10/17/17 16:08 - Impressions Impressions Chest X-Ray 10/19/17 11:40 IMPRESSION: No significant interval change of a small right pleural effusion with adjacent airspace opacity. D/ / Marian Lucas MD / Marian Lucas MD Interpreting Provider: Marian Lucas MD Consult Discharge Plan - Plan Instructions: Extended Spectrum Beta Lactamase (GEN) Referrals: Lang Jarvis DO [Primary Care Provider] - (PATIENT IS FROM [facility] THEY MAKE THE APPOINTMENTS FOR THE PATIENT)
[2017-10-19] MEDS: Melatonin 3 MG TABLET PO SCH (20:33)
[2017-10-20] MEDS: Nystatin POWDER 30 GM BOTTLE TP SCH ×3 (00:33→11:45)
[2017-10-20] MEDS: Ipratropium/Albuterol Neb 3 ML IH SCH ×6 (04:39→23:24)
[2017-10-20] MEDS: *HR* Heparin 5,000 UNIT/ML VIAL SQ SCH ×2 (04:45→17:26)
[2017-10-20] MEDS: Cholecalciferol (D-3) 1,000 UNIT TABLET PO SCH (09:11)
[2017-10-20] MEDS: Furosemide 40 MG/4 ML VIAL IVP SCH ×2 (09:11→20:08)
[2017-10-20] MEDS: Lisinopril 20 MG TABLET PO SCH (09:11)
[2017-10-20] MEDS: Ertapenem 1,000 MG in Water for inj. (sterile) 20 ML 10 ML IVP SCH (09:11)
[2017-10-20] MEDS: FLUoxetine HCl 10 MG CAPSULE PO SCH (09:11)
[2017-10-20] MEDS: Aspirin 81 MG TAB.CHEW PO SCH (09:11)
[2017-10-20] MEDS: amLODIPine 5 MG TABLET PO SCH (09:11)
[2017-10-20] MEDS: Pregabalin 75 MG CAPSULE PO SCH ×2 (09:11→20:08)
[2017-10-20] MEDS: Miconazole 2% ointment 114 GM TUBE TP SCH (09:12)
[2017-10-20] MEDS: Febuxostat [Uloric] 80 MG PO SCH (09:12)
--- NOTE | 2017-10-20 11:37 | Electrocardiograph Report ---
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
[2017-10-20] MEDS ORDERED: INSULIN REGULAR SQ PRN (15:26)
--- NOTE | 2017-10-20 19:18 | Internal Med Progress Note ---
Date of Encounter: 10/20/17 Time of Encounter: 11:00 - Assessment and plan (1) Community acquired pneumonia Current Visit: Yes Status: Acute Assessment and plan: -Patient on ertapenem for ESBL acute cystitis as below Qualifiers: Laterality: unspecified laterality Qualified Code(s): J18.9 - Pneumonia, unspecified organism (2) COPD exacerbation Current Visit: Yes Status: Acute Assessment and plan: -Secondary to the above; continue to DuoNeb (3) UTI (urinary tract infection) Current Visit: Yes Status: Acute Assessment and plan: -Patient positive for ESBL and placed on ertapenem due to multiple drug allergies. Qualifiers: Urinary tract infection type: acute cystitis Hematuria presence: without hematuria Qualified Code(s): N30.00 - Acute cystitis without hematuria (4) Symptomatic bradycardia Current Visit: Yes Status: Acute Assessment and plan: -Cardiology recommendations for no further intervention but follow-up in 2 weeks as outpatient (5) DVT prophylaxis Current Visit: Yes Status: Acute Assessment and plan: -Subcutaneous heparin - Subjective Interval history: Patient found to be ESBL positive - Constitutional Vitals: Temp Pulse Resp BP Pulse Ox 98.5 F 61 16 165/50 95 10/20/17 15:34 10/20/17 15:34 10/20/17 16:17 10/20/17 15:34 10/20/17 16:17 General appearance: Present: cooperative, A&O X 3, morbidly obese, pleasant, no acute distress, answers questions appropriately - Respiratory Respiratory exam: Present: CTAB. Absent: accessory muscle use, rales, rhonchi, wheezes - Cardiovascular Cardiovascular exam: Present: RRR, +S1, +S2. Absent: diastolic murmur, gallop, rubs, systolic murmur Internal Medicine: Result - Labs CBC & Chem 7: 10/19/17 09:10 10/19/17 09:10 - ABG Interpretation ABG results: ABG ABG pH 7.34 pH Units (7.32-7.45) 10/19/17 12:08 ABG pCO2 54 mmHg (35-45) H 10/19/17 12:08 ABG pO2 81 mmHg (85-104) L 10/19/17 12:08 ABG O2 Saturation 95 % (95-98) 10/19/17 12:08 PT/INR, D-dimer PT 13.4 Seconds (9.4-12.1) H 10/17/17 16:08 Consult Discharge Plan - Plan Instructions: Extended Spectrum Beta Lactamase (GEN) Referrals: Lang Jarvis DO [Primary Care Provider] - (PATIENT IS FROM [facility] THEY MAKE THE APPOINTMENTS FOR THE PATIENT)
[2017-10-20] MEDS: Melatonin 3 MG TABLET PO SCH (20:08)
[2017-10-20] MEDS: Budesonide/Formoterol 160/4.5 MDI IH SCH (22:08)
[2017-10-21] MEDS: Ipratropium/Albuterol Neb 3 ML IH SCH ×6 (03:27→23:09)
[2017-10-21] MEDS: *HR* Heparin 5,000 UNIT/ML VIAL SQ SCH ×2 (05:59→18:40)
[2017-10-21] MEDS: Budesonide/Formoterol 160/4.5 MDI IH SCH ×2 (07:32→19:52)
[2017-10-21] MEDS: Lisinopril 20 MG TABLET PO SCH (08:49)
[2017-10-21] MEDS: FLUoxetine HCl 10 MG CAPSULE PO SCH (08:49)
[2017-10-21] MEDS: Pregabalin 75 MG CAPSULE PO SCH ×2 (08:50→21:22)
[2017-10-21] MEDS: amLODIPine 5 MG TABLET PO SCH (08:50)
[2017-10-21] MEDS: Aspirin 81 MG TAB.CHEW PO SCH (08:51)
[2017-10-21] MEDS: Cholecalciferol (D-3) 1,000 UNIT TABLET PO SCH (08:51)
[2017-10-21] MEDS: Furosemide 40 MG/4 ML VIAL IVP SCH (08:51)
[2017-10-21] MEDS: Ertapenem 1,000 MG in Water for inj. (sterile) 20 ML 10 ML IVP SCH (08:52)
[2017-10-21] MEDS: MICONAZOLE NITRATE TP SCH (09:34)
[2017-10-21] MEDS: Febuxostat [Uloric] 80 MG PO SCH (09:34)
[2017-10-21 10:30] LABS: Basophils % 0.4 %; Eosinophils # 0.4 K/mcL (0.0-0.6); Eosinophils % 4.3 %; Hematocrit 32.1 % (35.3-44.9); Hemoglobin 10.1 g/dL (11.5-15.4); Immature Granulocytes % 0.4 % (0-4); Lymphocytes # 0.8 K/mcL (0.6-4.6); Lymphocytes % 10.1 %; Mean Corpuscular HGB Conc 31.5 g/dL (31.6-35.5); Mean Corpuscular Volume 85.8 fL (83.0-100.0); Mean Platelet Volume 10.7 fL (9.4-12.4); Monocytes # 0.6 K/mcL (0.0-1.3); Monocytes % 7.3 %; Neutrophils # 6.3 K/mcL (1.6-8.9); Platelet Count 212 K/mcL (140-400); Red Blood Count 3.74 M/mcL (3.82-4.97); Segmented Neutrophils % 77.5 %
[2017-10-21 11:03] LABS: BUN/Creatinine Ratio 28 (6-26); Blood Urea Nitrogen 26 mg/dL (8-23); Calcium 9.3 mg/dL (8.6-10.3); Carbon Dioxide 26 mEq/L (23-29); Chloride 95 mEq/L (98-107); Glucose 79 mg/dL (70-105); Osmolality,Calculated 274 (280-300); Potassium 4.1 mEq/L (3.5-5.1); Sodium 130 mEq/L (136-145); eGFR For African Americans > 60 (> 60); eGFR For Non-African Americans > 60 (> 60)
--- NOTE | 2017-10-21 18:55 | Internal Med Progress Note ---
Date of Encounter: 10/21/17 Time of Encounter: 11:00 - Assessment and plan (1) Community acquired pneumonia Current Visit: Yes Status: Acute Assessment and plan: -Patient on ertapenem for ESBL acute cystitis as below Qualifiers: Laterality: unspecified laterality Qualified Code(s): J18.9 - Pneumonia, unspecified organism (2) COPD exacerbation Current Visit: Yes Status: Acute Assessment and plan: -Secondary to the above; continue to DuoNeb (3) UTI (urinary tract infection) Current Visit: Yes Status: Acute Assessment and plan: -Patient positive for ESBL and placed on ertapenem due to multiple drug allergies. Qualifiers: Urinary tract infection type: acute cystitis Hematuria presence: without hematuria Qualified Code(s): N30.00 - Acute cystitis without hematuria (4) Diastolic CHF, acute on chronic Current Visit: Yes Status: Acute Assessment and plan: -Dose of IV diuresis increased today for acute on chronic diastolic heart failure (5) Symptomatic bradycardia Current Visit: Yes Status: Acute Assessment and plan: -Cardiology recommendations for no further intervention but follow-up in 2 weeks as outpatient (6) DVT prophylaxis Current Visit: Yes Status: Acute Assessment and plan: -Subcutaneous heparin - Subjective Interval history: Patient found to be ESBL positive Dose of IV diuresis increased today for acute on chronic diastolic heart failure - Constitutional Vitals: Temp Pulse Resp BP Pulse Ox 98.9 F 69 20 166/57 92 10/21/17 17:14 10/21/17 17:14 10/21/17 17:14 10/21/17 17:14 10/21/17 17:14 General appearance: Present: cooperative, A&O X 3, morbidly obese, pleasant, no acute distress, answers questions appropriately - Cardiovascular Cardiovascular exam: Present: RRR, +S1, +S2. Absent: diastolic murmur, gallop, rubs, systolic murmur Internal Medicine: Result - Labs CBC & Chem 7: 10/21/17 10:01 10/21/17 10:01 Labs: Short CBC 10/21/17 Range/Units 10:01 WBC 8.1 (4.3-11.1) K/mcL Hgb 10.1 L (11.5-15.4) g/dL Hct 32.1 L (35.3-44.9) % Plt Count 212 (140-400) K/mcL Neutrophils # 6.3 (1.6-8.9) K/mcL BMP 10/21/17 10:01 Sodium 130 L Potassium 4.1 Chloride 95 L Carbon Dioxide 26 BUN 26 H Creatinine 0.92 Glucose 79 Calcium 9.3 - ABG Interpretation ABG results: ABG ABG pH 7.34 pH Units (7.32-7.45) 10/19/17 12:08 ABG pCO2 54 mmHg (35-45) H 10/19/17 12:08 ABG pO2 81 mmHg (85-104) L 10/19/17 12:08 ABG O2 Saturation 95 % (95-98) 10/19/17 12:08 PT/INR, D-dimer PT 13.4 Seconds (9.4-12.1) H 10/17/17 16:08 Consult Discharge Plan - Plan Instructions: Extended Spectrum Beta Lactamase (GEN) Referrals: Lang Jarvis DO [Primary Care Provider] - (PATIENT IS FROM [facility] THEY MAKE THE APPOINTMENTS FOR THE PATIENT)
[2017-10-21] MEDS ORDERED: Furosemide 20 MG/2 ML VIAL IVP SCH (21:00)
[2017-10-21] MEDS: Melatonin 3 MG TABLET PO SCH (21:22)
[2017-10-22] MEDS: Ipratropium/Albuterol Neb 3 ML IH SCH ×6 (03:59→23:23)
[2017-10-22] MEDS: *HR* Heparin 5,000 UNIT/ML VIAL SQ SCH ×2 (07:02→16:42)
[2017-10-22] MEDS: Budesonide/Formoterol 160/4.5 MDI IH SCH ×2 (07:25→20:12)
[2017-10-22] MEDS: amLODIPine 5 MG TABLET PO SCH (08:40)
[2017-10-22] MEDS: Pregabalin 75 MG CAPSULE PO SCH ×2 (08:40→19:57)
[2017-10-22] MEDS: Cholecalciferol (D-3) 1,000 UNIT TABLET PO SCH (08:40)
[2017-10-22] MEDS: FLUoxetine HCl 10 MG CAPSULE PO SCH (08:40)
[2017-10-22] MEDS: Aspirin 81 MG TAB.CHEW PO SCH (08:41)
[2017-10-22] MEDS: Lisinopril 20 MG TABLET PO SCH (08:41)
[2017-10-22] MEDS: MICONAZOLE NITRATE TP SCH (08:41)
[2017-10-22] MEDS: Ertapenem 1,000 MG in Water for inj. (sterile) 20 ML 10 ML IVP SCH (08:41)
[2017-10-22 10:04] LABS: Basophils % 0.4 %; Eosinophils # 0.4 K/mcL (0.0-0.6); Eosinophils % 5.7 %; Hematocrit 33.7 % (35.3-44.9); Hemoglobin 10.1 g/dL (11.5-15.4); Immature Granulocytes % 0.3 % (0-4); Lymphocytes # 0.9 K/mcL (0.6-4.6); Lymphocytes % 13.5 %; Mean Corpuscular Hemoglobin 26.2 pg (28.0-33.3); Mean Corpuscular Volume 87.3 fL (83.0-100.0); Mean Platelet Volume 10.8 fL (9.4-12.4); Monocytes # 0.6 K/mcL (0.0-1.3); Monocytes % 9.2 %; Neutrophils # 4.9 K/mcL (1.6-8.9); Platelet Count 205 K/mcL (140-400); Red Blood Count 3.86 M/mcL (3.82-4.97); Red Cell Distribution Width 17.1 % (11.5-14.5); Segmented Neutrophils % 70.9 %
[2017-10-22] MEDS: Furosemide 40 MG/4 ML VIAL IVP SCH ×2 (10:08→19:57)
[2017-10-22 11:03] LABS: BUN/Creatinine Ratio 28 (6-26); Blood Urea Nitrogen 25 mg/dL (8-23); Calcium 9.3 mg/dL (8.6-10.3); Carbon Dioxide 29 mEq/L (23-29); Chloride 96 mEq/L (98-107); Glucose 114 mg/dL (70-105); Osmolality,Calculated 281 (280-300); Potassium 3.9 mEq/L (3.5-5.1); Sodium 133 mEq/L (136-145); eGFR For African Americans > 60 (> 60); eGFR For Non-African Americans > 60 (> 60)
--- NOTE | 2017-10-22 18:44 | Internal Med Progress Note ---
Date of Encounter: 10/22/17 Time of Encounter: 11:00 - Assessment and plan (1) Community acquired pneumonia Current Visit: Yes Status: Acute Assessment and plan: -Patient on ertapenem for ESBL acute cystitis as below Qualifiers: Laterality: unspecified laterality Qualified Code(s): J18.9 - Pneumonia, unspecified organism (2) COPD exacerbation Current Visit: Yes Status: Acute Assessment and plan: -Secondary to the above; continue to DuoNeb (3) UTI (urinary tract infection) Current Visit: Yes Status: Acute Assessment and plan: -Patient positive for ESBL and placed on ertapenem due to multiple drug allergies. Qualifiers: Urinary tract infection type: acute cystitis Hematuria presence: without hematuria Qualified Code(s): N30.00 - Acute cystitis without hematuria (4) Diastolic CHF, acute on chronic Current Visit: Yes Status: Acute Assessment and plan: -Dose of IV diuresis increased today for acute on chronic diastolic heart failure (5) Symptomatic bradycardia Current Visit: Yes Status: Acute Assessment and plan: -Cardiology recommendations for no further intervention but follow-up in 2 weeks as outpatient (6) Lower extremity cellulitis Current Visit: Yes Status: Acute Assessment and plan: -Patient with increased erythema and warmth of the left lower extremity on ertapenem -Will add coverage for staph as well and start Bactrim Qualifiers: Laterality: left Qualified Code(s): L03.116 - Cellulitis of left lower limb (7) DVT prophylaxis Current Visit: Yes Status: Acute Assessment and plan: -Subcutaneous heparin - Subjective Interval history: Patient found to be ESBL positive Continue increased dose of IV diuresis increased for acute on chronic diastolic heart failure Patient reports that left lower leg cellulitis worsening - Constitutional Vitals: Temp Pulse Resp BP Pulse Ox 98.5 F 72 20 154/71 91 10/22/17 16:30 10/22/17 16:30 10/22/17 16:30 10/22/17 16:30 10/22/17 16:30 General appearance: Present: cooperative, A&O X 3, morbidly obese, pleasant, no acute distress, answers questions appropriately - Respiratory Respiratory exam: Present: CTAB. Absent: accessory muscle use, rales, rhonchi, wheezes - Cardiovascular Cardiovascular exam: Present: RRR, +S1, +S2. Absent: diastolic murmur, gallop, rubs, systolic murmur - Extremities Exam Extremities exam: Present: warm (Left lower extremity increased erythema) Internal Medicine: Result - Labs CBC & Chem 7: 10/22/17 09:26 10/22/17 09:26 Labs: Short CBC 10/22/17 Range/Units 09:26 WBC 6.9 (4.3-11.1) K/mcL Hgb 10.1 L (11.5-15.4) g/dL Hct 33.7 L (35.3-44.9) % Plt Count 205 (140-400) K/mcL Neutrophils # 4.9 (1.6-8.9) K/mcL BMP 10/22/17 09:26 Sodium 133 L Potassium 3.9 Chloride 96 L Carbon Dioxide 29 BUN 25 H Creatinine 0.90 Glucose 114 H Calcium 9.3 - ABG Interpretation ABG results: ABG ABG pH 7.34 pH Units (7.32-7.45) 10/19/17 12:08 ABG pCO2 54 mmHg (35-45) H 10/19/17 12:08 ABG pO2 81 mmHg (85-104) L 10/19/17 12:08 ABG O2 Saturation 95 % (95-98) 10/19/17 12:08 PT/INR, D-dimer PT 13.4 Seconds (9.4-12.1) H 10/17/17 16:08 Consult Discharge Plan - Plan Instructions: Extended Spectrum Beta Lactamase (GEN) Referrals: Lang Jarvis DO [Primary Care Provider] - (PATIENT IS FROM [facility] THEY MAKE THE APPOINTMENTS FOR THE PATIENT)
[2017-10-22] MEDS ORDERED: Sulfamethoxazole/Trimeth DS 1 EACH TABLET PO SCH (21:00)
[2017-10-22] MEDS: Melatonin 3 MG TABLET PO SCH (22:34)
[2017-10-23] MEDS: Ipratropium/Albuterol Neb 3 ML IH SCH ×5 (04:03→20:04)
[2017-10-23] MEDS: *HR* Heparin 5,000 UNIT/ML VIAL SQ SCH ×2 (06:41→18:18)
[2017-10-23] MEDS: Budesonide/Formoterol 160/4.5 MDI IH SCH ×2 (07:47→20:04)
[2017-10-23] MEDS: Cholecalciferol (D-3) 1,000 UNIT TABLET PO SCH (08:56)
[2017-10-23] MEDS: FLUoxetine HCl 10 MG CAPSULE PO SCH (08:56)
[2017-10-23] MEDS: Furosemide 40 MG/4 ML VIAL IVP SCH ×2 (08:56→21:06)
[2017-10-23] MEDS: Aspirin 81 MG TAB.CHEW PO SCH (08:56)
[2017-10-23] MEDS: Pregabalin 75 MG CAPSULE PO SCH ×2 (08:56→21:07)
[2017-10-23] MEDS: Ertapenem 1,000 MG in Water for inj. (sterile) 20 ML 10 ML IVP SCH (08:56)
[2017-10-23] MEDS: Lisinopril 20 MG TABLET PO SCH (08:56)
[2017-10-23] MEDS: amLODIPine 5 MG TABLET PO SCH (08:56)
[2017-10-23] MEDS: MICONAZOLE NITRATE TP SCH (08:58)
[2017-10-23 09:23] LABS: Basophils % 0.3 %; Eosinophils # 0.4 K/mcL (0.0-0.6); Eosinophils % 5.2 %; Hemoglobin 9.8 g/dL (11.5-15.4); Immature Granulocytes % 0.4 % (0-4); Lymphocytes # 1.2 K/mcL (0.6-4.6); Mean Corpuscular HGB Conc 29.7 g/dL (31.6-35.5); Mean Corpuscular Hemoglobin 26.3 pg (28.0-33.3); Mean Corpuscular Volume 88.7 fL (83.0-100.0); Mean Platelet Volume 10.3 fL (9.4-12.4); Monocytes # 0.7 K/mcL (0.0-1.3); Monocytes % 10.2 %; Neutrophils # 4.6 K/mcL (1.6-8.9); Platelet Count 204 K/mcL (140-400); Red Blood Count 3.72 M/mcL (3.82-4.97); Red Cell Distribution Width 17.2 % (11.5-14.5); Segmented Neutrophils % 66.9 %
[2017-10-23 09:45] LABS: BUN/Creatinine Ratio 26 (6-26); Blood Urea Nitrogen 26 mg/dL (8-23); Calcium 9.2 mg/dL (8.6-10.3); Carbon Dioxide 30 mEq/L (23-29); Chloride 97 mEq/L (98-107); Glucose 162 mg/dL (70-105); Osmolality,Calculated 288 (280-300); Potassium 4.1 mEq/L (3.5-5.1); Sodium 135 mEq/L (136-145); eGFR For African Americans > 60 (> 60); eGFR For Non-African Americans 56 (> 60)
--- NOTE | 2017-10-23 17:04 | Internal Med Progress Note ---
Date of Encounter: 10/23/17 Time of Encounter: 11:00 - Assessment and plan (1) Community acquired pneumonia Current Visit: Yes Status: Acute Assessment and plan: -Patient on ertapenem for ESBL acute cystitis as below Qualifiers: Laterality: unspecified laterality Qualified Code(s): J18.9 - Pneumonia, unspecified organism (2) COPD exacerbation Current Visit: Yes Status: Acute Assessment and plan: -Secondary to the above; continue to DuoNeb (3) UTI (urinary tract infection) Current Visit: Yes Status: Acute Assessment and plan: -Patient positive for ESBL and placed on ertapenem due to multiple drug allergies. Qualifiers: Urinary tract infection type: acute cystitis Hematuria presence: without hematuria Qualified Code(s): N30.00 - Acute cystitis without hematuria (4) Diastolic CHF, acute on chronic Current Visit: Yes Status: Acute Assessment and plan: -Dose of IV diuresis increased today for acute on chronic diastolic heart failure (5) Symptomatic bradycardia Current Visit: Yes Status: Acute Assessment and plan: -Cardiology recommendations for no further intervention but follow-up in 2 weeks as outpatient (6) Lower extremity cellulitis Current Visit: Yes Status: Acute Assessment and plan: -Patient with increased erythema and warmth of the left lower extremity on ertapenem -Will add coverage for staph as well and Vancomycin Qualifiers: Laterality: left Qualified Code(s): L03.116 - Cellulitis of left lower limb (7) DVT prophylaxis Current Visit: Yes Status: Acute Assessment and plan: -Subcutaneous heparin - Subjective Interval history: Patient found to be ESBL positive Continue increased dose of IV diuresis increased for acute on chronic diastolic heart failure Patient reports that left lower leg cellulitis worsening - Constitutional Vitals: Temp Pulse Resp BP Pulse Ox 98.4 F 66 16 167/64 97 10/23/17 11:44 10/23/17 11:44 10/23/17 16:09 10/23/17 11:44 10/23/17 16:09 General appearance: Present: cooperative, A&O X 3, morbidly obese, pleasant, no acute distress, answers questions appropriately - Respiratory Respiratory exam: Present: CTAB. Absent: accessory muscle use, rales, rhonchi, wheezes - Cardiovascular Cardiovascular exam: Present: RRR, +S1, +S2. Absent: diastolic murmur, gallop, rubs, systolic murmur - Extremities Exam Extremities exam: Present: calf tenderness, cyanotic, warm (Left lower extremity cellulitis ), radial pulses palpable and symmetrical. Absent: pedal edema Internal Medicine: Result - Labs CBC & Chem 7: 10/23/17 09:13 10/23/17 09:13 Labs: Short CBC 10/23/17 Range/Units 09:13 WBC 6.9 (4.3-11.1) K/mcL Hgb 9.8 L (11.5-15.4) g/dL Hct 33.0 L (35.3-44.9) % Plt Count 204 (140-400) K/mcL Neutrophils # 4.6 (1.6-8.9) K/mcL BMP 10/23/17 09:13 Sodium 135 L Potassium 4.1 Chloride 97 L Carbon Dioxide 30 H BUN 26 H Creatinine 1.00 Glucose 162 H Calcium 9.2 - ABG Interpretation ABG results: ABG ABG pH 7.34 pH Units (7.32-7.45) 10/19/17 12:08 ABG pCO2 54 mmHg (35-45) H 10/19/17 12:08 ABG pO2 81 mmHg (85-104) L 10/19/17 12:08 ABG O2 Saturation 95 % (95-98) 10/19/17 12:08 PT/INR, D-dimer PT 13.4 Seconds (9.4-12.1) H 10/17/17 16:08 Consult Discharge Plan - Plan Instructions: Extended Spectrum Beta Lactamase (GEN) Referrals: Lang Jarvis DO [Primary Care Provider] - (PATIENT IS FROM [facility] THEY MAKE THE APPOINTMENTS FOR THE PATIENT)
[2017-10-23] MEDS: Melatonin 3 MG TABLET PO SCH (21:06)
[2017-10-24] MEDS: Ipratropium/Albuterol Neb 3 ML IH SCH ×6 (00:13→20:17)
[2017-10-24] MEDS: *HR* Heparin 5,000 UNIT/ML VIAL SQ SCH ×2 (06:23→17:43)
[2017-10-24] MEDS: Budesonide/Formoterol 160/4.5 MDI IH SCH ×2 (07:44→20:17)
[2017-10-24 09:03] LABS: Basophils % 0.4 %; Eosinophils # 0.4 K/mcL (0.0-0.6); Eosinophils % 5.3 %; Hematocrit 36.9 % (35.3-44.9); Hemoglobin 11.1 g/dL (11.5-15.4); Immature Granulocytes % 0.4 % (0-4); Lymphocytes % 13.7 %; Mean Corpuscular HGB Conc 30.1 g/dL (31.6-35.5); Mean Corpuscular Hemoglobin 26.7 pg (28.0-33.3); Mean Corpuscular Volume 88.7 fL (83.0-100.0); Mean Platelet Volume 10.2 fL (9.4-12.4); Monocytes # 0.7 K/mcL (0.0-1.3); Monocytes % 9.9 %; Neutrophils # 5.3 K/mcL (1.6-8.9); Platelet Count 216 K/mcL (140-400); Red Blood Count 4.16 M/mcL (3.82-4.97); Red Cell Distribution Width 17.2 % (11.5-14.5); Segmented Neutrophils % 70.3 %
[2017-10-24] MEDS: Aspirin 81 MG TAB.CHEW PO SCH (09:23)
[2017-10-24] MEDS: amLODIPine 5 MG TABLET PO SCH (09:23)
[2017-10-24] MEDS: Pregabalin 75 MG CAPSULE PO SCH ×2 (09:23→21:02)
[2017-10-24] MEDS: Lisinopril 20 MG TABLET PO SCH (09:23)
[2017-10-24] MEDS: FLUoxetine HCl 10 MG CAPSULE PO SCH (09:23)
[2017-10-24] MEDS: Cholecalciferol (D-3) 1,000 UNIT TABLET PO SCH (09:23)
[2017-10-24] MEDS: MICONAZOLE NITRATE TP SCH (09:24)
[2017-10-24 11:08] LABS: BUN/Creatinine Ratio 27 (6-26); Blood Urea Nitrogen 27 mg/dL (8-23); Carbon Dioxide 31 mEq/L (23-29); Chloride 98 mEq/L (98-107); Glucose 159 mg/dL (70-105); Osmolality,Calculated 290 (280-300); Potassium 4.3 mEq/L (3.5-5.1); Sodium 136 mEq/L (136-145); eGFR For African Americans > 60 (> 60); eGFR For Non-African Americans 56 (> 60)
[2017-10-24] MEDS: Furosemide 40 MG/4 ML VIAL IVP SCH (14:22)
[2017-10-24] MEDS: Ertapenem 1,000 MG in Water for inj. (sterile) 20 ML 10 ML IVP SCH (14:22)
--- NOTE | 2017-10-24 18:01 | Internal Med Progress Note ---
Date of Encounter: 10/24/17 Time of Encounter: 11:00 - Assessment and plan (1) Community acquired pneumonia Current Visit: Yes Status: Acute Assessment and plan: -Patient on ertapenem for ESBL acute cystitis as below Qualifiers: Laterality: unspecified laterality Qualified Code(s): J18.9 - Pneumonia, unspecified organism (2) COPD exacerbation Current Visit: Yes Status: Acute Assessment and plan: -Secondary to the above; continue to DuoNeb (3) UTI (urinary tract infection) Current Visit: Yes Status: Acute Assessment and plan: -Patient positive for ESBL and placed on ertapenem due to multiple drug allergies. Qualifiers: Urinary tract infection type: acute cystitis Hematuria presence: without hematuria Qualified Code(s): N30.00 - Acute cystitis without hematuria (4) Diastolic CHF, acute on chronic Current Visit: Yes Status: Acute Assessment and plan: -Dose of IV diuresis increased today for acute on chronic diastolic heart failure (5) Symptomatic bradycardia Current Visit: Yes Status: Acute Assessment and plan: -Cardiology recommendations for no further intervention but follow-up in 2 weeks as outpatient (6) Lower extremity cellulitis Current Visit: Yes Status: Acute Assessment and plan: -Patient with increased erythema and warmth of the left lower extremity on ertapenem -Will add coverage for staph as well and Vancomycin -Doppler negative for DVT and vancomycin restarted Qualifiers: Laterality: left Qualified Code(s): L03.116 - Cellulitis of left lower limb (7) DVT prophylaxis Current Visit: Yes Status: Acute Assessment and plan: -Subcutaneous heparin - Subjective Interval history: Patient found to be ESBL positive Continue increased dose of IV diuresis increased for acute on chronic diastolic heart failure Patient reports that left lower leg cellulitis worsening; Doppler negative for DVT and vancomycin restarted - Constitutional Vitals: Temp Pulse Resp BP Pulse Ox 98.8 F 70 18 166/51 98 10/24/17 11:15 10/24/17 15:37 10/24/17 15:59 10/24/17 15:37 10/24/17 15:59 General appearance: Present: cooperative, A&O X 3, morbidly obese, pleasant, no acute distress, answers questions appropriately - Respiratory Respiratory exam: Present: CTAB. Absent: accessory muscle use, rales, rhonchi, wheezes - Cardiovascular Cardiovascular exam: Present: RRR, +S1, +S2. Absent: diastolic murmur, gallop, rubs, systolic murmur Internal Medicine: Result - Labs CBC & Chem 7: 10/24/17 08:51 10/24/17 10:15 Labs: Short CBC 10/24/17 Range/Units 08:51 WBC 7.5 (4.3-11.1) K/mcL Hgb 11.1 L (11.5-15.4) g/dL Hct 36.9 (35.3-44.9) % Plt Count 216 (140-400) K/mcL Neutrophils # 5.3 (1.6-8.9) K/mcL BMP 10/24/17 10:15 Sodium 136 Potassium 4.3 Chloride 98 Carbon Dioxide 31 H BUN 27 H Creatinine 1.01 Glucose 159 H Calcium 9.0 - ABG Interpretation ABG results: ABG ABG pH 7.34 pH Units (7.32-7.45) 10/19/17 12:08 ABG pCO2 54 mmHg (35-45) H 10/19/17 12:08 ABG pO2 81 mmHg (85-104) L 10/19/17 12:08 ABG O2 Saturation 95 % (95-98) 10/19/17 12:08 PT/INR, D-dimer PT 13.4 Seconds (9.4-12.1) H 10/17/17 16:08 Consult Discharge Plan - Plan Instructions: Extended Spectrum Beta Lactamase (GEN) Referrals: Lang Jarvis DO [Primary Care Provider] - (PATIENT IS FROM [facility] THEY MAKE THE APPOINTMENTS FOR THE PATIENT)
[2017-10-24] MEDS: Melatonin 3 MG TABLET PO SCH (21:03)
[2017-10-25] MEDS: Furosemide 40 MG/4 ML VIAL IVP SCH ×2 (00:03→08:25)
[2017-10-25] MEDS: Ipratropium/Albuterol Neb 3 ML IH SCH ×6 (00:15→20:11)
[2017-10-25] MEDS: *HR* Heparin 5,000 UNIT/ML VIAL SQ SCH ×2 (06:14→17:21)
[2017-10-25] MEDS: Budesonide/Formoterol 160/4.5 MDI IH SCH ×2 (07:52→20:11)
[2017-10-25] MEDS: FLUoxetine HCl 10 MG CAPSULE PO SCH (08:24)
[2017-10-25] MEDS: amLODIPine 5 MG TABLET PO SCH (08:25)
[2017-10-25] MEDS: Lisinopril 20 MG TABLET PO SCH (08:25)
[2017-10-25] MEDS: Cholecalciferol (D-3) 1,000 UNIT TABLET PO SCH (08:25)
[2017-10-25] MEDS: Pregabalin 75 MG CAPSULE PO SCH ×2 (08:25→20:50)
[2017-10-25] MEDS: Aspirin 81 MG TAB.CHEW PO SCH (08:25)
[2017-10-25] MEDS: Ertapenem 1,000 MG in Water for inj. (sterile) 20 ML 10 ML IVP SCH (08:26)
[2017-10-25] MEDS: MICONAZOLE NITRATE TP SCH (08:28)
[2017-10-25 08:56] LABS: Basophils % 0.4 %; Eosinophils # 0.5 K/mcL (0.0-0.6); Eosinophils % 6.4 %; Hemoglobin 10.3 g/dL (11.5-15.4); Immature Granulocytes % 0.3 % (0-4); Lymphocytes # 1.3 K/mcL (0.6-4.6); Lymphocytes % 16.9 %; Mean Corpuscular HGB Conc 30.3 g/dL (31.6-35.5); Mean Corpuscular Hemoglobin 26.9 pg (28.0-33.3); Mean Corpuscular Volume 88.8 fL (83.0-100.0); Mean Platelet Volume 10.4 fL (9.4-12.4); Monocytes # 0.7 K/mcL (0.0-1.3); Monocytes % 9.6 %; Platelet Count 232 K/mcL (140-400); Red Blood Count 3.83 M/mcL (3.82-4.97); Red Cell Distribution Width 17.4 % (11.5-14.5); Segmented Neutrophils % 66.4 %
[2017-10-25 09:10] LABS: BUN/Creatinine Ratio 26 (6-26); Blood Urea Nitrogen 28 mg/dL (8-23); Carbon Dioxide 30 mEq/L (23-29); Chloride 97 mEq/L (98-107); Glucose 123 mg/dL (70-105); Osmolality,Calculated 287 (280-300); Potassium 4.3 mEq/L (3.5-5.1); Sodium 135 mEq/L (136-145); eGFR For African Americans > 60 (> 60); eGFR For Non-African Americans 51 (> 60)
--- NOTE | 2017-10-25 13:20 | Infectious Disease Consult ---
Date of Encounter: 10/25/17 Time of Encounter: 10:40 Assessment and Plan (1) Pneumonia Status: Acute Assessment and plan: Patient does report shortness of breath and cough CXR performed on 10/17 demonstrated right basilar airspace disease CXR performed 10/19 redeomstrated same airspace disease Causative organism currently unknown Will obtain strep/legionella antigen Obtain Flu PCR will reimage with CXR Obtain a sputum culture if able Continue current antibiotics with Ertapenem and Vancomycin goal vanco level 10 Qualifiers: Pneumonia type: due to unspecified organism Laterality: right Lung location: middle lobe of lung Qualified Code(s): J18.1 - Lobar pneumonia, unspecified organism (2) UTI (urinary tract infection) Status: Acute Assessment and plan: Found to have ESBL e. coli on urine culture possible colonization Currently on day 6 of ertapenem Continue ertapenem Qualifiers: Urinary tract infection type: acute cystitis Hematuria presence: without hematuria Qualified Code(s): N30.00 - Acute cystitis without hematuria (3) Cellulitis of left lower extremity Status: Acute Assessment and plan: Cellulitis of LLE without sign of DVT On vancomycin and ertapenem currently continue current antibiotics will consider PO antibiotics on discharge (4) Penicillin allergy Status: Acute Assessment and plan: Patient has list of significant allergies to different antibiotics. She is unsure as to what the reaction is to many of them, or just doesn't know. Her extensive list of allergies certainly makes finding appropriate antibiotics difficult Recommend allergy consult to better evaluate for potentially real allergies (5) COPD (chronic obstructive pulmonary disease) Status: Chronic Assessment and plan: Continued management per primary team Qualifiers: COPD type: unspecified COPD Qualified Code(s): J44.9 - Chronic obstructive pulmonary disease, unspecified (6) Diabetes mellitus type 2 with complications Status: Chronic Assessment and plan: Continued management per primary team Qualifiers: Diabetes mellitus joint terminal attack controller insulin use: with care home use Qualified Code( s): E11.8 - Type 2 diabetes mellitus with unspecified complications; Z79.4 - 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) 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 of insulin; Z79.4 - nursing home (current) use of insulin; Z79.4 - 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 Feliciano is a 62yo female that w/ PMHx of CHF, COPD, DM, HTN and renal disease that presented to [facility] on 10/17 due to progressive dyspnea and chest pain. ID was consulted on 10/25 due to concerns for lower extremity cellulitis. She deoes report that for 3 weeks she had been having dyspnea and a dry cough. In the ER, the patient reported of sharp stabbing pain on the L side of her chest that worsened on inspiration. The patient had an episode of bradycardia w / HR in 20s that was treated w/ atropine. CXR revealed basilar atelectasis vs pneumonia and the patient was started on Vancomycin and Aztreonam. Urine cultures at presentation grew ESBL E-coli and her Aztreonam was replaced by ertapenem. She had been seen by cardiology on 10/18, an echocardiogram was performed, and made they adjustments to her medications before signing off on . Her primary team continued to treat her for pneumonia and ESBL UTI with Ertapenem and Vancomycin. On 10/22 the patient reported increased erythema, edema, and warmth of her left lower extremity, despite being on day 5 on Ertapenem. A LE venous duplex was performed on 10/24 was negative for DVT. During my exam today, the patient states she is feeling better, however, the cellulitis has stayed the same. She does not believe it has spread further from before. She admits to minor pain, moderate amount of swelling, warmth and erythema. She has had cellulitis in the past but never this high up on the leg. Patient denies fevers, but does admit to minor chills with occasional diaphoresis. She denies any oral lesions or oral thrush. She denies chest pain, syncope or palpitations. She also denies SOB, wheezing, and cough. She denies constipation, diarrhea, abdominal pain, n/v. She denies hematuria, dysuria but does admit to bladder feeling full causing her to pee frequently. When asked the patient about her medical allergies, she does not remember the reaction to most of the drugs, but believes to be hives. She has not had recent travel outside of [place], no sick contacts at home but does have 2 puppies at home which the patient states are up to date on their shots. CC: Leno Rodriguez Past Med Surg Social Fam HX - Past Medical History Medical history: atrial fibrillation, CHF, COPD, coronary artery disease, DVT, diabetes, GI bleed, hypertension, renal disease, thyroid disease Psychiatric history: anxiety, depression - Past Surgical History Surgical History: angioplasty/stent, other - Social History Smoking Status: Former smoker Smokeless Tobacco Status: No Alcohol use: none Drug use: none - Family History Mother Family Member Ethnicity: Non- Living Status: Still Living Hx Family Cardiac Disorders: Yes Hx Family Neurologic Disorders: Yes ("mini strokes") Brother Living Status: Hx Family Cancer: Yes (colon cancer) Son Living Status: Still Living Hx Family GI Disorders: Yes (high grade dysplasia polyps) Father Adopted: No Family Member Ethnicity: Non- Living Status: Hx Family Cardiac Disorders: Yes Hx Family Respiratory Disorders: Yes (COPD) Hx Family Cancer: No Hx Family GI Disorders: No Hx Family Endocrine Disorder: No Hx Family Neuromuscular Disorders: No Hx Family Neurologic Disorders: No Hx Family HEENT Disorders: No Hx Family Autoimmune Disorders: No Infectious Disease-CN:Meds Albuterol Neb [Proventil Neb] 2.5 mg IH Q6H PRN 02/07/16 [History] Albuterol Sulfate [Proventil Hfa] 2 puff IH Q4H PRN 02/07/16 [History] FLUoxetine HCl [Prozac] 10 mg PO QAM 02/07/16 [History] Insulin Regular U-500 [HumuLIN R U-500] 0 unit .ROUTE PRN PRN 02/07/16 [History ] Pregabalin [Lyrica] 75 mg PO BID 02/07/16 [History] Melatonin 10 mg PO HS #30 capsule 02/11/16 [Rx] B12/Levomefolate Calcium/B-6 [Foltx Tablet] 1 tab PO QPM 02/29/16 [History] Budesonide/Formoterol 160/4.5 [Symbicort 160/4.5] 2 puff IH BIDR 30 Days inhaler 03/03/16 [Rx] Cholecalciferol (Vitamin D3) [Dialyvite Vitamin D] 5,000 unit PO QAM 03/27/16 [ History] Omeprazole 40 mg PO QPM 03/27/16 [History] Amiodarone [Cordarone] 200 mg PO DAILY #30 tablet 04/11/16 [Rx] Acetaminophen [Tylenol] 500 mg PO Q6HR PRN 06/12/16 [History] Oxygen 2 l NS AD 06/12/16 [History] Febuxostat [Uloric] 80 mg PO DAILY 09/10/16 [History] Levothyroxine [Synthroid] 88 mcg PO DAILY 09/10/16 [History] HYDROcodone/Acet 5/325 mg [[place] 5-325 mg] 1 tab PO Q8H PRN 10/09/16 [History] Furosemide [Lasix] 40 mg PO BIDDIURETIC #60 tablet 10/16/16 [Rx] Lisinopril [Zestril] 40 mg PO DAILY #30 tablet 10/16/16 [Rx] Metoprolol XL (24 HR) Succ [Toprol Xl] 50 mg PO QAM #0 10/16/16 [Rx] Nystatin POWDER [Nystop] 1 appl TP TID #2 bottle 10/16/16 [Rx] amLODIPine [Norvasc] 10 mg PO DAILY #30 tablet 10/16/16 [Rx] Atorvastatin Calcium [Lipitor] 20 mg PO HS 01/02/17 [History] Tramadol HCl [Ultram] 50 mg PO Q4H PRN 01/02/17 [History] Docusate [Colace] 100 mg PO BID PRN #60 capsule 01/03/17 [Rx] Miconazole Nitrate [Miconazorb AF] 1 appl TP DAILY 10/20/17 [History] 3 Allergy/AdvReac Type Severity Reaction Status Date / Time ciprofloxacin [From Cipro] Allergy Severe Anaphylaxis Verified 08/05/16 14:01 clarithromycin [From Biaxin] Allergy Severe Hives Verified 09/10/16 20:30 clonidine Allergy Severe Anaphylaxis Verified 08/05/16 14:01 levofloxacin [From Levaquin] Allergy Severe Anaphylaxis Verified 08/05/16 14:01 Tetracycline Allergy Severe Itching Verified 09/10/16 20:30 tiotropium Allergy Severe Blurry Verified 09/10/16 20:30 [From Spiriva with Vision HandiHaler] Warfarin Allergy Severe Difficulty Verified 09/10/16 20:30 Breathing Penicillins Allergy Mild Itching Verified 10/20/17 02:28 acarbose Allergy Blurry Verified 09/10/16 20:30 Vision Cefaclor Allergy Anaphylaxis Verified 04/09/16 08:47 codeine Allergy Rash Verified 09/10/16 20:30 Hydralazine Allergy Hives Verified 09/10/16 20:30 sulfamethoxazole Allergy Hives Verified 10/22/17 20:36 [From Bactrim] trimethoprim [From Bactrim] Allergy Hives Verified 10/22/17 20:36 vancomycin Allergy Itching Verified 10/20/17 02:28 atorvastatin [From Lipitor] AdvReac Muscle Pain Verified 09/10/16 20:30 fenofibrate [From Tricor] AdvReac Muscle Pain Verified 09/10/16 20:30 rivaroxaban [From Xarelto] AdvReac Gastrointestinal Verified 09/10/16 16:35 Upset Review of systems: Gen: Denies fever, reports mild chills, denies weakness, denies fatigue CV: Reports occasional, but improved chest pain, denies palpitations Resp: Denies shortness of breath, reports coughing yellow to green sputum, denies wheeze GI: Denies nausea, denies vomiting, denies abdominal pain, denies constipation, denies diarrhea, denies hematochezia, denies melena Neuro: Denies headache, denies confusion, denies focal weakness Skin: Denies bruising, denies rash : Denies flank pain, denies dysuria, denies hematuria Exam - Constitutional Vitals: Temp Pulse Resp BP Pulse Ox 98.3 F 67 18 147/47 98 10/25/17 11:32 10/25/17 11:32 10/25/17 11:32 10/25/17 11:32 10/25/17 11:32 - Additional findings Additional findings: General: Cooperative, pleasant, no acute distress, alert and oriented 3, answers questions appropriately HEENT: Normocephalic, atraumatic, neck supple, trachea midline, Conjunctiva pink , sclera anicteric, oral mucosa moist, no orophargeal erythema or exudates, no oral ulcers seen Respiratory: No accessory muscle usage, auscultation somewhat limited by patient body habitus, faint expiratory wheeze present Cardiovascular: Regular rate and rhythm, S1 and S2 present, no murmurs/rubs/ gallops/clicks appreciated GI/abdominal: Nondistended, nontender, soft, normal bowel sounds, no peritoneal signs Extremities: Lower extremity pulses palpable and symmetrical, right lower extremity 1+ pitted edema, left lower extremity 2+ pitted edema with area of erythema from the ankle to mid-calf, slightly warm Neurological: Alert and oriented 3, no facial droop, no focal deficits Infectious Disease CN: Results - Labs CBC & Chem 7: 10/25/17 08:31 10/25/17 08:31 Consult Discharge Plan - Plan Instructions: Extended Spectrum Beta Lactamase (GEN) Referrals: Lang Jarvis DO [Primary Care Provider] - (PATIENT IS FROM [facility] THEY MAKE THE APPOINTMENTS FOR THE PATIENT) - Attending Attestation I examined this patient and my medical decision-making was reviewed with the Resident Physician. I agree with the documented findings, disposition and treatment plan as described except to the extent set forth below. This is an addendum to original report dictated by resident physician. Please refer to residents note for full detail. Briefly patient is a 62-year-old woman with past medical history mentioned below including COPD, CHF, diabetes mellitus type 2 and chronic kidney disease stage III who apparently came in to [facility] on 10/17/2017 complaining of progressive dyspnea and chest pain and cough. Patient states about 2-3 weeks prior to admission she started having symptoms of dyspnea at rest and chest pain with palpitation pleuritic stabbing on the left side. Patient came to the emergency room for evaluation. NAD patient was bradycardic, she had hypertensive urgency, patient was afebrile with WBC of 10.4 with 80% differential. Patient had a UA done which was contaminated but was positive for pyuria and leukocyte esterase and negative for nitrites. Cultures from the urine revealed Escherichia coli that was ESBL. Patient also had a chest x-ray which showed bibasilar infiltrate concerning for pneumonia versus atelectasis. Patient was started on aztreonam and vancomycin. A shunt was then switched to vancomycin and ertapenem. On 10/22/2017 patient noted some erythema on her left lower extremity. Looks like it was cellulitis warm to touch painful and very erythematosus. We were asked to evaluate the patients make further recommendations. Currently patient laying in bed and appears comfortable no acute distress. Her physical exam is remarkable for decreased breast sounds at the bases. She does have some wheezing. Abdomen is soft nontender positive bowel sounds. She has no urinary symptoms. Patient has significant erythema of the left lower extremity that has been demarcated with a pen. Warm to touch. Assessment and plan: #1 pneumonia #2 questionable urinary tract infection #3 cellulitis of the left lower extremity causative organism not known #4 penicillin allergies and multiple other allergies. At this point agree with the current antibiotic including vancomycin and ertapenem. Goal vancomycin trough around 10-15. More like 10 we will notify pharmacy. As for the asymptomatic bacteriuria we will treat the pneumonia and the urine anyways for now, but on discharge will probably switch the patient to come initially with doxycycline and Macrobid. Preferably give her 1 or 2 doses of doxycycline prior to discharge because its mentioned as allergies I think she will tolerate it. Also might benefit from consulting allergy and immunology to see if the patient has true penicillin allergies. Monitor labs and for drug toxicity including the kidney function
--- NOTE | 2017-10-25 18:24 | Internal Med Progress Note ---
Date of Encounter: 10/25/17 Time of Encounter: 11:00 - Assessment and plan (1) Community acquired pneumonia Current Visit: Yes Status: Acute Assessment and plan: -Patient on ertapenem for ESBL acute cystitis as below Qualifiers: Laterality: unspecified laterality Qualified Code(s): J18.9 - Pneumonia, unspecified organism (2) Lower extremity cellulitis Current Visit: Yes Status: Acute Assessment and plan: -Patient with increased erythema and warmth of the left lower extremity on ertapenem -Will add coverage for staph as well and Vancomycin -Doppler negative for DVT and vancomycin restarted -ID consulted and appreciate recommendations Qualifiers: Laterality: left Qualified Code(s): L03.116 - Cellulitis of left lower limb (3) UTI (urinary tract infection) Current Visit: Yes Status: Acute Assessment and plan: -Patient positive for ESBL and placed on ertapenem due to multiple drug allergies. Qualifiers: Urinary tract infection type: acute cystitis Hematuria presence: without hematuria Qualified Code(s): N30.00 - Acute cystitis without hematuria (4) COPD exacerbation Current Visit: Yes Status: Acute Assessment and plan: -Secondary to the above; continue to DuoNeb (5) Diastolic CHF, acute on chronic Current Visit: Yes Status: Acute Assessment and plan: -Dose of IV diuresis increased today for acute on chronic diastolic heart failure (6) Symptomatic bradycardia Current Visit: Yes Status: Acute Assessment and plan: -Cardiology recommendations for no further intervention but follow-up in 2 weeks as outpatient (7) DVT prophylaxis Current Visit: Yes Status: Acute Assessment and plan: -Subcutaneous heparin - Subjective Interval history: Patient being treated for ESBL UTI and pneumonia in addition to acute on chronic diastolic heart failure Patient now with worsening left lower leg cellulitis worsening; Doppler negative for DVT and vancomycin restarted - Constitutional Vitals: Temp Pulse Resp BP Pulse Ox 98.7 F 96 18 152/43 97 10/25/17 16:49 10/25/17 16:49 10/25/17 16:49 10/25/17 16:49 10/25/17 16:49 General appearance: Present: cooperative, A&O X 3, morbidly obese, pleasant, no acute distress, answers questions appropriately - Respiratory Respiratory exam: Present: CTAB. Absent: accessory muscle use, rales, rhonchi, wheezes - Cardiovascular Cardiovascular exam: Present: RRR, +S1, +S2. Absent: diastolic murmur, gallop, rubs, systolic murmur - Expanded Lower Extremities Exam Lower Leg exam: Present: swelling, tenderness Ankle exam: Present: swelling - Skin Skin exam: Present: erythema (Lower extremity cellulitis) Internal Medicine: Result - Labs CBC & Chem 7: 10/25/17 08:31 10/25/17 08:31 Labs: Short CBC 10/25/17 Range/Units 08:31 WBC 7.5 (4.3-11.1) K/mcL Hgb 10.3 L (11.5-15.4) g/dL Hct 34.0 L (35.3-44.9) % Plt Count 232 (140-400) K/mcL Neutrophils # 5.0 (1.6-8.9) K/mcL BMP 10/25/17 08:31 Sodium 135 L Potassium 4.3 Chloride 97 L Carbon Dioxide 30 H BUN 28 H Creatinine 1.08 Glucose 123 H Calcium 9.0 - ABG Interpretation ABG results: ABG ABG pH 7.34 pH Units (7.32-7.45) 10/19/17 12:08 ABG pCO2 54 mmHg (35-45) H 10/19/17 12:08 ABG pO2 81 mmHg (85-104) L 10/19/17 12:08 ABG O2 Saturation 95 % (95-98) 10/19/17 12:08 PT/INR, D-dimer PT 13.4 Seconds (9.4-12.1) H 10/17/17 16:08 Consult Discharge Plan - Plan Instructions: Extended Spectrum Beta Lactamase (GEN) Referrals: Lang Jarvis DO [Primary Care Provider] - (PATIENT IS FROM [facility] THEY MAKE THE APPOINTMENTS FOR THE PATIENT)
[2017-10-25] MEDS: Melatonin 3 MG TABLET PO SCH (20:50)
[2017-10-26] MEDS: Ipratropium/Albuterol Neb 3 ML IH SCH ×7 (00:05→23:52)
[2017-10-26] MEDS: *HR* Heparin 5,000 UNIT/ML VIAL SQ SCH ×2 (05:59→18:14)
[2017-10-26 06:46] LABS: Influenza A PCR Negative (Negative); Influenza B PCR Negative (Negative)
[2017-10-26] MEDS: Budesonide/Formoterol 160/4.5 MDI IH SCH ×2 (07:56→19:28)
[2017-10-26] MEDS: Ertapenem 1,000 MG in Water for inj. (sterile) 20 ML 10 ML IVP SCH (08:38)
[2017-10-26] MEDS: Furosemide 40 MG TABLET PO SCH ×2 (08:39→18:15)
[2017-10-26] MEDS: Aspirin 81 MG TAB.CHEW PO SCH (08:39)
[2017-10-26] MEDS: Lisinopril 20 MG TABLET PO SCH (08:39)
[2017-10-26] MEDS: amLODIPine 5 MG TABLET PO SCH (08:39)
[2017-10-26] MEDS: Cholecalciferol (D-3) 1,000 UNIT TABLET PO SCH (08:39)
[2017-10-26] MEDS: FLUoxetine HCl 10 MG CAPSULE PO SCH (08:39)
[2017-10-26] MEDS: Pregabalin 75 MG CAPSULE PO SCH ×2 (08:39→21:35)
[2017-10-26] MEDS: MICONAZOLE NITRATE TP SCH (08:40)
--- NOTE | 2017-10-26 09:53 | Infectious Disease Progress No ---
Date of Encounter: 10/26/17 Time of Encounter: 07:20 - Assessment and Plan (1) Pneumonia Current Visit: Yes Status: Acute Patient reports improvement shortness of breath and cough, but states she still requires oxygen to prevent dyspnea CXR performed 10/17 demonstrated right basilar airspace disease CXR performed 10/19 redeomstrated same airspace disease CXR performed 10/25 showed interval resolution of right basilar infiltrate Causative organism currently unknown Flu PCR negative Will obtain strep/legionella antigen Obtain a sputum culture if able Continue current antibiotics with Ertapenem and Vancomycin goal vanco level 10 We will probably switch to doxycycline and Macrobid on discharge, with 1 or 2 doses doxycycline prior to discharge because of her potential allergy. Patient would likely benefit from consult from allergy and immunology to assess patient multiple allergies Qualifiers: Pneumonia type: due to unspecified organism Laterality: right Lung location: middle lobe of lung Qualified Code(s): J18.1 - Lobar pneumonia, unspecified organism (2) UTI (urinary tract infection) Current Visit: Yes Status: Acute Found to have ESBL e. coli on urine culture possible colonization Currently on day 7 of ertapenem Continue ertapenem Likely be switched to doxycycline Macrobid upon discharge, patient only 1-2 doses of doxycycline prior to discharge due to listed allergy Qualifiers: Urinary tract infection type: acute cystitis Hematuria presence: without hematuria Qualified Code(s): N30.00 - Acute cystitis without hematuria (3) Cellulitis of left lower extremity Current Visit: No Status: Acute Cellulitis of LLE without sign of DVT On vancomycin and ertapenem currently continue current antibiotics will consider doxycycline and Macrobid on discharge as above (4) Penicillin allergy Current Visit: Yes Status: Acute Patient has list of significant allergies to different antibiotics. She is unsure as to what the reaction is to many of them, or just doesn't know. 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: with lobsterman use Qualified Code( s): E11.8 - Type 2 diabetes mellitus with unspecified complications; Z79.4 - terminal manager (current) use of insulin; Z79.4 - senior care (current) use of insulin; Z79.4 - terminal manager (current) use of insulin; Z79.4 - terminal manager (current) use of insulin (7) Atrial fibrillation Current Visit: No Status: Chronic Continued management per primary team Qualifiers: Atrial fibrillation type: chronic Qualified Code(s): I48.2 - Chronic atrial fibrillation - Subjective Interval history: Patient reports continue dyspnea when she has her oxygen removed, the states she does not her palm all is in place. She does report the occasional chill without fever or diaphoresis. She also states she has some continued, though lessened, pain in her left leg. Vitals have been stable and no leukocytosis seen. Infect Dis PN-Objective Data - Labs CBC & Chem 7: 10/27/17 09:09 10/27/17 09:09 Labs: Laboratory Results - last 24 hr 10/25/17 10/25/17 10/25/17 07:27 11:34 16:47 POC Glucose 58 158 H 167 H Vancomycin Trough Influenza Type A (PCR) Influenza Type B (PCR) 10/25/17 10/26/17 17:14 06:05 POC Glucose Vancomycin Trough 18.4 Influenza Type A (PCR) Negative Influenza Type B (PCR) Negative Cultures: Serology 10/26/17 Range/Units 06:05 Influenza Type A (PCR) Negative (Negative) Influenza Type B (PCR) Negative (Negative) - Impressions Impressions Chest X-Ray 10/25/17 19:53 IMPRESSION: No acute cardiopulmonary disease. Interval resolution of right basilar infiltrate. D/ / Zenon Ortiz MD / Zenon Ortiz MD Interpreting Provider: Zenon Ortiz MD Exam - Constitutional Vitals: Temp Pulse Resp BP Pulse Ox 97.9 F 68 16 146/68 95 10/26/17 07:10 10/26/17 07:10 10/26/17 07:58 10/26/17 07:10 10/26/17 07:58 - Additional findings Additional findings: General: Cooperative, pleasant, no acute distress, alert and oriented 3, answers questions appropriately HEENT: Normocephalic, atraumatic, Conjunctiva pink, sclera anicteric, oral mucosa moist, no orophargeal erythema or exudates Respiratory: No accessory muscle usage, auscultation somewhat limited by patient body habitus, faint expiratory wheeze present Cardiovascular: Regular rate and rhythm, S1 and S2 present, no murmurs/rubs/ gallops/clicks appreciated GI/abdominal: Nondistended, nontender, soft, normal bowel sounds, no peritoneal signs Extremities: Lower extremity pulses palpable and symmetrical, right lower extremity 1+ pitted edema, left lower extremity 2+ pitted edema with area of erythema from the ankle to mid-calf, slightly warm Neurological: Alert and oriented 3, no facial droop, no focal deficits Consult Discharge Plan - Plan Instructions: Extended Spectrum Beta Lactamase (GEN) Referrals: Lang Jarvis DO [Primary Care Provider] - 11/01/17 8:30 am ( ) - Attending Attestation I examined this patient and my medical decision-making was reviewed with the Resident Physician. I agree with the documented findings, disposition and treatment plan as described except to the extent set forth below.
--- NOTE | 2017-10-26 15:45 | Internal Med Progress Note ---
Date of Encounter: 10/26/17 Time of Encounter: 15:42 - Assessment and plan (1) Community acquired pneumonia Current Visit: Yes Status: Acute Assessment and plan: on ertapenem for ESBL acute cystitis as below. Cont vanco. ID Following Qualifiers: Laterality: unspecified laterality Qualified Code(s): J18.9 - Pneumonia, unspecified organism (2) UTI (urinary tract infection) Current Visit: Yes Status: Acute Assessment and plan: -Patient positive for ESBL and placed on ertapenem due to multiple drug allergies. ID following Qualifiers: Urinary tract infection type: acute cystitis Hematuria presence: without hematuria Qualified Code(s): N30.00 - Acute cystitis without hematuria (3) Cellulitis of left lower extremity Current Visit: No Status: Acute Assessment and plan: Cellulitis of LLE without sign of DVT. Cont vancomycin and ertapenem. ID following and considering doxycycline and Macrobid on discharge (4) COPD exacerbation Current Visit: Yes Status: Acute Assessment and plan: -Secondary to the above; continue to DuoNeb (5) Diastolic CHF, acute on chronic Current Visit: Yes Status: Acute Assessment and plan: per hx. with lower extremity edema on exam but does not appear overtly overloaded. C one-time dose IV Lasix on 10/25. Continue home diuretics. Daily weights, strict I's and O's. (6) Symptomatic bradycardia Current Visit: Yes Status: Acute Assessment and plan: junctional bradycardia noted on ECG and episodes of frequent PVCs. Not on julian blocking agents. Cardiology recommendations for no further intervention but follow-up in 2 weeks as outpatient (7) DVT prophylaxis Current Visit: No Status: Acute - Subjective Interval history: Seen and examined at beside; patient is new to me. Information obtained from chart review and patient report. There was some shortness of breath but overall improved. Feels redness and swelling to left lower extremity is improving. Nonproductive cough. No fevers or chills overnight. - Constitutional Vitals: Temp Pulse Resp BP Pulse Ox 98.2 F 65 16 145/65 92 10/26/17 11:49 10/26/17 11:49 10/26/17 11:49 10/26/17 11:49 10/26/17 11:49 General appearance: Present: cooperative, A&O X 3, morbidly obese, pleasant, no acute distress, answers questions appropriately - Head Head exam: Present: atraumatic, normocephalic - Eye Eye exam: Present: PERRL, conjuntiva pink, sclera anicteric Pupils: Present: PERRL - Neck Neck exam general surgery: Present: supple, trachea midline. Absent: lymphadenopathy - Respiratory Respiratory exam: Present: CTAB. Absent: accessory muscle use, rales, rhonchi, wheezes - Cardiovascular Cardiovascular exam: Present: RRR, +S1, +S2. Absent: diastolic murmur, gallop, rubs, systolic murmur - GI/Abdominal GI/Abdominal exam: Present: normal bowel sounds, soft, no peritoneal signs. Absent: distended, tenderness - Extremities Exam Extremities exam: Present: warm, radial pulses palpable and symmetrical. Absent : calf tenderness, cyanotic, pedal edema - Neurological Exam Neurological exam: Present: CN II-XII intact, oriented X3, no focal deficits. Absent: pronater drift, facial droop, speech deficit - Skin Skin exam: Present: dry, intact Internal Medicine: Result - Labs CBC & Chem 7: 10/25/17 08:31 10/25/17 08:31 - ABG Interpretation ABG results: ABG ABG pH 7.34 pH Units (7.32-7.45) 10/19/17 12:08 ABG pCO2 54 mmHg (35-45) H 10/19/17 12:08 ABG pO2 81 mmHg (85-104) L 10/19/17 12:08 ABG O2 Saturation 95 % (95-98) 10/19/17 12:08 PT/INR, D-dimer PT 13.4 Seconds (9.4-12.1) H 10/17/17 16:08 - Impressions Impressions Chest X-Ray 10/25/17 19:53 IMPRESSION: No acute cardiopulmonary disease. Interval resolution of right basilar infiltrate. D/ / Zenon Ortiz MD / Zenon Ortiz MD Interpreting Provider: Zenon Ortiz MD Consult Discharge Plan - Plan Instructions: Extended Spectrum Beta Lactamase (GEN) Referrals: Lang Jarvis DO [Primary Care Provider] - 11/01/17 8:30 am ( )
[2017-10-26] MEDS: Melatonin 3 MG TABLET PO SCH (21:35)
[2017-10-26] MEDS: Nystatin POWDER 30 GM BOTTLE TP SCH (21:35)
[2017-10-27] MEDS: Ipratropium/Albuterol Neb 3 ML IH SCH ×6 (04:40→23:26)
[2017-10-27] MEDS: *HR* Heparin 5,000 UNIT/ML VIAL SQ SCH ×2 (06:38→17:37)
[2017-10-27] MEDS: Budesonide/Formoterol 160/4.5 MDI IH SCH ×2 (07:27→20:20)
[2017-10-27] MEDS: MICONAZOLE NITRATE TP SCH (08:01)
[2017-10-27] MEDS: Lisinopril 20 MG TABLET PO SCH (08:31)
[2017-10-27] MEDS: Pregabalin 75 MG CAPSULE PO SCH ×2 (08:31→20:03)
[2017-10-27] MEDS: FLUoxetine HCl 10 MG CAPSULE PO SCH (08:31)
[2017-10-27] MEDS: Furosemide 40 MG TABLET PO SCH ×2 (08:31→17:37)
[2017-10-27] MEDS: Cholecalciferol (D-3) 1,000 UNIT TABLET PO SCH (08:31)
[2017-10-27] MEDS: Nystatin POWDER 30 GM BOTTLE TP SCH ×2 (08:31→20:06)
[2017-10-27] MEDS: amLODIPine 5 MG TABLET PO SCH (08:31)
[2017-10-27] MEDS: Aspirin 81 MG TAB.CHEW PO SCH (08:31)
[2017-10-27] MEDS: Ertapenem 1,000 MG in Water for inj. (sterile) 20 ML 10 ML IVP SCH (08:31)
[2017-10-27 09:25] LABS: Hematocrit 32.5 % (35.3-44.9); Hemoglobin 9.7 g/dL (11.5-15.4); Mean Corpuscular HGB Conc 29.8 g/dL (31.6-35.5); Mean Corpuscular Hemoglobin 26.6 pg (28.0-33.3); Mean Platelet Volume 10.2 fL (9.4-12.4); Platelet Count 250 K/mcL (140-400); Red Blood Count 3.65 M/mcL (3.82-4.97)
[2017-10-27 09:41] LABS: BUN/Creatinine Ratio 25 (6-26); Blood Urea Nitrogen 26 mg/dL (8-23); Calcium 8.9 mg/dL (8.6-10.3); Carbon Dioxide 31 mEq/L (23-29); Chloride 99 mEq/L (98-107); Glucose 159 mg/dL (70-105); Osmolality,Calculated 292 (280-300); Potassium 4.4 mEq/L (3.5-5.1); Sodium 137 mEq/L (136-145); eGFR For African Americans > 60 (> 60); eGFR For Non-African Americans 53 (> 60)
--- NOTE | 2017-10-27 14:20 | Internal Med Progress Note ---
Date of Encounter: 10/27/17 Time of Encounter: 14:19 - Assessment and plan (1) Community acquired pneumonia Current Visit: Yes Status: Acute Qualifiers: Laterality: unspecified laterality Qualified Code(s): J18.9 - Pneumonia, unspecified organism (2) UTI (urinary tract infection) Current Visit: Yes Status: Acute Qualifiers: Urinary tract infection type: acute cystitis Hematuria presence: without hematuria Qualified Code(s): N30.00 - Acute cystitis without hematuria (3) Cellulitis of left lower extremity Current Visit: No Status: Acute (4) COPD exacerbation Current Visit: Yes Status: Acute (5) Diastolic CHF, acute on chronic Current Visit: Yes Status: Acute (6) Symptomatic bradycardia Current Visit: Yes Status: Acute (7) DVT prophylaxis Current Visit: No Status: Acute - Subjective Interval history: Seen and examined at beside. She is resting in bed with both eyes close. - Constitutional Vitals: Temp Pulse Resp BP Pulse Ox 98.7 F 68 18 154/63 93 10/27/17 11:33 10/27/17 11:33 10/27/17 11:33 10/27/17 11:33 10/27/17 11:33 General appearance: Present: cooperative, A&O X 3, morbidly obese, pleasant, no acute distress, answers questions appropriately Internal Medicine: Result - Labs CBC & Chem 7: 10/27/17 09:09 10/27/17 09:09 Labs: Short CBC 10/27/17 Range/Units 09:09 WBC 7.6 (4.3-11.1) K/mcL Hgb 9.7 L (11.5-15.4) g/dL Hct 32.5 L (35.3-44.9) % Plt Count 250 (140-400) K/mcL BMP 10/27/17 09:09 Sodium 137 Potassium 4.4 Chloride 99 Carbon Dioxide 31 H BUN 26 H Creatinine 1.06 Glucose 159 H Calcium 8.9 - ABG Interpretation ABG results: ABG ABG pH 7.34 pH Units (7.32-7.45) 10/19/17 12:08 ABG pCO2 54 mmHg (35-45) H 10/19/17 12:08 ABG pO2 81 mmHg (85-104) L 10/19/17 12:08 ABG O2 Saturation 95 % (95-98) 10/19/17 12:08 PT/INR, D-dimer PT 13.4 Seconds (9.4-12.1) H 10/17/17 16:08 Consult Discharge Plan - Plan Instructions: Extended Spectrum Beta Lactamase (GEN) Referrals: Lang Jarvis DO [Primary Care Provider] - 11/01/17 8:30 am ( )
--- NOTE | 2017-10-27 14:43 | Infectious Disease Progress No ---
Date of Encounter: 10/27/17 Time of Encounter: 14:40 - Assessment and Plan (1) UTI (urinary tract infection) Current Visit: Yes Status: Acute Causative organism: ESBL E. coli. True infection vs. colonization vs. ASB. Continue Ertapenem 1 gram IV daily. Duration of treatment depends on the clinical picture. May consider switching to PO Macrobid on discharge as the patient does not recall what type of allergy she has to the medication. We may give her a couple of doses here before discharge to see how she does with the medication. Qualifiers: Urinary tract infection type: acute cystitis Hematuria presence: without hematuria Qualified Code(s): N30.00 - Acute cystitis without hematuria (2) Pneumonia Current Visit: Yes Status: Acute Causative organism unclear. Patient reports improvement shortness of breath and cough, but states she still requires oxygen to prevent dyspnea. CXR performed 10/17 demonstrated right basilar airspace disease. CXR performed 10/19 re-demonstrated same airspace disease. CXR performed 10/25 showed interval resolution of right basilar infiltrate. Flu PCR negative, but could be other viral illness. S. pneumo and Legionella UAT pending. Send sputum for culture if the patient is able to provide an adequate specimen. Continue Ertapenem 1 gram IV daily. Continue Vancomycin IV. Pharmacy to dose. Goal trough ~15. Monitor renal function and for drug toxicity and dose-adjust antibiotics. Duration of treatment depends on the clinical picture, but likely 10 day. May consider switching to doxycycline when ready for discharge with 1-2 doses given in the hospital since the patient does not recall the nature of her allergy to this medication and we can supervise her to make sure she does not have a reaction. Qualifiers: Pneumonia type: due to unspecified organism Laterality: right Lung location: middle lobe of lung Qualified Code(s): J18.1 - Lobar pneumonia, unspecified organism (3) Cellulitis of left lower extremity Current Visit: No Status: Acute Location: LLE. Causative organism unclear. DVT study negative. Additional imaging of the LLE not done, but the patient reports that she thinks it is getting better. Continue Vancomycin IV. Pharmacy to dose. Goal trough ~15. Continue Ertapenem 1 gram IV daily. Duration of treatment depends on the clinical picture. Monitor renal function and for drug toxicity and dose-adjust antibiotics. (4) Penicillin allergy Current Visit: Yes Status: Acute Patient has list of significant allergies to different antibiotics. She is unsure as to what the reaction is to many of them, or just doesn't know. Her extensive list of allergies certainly makes finding appropriate antibiotics difficult. Recommend allergy consult to better evaluate for potentially real allergies. (5) Atrial fibrillation Current Visit: No Status: Chronic Continued management per primary team. Qualifiers: Atrial fibrillation type: chronic Qualified Code(s): I48.2 - Chronic atrial fibrillation (6) COPD (chronic obstructive pulmonary disease) Current Visit: No Status: Chronic Continue management per primary team. Qualifiers: COPD type: unspecified COPD Qualified Code(s): J44.9 - Chronic obstructive pulmonary disease, unspecified (7) Diabetes mellitus type 2 with complications Current Visit: No Status: Chronic Continued management per primary team. Qualifiers: Diabetes mellitus group home insulin use: with group home use Qualified Code( s): E11.8 - Type 2 diabetes mellitus with unspecified complications; Z79.4 - halfway (current) use of insulin; Z79.4 - technician terminal and repeater (current) use of insulin; Z79.4 - halfway (current) use of insulin; Z79.4 - halfway (current) use of insulin - Subjective Interval history: Patient seen and examined. No acute events noted overnight. Patient states that overall she feels okay today. Denies fevers, chills, or rigors. Denies chest pain, but states she has dyspnea on exertion and a persistent cough that is productive of green/yellow/white sputum. Denies nausea, vomiting, diarrhea, or constipation. Denies urinary complaints. Reports pain in the left leg persists, but is better and states she thinks the redness is improving. Denies oral thrush or new skin lesions. Infect Dis PN-Objective Data - Labs CBC & Chem 7: 10/27/17 09:09 10/27/17 09:09 Labs: Laboratory Results - last 24 hr 10/25/17 10/26/17 10/26/17 20:34 07:04 07:06 WBC RBC Hgb Hct MCV MCH MCHC RDW Plt Count MPV Sodium Potassium Chloride Carbon Dioxide BUN Creatinine Est GFR ( Amer) Est GFR (Non-Af Amer) BUN/Creatinine Ratio Glucose POC Glucose 191 H 45 L* 41 L* Calculated Osmolality Calcium 10/26/17 10/26/17 10/26/17 11:46 15:53 20:27 WBC RBC Hgb Hct MCV MCH MCHC RDW Plt Count MPV Sodium Potassium Chloride Carbon Dioxide BUN Creatinine Est GFR ( Amer) Est GFR (Non-Af Amer) BUN/Creatinine Ratio Glucose POC Glucose 128 H 164 H 129 H Calculated Osmolality Calcium 10/27/17 10/27/17 09:09 09:09 WBC 7.6 RBC 3.65 L Hgb 9.7 L Hct 32.5 L MCV 89.0 MCH 26.6 L MCHC 29.8 L RDW 17.0 H Plt Count 250 MPV 10.2 Sodium 137 Potassium 4.4 Chloride 99 Carbon Dioxide 31 H BUN 26 H Creatinine 1.06 Est GFR ( Amer) > 60 Est GFR (Non-Af Amer) 53 L BUN/Creatinine Ratio 25 Glucose 159 H POC Glucose Calculated Osmolality 292 Calcium 8.9 Cultures: Serology 10/26/17 Range/Units 06:05 Influenza Type A (PCR) Negative (Negative) Influenza Type B (PCR) Negative (Negative) Exam - Constitutional Vitals: Temp Pulse Resp BP Pulse Ox 98.7 F 68 18 154/63 93 10/27/17 11:33 10/27/17 11:33 10/27/17 11:33 10/27/17 11:33 10/27/17 11:33 General appearance: cooperative, morbidly obese, no acute distress - Head Head exam: Present: atraumatic, normal inspection, normocephalic - Eye Eye exam: Present: EOMI, normal appearance, PERRL Pupils: Present: normal accommodation - ENT ENT exam: Present: mucous membranes moist - Neck Neck exam: Present: normal inspection - Respiratory Respiratory exam: Present: CTAB. Absent: rales, respiratory distress, rhonchi, wheezes - Cardiovascular Cardiovascular exam: Present: RRR, +S1, +S2 - GI/Abdominal GI/Abdominal exam: Present: distended (obese), normal bowel sounds, soft. Absent: tenderness - Extremities Exam Extremities exam: Present: pedal edema (1+ LLE). Absent: joint swelling, tenderness Additional comments: LLE erythema noted from the mid-calf to the distal forefoot with sparing of the anterior hindfoot and ankle. Non-tender on palpation. Has not receded or extended past the previous skin markings. No open lesions noted. - Neurological Exam Neurological exam: Present: alert, oriented X3, no focal deficits - Psychiatric Psychiatric exam: Present: normal affect, normal mood - Skin Skin exam: Present: dry, intact, normal color, warm Consult Discharge Plan - Plan Instructions: Extended Spectrum Beta Lactamase (GEN) Referrals: Lang Jarvis DO [Primary Care Provider] - 11/01/17 8:30 am ( )
--- NOTE | 2017-10-27 17:06 | Internal Med Progress Note ---
Date of Encounter: 10/27/17 Time of Encounter: 13:00 - Assessment and plan (1) Community acquired pneumonia Current Visit: Yes Status: Acute Assessment and plan: Symptomatically with shortness of breath and cough. CXR 10/17/17 with right basilar airspace disease. Repeat CXR 10/25/14 with interval resolution of right basilar infiltrate. Flu treated with ertapenem and vancomycin due to multiple allergies. Clinically improving. Switch to doxycycline; will give 2 doses prior to discharge to ensure no allergic reaction. Urinary antigens, respiratory PCR pending Qualifiers: Laterality: unspecified laterality Qualified Code(s): J18.9 - Pneumonia, unspecified organism (2) UTI (urinary tract infection) Current Visit: Yes Status: Acute Assessment and plan: urine cx with ESBL E. coli.. Unclear if true infection vs. colonization vs. ASB. Initially treated with Ertapenem. Which to Macrobid; will need to receive 2 doses inpatient due to multiple allergies to ensure no allergic reaction. ID following Qualifiers: Urinary tract infection type: acute cystitis Hematuria presence: without hematuria Qualified Code(s): N30.00 - Acute cystitis without hematuria (3) Cellulitis of left lower extremity Current Visit: No Status: Acute Assessment and plan: Cellulitis of LLE without sign of DVT. Cont vancomycin. ID following (4) COPD exacerbation Current Visit: Yes Status: Acute Assessment and plan: -Secondary to the above; continue IV ATB, DuoNeb (5) Diastolic CHF, acute on chronic Current Visit: Yes Status: Acute Assessment and plan: per hx. with lower extremity edema on exam but does not appear overtly overloaded. One-time dose IV Lasix on 10/25. Continue home diuretics. Daily weights, strict I's and O's. (6) Symptomatic bradycardia Current Visit: Yes Status: Acute Assessment and plan: junctional bradycardia noted on ECG and episodes of frequent PVCs. Not on julian blocking agents. Cardiology recommendations for no further intervention but follow-up in 2 weeks as outpatient (7) Penicillin allergy Current Visit: Yes Status: Acute Assessment and plan: significant allergies to different antibiotics. Patient is unsure as to what the reaction is to many of them, or just doesn't know. Makes finding appropriate antibiotics difficult. Will need allergy consult to better evaluate for potentially real allergies. (8) DVT prophylaxis Current Visit: No Status: Acute Assessment and plan: heparin - Subjective Interval history: Seen and examined at beside. Says she feels about the same, maybe a little bit better. Feels redness and swelling to left leg is getting better. Says she is overall tired and weak but once to go home at discharge. Of fevers or chills. No cough.. - Constitutional Vitals: Temp Pulse Resp BP Pulse Ox 98.8 F 70 16 151/68 93 10/27/17 15:55 10/27/17 15:55 10/27/17 15:55 10/27/17 15:55 10/27/17 15:55 General appearance: Present: cooperative, A&O X 3, morbidly obese, pleasant, no acute distress, answers questions appropriately - Head Head exam: Present: atraumatic, normocephalic - Eye Eye exam: Present: PERRL, conjuntiva pink, sclera anicteric Pupils: Present: PERRL - Neck Neck exam general surgery: Present: supple, trachea midline. Absent: lymphadenopathy - Respiratory Respiratory exam: Present: CTAB. Absent: accessory muscle use, rales, rhonchi, wheezes - Cardiovascular Cardiovascular exam: Present: RRR, +S1, +S2. Absent: diastolic murmur, gallop, rubs, systolic murmur - GI/Abdominal GI/Abdominal exam: Present: normal bowel sounds, soft, no peritoneal signs. Absent: distended, tenderness - Extremities Exam Extremities exam: Present: pedal edema, warm, radial pulses palpable and symmetrical. Absent: calf tenderness, cyanotic Additional comments: Left lower extremity erythema, tenderness warmth and edema - Neurological Exam Neurological exam: Present: CN II-XII intact, oriented X3, no focal deficits. Absent: pronater drift, facial droop, speech deficit - Skin Skin exam: Present: dry, intact Internal Medicine: Result - Labs CBC & Chem 7: 10/27/17 09:09 10/27/17 09:09 Labs: Short CBC 10/27/17 Range/Units 09:09 WBC 7.6 (4.3-11.1) K/mcL Hgb 9.7 L (11.5-15.4) g/dL Hct 32.5 L (35.3-44.9) % Plt Count 250 (140-400) K/mcL BMP 10/27/17 09:09 Sodium 137 Potassium 4.4 Chloride 99 Carbon Dioxide 31 H BUN 26 H Creatinine 1.06 Glucose 159 H Calcium 8.9 - ABG Interpretation ABG results: ABG ABG pH 7.34 pH Units (7.32-7.45) 10/19/17 12:08 ABG pCO2 54 mmHg (35-45) H 10/19/17 12:08 ABG pO2 81 mmHg (85-104) L 10/19/17 12:08 ABG O2 Saturation 95 % (95-98) 10/19/17 12:08 PT/INR, D-dimer PT 13.4 Seconds (9.4-12.1) H 10/17/17 16:08 Consult Discharge Plan - Plan Instructions: Extended Spectrum Beta Lactamase (GEN) Referrals: Lang Jarvis DO [Primary Care Provider] - 11/01/17 8:30 am ( )
[2017-10-27] MEDS: Nitrofurantoin (BID) 100 MG CAPSULE PO SCH (17:37)
[2017-10-27] MEDS: Melatonin 3 MG TABLET PO SCH (20:03)
[2017-10-27] MEDS: Doxycycline 100 MG CAPSULE PO SCH (20:03)
[2017-10-27 21:53] LABS: Adenovirus Not Detected (Not Detect); Bordetella Pertussis Not Detected (Not Detect); Chlamydophila pneumoniae Not Detected (Not Detect); Coronavirus 229E Not Detected (Not Detect); Coronavirus HKU1 Not Detected (Not Detect); Coronavirus NL63 Not Detected (Not Detect); Coronavirus OC43 Not Detected (Not Detect); Human Metapneumovirus Not Detected (Not Detect); Human Rhinovirus/Enterovirus Not Detected (Not Detect); Influenza A Subtype 2009 H1 Not Detected (Not Detect); Influenza A Untypeable Not Detected (Not Detect); Influenza B Not Detected (Not Detect); Mycoplasma pneumoniae Not Detected (Not Detect); Parainfluenza Virus 1 Not Detected (Not Detect); Parainfluenza Virus 2 Not Detected (Not Detect); Parainfluenza Virus 3 Not Detected (Not Detect); Parainfluenza Virus 4 Not Detected (Not Detect); Respiratory Syncytial Virus Not Detected (Not Detect)
[2017-10-28] MEDS: Ipratropium/Albuterol Neb 3 ML IH SCH ×6 (03:35→23:20)
[2017-10-28] MEDS: *HR* Heparin 5,000 UNIT/ML VIAL SQ SCH ×2 (04:38→16:55)
--- NOTE | 2017-10-28 07:17 | Infectious Disease Progress No ---
Date of Encounter: 10/28/17 Time of Encounter: 07:05 - Assessment and Plan (1) Cellulitis of left lower extremity Current Visit: No Status: Acute Location: LLE. Causative organism unclear. DVT study negative. Additional imaging of the LLE not done, but the patient reports improvement Ertapenem discontinued yesterday Patient started on doxycycline yesterday Continue Vancomycin IV. Pharmacy to dose. Goal trough ~15 Because of worsening cellulitis, will obtain CT to more closely evaluate Duration of treatment depends on the clinical picture Monitor renal function and for drug toxicity and dose-adjust antibiotics. (2) Pneumonia Current Visit: Yes Status: Acute Causative organism unclear Patient reports being at baseline shortness of breath and oxygen usage CXR performed 10/17 demonstrated right basilar airspace disease. CXR performed 10/19 re-demonstrated same airspace disease. CXR performed 10/25 showed interval resolution of right basilar infiltrate. Flu PCR negative, but could be other viral illness. S. pneumo and Legionella negative Send sputum for culture if the patient is able to provide an adequate specimen. Meropenem discontinued yesterday CrCl 82 Continue Doxycycline, monitor for potential allergic reactions Continue Vancomycin IV. Pharmacy to dose. Goal trough ~15. Monitor renal function and for drug toxicity and dose-adjust antibiotics. Duration of treatment depends on the clinical picture, but likely 10 day Qualifiers: Qualified Code(s): J18.1 - Lobar pneumonia, unspecified organism (3) UTI (urinary tract infection) Current Visit: Yes Status: Acute Causative organism: ESBL E. coli. True infection vs. colonization vs. ASB Referring discontinued yesterday Duration of treatment depends on the clinical picture Continue Macrobid Continue to monitor for potential allergic/drug reaction Qualifiers: Qualified Code(s): N30.00 - Acute cystitis without hematuria (4) Penicillin allergy Current Visit: Yes Status: Deleted Patient has list of significant allergies to different antibiotics. She is unsure as to what the reaction is to many of them, or just doesn't know. Her extensive list of allergies certainly makes finding appropriate antibiotics difficult. Recommend allergy consult to better evaluate for potentially real allergies. (5) COPD (chronic obstructive pulmonary disease) Current Visit: No Status: Chronic Continue management per primary team. Qualifiers: Qualified Code(s): J44.9 - Chronic obstructive pulmonary disease, unspecified (6) Diabetes mellitus type 2 with complications Current Visit: No Status: Chronic Continued management per primary team. Qualifiers: Qualified Code(s): E11.8 - Type 2 diabetes mellitus with unspecified complications; Z79.4 - director long term care (current) use of insulin; Z79.4 - penitentiary ( current) use of insulin; Z79.4 - penitentiary (current) use of insulin; Z79.4 - penitentiary (current) use of insulin (7) Atrial fibrillation Current Visit: No Status: Chronic Continued management per primary team. Qualifiers: Qualified Code(s): I48.2 - Chronic atrial fibrillation - Subjective Interval history: Patient reports that she is feeling well this morning. She no longer feels discomfort in her L. leg. She states that her shortness of breath is at baseline for her, currently on her home dose of oxygen. She denies cough, fever , chills, chest pain, nausea, or diaphoresis. She also denies any urinary symptoms including dysuria or hematuria. Infect Dis PN-Objective Data - Labs CBC & Chem 7: 10/27/17 09:09 10/29/17 06:00 Labs: Laboratory Results - last 24 hr 10/27/17 10/27/17 10/27/17 07:21 09:09 09:09 WBC 7.6 RBC 3.65 L Hgb 9.7 L Hct 32.5 L MCV 89.0 MCH 26.6 L MCHC 29.8 L RDW 17.0 H Plt Count 250 MPV 10.2 Sodium 137 Potassium 4.4 Chloride 99 Carbon Dioxide 31 H BUN 26 H Creatinine 1.06 Est GFR ( Amer) > 60 Est GFR (Non-Af Amer) 53 L BUN/Creatinine Ratio 25 Glucose 159 H POC Glucose 57 L Calculated Osmolality 292 Calcium 8.9 Vancomycin Trough Chlamy pneumoniae PCR Adenovirus (PCR) B. pertussis DNA (PCR) B.parapertussis DNA PCR Coronavirus OC43 (PCR) Coronavirus HKU1 (PCR) Coronavirus 229E (PCR) Coronavirus NL63 (PCR) Human Metapneumovir PCR Influenza A (H1) PCR Influ A (H1N1/09) PCR Influenza A (H3) PCR Influenza A Untype (PCR) Influenza Type B (PCR) M.pneumoniae DNA (PCR) Parainfluenza 1 (PCR) Parainfluenza 2 (PCR) Parainfluenza 3 (PCR) Parainfluenza 4 (PCR) RSV (PCR) Entero/Rhino (PCR) 10/27/17 10/27/17 10/27/17 09:16 11:40 17:01 WBC RBC Hgb Hct MCV MCH MCHC RDW Plt Count MPV Sodium Potassium Chloride Carbon Dioxide BUN Creatinine Est GFR ( Amer) Est GFR (Non-Af Amer) BUN/Creatinine Ratio Glucose POC Glucose 164 H 165 H 213 H Calculated Osmolality Calcium Vancomycin Trough Chlamy pneumoniae PCR Adenovirus (PCR) B. pertussis DNA (PCR) B.parapertussis DNA PCR Coronavirus OC43 (PCR) Coronavirus HKU1 (PCR) Coronavirus 229E (PCR) Coronavirus NL63 (PCR) Human Metapneumovir PCR Influenza A (H1) PCR Influ A (H1N1/) PCR Influenza A (H3) PCR Influenza A Untype (PCR) Influenza Type B (PCR) M.pneumoniae DNA (PCR) Parainfluenza 1 (PCR) Parainfluenza 2 (PCR) Parainfluenza 3 (PCR) Parainfluenza 4 (PCR) RSV (PCR) Entero/Rhino (PCR) 10/27/17 10/27/17 10/27/17 17:41 20:26 20:55 WBC RBC Hgb Hct MCV MCH MCHC RDW Plt Count MPV Sodium Potassium Chloride Carbon Dioxide BUN Creatinine Est GFR ( Amer) Est GFR (Non-Af Amer) BUN/Creatinine Ratio Glucose POC Glucose 285 H Calculated Osmolality Calcium Vancomycin Trough 18.1 Chlamy pneumoniae PCR Not Detected Adenovirus (PCR) Not Detected B. pertussis DNA (PCR) Not Detected B.parapertussis DNA PCR Not Detected Coronavirus OC43 (PCR) Not Detected Coronavirus HKU1 (PCR) Not Detected Coronavirus 229E (PCR) Not Detected Coronavirus NL63 (PCR) Not Detected Human Metapneumovir PCR Not Detected Influenza A (H1) PCR Not Detected Influ A (H1N1/09) PCR Not Detected Influenza A (H3) PCR Not Detected Influenza A Untype (PCR) Not Detected Influenza Type B (PCR) Not Detected M.pneumoniae DNA (PCR) Not Detected Parainfluenza 1 (PCR) Not Detected Parainfluenza 2 (PCR) Not Detected Parainfluenza 3 (PCR) Not Detected Parainfluenza 4 (PCR) Not Detected RSV (PCR) Not Detected Entero/Rhino (PCR) Not Detected Cultures: Cultures 10/27/17 13:30 Legionella Antigen - Final Urine,Clean Catch Streptococcus pneumoniae Antigen (M - Final Serology 10/27/17 10/26/17 Range/Units 20:55 06:05 Chlamy pneumoniae PCR Not Detected (Not Detect) Adenovirus (PCR) Not Detected (Not Detect) B. pertussis DNA (PCR) Not Detected (Not Detect) B.parapertussis DNA PCR Not Detected (Not Detect) Coronavirus OC43 (PCR) Not Detected (Not Detect) Coronavirus HKU1 (PCR) Not Detected (Not Detect) Coronavirus 229E (PCR) Not Detected (Not Detect) Coronavirus NL63 (PCR) Not Detected (Not Detect) Human Metapneumovir PCR Not Detected (Not Detect) Influenza A (H1) PCR Not Detected (Not Detect) Influ A (H1N1/09) PCR Not Detected (Not Detect) Influenza A (H3) PCR Not Detected (Not Detect) Influenza Type A (PCR) Negative (Negative) Influenza A Untype (PCR) Not Detected (Not Detect) Influenza Type B (PCR) Not Detected Negative (Negative) M.pneumoniae DNA (PCR) Not Detected (Not Detect) Parainfluenza 1 (PCR) Not Detected (Not Detect) Parainfluenza 2 (PCR) Not Detected (Not Detect) Parainfluenza 3 (PCR) Not Detected (Not Detect) Parainfluenza 4 (PCR) Not Detected (Not Detect) RSV (PCR) Not Detected (Not Detect) Entero/Rhino (PCR) Not Detected (Not Detect) - Impressions Echocardiogram 10/18/17 17:54 Impressions: LVEF 55-60%. Despite the use of Definity, not all LV segments were well visualized. Grossly, the left ventricle is normal in chamber size, wall thickness, and function. Moderate left ventricular diastolic dysfunction. Right ventricle was not well visualized. Unable to estimate RVSP due to lack of TR jet. Valves were not well visualized. No obvious valvular dysfunction noted. Findings: Study Quality * Technically sub-optimal due to body habitus. ECG Findings * Normal sinus rhythm. Left Ventricle * LVEF 55-60%. * Despite the use of Definity, not all LV segments were well visualized. * Grossly, the left ventricle is normal in chamber size, wall thickness, and function. * Moderate left ventricular diastolic dysfunction. Right Ventricle * Right ventricle was not well visualized. Left Atrium * Grossly, at least moderately dilated. Right Atrium * Mildly dilated right atrium. Interatrial Septum * Interatrial septum not well evaluated. Aortic Valve * Aortic valve not well visualized. * No aortic stenosis. * No aortic regurgitation. Mitral Valve * Mitral valve not well visualized. * No mitral regurgitation. * No mitral stenosis. Tricuspid Valve * Tricuspid valve not well visualized. * No tricuspid regurgitation. * Unable to estimate RVSP due to lack of TR jet. Pulmonic Valve * Pulmonic valve not well visualized. Aorta * Normally sized aortic root. Pericardium * The pericardium appears normal. IVC * The IVC is not well evaluated. Pulmonary Artery * Pulmonary artery not well visualized. Chest X-Ray 10/25/17 19:53 IMPRESSION: No acute cardiopulmonary disease. Interval resolution of right basilar infiltrate. D/ / Zenon Ortiz MD / Zenon Ortiz MD Interpreting Provider: Zeonn Ortiz MD Exam - Constitutional Vitals: Temp Pulse Resp BP Pulse Ox 97.8 F 71 18 166/51 92 10/28/17 03:13 10/28/17 03:13 10/28/17 03:35 10/28/17 03:13 10/28/17 03:35 - Additional findings Additional findings: General: Cooperative, pleasant, no acute distress, alert and oriented 3, answers questions appropriately HEENT: Normocephalic, atraumatic, Conjunctiva pink, sclera anicteric, oral mucosa moist, no orophargeal erythema or exudates Respiratory: No accessory muscle usage, clear to auscultation bilaterally, no wheezes/rhonchi/rails appreciated Cardiovascular: Regular rate and rhythm, S1 and S2 present, no murmurs/rubs/ gallops/clicks appreciated GI/abdominal: Nondistended, nontender, soft, normal bowel sounds, no peritoneal signs Extremities: Lower extremity pulses palpable and symmetrical, minimal pitted edema on right lower extremity, left lower extremity 2+ pitted edema with area of erythema from the ankle to mid-calf that appears stable per previous skin markings, slightly warm Neurological: Alert and oriented 3, no facial droop, no focal deficits Consult Discharge Plan - Plan Instructions: Extended Spectrum Beta Lactamase (GEN) Referrals: Lang Jarvis DO [Primary Care Provider] - 11/01/17 8:30 am ( ) Prescriptions: Doxycycline 100 mg PO BID #16 capsule - Attending Attestation I examined this patient and my medical decision-making was reviewed with the Resident Physician. I agree with the documented findings, disposition and treatment plan as described except to the extent set forth below.
[2017-10-28] MEDS: Budesonide/Formoterol 160/4.5 MDI IH SCH ×2 (07:47→19:55)
[2017-10-28] MEDS: Pregabalin 75 MG CAPSULE PO SCH ×2 (08:25→20:18)
[2017-10-28] MEDS: Cholecalciferol (D-3) 1,000 UNIT TABLET PO SCH (08:25)
[2017-10-28] MEDS: FLUoxetine HCl 10 MG CAPSULE PO SCH (08:25)
[2017-10-28] MEDS: amLODIPine 5 MG TABLET PO SCH (08:25)
[2017-10-28] MEDS: Aspirin 81 MG TAB.CHEW PO SCH (08:25)
[2017-10-28] MEDS: Furosemide 40 MG TABLET PO SCH ×2 (08:25→16:55)
[2017-10-28] MEDS: Lisinopril 20 MG TABLET PO SCH (08:25)
[2017-10-28] MEDS: Nitrofurantoin (BID) 100 MG CAPSULE PO SCH ×2 (08:25→16:55)
[2017-10-28] MEDS: Doxycycline 100 MG CAPSULE PO SCH ×2 (08:25→20:18)
[2017-10-28] MEDS: Nystatin POWDER 30 GM BOTTLE TP SCH ×2 (08:26→20:18)
[2017-10-28] MEDS: MICONAZOLE NITRATE TP SCH (08:27)
[2017-10-28] MEDS ORDERED: Insulin LISPRO 300 UNITS/3 ML VIAL SQ ONE ×2 (08:59→12:29)
--- NOTE | 2017-10-28 09:57 | Internal Med Progress Note ---
Date of Encounter: 10/28/17 Time of Encounter: 09:17 - Assessment and plan (1) Community acquired pneumonia Current Visit: Yes Status: Acute Assessment and plan: Symptomatic with shortness of breath and cough. CXR 10/17/17 with right basilar airspace disease. Urinary antigens negative. Respiratory PCR ordered but not completed. Completed 7 day course of ertapenem and vancomycin. CXR 10/25 showed interval resolution of right basilar infiltrate. ID followed Qualifiers: Laterality: unspecified laterality Qualified Code(s): J18.9 - Pneumonia, unspecified organism (2) UTI (urinary tract infection) Current Visit: Yes Status: Acute Assessment and plan: urine cx with ESBL E. coli. Unclear if true infection or colonization. Completed 7 day course of ertapenem., switched to marcobid on 10/27. ID following Qualifiers: Urinary tract infection type: acute cystitis Hematuria presence: without hematuria Qualified Code(s): N30.00 - Acute cystitis without hematuria (3) Cellulitis of left lower extremity Current Visit: No Status: Acute Assessment and plan: Symptomatic with left lower extremity edema, warmth, tenderness and erythema. Initially had been improving but now appears that erythema is spreading on 10/28 exam. Lower extremity Doppler negative for DVT. Initially treated with ertapenem and vancomycin. Imipenem stopped on 10/27 and switched to doxycycline. Cont vanco and Doxy for now. ID following. (4) Diastolic CHF, acute on chronic Current Visit: Yes Status: Acute Assessment and plan: per hx. with lower extremity edema on exam but does not appear overtly overloaded. One-time dose IV Lasix on 10/25. Continue home diuretics. Daily weights, strict I's and O's. (5) Symptomatic bradycardia Current Visit: Yes Status: Acute Assessment and plan: junctional bradycardia noted on ECG and episodes of frequent PVCs. Not on julian blocking agents. Cardiology recommendations for no further intervention but follow-up in 2 weeks as outpatient (6) Penicillin allergy Current Visit: Yes Status: Acute Assessment and plan: significant allergies to different antibiotics. Patient is unsure as to what the reaction is to many of them, or just doesn't know. Allergies consult as her extensive antibiotic allergy list makes finding appropriate antibiotics difficult. (7) Diabetes mellitus type 2 with complications Current Visit: No Status: Chronic Assessment and plan: per hx. On U-500 insulin with insulin pump at home. Monitor blood sugars. Patient to continue using insulin pump. 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 Says she had an uneventful night. Feels a little more awake today. Says he feels better overall that she is concerned that swelling, redness and warmth to left lower leg is getting worse today. She is concerned about going home to early. No fevers or chills. No cough. - Constitutional Vitals: Temp Pulse Resp BP Pulse Ox 97.7 F 66 18 164/53 96 10/28/17 07:58 10/28/17 07:58 10/28/17 07:58 10/28/17 07:58 10/28/17 07:58 General appearance: Present: cooperative, A&O X 3, morbidly obese, pleasant, no acute distress, answers questions appropriately - Head Head exam: Present: atraumatic, normocephalic - Eye Eye exam: Present: PERRL, conjuntiva pink, sclera anicteric Pupils: Present: PERRL - Neck Neck exam general surgery: Present: supple, trachea midline. Absent: lymphadenopathy - Respiratory Respiratory exam: Present: CTAB. Absent: accessory muscle use, rales, rhonchi, wheezes - Cardiovascular Cardiovascular exam: Present: RRR, +S1, +S2. Absent: diastolic murmur, gallop, rubs, systolic murmur - GI/Abdominal GI/Abdominal exam: Present: normal bowel sounds, soft, no peritoneal signs. Absent: distended, tenderness - Extremities Exam Extremities exam: Present: pedal edema, warm, radial pulses palpable and symmetrical. Absent: calf tenderness, cyanotic Additional comments: Left lower extremity with erythema that appears to be spreading, warmth and tenderness and swelling. - Neurological Exam Neurological exam: Present: CN II-XII intact, oriented X3, no focal deficits. Absent: pronater drift, facial droop, speech deficit - Skin Skin exam: Present: dry, intact Internal Medicine: Result - Labs CBC & Chem 7: 10/27/17 09:09 10/27/17 09:09 Labs: Short CBC 10/27/17 Range/Units 09:09 WBC 7.6 (4.3-11.1) K/mcL Hgb 9.7 L (11.5-15.4) g/dL Hct 32.5 L (35.3-44.9) % Plt Count 250 (140-400) K/mcL BMP 10/27/17 09:09 Sodium 137 Potassium 4.4 Chloride 99 Carbon Dioxide 31 H BUN 26 H Creatinine 1.06 Glucose 159 H Calcium 8.9 - ABG Interpretation ABG results: ABG ABG pH 7.34 pH Units (7.32-7.45) 10/19/17 12:08 ABG pCO2 54 mmHg (35-45) H 10/19/17 12:08 ABG pO2 81 mmHg (85-104) L 10/19/17 12:08 ABG O2 Saturation 95 % (95-98) 10/19/17 12:08 PT/INR, D-dimer PT 13.4 Seconds (9.4-12.1) H 10/17/17 16:08 Consult Discharge Plan - Plan Instructions: Extended Spectrum Beta Lactamase (GEN) Referrals: Lang Jarvis DO [Primary Care Provider] - 11/01/17 8:30 am ( )
[2017-10-28] MEDS ORDERED: Insulin LISPRO 300 UNITS/3 ML VIAL SQ SCH ×2 (11:30→21:00)
[2017-10-28] MEDS ORDERED: Insulin Regular, Human 100 UNIT/ML SQ ONE (14:36)
--- NOTE | 2017-10-28 15:30 | Allergy Consult Note ---
Date of Encounter: 10/28/17 Time of Encounter: 14:00 Assessment and Plan (1) Penicillin allergy Current Visit: Yes Status: Acute 62 year old female with an extensive history of medication allergies. Patient has worsening cellulitis and ID is requesting that she be tested to penicillin. I have explained to patient that she has a 90% chance that she will be negative and that I recommend doing the test. I am unable to test her other drug allergies especially as she is unable to give much history around them. Patient did have decadron on 10/17 which may interfere with testing. If she has a good histamine response I will proceed with test tomorrow. 1. Will test patient to penicillin tomorrow morning around 7:30-8AM 2. I have explained to patient the risk and benefits of testing. 3. Testing will take roughly 90 minutes. 4. Patient will need to be off antihistamines. History of Present Illness Consult date: 10/28/17 Reason for consult: Drug allergy History of present illness: Patient is a 62 year old female admitted with left leg cellulitis and pneumonia. Patient has an extensive drug allergy list. She was a baby when she had an issues with penicillin and does not remember her reaction. She has not had it since. She had a more severe reaction to a drug but does not remember which one that was. Patient is unable to list all her drug allergies or what the reactions were. Past Med Surg Social Fam HX - Past Medical History Medical history: atrial fibrillation, CHF, COPD, coronary artery disease, DVT, diabetes, GI bleed, hypertension, renal disease, thyroid disease Psychiatric history: anxiety, depression - Past Surgical History Surgical History: angioplasty/stent, other - Social History Smoking Status: Former smoker Smokeless Tobacco Status: No Alcohol use: none Drug use: none - Family History Mother Family Member Ethnicity: Non- Living Status: Still Living Hx Family Cardiac Disorders: Yes Hx Family Neurologic Disorders: Yes ("mini strokes") Brother Living Status: Hx Family Cancer: Yes (colon cancer) Son Living Status: Still Living Hx Family GI Disorders: Yes (high grade dysplasia polyps) Father Adopted: No Family Member Ethnicity: Non- Living Status: Hx Family Cardiac Disorders: Yes Hx Family Respiratory Disorders: Yes (COPD) Hx Family Cancer: No Hx Family GI Disorders: No Hx Family Endocrine Disorder: No Hx Family Neuromuscular Disorders: No Hx Family Neurologic Disorders: No Hx Family HEENT Disorders: No Hx Family Autoimmune Disorders: No Medications and Allergies Albuterol Neb [Proventil Neb] 2.5 mg IH Q6H PRN 02/07/16 [History] Albuterol Sulfate [Proventil Hfa] 2 puff IH Q4H PRN 02/07/16 [History] FLUoxetine HCl [Prozac] 10 mg PO QAM 02/07/16 [History] Insulin Regular U-500 [HumuLIN R U-500] 0 unit .ROUTE PRN PRN 02/07/16 [History ] Pregabalin [Lyrica] 75 mg PO BID 02/07/16 [History] Melatonin 10 mg PO HS #30 capsule 02/11/16 [Rx] B12/Levomefolate Calcium/B-6 [Foltx Tablet] 1 tab PO QPM 02/29/16 [History] Budesonide/Formoterol 160/4.5 [Symbicort 160/4.5] 2 puff IH BIDR 30 Days inhaler 03/03/16 [Rx] Cholecalciferol (Vitamin D3) [Dialyvite Vitamin D] 5,000 unit PO QAM 03/27/16 [ History] Omeprazole 40 mg PO QPM 03/27/16 [History] Amiodarone [Cordarone] 200 mg PO DAILY #30 tablet 04/11/16 [Rx] Acetaminophen [Tylenol] 500 mg PO Q6HR PRN 06/12/16 [History] Oxygen 2 l NS AD 06/12/16 [History] Febuxostat [Uloric] 80 mg PO DAILY 09/10/16 [History] Levothyroxine [Synthroid] 88 mcg PO DAILY 09/10/16 [History] HYDROcodone/Acet 5/325 mg [[place] 5-325 mg] 1 tab PO Q8H PRN 10/09/16 [History] Furosemide [Lasix] 40 mg PO BIDDIURETIC #60 tablet 10/16/16 [Rx] Lisinopril [Zestril] 40 mg PO DAILY #30 tablet 10/16/16 [Rx] Metoprolol XL (24 HR) Succ [Toprol Xl] 50 mg PO QAM #0 10/16/16 [Rx] Nystatin POWDER [Nystop] 1 appl TP TID #2 bottle 10/16/16 [Rx] amLODIPine [Norvasc] 10 mg PO DAILY #30 tablet 10/16/16 [Rx] Atorvastatin Calcium [Lipitor] 20 mg PO HS 01/02/17 [History] Tramadol HCl [Ultram] 50 mg PO Q4H PRN 01/02/17 [History] Docusate [Colace] 100 mg PO BID PRN #60 capsule 01/03/17 [Rx] Miconazole Nitrate [Miconazorb AF] 1 appl TP DAILY 10/20/17 [History] 3 Allergy/AdvReac Type Severity Reaction Status Date / Time ciprofloxacin [From Cipro] Allergy Severe Anaphylaxis Verified 08/05/16 14:01 clarithromycin [From Biaxin] Allergy Severe Hives Verified 09/10/16 20:30 clonidine Allergy Severe Anaphylaxis Verified 08/05/16 14:01 levofloxacin [From Levaquin] Allergy Severe Anaphylaxis Verified 08/05/16 14:01 Tetracycline Allergy Severe Itching Verified 09/10/16 20:30 tiotropium Allergy Severe Blurry Verified 09/10/16 20:30 [From Spiriva with Vision HandiHaler] Warfarin Allergy Severe Difficulty Verified 09/10/16 20:30 Breathing Penicillins Allergy Mild Itching Verified 10/20/17 02:28 acarbose Allergy Blurry Verified 09/10/16 20:30 Vision Cefaclor Allergy Anaphylaxis Verified 04/09/16 08:47 codeine Allergy Rash Verified 09/10/16 20:30 Hydralazine Allergy Hives Verified 09/10/16 20:30 sulfamethoxazole Allergy Hives Verified 10/22/17 20:36 [From Bactrim] trimethoprim [From Bactrim] Allergy Hives Verified 10/22/17 20:36 vancomycin Allergy Itching Verified 10/20/17 02:28 atorvastatin [From Lipitor] AdvReac Muscle Pain Verified 09/10/16 20:30 fenofibrate [From Tricor] AdvReac Muscle Pain Verified 09/10/16 20:30 rivaroxaban [From Xarelto] AdvReac Gastrointestinal Verified 09/10/16 16:35 Upset ROS Allergy - Constitutional Constitutional ROS: no headache(s) - EENT Nose, mouth and throat: no lip swelling, no mouth lesions, no nasal congestion, no throat swelling, no tongue swelling - Integumentary Integumentary: rash (no hives, but has redness and swelling of left lower leg), no pruritus - Allergic/Immunologic no tongue swelling, no throat swelling, no uticaria, no wheezing Allergy Exam Initial Vital Signs Temp Pulse Resp BP Pulse Ox 97.7 F 58 20 192/146 94 10/17/17 14:49 10/17/17 14:49 10/17/17 14:49 10/17/17 14:49 10/17/17 14:49 - General physical appearance well nourished, no distress - Eyes other (no erythema) - ENT normal mucosa - Respiratory normal respiratory effort, clear to auscultation - Integumentary other (erythema of left lower leg and foot) Results - Labs 10/27/17 09:09 10/27/17 09:09 Abnormal lab results RBC 3.65 M/mcL (3.82-4.97) L 10/27/17 09:09 Hgb 9.7 g/dL (11.5-15.4) L 10/27/17 09:09 Hct 32.5 % (35.3-44.9) L 10/27/17 09:09 MCH 26.6 pg (28.0-33.3) L 10/27/17 09:09 MCHC 29.8 g/dL (31.6-35.5) L 10/27/17 09:09 RDW 17.0 % (11.5-14.5) H 10/27/17 09:09 PT 13.4 Seconds (9.4-12.1) H 10/17/17 16:08 ABG pCO2 54 mmHg (35-45) H 10/19/17 12:08 ABG pO2 81 mmHg (85-104) L 10/19/17 12:08 ABG HCO3 29 mEq/L (21-27) H 10/19/17 12:08 ABG Total CO2 31 mEq/L (20-26) H 10/19/17 12:08 Carbon Dioxide 31 mEq/L (23-29) H 10/27/17 09:09 BUN 26 mg/dL (8-23) H 10/27/17 09:09 Est GFR (Non-Af Amer) 53 (> 60) L 10/27/17 09:09 Glucose 159 mg/dL (70-105) H 10/27/17 09:09 POC Glucose 285 (58-89) H 10/27/17 20:26 B-Natriuretic Peptide 470 pg/mL (Less than 100) H 10/17/17 16:08 Urine Protein 100 mg/dL (Neg-Trace) H 10/17/17 15:08 Urine Blood Trace (Negative) H 10/17/17 15:08 Ur Leukocyte Esterase Small (Negative) H 10/17/17 15:08 Urine Microscopic WBC 15-30 per hpf (0-3) H 10/17/17 15:08 Ur Squamous Epith Cells Moderate per lpf (None-Few) H 10/17/17 15:08 Urine Bacteria Moderate per hpf (None-Few) H 10/17/17 15:08 Ur Culture Indicated? YES (NO) A 10/17/17 15:08 All other labs normal. Consult Discharge Plan - Plan Instructions: Extended Spectrum Beta Lactamase (GEN) Referrals: Lang Jarvis DO [Primary Care Provider] - 11/01/17 8:30 am ( )
[2017-10-28] MEDS: Melatonin 3 MG TABLET PO SCH (20:18)
[2017-10-29] MEDS: Ipratropium/Albuterol Neb 3 ML IH SCH ×3 (03:30→10:59)
[2017-10-29] MEDS: *HR* Heparin 5,000 UNIT/ML VIAL SQ SCH (05:50)
[2017-10-29 07:24] LABS: BUN/Creatinine Ratio 27 (6-26); Blood Urea Nitrogen 32 mg/dL (8-23); eGFR For African Americans 57 (> 60); eGFR For Non-African Americans 47 (> 60)
[2017-10-29] MEDS: Budesonide/Formoterol 160/4.5 MDI IH SCH (07:42)
--- NOTE | 2017-10-29 09:08 | Allergy Procedure Note ---
Date of procedure: 10/29/17 Pre-op diagnosis: penicillin allergy Post-op diagnosis: other (Patient is not allergic to penicillin) Procedure: Penicillin Testing I have explained the risk and benefits of procedure. A written consent reviewed and signed. Step One Skin Test negative after 15 mins to upper left back, histamine 10mmx 20mm, saline 6pal5ic, Pen G 0x2 x 2, Prepen 0x2 x2. Step 2. ID negative after 10 mins, Pen G 5x5 (x2) applied to upper right arm, Pen G 5x5 (x2) applied to upper left arm. Step 3. Assessment unchanged, continued with Step 3 : Amoxicillin 500mg given PO , monitored x 65 mins Patient was examined and reports no issues. Exam- Skin- no hives, erythema of left leg -Lungs -CTA B/L -Heart-RRR -Throat-clear, no swelling Anesthesia: none Was there an event sales assistant present: Yes Manager Java: Nancy Wu Condition: stable
--- NOTE | 2017-10-29 09:59 | Infectious Disease Progress No ---
Date of Encounter: 10/29/17 Time of Encounter: 09:45 - Assessment and Plan (1) Cellulitis of left lower extremity Current Visit: No Status: Acute Location: LLE Causative organism unclear DVT study negative CT scan performed yesterday did not reveal any signs of abscess, osteomyelitis, gas, foreign body, but did show trace effusion in her knee Ertapenem discontinued 10/27 Slight improvement in warmth and erythema today, bowel appears to have slightly spread area of involvement Patient started on doxycycline 10/27 Continue Vancomycin IV. Pharmacy to dose. Goal trough ~15 Duration of treatment depends on the clinical picture Monitor renal function and for drug toxicity and dose-adjust antibiotics. (2) Pneumonia Current Visit: Yes Status: Acute Causative organism unclear Patient reports being at baseline shortness of breath and oxygen usage CXR performed 10/17 demonstrated right basilar airspace disease. CXR performed 10/19 re-demonstrated same airspace disease. CXR performed 10/25 showed interval resolution of right basilar infiltrate. Flu PCR negative, but could be other viral illness. S. pneumo and Legionella negative Send sputum for culture if the patient is able to provide an adequate specimen. Meropenem discontinued yesterday CrCl 75 Continue Doxycycline, monitor for potential allergic reactions Continue Vancomycin IV. Pharmacy to dose. Goal trough ~15. Monitor renal function and for drug toxicity and dose-adjust antibiotics. Duration of treatment depends on the clinical picture, but likely 10 day Qualifiers: Pneumonia type: due to unspecified organism Laterality: right Lung location: middle lobe of lung Qualified Code(s): J18.1 - Lobar pneumonia, unspecified organism (3) UTI (urinary tract infection) Current Visit: Yes Status: Acute Causative organism: ESBL E. coli. True infection vs. colonization vs. ASB Referring discontinued yesterday Duration of treatment depends on the clinical picture Continue Macrobid Continue to monitor for potential allergic/drug reaction Qualifiers: Urinary tract infection type: acute cystitis Hematuria presence: without hematuria Qualified Code(s): N30.00 - Acute cystitis without hematuria (4) COPD (chronic obstructive pulmonary disease) Current Visit: No Status: Chronic Continue management per primary team. Qualifiers: COPD type: unspecified COPD Qualified Code(s): J44.9 - Chronic obstructive pulmonary disease, unspecified (5) Diabetes mellitus type 2 with complications Current Visit: No Status: Chronic Continued management per primary team. 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 Qualifiers: Atrial fibrillation type: chronic Qualified Code(s): I48.2 - Chronic atrial fibrillation - Subjective Interval history: Patient reports feeling better today. She states she is having less pain in her left lower extremity. She does report having one episode of chills last night, but states this is a normal occurrence for her at home. She denies having fever, diaphoresis, lightheadedness, chest pain. She does report having some dyspnea at baseline and is on her home amount of oxygen. She denies urinary symptoms and states she has no problems with bowel movements currently. Patient has been afebrile and has stable vital signs Infect Dis PN-Objective Data - Labs CBC & Chem 7: 10/27/17 09:09 10/29/17 06:00 Labs: Laboratory Results - last 24 hr 10/28/17 10/28/17 10/28/17 07:38 07:39 11:46 BUN Creatinine Est GFR ( Amer) Est GFR (Non-Af Amer) BUN/Creatinine Ratio POC Glucose 481 H* 512 H* 550 H* Vancomycin Trough 10/28/17 10/28/17 10/28/17 11:47 14:26 14:27 BUN Creatinine Est GFR ( Amer) Est GFR (Non-Af Amer) BUN/Creatinine Ratio POC Glucose 595 H* 427 H* 512 H* Vancomycin Trough 10/28/17 10/28/17 10/29/17 17:26 20:29 06:00 BUN Creatinine Est GFR ( Amer) Est GFR (Non-Af Amer) BUN/Creatinine Ratio POC Glucose 296 H 292 H Vancomycin Trough 31.6 H* 10/29/17 10/29/17 06:00 07:33 BUN 32 H Creatinine 1.17 Est GFR ( Amer) 57 L Est GFR (Non-Af Amer) 47 L BUN/Creatinine Ratio 27 H POC Glucose 73 Vancomycin Trough Cultures: Cultures 10/27/17 13:30 Legionella Antigen - Final Urine,Clean Catch Streptococcus pneumoniae Antigen (M - Final Serology 10/27/17 10/26/17 Range/Units 20:55 06:05 Chlamy pneumoniae PCR Not Detected (Not Detect) Adenovirus (PCR) Not Detected (Not Detect) B. pertussis DNA (PCR) Not Detected (Not Detect) B.parapertussis DNA PCR Not Detected (Not Detect) Coronavirus OC43 (PCR) Not Detected (Not Detect) Coronavirus HKU1 (PCR) Not Detected (Not Detect) Coronavirus 229E (PCR) Not Detected (Not Detect) Coronavirus NL63 (PCR) Not Detected (Not Detect) Human Metapneumovir PCR Not Detected (Not Detect) Influenza A (H1) PCR Not Detected (Not Detect) Influ A (H1N1/09) PCR Not Detected (Not Detect) Influenza A (H3) PCR Not Detected (Not Detect) Influenza Type A (PCR) Negative (Negative) Influenza A Untype (PCR) Not Detected (Not Detect) Influenza Type B (PCR) Not Detected Negative (Negative) M.pneumoniae DNA (PCR) Not Detected (Not Detect) Parainfluenza 1 (PCR) Not Detected (Not Detect) Parainfluenza 2 (PCR) Not Detected (Not Detect) Parainfluenza 3 (PCR) Not Detected (Not Detect) Parainfluenza 4 (PCR) Not Detected (Not Detect) RSV (PCR) Not Detected (Not Detect) Entero/Rhino (PCR) Not Detected (Not Detect) - Impressions Impressions Lower Extremity CT 10/28/17 14:00 IMPRESSION: Diffuse nonspecific subcutaneous edema. No focal fluid collections to suggest abscess formation. No radiopaque foreign bodies or soft tissue gas. No acute bony abnormalities. No CT evidence for osteomyelitis. Partially imaged trace to small left knee joint effusion. D/ / 10/28/2017 14:55:22 Kedar Simon MD / naila Interpreting Provider: Kedar Simon MD Exam - Constitutional Vitals: Temp Pulse Resp BP Pulse Ox 97.7 F 67 18 132/65 91 10/29/17 07:30 10/29/17 07:30 10/29/17 07:42 10/29/17 07:30 10/29/17 07:42 - Additional findings Additional findings: General: Cooperative, pleasant, no acute distress, alert and oriented 3, answers questions appropriately HEENT: Normocephalic, atraumatic, Conjunctiva pink, sclera anicteric, oral mucosa moist, no orophargeal erythema or exudates Respiratory: No accessory muscle usage, clear to auscultation bilaterally, no wheezes/rhonchi/rails appreciated Cardiovascular: Regular rate and rhythm, S1 and S2 present, no murmurs/rubs/ gallops/clicks appreciated GI/abdominal: Nondistended, nontender, soft, normal bowel sounds, no peritoneal signs Extremities: Lower extremity pulses palpable and symmetrical, minimal pitted edema on right lower extremity, left lower extremity 2+ pitted edema with area of erythema (slightly less red today) from the ankle to mid-calf that appears to have passed previous skin markings, slightly warm (though decreased from yesterday), some slight warmth in her left knee, no significant swelling appreciated, no pain on palpation of left knee Neurological: Alert and oriented 3, no facial droop, no focal deficits Consult Discharge Plan - Plan Instructions: Nitrofurantoin (By mouth), Doxycycline (By mouth), Nitrofurantoin Combination (By mouth), Heart Failure (DC), Urinary Tract Infection in Women (DC), Cellulitis (DC), Extended Spectrum Beta Lactamase (GEN) Referrals: Mary Stanford MD [Partnered Physician] - 11/29/17 11:15 am Lang Jarvis DO [Primary Care Provider] - 11/01/17 8:30 am ( ) Prescriptions: Doxycycline 100 mg PO BID #16 capsule Nitrofurantoin (BID) [Macrobid] 100 mg PO BIDWM #16 capsule - Attending Attestation I examined this patient and my medical decision-making was reviewed with the Resident Physician. I agree with the documented findings, disposition and treatment plan as described except to the extent set forth below.
[2017-10-29] MEDS: FLUoxetine HCl 10 MG CAPSULE PO SCH (10:20)
[2017-10-29] MEDS: Lisinopril 20 MG TABLET PO SCH (10:20)
[2017-10-29] MEDS: Aspirin 81 MG TAB.CHEW PO SCH (10:20)
[2017-10-29] MEDS: Pregabalin 75 MG CAPSULE PO SCH (10:20)
[2017-10-29] MEDS: Doxycycline 100 MG CAPSULE PO SCH (10:20)
[2017-10-29] MEDS: Nitrofurantoin (BID) 100 MG CAPSULE PO SCH (10:20)
[2017-10-29] MEDS: amLODIPine 5 MG TABLET PO SCH (10:20)
[2017-10-29] MEDS: Cholecalciferol (D-3) 1,000 UNIT TABLET PO SCH (10:20)
[2017-10-29] MEDS: MICONAZOLE NITRATE TP SCH (10:21)
[2017-10-29] MEDS: Furosemide 40 MG TABLET PO SCH (10:21)
[2017-10-29] MEDS: Nystatin POWDER 30 GM BOTTLE TP SCH (10:21)
[2017-10-29 11:28] VITALS: BP 149/74
--- NOTE | 2017-10-29 13:18 | Discharge Summary ---
Orders not resulted at time of discharge: Pending orders 10/25/17 19:53 Culture,Sputum with Gram Stain [RM] Routine Date of Encounter: 10/29/17 Time of Encounter: 13:16 - Discharge Diagnosis (1) Cellulitis of left lower extremity Priority: Primary Status: Acute Comments: Symptomatic with left lower extremity edema, warmth, tenderness and erythema. Left lower extremity CT with subcutaneous edema, no fluid collections, foreign bodies or soft tissue gas. Lower extremity Doppler negative for DVT. Initially treated with ertapenem and vancomycin. Ertapenem stopped on 10/27 and switched to doxycycline. Will need to complete a total course of 10 days of Doxycycline. ID followed. (2) Community acquired pneumonia Priority: Primary Status: Acute Comments: Symptomatic with shortness of breath and cough. CXR 10/17/17 with right basilar airspace disease. Urinary antigens negative. Respiratory PCR ordered but not completed. Completed 7 day course of ertapenem and vancomycin. CXR 10/25 showed interval resolution of right basilar infiltrate. ID followed Qualifiers: Laterality: unspecified laterality Qualified Code(s): J18.9 - Pneumonia, unspecified organism (3) UTI (urinary tract infection) Priority: Primary Status: Acute Comments: urine cx with ESBL E. coli. Unclear if true infection or colonization. Completed 7 day course of ertapenem. Discharge home on Macrobid (to complete a ten-day course starting from 10/27/17). ID followed Qualifiers: Urinary tract infection type: acute cystitis Hematuria presence: without hematuria Qualified Code(s): N30.00 - Acute cystitis without hematuria (4) Allergy to multiple antibiotics Priority: Primary Status: Acute Comments: significant allergies to different antibiotics. Patient is unsure as to what the reaction is to many of them, or just doesn't know. She was evaluated by attache who administered penicillin allergy testing and patient is not allergic to penicillin. Recommend outpatient follow-up for continued allergy testing. (5) Diastolic CHF, acute on chronic Priority: Primary Status: Acute Comments: per hx. with lower extremity edema on exam but does not appear overtly overloaded. One-time dose IV Lasix on 10/25. Continue home diuretics at discharge. Educated on the importance of low sodium diet, daily weight monitoring and fluid restriction. (6) Symptomatic bradycardia Priority: Primary Status: Acute Comments: junctional bradycardia noted on ECG and episodes of frequent PVCs. Not on julian blocking agents. Cardiology recommendations for no further intervention but follow-up as outpatient (7) Diabetes mellitus type 2 with complications Priority: Secondary Status: Chronic Comments: per hx. On U-500 insulin with insulin pump at home. Blood sugars intermittently elevated when she ran out of her home insulin however blood sugars well controlled once home insulin pump was brought from home. Follow-up with PCP as previously planned. 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 Troponins negative 3. Last heart catheterization February 2016 showed mid LAD 20-30 %, mid circumflex 30%, status post BMS to OM1 90% lesion, proximal RCA 20%. On asa and statin. BB on hold for bradycardia. Evaluated by cardiology who recommended outpatient follow-up. No further cardiac testing indicated at this time. Hospital course: Ms. Feliciano is a 62 year old female with past medical history diabetes, morbid obesity, hypertension and hypothyroidism who presented to [facility] on 10/17/2017 with complaints of chest pain and progressive dyspnea. She was found to have community-acquired pneumonia as well as UTI. Hospital course complicated and prolonged with development of left lower leg extremity cellulitis requiring IV ATB. Patient has an extensive list of antibiotic allergies which made to using antibiotic difficult. She was evaluated by an attache while inpatient and was deemed not to have a penicillin allergy. Asymptomatic regarding UTI and clinically did not appear to still have pneumonia. Left lower extremity cellulitis improving at time of discharge. She was discharged home on PO Macrobid and doxycycline. Discharge discussed with: patient - Time Spent with Patient Total time spent providing and/or coordinating discharge services: Greater than 30 minutes (56 spent on discharge) - Discharge Medications Prescriptions: Doxycycline 100 mg PO BID #16 capsule Nitrofurantoin (BID) [Macrobid] 100 mg PO BIDWM #16 capsule Home Medications: Albuterol Neb [Proventil Neb] 2.5 mg IH Q6H PRN 02/07/16 [History] Albuterol Sulfate [Proventil Hfa] 2 puff IH Q4H PRN 02/07/16 [History] FLUoxetine HCl [Prozac] 10 mg PO QAM 02/07/16 [History] Insulin Regular U-500 [HumuLIN R U-500] 0 unit .ROUTE PRN PRN 02/07/16 [History ] Pregabalin [Lyrica] 75 mg PO BID 02/07/16 [History] Melatonin 10 mg PO HS #30 capsule 02/11/16 [Rx] B12/Levomefolate Calcium/B-6 [Foltx Tablet] 1 tab PO QPM 02/29/16 [History] Budesonide/Formoterol 160/4.5 [Symbicort 160/4.5] 2 puff IH BIDR 30 Days inhaler 03/03/16 [Rx] Cholecalciferol (Vitamin D3) [Dialyvite Vitamin D] 5,000 unit PO QAM 03/27/16 [ History] Omeprazole 40 mg PO QPM 03/27/16 [History] Amiodarone [Cordarone] 200 mg PO DAILY #30 tablet 04/11/16 [Rx] Acetaminophen [Tylenol] 500 mg PO Q6HR PRN 06/12/16 [History] Oxygen 2 l NS AD 06/12/16 [History] Febuxostat [Uloric] 80 mg PO DAILY 09/10/16 [History] Levothyroxine [Synthroid] 88 mcg PO DAILY 09/10/16 [History] HYDROcodone/Acet 5/325 mg [[place] 5-325 mg] 1 tab PO Q8H PRN 10/09/16 [History] Furosemide [Lasix] 40 mg PO BIDDIURETIC #60 tablet 10/16/16 [Rx] Lisinopril [Zestril] 40 mg PO DAILY #30 tablet 10/16/16 [Rx] Metoprolol XL (24 HR) Succ [Toprol Xl] 50 mg PO QAM #0 10/16/16 [Rx] Nystatin POWDER [Nystop] 1 appl TP TID #2 bottle 10/16/16 [Rx] amLODIPine [Norvasc] 10 mg PO DAILY #30 tablet 10/16/16 [Rx] Atorvastatin Calcium [Lipitor] 20 mg PO HS 01/02/17 [History] Tramadol HCl [Ultram] 50 mg PO Q4H PRN 01/02/17 [History] Docusate [Colace] 100 mg PO BID PRN #60 capsule 01/03/17 [Rx] Miconazole Nitrate [Miconazorb AF] 1 appl TP DAILY 10/20/17 [History] Doxycycline 100 mg PO BID #16 capsule 10/29/17 [Rx] Nitrofurantoin (BID) [Macrobid] 100 mg PO BIDWM #16 capsule 10/29/17 [Rx] Allergies/Adverse Reactions: 3 Allergy/AdvReac Type Severity Reaction Status Date / Time ciprofloxacin [From Cipro] Allergy Severe Anaphylaxis Verified 08/05/16 14:01 clarithromycin [From Biaxin] Allergy Severe Hives Verified 09/10/16 20:30 clonidine Allergy Severe Anaphylaxis Verified 08/05/16 14:01 levofloxacin [From Levaquin] Allergy Severe Anaphylaxis Verified 08/05/16 14:01 Tetracycline Allergy Severe Itching Verified 09/10/16 20:30 tiotropium Allergy Severe Blurry Verified 09/10/16 20:30 [From Spiriva with Vision HandiHaler] Warfarin Allergy Severe Difficulty Verified 09/10/16 20:30 Breathing Penicillins Allergy Mild Itching Verified 10/20/17 02:28 acarbose Allergy Blurry Verified 09/10/16 20:30 Vision Cefaclor Allergy Anaphylaxis Verified 04/09/16 08:47 codeine Allergy Rash Verified 09/10/16 20:30 Hydralazine Allergy Hives Verified 09/10/16 20:30 sulfamethoxazole Allergy Hives Verified 10/22/17 20:36 [From Bactrim] trimethoprim [From Bactrim] Allergy Hives Verified 10/22/17 20:36 vancomycin Allergy Itching Verified 10/20/17 02:28 atorvastatin [From Lipitor] AdvReac Muscle Pain Verified 09/10/16 20:30 fenofibrate [From Tricor] AdvReac Muscle Pain Verified 09/10/16 20:30 rivaroxaban [From Xarelto] AdvReac Gastrointestinal Verified 09/10/16 16:35 Upset Date of admission: 10/17/17 18:53 Primary care physician: Lang Jarvis DO Consults: 10/17/17 19:11 Consult to Cardiology [CONS] Routine Comment: Consulting Provider: Cardiology Addie Reason for Consult: symptomatic bradycardia Time Notified: 19:12 Call Completed: Yes 10/17/17 21:40 Consult to Pastoral Services [CONS] Routine Comment: Consult to Industrial Electrical Technician [CONS] Routine Reason for SW Consult: Financial concerns 10/24/17 10:07 Consult to Invasive Line Access Team [CONS] Routine Reason for Consult: limited access Line Type: EPIV PICC line indications: Limited vascular access 10/25/17 08:20 Consult to Infectious Diseases [CONS] Routine Consulting Provider: Infectious Disease Hooper Reason for Consult: Right lower extremity cellulitis Time Notified: 08:00 Call Completed: No 10/28/17 10:13 Consult to Allergy/Immunology [CONS] Routine Consulting Provider: Allergy Hooper Reason for Consult: multiple allergies Call Completed: Yes Discharging clinician: Jenny Reyna Anticipated date of discharge: 10/29/17 - Constitutional Vitals: Temp Pulse Resp BP Pulse Ox 97.8 F 84 18 149/74 95 10/29/17 11:21 10/29/17 11:21 10/29/17 11:21 10/29/17 11:21 10/29/17 11:21 General appearance: Present: cooperative, A&O X 3, morbidly obese, pleasant, no acute distress, answers questions appropriately - Head Head exam: Present: atraumatic, normocephalic - Eye Eye exam: Present: PERRL, conjuntiva pink, sclera anicteric Pupils: Present: PERRL - Neck Neck exam general surgery: Present: supple, trachea midline. Absent: lymphadenopathy - Respiratory Respiratory exam: Present: CTAB. Absent: accessory muscle use, rales, rhonchi, wheezes - Cardiovascular Cardiovascular exam: Present: RRR, +S1, +S2. Absent: diastolic murmur, gallop, rubs, systolic murmur - GI/Abdominal GI/Abdominal exam: Present: normal bowel sounds, soft, no peritoneal signs. Absent: distended, tenderness - Extremities Exam Extremities exam: Present: pedal edema, warm, radial pulses palpable and symmetrical. Absent: calf tenderness, cyanotic Additional comments: Left lower extremity with improving erythema, edema AND tenderness. Overall improved from yesterday's exam - Neurological Exam Neurological exam: Present: CN II-XII intact, oriented X3, no focal deficits. Absent: pronater drift, facial droop, speech deficit - Skin Skin exam: Present: dry, intact - Patient Status Disposition: Home Health Service Condition: Good Functional capacity at discharge: uses cane/walker Overall status at discharge: patient is progressing back to baseline - Discharge Instructions Instructions: Extended Spectrum Beta Lactamase (GEN), Doxycycline (By mouth), Nitrofurantoin (By mouth), Cellulitis (DC) Follow Up With: Lang Jarvis DO [Primary Care Provider] - 11/01/17 8:30 am ( ) - Diet and Activity Activity: increase activity as tolerated Diet: advance to your usual diet
--- NOTE | 2017-10-29 13:54 | Physician Discharge Referral ---
Home Health/Hosp Referral Info Transfer to: Hospice Attending Provider: Jenny Pringle CNP Provider in Charge Post Discharge: PCP - Diagnosis (1) Cellulitis of left lower extremity Status: Acute (2) Community acquired pneumonia Status: Acute (3) UTI (urinary tract infection) Status: Acute (4) Allergy to multiple antibiotics Status: Acute (5) Diastolic CHF, acute on chronic Status: Acute (6) Symptomatic bradycardia Status: Acute (7) Diabetes mellitus type 2 with complications Status: Chronic (8) Chest pain of uncertain etiology Status: Resolved - Respiratory Orders Oxygen / L per min (2) Smoking Cessation: Smoking cessation has been advised. For more information, call the [place] Tobacco Quit Line at 8-630-CNRZ-NOW. - Diet/Nutrition Diet/Nutrition Orders: No Concentrated Sweets - Activity Activity Orders: Ambulate, Walker - Services Needed Following services are medically necessary services: Nursing, Home Health Aide, Physical Therapy, Occupational Therapy - Transfer Medications Prescriptions: Doxycycline 100 mg PO BID #16 capsule Nitrofurantoin (BID) [Macrobid] 100 mg PO BIDWM #16 capsule Home Medications: Albuterol Neb [Proventil Neb] 2.5 mg IH Q6H PRN 02/07/16 [History] Albuterol Sulfate [Proventil Hfa] 2 puff IH Q4H PRN 02/07/16 [History] FLUoxetine HCl [Prozac] 10 mg PO QAM 02/07/16 [History] Insulin Regular U-500 [HumuLIN R U-500] 0 unit .ROUTE PRN PRN 02/07/16 [History ] Pregabalin [Lyrica] 75 mg PO BID 02/07/16 [History] Melatonin 10 mg PO HS #30 capsule 02/11/16 [Rx] B12/Levomefolate Calcium/B-6 [Foltx Tablet] 1 tab PO QPM 02/29/16 [History] Budesonide/Formoterol 160/4.5 [Symbicort 160/4.5] 2 puff IH BIDR 30 Days inhaler 03/03/16 [Rx] Cholecalciferol (Vitamin D3) [Dialyvite Vitamin D] 5,000 unit PO QAM 03/27/16 [ History] Omeprazole 40 mg PO QPM 03/27/16 [History] Amiodarone [Cordarone] 200 mg PO DAILY #30 tablet 04/11/16 [Rx] Acetaminophen [Tylenol] 500 mg PO Q6HR PRN 06/12/16 [History] Oxygen 2 l NS AD 06/12/16 [History] Febuxostat [Uloric] 80 mg PO DAILY 09/10/16 [History] Levothyroxine [Synthroid] 88 mcg PO DAILY 09/10/16 [History] HYDROcodone/Acet 5/325 mg [Ava 5-325 mg] 1 tab PO Q8H PRN 10/09/16 [History] Furosemide [Lasix] 40 mg PO BIDDIURETIC #60 tablet 10/16/16 [Rx] Lisinopril [Zestril] 40 mg PO DAILY #30 tablet 10/16/16 [Rx] Metoprolol XL (24 HR) Succ [Toprol Xl] 50 mg PO QAM #0 10/16/16 [Rx] Nystatin POWDER [Nystop] 1 appl TP TID #2 bottle 10/16/16 [Rx] amLODIPine [Norvasc] 10 mg PO DAILY #30 tablet 10/16/16 [Rx] Atorvastatin Calcium [Lipitor] 20 mg PO HS 01/02/17 [History] Tramadol HCl [Ultram] 50 mg PO Q4H PRN 01/02/17 [History] Docusate [Colace] 100 mg PO BID PRN #60 capsule 01/03/17 [Rx] Miconazole Nitrate [Miconazorb AF] 1 appl TP DAILY 10/20/17 [History] Doxycycline 100 mg PO BID #16 capsule 10/29/17 [Rx] Nitrofurantoin (BID) [Macrobid] 100 mg PO BIDWM #16 capsule 10/29/17 [Rx] Allergies/Adverse Reactions: 3 Allergy/AdvReac Type Severity Reaction Status Date / Time ciprofloxacin [From Cipro] Allergy Severe Anaphylaxis Verified 08/05/16 14:01 clarithromycin [From Biaxin] Allergy Severe Hives Verified 09/10/16 20:30 clonidine Allergy Severe Anaphylaxis Verified 08/05/16 14:01 levofloxacin [From Levaquin] Allergy Severe Anaphylaxis Verified 08/05/16 14:01 Tetracycline Allergy Severe Itching Verified 09/10/16 20:30 tiotropium Allergy Severe Blurry Verified 09/10/16 20:30 [From Spiriva with Vision HandiHaler] Warfarin Allergy Severe Difficulty Verified 09/10/16 20:30 Breathing Penicillins Allergy Mild Itching Verified 10/20/17 02:28 acarbose Allergy Blurry Verified 09/10/16 20:30 Vision Cefaclor Allergy Anaphylaxis Verified 04/09/16 08:47 codeine Allergy Rash Verified 09/10/16 20:30 Hydralazine Allergy Hives Verified 09/10/16 20:30 sulfamethoxazole Allergy Hives Verified 10/22/17 20:36 [From Bactrim] trimethoprim [From Bactrim] Allergy Hives Verified 10/22/17 20:36 vancomycin Allergy Itching Verified 10/20/17 02:28 atorvastatin [From Lipitor] AdvReac Muscle Pain Verified 09/10/16 20:30 fenofibrate [From Tricor] AdvReac Muscle Pain Verified 09/10/16 20:30 rivaroxaban [From Xarelto] AdvReac Gastrointestinal Verified 09/10/16 16:35 Upset Certification: Further, I certify that my clinical findings support that this patient is homebound (i.e. absences from home require considerable and taxing effort and are for medical reasons or denominational services or infrequently or short duration when for other reasons) because: Homebound Reason: Patient requires assistance of a person or device to safely leave home Attestation: My signature below is to certify that this patient is under my care and that I, or nurse practitioner, or a physician's radiology assistant working with me, has a face-to -face encounter with this patient.
[2017-10-29] MEDS ORDERED: Aminoglycoside Consult 1 EACH MC ONE (14:23)
== END 2017-10-29 14:24 | disposition home health service (06) | DRG 193 ==
LOC: EMEROO 14:43 → 3BNU 14:43 → 2NNU 18:50 → SUATTDRO 18:53 → 2NNU 19:43 → 3BNU 10-25 22:55
PROVIDERS: ADMIT Nurse Practitioner; ATTEND Hospitalist

== ENCOUNTER 2017-11-09 08:33 | Inpatient (IN) ==
[2017-11-09] MEDS ORDERED: Nitroglycerin 0.4 MG TAB.SUBL SL ONE (08:39)
[2017-11-09] MEDS ORDERED: methylPREDNISolone 125 MG/2 ML VIAL IVP ONE (08:39)
[2017-11-09] MEDS ORDERED: Furosemide 40 MG/4 ML VIAL IVP ONE (08:39)
[2017-11-09] MEDS ORDERED: Ipratropium/Albuterol Neb 3 ML IH ONE (08:39)
--- NOTE | 2017-11-09 09:17 | Emergency Department Note ---
Disposition Clinical Impression: Hypoxia, HCAP (healthcare-associated pneumonia), Respiratory distress Disposition: Admitted As Inpatient Condition: Good Forms: ED Satisfaction Letter Time of Disposition: 12:49 SOB HPI - General Chief Complaint: ED Shortness of Breath/Dyspnea Stated Complaint: Low O2 Time Seen by Provider: 11/09/17 08:39 Source: patient, family Limitations: no limitations Nursing Notes Reviewed: Yes Vital Signs Reviewed: Yes - History of Present Illness 62 year old karlo presents to the eD from cardiology office. I accepted call from Dr. Atkins. Eladio has a history of COPD and is 4LNC dependent and was 78 % at the cards office and is mordbidly obese with history of diastolic CHF and no history of PE/DVTs in the past. PAtient was most recently admitted to the hospital earlier in oct and discharge on the for pneumonia. Eladio is 88% on 4LNC and we have placed her on Bipap and is now 92%. 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 Eladio states that william has had chillls at home and a productive cough with midl chest pain without hemoptyosis. - Related Data Home Medications Medication Instructions Recorded Confirmed Albuterol Neb [Proventil Neb] 2.5 mg IH Q6H PRN 02/07/16 11/09/17 Albuterol Sulfate [Proventil Hfa] 2 puff IH Q4H PRN 02/07/16 11/09/17 Insulin Regular U-500 [HumuLIN R 0 unit .ROUTE PRN PRN 02/07/16 11/09/17 U-500] Pregabalin [Lyrica] 75 mg PO BID 02/07/16 11/09/17 B12/Levomefolate Calcium/B-6 1 tab PO QPM 02/29/16 11/09/17 [Foltx Tablet] Cholecalciferol (Vitamin D3) 5,000 unit PO QAM 03/27/16 11/09/17 [Dialyvite Vitamin D] Omeprazole 40 mg PO QPM 03/27/16 11/09/17 Acetaminophen [Tylenol] 500 mg PO Q6HR PRN 06/12/16 11/09/17 Oxygen 2 l NS AD 06/12/16 11/09/17 Febuxostat [Uloric] 80 mg PO DAILY 09/10/16 11/09/17 Levothyroxine [Synthroid] 88 mcg PO DAILY 09/10/16 11/09/17 Atorvastatin Calcium [Lipitor] 20 mg PO HS 01/02/17 11/09/17 Miconazole Nitrate [Miconazorb AF] 1 appl TP DAILY 10/20/17 11/09/17 Aspirin [Lo-Dose Aspirin EC] 81 mg PO DAILY 11/09/17 11/09/17 FLUoxetine HCl [PROzac] 20 mg PO DAILY 11/09/17 11/09/17 Montelukast [Singulair] 10 mg PO DAILY 11/09/17 11/09/17 Previous Rx's Medication Instructions Recorded Melatonin 10 mg PO HS #30 capsule 02/11/16 Budesonide/Formoterol 160/4.5 2 puff IH BIDR 30 Days inhaler 03/03/16 [Symbicort 160/4.5] Amiodarone [Cordarone] 200 mg PO DAILY #30 tablet 04/11/16 Furosemide [Lasix] 40 mg PO BIDDIURETIC #60 tablet 10/16/16 Lisinopril [Zestril] 40 mg PO DAILY #30 tablet 10/16/16 Metoprolol XL (24 HR) Succ [Toprol 50 mg PO QAM #0 10/16/16 Xl] amLODIPine [Norvasc] 10 mg PO DAILY #30 tablet 10/16/16 Docusate [Colace] 100 mg PO BID PRN #60 capsule 01/03/17 Allergies Allergy/AdvReac Type Severity Reaction Status Date / Time ciprofloxacin [From Cipro] Allergy Severe Anaphylaxis Verified 08/05/16 14:01 clarithromycin [From Biaxin] Allergy Severe Hives Verified 09/10/16 20:30 clonidine Allergy Severe Anaphylaxis Verified 08/05/16 14:01 levofloxacin [From Levaquin] Allergy Severe Anaphylaxis Verified 08/05/16 14:01 Warfarin Allergy Severe Difficulty Verified 09/10/16 20:30 Breathing Cefaclor Allergy Anaphylaxis Verified 04/09/16 08:47 codeine Allergy Rash Verified 09/10/16 20:30 Hydralazine Allergy Hives Verified 09/10/16 20:30 sulfamethoxazole Allergy Hives Verified 10/22/17 20:36 [From Bactrim] trimethoprim [From Bactrim] Allergy Hives Verified 10/22/17 20:36 tiotropium AdvReac Severe Blurry Verified 11/09/17 10:21 [From Spiriva with Vision HandiHaler] acarbose AdvReac Blurry Verified 11/09/17 10:21 Vision atorvastatin [From Lipitor] AdvReac Muscle Pain Verified 09/10/16 20:30 fenofibrate [From Tricor] AdvReac Muscle Pain Verified 09/10/16 20:30 rivaroxaban [From Xarelto] AdvReac Gastrointestinal Verified 09/10/16 16:35 Upset Constitutional: Reports: chills, weakness. Denies: fever, weight change Eyes: Denies: eye pain, eye discharge, vision change ENT ED: Denies: ear pain, throat pain, dental pain, hearing loss, epistaxis, congestion, dysphagia Cardiovascular: Reports: chest pain. Denies: palpitations, dyspnea on exertion , edema, syncope Respiratory: Reports: cough, dyspnea, wheezes. Denies: hemoptysis, stridor Gastrointestinal: Denies: abdominal pain, nausea, vomiting, diarrhea, constipation, hematemesis, melena, hematochezia Genitourinary: Denies: dysuria, frequency, hematuria, discharge Musculoskeletal: Denies: back pain, neck pain, arthralgia, myalgia Integumentary: Denies: rash, abrasion, lesions Neurological: Denies: headache, weakness, numbness, paresthesias, confusion, abnormal gait, vertigo Psychiatric: Denies: anxiety, depression, suicidal thoughts, homicidal thoughts , auditory hallucinations, visual hallucinations Endocrine: Denies: fatigue Hematological/Lymphatic: Denies: easy bleeding, easy bruising Allergic/Immunologic: Denies: facial swelling, urticaria Past Medical History - Past Medical History Medical history: Reports: atrial fibrillation, CHF, COPD, coronary artery disease, DVT, diabetes, GI bleed, hyperlipidemia, hypertension, myocardial infarction, renal disease, thyroid disease Surgical history: Reports: angioplasty/stent, other Psychiatric history: Reports: anxiety, depression [employer] 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: Reports: no [employer] 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 - Social History Smoking Status: Former smoker Smokeless Tobacco Status: No Alcohol use: Reports: none Drug use: Reports: none Physical Exam - General Limitations: no limitations General appearance: alert, in no apparent distress, obese - Head Head exam: atraumatic, normocephalic, normal inspection - Eye Eye exam: Present: normal appearance, PERRL, EOMI - Expanded Eye Exam Pupils: Bilateral: reactive - ENT ENT exam: normal exam, normal oropharynx, mucous membranes moist - Expanded ENT Exam External ear exam: Present: normal external inspection Mouth exam: Present: normal external inspection Teeth exam: Present: normal inspection Throat exam: Present: normal inspection - Neck Neck exam: Present: normal inspection, full ROM, trachea midline - Chest Chest inspection: Present: normal inspection, symmetric chest wall rise - Respiratory Respiratory exam: Present: wheezes, prolonged expiratory phase - Expanded Respiratory Exam Location: wheezes: Left, Right, Upper, Lower, rales: Left, Right, Upper, Lower - Cardiovascular Cardiovascular exam: Present: regular rate, normal rhythm, normal heart sounds - Abdominal Exam Abdominal exam: Present: soft, Non-Tender. Absent: tenderness, distention, guarding, rebound, rigidity - Extremities Exam Extremities exam: Present: normal inspection, full ROM. Absent: tenderness, pedal edema - Expanded Upper Extremity Exam Shoulder exam: Present: normal inspection, full ROM Arm exam: Present: normal inspection, full ROM Elbow exam: Present: normal inspection, full ROM Forearm/Wrist exam: Present: normal inspection, full ROM Hand exam: Present: normal inspection, full ROM Vascular exam: Normal: capillary refill, radial pulse - Expanded Lower Extremity Exam Hip/Pelvis exam: Present: normal inspection, full ROM Upper leg exam: Present: normal inspection, full ROM Knee exam: Present: normal inspection, full ROM Lower leg exam: Present: normal inspection, full ROM Ankle exam: Present: normal inspection, full ROM Foot/toe exam: Present: normal inspection, full ROM Neurovascular/Tendon exam: Absent: motor deficit, sensory deficit, tendon deficit - Back Exam Back exam: Present: normal inspection, full ROM. Absent: tenderness - Neurological Exam Neurological exam: Present: alert, oriented X3 - Expanded Neurological Exam Patient oriented to: Present: person, place, time Coma Scale Eye Opening: Spontaneous Coma Scale Motor Response: Obeys Commands Coma Scale Verbal Response: Oriented Coma Scale Total: 15 - Psychiatric Psychiatric exam: Present: normal affect, normal mood - Skin Skin exam: Present: warm, dry, intact, normal color Course Course Narrative: we will do a cardiopulmonary workup wiht CTA ches to rule out PE and Bipap for respiratory assist. We will rule out HCAP and admit to medicine. - Reevaluation(s) Reevaluation #1: updated patient on results. She is agreeable to admision. Time: 12:48 - Consultations Consultation #1: discussed case with Dr. Serra and he has accpeted patinet for admission to his service. Time: 12:48 Vital Signs Temperature 97.5 F L 11/09/17 08:38 Pulse Rate 52 11/09/17 08:38 Respiratory Rate 24 11/09/17 08:38 Blood Pressure 162/53 11/09/17 08:38 O2 Sat by Pulse Oximetry 94 11/09/17 08:38 Temperature 97.5 F L 11/09/17 08:38 Pulse Rate 50 11/09/17 12:15 Respiratory Rate 22 11/09/17 12:15 Blood Pressure 92/80 11/09/17 12:15 O2 Sat by Pulse Oximetry 94 11/09/17 12:15 Oxygen Delivery Oxygen Delivery Bipap Shortness of Breath/Dyspnea - Medical Records Medical records reviewed: Yes I reviewed the patient's medical records. - Lab Data Lab results reviewed: Yes I reviewed the patient's lab results. Result diagrams: 11/09/17 09:13 11/09/17 09:13 Lab Results 11/09/17 11/09/17 11/09/17 Range/Units 09:13 09:13 09:13 WBC (4.3-11.1) K/mcL RBC (3.82-4.97) M/mcL Hgb (11.5-15.4) g/dL Hct (35.3-44.9) % MCV (83.0-100.0) fL MCH (28.0-33.3) pg MCHC (31.6-35.5) g/dL RDW (11.5-14.5) % Plt Count (140-400) K/mcL MPV (9.4-12.4) fL Immature Gran % (0-4) % Seg Neutrophils % % Lymphocytes % % Monocytes % % Eosinophils % % Basophils % % Neutrophils # (1.6-8.9) K/mcL Lymphocytes # (0.6-4.6) K/mcL Monocytes # (0.0-1.3) K/mcL Eosinophils # (0.0-0.6) K/mcL Basophils # (0.0-0.2) K/mcL PT 13.9 H (9.4-12.1) Seconds INR 1.3 APTT 31.3 (26.0-36.0) Seconds Sodium (136-145) mEq/L Potassium (3.5-5.1) mEq/L Chloride (98-107) mEq/L Carbon Dioxide (23-29) mEq/L BUN (8-23) mg/dL Creatinine (0.60-1.20) mg/dL Est GFR ( Amer) (> 60) Est GFR (Non-Af Amer) (> 60) BUN/Creatinine Ratio (6-26) Glucose (70-105) mg/dL Calculated Osmolality (280-300) Lactic Acid (0.5-2.2) mmol/L Calcium (8.6-10.3) mg/dL Phosphorus (2.7-4.5) mg/dL Magnesium (1.6-2.6) mg/dL Total Bilirubin 0.5 (0.3-1.0) mg/dL Direct Bilirubin 0.1 (0.0-0.2) mg/dL Indirect Bilirubin 0.4 (0.0-1.2) mg/dL AST 33 (13-39) Units/L ALT 15 (7-52) Units/L Alkaline Phosphatase 142 H (34-104) Units/L Troponin I (< 0.04) ng/mL B-Natriuretic Peptide 523 H (Less than 100) pg/mL Serum Total Protein 6.4 (6.4-8.9) g/dL Albumin 3.1 L (3.5-5.7) g/dL Globulin 3.3 (2.4-3.5) g/dL Albumin/Globulin Ratio 0.9 L (1.1-2.2) Lipase 14 (11-82) Units/L 11/09/17 11/09/17 11/09/17 Range/Units 09:13 09:13 09:13 WBC 10.8 (4.3-11.1) K/mcL RBC 3.94 (3.82-4.97) M/mcL Hgb 10.4 L (11.5-15.4) g/dL Hct 34.7 L (35.3-44.9) % MCV 88.1 (83.0-100.0) fL MCH 26.4 L (28.0-33.3) pg MCHC 30.0 L (31.6-35.5) g/dL RDW 17.6 H (11.5-14.5) % Plt Count 269 (140-400) K/mcL MPV 10.6 (9.4-12.4) fL Immature Gran % 0.5 (0-4) % Seg Neutrophils % 77.1 % Lymphocytes % 9.5 % Monocytes % 5.2 % Eosinophils % 7.2 % Basophils % 0.5 % Neutrophils # 8.3 (1.6-8.9) K/mcL Lymphocytes # 1.0 (0.6-4.6) K/mcL Monocytes # 0.6 (0.0-1.3) K/mcL Eosinophils # 0.8 H (0.0-0.6) K/mcL Basophils # 0.1 (0.0-0.2) K/mcL PT (9.4-12.1) Seconds INR APTT (26.0-36.0) Seconds Sodium 133 L (136-145) mEq/L Potassium 3.7 (3.5-5.1) mEq/L Chloride 98 (98-107) mEq/L Carbon Dioxide 26 (23-29) mEq/L BUN 44 H (8-23) mg/dL Creatinine 1.56 H (0.60-1.20) mg/dL Est GFR ( Amer) 41 L (> 60) Est GFR (Non-Af Amer) 34 L (> 60) BUN/Creatinine Ratio 28 H (6-26) Glucose 79 (70-105) mg/dL Calculated Osmolality 286 (280-300) Lactic Acid 1.6 (0.5-2.2) mmol/L Calcium 8.5 L (8.6-10.3) mg/dL Phosphorus 3.2 (2.7-4.5) mg/dL Magnesium 1.5 L (1.6-2.6) mg/dL Total Bilirubin (0.3-1.0) mg/dL Direct Bilirubin (0.0-0.2) mg/dL Indirect Bilirubin (0.0-1.2) mg/dL AST (13-39) Units/L ALT (7-52) Units/L Alkaline Phosphatase (34-104) Units/L Troponin I 0.03 (< 0.04) ng/mL B-Natriuretic Peptide (Less than 100) pg/mL Serum Total Protein (6.4-8.9) g/dL Albumin (3.5-5.7) g/dL Globulin (2.4-3.5) g/dL Albumin/Globulin Ratio (1.1-2.2) Lipase (11-82) Units/L - Radiology Data Radiology results reviewed: Yes I reviewed the patient's radiology results. - EKG Data EKG results narrative: NSR with rate of 58. NO STEMI. normal intervals, sinus shlomo. no old ekg. [id number]
[2017-11-09 09:29] LABS: Basophils # 0.1 K/mcL (0.0-0.2); Basophils % 0.5 %; Eosinophils # 0.8 K/mcL (0.0-0.6); Eosinophils % 7.2 %; Hematocrit 34.7 % (35.3-44.9); Hemoglobin 10.4 g/dL (11.5-15.4); Immature Granulocytes % 0.5 % (0-4); Lymphocytes % 9.5 %; Mean Corpuscular Hemoglobin 26.4 pg (28.0-33.3); Mean Corpuscular Volume 88.1 fL (83.0-100.0); Mean Platelet Volume 10.6 fL (9.4-12.4); Monocytes # 0.6 K/mcL (0.0-1.3); Monocytes % 5.2 %; Neutrophils # 8.3 K/mcL (1.6-8.9); Platelet Count 269 K/mcL (140-400); Red Blood Count 3.94 M/mcL (3.82-4.97); Red Cell Distribution Width 17.6 % (11.5-14.5); Segmented Neutrophils % 77.1 %
[2017-11-09 09:37] LABS: INR 1.3; Prothrombin Time 13.9 Seconds (9.4-12.1)
[2017-11-09 09:40] LABS: Activated Partial Thrombo Time 31.3 Seconds (26.0-36.0)
[2017-11-09 09:49] LABS: Troponin I 0.03 ng/mL (< 0.04)
[2017-11-09 09:50] LABS: Albumin 3.1 g/dL (3.5-5.7); Albumin/Globulin Ratio 0.9 (1.1-2.2); Bilirubin,Direct 0.1 mg/dL (0.0-0.2); Bilirubin,Indirect 0.4 mg/dL (0.0-1.2); Bilirubin,Total 0.5 mg/dL (0.3-1.0); Globulin 3.3 g/dL (2.4-3.5); Total Protein 6.4 g/dL (6.4-8.9)
[2017-11-09 09:52] LABS: Calcium 8.5 mg/dL (8.6-10.3); Magnesium 1.5 mg/dL (1.6-2.6); Phosphorous 3.2 mg/dL (2.7-4.5); Potassium 3.7 mEq/L (3.5-5.1)
[2017-11-09] MEDS ORDERED: Aztreonam 2,000 MG in Water for inj. (sterile) 20 ML IVPB STA (09:55)
[2017-11-09] MEDS ORDERED: Gentamicin 80 MG in 0.9 % Sodium Chloride 100 ML IVPB STA (09:55)
[2017-11-09] MEDS ORDERED: Magnesium Sulfate 1 GM in 0.9 % Sodium Chloride 50 ML IVPB ONE (10:10)
[2017-11-09] MEDS ORDERED: *HR* Promethazine 25 MG/ML VIAL IVP PRN (14:02)
[2017-11-09] MEDS ORDERED: *HR* HYDROcodone/Acet 5/325 mg TABLET PO PRN (14:02)
[2017-11-09] MEDS ORDERED: Naloxone 0.4 MG/ML INJ IVP PRN (14:02)
[2017-11-09] MEDS ORDERED: Ondansetron 4 MG/2 ML VIAL IVP PRN (14:02)
--- NOTE | 2017-11-09 14:24 | Internal Med History&Physical ---
Date of Encounter: 11/09/17 Time of Encounter: 13:00 Assessment and Plan (1) HCAP (healthcare-associated pneumonia) Current visit: Yes Status: Acute Admit the pt into Tele Reviewed CXR by myself showing RML and RLL infiltrates RML seems to be new compare to old one V/Q scan low prob for PE Since pt is allergic to multiple abx will place her on Vanco and Doxy for now cont close monitoring sent for Sputum cx, Strep PNA, Legionella and Resp viral panel Blood cx drawn in the ER (2) Acute and chronic respiratory failure with hypoxia Current visit: No Status: Chronic V/Q scan low probability for PE Cont OFE Duoneb + BiPAP Use BiPAP continuously for next 24hrs Ok to take it off for diet (3) Acute and chronic respiratory failure with hypercapnia Current visit: Yes Status: Acute (4) Acute exacerbation of chronic obstructive airways disease Current visit: No Status: Acute on High dose IV steroids Duoneb + O2 (5) Paroxysmal a-fib Current visit: No Status: Chronic rate controlled on Metoprolol and Amiodarone Noticed she is not on any anti coag.. she is allergic to Coumadin Morning team will reach out to his Card and PCP about anti coag (6) Acute kidney injury superimposed on chronic kidney disease Current visit: No Status: Acute Slightly elevated Cr Held Diuretics and Nephro toxic meds Renally dosed abx Internal Medicine - H&P: HPI Chief complaint: Shortness of breath Admitted From: Emergency Dept Plans for Post Hospital Care: Home History of present illness: Ms. 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 Pt was placed on BiPAP initially and her O2 sats improved now. She denied any CP. She still has cough with greenish expectoration. Pt stated she never got better since she left the hospital on 10/29/17. Her CXR showed new infiltrate on RLL Past Med Surg Social Fam HX - Past Medical History Medical history: atrial fibrillation, CHF, COPD, coronary artery disease, DVT, diabetes, GI bleed, hyperlipidemia, hypertension, myocardial infarction, renal disease, thyroid disease Psychiatric history: anxiety, depression - Past Surgical History Surgical History: angioplasty/stent, other - Social History Smoking Status: Former smoker Smokeless Tobacco Status: No Alcohol use: none Drug use: none - Family History Mother Family Member Ethnicity: Non- Living Status: Still Living Hx Family Cardiac Disorders: Yes Hx Family Neurologic Disorders: Yes ("mini strokes") Brother Living Status: Hx Family Cancer: Yes (colon cancer) Son Living Status: Still Living Hx Family GI Disorders: Yes (high grade dysplasia polyps) Father Adopted: No Family Member Ethnicity: Non- Living Status: Hx Family Cardiac Disorders: Yes Hx Family Respiratory Disorders: Yes (COPD) Hx Family Cancer: No Hx Family GI Disorders: No Hx Family Endocrine Disorder: No Hx Family Neuromuscular Disorders: No Hx Family Neurologic Disorders: No Hx Family HEENT Disorders: No Hx Family Autoimmune Disorders: No Internal Medicine - H&P: Meds Albuterol Neb [Proventil Neb] 2.5 mg IH Q6H PRN 02/07/16 [History] Albuterol Sulfate [Proventil Hfa] 2 puff IH Q4H PRN 02/07/16 [History] Insulin Regular U-500 [HumuLIN R U-500] 0 unit .ROUTE PRN PRN 02/07/16 [History ] Pregabalin [Lyrica] 75 mg PO BID 02/07/16 [History] Melatonin 10 mg PO HS #30 capsule 02/11/16 [Rx] B12/Levomefolate Calcium/B-6 [Foltx Tablet] 1 tab PO QPM 02/29/16 [History] Budesonide/Formoterol 160/4.5 [Symbicort 160/4.5] 2 puff IH BIDR 30 Days inhaler 03/03/16 [Rx] Cholecalciferol (Vitamin D3) [Dialyvite Vitamin D] 5,000 unit PO QAM 03/27/16 [ History] Omeprazole 40 mg PO QPM 03/27/16 [History] Amiodarone [Cordarone] 200 mg PO DAILY #30 tablet 04/11/16 [Rx] Acetaminophen [Tylenol] 500 mg PO Q6HR PRN 06/12/16 [History] Oxygen 2 l NS AD 06/12/16 [History] Febuxostat [Uloric] 80 mg PO DAILY 09/10/16 [History] Levothyroxine [Synthroid] 88 mcg PO DAILY 09/10/16 [History] Furosemide [Lasix] 40 mg PO BIDDIURETIC #60 tablet 10/16/16 [Rx] Lisinopril [Zestril] 40 mg PO DAILY #30 tablet 10/16/16 [Rx] Metoprolol XL (24 HR) Succ [Toprol Xl] 50 mg PO QAM #0 10/16/16 [Rx] amLODIPine [Norvasc] 10 mg PO DAILY #30 tablet 10/16/16 [Rx] Atorvastatin Calcium [Lipitor] 20 mg PO HS 01/02/17 [History] Docusate [Colace] 100 mg PO BID PRN #60 capsule 01/03/17 [Rx] Miconazole Nitrate [Miconazorb AF] 1 appl TP DAILY 10/20/17 [History] Aspirin [Lo-Dose Aspirin EC] 81 mg PO DAILY 11/09/17 [History] FLUoxetine HCl [PROzac] 20 mg PO DAILY 11/09/17 [History] Montelukast [Singulair] 10 mg PO DAILY 11/09/17 [History] 3 Allergy/AdvReac Type Severity Reaction Status Date / Time ciprofloxacin [From Cipro] Allergy Severe Anaphylaxis Verified 08/05/16 14:01 clarithromycin [From Biaxin] Allergy Severe Hives Verified 09/10/16 20:30 clonidine Allergy Severe Anaphylaxis Verified 08/05/16 14:01 levofloxacin [From Levaquin] Allergy Severe Anaphylaxis Verified 08/05/16 14:01 Warfarin Allergy Severe Difficulty Verified 09/10/16 20:30 Breathing Cefaclor Allergy Anaphylaxis Verified 04/09/16 08:47 codeine Allergy Rash Verified 09/10/16 20:30 Hydralazine Allergy Hives Verified 09/10/16 20:30 sulfamethoxazole Allergy Hives Verified 10/22/17 20:36 [From Bactrim] trimethoprim [From Bactrim] Allergy Hives Verified 10/22/17 20:36 tiotropium AdvReac Severe Blurry Verified 11/09/17 10:21 [From Spiriva with Vision HandiHaler] acarbose AdvReac Blurry Verified 03/06/18 10:21 Vision atorvastatin [From Lipitor] AdvReac Muscle Pain Verified 09/10/16 20:30 fenofibrate [From Tricor] AdvReac Muscle Pain Verified 09/10/16 20:30 rivaroxaban [From Xarelto] AdvReac Gastrointestinal Verified 09/10/16 16:35 Upset All Systems PM: A 10-system review of systems was performed and is negative for pertinent findings except as documented above in the HPI. Review of systems: All the systems are reviewed everything is benign except the systems and symptoms I mentioned in the history of present illness - Constitutional Vitals: Temp Pulse Resp BP Pulse Ox 97.5 F L 66 18 143/56 95 11/09/17 14:12 11/09/17 14:12 11/09/17 14:12 11/09/17 14:12 11/09/17 14:12 General appearance: Present: cooperative, mild distress, A&O X 3, answers questions appropriately - Head Head exam: Present: atraumatic, normal inspection - Neck Neck exam general surgery: Present: supple - Respiratory Respiratory exam: Present: decreased breath sounds, respiratory distress ( moderate), wheezes (diffuse). Absent: rales, rhonchi - Cardiovascular Cardiovascular exam: Present: RRR, +S1, +S2 - GI/Abdominal GI/Abdominal exam: Present: normal bowel sounds, soft. Absent: rebound, rigid, tenderness - Extremities Exam Extremities exam: Absent: calf tenderness, pedal edema, tenderness - Back Exam Back exam: Absent: CVA tenderness (L), CVA tenderness (R) - Neurological Exam Neurological exam: Present: alert, oriented X3 - Psychiatric Psychiatric exam: Present: anxious - Skin Skin exam: Absent: rash Internal Med - H&P Results - Labs CBC & Chem 7: 11/09/17 09:13 11/09/17 09:13
--- NOTE | 2017-11-09 14:34 | Electrocardiograph Report ---
[place] [facility] Test Date: 2017-11-09 Pat Name: Ahsley Feliciano Department: 102 Room: [id number] Gender: F Behaviorist: : 1955 Requested By: Alley Atwood Order Number: [id number] Reading MD: Darrius Myles MD Measurements Intervals [place] Rate: 58 P: CT: 0 QRS: -63 QRSD: 146 T: 73 QT: 471 QTc: 467 Interpretive Statements UNCERTAIN REGULAR RHYTHM INTRAVENTRICULAR CONDUCTION DELAY [130+ ms QRS DURATION] Electronically Signed On 11-09-2017 14:32:55 EST by Darrius Myles MD
[2017-11-09] MEDS ORDERED: NON-FORMULARY MEDICATION 1 EACH EACH (Oxygen [Oxygen] 2 L) NS SCH (14:45)
[2017-11-09] MEDS: Doxycycline 100 MG in 0.9 % Sodium Chloride Mini Bag 100 ML IVPB SCH (17:53)
[2017-11-09] MEDS: Vitamin B Complex/Vit C/Vit E 1 EACH TABLET PO SCH (17:53)
[2017-11-09] MEDS: MethylPREDNISolone 40 MG/ML VIAL IVP SCH (17:53)
[2017-11-09] MEDS: *HR* Amiodarone 200 MG TABLET PO SCH (18:11)
[2017-11-09] MEDS: Budesonide/Formoterol 160/4.5 MDI IH SCH (19:50)
[2017-11-09 20:20] LABS: Adenovirus Not Detected (Not Detect); Bordetella Pertussis Not Detected (Not Detect); Chlamydophila pneumoniae Not Detected (Not Detect); Coronavirus 229E Not Detected (Not Detect); Coronavirus HKU1 Not Detected (Not Detect); Coronavirus NL63 Not Detected (Not Detect); Coronavirus OC43 Not Detected (Not Detect); Human Metapneumovirus Not Detected (Not Detect); Human Rhinovirus/Enterovirus Not Detected (Not Detect); Influenza A Subtype 2009 H1 Not Detected (Not Detect); Influenza A Untypeable Not Detected (Not Detect); Influenza B Not Detected (Not Detect); Mycoplasma pneumoniae Not Detected (Not Detect); Parainfluenza Virus 1 Not Detected (Not Detect); Parainfluenza Virus 2 Not Detected (Not Detect); Parainfluenza Virus 3 Not Detected (Not Detect); Parainfluenza Virus 4 Not Detected (Not Detect); Respiratory Syncytial Virus Not Detected (Not Detect)
[2017-11-09] MEDS: Melatonin 3 MG TABLET PO SCH (20:24)
[2017-11-09] MEDS: Pregabalin 75 MG CAPSULE PO SCH (20:24)
[2017-11-09] MEDS: Acetaminophen 325 MG TABLET PO PRN (20:41)
[2017-11-09] MEDS: Ipratropium/Albuterol Neb 3 ML IH SCH ×2 (21:59→22:58)
[2017-11-10] MEDS: MethylPREDNISolone 40 MG/ML VIAL IVP SCH ×5 (00:25→23:59)
[2017-11-10 03:12] LABS: Basophils % 0.1 %; Hematocrit 33.7 % (35.3-44.9); Hemoglobin 10.1 g/dL (11.5-15.4); Lymphocytes # 0.4 K/mcL (0.6-4.6); Lymphocytes % 5.5 %; Mean Corpuscular Hemoglobin 26.2 pg (28.0-33.3); Mean Corpuscular Volume 87.3 fL (83.0-100.0); Mean Platelet Volume 10.6 fL (9.4-12.4); Monocytes # 0.1 K/mcL (0.0-1.3); Monocytes % 1.7 %; Neutrophils # 7.4 K/mcL (1.6-8.9); Platelet Count 223 K/mcL (140-400); Red Blood Count 3.86 M/mcL (3.82-4.97); Red Cell Distribution Width 17.2 % (11.5-14.5); Segmented Neutrophils % 91.7 %
[2017-11-10] MEDS: Ipratropium/Albuterol Neb 3 ML IH SCH ×6 (03:38→23:13)
[2017-11-10 03:43] LABS: Calcium 8.4 mg/dL (8.6-10.3); Magnesium 1.7 mg/dL (1.6-2.6); Potassium 4.9 mEq/L (3.5-5.1)
[2017-11-10] MEDS: Doxycycline 100 MG in 0.9 % Sodium Chloride Mini Bag 100 ML IVPB SCH ×2 (05:39→17:20)
[2017-11-10] MEDS: *HR* Enoxaparin 40 MG/0.4 ML SYRINGE SQ SCH (05:41)
[2017-11-10] MEDS: Budesonide/Formoterol 160/4.5 MDI IH SCH ×2 (07:39→20:00)
[2017-11-10 07:56] LABS: ABG Base Excess 2 mEq/L (-2 to 3); ABG HCO3 29 mEq/L (21-27); ABG Oxygen Saturation 67 % (95-98); ABG PCO2 59 mmHg (35-45); ABG PH 7.31 pH Units (7.32-7.45); ABG PO2 39 mmHg (85-104); ABG TCO2 31 mEq/L (20-26)
[2017-11-10 08:07] LABS: ABG Base Excess 2 mEq/L (-2 to 3); ABG HCO3 29 mEq/L (21-27); ABG Oxygen Saturation 96 % (95-98); ABG PCO2 53 mmHg (35-45); ABG PH 7.34 pH Units (7.32-7.45); ABG PO2 87 mmHg (85-104); ABG TCO2 30 mEq/L (20-26)
[2017-11-10] MEDS: *HR* Amiodarone 200 MG TABLET PO SCH (08:19)
[2017-11-10] MEDS: Aspirin Enteric Coated 81 MG Tablet PO SCH (08:19)
[2017-11-10] MEDS: FLUoxetine 20 MG CAPSULE PO SCH (08:19)
[2017-11-10] MEDS: Metoprolol XL (24 HR) Succ 50 MG TAB.ER.24H PO SCH (08:19)
[2017-11-10] MEDS: amLODIPine 5 MG TABLET PO SCH (08:19)
[2017-11-10] MEDS: Cholecalciferol (D-3) 1,000 UNIT TABLET PO SCH (08:19)
[2017-11-10] MEDS: MICONAZOLE NITRATE APPL TP SCH (08:20)
[2017-11-10] MEDS: Pregabalin 75 MG CAPSULE PO SCH ×2 (08:20→21:26)
[2017-11-10] MEDS ORDERED: (Febuxostat [Uloric] 80 MG) PO SCH (09:00)
[2017-11-10] MEDS ORDERED: Lisinopril 20 MG TABLET PO SCH (09:00)
[2017-11-10] MEDS ORDERED: *HR* Dextrose 50 % in Water (Syg) 50 ML SYRINGE IVP PRN (09:51)
[2017-11-10] MEDS ORDERED: D5% in Water 1,000 ML IVC PRN (09:51)
[2017-11-10] MEDS ORDERED: Dextrose Gel 15 GM/37.5 ML TUBE PO PRN ×2 (09:51)
--- NOTE | 2017-11-10 10:05 | Internal Med Progress Note ---
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 Pt was placed on BiPAP initially and her O2 sats improved now. She denied any CP. She still has cough with greenish expectoration. Pt stated she never got better since she left the hospital on 10/29/17. Her CXR showed new infiltrate on RLL Assessment and Plan (1) HCAP (healthcare-associated pneumonia) CXR showed RML and RLL infiltrates RML seems to be new compare to old one V/Q scan low prob for PE Since pt is allergic to multiple abx will place her on Vanco, Aztreonam and Doxy Sputum cx, Strep PNA, Legionella and Resp viral panel (-) Blood cx pending (2) Acute and chronic respiratory failure with hypoxia V/Q scan low probability for PE Cont OFE Duoneb + BiPAP Use BiPAP continuously for next 24hrs (3) Acute exacerbation of chronic obstructive airways disease on High dose IV steroids Duoneb + O2 (4) Paroxysmal a-fib Rate controlled on Metoprolol and Amiodarone Not on Anticoagulation due to previous GIB (6) History of GIB: Not on A/c for A-Fib (7) CHF: Lasix started 40 mg IVP BID - Constitutional Vitals: Temp Pulse Resp BP Pulse Ox 97.5 F L 47 18 169/52 96 11/10/17 07:00 11/10/17 07:00 11/10/17 07:39 11/10/17 07:00 11/10/17 07:39 General appearance: Present: cooperative, mild distress, A&O X 3, answers questions appropriately - Head Head exam: Present: atraumatic, normocephalic - Eye Eye exam: Present: PERRL, conjuntiva pink, sclera anicteric Pupils: Present: PERRL - Neck Neck exam general surgery: Present: supple, trachea midline. Absent: lymphadenopathy, nuchal rigidity - Respiratory Respiratory exam: Present: CTAB. Absent: accessory muscle use, rales, rhonchi, wheezes - Cardiovascular Cardiovascular exam: Present: irregular rhythm, +S1, +S2. Absent: diastolic murmur, gallop, RRR, rubs, systolic murmur - GI/Abdominal GI/Abdominal exam: Present: normal bowel sounds, soft, no peritoneal signs. Absent: distended, guarding, tenderness - Extremities Exam Extremities exam: Present: warm, radial pulses palpable and symmetrical. Absent : calf tenderness, cyanotic, pedal edema - Neurological Exam Neurological exam: Present: CN II-XII intact, oriented X3, no focal deficits. Absent: pronater drift, facial droop, speech deficit - Skin Skin exam: Present: dry, intact Internal Medicine: Result - Labs CBC & Chem 7: 11/10/17 03:00 11/10/17 03:00 Labs: Short CBC 11/09/17 11/09/17 11/09/17 Range/Units 16:30 18:51 20:16 WBC (4.3-11.1) K/mcL RBC (3.82-4.97) M/mcL Hgb (11.5-15.4) g/dL Hct (35.3-44.9) % MCV (83.0-100.0) fL MCH (28.0-33.3) pg MCHC (31.6-35.5) g/dL RDW (11.5-14.5) % Plt Count (140-400) K/mcL MPV (9.4-12.4) fL Immature Gran % (0-4) % Seg Neutrophils % % Lymphocytes % % Monocytes % % Eosinophils % % Basophils % % Neutrophils # (1.6-8.9) K/mcL Lymphocytes # (0.6-4.6) K/mcL Monocytes # (0.0-1.3) K/mcL Eosinophils # (0.0-0.6) K/mcL Basophils # (0.0-0.2) K/mcL ABG pH (7.32-7.45) pH Units ABG pCO2 (35-45) mmHg ABG pO2 (85-104) mmHg ABG HCO3 (21-27) mEq/L ABG Total CO2 (20-26) mEq/L ABG O2 Saturation (95-98) % ABG Base Excess (-2 to 3) mEq/L O2 Delivery Device Inspired O2 (1-15=lpm [id number]=%) Sodium (136-145) mEq/L Potassium (3.5-5.1) mEq/L Chloride (98-107) mEq/L Carbon Dioxide (23-29) mEq/L BUN (8-23) mg/dL Creatinine (0.60-1.20) mg/dL Est GFR ( Amer) (> 60) Est GFR (Non-Af Amer) (> 60) BUN/Creatinine Ratio (6-26) Glucose (70-105) mg/dL POC Glucose 297 H 415 H* (58-89) Calculated Osmolality (280-300) Calcium (8.6-10.3) mg/dL Magnesium (1.6-2.6) mg/dL B-Natriuretic Peptide (Less than 100) pg/mL Chlamy pneumoniae PCR Not Detected (Not Detect) Adenovirus (PCR) Not Detected (Not Detect) B. pertussis DNA (PCR) Not Detected (Not Detect) B.parapertussis DNA PCR Not Detected (Not Detect) Coronavirus OC43 (PCR) Not Detected (Not Detect) Coronavirus HKU1 (PCR) Not Detected (Not Detect) Coronavirus 229E (PCR) Not Detected (Not Detect) Coronavirus NL63 (PCR) Not Detected (Not Detect) Human Metapneumovir PCR Not Detected (Not Detect) Influenza A (H1) PCR Not Detected (Not Detect) Influ A (H1N1/09) PCR Not Detected (Not Detect) Influenza A (H3) PCR Not Detected (Not Detect) Influenza A Untype (PCR) Not Detected (Not Detect) Influenza Type B (PCR) Not Detected (Not Detect) M.pneumoniae DNA (PCR) Not Detected (Not Detect) Parainfluenza 1 (PCR) Not Detected (Not Detect) Parainfluenza 2 (PCR) Not Detected (Not Detect) Parainfluenza 3 (PCR) Not Detected (Not Detect) Parainfluenza 4 (PCR) Not Detected (Not Detect) RSV (PCR) Not Detected (Not Detect) Entero/Rhino (PCR) Not Detected (Not Detect) 11/09/17 11/10/17 11/10/17 Range/Units 20:17 03:00 03:00 WBC 8.1 (4.3-11.1) K/mcL RBC 3.86 (3.82-4.97) M/mcL Hgb 10.1 L (11.5-15.4) g/dL Hct 33.7 L (35.3-44.9) % MCV 87.3 (83.0-100.0) fL MCH 26.2 L (28.0-33.3) pg MCHC 30.0 L (31.6-35.5) g/dL RDW 17.2 H (11.5-14.5) % Plt Count 223 (140-400) K/mcL MPV 10.6 (9.4-12.4) fL Immature Gran % 1.0 (0-4) % Seg Neutrophils % 91.7 % Lymphocytes % 5.5 % Monocytes % 1.7 % Eosinophils % 0.0 % Basophils % 0.1 % Neutrophils # 7.4 (1.6-8.9) K/mcL Lymphocytes # 0.4 L (0.6-4.6) K/mcL Monocytes # 0.1 (0.0-1.3) K/mcL Eosinophils # 0.0 (0.0-0.6) K/mcL Basophils # 0.0 (0.0-0.2) K/mcL ABG pH (7.32-7.45) pH Units ABG pCO2 (35-45) mmHg ABG pO2 (85-104) mmHg ABG HCO3 (21-27) mEq/L ABG Total CO2 (20-26) mEq/L ABG O2 Saturation (95-98) % ABG Base Excess (-2 to 3) mEq/L O2 Delivery Device Inspired O2 (1-15=lpm eh22-140=%) Sodium 129 L (136-145) mEq/L Potassium 4.9 D (3.5-5.1) mEq/L Chloride 97 L (98-107) mEq/L Carbon Dioxide 25 (23-29) mEq/L BUN 49 H (8-23) mg/dL Creatinine 1.48 H (0.60-1.20) mg/dL Est GFR ( Amer) 43 L (> 60) Est GFR (Non-Af Amer) 36 L (> 60) BUN/Creatinine Ratio 33 H (6-26) Glucose 394 H (70-105) mg/dL POC Glucose 395 H (58-89) Calculated Osmolality 297 (280-300) Calcium 8.4 L (8.6-10.3) mg/dL Magnesium 1.7 (1.6-2.6) mg/dL B-Natriuretic Peptide (Less than 100) pg/mL Chlamy pneumoniae PCR (Not Detect) Adenovirus (PCR) (Not Detect) B. pertussis DNA (PCR) (Not Detect) B.parapertussis DNA PCR (Not Detect) Coronavirus OC43 (PCR) (Not Detect) Coronavirus HKU1 (PCR) (Not Detect) Coronavirus 229E (PCR) (Not Detect) Coronavirus NL63 (PCR) (Not Detect) Human Metapneumovir PCR (Not Detect) Influenza A (H1) PCR (Not Detect) Influ A (H1N1/09) PCR (Not Detect) Influenza A (H3) PCR (Not Detect) Influenza A Untype (PCR) (Not Detect) Influenza Type B (PCR) (Not Detect) M.pneumoniae DNA (PCR) (Not Detect) Parainfluenza 1 (PCR) (Not Detect) Parainfluenza 2 (PCR) (Not Detect) Parainfluenza 3 (PCR) (Not Detect) Parainfluenza 4 (PCR) (Not Detect) RSV (PCR) (Not Detect) Entero/Rhino (PCR) (Not Detect) 11/10/17 11/10/17 11/10/17 Range/Units 03:00 07:34 07:52 WBC (4.3-11.1) K/mcL RBC (3.82-4.97) M/mcL Hgb (11.5-15.4) g/dL Hct (35.3-44.9) % MCV (83.0-100.0) fL MCH (28.0-33.3) pg MCHC (31.6-35.5) g/dL RDW (11.5-14.5) % Plt Count (140-400) K/mcL MPV (9.4-12.4) fL Immature Gran % (0-4) % Seg Neutrophils % % Lymphocytes % % Monocytes % % Eosinophils % % Basophils % % Neutrophils # (1.6-8.9) K/mcL Lymphocytes # (0.6-4.6) K/mcL Monocytes # (0.0-1.3) K/mcL Eosinophils # (0.0-0.6) K/mcL Basophils # (0.0-0.2) K/mcL ABG pH 7.31 L (7.32-7.45) pH Units ABG pCO2 59 H (35-45) mmHg ABG pO2 39 L* (85-104) mmHg ABG HCO3 29 H (21-27) mEq/L ABG Total CO2 31 H (20-26) mEq/L ABG O2 Saturation 67 L (95-98) % ABG Base Excess 2 (-2 to 3) mEq/L O2 Delivery Device Cannula Inspired O2 4.0 (1-15=lpm fg11-702=%) Sodium (136-145) mEq/L Potassium (3.5-5.1) mEq/L Chloride (98-107) mEq/L Carbon Dioxide (23-29) mEq/L BUN (8-23) mg/dL Creatinine (0.60-1.20) mg/dL Est GFR ( Amer) (> 60) Est GFR (Non-Af Amer) (> 60) BUN/Creatinine Ratio (6-26) Glucose (70-105) mg/dL POC Glucose 340 H (58-89) Calculated Osmolality (280-300) Calcium (8.6-10.3) mg/dL Magnesium (1.6-2.6) mg/dL B-Natriuretic Peptide 1119 H (Less than 100) pg/mL Chlamy pneumoniae PCR (Not Detect) Adenovirus (PCR) (Not Detect) B. pertussis DNA (PCR) (Not Detect) B.parapertussis DNA PCR (Not Detect) Coronavirus OC43 (PCR) (Not Detect) Coronavirus HKU1 (PCR) (Not Detect) Coronavirus 229E (PCR) (Not Detect) Coronavirus NL63 (PCR) (Not Detect) Human Metapneumovir PCR (Not Detect) Influenza A (H1) PCR (Not Detect) Influ A (H1N1/09) PCR (Not Detect) Influenza A (H3) PCR (Not Detect) Influenza A Untype (PCR) (Not Detect) Influenza Type B (PCR) (Not Detect) M.pneumoniae DNA (PCR) (Not Detect) Parainfluenza 1 (PCR) (Not Detect) Parainfluenza 2 (PCR) (Not Detect) Parainfluenza 3 (PCR) (Not Detect) Parainfluenza 4 (PCR) (Not Detect) RSV (PCR) (Not Detect) Entero/Rhino (PCR) (Not Detect) 11/10/17 Range/Units 08:03 WBC (4.3-11.1) K/mcL RBC (3.82-4.97) M/mcL Hgb (11.5-15.4) g/dL Hct (35.3-44.9) % MCV (83.0-100.0) fL MCH (28.0-33.3) pg MCHC (31.6-35.5) g/dL RDW (11.5-14.5) % Plt Count (140-400) K/mcL MPV (9.4-12.4) fL Immature Gran % (0-4) % Seg Neutrophils % % Lymphocytes % % Monocytes % % Eosinophils % % Basophils % % Neutrophils # (1.6-8.9) K/mcL Lymphocytes # (0.6-4.6) K/mcL Monocytes # (0.0-1.3) K/mcL Eosinophils # (0.0-0.6) K/mcL Basophils # (0.0-0.2) K/mcL ABG pH 7.34 (7.32-7.45) pH Units ABG pCO2 53 H (35-45) mmHg ABG pO2 87 D (85-104) mmHg ABG HCO3 29 H (21-27) mEq/L ABG Total CO2 30 H (20-26) mEq/L ABG O2 Saturation 96 (95-98) % ABG Base Excess 2 (-2 to 3) mEq/L O2 Delivery Device Inspired O2 4.0 (1-15=lpm nq27-901=%) Sodium (136-145) mEq/L Potassium (3.5-5.1) mEq/L Chloride (98-107) mEq/L Carbon Dioxide (23-29) mEq/L BUN (8-23) mg/dL Creatinine (0.60-1.20) mg/dL Est GFR ( Amer) (> 60) Est GFR (Non-Af Amer) (> 60) BUN/Creatinine Ratio (6-26) Glucose (70-105) mg/dL POC Glucose (58-89) Calculated Osmolality (280-300) Calcium (8.6-10.3) mg/dL Magnesium (1.6-2.6) mg/dL B-Natriuretic Peptide (Less than 100) pg/mL Chlamy pneumoniae PCR (Not Detect) Adenovirus (PCR) (Not Detect) B. pertussis DNA (PCR) (Not Detect) B.parapertussis DNA PCR (Not Detect) Coronavirus OC43 (PCR) (Not Detect) Coronavirus HKU1 (PCR) (Not Detect) Coronavirus 229E (PCR) (Not Detect) Coronavirus NL63 (PCR) (Not Detect) Human Metapneumovir PCR (Not Detect) Influenza A (H1) PCR (Not Detect) Influ A (H1N1/09) PCR (Not Detect) Influenza A (H3) PCR (Not Detect) Influenza A Untype (PCR) (Not Detect) Influenza Type B (PCR) (Not Detect) M.pneumoniae DNA (PCR) (Not Detect) Parainfluenza 1 (PCR) (Not Detect) Parainfluenza 2 (PCR) (Not Detect) Parainfluenza 3 (PCR) (Not Detect) Parainfluenza 4 (PCR) (Not Detect) RSV (PCR) (Not Detect) Entero/Rhino (PCR) (Not Detect) BMP 11/10/17 03:00 Sodium 129 L Potassium 4.9 D Chloride 97 L Carbon Dioxide 25 BUN 49 H Creatinine 1.48 H Glucose 394 H Calcium 8.4 L - ABG Interpretation ABG results: ABG ABG pH 7.34 pH Units (7.32-7.45) 11/10/17 08:03 ABG pCO2 53 mmHg (35-45) H 11/10/17 08:03 ABG pO2 87 mmHg (85-104) D 11/10/17 08:03 ABG O2 Saturation 96 % (95-98) 11/10/17 08:03 PT/INR, D-dimer PT 13.9 Seconds (9.4-12.1) H 11/09/17 09:13 Consult Discharge Plan - Plan Referrals: Mary Stanford MD [Partnered Physician] - 11/29/17 11:15 am Betty Cordova MD [Partnered Physician] - 11/29/17 9:00 am Lang Jarvis DO [Primary Care Provider] - 11/18/17 11:30 am
[2017-11-10] MEDS: Furosemide 40 MG/4 ML VIAL IVP SCH ×2 (11:15→17:20)
[2017-11-10] MEDS: Patient Taking Own Medication 1 EACH SQ SCH (11:16)
[2017-11-10 11:32] LABS: Hemoglobin A1C 8.4 %
[2017-11-10] MEDS: Vitamin B Complex/Vit C/Vit E 1 EACH TABLET PO SCH (17:20)
[2017-11-10] MEDS: Melatonin 3 MG TABLET PO SCH (21:26)
[2017-11-10] MEDS: Acetaminophen 325 MG TABLET PO PRN (23:59)
[2017-11-11] MEDS: Ipratropium/Albuterol Neb 3 ML IH SCH ×6 (03:59→23:33)
[2017-11-11] MEDS: Acetaminophen 325 MG TABLET PO PRN ×2 (06:06→22:17)
[2017-11-11] MEDS: Doxycycline 100 MG in 0.9 % Sodium Chloride Mini Bag 100 ML IVPB SCH ×2 (06:07→17:04)
[2017-11-11] MEDS: *HR* Enoxaparin 40 MG/0.4 ML SYRINGE SQ SCH (06:07)
[2017-11-11] MEDS: MethylPREDNISolone 40 MG/ML VIAL IVP SCH ×4 (06:07→23:18)
[2017-11-11] MEDS: Budesonide/Formoterol 160/4.5 MDI IH SCH ×2 (07:41→19:56)
[2017-11-11] MEDS: (Febuxostat [Uloric] 80 MG) PO SCH (08:26)
[2017-11-11] MEDS: Aspirin Enteric Coated 81 MG Tablet PO SCH (08:26)
[2017-11-11] MEDS: FLUoxetine 20 MG CAPSULE PO SCH (08:26)
[2017-11-11] MEDS: *HR* Amiodarone 200 MG TABLET PO SCH (08:26)
[2017-11-11] MEDS: amLODIPine 5 MG TABLET PO SCH (08:26)
[2017-11-11] MEDS: Patient Taking Own Medication 1 EACH SQ SCH (08:26)
[2017-11-11] MEDS: MICONAZOLE NITRATE APPL TP SCH (08:26)
[2017-11-11] MEDS: Pregabalin 75 MG CAPSULE PO SCH ×2 (08:26→22:00)
[2017-11-11] MEDS: Cholecalciferol (D-3) 1,000 UNIT TABLET PO SCH (08:26)
[2017-11-11] MEDS: Furosemide 40 MG/4 ML VIAL IVP SCH ×2 (08:26→17:03)
[2017-11-11] MEDS: Metoprolol XL (24 HR) Succ 50 MG TAB.ER.24H PO SCH (08:26)
[2017-11-11 08:33] LABS: Basophils % 0.1 %; Hematocrit 36.2 % (35.3-44.9); Hemoglobin 10.7 g/dL (11.5-15.4); Immature Granulocytes % 0.6 % (0-4); Lymphocytes # 0.5 K/mcL (0.6-4.6); Lymphocytes % 3.8 %; Mean Corpuscular HGB Conc 29.6 g/dL (31.6-35.5); Mean Corpuscular Hemoglobin 25.8 pg (28.0-33.3); Mean Corpuscular Volume 87.4 fL (83.0-100.0); Mean Platelet Volume 11.4 fL (9.4-12.4); Monocytes # 0.4 K/mcL (0.0-1.3); Monocytes % 2.7 %; Neutrophils # 12.7 K/mcL (1.6-8.9); Platelet Count 297 K/mcL (140-400); Red Blood Count 4.14 M/mcL (3.82-4.97); Red Cell Distribution Width 17.6 % (11.5-14.5); Segmented Neutrophils % 92.8 %
[2017-11-11 10:27] LABS: Potassium 4.3 mEq/L (3.5-5.1)
--- NOTE | 2017-11-11 11:10 | Internal Med Progress Note ---
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 Pt was placed on BiPAP initially and her O2 sats improved now. She denied any CP. She still has cough with greenish expectoration. Pt stated she never got better since she left the hospital on 10/29/17. Her CXR showed new infiltrate on RLL Interval changes: Desaturation to mid 80s overnight Starting to cough up thick brown sputum Assessment and Plan (1) HCAP (healthcare-associated pneumonia) CXR showed RML and RLL infiltrates RML seems to be new compare to old one V/Q scan low prob for PE Since pt is allergic to multiple abx will place her on Vanco, Aztreonam and Doxy Sputum cx, Strep PNA, Legionella and Resp viral panel (-) Blood cx pending Add muccinex Supplemental O2 requirement 4L (at BL) (2) Acute and chronic respiratory failure with hypoxia V/Q scan low probability for PE Cont OFE Duoneb + BiPAP Use BiPAP continuously for next 24hrs (3) Acute exacerbation of chronic obstructive airways disease on High dose IV steroids Duoneb + O2 (4) Paroxysmal a-fib Rate controlled on Metoprolol and Amiodarone Not on Anticoagulation due to previous GIB (6) History of GIB: Not on A/c for A-Fib (7) CHF: Lasix started 40 mg IVP BID - Constitutional Vitals: Temp Pulse Resp BP Pulse Ox 97.6 F 54 20 152/48 96 11/11/17 07:42 11/11/17 07:42 11/11/17 07:42 11/11/17 07:42 11/11/17 07:42 General appearance: Present: cooperative, mild distress, A&O X 3, answers questions appropriately - Head Head exam: Present: atraumatic, normocephalic - Eye Eye exam: Present: PERRL, conjuntiva pink, sclera anicteric Pupils: Present: PERRL - Neck Neck exam general surgery: Present: supple, trachea midline. Absent: lymphadenopathy - Respiratory Respiratory exam: Present: rales, wheezes. Absent: accessory muscle use, CTAB, rhonchi - Cardiovascular Cardiovascular exam: Present: bradycardia, irregular rhythm, +S1, +S2. Absent: diastolic murmur, gallop, RRR, rubs, systolic murmur - GI/Abdominal GI/Abdominal exam: Present: normal bowel sounds, soft, no peritoneal signs. Absent: distended, tenderness - Extremities Exam Extremities exam: Present: warm, radial pulses palpable and symmetrical. Absent : calf tenderness, cyanotic, pedal edema - Neurological Exam Neurological exam: Present: CN II-XII intact, oriented X3, no focal deficits. Absent: pronater drift, facial droop, speech deficit - Psychiatric Psychiatric exam: Present: normal affect, normal mood - Skin Skin exam: Present: dry, intact Internal Medicine: Result - Labs CBC & Chem 7: 11/11/17 07:11 11/11/17 09:21 Labs: Short CBC 11/11/17 Range/Units 07:11 WBC 13.7 H D (4.3-11.1) K/mcL Hgb 10.7 L (11.5-15.4) g/dL Hct 36.2 (35.3-44.9) % Plt Count 297 (140-400) K/mcL Neutrophils # 12.7 H (1.6-8.9) K/mcL BMP 11/11/17 09:21 Sodium 134 L Potassium 4.3 Chloride 98 Carbon Dioxide 26 BUN 55 H Creatinine 1.42 H Glucose 116 H Calcium 9.0 - ABG Interpretation ABG results: ABG ABG pH 7.34 pH Units (7.32-7.45) 11/10/17 08:03 ABG pCO2 53 mmHg (35-45) H 11/10/17 08:03 ABG pO2 87 mmHg (85-104) D 11/10/17 08:03 ABG O2 Saturation 96 % (95-98) 11/10/17 08:03 PT/INR, D-dimer PT 13.9 Seconds (9.4-12.1) H 11/09/17 09:13 Consult Discharge Plan - Plan Referrals: Mary Stanford MD [Partnered Physician] - 11/29/17 11:15 am Betty Cordova MD [Partnered Physician] - 11/29/17 9:00 am Lang Jarvis DO [Primary Care Provider] - 11/18/17 11:30 am
[2017-11-11] MEDS: Vitamin B Complex/Vit C/Vit E 1 EACH TABLET PO SCH (17:03)
[2017-11-11] MEDS: Melatonin 3 MG TABLET PO SCH (22:00)
[2017-11-12] MEDS: Ipratropium/Albuterol Neb 3 ML IH SCH ×6 (04:12→23:49)
[2017-11-12] MEDS: *HR* Enoxaparin 40 MG/0.4 ML SYRINGE SQ SCH (05:05)
[2017-11-12] MEDS: MethylPREDNISolone 40 MG/ML VIAL IVP SCH ×3 (05:05→16:29)
[2017-11-12] MEDS: Doxycycline 100 MG in 0.9 % Sodium Chloride Mini Bag 100 ML IVPB SCH ×2 (05:27→16:29)
[2017-11-12] MEDS: Budesonide/Formoterol 160/4.5 MDI IH SCH ×2 (07:56→20:18)
[2017-11-12] MEDS: Furosemide 40 MG/4 ML VIAL IVP SCH ×2 (08:51→16:29)
[2017-11-12] MEDS: Pregabalin 75 MG CAPSULE PO SCH ×2 (08:51→21:28)
[2017-11-12] MEDS: Metoprolol XL (24 HR) Succ 50 MG TAB.ER.24H PO SCH (08:51)
[2017-11-12] MEDS: Patient Taking Own Medication 1 EACH SQ SCH (08:52)
[2017-11-12] MEDS: *HR* Amiodarone 200 MG TABLET PO SCH (08:52)
[2017-11-12] MEDS: Aspirin Enteric Coated 81 MG Tablet PO SCH (08:52)
[2017-11-12] MEDS: FLUoxetine 20 MG CAPSULE PO SCH (08:52)
[2017-11-12] MEDS: (Febuxostat [Uloric] 80 MG) PO SCH (08:52)
[2017-11-12] MEDS: amLODIPine 5 MG TABLET PO SCH (08:52)
[2017-11-12] MEDS: Cholecalciferol (D-3) 1,000 UNIT TABLET PO SCH (08:52)
[2017-11-12] MEDS: MICONAZOLE NITRATE APPL TP SCH (08:52)
--- NOTE | 2017-11-12 15:50 | Internal Med Progress Note ---
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 Pt was placed on BiPAP initially and her O2 sats improved now. She denied any CP. She still has cough with greenish expectoration. Pt stated she never got better since she left the hospital on 10/29/17. Her CXR showed new infiltrate on RLL Interval changes: Desaturation to mid 80s overnight Starting to cough up thick brown sputum Assessment and Plan (1) HCAP (healthcare-associated pneumonia) CXR showed RML and RLL infiltrates RML seems to be new compare to old one V/Q scan low prob for PE Since pt is allergic to multiple abx will place her on Vanco, Aztreonam and Doxy (day 3) Sputum cx, Strep PNA, Legionella and Resp viral panel (-) Blood cx NTD Muccinex added and now coughing up thick sputum Supplemental O2 requirement 4L (at BL) (2) Acute and chronic respiratory failure with hypoxia V/Q scan low probability for PE Cont Duoneb + Singulair +steroids BiPAP (3) Acute exacerbation of chronic obstructive airways disease High dose IV steroids Begin to deescalate steroids tomorrow Duoneb + Singulair (4) Paroxysmal a-fib Rate controlled on Metoprolol and Amiodarone Not on Anticoagulation due to previous GIB (6) History of GIB: Not on A/c for A-Fib (7) CHF: Lasix started 40 mg IVP BID - Constitutional Vitals: Temp Pulse Resp BP Pulse Ox 97.4 F L 57 18 148/58 95 11/12/17 07:00 11/12/17 07:00 11/12/17 11:24 11/12/17 07:00 11/12/17 11:24 General appearance: Present: cooperative, mild distress, A&O X 3, answers questions appropriately - Head Head exam: Present: atraumatic, normocephalic - Eye Eye exam: Present: PERRL, conjuntiva pink, sclera anicteric Pupils: Present: PERRL - Neck Neck exam general surgery: Present: supple, trachea midline. Absent: lymphadenopathy - Respiratory Respiratory exam: Present: CTAB. Absent: accessory muscle use, rales, rhonchi, wheezes - Cardiovascular Cardiovascular exam: Present: RRR, +S1, +S2. Absent: diastolic murmur, gallop, rubs, systolic murmur - GI/Abdominal GI/Abdominal exam: Present: normal bowel sounds, soft, no peritoneal signs. Absent: distended, tenderness - Extremities Exam Extremities exam: Present: warm, radial pulses palpable and symmetrical. Absent : calf tenderness, cyanotic, pedal edema - Neurological Exam Neurological exam: Present: CN II-XII intact, oriented X3, no focal deficits. Absent: pronater drift, facial droop, speech deficit - Psychiatric Psychiatric exam: Present: normal affect, normal mood - Skin Skin exam: Present: dry, intact Internal Medicine: Result - Labs CBC & Chem 7: 11/11/17 07:11 11/11/17 09:21 - ABG Interpretation ABG results: ABG ABG pH 7.34 pH Units (7.32-7.45) 11/10/17 08:03 ABG pCO2 53 mmHg (35-45) H 11/10/17 08:03 ABG pO2 87 mmHg (85-104) D 11/10/17 08:03 ABG O2 Saturation 96 % (95-98) 11/10/17 08:03 PT/INR, D-dimer PT 13.9 Seconds (9.4-12.1) H 11/09/17 09:13 Consult Discharge Plan - Plan Referrals: Mary Stanford MD [Partnered Physician] - 11/29/17 11:15 am Betty Cordova MD [Partnered Physician] - 11/29/17 9:00 am Lang Jarvis DO [Primary Care Provider] - 11/18/17 11:30 am
[2017-11-12] MEDS: Vitamin B Complex/Vit C/Vit E 1 EACH TABLET PO SCH (16:29)
[2017-11-12] MEDS: Melatonin 3 MG TABLET PO SCH (21:28)
[2017-11-13] MEDS: MethylPREDNISolone 40 MG/ML VIAL IVP SCH ×5 (00:04→23:57)
[2017-11-13] MEDS: Ipratropium/Albuterol Neb 3 ML IH SCH ×5 (04:36→21:36)
[2017-11-13] MEDS: *HR* Enoxaparin 40 MG/0.4 ML SYRINGE SQ SCH (05:36)
[2017-11-13] MEDS: Doxycycline 100 MG in 0.9 % Sodium Chloride Mini Bag 100 ML IVPB SCH ×2 (05:36→17:44)
[2017-11-13] MEDS: Budesonide/Formoterol 160/4.5 MDI IH SCH ×2 (08:03→21:36)
[2017-11-13 08:54] LABS: Basophils % 0.1 %; Eosinophils % 0.1 %; Hematocrit 38.4 % (35.3-44.9); Hemoglobin 11.7 g/dL (11.5-15.4); Immature Granulocytes % 1.1 % (0-4); Lymphocytes # 0.4 K/mcL (0.6-4.6); Lymphocytes % 2.9 %; Mean Corpuscular HGB Conc 30.5 g/dL (31.6-35.5); Mean Corpuscular Hemoglobin 26.4 pg (28.0-33.3); Mean Corpuscular Volume 86.5 fL (83.0-100.0); Mean Platelet Volume 11.4 fL (9.4-12.4); Monocytes # 0.6 K/mcL (0.0-1.3); Monocytes % 4.3 %; Neutrophils # 12.9 K/mcL (1.6-8.9); Nucleated Red Blood Cells 0.3 /100 WBC (0); Platelet Count 263 K/mcL (140-400); Red Blood Count 4.44 M/mcL (3.82-4.97); Segmented Neutrophils % 91.5 %
[2017-11-13 09:15] LABS: Calcium 9.2 mg/dL (8.6-10.3); Potassium 5.1 mEq/L (3.5-5.1)
[2017-11-13] MEDS: amLODIPine 5 MG TABLET PO SCH (09:47)
[2017-11-13] MEDS: FLUoxetine 20 MG CAPSULE PO SCH (09:47)
[2017-11-13] MEDS: Pregabalin 75 MG CAPSULE PO SCH ×2 (09:47→21:42)
[2017-11-13] MEDS: Furosemide 40 MG/4 ML VIAL IVP SCH ×2 (09:47→17:45)
[2017-11-13] MEDS: Aspirin Enteric Coated 81 MG Tablet PO SCH (09:47)
[2017-11-13] MEDS: Cholecalciferol (D-3) 1,000 UNIT TABLET PO SCH (09:47)
[2017-11-13] MEDS: Metoprolol XL (24 HR) Succ 50 MG TAB.ER.24H PO SCH (09:47)
[2017-11-13] MEDS: *HR* Amiodarone 200 MG TABLET PO SCH (09:48)
[2017-11-13] MEDS: (Febuxostat [Uloric] 80 MG) PO SCH (09:49)
[2017-11-13] MEDS: MICONAZOLE NITRATE APPL TP SCH (09:49)
[2017-11-13] MEDS: Patient Taking Own Medication 1 EACH SQ SCH (10:30)
--- NOTE | 2017-11-13 12:29 | Internal Med Progress Note ---
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 Pt was placed on BiPAP initially and her O2 sats improved now. She denied any CP. She still has cough with greenish expectoration. Pt stated she never got better since she left the hospital on 10/29/17. Her CXR showed new infiltrate on RLL Interval changes: 11/12/2017: Desaturation to mid 80s overnight Starting to cough up thick brown sputum 11/13/2017: Pt O2 off face while sleeping and SpO2 84%. (94% when NC in nose) Bad cough kept her up all night Assessment and Plan (1) HCAP (healthcare-associated pneumonia) CXR showed RML and RLL infiltrates RML seems to be new compare to old one V/Q scan low prob for PE Since pt is allergic to multiple abx will place her on Vanco, Aztreonam and Doxy (day 4) Sputum cx, Strep PNA, Legionella and Resp viral panel (-) Blood cx NTD Muccinex added and now coughing up thick sputum Supplemental O2 requirement 4L (at BL) Added Tessalon (2) Acute and chronic respiratory failure with hypoxia V/Q scan low probability for PE Cont Duoneb + Singulair +steroids BiPAP (3) Acute exacerbation of chronic obstructive airways disease High dose IV steroids Begin to deescalate steroids tomorrow Duoneb + Singulair Add spiriva (4) Paroxysmal a-fib Rate controlled on Metoprolol and Amiodarone Not on Anticoagulation due to previous GIB (6) History of GIB: Not on A/c for A-Fib (7) CHF: Lasix started 40 mg IVP BID - Constitutional Vitals: Temp Pulse Resp BP Pulse Ox 97.5 F L 47 16 168/68 95 11/13/17 11:50 11/13/17 11:50 11/13/17 11:50 11/13/17 11:50 11/13/17 11:50 General appearance: Present: cooperative, mild distress, A&O X 3, morbidly obese , answers questions appropriately - Head Head exam: Present: atraumatic, normocephalic - Eye Eye exam: Present: PERRL, conjuntiva pink, sclera anicteric Pupils: Present: PERRL - Neck Neck exam general surgery: Present: supple, trachea midline. Absent: lymphadenopathy - Respiratory Respiratory exam: Present: wheezes. Absent: accessory muscle use, rales, rhonchi Additional comments: Her lungs sound very tight with end expiratory wheezing - Cardiovascular Cardiovascular exam: Present: RRR, +S1, +S2. Absent: diastolic murmur, gallop, rubs, systolic murmur - GI/Abdominal GI/Abdominal exam: Present: normal bowel sounds, soft, no peritoneal signs. Absent: distended, tenderness - Extremities Exam Extremities exam: Present: warm, radial pulses palpable and symmetrical. Absent : calf tenderness, cyanotic, pedal edema - Neurological Exam Neurological exam: Present: CN II-XII intact, oriented X3, no focal deficits. Absent: pronater drift, facial droop, speech deficit - Skin Skin exam: Present: dry, intact Internal Medicine: Result - Labs CBC & Chem 7: 11/13/17 08:40 11/13/17 08:40 Labs: Short CBC 11/13/17 Range/Units 08:40 WBC 14.1 H (4.3-11.1) K/mcL Hgb 11.7 (11.5-15.4) g/dL Hct 38.4 (35.3-44.9) % Plt Count 263 (140-400) K/mcL Neutrophils # 12.9 H (1.6-8.9) K/mcL BMP 11/13/17 08:40 Sodium 139 Potassium 5.1 Chloride 105 Carbon Dioxide 27 BUN 58 H Creatinine 1.32 H Glucose 57 L Calcium 9.2 - ABG Interpretation ABG results: ABG ABG pH 7.34 pH Units (7.32-7.45) 11/10/17 08:03 ABG pCO2 53 mmHg (35-45) H 11/10/17 08:03 ABG pO2 87 mmHg (85-104) D 11/10/17 08:03 ABG O2 Saturation 96 % (95-98) 11/10/17 08:03 PT/INR, D-dimer PT 13.9 Seconds (9.4-12.1) H 11/09/17 09:13 Consult Discharge Plan - Plan Referrals: Mary Stanford MD [Partnered Physician] - 11/29/17 11:15 am Betty Cordova MD [Partnered Physician] - 11/29/17 9:00 am Lang Jarvis DO [Primary Care Provider] - 11/18/17 11:30 am
[2017-11-13] MEDS: Vitamin B Complex/Vit C/Vit E 1 EACH TABLET PO SCH (17:45)
[2017-11-13] MEDS: Melatonin 3 MG TABLET PO SCH (21:42)
[2017-11-14] MEDS: Ipratropium/Albuterol Neb 3 ML IH SCH ×6 (00:06→20:21)
[2017-11-14] MEDS: Doxycycline 100 MG in 0.9 % Sodium Chloride Mini Bag 100 ML IVPB SCH ×2 (05:42→18:04)
[2017-11-14] MEDS: *HR* Enoxaparin 40 MG/0.4 ML SYRINGE SQ SCH (05:42)
[2017-11-14] MEDS: MethylPREDNISolone 40 MG/ML VIAL IVP SCH ×3 (05:42→18:04)
[2017-11-14] MEDS: Budesonide/Formoterol 160/4.5 MDI IH SCH ×2 (08:31→20:21)
[2017-11-14 09:08] LABS: Calcium 9.2 mg/dL (8.6-10.3); Potassium 4.5 mEq/L (3.5-5.1)
[2017-11-14 09:09] LABS: Hematocrit 38.6 % (35.3-44.9); Hemoglobin 11.3 g/dL (11.5-15.4); Immature Granulocytes % 1.1 % (0-4); Lymphocytes # 0.3 K/mcL (0.6-4.6); Lymphocytes % 3.4 %; Mean Corpuscular HGB Conc 29.3 g/dL (31.6-35.5); Mean Corpuscular Hemoglobin 25.8 pg (28.0-33.3); Mean Corpuscular Volume 88.1 fL (83.0-100.0); Mean Platelet Volume 11.4 fL (9.4-12.4); Monocytes # 0.3 K/mcL (0.0-1.3); Monocytes % 3.3 %; Neutrophils # 8.3 K/mcL (1.6-8.9); Platelet Count 231 K/mcL (140-400); Red Blood Count 4.38 M/mcL (3.82-4.97); Segmented Neutrophils % 92.2 %
[2017-11-14] MEDS: Cholecalciferol (D-3) 1,000 UNIT TABLET PO SCH (09:56)
[2017-11-14] MEDS: FLUoxetine 20 MG CAPSULE PO SCH (09:56)
[2017-11-14] MEDS: Aspirin Enteric Coated 81 MG Tablet PO SCH (09:56)
[2017-11-14] MEDS: amLODIPine 5 MG TABLET PO SCH (09:57)
[2017-11-14] MEDS: Furosemide 40 MG/4 ML VIAL IVP SCH ×2 (09:57→18:04)
[2017-11-14] MEDS: Metoprolol XL (24 HR) Succ 50 MG TAB.ER.24H PO SCH (09:57)
[2017-11-14] MEDS: *HR* Amiodarone 200 MG TABLET PO SCH (09:57)
[2017-11-14] MEDS: Pregabalin 75 MG CAPSULE PO SCH ×2 (09:57→20:31)
[2017-11-14] MEDS: MICONAZOLE NITRATE APPL TP SCH ×2 (09:58→18:04)
[2017-11-14] MEDS: (Febuxostat [Uloric] 80 MG) PO SCH (09:58)
[2017-11-14] MEDS: Patient Taking Own Medication 1 EACH SQ SCH (10:36)
--- NOTE | 2017-11-14 16:03 | Internal Med Progress Note ---
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 Pt was placed on BiPAP initially and her O2 sats improved now. She denied any CP. She still has cough with greenish expectoration. Pt stated she never got better since she left the hospital on 10/29/17. Her CXR showed new infiltrate on RLL Interval changes: 11/12/2017: Desaturation to mid 80s overnight Starting to cough up thick brown sputum 11/13/2017: Pt O2 off face while sleeping and SpO2 84%. (94% when NC in nose) Bad cough kept her up all night Assessment and Plan (1) Acute exacerbation of chronic obstructive airways disease XR showed possible RML and RLL infiltrates V/Q scan low prob for PE Since pt is allergic to multiple abx so she was empirically started on Vanco, Aztreonam and Doxy Sputum cx, Strep PNA, Legionella and Resp viral panel (-) Blood cx NTD Antibiotics deescalated as CPOD exacerbation more likely explanation for acute sob. Continue Duoneb + Singulair +Spiriva Clinically improved and back to baseline supplemental O2 requirement 4L No fever and nl WBC Muccinex and Tessalon added Continue to deescalate steroids tomorrow (SoluMedrol ---> Prednisone) (2) Acute and chronic respiratory failure with hypoxia Multifactorial; Severe O2-dependent COPD and Bruna. HF worsened by A-Fib. Improved with aggressive treatment of her COPD and HF Pneumonia not likely and antibiotics deescalated (3) Diastolic Heart failure: Continue Lasix Neg fluid balance (4) Paroxysmal a-fib Rate controlled on Metoprolol and Amiodarone Not on Anticoagulation due to previous GIB (5) History of GIB: Not on A/c for A-Fib - Constitutional Vitals: Temp Pulse Resp BP Pulse Ox 97.3 F L 49 16 172/66 97 11/14/17 11:33 11/14/17 11:33 11/14/17 11:51 11/14/17 11:33 11/14/17 11:51 General appearance: Present: cooperative, A&O X 3, morbidly obese, no acute distress, answers questions appropriately - Head Head exam: Present: atraumatic, normocephalic - Eye Eye exam: Present: PERRL, conjuntiva pink, sclera anicteric Pupils: Present: PERRL - Neck Neck exam general surgery: Present: supple, trachea midline. Absent: lymphadenopathy - Respiratory Respiratory exam: Present: CTAB. Absent: accessory muscle use, rales, rhonchi, wheezes - Cardiovascular Cardiovascular exam: Present: RRR, +S1, +S2. Absent: diastolic murmur, gallop, rubs, systolic murmur - GI/Abdominal GI/Abdominal exam: Present: normal bowel sounds, soft, no peritoneal signs. Absent: distended, tenderness - Extremities Exam Extremities exam: Present: warm, radial pulses palpable and symmetrical. Absent : calf tenderness, cyanotic, pedal edema - Neurological Exam Neurological exam: Present: CN II-XII intact, oriented X3, no focal deficits. Absent: pronater drift, facial droop, speech deficit - Skin Skin exam: Present: dry, intact Internal Medicine: Result - Labs CBC & Chem 7: 11/14/17 07:58 11/14/17 07:58 Labs: Short CBC 11/14/17 Range/Units 07:58 WBC 9.0 (4.3-11.1) K/mcL Hgb 11.3 L (11.5-15.4) g/dL Hct 38.6 (35.3-44.9) % Plt Count 231 (140-400) K/mcL Neutrophils # 8.3 (1.6-8.9) K/mcL BMP 11/14/17 07:58 Sodium 139 Potassium 4.5 Chloride 104 Carbon Dioxide 29 BUN 62 H Creatinine 1.47 H Glucose 114 H Calcium 9.2 - ABG Interpretation ABG results: ABG ABG pH 7.34 pH Units (7.32-7.45) 11/10/17 08:03 ABG pCO2 53 mmHg (35-45) H 11/10/17 08:03 ABG pO2 87 mmHg (85-104) D 11/10/17 08:03 ABG O2 Saturation 96 % (95-98) 11/10/17 08:03 PT/INR, D-dimer PT 13.9 Seconds (9.4-12.1) H 11/09/17 09:13 Consult Discharge Plan - Plan Referrals: Mary Stanford MD [Partnered Physician] - 11/29/17 11:15 am Betty Cordova MD [Partnered Physician] - 11/29/17 9:00 am Lang Jarvis DO [Primary Care Provider] - 11/18/17 11:30 am
[2017-11-14] MEDS: Vitamin B Complex/Vit C/Vit E 1 EACH TABLET PO SCH (18:04)
[2017-11-14] MEDS: Melatonin 3 MG TABLET PO SCH (20:30)
[2017-11-14] MEDS: Acetaminophen 325 MG TABLET PO PRN (20:33)
[2017-11-15] MEDS: Ipratropium/Albuterol Neb 3 ML IH SCH ×7 (00:02→23:25)
[2017-11-15] MEDS: MethylPREDNISolone 40 MG/ML VIAL IVP SCH ×3 (04:12→12:09)
[2017-11-15] MEDS: Doxycycline 100 MG in 0.9 % Sodium Chloride Mini Bag 100 ML IVPB SCH (05:29)
[2017-11-15] MEDS: *HR* Enoxaparin 40 MG/0.4 ML SYRINGE SQ SCH (05:30)
[2017-11-15 06:49] LABS: Hematocrit 35.1 % (35.3-44.9); Hemoglobin 10.6 g/dL (11.5-15.4); Immature Granulocytes % 0.7 % (0-4); Lymphocytes # 0.3 K/mcL (0.6-4.6); Lymphocytes % 2.7 %; Mean Corpuscular HGB Conc 30.2 g/dL (31.6-35.5); Mean Corpuscular Hemoglobin 26.4 pg (28.0-33.3); Mean Corpuscular Volume 87.3 fL (83.0-100.0); Mean Platelet Volume 11.2 fL (9.4-12.4); Monocytes # 0.5 K/mcL (0.0-1.3); Monocytes % 4.9 %; Neutrophils # 9.3 K/mcL (1.6-8.9); Platelet Count 214 K/mcL (140-400); Red Blood Count 4.02 M/mcL (3.82-4.97); Red Cell Distribution Width 18.1 % (11.5-14.5); Segmented Neutrophils % 91.7 %
[2017-11-15 07:15] LABS: Albumin 3.3 g/dL (3.5-5.7); Albumin/Globulin Ratio 1.2 (1.1-2.2); Bilirubin,Total 0.6 mg/dL (0.3-1.0); Calcium 9.1 mg/dL (8.6-10.3); Globulin 2.8 g/dL (2.4-3.5); Potassium 4.4 mEq/L (3.5-5.1); Total Protein 6.1 g/dL (6.4-8.9)
[2017-11-15] MEDS: Budesonide/Formoterol 160/4.5 MDI IH SCH ×2 (07:54→21:01)
[2017-11-15] MEDS: Aspirin Enteric Coated 81 MG Tablet PO SCH (08:52)
[2017-11-15] MEDS: amLODIPine 5 MG TABLET PO SCH (08:52)
[2017-11-15] MEDS: Cholecalciferol (D-3) 1,000 UNIT TABLET PO SCH (08:52)
[2017-11-15] MEDS: FLUoxetine 20 MG CAPSULE PO SCH (08:52)
[2017-11-15] MEDS: Metoprolol XL (24 HR) Succ 50 MG TAB.ER.24H PO SCH (08:52)
[2017-11-15] MEDS: Furosemide 40 MG/4 ML VIAL IVP SCH ×2 (08:52→17:50)
[2017-11-15] MEDS: *HR* Amiodarone 200 MG TABLET PO SCH (08:52)
[2017-11-15] MEDS: Acetaminophen 325 MG TABLET PO PRN ×2 (08:53→20:43)
[2017-11-15] MEDS: (Febuxostat [Uloric] 80 MG) PO SCH (08:57)
[2017-11-15] MEDS: MICONAZOLE NITRATE APPL TP SCH (08:57)
[2017-11-15] MEDS: Pregabalin 75 MG CAPSULE PO SCH ×2 (08:57→20:44)
[2017-11-15] MEDS: Patient Taking Own Medication 1 EACH SQ SCH (12:09)
--- NOTE | 2017-11-15 13:59 | Internal Med Progress Note ---
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 Pt was placed on BiPAP initially and her O2 sats improved now. She denied any CP. She still has cough with greenish expectoration. Pt stated she never got better since she left the hospital on 10/29/17. Her CXR showed new infiltrate on RLL Interval changes: 11/12/2017: Desaturation to mid 80s overnight Starting to cough up thick brown sputum 11/13/2017: Pt O2 off face while sleeping and SpO2 84%. (94% when NC in nose) Bad cough kept her up all night 11/14/2017: Breathing better Productive cough resolving 11/15/2017: breathing better at rest Still having dyspea with even minimal exertion Negative fluid balance Assessment and Plan (1) Acute exacerbation of chronic obstructive airways disease XR showed possible RML and RLL infiltrates V/Q scan low prob for PE Since pt is allergic to multiple abx so she was empirically started on Vanco, Aztreonam and Doxy Sputum cx, Strep PNA, Legionella and Resp viral panel (-) Blood cx NTD Antibiotics deescalated as CPOD exacerbation more likely explanation for acute sob. Continue Duoneb + Singulair +Spiriva Clinically improved and back to baseline supplemental O2 requirement 4L No fever and nl WBC Muccinex and Tessalon added Continue to deescalate steroids tomorrow (SoluMedrol ---> Prednisone) (2) Acute and chronic respiratory failure with hypoxia Multifactorial; Severe O2-dependent COPD and Bruna. HF worsened by A-Fib. Improved with aggressive treatment of her COPD and HF Pneumonia not likely and antibiotics deescalated (3) Diastolic Heart failure: Continue Lasix Neg fluid balance (4) Paroxysmal a-fib Rate controlled on Metoprolol and Amiodarone Not on Anticoagulation due to previous GIB (5) History of GIB: Not on A/c for A-Fib - Constitutional Vitals: Temp Pulse Resp BP Pulse Ox 97.4 F L 52 16 179/62 96 11/15/17 12:18 11/15/17 12:18 11/15/17 12:18 11/15/17 12:18 11/15/17 12:18 General appearance: Present: cooperative, A&O X 3, morbidly obese, no acute distress, answers questions appropriately - Head Head exam: Present: atraumatic, normocephalic - Eye Eye exam: Present: PERRL, conjuntiva pink, sclera anicteric Pupils: Present: PERRL - Neck Neck exam general surgery: Present: supple, trachea midline. Absent: lymphadenopathy - Respiratory Respiratory exam: Present: CTAB. Absent: accessory muscle use, rales, rhonchi, wheezes - Cardiovascular Cardiovascular exam: Present: RRR, +S1, +S2. Absent: diastolic murmur, gallop, rubs, systolic murmur - GI/Abdominal GI/Abdominal exam: Present: normal bowel sounds, soft, no peritoneal signs. Absent: distended, tenderness - Extremities Exam Extremities exam: Present: warm. Absent: calf tenderness, cyanotic, pedal edema - Neurological Exam Neurological exam: Present: CN II-XII intact, oriented X3, no focal deficits. Absent: pronater drift, facial droop, speech deficit - Skin Skin exam: Present: dry, intact Internal Medicine: Result - Labs CBC & Chem 7: 11/15/17 06:20 11/15/17 06:20 Labs: Short CBC 11/15/17 Range/Units 06:20 WBC 10.1 (4.3-11.1) K/mcL Hgb 10.6 L (11.5-15.4) g/dL Hct 35.1 L (35.3-44.9) % Plt Count 214 (140-400) K/mcL Neutrophils # 9.3 H (1.6-8.9) K/mcL BMP 11/15/17 06:20 Sodium 142 Potassium 4.4 Chloride 105 Carbon Dioxide 28 BUN 68 H Creatinine 1.28 H Glucose 50 L Calcium 9.1 Liver Function 11/15/17 Range/Units 06:20 Total Bilirubin 0.6 (0.3-1.0) mg/dL AST 86 H (13-39) Units/L ALT 72 H (7-52) Units/L Alkaline Phosphatase 110 H (34-104) Units/L Albumin 3.3 L (3.5-5.7) g/dL - ABG Interpretation ABG results: ABG ABG pH 7.34 pH Units (7.32-7.45) 11/10/17 08:03 ABG pCO2 53 mmHg (35-45) H 11/10/17 08:03 ABG pO2 87 mmHg (85-104) D 11/10/17 08:03 ABG O2 Saturation 96 % (95-98) 11/10/17 08:03 PT/INR, D-dimer PT 13.9 Seconds (9.4-12.1) H 11/09/17 09:13 Consult Discharge Plan - Plan Referrals: Mary Stanford MD [Partnered Physician] - 11/29/17 11:15 am Betty Cordova MD [Partnered Physician] - 11/29/17 9:00 am Lang Jarvis DO [Primary Care Provider] - 11/18/17 11:30 am
[2017-11-15] MEDS: Vitamin B Complex/Vit C/Vit E 1 EACH TABLET PO SCH (17:49)
[2017-11-15] MEDS: predniSONE 20 MG TABLET PO SCH (17:50)
[2017-11-15] MEDS: Doxycycline 100 MG CAPSULE PO SCH (20:44)
[2017-11-15] MEDS: Melatonin 3 MG TABLET PO SCH (20:44)
[2017-11-16] MEDS: Ipratropium/Albuterol Neb 3 ML IH SCH ×6 (03:56→23:16)
[2017-11-16] MEDS: *HR* Enoxaparin 40 MG/0.4 ML SYRINGE SQ SCH (05:42)
[2017-11-16 06:10] LABS: Basophils % 0.1 %; Hematocrit 37.6 % (35.3-44.9); Hemoglobin 11.1 g/dL (11.5-15.4); Immature Granulocytes % 0.5 % (0-4); Lymphocytes # 0.4 K/mcL (0.6-4.6); Lymphocytes % 3.9 %; Mean Corpuscular HGB Conc 29.5 g/dL (31.6-35.5); Mean Corpuscular Hemoglobin 26.3 pg (28.0-33.3); Mean Corpuscular Volume 89.1 fL (83.0-100.0); Mean Platelet Volume 11.4 fL (9.4-12.4); Monocytes # 0.6 K/mcL (0.0-1.3); Monocytes % 6.7 %; Neutrophils # 8.5 K/mcL (1.6-8.9); Platelet Count 204 K/mcL (140-400); Red Blood Count 4.22 M/mcL (3.82-4.97); Red Cell Distribution Width 18.4 % (11.5-14.5); Segmented Neutrophils % 88.8 %
[2017-11-16] MEDS: Budesonide/Formoterol 160/4.5 MDI IH SCH ×2 (07:48→19:44)
[2017-11-16] MEDS: Doxycycline 100 MG CAPSULE PO SCH ×2 (09:05→23:06)
[2017-11-16] MEDS: FLUoxetine 20 MG CAPSULE PO SCH (09:05)
[2017-11-16] MEDS: predniSONE 20 MG TABLET PO SCH ×2 (09:05→17:34)
[2017-11-16] MEDS: Cholecalciferol (D-3) 1,000 UNIT TABLET PO SCH (09:06)
[2017-11-16] MEDS: Metoprolol XL (24 HR) Succ 50 MG TAB.ER.24H PO SCH (09:06)
[2017-11-16] MEDS: Pregabalin 75 MG CAPSULE PO SCH ×2 (09:06→23:06)
[2017-11-16] MEDS: amLODIPine 5 MG TABLET PO SCH (09:07)
[2017-11-16] MEDS: Acetaminophen 325 MG TABLET PO PRN ×3 (09:07→23:06)
[2017-11-16] MEDS: *HR* Amiodarone 200 MG TABLET PO SCH (09:07)
[2017-11-16] MEDS: Aspirin Enteric Coated 81 MG Tablet PO SCH (09:07)
[2017-11-16] MEDS: Furosemide 40 MG/4 ML VIAL IVP SCH ×2 (09:07→17:34)
[2017-11-16] MEDS: (Febuxostat [Uloric] 80 MG) PO SCH (09:08)
[2017-11-16] MEDS: MICONAZOLE NITRATE APPL TP SCH (09:08)
[2017-11-16] MEDS ORDERED: cloNIDine HCl 0.1 MG TABLET PO ONE (11:56)
[2017-11-16] MEDS: Patient Taking Own Medication 1 EACH SQ SCH (12:16)
[2017-11-16 12:25] LABS: Calcium 9.4 mg/dL (8.6-10.3); Potassium 4.3 mEq/L (3.5-5.1)
[2017-11-16] MEDS: Vitamin B Complex/Vit C/Vit E 1 EACH TABLET PO SCH (17:34)
[2017-11-16] MEDS ORDERED: *HR* Metoprolol 5 MG/5 ML VIAL IVP STA (22:15)
--- NOTE | 2017-11-16 22:25 | Internal Med Progress Note ---
Date of Encounter: 11/16/17 Time of Encounter: 22:23 - Assessment and plan (1) Acute and chronic respiratory failure with hypoxia Current Visit: Yes Status: Chronic Assessment and plan: Acute exacerbation improved with aggressive treatment of COPD and CHF. Pneumonia ruled out and antibiotics discontinued. Continue supplemental O2 and wean by RT to home 3L NC. Will ambulate today and monitor for desaturation. Plan for discharge home tomorrow with O2 wean and improved BP as per below. (2) Acute exacerbation of chronic obstructive airways disease Current Visit: Yes Status: Acute Assessment and plan: Improving. Continue duonebs, singulair, and spiriva. Continue supplemental O2 wean to home 3L NC per RT. Continue mucinex and tessalon perles. Now on prednisone; plan to discharge home tomorrow if weaned to home O2 with home prednisone taper. Antibiotics discontinued as pneumonia not likely. (3) Diastolic dysfunction with chronic heart failure Current Visit: Yes Status: Chronic Assessment and plan: Continue lasix IV; plan to discharge home with home PO lasix tomorrow. (4) Paroxysmal a-fib Current Visit: Yes Status: Chronic Assessment and plan: Rate-controlled on amiodarone and metoprolol. No anticoagulation due to history of GI bleed. (5) History of lower GI bleeding Current Visit: Yes Status: Chronic Assessment and plan: Not on anticoagulation for Afib due to this. - Time Spent With Patient less than 15 minutes - Subjective Interval history: Patient had no acute events overnight. Nursing staff states that patient BP has been running up to systolic 170-180s. She is allergic to many BP medications. She denies chest pain or SOB at this time. She denies fever or chills. She wants to go home tomorrow. She has no new complaints. - Constitutional Vitals: Temp Pulse Resp BP Pulse Ox 98.6 F 56 16 193/67 98 11/16/17 20:38 11/16/17 20:38 11/16/17 20:38 11/16/17 20:38 11/16/17 20:38 General appearance: Present: cooperative, A&O X 3, morbidly obese, no acute distress, answers questions appropriately - Respiratory Respiratory exam: Present: CTAB. Absent: accessory muscle use, rales, rhonchi, wheezes Additional comments: Normal WOB - Cardiovascular Cardiovascular exam: Present: RRR, +S1, +S2. Absent: diastolic murmur, gallop, rubs, systolic murmur Additional comments: 2+ pitting BLE edema - GI/Abdominal GI/Abdominal exam: Present: normal bowel sounds, soft. Absent: distended, hepatomegaly, mass, splenomegaly, tenderness - Psychiatric Psychiatric exam: Present: normal affect, normal mood. Absent: anxious, depressed - Skin Skin exam: Present: dry, intact, warm. Absent: cyanosis, rash Internal Medicine: Result - Labs CBC & Chem 7: 11/16/17 05:49 11/16/17 11:49 Labs: Short CBC 11/16/17 Range/Units 05:49 WBC 9.6 (4.3-11.1) K/mcL Hgb 11.1 L (11.5-15.4) g/dL Hct 37.6 (35.3-44.9) % Plt Count 204 (140-400) K/mcL Neutrophils # 8.5 (1.6-8.9) K/mcL BMP 11/16/17 11:49 Sodium 144 Potassium 4.3 Chloride 107 Carbon Dioxide 30 H BUN 68 H Creatinine 1.31 H Glucose 72 Calcium 9.4 - ABG Interpretation ABG results: ABG ABG pH 7.34 pH Units (7.32-7.45) 11/10/17 08:03 ABG pCO2 53 mmHg (35-45) H 11/10/17 08:03 ABG pO2 87 mmHg (85-104) D 11/10/17 08:03 ABG O2 Saturation 96 % (95-98) 11/10/17 08:03 PT/INR, D-dimer PT 13.9 Seconds (9.4-12.1) H 11/09/17 09:13 Consult Discharge Plan - Plan Referrals: Mary Stanford MD [Partnered Physician] - 11/29/17 11:15 am Betty Cordova MD [Partnered Physician] - 11/29/17 9:00 am Lang Jarvis DO [Primary Care Provider] - 11/18/17 11:30 am
[2017-11-16] MEDS: Melatonin 3 MG TABLET PO SCH (23:06)
[2017-11-17] MEDS: Ipratropium/Albuterol Neb 3 ML IH SCH ×4 (03:25→16:02)
[2017-11-17] MEDS: *HR* Enoxaparin 40 MG/0.4 ML SYRINGE SQ SCH (06:38)
[2017-11-17] MEDS: Pregabalin 75 MG CAPSULE PO SCH (08:56)
[2017-11-17] MEDS: FLUoxetine 20 MG CAPSULE PO SCH (08:56)
[2017-11-17] MEDS: Doxycycline 100 MG CAPSULE PO SCH (08:56)
[2017-11-17] MEDS: Aspirin Enteric Coated 81 MG Tablet PO SCH (08:56)
[2017-11-17] MEDS: Furosemide 40 MG/4 ML VIAL IVP SCH (08:56)
[2017-11-17] MEDS: amLODIPine 5 MG TABLET PO SCH (08:56)
[2017-11-17] MEDS: Metoprolol XL (24 HR) Succ 50 MG TAB.ER.24H PO SCH (08:57)
[2017-11-17] MEDS: predniSONE 20 MG TABLET PO SCH (08:57)
[2017-11-17] MEDS: *HR* Amiodarone 200 MG TABLET PO SCH (08:57)
[2017-11-17] MEDS: Cholecalciferol (D-3) 1,000 UNIT TABLET PO SCH (08:57)
[2017-11-17] MEDS ORDERED: Lisinopril 20 MG TABLET PO SCH (09:00)
[2017-11-17] MEDS: (Febuxostat [Uloric] 80 MG) PO SCH (09:02)
[2017-11-17] MEDS: Budesonide/Formoterol 160/4.5 MDI IH SCH (10:23)
[2017-11-17 11:27] VITALS: BP 177/59
[2017-11-17] MEDS: Patient Taking Own Medication 1 EACH SQ SCH (11:28)
[2017-11-17] MEDS: MICONAZOLE NITRATE APPL TP SCH (11:29)
--- NOTE | 2017-11-17 16:26 | Discharge Summary ---
- NOTES TO OUTPATIENT PROVIDER Notes to Outpatient Provider: Follow up with PCP in 2-3 days after discharge. Check BMP at follow up. Date of Encounter: 11/17/17 Time of Encounter: 16:24 - Discharge Diagnosis (1) Acute and chronic respiratory failure with hypoxia Priority: Primary Status: Chronic (2) Acute exacerbation of chronic obstructive airways disease Priority: Secondary Status: Acute (3) Diastolic dysfunction with chronic heart failure Priority: Secondary Status: Chronic (4) Paroxysmal a-fib Priority: Secondary Status: Chronic (5) History of lower GI bleeding Priority: Secondary Status: Chronic (6) CKD (chronic kidney disease) Priority: Secondary Status: Chronic Qualifiers: Chronic kidney disease stage: stage 3 (moderate) Qualified Code(s): N18.3 - Chronic kidney disease, stage 3 (moderate) Hospital course: Ms. Feliciano is a 62 year old female admitted for acute on chronic respiratory failure likely secondary to HCAP and COPD exacerbation. She was admitted to general medical floor with telemetry. She was started on vancomycin and doxycycline for HCAP. V/Q scan showed low probability for PE. She was started on scheduled duonebs and BiPAP, and IV steroids for COPD exacerbation and acute on chronic respiratory failure. She required BiPAP continuous for 2 days. She was weaned to [address] (she is on [address] at home). Mucinex was added for copious secretions. Tessalon perles added for cough. Aztreonam was added to her antibiotic regimen. Lasix was added for edema and chronic diastolic heart failure. Respiratory status slowly improved. Steroids were weaned to PO prednisone. Antibiotics were deescalated to only doxycycline. She completed 9 days of antibiotics. She was weaned to her home supplemental oxygen [address] She will be discharged home with prednisone taper. She will follow up with PCP in 2-3 days after discharge. Patient has met maximum benefit of this hospitalization and will be discharged home with home hospice in stable condition. Discharge discussed with: patient, nurse, case management, other (Pharmacist) - Time Spent with Patient Total time spent providing and/or coordinating discharge services: Greater than 30 minutes - Discharge Medications Prescriptions: predniSONE [Prednisone] 10 mg PO DAILY 15 Days #48 tab.[email or web address] Home Medications: Albuterol Neb [Proventil Neb] 2.5 mg IH Q6H PRN 02/07/16 [History] Albuterol Sulfate [Proventil Hfa] 2 puff IH Q4H PRN 02/07/16 [History] Insulin Regular U-500 [HumuLIN R U-500] 0 unit .ROUTE PRN PRN 02/07/16 [History ] Pregabalin [Lyrica] 75 mg PO BID 02/07/16 [History] Melatonin 10 mg PO HS #30 capsule 02/11/16 [Rx] B12/Levomefolate Calcium/B-6 [Foltx Tablet] 1 tab PO QPM 02/29/16 [History] Budesonide/Formoterol 160/4.5 [Symbicort 160/4.5] 2 puff IH BIDR 30 Days inhaler 03/03/16 [Rx] Cholecalciferol (Vitamin D3) [Dialyvite Vitamin D] 5,000 unit PO QAM 03/27/16 [ History] Omeprazole 40 mg PO QPM 03/27/16 [History] Amiodarone [Cordarone] 200 mg PO DAILY #30 tablet 04/11/16 [Rx] Acetaminophen [Tylenol] 500 mg PO Q6HR PRN 06/12/16 [History] Oxygen 2 l NS AD 06/12/16 [History] Febuxostat [Uloric] 80 mg PO DAILY 09/10/16 [History] Levothyroxine [Synthroid] 88 mcg PO DAILY 09/10/16 [History] Furosemide [Lasix] 40 mg PO BIDDIURETIC #60 tablet 10/16/16 [Rx] Lisinopril [Zestril] 40 mg PO DAILY #30 tablet 10/16/16 [Rx] Metoprolol XL (24 HR) Succ [Toprol Xl] 50 mg PO QAM #0 10/16/16 [Rx] amLODIPine [Norvasc] 10 mg PO DAILY #30 tablet 10/16/16 [Rx] Atorvastatin Calcium [Lipitor] 20 mg PO HS 01/02/17 [History] Docusate [Colace] 100 mg PO BID PRN #60 capsule 01/03/17 [Rx] Miconazole Nitrate [Miconazorb AF] 1 appl TP DAILY 10/20/17 [History] Aspirin [Lo-Dose Aspirin EC] 81 mg PO DAILY 11/09/17 [History] FLUoxetine HCl [Prozac] 20 mg PO DAILY 11/09/17 [History] Montelukast [Singulair] 10 mg PO DAILY 11/09/17 [History] predniSONE [Prednisone] 10 mg PO DAILY 15 Days #48 tab.ds.pk 11/17/17 [Rx] Allergies/Adverse Reactions: 3 Allergy/AdvReac Type Severity Reaction Status Date / Time ciprofloxacin [From Cipro] Allergy Severe Anaphylaxis Verified 08/05/16 14:01 clarithromycin [From Biaxin] Allergy Severe Hives Verified 09/10/16 20:30 clonidine Allergy Severe Anaphylaxis Verified 08/05/16 14:01 levofloxacin [From Levaquin] Allergy Severe Anaphylaxis Verified 08/05/16 14:01 Warfarin Allergy Severe Difficulty Verified 09/10/16 20:30 Breathing Cefaclor Allergy Anaphylaxis Verified 04/09/16 08:47 codeine Allergy Rash Verified 09/10/16 20:30 Hydralazine Allergy Hives Verified 09/10/16 20:30 sulfamethoxazole Allergy Hives Verified 10/22/17 20:36 [From Bactrim] trimethoprim [From Bactrim] Allergy Hives Verified 10/22/17 20:36 tiotropium AdvReac Severe Blurry Verified 11/09/17 10:21 [From Spiriva with Vision HandiHaler] acarbose AdvReac Blurry Verified 11/09/17 10:21 Vision atorvastatin [From Lipitor] AdvReac Muscle Pain Verified 09/10/16 20:30 fenofibrate [From Tricor] AdvReac Muscle Pain Verified 09/10/16 20:30 rivaroxaban [From Xarelto] AdvReac Gastrointestinal Verified 09/10/16 16:35 Upset Date of admission: 11/09/17 13:32 Primary care physician: Lang Jarvis DO Consults: 11/09/17 14:23 Consult to Client Leader [CONS] Routine Reason for Consult: Has [facility] Has Home O2 through [employer] [facility] Discharging clinician: Adilson Chavis Anticipated date of discharge: 11/17/17 - Constitutional Vitals: Temp Pulse Resp BP Pulse Ox 97.8 F 58 16 177/59 97 11/17/17 11:26 11/17/17 11:26 11/17/17 16:02 11/17/17 11:26 11/17/17 16:02 General appearance: Present: cooperative, A&O X 3, morbidly obese, no acute distress, answers questions appropriately - Respiratory Respiratory exam: Present: CTAB. Absent: accessory muscle use, rales, rhonchi, wheezes Additional comments: Normal WOB - Cardiovascular Cardiovascular exam: Present: RRR, +S1, +S2. Absent: diastolic murmur, gallop, rubs, systolic murmur Additional comments: 2+ pitting BLE edema - GI/Abdominal GI/Abdominal exam: Present: normal bowel sounds, soft. Absent: distended, hepatomegaly, mass, splenomegaly, tenderness - Psychiatric Psychiatric exam: Present: normal affect, normal mood. Absent: anxious, depressed - Skin Skin exam: Present: dry, intact, warm. Absent: cyanosis, rash - Patient Status Disposition: Hospice - Home Condition: Good Overall status at discharge: patient is progressing back to baseline - Discharge Instructions Follow Up With: Mary Stanford MD [Partnered Physician] - 11/29/17 11:15 am Betty Cordova MD [Partnered Physician] - 11/29/17 9:00 am Lang Jarvis DO [Primary Care Provider] - 11/18/17 11:30 am Additional Instructions: Follow up with PCP in 2-3 days after discharge. Check BMP at follow up. - Diet and Activity Activity: resume usual activities as tolerated Diet: advance to your usual diet - VTE Reasons for not Prescribing Prophylaxis: Medical contraindication (History of GI bleed.)
== END 2017-11-17 17:08 | disposition hospice, home (50) | DRG 190 ==
LOC: EMEROO 08:33 → 2NENU 13:32
PROVIDERS: ADMIT Family Medicine; ATTEND Internal Medicine

== ENCOUNTER 2017-11-30 10:57 | Inpatient (IN) ==
[2017-11-30] MEDS ORDERED: *HR* Dextrose 50 % in Water (Syg) 50 ML SYRINGE IVP ONE (11:11)
[2017-11-30 11:55] LABS: Basophils % 0.1 %; Eosinophils # 0.2 K/mcL (0.0-0.6); Eosinophils % 1.1 %; Hemoglobin 10.6 g/dL (11.5-15.4); Immature Granulocytes % 0.7 % (0-4); Lymphocytes # 0.4 K/mcL (0.6-4.6); Lymphocytes % 3.1 %; Mean Corpuscular HGB Conc 30.3 g/dL (31.6-35.5); Mean Corpuscular Volume 89.1 fL (83.0-100.0); Mean Platelet Volume 11.9 fL (9.4-12.4); Monocytes # 0.7 K/mcL (0.0-1.3); Monocytes % 4.9 %; Neutrophils # 12.1 K/mcL (1.6-8.9); Platelet Count 134 K/mcL (140-400); Red Blood Count 3.93 M/mcL (3.82-4.97); Red Cell Distribution Width 18.8 % (11.5-14.5); Segmented Neutrophils % 90.1 %
[2017-11-30 12:13] LABS: Troponin I < 0.03 ng/mL (< 0.04)
[2017-11-30 12:24] LABS: Thyroid Stimulating Hormone 14.508 mcIU/mL (0.340-5.600)
[2017-11-30 12:27] LABS: Bilirubin,Urine Negative (Negative); Blood,Urine Negative (Negative); Clarity,Urine Clear (Clear); Color,Urine Yellow (Yellow); Glucose,Urine (UA) Normal (Normal); Ketones,Urine Negative (Negative); Leukocyte Esterase,Urine Negative (Negative); Nitrite,Urine Negative (Negative); Protein,Urine 100 mg/dL (Neg-Trace); Specific Gravity,Urine 1.021 (1.010-1.025); Urobilinogen,Urine Normal (Normal)
[2017-11-30 12:31] LABS: Bacteria,Urine None Seen per hpf (None-Few); Hyaline Casts,Urine None Seen per lpf (None-Few); Squamous Epithelial Cell,Urine Moderate per lpf (None-Few); WBC,Urine 0-3 per hpf (0-3)
[2017-11-30 12:39] LABS: Alanine Aminotransferase 76 Units/L (7-52); Albumin 3.5 g/dL (3.5-5.7); Albumin/Globulin Ratio 1.3 (1.1-2.2); Alkaline Phosphatase 159 Units/L (34-104); Aspartate Amino Transferase 73 Units/L (13-39); BUN/Creatinine Ratio 50 (6-26); Bilirubin,Total 1.1 mg/dL (0.3-1.0); Blood Urea Nitrogen 58 mg/dL (8-23); Calcium 9.3 mg/dL (8.6-10.3); Carbon Dioxide 27 mEq/L (23-29); Chloride 105 mEq/L (98-107); Globulin 2.7 g/dL (2.4-3.5); Glucose 52 mg/dL (70-105); Osmolality,Calculated 306 (280-300); Potassium 4.9 mEq/L (3.5-5.1); Sodium 141 mEq/L (136-145); Total Protein 6.2 g/dL (6.4-8.9); eGFR For African Americans 57 (> 60); eGFR For Non-African Americans 47 (> 60)
[2017-11-30] MEDS ORDERED: Levofloxacin 750 MG/150 ML 750 MG/150 ML BAG IVPB ONE (14:46)
--- NOTE | 2017-11-30 14:46 | Emergency Department Note ---
Disposition Clinical Impression: Hypoglycemia Disposition: Admitted As Inpatient Condition: Good General Adult HPI - General Chief complaint: ED Weakness Stated complaint: weakness Time Seen by Provider: 11/30/17 11:08 Source: patient, EMS Limitations: no limitations Vital Signs Reviewed: Yes - History of Present Illness HPI Narrative: This is a 62-year-old female with a history of multiple medical conditions or presents with concern for weakness. She does have recent diagnosis of pneumonia. She is residing at a [facility] currently and undergoing rehabilitation services. She has complaints today of near syncopal event. She actually did not pass out but felt extremely weak. They have been having trouble managing her blood glucose since the onset of her pneumonia. She was found to be hypoglycemic but no intervention was provided prior to arrival here. She did not fall or strike anything. She has no neurological deficits. General: No acute distress HEENT: Pupils equal and reactive to light, extraoccular muscle movement is normal, TMS are clear bilaterally. Heart: RRR, No murmor rub or gallop Lungs: lungs clear, no wheezing, rales or ronchi. ABD: SNT, no focal areas or tenderness, no guarding or rebound tenderness. Extremities: No cyanosis, clubbing or edema Neuro: CN 2-12 in tact, no focal deficit. strength 5/5. Medical decision-making Concern for ongoing hypoglycemia. She did respond to intravenous dextrose and food. I am concerned about sending her home given her ongoing hypoglycemia. I suspect she has had increased metabolic demands given recent infection. She has multiple allergies and has no symptoms of productive sputum, no cough, no fever or tachypnea at this time. I would defer antibiotic administration to the hospitalist team as the patient has no overt objective infection at this time. Chest x-ray shows some pulmonary edema versus possible underlying pneumonia but given recent antibiotic course this may be somewhat subacute. The patient will be admitted for further evaluation and management of weakness in the setting of hypoglycemia. I spent greater than 35 minutes of critical care time resuscitating this acutely ill patient suffering from hypoglycemia. This is excluding all procedures. Pain Scale: 0 - Related Data Home Medications Medication Instructions Recorded Confirmed Albuterol Neb [Proventil Neb] 2.5 mg IH Q4H 02/07/16 11/30/17 Albuterol Sulfate [Proventil Hfa] 2 puff IH Q4H PRN 02/07/16 11/30/17 Pregabalin [Lyrica] 75 mg PO TID 02/07/16 11/30/17 B12/Levomefolate Calcium/B-6 1 tab PO QPM 02/29/16 11/30/17 [Foltx Tablet] Cholecalciferol (Vitamin D3) 5,000 unit PO QAM 03/27/16 11/30/17 [Dialyvite Vitamin D] Omeprazole 40 mg PO QPM 03/27/16 11/30/17 Acetaminophen [Tylenol] 500 mg PO Q6HR PRN 06/12/16 11/30/17 Oxygen 4 l NS AD 06/12/16 11/30/17 Febuxostat [Uloric] 80 mg PO DAILY 09/10/16 11/30/17 Atorvastatin Calcium [Lipitor] 20 mg PO HS 01/02/17 11/30/17 Aspirin [Lo-Dose Aspirin EC] 81 mg PO DAILY 11/09/17 11/30/17 FLUoxetine HCl [Prozac] 20 mg PO DAILY 11/09/17 11/30/17 Montelukast [Singulair] 10 mg PO DAILY 11/09/17 11/30/17 Furosemide [Lasix] 40 mg PO BID 11/30/17 11/30/17 Subcutaneous Insulin Pump [T:Slim] 1 each AD 11/30/17 11/30/17 predniSONE [Prednisone] See Taper PO DAILY 11/30/17 11/30/17 Previous Rx's Medication Instructions Recorded Melatonin 10 mg PO HS #30 capsule 02/11/16 Budesonide/Formoterol 160/4.5 2 puff IH BIDR 30 Days inhaler 03/03/16 [Symbicort 160/4.5] Amiodarone [Cordarone] 200 mg PO DAILY #30 tablet 04/11/16 Lisinopril [Zestril] 40 mg PO DAILY #30 tablet 10/16/16 amLODIPine [Norvasc] 10 mg PO DAILY #30 tablet 10/16/16 Docusate [Colace] 100 mg PO BID PRN #60 capsule 01/03/17 Hydrocortisone [Anusol-Hc] 30 gm RC BID #1 cream..g. 12/03/17 Levothyroxine [Synthroid] 150 mcg PO QAM #30 tablet 12/03/17 Metoprolol Succinate [Toprol Xl] 25 mg PO QDPC #30 tab.er.24h 12/03/17 Allergies Allergy/AdvReac Type Severity Reaction Status Date / Time ciprofloxacin [From Cipro] Allergy Severe Anaphylaxis Verified 11/30/17 10:59 clarithromycin [From Biaxin] Allergy Severe Hives Verified 11/30/17 10:59 clonidine Allergy Severe Anaphylaxis Verified 11/30/17 10:59 levofloxacin [From Levaquin] Allergy Severe Anaphylaxis Verified 11/30/17 10:59 Warfarin Allergy Severe Difficulty Verified 11/30/17 10:59 Breathing Cefaclor Allergy Anaphylaxis Verified 11/30/17 10:59 codeine Allergy Rash Verified 11/30/17 10:59 Hydralazine Allergy Hives Verified 11/30/17 10:59 sulfamethoxazole Allergy Hives Verified 11/30/17 10:59 [From Bactrim] trimethoprim [From Bactrim] Allergy Hives Verified 11/30/17 10:59 tiotropium AdvReac Severe Blurry Verified 11/30/17 10:59 [From Spiriva with Vision HandiHaler] acarbose AdvReac Blurry Verified 11/30/17 10:59 Vision atorvastatin [From Lipitor] AdvReac Muscle Pain Verified 11/30/17 10:59 fenofibrate [From Tricor] AdvReac Muscle Pain Verified 11/30/17 10:59 rivaroxaban [From Xarelto] AdvReac Gastrointestinal Verified 11/30/17 10:59 Upset All systems ED: reviewed and negative except as stated. 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 history - Social History Smoking Status: Former smoker Smokeless Tobacco Status: No Alcohol use: Reports: none Drug use: Reports: none Physical Exam - General Limitations: no limitations General appearance: alert, in no apparent distress Course Vital Signs Temperature 97.2 F L 11/30/17 10:59 Pulse Rate 48 11/30/17 10:59 Respiratory Rate 20 11/30/17 10:59 Blood Pressure 169/78 11/30/17 10:59 O2 Sat by Pulse Oximetry 100 11/30/17 10:59 Temperature 97.4 F L 12/03/17 11:00 Pulse Rate 55 12/03/17 11:00 Respiratory Rate 20 12/03/17 11:41 Blood Pressure 174/71 12/03/17 11:00 O2 Sat by Pulse Oximetry 96 12/03/17 11:41 Oxygen Delivery Oxygen Delivery Nasal Cannula Medical Decision Making - Lab Data Result diagrams: 12/03/17 05:19 12/03/17 05:19 Lab Results 11/30/17 11/30/17 11/30/17 Range/Units 11:06 11:07 11:34 WBC 13.4 H (4.3-11.1) K/mcL RBC 3.93 (3.82-4.97) M/mcL Hgb 10.6 L (11.5-15.4) g/dL Hct 35.0 L (35.3-44.9) % MCV 89.1 (83.0-100.0) fL MCH 27.0 L (28.0-33.3) pg MCHC 30.3 L (31.6-35.5) g/dL RDW 18.8 H (11.5-14.5) % Plt Count 134 L (140-400) K/mcL MPV 11.9 (9.4-12.4) fL Immature Gran % 0.7 (0-4) % Seg Neutrophils % 90.1 % Lymphocytes % 3.1 % Monocytes % 4.9 % Eosinophils % 1.1 % Basophils % 0.1 % Neutrophils # 12.1 H (1.6-8.9) K/mcL Lymphocytes # 0.4 L (0.6-4.6) K/mcL Monocytes # 0.7 (0.0-1.3) K/mcL Eosinophils # 0.2 (0.0-0.6) K/mcL Basophils # 0.0 (0.0-0.2) K/mcL Sodium (136-145) mEq/L Potassium (3.5-5.1) mEq/L Chloride (98-107) mEq/L Carbon Dioxide (23-29) mEq/L BUN (8-23) mg/dL Creatinine (0.60-1.20) mg/dL Est GFR ( Amer) (> 60) Est GFR (Non-Af Amer) (> 60) BUN/Creatinine Ratio (6-26) Glucose (70-105) mg/dL POC Glucose 52 L 55 L (58-89) Calculated Osmolality (280-300) Lactic Acid (0.5-2.2) mmol/L Calcium (8.6-10.3) mg/dL Total Bilirubin (0.3-1.0) mg/dL AST (13-39) Units/L ALT (7-52) Units/L Alkaline Phosphatase (34-104) Units/L Troponin I (< 0.04) ng/mL B-Natriuretic Peptide (Less than 100) pg/mL Serum Total Protein (6.4-8.9) g/dL Albumin (3.5-5.7) g/dL Globulin (2.4-3.5) g/dL Albumin/Globulin Ratio (1.1-2.2) TSH (0.340-5.600) mcIU/mL Ur Specimen Adequacy Urine Color (Yellow) Urine Clarity (Clear) Urine pH (5.0-8.0) pH Units Ur Specific [place] (1.010-1.025) Urine Protein (Neg-Trace) mg/dL Urine Glucose (UA) (Normal) mg/dL Urine Ketones (Negative) mg/dL Urine Blood (Negative) Urine Nitrite (Negative) Urine Bilirubin (Negative) Urine Urobilinogen (Normal) mg/dL Ur Leukocyte Esterase (Negative) Urine Microscopic RBC (0-3) per hpf Urine Microscopic WBC (0-3) per hpf Ur Squamous Epith Cells (None-Few) per lpf Urine Bacteria (None-Few) per hpf Hyaline Casts (None-Few) per lpf Ur Culture Indicated? (NO) 11/30/17 11/30/17 11/30/17 Range/Units 11:34 11:34 11:34 WBC (4.3-11.1) K/mcL RBC (3.82-4.97) M/mcL Hgb (11.5-15.4) g/dL Hct (35.3-44.9) % MCV (83.0-100.0) fL MCH (28.0-33.3) pg MCHC (31.6-35.5) g/dL RDW (11.5-14.5) % Plt Count (140-400) K/mcL MPV (9.4-12.4) fL Immature Gran % (0-4) % Seg Neutrophils % % Lymphocytes % % Monocytes % % Eosinophils % % Basophils % % Neutrophils # (1.6-8.9) K/mcL Lymphocytes # (0.6-4.6) K/mcL Monocytes # (0.0-1.3) K/mcL Eosinophils # (0.0-0.6) K/mcL Basophils # (0.0-0.2) K/mcL Sodium 141 (136-145) mEq/L Potassium 4.9 (3.5-5.1) mEq/L Chloride 105 (98-107) mEq/L Carbon Dioxide 27 (23-29) mEq/L BUN 58 H (8-23) mg/dL Creatinine 1.16 (0.60-1.20) mg/dL Est GFR ( Amer) 57 L (> 60) Est GFR (Non-Af Amer) 47 L (> 60) BUN/Creatinine Ratio 50 H (6-26) Glucose 52 L (70-105) mg/dL POC Glucose (58-89) Calculated Osmolality 306 H (280-300) Lactic Acid 0.7 (0.5-2.2) mmol/L Calcium 9.3 (8.6-10.3) mg/dL Total Bilirubin 1.1 H (0.3-1.0) mg/dL AST 73 H (13-39) Units/L ALT 76 H (7-52) Units/L Alkaline Phosphatase 159 H (34-104) Units/L Troponin I < 0.03 (< 0.04) ng/mL B-Natriuretic Peptide 822 H (Less than 100) pg/mL Serum Total Protein 6.2 L (6.4-8.9) g/dL Albumin 3.5 (3.5-5.7) g/dL Globulin 2.7 (2.4-3.5) g/dL Albumin/Globulin Ratio 1.3 (1.1-2.2) TSH 14.508 H (0.340-5.600) mcIU/mL Ur Specimen Adequacy Urine Color (Yellow) Urine Clarity (Clear) Urine pH (5.0-8.0) pH Units Ur Specific [place] (1.010-1.025) Urine Protein (Neg-Trace) mg/dL Urine Glucose (UA) (Normal) mg/dL Urine Ketones (Negative) mg/dL Urine Blood (Negative) Urine Nitrite (Negative) Urine Bilirubin (Negative) Urine Urobilinogen (Normal) mg/dL Ur Leukocyte Esterase (Negative) Urine Microscopic RBC (0-3) per hpf Urine Microscopic WBC (0-3) per hpf Ur Squamous Epith Cells (None-Few) per lpf Urine Bacteria (None-Few) per hpf Hyaline Casts (None-Few) per lpf Ur Culture Indicated? (NO) 11/30/17 Range/Units 12:05 WBC (4.3-11.1) K/mcL RBC (3.82-4.97) M/mcL Hgb (11.5-15.4) g/dL Hct (35.3-44.9) % MCV (83.0-100.0) fL MCH (28.0-33.3) pg MCHC (31.6-35.5) g/dL RDW (11.5-14.5) % Plt Count (140-400) K/mcL MPV (9.4-12.4) fL Immature Gran % (0-4) % Seg Neutrophils % % Lymphocytes % % Monocytes % % Eosinophils % % Basophils % % Neutrophils # (1.6-8.9) K/mcL Lymphocytes # (0.6-4.6) K/mcL Monocytes # (0.0-1.3) K/mcL Eosinophils # (0.0-0.6) K/mcL Basophils # (0.0-0.2) K/mcL Sodium (136-145) mEq/L Potassium (3.5-5.1) mEq/L Chloride (98-107) mEq/L Carbon Dioxide (23-29) mEq/L BUN (8-23) mg/dL Creatinine (0.60-1.20) mg/dL Est GFR ( Amer) (> 60) Est GFR (Non-Af Amer) (> 60) BUN/Creatinine Ratio (6-26) Glucose (70-105) mg/dL POC Glucose (58-89) Calculated Osmolality (280-300) Lactic Acid (0.5-2.2) mmol/L Calcium (8.6-10.3) mg/dL Total Bilirubin (0.3-1.0) mg/dL AST (13-39) Units/L ALT (7-52) Units/L Alkaline Phosphatase (34-104) Units/L Troponin I (< 0.04) ng/mL B-Natriuretic Peptide (Less than 100) pg/mL Serum Total Protein (6.4-8.9) g/dL Albumin (3.5-5.7) g/dL Globulin (2.4-3.5) g/dL Albumin/Globulin Ratio (1.1-2.2) TSH (0.340-5.600) mcIU/mL Ur Specimen Adequacy See below A Urine Color Yellow (Yellow) Urine Clarity Clear (Clear) Urine pH 6.0 (5.0-8.0) pH Units Ur Specific [place] 1.021 (1.010-1.025) Urine Protein 100 H (Neg-Trace) mg/dL Urine Glucose (UA) Normal (Normal) mg/dL Urine Ketones Negative (Negative) mg/dL Urine Blood Negative (Negative) Urine Nitrite Negative (Negative) Urine Bilirubin Negative (Negative) Urine Urobilinogen Normal (Normal) mg/dL Ur Leukocyte Esterase Negative (Negative) Urine Microscopic RBC 3-5 H (0-3) per hpf Urine Microscopic WBC 0-3 (0-3) per hpf Ur Squamous Epith Cells Moderate H (None-Few) per lpf Urine Bacteria None Seen (None-Few) per hpf Hyaline Casts None Seen (None-Few) per lpf Ur Culture Indicated? NO (NO)
[2017-11-30] MEDS ORDERED: Acetaminophen 325 MG TABLET PO PRN (16:22)
[2017-11-30] MEDS ORDERED: Naloxone 0.4 MG/ML INJ IVP PRN (16:22)
[2017-11-30] MEDS ORDERED: *HR* Dextrose 50 % in Water (Syg) 50 ML SYRINGE IVP PRN (16:39)
[2017-11-30] MEDS ORDERED: Dextrose Gel 15 GM/37.5 ML TUBE PO PRN ×2 (16:39)
[2017-11-30] MEDS ORDERED: D5% in Water 1,000 ML IVC PRN (16:39)
[2017-11-30] MEDS: D5% in 0.45% NACL 1,000 ML IVC SCH ×2 (16:44→17:21)
[2017-11-30] MEDS ORDERED: D10% in 0.2 % NACL 250 ML IVC SCH (16:45)
--- NOTE | 2017-11-30 16:47 | Internal Med History&Physical ---
Date of Encounter: 11/30/17 Time of Encounter: 16:00 Assessment and Plan (1) Diastolic CHF, acute on chronic Current visit: Yes Status: Acute Acute exacerbation of diastolic CHF. She reports increasing shortness of breath and pedal edema over the past week. Also reports orthopnea causing her to sleep in recliner. Patient takes 40 mg twice a day by mouth of Lasix daily. Will hold PO Lasix and administer IVP Lasix 60 mg twice a day. Monitor I&O and daily weight. 1.5L daily fluid restriction. Echocardiogram on 10/18/17 showed LVEF of 55-60%; left ventricle with normal chamber size, wall thickness, and function; moderate left ventricular diastolic dysfunction; right ventricle not well visualized. Unable to estimated RSVP due to lack of TR jet. Valves were not well visualized. No obvious valvular dysfunction noted. Continuous cardiac telemetry. Pt. discussed w/Dr. Boggs who agrees w/plan of care. Pt. is high risk for further morbidity and respiratory distress based on current fluid volume overload, SOB/dyspnea, hx of recent pneumonia requiring hospitalization, hx of recent uncontrolled BG resulting in hypoglycemia, and risk factors. Inpatient. (2) Dyspnea Current visit: Yes Status: Acute Acute dyspnea and SOB r/t pts. current acute exacerbation of CHF. Patient reports using home oxygen at 4 L. Will continue supplemental O2 with titration and SPO2 monitoring. Continue BiPAP at bedtime with on/off times. Continue pts. inhalers and nebulizer tx. Falls/safety precautions. Qualifiers: Dyspnea type: unspecified Qualified Code(s): R06.00 - Dyspnea, unspecified (3) Generalized weakness Current visit: Yes Status: Acute Acute and generalized weakness since pneumonia dx in October. Hx of falls. Falls/safety precautions, up with assist, bed rest w/bathroom privileges w/ assist only. PT/OT consults to assess for ambulation strength and safety. (4) Hypoglycemia Current visit: Yes Status: Acute Acute hypoglycemia. Pt. reports hypoglycemia since October. Wears insulin pump but discontinued pump presently d/t low BG. BG checks Q2HR until hypoglycemia improves. A1c in a.m. labs. IV D10 in .20 NaCl. Will add low-dose correction insulin w/hypoglycemic protocol PRN. Pt. should follow up on OP basis w/ Endocrinology. (5) Bradycardia Current visit: Yes Status: Chronic Hx of acute on chronic bradycardia. HR in mid-forties on admission which is slightly lower than pts. recent hx. Will reduce pts. Metoprolol from 50 mg daily to 25 mg daily. Continuous cardiac telemetry. Falls/safety precautions. (6) HTN (hypertension) Current visit: Yes Status: Chronic Hx of chronic HTN. Monitor pt. and VS. continue patient's Norvasc, lisinopril, and metoprolol. Will decrease patient's metoprolol dose from 50 mg daily to 25 mg daily due to current bradycardia. Monitor pt. Qualifiers: Hypertension type: essential hypertension Qualified Code(s): I10 - Essential (primary) hypertension (7) HLD (hyperlipidemia) Current visit: Yes Status: Chronic Hx of chronic HLD. Lipid panel in a.m. labs. Continue pts. Lipitor. Qualifiers: Hyperlipidemia type: pure hypercholesterolemia Qualified Code(s): E78.00 - Pure hypercholesterolemia, unspecified; E78.0 - Pure hypercholesterolemia (8) Thyroid disease Current visit: Yes Status: Chronic Hx of chronic thyroid disease. Pts. TSH currently 14.508 on admission. Will continue pts. Synthroid. Pt. would benefit from Endocrinology f/u as OP for thyroid disease and current hypoglycemia. (9) Anemia in chronic kidney disease Current visit: Yes Status: Chronic Hx of chronic anemia in CKD. Current Hbg 10.6 and Hct 35.0 on admission which is at or near pts. recent baseline. Monitor f/u labs. Qualifiers: Chronic kidney disease stage: stage 3 (moderate) Qualified Code(s): N18.3 - Chronic kidney disease, stage 3 (moderate); D63.1 - Anemia in chronic kidney disease; D63.1 - Anemia in chronic kidney disease (10) CKD (chronic kidney disease) Current visit: Yes Status: Chronic Hx of CKD. Currently stage 3 w/GFR of 47. Will use IV fluids judiciously d/t current renal dysfunction as well as CHF exacerbation. Avoid nephrotoxins. Qualifiers: Chronic kidney disease stage: stage 3 (moderate) Qualified Code(s): N18.3 - Chronic kidney disease, stage 3 (moderate) (11) COPD (chronic obstructive pulmonary disease) Current visit: Yes Status: Chronic Hx of chronic COPD. Stable. Supplemental O2 w/titration and SpO2 monitoring. Continue prednisone taper. Continue pts. inhalers and nebulizer tx. Qualifiers: COPD type: unspecified COPD Qualified Code(s): J44.9 - Chronic obstructive pulmonary disease, unspecified (12) Atrial fibrillation Current visit: Yes Status: Chronic Hx of chronic atrial fibrillation. Pt. is currently not anti-coagulated except for aspirin daily. Continuous telemetry. Continue aspirin and amiodarone. Qualifiers: Atrial fibrillation type: chronic Qualified Code(s): I48.2 - Chronic atrial fibrillation (13) CAD (coronary artery disease) Current visit: Yes Status: Chronic Hx of chronic CAD w/two previous MIs in February and March 2017 and stent placement x1. Continuous cardiac telemetry. Continue pts. Amiodarone, Norvasc, aspirin, Lipitor, lisinopril, and Metoprolol. Will reduce daily dose of Metoprolol from 50 mg to 25 mg daily d/t current bradycardia. Qualifiers: Coronary Disease-Associated Artery/Lesion type: [place] artery [place] vs. transplanted heart: [place] heart Associated angina: without angina Qualified Code(s): I25.10 - Atherosclerotic heart disease of [place] coronary artery without angina pectoris (14) DM (diabetes mellitus), type 2 Current visit: Yes Status: Chronic Hx of chronic diabetes controlled w/insulin pump. Pt. reports having hyperglycemia prior to pneumonia dx in October 2017. Now reports hypoglycemia w /BG in mid-fifties and lower. Pt. currently has pump turned off. IV D10 in .20 NaCl. Will add hypoglycemia protocol and low-dose correction insulin sliding scale PRN. BG checks Q2HR until hypoglycemia improves. A1c in a.m. labs. Qualifiers: Diabetes mellitus exterminator helper insulin use: with exterminator helper use Diabetes mellitus complication status: with kidney complications Diabetes mellitus complication detail: with chronic kidney disease Chronic kidney disease stage : stage 3 (moderate) Qualified Code(s): E11.22 - Type 2 diabetes mellitus with diabetic chronic kidney disease; N18.3 - Chronic kidney disease, stage 3 ( moderate); N18.3 - Chronic kidney disease, stage 3 (moderate); Z79.4 - care home (current) use of insulin; Z79.4 - care home (current) use of insulin; Z79.4 - care home (current) use of insulin; 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 Pt. reports using BiPAP HS. Will continue BiPAP nightly and supplemental O2 w/titration daily via NC. (16) History of DVT of lower extremity Current visit: Yes Status: Resolved Hx of DVT in LLE in 2016. Heparin 5,000 units SQ Q8 for DVT prophylaxis while inpt. Monitor pt. (17) DVT prophylaxis Current visit: Yes Status: Acute Heparin 5,000 units SQ Q8 for DVT prophylaxis. Monitor pt. for signs of bleeding. Internal Medicine - H&P: HPI Chief complaint: Generalized weakness/SOB Admitted From: Emergency Dept Plans for Post Hospital Care: Home History of present illness: Ms. Feliciano is a 62 year old female w/PMH of atrial fibrillation, CHF, COPD, CAD , DVT T in 2015, diabetes controlled by insulin pump, GI bleeding from hemorrhoids, HLD, HTN, previous MIs in February and March 2017, CK D, and thyroid disease presents from the ED today with chief complaint of generalized weakness and shortness of breath that has become progressively worse over the past week. Patient states she was diagnosed with pneumonia 10/17/2017 and has felt progressively worse since. Reports this is a third admission to the hospital and was discharged home week ago. Reports SOB, increasing pedal edema, and orthopnea over the past week with increased abdominal girth and no alleviating factors. Patient also reports she has been hypoglycemic since her pneumonia diagnosis reporting BG in the mid fifties and lower. Pt. denies nausea, vomiting , diarrhea, fever, changes in vision, headache, cough, chest pain, palpitations , abdominal pain, numbness, tingling, unusual bleeding, dizziness, lightheadedness, pre-syncope, or syncope. Past Med Surg Social Fam HX - Past Medical History Source: patient Medical history: atrial fibrillation, CHF, COPD, coronary artery disease, DVT ( 2016 in LLE), diabetes (Insulin-controlled by pump), GI bleed (D/t hemorrhoids) , hyperlipidemia, hypertension, myocardial infarction (February and March 2017 w/ stent x1), renal disease, thyroid disease Psychiatric history: anxiety, depression - Past Surgical History Surgical History: angioplasty/stent (x1), other - Social History Smoking Status: Former smoker Packs per day: Smoked 1/2 to 1 PPD - Reports quitting 20 years ago Smokeless Tobacco Status: No Alcohol use: none Drug use: none Current living situation: Home, With Family Activity Level: Uses cane/walker Recent Out of Country Travel Within the Last 8 Weeks: No Exposure or Possible Exposure to Illness During Travel: No - Family History Mother Race: Family Member Ethnicity: Non- Living Status: Still Living Hx Family Endocrine Disorder: Yes (DM) Hx Family Neurologic Disorders: Yes (Dementia) Brother Race: Family Member Ethnicity: Non- Living Status: Age at : 60 Cause of : Cellulitis infection Hx Family Cancer: Yes (colon cancer) Son Race: Family Member Ethnicity: Non- Living Status: Still Living Hx Family GI Disorders: Yes (high grade dysplasia polyps) Father Adopted: No Race: Family Member Ethnicity: Non- Living Status: Age at : 83 Cause of : HF Hx Family Cardiac Disorders: Yes ([place], CABG, HF) Hx Family Respiratory Disorders: Yes (COPD) Internal Medicine - H&P: Meds Albuterol Neb [Proventil Neb] 2.5 mg IH Q4H 02/07/16 [History] Albuterol Sulfate [Proventil Hfa] 2 puff IH Q4H PRN 02/07/16 [History] Pregabalin [Lyrica] 75 mg PO TID 02/07/16 [History] Melatonin 10 mg PO HS #30 capsule 02/11/16 [Rx] B12/Levomefolate Calcium/B-6 [Foltx Tablet] 1 tab PO QPM 02/29/16 [History] Budesonide/Formoterol 160/4.5 [Symbicort 160/4.5] 2 puff IH BIDR 30 Days inhaler 03/03/16 [Rx] Cholecalciferol (Vitamin D3) [Dialyvite Vitamin D] 5,000 unit PO QAM 03/27/16 [ History] Omeprazole 40 mg PO QPM 03/27/16 [History] Amiodarone [Cordarone] 200 mg PO DAILY #30 tablet 04/11/16 [Rx] Acetaminophen [Tylenol] 500 mg PO Q6HR PRN 06/12/16 [History] Oxygen 4 l NS AD 06/12/16 [History] Febuxostat [Uloric] 80 mg PO DAILY 09/10/16 [History] Lisinopril [Zestril] 40 mg PO DAILY #30 tablet 10/16/16 [Rx] Metoprolol XL (24 HR) Succ [Toprol Xl] 50 mg PO QAM #0 10/16/16 [Rx] amLODIPine [Norvasc] 10 mg PO DAILY #30 tablet 10/16/16 [Rx] Atorvastatin Calcium [Lipitor] 20 mg PO HS 01/02/17 [History] Docusate [Colace] 100 mg PO BID PRN #60 capsule 01/03/17 [Rx] Aspirin [Lo-Dose Aspirin EC] 81 mg PO DAILY 11/09/17 [History] FLUoxetine HCl [Prozac] 20 mg PO DAILY 11/09/17 [History] Montelukast [Singulair] 10 mg PO DAILY 11/09/17 [History] Furosemide [Lasix] 40 mg PO BID 11/30/17 [History] Levothyroxine [Synthroid] 100 mcg PO 0630 11/30/17 [History] Subcutaneous Insulin Pump [T:Slim] 1 each MC AD 11/30/17 [History] predniSONE [Prednisone] See Taper PO DAILY 11/30/17 [History] 3 Allergy/AdvReac Type Severity Reaction Status Date / Time ciprofloxacin [From Cipro] Allergy Severe Anaphylaxis Verified 11/30/17 10:59 clarithromycin [From Biaxin] Allergy Severe Hives Verified 11/30/17 10:59 clonidine Allergy Severe Anaphylaxis Verified 11/30/17 10:59 levofloxacin [From Levaquin] Allergy Severe Anaphylaxis Verified 11/30/17 10:59 Warfarin Allergy Severe Difficulty Verified 11/30/17 10:59 Breathing Cefaclor Allergy Anaphylaxis Verified 11/30/17 10:59 codeine Allergy Rash Verified 11/30/17 10:59 Hydralazine Allergy Hives Verified 11/30/17 10:59 sulfamethoxazole Allergy Hives Verified 11/30/17 10:59 [From Bactrim] trimethoprim [From Bactrim] Allergy Hives Verified 11/30/17 10:59 tiotropium AdvReac Severe Blurry Verified 11/30/17 10:59 [From Spiriva with Vision HandiHaler] acarbose AdvReac Blurry Verified 11/30/17 10:59 Vision atorvastatin [From Lipitor] AdvReac Muscle Pain Verified 11/30/17 10:59 fenofibrate [From Tricor] AdvReac Muscle Pain Verified 11/30/17 10:59 rivaroxaban [From Xarelto] AdvReac Gastrointestinal Verified 11/30/17 10:59 Upset All Systems PM: A 10-system review of systems was performed and is negative for pertinent findings except as documented above in the HPI. - Constitutional Constitutional: as per HPI, fatigue, falls, weakness, weight gain, no chills, no fever(s), no night sweats - EENT Eyes: no change in vision, no discharge, no pain, no photophobia Ears: no ear discharge, no ear pain, no tinnitus Nose, mouth and throat: no dysphagia, no nasal discharge, no neck pain, no sore throat - Breasts Breasts: as per HPI - Cardiovascular Cardiovascular ROS IM: as per HPI, dyspnea, dyspnea on exertion, edema ( Bilateral 2+ pitting edema in LEs), irregular heart rhythm (Hx of atrial fibrillation), orthopnea, no chest pain, no diaphoresis, no lightheadedness, no palpitations, no syncope - Respiratory Respiratory: as per HPI, dyspnea, dyspnea on exertion, no cough, no wheezing, no excessive phlegm production - Gastrointestinal Gastrointestinal: as per HPI, constipation (Occasional), no abdominal pain, no diarrhea, no hematemesis, no hematochezia, no melena, no nausea, no vomiting - Genitourinary Genitourinary: no change in urinary stream, no dysuria, no flank pain, no hematuria Menstruation: as per HPI - Musculoskeletal Musculoskeletal ROS IM: as per HPI, muscle weakness (Bilateral LEs), no numbness , no tingling - Integumentary Integumentary IM: no rash, no unusual bruising - Neurological Neurological ROS: as per HPI, frequent falls, weakness, no confusion, no convulsions, no focal weakness, no numbness, no tingling, no tremor(s) - Psychiatric Psychiatric: as per HPI, anxiety, depression - Endocrine Endocrine IM: as per HPI - Hematologic/Lymphatic Hematologic/Lymphatic: as per HPI, no easy bruising - Allergic/Immunologic Allergic/Immunologic: as per HPI - Constitutional Vitals: Temp Pulse Resp BP Pulse Ox 97.2 F L 46 18 176/67 99 11/30/17 10:59 11/30/17 14:43 11/30/17 14:43 11/30/17 14:43 11/30/17 14:43 General appearance: Present: cooperative, mild distress (Respiratory), A&O X 3, morbidly obese, pleasant, answers questions appropriately - Head Head exam: Present: atraumatic, normocephalic - Eye Eye exam: Present: PERRL, conjuntiva pink, sclera anicteric Pupils: Present: PERRL - ENT ENT exam: Present: normal exam, normal external ear exam - Neck Neck exam general surgery: Present: normal inspection, supple, trachea midline. Absent: lymphadenopathy - Respiratory Respiratory exam: Present: accessory muscle use, decreased breath sounds. Absent: rales, rhonchi, wheezes - Cardiovascular Cardiovascular exam: Present: irregular rhythm. Absent: diastolic murmur, gallop, rubs, systolic murmur - GI/Abdominal GI/Abdominal exam: Present: normal bowel sounds, soft, no peritoneal signs. Absent: distended, tenderness - Rectal Rectal exam: Present: deferred - Additional comments: exam deferred. - Extremities Exam Extremities exam: Present: pedal edema (2+ bilateral pitting edema in LEs), warm , radial pulses palpable and symmetrical. Absent: calf tenderness, cyanotic - Back Exam Back exam: Present: normal inspection - Neurological Exam Neurological exam: Present: CN II-XII intact, oriented X3, no focal deficits. Absent: pronater drift, facial droop, speech deficit - Psychiatric Psychiatric exam: Present: normal affect, normal mood - Skin Skin exam: Present: dry, erythema (Mild erythema in bilateral LEs), intact Internal Med - H&P Results - Labs CBC & Chem 7: 11/30/17 11:34 11/30/17 11:34 Labs: Short CBC 11/30/17 Range/Units 11:34 WBC 13.4 H (4.3-11.1) K/mcL Hgb 10.6 L (11.5-15.4) g/dL Hct 35.0 L (35.3-44.9) % Plt Count 134 L (140-400) K/mcL Neutrophils # 12.1 H (1.6-8.9) K/mcL BMP 11/30/17 11:34 Sodium 141 Potassium 4.9 Chloride 105 Carbon Dioxide 27 BUN 58 H Creatinine 1.16 Glucose 52 L Calcium 9.3 Cardiac Enzymes 11/30/17 Range/Units 11:34 Troponin I < 0.03 (< 0.04) ng/mL Liver Function 11/30/17 Range/Units 11:34 Total Bilirubin 1.1 H (0.3-1.0) mg/dL AST 73 H (13-39) Units/L ALT 76 H (7-52) Units/L Alkaline Phosphatase 159 H (34-104) Units/L Albumin 3.5 (3.5-5.7) g/dL Urine 11/30/17 Range/Units 12:05 Urine Color Yellow (Yellow) Urine Clarity Clear (Clear) Urine pH 6.0 (5.0-8.0) pH Units Ur Specific [place] 1.021 (1.010-1.025) Urine Protein 100 H (Neg-Trace) mg/dL Urine Glucose (UA) Normal (Normal) mg/dL - Impressions ITS Impressions Chest X-Ray 11/30/17 11:11 IMPRESSION: Findings suggesting mild vascular congestion with slightly improved right pleural effusion and associated airspace opacity, which may reflect atelectasis, but underlying pneumonia is not excluded. Continued imaging follow-up to include dedicated two view chest x-ray when patient can tolerate is recommended. D/ / Bubba Isabel / Bubba Isabel Interpreting Provider: Bubba Isabel Gallbladder Ultrasound 11/30/17 13:12 IMPRESSION: Cholelithiasis without specific sonographic evidence of acute cholecystitis. No intrahepatic biliary ductal dilatation. D/ / Sabas Flowers MD / Sabas Flowers MD Interpreting Provider: Sabas Flowers MD - Diagnostic Studies Chest x-ray Additional comments: Impressions Chest X-Ray 11/30/17 11:11 IMPRESSION: Findings suggesting mild vascular congestion with slightly improved right pleural effusion and associated airspace opacity, which may reflect atelectasis, but underlying pneumonia is not excluded. Continued imaging follow-up to include dedicated two view chest x-ray when patient can tolerate is recommended. D/ / Bubba Isabel / Bubba Isabel Interpreting Provider: Bubba Isabel Other Images Additional comments: Impressions Gallbladder Ultrasound 11/30/17 13:12
--- NOTE | 2017-11-30 16:54 | Event Note ---
Date of Encounter: 11/30/17 Time of Encounter: 16:51 I have independently seen and examined at the bedside, along with her family I have discussed plan of care with CUSTOMER SUCCESS SPECIALIST Fernando Frederick Recently discharged, represented for weakness and worsening shortness of breath and worsening leg swelling , she also reports her sugars have been in the 40s since her last admission, she has an insulin pump and has also bene having poor oral intake She has multiple medical problems Exam is significant for morbid obesity, diminished breath sounds bilaterally and 2+ pedal edema. Labs and Imaging reviewed: CXR with stable infiltrates from prior PNA, BNP 822, Hb at baseline, elevated WBC probably reactive vs steroids She will be admitted for hypoglycemia, CHF exacerbation , agree with diuresis/ daily weights, fluid restriction, no indication for antibiotics, D10 for hypoglycemia and monitor FS, Discontinue insulin pump for now and give levemir and lispro. Rest of details is as documented in the [facility] and P which reflects our plan of care
[2017-11-30] MEDS: Furosemide 40 MG/4 ML VIAL IVP SCH (18:46)
[2017-11-30] MEDS: LEVOMEFOLATE CALCIUM PO SCH (18:54)
[2017-11-30] MEDS: B12 PO SCH (18:54)
[2017-11-30] MEDS: B6 PO SCH (18:54)
[2017-11-30] MEDS: Albuterol 2.5 MG/3 ML NEBULIZER IH SCH ×2 (19:42→22:41)
[2017-11-30] MEDS: Budesonide/Formoterol 160/4.5 MDI IH SCH (19:42)
[2017-11-30] MEDS: Insulin LISPRO 300 UNITS/3 ML VIAL SQ SCH (21:32)
[2017-11-30] MEDS: Pregabalin 75 MG CAPSULE PO SCH (21:34)
[2017-11-30] MEDS: Melatonin 3 MG TABLET PO SCH (21:34)
[2017-12-01] MEDS: *HR* Heparin 5,000 UNIT/ML VIAL SQ SCH ×3 (00:04→15:23)
[2017-12-01] MEDS: Albuterol 2.5 MG/3 ML NEBULIZER IH SCH ×5 (04:26→20:06)
[2017-12-01] MEDS: Budesonide/Formoterol 160/4.5 MDI IH SCH ×2 (07:23→20:06)
[2017-12-01 08:54] LABS: Albumin 3.2 g/dL (3.5-5.7); Albumin/Globulin Ratio 1.1 (1.1-2.2); Bilirubin,Total 1.3 mg/dL (0.3-1.0); Calcium 9.6 mg/dL (8.6-10.3); Chol/HDL Ratio 2.6 (0-4.9); Globulin 2.8 g/dL (2.4-3.5); Phosphorous 3.8 mg/dL (2.7-4.5); Potassium 4.8 mEq/L (3.5-5.1)
[2017-12-01] MEDS ORDERED: (Febuxostat [Uloric] 80 MG) PO SCH (09:00)
[2017-12-01 09:17] LABS: Estimated Average Glucose 177 mg/dl; Hemoglobin A1C 7.8 %
[2017-12-01] MEDS: Insulin LISPRO 300 UNITS/3 ML VIAL SQ SCH ×4 (09:35→20:29)
[2017-12-01] MEDS: Furosemide 40 MG/4 ML VIAL IVP SCH ×2 (09:35→17:08)
--- NOTE | 2017-12-01 09:35 | Electrocardiograph Report ---
[facility] Test Date: 2017-11-30 Pat Name: Ashley Feliciano Department: 103 Room: 3A45 Gender: F Boarder Machine: WILSON : [id number] Requested By: Lonnie Cheung Order Number: [id number] Reading MD: Ion Chirinos MD Measurements Intervals [place] Rate: 47 P: -74 HI: 186 QRS: -46 QRSD: 125 T: 66 QT: 461 QTc: 424 Interpretive Statements SINUS BRADYCARDIA LEFT ANTERIOR FASCICULAR BLOCK [QRS AXIS <= -45, QR IN I, RS IN II] WARNING: DATA QUALITY MAY AFFECT INTERPRETATION Electronically Signed On 12-01-2017 9:34:02 EDT by Ion Chirinos MD
[2017-12-01] MEDS: amLODIPine 5 MG TABLET PO SCH (09:38)
[2017-12-01] MEDS: Pregabalin 75 MG CAPSULE PO SCH ×3 (09:38→20:28)
[2017-12-01] MEDS: Lisinopril 20 MG TABLET PO SCH (09:38)
[2017-12-01] MEDS: Metoprolol XL (24 HR) Succ 50 MG TAB.ER.24H PO SCH (09:38)
[2017-12-01] MEDS: FLUoxetine 20 MG CAPSULE PO SCH (09:38)
[2017-12-01] MEDS: *HR* Amiodarone 200 MG TABLET PO SCH (09:39)
[2017-12-01] MEDS: predniSONE 10 MG TABLET PO SCH (09:39)
[2017-12-01] MEDS: Cholecalciferol (D-3) 1,000 UNIT TABLET PO SCH (09:39)
[2017-12-01] MEDS: Aspirin Enteric Coated 81 MG Tablet PO SCH (09:39)
[2017-12-01 09:48] LABS: Basophils % 0.1 %; Eosinophils # 0.1 K/mcL (0.0-0.6); Eosinophils % 1.4 %; Hematocrit 33.5 % (35.3-44.9); Hemoglobin 10.1 g/dL (11.5-15.4); Immature Granulocytes % 0.5 % (0-4); Lymphocytes % 9.8 %; Mean Corpuscular HGB Conc 30.1 g/dL (31.6-35.5); Mean Corpuscular Hemoglobin 26.6 pg (28.0-33.3); Mean Corpuscular Volume 88.4 fL (83.0-100.0); Mean Platelet Volume 12.1 fL (9.4-12.4); Monocytes # 0.6 K/mcL (0.0-1.3); Monocytes % 5.9 %; Neutrophils # 8.3 K/mcL (1.6-8.9); Platelet Count 135 K/mcL (140-400); Red Blood Count 3.79 M/mcL (3.82-4.97); Red Cell Distribution Width 18.9 % (11.5-14.5); Segmented Neutrophils % 82.3 %
[2017-12-01 11:38] LABS: Thyroid Stimulating Hormone 11.042 mcIU/mL (0.340-5.600)
[2017-12-01] MEDS: B6 PO SCH (17:04)
[2017-12-01] MEDS: LEVOMEFOLATE CALCIUM PO SCH (17:04)
[2017-12-01] MEDS: B12 PO SCH (17:04)
[2017-12-01] MEDS: (Febuxostat [Uloric] 80 MG) PO SCH (17:23)
--- NOTE | 2017-12-01 17:30 | Internal Med Progress Note ---
<Bertram Sawyer - Last Filed: 12/01/17 17:57> Date of Encounter: 12/01/17 Time of Encounter: 10:30 - Assessment and plan (1) Diastolic CHF, acute on chronic Current Visit: Yes Status: Acute Assessment and plan: Patient has volume overload. We will diureses with 60 mg Lasix IV twice daily. Monitor ins and outs. Monitor kidney function with the increased diuresis. Patient is on strict fluid restriction. Patient has TSH of 14.5. This may be contributing to her CHF exacerbation as well. (2) Hypothyroidism Current Visit: No Status: Acute Assessment and plan: Patient's TSH is 14.5. We will increase his dose of levothyroxine 250 g daily. Also have ordered a thyroid cascade. Note that patient is currently on amiodarone. Qualifiers: Hypothyroidism type: unspecified Qualified Code(s): E03.9 - Hypothyroidism , unspecified (3) Fluid overload Current Visit: No Status: Acute Qualifiers: Hypervolemia type: other Qualified Code(s): E87.79 - Other fluid overload (4) Morbid obesity with BMI of 50.0-59.9, adult Current Visit: No Status: Chronic Assessment and plan: Patient's morbid obesity complicates all aspects of her care. (5) GI bleed Current Visit: No Status: Acute Assessment and plan: Patient reported bright red stool per rectum. Hemoglobin is stable at this time at 10.1. Patient reports having hemorrhoids. Continue to monitor hemoglobin. Qualifiers: GI bleed type/associated pathology: unspecified gastrointestinal hemorrhage type Qualified Code(s): K92.2 - Gastrointestinal hemorrhage, unspecified (6) Hypoglycemia Current Visit: Yes Status: Acute Assessment and plan: Patient states difficulty with managing her type 2 diabetes mellitus with current insulin regimen ever since her previous hospitalization. Patient had blood glucose levels in the 40s on admission. Glucose is currently under control on our low-dose sliding scale management. (7) Bradycardia Current Visit: Yes Status: Chronic Assessment and plan: Patient was on Toprol 50 XL daily. This dose has been decreased to 25 mg daily. Continue to monitor. (8) HLD (hyperlipidemia) Current Visit: Yes Status: Chronic Qualifiers: Hyperlipidemia type: pure hypercholesterolemia Qualified Code(s): E78.00 - Pure hypercholesterolemia, unspecified; E78.0 - Pure hypercholesterolemia (9) HTN (hypertension) Current Visit: Yes Status: Chronic Assessment and plan: Patient's blood pressure is normal at this time. We will continue to monitor. Patient currently on Norvasc, lisinopril, metoprolol. Metoprolol dose was cut in half, so we will continue to monitor closely. Qualifiers: Hypertension type: essential hypertension Qualified Code(s): I10 - Essential (primary) hypertension (10) History of DVT of lower extremity Current Visit: Yes Status: Resolved Assessment and plan: This is very complicated as patient is prone to DVT. Patient currently is on heparin subcutaneous, but has had GI bleeds in the past. She does report bright red blood per rectum, but this is most likely due to her hemorrhoids. We will continue to monitor. (11) DVT prophylaxis Current Visit: No Status: Acute Assessment and plan: Patient is currently on heparin 5000 subcutaneous every 8 hours. - Subjective Interval history: Patient had no events overnight. States that she has not been urinating too well. States that she has had shortness of breath and weakness the last couple weeks. States that she takes her medications at home as she is supposed to. - Constitutional Vitals: Temp Pulse Resp BP Pulse Ox 98.8 F 61 18 178/70 90 12/01/17 16:08 12/01/17 16:08 12/01/17 16:13 12/01/17 16:08 12/01/17 16:13 General appearance: Present: cooperative, A&O X 3, morbidly obese, pleasant, answers questions appropriately - Neck Neck exam general surgery: Present: normal inspection, supple, trachea midline - Respiratory Respiratory exam: Present: rales (Throughout) - Cardiovascular Cardiovascular exam: Present: irregular rhythm, systolic murmur (3/5 RUSB). Absent: JVD - GI/Abdominal Additional comments: Obese abdomen, soft, nontender. - Extremities Exam Extremities exam: Present: pedal edema (3+ pitting edema bilaterally, areas of erythema on the anterior aspect suggestive of venous stasis) - Neurological Exam Neurological exam: Present: CN II-XII intact, oriented X3 Internal Medicine: Result - Labs CBC & Chem 7: 12/01/17 08:10 12/01/17 08:10 Labs: Short CBC 12/01/17 Range/Units 08:10 WBC 10.1 (4.3-11.1) K/mcL Hgb 10.1 L (11.5-15.4) g/dL Hct 33.5 L (35.3-44.9) % Plt Count 135 L (140-400) K/mcL Neutrophils # 8.3 (1.6-8.9) K/mcL BMP 12/01/17 08:10 Sodium 141 Potassium 4.8 Chloride 103 Carbon Dioxide 32 H BUN 54 H Creatinine 1.18 Glucose 125 H Calcium 9.6 Liver Function 12/01/17 Range/Units 08:10 Total Bilirubin 1.3 H (0.3-1.0) mg/dL AST 75 H (13-39) Units/L ALT 76 H (7-52) Units/L Alkaline Phosphatase 142 H (34-104) Units/L Albumin 3.2 L (3.5-5.7) g/dL Consult Discharge Plan - Plan Referrals: Lang Jarvis DO [Primary Care Provider] - 12/09/17 10:30 am <Fadi Wells - Last Filed: 12/02/17 08:02> Date of Encounter: 12/01/17 - Constitutional Vitals: Temp Pulse Resp BP Pulse Ox 98.2 F 50 22 148/71 96 12/02/17 07:48 12/02/17 07:48 12/02/17 07:48 12/02/17 07:48 12/02/17 07:48 Internal Medicine: Result - Labs CBC & Chem 7: 12/02/17 05:35 12/02/17 07:05 Labs: Short CBC 12/01/17 12/02/17 Range/Units 08:10 05:35 WBC 10.1 7.7 (4.3-11.1) K/mcL Hgb 10.1 L 9.3 L (11.5-15.4) g/dL Hct 33.5 L 30.5 L (35.3-44.9) % Plt Count 135 L 144 (140-400) K/mcL Neutrophils # 8.3 6.1 (1.6-8.9) K/mcL BMP 12/01/17 12/02/17 08:10 07:05 Sodium 141 138 Potassium 4.8 4.8 Chloride 103 101 Carbon Dioxide 32 H 33 H BUN 54 H 57 H Creatinine 1.18 1.28 H Glucose 125 H 242 H Calcium 9.6 9.4 Liver Function 12/01/17 12/02/17 Range/Units 08:10 07:05 Total Bilirubin 1.3 H 1.3 H (0.3-1.0) mg/dL AST 75 H 49 H (13-39) Units/L ALT 76 H 69 H (7-52) Units/L Alkaline Phosphatase 142 H 143 H (34-104) Units/L Albumin 3.2 L 3.2 L (3.5-5.7) g/dL - Attending Attestation This is a late entry note for date of service 12/01/2017 I performed a [id number] diagnostic evaluation of this patient and my medical decision-making was reviewed with the Resident Physician, Dr Bertram Sawyer. I agree with the documented findings, disposition and treatment plan as described except to the extent set forth below. We will increase levothyroxine dose to 150 g daily. On exam the patient is no acute distress. Heart exam reveals regular rate and rhythm. Lungs sounds are diminished. There is 2+ lower extremity pitting edema. Plan: Patient admitted for CHF exacerbation secondary to acute on chronic diastolic heart failure with fluid overload. We will provide therapy with IV Lasix 40 mg twice a day. Strict I's and O's. Fluid restriction. Fadi Wells MD
[2017-12-01] MEDS: Melatonin 3 MG TABLET PO SCH (20:28)
[2017-12-02] MEDS: Albuterol 2.5 MG/3 ML NEBULIZER IH SCH ×7 (00:07→23:29)
[2017-12-02] MEDS: *HR* Heparin 5,000 UNIT/ML VIAL SQ SCH ×3 (00:14→16:26)
[2017-12-02 06:09] LABS: Basophils % 0.1 %; Eosinophils # 0.1 K/mcL (0.0-0.6); Eosinophils % 1.8 %; Hematocrit 30.5 % (35.3-44.9); Hemoglobin 9.3 g/dL (11.5-15.4); Immature Granulocytes % 0.4 % (0-4); Lymphocytes # 0.9 K/mcL (0.6-4.6); Lymphocytes % 11.5 %; Mean Corpuscular HGB Conc 30.5 g/dL (31.6-35.5); Mean Corpuscular Hemoglobin 26.6 pg (28.0-33.3); Mean Corpuscular Volume 87.1 fL (83.0-100.0); Mean Platelet Volume 11.3 fL (9.4-12.4); Monocytes # 0.5 K/mcL (0.0-1.3); Neutrophils # 6.1 K/mcL (1.6-8.9); Platelet Count 144 K/mcL (140-400); Red Cell Distribution Width 18.6 % (11.5-14.5); Segmented Neutrophils % 79.2 %
[2017-12-02 07:34] LABS: Albumin 3.2 g/dL (3.5-5.7); Albumin/Globulin Ratio 1.2 (1.1-2.2); Bilirubin,Total 1.3 mg/dL (0.3-1.0); Calcium 9.4 mg/dL (8.6-10.3); Globulin 2.7 g/dL (2.4-3.5); Potassium 4.8 mEq/L (3.5-5.1); Total Protein 5.9 g/dL (6.4-8.9)
[2017-12-02] MEDS: Budesonide/Formoterol 160/4.5 MDI IH SCH ×2 (07:58→20:21)
[2017-12-02] MEDS: Furosemide 40 MG/4 ML VIAL IVP SCH ×2 (08:21→16:26)
[2017-12-02] MEDS: Insulin LISPRO 300 UNITS/3 ML VIAL SQ SCH ×4 (08:21→20:55)
[2017-12-02] MEDS: Lisinopril 20 MG TABLET PO SCH (08:22)
[2017-12-02] MEDS: predniSONE 10 MG TABLET PO SCH (08:22)
[2017-12-02] MEDS: FLUoxetine 20 MG CAPSULE PO SCH (08:22)
[2017-12-02] MEDS: amLODIPine 5 MG TABLET PO SCH (08:22)
[2017-12-02] MEDS: Metoprolol XL (24 HR) Succ 50 MG TAB.ER.24H PO SCH (08:22)
[2017-12-02] MEDS: Pregabalin 75 MG CAPSULE PO SCH ×3 (08:23→20:48)
[2017-12-02] MEDS: *HR* Amiodarone 200 MG TABLET PO SCH (08:23)
[2017-12-02] MEDS: Aspirin Enteric Coated 81 MG Tablet PO SCH (08:23)
[2017-12-02] MEDS: Cholecalciferol (D-3) 1,000 UNIT TABLET PO SCH (08:23)
[2017-12-02] MEDS: (Febuxostat [Uloric] 80 MG) PO SCH (08:24)
--- NOTE | 2017-12-02 15:19 | Internal Med Progress Note ---
<Bertram Sawyer - Last Filed: 12/02/17 15:16> Date of Encounter: 12/02/17 Time of Encounter: 15:16 - Assessment and plan (1) Diastolic CHF, acute on chronic Current Visit: Yes Status: Acute Assessment and plan: Patient has volume overload. Patient states that she is currently urinating well with this 60 mg IV Lasix twice daily. Creatinine function is stable at this time. We will continue diuresis. Patient is starting to return to her baseline. Continue to monitor ins and outs. Continue fluid restriction. (2) Fluid overload Current Visit: No Status: Acute Assessment and plan: See above Qualifiers: Hypervolemia type: other Qualified Code(s): E87.79 - Other fluid overload (3) Anemia Current Visit: Yes Status: Acute Assessment and plan: Hemoglobin now 9.3. We will continue to monitor as mentioned above. Qualifiers: Anemia type: unspecified type Qualified Code(s): D64.9 - Anemia, unspecified (4) Hypothyroidism Current Visit: No Status: Acute Assessment and plan: Patient is on 150 g of levothyroxine at this time. Thyroid cascade panel revealed elevated TSH of 14.5 but normal free T4. Qualifiers: Hypothyroidism type: unspecified Qualified Code(s): E03.9 - Hypothyroidism , unspecified (5) Morbid obesity with BMI of 50.0-59.9, adult Current Visit: No Status: Chronic Assessment and plan: Patient's morbid obesity complicates all aspects of her care. (6) GI bleed Current Visit: No Status: Acute Assessment and plan: Patient does report bright red blood per rectum. Hemoglobin has dropped from 10.1 to 9.3. We will recheck hemoglobin tomorrow as volume status has been up and down. If hemoglobin is low, we will consult gastroenterology. Patient is currently on heparin for DVT prophylaxis as she has had DVT in the past and is at high risk. Qualifiers: GI bleed type/associated pathology: unspecified gastrointestinal hemorrhage type Qualified Code(s): K92.2 - Gastrointestinal hemorrhage, unspecified (7) Hypoglycemia Current Visit: Yes Status: Acute Assessment and plan: Blood glucose is rising. We will step up her insulin management. (8) Bradycardia Current Visit: Yes Status: Chronic Assessment and plan: Heart rate has been in the 60s and 50s. Toprol-XL was reduced yesterday to 25 mg once daily. Continue current medication (9) HLD (hyperlipidemia) Current Visit: Yes Status: Chronic Assessment and plan: 20 mg of atorvastatin daily. Qualifiers: Hyperlipidemia type: pure hypercholesterolemia Qualified Code(s): E78.00 - Pure hypercholesterolemia, unspecified; E78.0 - Pure hypercholesterolemia (10) HTN (hypertension) Current Visit: Yes Status: Chronic Assessment and plan: Patient's blood pressure is normal at this time. We will continue to monitor. Patient currently on Norvasc, lisinopril, metoprolol. Metoprolol dose was cut in half, so we will continue to monitor closely. Qualifiers: Hypertension type: essential hypertension Qualified Code(s): I10 - Essential (primary) hypertension (11) History of DVT of lower extremity Current Visit: Yes Status: Resolved Assessment and plan: This is very complicated as patient is prone to DVT. Patient currently is on heparin subcutaneous, but has had GI bleeds in the past. She does report bright red blood per rectum, but this is most likely due to her hemorrhoids. We will continue to monitor. (12) DVT prophylaxis Current Visit: No Status: Acute - Subjective Interval history: Patient had no events overnight. States that she has been urinating too well. States that her shortness of breath has improved significantly. When she walks from the bathroom to her bed, she desaturates to the upper 80s. States that she tends to do this at home as well. - Constitutional Vitals: Temp Pulse Resp BP Pulse Ox 98.4 F 52 20 151/56 96 12/02/17 10:40 12/02/17 10:40 12/02/17 11:41 12/02/17 10:40 12/02/17 11:41 General appearance: Present: cooperative, A&O X 3, morbidly obese, pleasant, answers questions appropriately - Head Head exam: Present: atraumatic, normal inspection - ENT ENT exam: Present: mucous membranes moist - Neck Neck exam general surgery: Present: supple, trachea midline - Respiratory Respiratory exam: Present: rales (Mild diffuse). Absent: respiratory distress - Cardiovascular Cardiovascular exam: Present: systolic murmur (3/5 at the RUSB.) - GI/Abdominal GI/Abdominal exam: Present: soft. Absent: firm, guarding, rebound - Extremities Exam Extremities exam: Present: pedal edema (3+ pitting bilaterally) Internal Medicine: Result - Labs CBC & Chem 7: 12/02/17 05:35 12/02/17 07:05 Labs: Short CBC 12/02/17 Range/Units 05:35 WBC 7.7 (4.3-11.1) K/mcL Hgb 9.3 L (11.5-15.4) g/dL Hct 30.5 L (35.3-44.9) % Plt Count 144 (140-400) K/mcL Neutrophils # 6.1 (1.6-8.9) K/mcL BMP 12/02/17 07:05 Sodium 138 Potassium 4.8 Chloride 101 Carbon Dioxide 33 H BUN 57 H Creatinine 1.28 H Glucose 242 H Calcium 9.4 Liver Function 12/02/17 Range/Units 07:05 Total Bilirubin 1.3 H (0.3-1.0) mg/dL AST 49 H (13-39) Units/L ALT 69 H (7-52) Units/L Alkaline Phosphatase 143 H (34-104) Units/L Albumin 3.2 L (3.5-5.7) g/dL Consult Discharge Plan - Plan Referrals: Lang Jarvis DO [Primary Care Provider] - 12/09/17 10:30 am <Fadi Wells - Last Filed: 12/02/17 18:55> Date of Encounter: 12/02/17 - Constitutional Vitals: Temp Pulse Resp BP Pulse Ox 98.9 F 55 20 171/75 94 12/02/17 15:31 12/02/17 15:31 12/02/17 16:10 12/02/17 15:31 12/02/17 16:10 Internal Medicine: Result - Labs CBC & Chem 7: 12/02/17 05:35 12/02/17 07:05 Labs: Short CBC 12/02/17 Range/Units 05:35 WBC 7.7 (4.3-11.1) K/mcL Hgb 9.3 L (11.5-15.4) g/dL Hct 30.5 L (35.3-44.9) % Plt Count 144 (140-400) K/mcL Neutrophils # 6.1 (1.6-8.9) K/mcL BMP 12/02/17 07:05 Sodium 138 Potassium 4.8 Chloride 101 Carbon Dioxide 33 H BUN 57 H Creatinine 1.28 H Glucose 242 H Calcium 9.4 Liver Function 12/02/17 Range/Units 07:05 Total Bilirubin 1.3 H (0.3-1.0) mg/dL AST 49 H (13-39) Units/L ALT 69 H (7-52) Units/L Alkaline Phosphatase 143 H (34-104) Units/L Albumin 3.2 L (3.5-5.7) g/dL - Attending Attestation I performed a [id number] diagnostic evaluation of this patient and my medical decision-making was reviewed with the Resident Physician, Dr Bertram Sawyer. I agree with the documented findings, disposition and treatment plan as described except to the extent set forth below. Patient reports improvement in her shortness of breath. On exam she still has 2+ lower extremity pitting edema Plan: Continue with IV Lasix. Strict I's and O's. Monitor kidney function daily. Fadi Wells MD
[2017-12-02] MEDS: B12 PO SCH (17:34)
[2017-12-02] MEDS: B6 PO SCH (17:34)
[2017-12-02] MEDS: LEVOMEFOLATE CALCIUM PO SCH (17:34)
[2017-12-02] MEDS: Melatonin 3 MG TABLET PO SCH (20:48)
[2017-12-03] MEDS: *HR* Heparin 5,000 UNIT/ML VIAL SQ SCH ×2 (00:10→09:19)
[2017-12-03] MEDS: Albuterol 2.5 MG/3 ML NEBULIZER IH SCH ×3 (04:24→11:40)
[2017-12-03 05:46] LABS: Eosinophils # 0.1 K/mcL (0.0-0.6); Hematocrit 31.2 % (35.3-44.9); Hemoglobin 9.5 g/dL (11.5-15.4); Immature Granulocytes % 0.6 % (0-4); Lymphocytes % 13.9 %; Mean Corpuscular HGB Conc 30.4 g/dL (31.6-35.5); Mean Corpuscular Hemoglobin 27.2 pg (28.0-33.3); Mean Corpuscular Volume 89.4 fL (83.0-100.0); Mean Platelet Volume 11.3 fL (9.4-12.4); Monocytes # 0.4 K/mcL (0.0-1.3); Monocytes % 6.1 %; Neutrophils # 5.5 K/mcL (1.6-8.9); Platelet Count 140 K/mcL (140-400); Red Blood Count 3.49 M/mcL (3.82-4.97); Red Cell Distribution Width 18.5 % (11.5-14.5); Segmented Neutrophils % 77.4 %
[2017-12-03 06:59] LABS: Albumin 3.3 g/dL (3.5-5.7); Albumin/Globulin Ratio 1.2 (1.1-2.2); Bilirubin,Total 1.2 mg/dL (0.3-1.0); Calcium 9.4 mg/dL (8.6-10.3); Globulin 2.7 g/dL (2.4-3.5); Potassium 4.8 mEq/L (3.5-5.1)
[2017-12-03] MEDS: Budesonide/Formoterol 160/4.5 MDI IH SCH (07:36)
[2017-12-03] MEDS: predniSONE 10 MG TABLET PO SCH (09:18)
[2017-12-03] MEDS: amLODIPine 5 MG TABLET PO SCH (09:18)
[2017-12-03] MEDS: FLUoxetine 20 MG CAPSULE PO SCH (09:19)
[2017-12-03] MEDS: Cholecalciferol (D-3) 1,000 UNIT TABLET PO SCH (09:19)
[2017-12-03] MEDS: Lisinopril 20 MG TABLET PO SCH (09:19)
[2017-12-03] MEDS: *HR* Amiodarone 200 MG TABLET PO SCH (09:19)
[2017-12-03] MEDS: Aspirin Enteric Coated 81 MG Tablet PO SCH (09:19)
[2017-12-03] MEDS: Metoprolol XL (24 HR) Succ 50 MG TAB.ER.24H PO SCH (09:19)
[2017-12-03] MEDS: Furosemide 40 MG/4 ML VIAL IVP SCH (09:20)
[2017-12-03] MEDS: Insulin LISPRO 300 UNITS/3 ML VIAL SQ SCH ×2 (09:21→12:19)
[2017-12-03] MEDS: Pregabalin 75 MG CAPSULE PO SCH (09:22)
[2017-12-03] MEDS: (Febuxostat [Uloric] 80 MG) PO SCH (09:23)
--- NOTE | 2017-12-03 11:25 | Discharge Summary ---
<Bertram Sawyer - Last Filed: 12/03/17 16:25> Date of Encounter: 12/03/17 Time of Encounter: 11:24 - Discharge Diagnosis (1) Diastolic CHF, acute on chronic Priority: Primary Status: Acute (2) Fluid overload Priority: Primary Status: Acute Qualifiers: Hypervolemia type: other Qualified Code(s): E87.79 - Other fluid overload (3) Anemia Priority: Secondary Status: Acute Qualifiers: Anemia type: unspecified type Qualified Code(s): D64.9 - Anemia, unspecified (4) Hypothyroidism Priority: Secondary Status: Acute Qualifiers: Hypothyroidism type: unspecified Qualified Code(s): E03.9 - Hypothyroidism , unspecified (5) Morbid obesity with BMI of 50.0-59.9, adult Priority: Secondary Status: Chronic (6) GI bleed Priority: Secondary Status: Acute Qualifiers: GI bleed type/associated pathology: unspecified gastrointestinal hemorrhage type Qualified Code(s): K92.2 - Gastrointestinal hemorrhage, unspecified (7) Hypoglycemia Priority: Secondary Status: Acute (8) Bradycardia Priority: Secondary Status: Chronic (9) HLD (hyperlipidemia) Priority: Secondary Status: Chronic Qualifiers: Hyperlipidemia type: pure hypercholesterolemia Qualified Code(s): E78.00 - Pure hypercholesterolemia, unspecified; E78.0 - Pure hypercholesterolemia (10) HTN (hypertension) Priority: Primary Status: Chronic Qualifiers: Hypertension type: essential hypertension Qualified Code(s): I10 - Essential (primary) hypertension (11) History of DVT of lower extremity Priority: Secondary Status: Resolved (12) Stage 2 chronic kidney disease Priority: Primary Status: Acute Hospital course: Ms. Feliciano is a 62 year old female with past medical history of morbid obesity, hypothyroidism, pulmonary embolism, DVT, GI bleed, chronic kidney disease, anemia, type 2 diabetes mellitus. Patient presented to the emergency department after having increased weakness and increased shortness of breath. Clinically, patient was volume overloaded. She had 3+ pitting pedal edema and lungs revealed rales on clinical exam Chest x-ray revealed mild vascular congestion. Patient was bradycardic here. Patient was on 50 mg Toprol-XL. This was reduced to 25 mg. Patient had a TSH of 14.5. We increased her levothyroxine to 150 g every morning. During her stay, we diuresed the patient using 60 mg IV Lasix twice daily. The patient diuresed well with the addition of this. Today, patient states she is ready to go home. Her creatinine was stable after all of Lasix administration. Her pitting edema was reduced significantly. Patient states that she was able to walk around and was at her baseline shortness of breath. Patient has home health at home. We have also ensured close follow-up as she is supposed to see her primary care provider in 3 days. We have also given patient hydrocortisone ointment for her hemorrhoids. Patient was given strict return precautions back to the emergency department. Patient was hemodynamically stable and not in any acute distress at time of discharge. Patient had returned to baseline. Chest X-Ray 11/30/17 11:11 IMPRESSION: Findings suggesting mild vascular congestion with slightly improved right pleural effusion and associated airspace opacity, which may reflect atelectasis, but underlying pneumonia is not excluded. Continued imaging follow-up to include dedicated two view chest x-ray when patient can tolerate is recommended. D/ / Bubba Isabel / Bubba Isabel Interpreting Provider: Bubba Isabel Gallbladder Ultrasound 11/30/17 13:12 IMPRESSION: Cholelithiasis without specific sonographic evidence of acute cholecystitis. No intrahepatic biliary ductal dilatation. D/ / Sabas Flowers MD / Sabas Flowers MD Interpreting Provider: Sabas Flowers MD - Time Spent with Patient Total time spent providing and/or coordinating discharge services: - Discharge Medications Prescriptions: Hydrocortisone [Anusol-Hc] 30 gm RC BID #1 cream..g. Levothyroxine [Synthroid] 150 mcg PO QAM #30 tablet Metoprolol Succinate [Toprol Xl] 25 mg PO QDPC #30 tab.er.24h Home Medications: Albuterol Neb [Proventil Neb] 2.5 mg IH Q4H 02/07/16 [History] Albuterol Sulfate [Proventil Hfa] 2 puff IH Q4H PRN 02/07/16 [History] Pregabalin [Lyrica] 75 mg PO TID 02/07/16 [History] Melatonin 10 mg PO HS #30 capsule 02/11/16 [Rx] B12/Levomefolate Calcium/B-6 [Foltx Tablet] 1 tab PO QPM 02/29/16 [History] Budesonide/Formoterol 160/4.5 [Symbicort 160/4.5] 2 puff IH BIDR 30 Days inhaler 03/03/16 [Rx] Cholecalciferol (Vitamin D3) [Dialyvite Vitamin D] 5,000 unit PO QAM 03/27/16 [ History] Omeprazole 40 mg PO QPM 03/27/16 [History] Amiodarone [Cordarone] 200 mg PO DAILY #30 tablet 04/11/16 [Rx] Acetaminophen [Tylenol] 500 mg PO Q6HR PRN 06/12/16 [History] Oxygen 4 l NS AD 06/12/16 [History] Febuxostat [Uloric] 80 mg PO DAILY 09/10/16 [History] Lisinopril [Zestril] 40 mg PO DAILY #30 tablet 10/16/16 [Rx] amLODIPine [Norvasc] 10 mg PO DAILY #30 tablet 10/16/16 [Rx] Atorvastatin Calcium [Lipitor] 20 mg PO HS 01/02/17 [History] Docusate [Colace] 100 mg PO BID PRN #60 capsule 01/03/17 [Rx] Aspirin [Lo-Dose Aspirin EC] 81 mg PO DAILY 11/09/17 [History] FLUoxetine HCl [Prozac] 20 mg PO DAILY 11/09/17 [History] Montelukast [Singulair] 10 mg PO DAILY 11/09/17 [History] Furosemide [Lasix] 40 mg PO BID 11/30/17 [History] Subcutaneous Insulin Pump [T:Slim] 1 each MC AD 11/30/17 [History] predniSONE [Prednisone] See Taper PO DAILY 11/30/17 [History] Hydrocortisone [Anusol-Hc] 30 gm RC BID #1 cream..g. 12/03/17 [Rx] Levothyroxine [Synthroid] 150 mcg PO QAM #30 tablet 12/03/17 [Rx] Metoprolol Succinate [Toprol Xl] 25 mg PO QDPC #30 tab.er.24h 12/03/17 [Rx] Allergies/Adverse Reactions: 3 Allergy/AdvReac Type Severity Reaction Status Date / Time ciprofloxacin [From Cipro] Allergy Severe Anaphylaxis Verified 11/30/17 10:59 clarithromycin [From Biaxin] Allergy Severe Hives Verified 11/30/17 10:59 clonidine Allergy Severe Anaphylaxis Verified 11/30/17 10:59 levofloxacin [From Levaquin] Allergy Severe Anaphylaxis Verified 11/30/17 10:59 Warfarin Allergy Severe Difficulty Verified 11/30/17 10:59 Breathing Cefaclor Allergy Anaphylaxis Verified 11/30/17 10:59 codeine Allergy Rash Verified 11/30/17 10:59 Hydralazine Allergy Hives Verified 11/30/17 10:59 sulfamethoxazole Allergy Hives Verified 11/30/17 10:59 [From Bactrim] trimethoprim [From Bactrim] Allergy Hives Verified 11/30/17 10:59 tiotropium AdvReac Severe Blurry Verified 11/30/17 10:59 [From Spiriva with Vision HandiHaler] acarbose AdvReac Blurry Verified 11/30/17 10:59 Vision atorvastatin [From Lipitor] AdvReac Muscle Pain Verified 11/30/17 10:59 fenofibrate [From Tricor] AdvReac Muscle Pain Verified 11/30/17 10:59 rivaroxaban [From Xarelto] AdvReac Gastrointestinal Verified 11/30/17 10:59 Upset Date of admission: 11/30/17 16:50 Primary care physician: Lang Jarvis DO Consults: 11/30/17 19:04 Consult to Pastoral Services [CONS] Routine Comment: - Constitutional Vitals: Temp Pulse Resp BP Pulse Ox 98 F 66 20 165/64 95 12/03/17 07:00 12/03/17 07:00 12/03/17 07:36 12/03/17 07:00 12/03/17 07:36 General appearance: Present: cooperative, A&O X 3, morbidly obese, pleasant, answers questions appropriately Exam: Obese 62-year-old female not in any acute distress - Head Head exam: Present: atraumatic, normal inspection - ENT ENT exam: Present: normal exam - Neck Neck exam general surgery: Present: supple, trachea midline - Respiratory Respiratory exam: Present: CTAB. Absent: rales - Cardiovascular Cardiovascular exam: Present: systolic murmur - Extremities Exam Extremities exam: Present: pedal edema (2+ bilaterally, improved from yesterday) - Neurological Exam Neurological exam: Present: CN II-XII intact, oriented X3 - Patient Status Disposition: Hospice - Home Condition: Good Overall status at discharge: patient is progressing back to baseline - Discharge Instructions Instructions: Heart Failure, Chocolate Dipper (GEN) Follow Up With: Lang Jarvis DO [Primary Care Provider] - Additional Instructions: Follow-up with your primary care provider within the next 3 days. Tell them about her hospital visit with volume overload and that your heart rate was slow so we decreased your metoprolol. Also, follow-up on your high blood pressure. Take 80 mg of Lasix twice daily for the next 3 days. Then continue 40 mg of Lasix twice daily. Your dose of Metoprolol XL is now 25 mg once daily. Your dose of levothyroxine is 150 g every morning. Weigh yourself daily and follow current plan for when you have more fluid on board as prescribed your primary care provider. Return to the emergency department if you have any worsening of your current symptoms or if you develop any new symptoms - Diet and Activity Activity: increase activity as tolerated Diet: diabetic diet <Fadi Wells - Last Filed: 12/03/17 20:01> Date of Encounter: 12/03/17 Hospital course: Ms. Feliciano is a 62 year old female - Time Spent with Patient Total time spent providing and/or coordinating discharge services: Date of admission: 11/30/17 16:50 Primary care physician: Lang Jarvis DO Consults: 11/30/17 19:04 Consult to Pastoral Services [CONS] Routine Comment: - Constitutional Vitals: Temp Pulse Resp BP Pulse Ox 97.4 F L 55 20 174/71 96 12/03/17 11:00 12/03/17 11:00 12/03/17 11:41 12/03/17 11:00 12/03/17 11:41 - Attending Attestation I performed a [id number] diagnostic evaluation of this patient and my medical decision-making was reviewed with the Resident Physician, Dr Bertram Sawyer. I agree with the documented findings, disposition and treatment plan as described except to the extent set forth below. Patient reports improvement in her shortness of breath and lower extremity edema. Physical exam: Gen: NAD, AAOx3 Heart: RRR, S1S2, no murmurs Lungs: Diminished breath sounds throughout Abdomen: S, NT, + bowel sounds Plan: Continue with Lasix 80 mg twice a day for 3 days then follow-up with PCP. Monitor daily weight at home. Resume home hospice. Medically clear for discharge home. Fadi Wells MD
[2017-12-03 11:55] VITALS: BP 174/71
== END 2017-12-03 15:49 | disposition hospice, home (50) | DRG 291 ==
LOC: EMEROO 10:57 → 3ANU 10:57 → SUATTDRO 16:50 → 3ANU 18:12
PROVIDERS: ADMIT Hospitalist; ATTEND Internal Medicine

== ENCOUNTER 2018-05-11 14:22 | Inpatient (IN) ==
[2018-05-11] MEDS ORDERED: predniSONE 20 MG TABLET PO ONE (14:30)
[2018-05-11] MEDS ORDERED: Ipratropium/Albuterol Neb 3 ML IH ONE (14:30)
[2018-05-11 15:16] LABS: Basophils % 0.3 %; Eosinophils # 0.7 K/mcL (0.0-0.6); Eosinophils % 8.8 %; Hematocrit 32.3 % (35.3-44.9); Hemoglobin 9.8 g/dL (11.5-15.4); Immature Granulocytes % 0.4 % (0-4); Lymphocytes # 1.3 K/mcL (0.6-4.6); Lymphocytes % 15.9 %; Mean Corpuscular HGB Conc 30.3 g/dL (31.6-35.5); Mean Corpuscular Hemoglobin 27.4 pg (28.0-33.3); Mean Corpuscular Volume 90.2 fL (83.0-100.0); Monocytes # 0.6 K/mcL (0.0-1.3); Monocytes % 7.9 %; Neutrophils # 5.3 K/mcL (1.6-8.9); Platelet Count 193 K/mcL (140-400); Red Blood Count 3.58 M/mcL (3.82-4.97); Red Cell Distribution Width 16.5 % (11.5-14.5); Segmented Neutrophils % 66.7 %
[2018-05-11 15:34] LABS: BUN/Creatinine Ratio 28 (6-26); Blood Urea Nitrogen 38 mg/dL (8-23); Carbon Dioxide 33 mEq/L (23-29); Chloride 100 mEq/L (98-107); Glucose 55 mg/dL (70-105); Potassium 4.2 mEq/L (3.5-5.1); Sodium 136 mEq/L (136-145); eGFR For Non-African Americans 39 (> 60)
[2018-05-11 15:35] LABS: Calcium 9.1 mg/dL (8.6-10.3); Osmolality,Calculated 289 (280-300); Troponin I < 0.03 ng/mL (< 0.04)
[2018-05-11] MEDS ORDERED: Furosemide 40 MG/4 ML VIAL IVP ONE (15:47)
--- NOTE | 2018-05-11 15:50 | Emergency Department Note ---
Disposition Clinical Impression: Pulmonary edema, SOB (shortness of breath) Disposition: Admitted As Inpatient Referrals: Lang Jarvis DO [Primary Care Provider] - General Adult HPI - General Chief complaint: ED Shortness of Breath/Dyspnea Stated complaint: AJAY Time Seen by Provider: 05/11/18 14:25 Source: patient, EMS Limitations: no limitations - History of Present Illness Pain Scale: 0 - Related Data Home Medications Medication Instructions Recorded Confirmed Albuterol Neb [Proventil Neb] 2.5 mg IH Q4H 02/07/16 11/30/17 Albuterol Sulfate [Proventil Hfa] 2 puff IH Q4H PRN 02/07/16 11/30/17 Pregabalin [Lyrica] 75 mg PO TID 02/07/16 11/30/17 B12/Levomefolate Calcium/B-6 1 tab PO QPM 02/29/16 11/30/17 [Foltx Tablet] Cholecalciferol (Vitamin D3) 5,000 unit PO QAM 03/27/16 11/30/17 [Dialyvite Vitamin D] Omeprazole 40 mg PO QPM 03/27/16 11/30/17 Acetaminophen [Tylenol] 500 mg PO Q6HR PRN 06/12/16 11/30/17 Oxygen 4 l NS AD 06/12/16 11/30/17 Febuxostat [Uloric] 80 mg PO DAILY 09/10/16 11/30/17 Atorvastatin Calcium [Lipitor] 20 mg PO HS 01/02/17 11/30/17 Aspirin [Lo-Dose Aspirin EC] 81 mg PO DAILY 11/09/17 11/30/17 FLUoxetine HCl [Prozac] 20 mg PO DAILY 11/09/17 11/30/17 Montelukast [Singulair] 10 mg PO DAILY 11/09/17 11/30/17 Furosemide [Lasix] 40 mg PO BID 11/30/17 11/30/17 Subcutaneous Insulin Pump [T:Slim] 1 each MC AD 11/30/17 11/30/17 predniSONE [Prednisone] See Taper PO DAILY 11/30/17 11/30/17 Previous Rx's Medication Instructions Recorded Melatonin 10 mg PO HS #30 capsule 02/11/16 Budesonide/Formoterol 160/4.5 2 puff IH BIDR 30 Days inhaler 03/03/16 [Symbicort 160/4.5] Amiodarone [Cordarone] 200 mg PO DAILY #30 tablet 04/11/16 Lisinopril [Zestril] 40 mg PO DAILY #30 tablet 10/16/16 amLODIPine [Norvasc] 10 mg PO DAILY #30 tablet 10/16/16 Docusate [Colace] 100 mg PO BID PRN #60 capsule 01/03/17 Hydrocortisone [Anusol-Hc] 30 gm RC BID #1 cream..g. 12/03/17 Levothyroxine [Synthroid] 150 mcg PO QAM #30 tablet 12/03/17 Metoprolol Succinate [Toprol Xl] 25 mg PO QDPC #30 tab.er.24h 12/03/17 Allergies Allergy/AdvReac Type Severity Reaction Status Date / Time ciprofloxacin [From Cipro] Allergy Severe Anaphylaxis Verified 11/30/17 10:59 clarithromycin [From Biaxin] Allergy Severe Hives Verified 11/30/17 10:59 clonidine Allergy Severe Anaphylaxis Verified 11/30/17 10:59 levofloxacin [From Levaquin] Allergy Severe Anaphylaxis Verified 11/30/17 10:59 Warfarin Allergy Severe Difficulty Verified 11/30/17 10:59 Breathing Cefaclor Allergy Anaphylaxis Verified 11/30/17 10:59 codeine Allergy Rash Verified 11/30/17 10:59 Hydralazine Allergy Hives Verified 11/30/17 10:59 sulfamethoxazole Allergy Hives Verified 11/30/17 10:59 [From Bactrim] trimethoprim [From Bactrim] Allergy Hives Verified 11/30/17 10:59 tiotropium AdvReac Severe Blurry Verified 11/30/17 10:59 [From Spiriva with Vision HandiHaler] acarbose AdvReac Blurry Verified 11/30/17 10:59 Vision atorvastatin [From Lipitor] AdvReac Muscle Pain Verified 11/30/17 10:59 fenofibrate [From Tricor] AdvReac Muscle Pain Verified 11/30/17 10:59 rivaroxaban [From Xarelto] AdvReac Gastrointestinal Verified 11/30/17 10:59 Upset Past Medical History - Past Medical History Medical history: Reports: atrial fibrillation, CHF, COPD, coronary artery disease, DVT, diabetes, GI bleed, hyperlipidemia, hypertension, myocardial infarction, renal disease, thyroid disease Surgical history: Reports: angioplasty/stent, other Psychiatric history: Reports: anxiety, depression [employer] history: Reports: no [employer] history - Social History Smoking Status: Former smoker Smokeless Tobacco Status: No Alcohol use: Reports: none Drug use: Reports: none Physical Exam - General Limitations: no limitations General appearance: alert Course Vital Signs Temperature 97.7 F 05/11/18 14:29 Pulse Rate 55 05/11/18 14:29 Respiratory Rate 16 05/11/18 14:29 Blood Pressure 179/78 05/11/18 14:29 O2 Sat by Pulse Oximetry 97 05/11/18 14:29 Temperature 97.7 F 05/11/18 14:29 Pulse Rate 57 05/11/18 15:04 Respiratory Rate 18 05/11/18 15:11 Blood Pressure 177/59 05/11/18 15:04 O2 Sat by Pulse Oximetry 100 05/11/18 15:11 Oxygen Delivery Oxygen Delivery Nasal Cannula Medical Decision Making - Lab Data Result diagrams: 05/11/18 15:02 05/11/18 15:02 Lab Results 05/11/18 05/11/18 05/11/18 Range/Units 15:02 15:02 15:02 WBC 8.0 (4.3-11.1) K/mcL RBC 3.58 L (3.82-4.97) M/mcL Hgb 9.8 L (11.5-15.4) g/dL Hct 32.3 L (35.3-44.9) % MCV 90.2 (83.0-100.0) fL MCH 27.4 L (28.0-33.3) pg MCHC 30.3 L (31.6-35.5) g/dL RDW 16.5 H (11.5-14.5) % Plt Count 193 (140-400) K/mcL MPV 11.0 (9.4-12.4) fL Immature Gran % 0.4 (0-4) % Seg Neutrophils % 66.7 % Lymphocytes % 15.9 % Monocytes % 7.9 % Eosinophils % 8.8 % Basophils % 0.3 % Neutrophils # 5.3 (1.6-8.9) K/mcL Lymphocytes # 1.3 (0.6-4.6) K/mcL Monocytes # 0.6 (0.0-1.3) K/mcL Eosinophils # 0.7 H (0.0-0.6) K/mcL Basophils # 0.0 (0.0-0.2) K/mcL Sodium 136 (136-145) mEq/L Potassium 4.2 (3.5-5.1) mEq/L Chloride 100 (98-107) mEq/L Carbon Dioxide 33 H (23-29) mEq/L BUN 38 H (8-23) mg/dL Creatinine 1.36 H (0.60-1.20) mg/dL Est GFR ( Amer) 48 L (> 60) Est GFR (Non-Af Amer) 39 L (> 60) BUN/Creatinine Ratio 28 H (6-26) Glucose 55 L (70-105) mg/dL Calculated Osmolality 289 (280-300) Lactic Acid 1.2 (0.5-2.2) mmol/L Calcium 9.1 (8.6-10.3) mg/dL Troponin I < 0.03 (< 0.04) ng/mL B-Natriuretic Peptide (Less than 100) pg/mL 05/11/18 Range/Units 15:02 WBC (4.3-11.1) K/mcL RBC (3.82-4.97) M/mcL Hgb (11.5-15.4) g/dL Hct (35.3-44.9) % MCV (83.0-100.0) fL MCH (28.0-33.3) pg MCHC (31.6-35.5) g/dL RDW (11.5-14.5) % Plt Count (140-400) K/mcL MPV (9.4-12.4) fL Immature Gran % (0-4) % Seg Neutrophils % % Lymphocytes % % Monocytes % % Eosinophils % % Basophils % % Neutrophils # (1.6-8.9) K/mcL Lymphocytes # (0.6-4.6) K/mcL Monocytes # (0.0-1.3) K/mcL Eosinophils # (0.0-0.6) K/mcL Basophils # (0.0-0.2) K/mcL Sodium (136-145) mEq/L Potassium (3.5-5.1) mEq/L Chloride (98-107) mEq/L Carbon Dioxide (23-29) mEq/L BUN (8-23) mg/dL Creatinine (0.60-1.20) mg/dL Est GFR ( Amer) (> 60) Est GFR (Non-Af Amer) (> 60) BUN/Creatinine Ratio (6-26) Glucose (70-105) mg/dL Calculated Osmolality (280-300) Lactic Acid (0.5-2.2) mmol/L Calcium (8.6-10.3) mg/dL Troponin I (< 0.04) ng/mL B-Natriuretic Peptide 590 H (Less than 100) pg/mL Attestation Statement - Attestation Attestation: I examined this patient and my medical decision-making was reviewed with the Resident Physician. I agree with the documented findings, disposition and treatment plan as described except to the extent set forth below. 62-year-old female presents to the ER for increasing dyspnea. She also admits to a 6 pound weight gain in the past 3 days. Admits lower extremity edema is worsening. History of CHF. History of one cardiac stent. Follows with Dr. Atkins. She also has a history of COPD and wears chronic home oxygen. She does not smoke. She had a remote history of smoking. Patient's chest x-ray shows pulmonary edema with a large right-sided pleural effusion. Patient is on home Lasix. We have ordered 40 mg IV Lasix here in the ER. She was given DuoNeb treatments 3. Troponin was negative but a elevation of her BNP. admit
--- NOTE | 2018-05-11 15:54 | Emergency Department Note ---
Disposition Clinical Impression: SOB (shortness of breath) Pulmonary edema Qualifiers: Chronicity: acute Qualified Code(s): J81.0 - Acute pulmonary edema CHF (congestive heart failure) Qualifiers: Heart failure type: unspecified Heart failure chronicity: acute on chronic Qualified Code(s): I50.9 - Heart failure, unspecified Disposition: Admitted As Inpatient Condition: Good Referrals: Lang Jarvis DO [Primary Care Provider] - Forms: ED Satisfaction Letter General Adult HPI - General Chief complaint: ED Shortness of Breath/Dyspnea Stated complaint: AJAY Time Seen by Provider: 05/11/18 14:25 Source: patient, EMS Mode of arrival: EMS Limitations: no limitations Nursing Notes Reviewed: Yes Vital Signs Reviewed: Yes - History of Present Illness HPI Narrative: 62-year-old female with complex past medical history including COPD, CHF, diabetes and atrial fibrillation presenting to the emergency department chief complaint of shortness of breath. Patient states over the past 1-2 weeks she has had increased shortness of breath and needing 3.5 L of oxygen at home. She states she becomes very dyspneic when she tries to exert herself. Denies any chest pain or fevers. She discloses a weight gain of approximately 6 pounds and bilateral lower extremity swelling. Patient states she was recently treated with outpatient antibiotics for cellulitis. Patient states she has had a productive cough for the past week and produces a [place] sputum. According to EMS when they arrived at the home patient was hypoxic in the mid 80s she had just completed a breathing treatment. In the EMS a another breathing treatment was completed with moderate response and oxygen saturation around 90%. Pain Scale: 0 - Related Data Home Medications Medication Instructions Recorded Confirmed Albuterol Neb [Proventil Neb] 2.5 mg IH Q4H 02/07/16 11/30/17 Albuterol Sulfate [Proventil Hfa] 2 puff IH Q4H PRN 02/07/16 11/30/17 Pregabalin [Lyrica] 75 mg PO TID 02/07/16 11/30/17 B12/Levomefolate Calcium/B-6 1 tab PO QPM 02/29/16 11/30/17 [Foltx Tablet] Cholecalciferol (Vitamin D3) 5,000 unit PO QAM 03/27/16 11/30/17 [Dialyvite Vitamin D] Omeprazole 40 mg PO QPM 03/27/16 11/30/17 Acetaminophen [Tylenol] 500 mg PO Q6HR PRN 06/12/16 11/30/17 Oxygen 4 l NS AD 06/12/16 11/30/17 Febuxostat [Uloric] 80 mg PO DAILY 09/10/16 11/30/17 Atorvastatin Calcium [Lipitor] 20 mg PO HS 01/02/17 11/30/17 Aspirin [Lo-Dose Aspirin EC] 81 mg PO DAILY 11/09/17 11/30/17 FLUoxetine HCl [Prozac] 20 mg PO DAILY 11/09/17 11/30/17 Montelukast [Singulair] 10 mg PO DAILY 11/09/17 11/30/17 Furosemide [Lasix] 40 mg PO BID 11/30/17 11/30/17 Subcutaneous Insulin Pump [T:Slim] 1 each MC AD 11/30/17 11/30/17 Previous Rx's Medication Instructions Recorded Melatonin 10 mg PO HS #30 capsule 02/11/16 Budesonide/Formoterol 160/4.5 2 puff IH BIDR 30 Days inhaler 03/03/16 [Symbicort 160/4.5] Amiodarone [Cordarone] 200 mg PO DAILY #30 tablet 04/11/16 Lisinopril [Zestril] 40 mg PO DAILY #30 tablet 10/16/16 amLODIPine [Norvasc] 10 mg PO DAILY #30 tablet 10/16/16 Docusate [Colace] 100 mg PO BID PRN #60 capsule 01/03/17 Hydrocortisone [Anusol-Hc] 30 gm RC BID #1 cream..g. 12/03/17 Levothyroxine [Synthroid] 150 mcg PO QAM #30 tablet 12/03/17 Metoprolol Succinate [Toprol Xl] 25 mg PO QDPC #30 tab.er.24h 12/03/17 Allergies Allergy/AdvReac Type Severity Reaction Status Date / Time ciprofloxacin [From Cipro] Allergy Severe Anaphylaxis Verified 11/30/17 10:59 clarithromycin [From Biaxin] Allergy Severe Hives Verified 11/30/17 10:59 clonidine Allergy Severe Anaphylaxis Verified 11/30/17 10:59 levofloxacin [From Levaquin] Allergy Severe Anaphylaxis Verified 11/30/17 10:59 Warfarin Allergy Severe Difficulty Verified 11/30/17 10:59 Breathing Cefaclor Allergy Anaphylaxis Verified 11/30/17 10:59 codeine Allergy Rash Verified 11/30/17 10:59 Hydralazine Allergy Hives Verified 11/30/17 10:59 sulfamethoxazole Allergy Hives Verified 11/30/17 10:59 [From Bactrim] trimethoprim [From Bactrim] Allergy Hives Verified 11/30/17 10:59 tiotropium AdvReac Severe Blurry Verified 11/30/17 10:59 [From Spiriva with Vision HandiHaler] acarbose AdvReac Blurry Verified 11/30/17 10:59 Vision atorvastatin [From Lipitor] AdvReac Muscle Pain Verified 11/30/17 10:59 fenofibrate [From Tricor] AdvReac Muscle Pain Verified 11/30/17 10:59 rivaroxaban [From Xarelto] AdvReac Gastrointestinal Verified 11/30/17 10:59 Upset All systems ED: reviewed and negative except as stated. Constitutional: Reports: weight change. Denies: fever, weakness Eyes: Reports: as per HPI ENT ED: Reports: as per HPI Cardiovascular: Reports: dyspnea on exertion. Denies: chest pain, palpitations Respiratory: Reports: cough, dyspnea, sputum production. Denies: hemoptysis, stridor Gastrointestinal: Denies: abdominal pain, nausea, vomiting Genitourinary: Reports: as per HPI Musculoskeletal: Reports: as per HPI Integumentary: Reports: as per HPI Neurological: Denies: weakness, numbness, paresthesias Psychiatric: Reports: as per HPI Endocrine: Reports: as per HPI Hematological/Lymphatic: Reports: as per HPI Allergic/Immunologic: Reports: as per HPI Past Medical History - Past Medical History Attestation: Yes The following information was validated with the patient. Medical history: Reports: atrial fibrillation, CHF, COPD, coronary artery disease, DVT, diabetes, GI bleed, hyperlipidemia, hypertension, myocardial infarction, renal disease, thyroid disease Surgical history: Reports: angioplasty/stent, other Psychiatric history: Reports: anxiety, depression [employer] history: Reports: no [employer] history - Social History Smoking Status: Former smoker Smokeless Tobacco Status: No Alcohol use: Reports: none Drug use: Reports: none Physical Exam - General Limitations: no limitations General appearance: alert, in no apparent distress - Head Head exam: atraumatic, normocephalic, normal inspection - Eye Eye exam: Present: normal appearance. Absent: scleral icterus, conjunctival injection - ENT ENT exam: normal exam, mucous membranes moist - Neck Neck exam: Present: normal inspection, full ROM. Absent: tenderness, meningismus - Chest Chest inspection: Present: normal inspection, symmetric chest wall rise. Absent : tenderness, rash - Respiratory Respiratory exam: Present: other (Decreased breath sounds throughout). Absent: respiratory distress, accessory muscle use - Cardiovascular Cardiovascular exam: Present: regular rate, normal rhythm, normal heart sounds - Abdominal Exam Abdominal exam: Present: soft, Non-Tender. Absent: distention, guarding, rebound - Extremities Exam Extremities exam: Present: full ROM, other (Bilateral lower extremity edema) - Neurological Exam Neurological exam: Present: alert, oriented X3 - Psychiatric Psychiatric exam: Present: normal affect, normal mood - Skin Skin exam: Present: warm, intact Course Course Narrative: 62-year-old female presenting with shortness of breath. Concern for CHF exacerbation versus COPD exacerbation. Patient is alert and oriented 3 in room stable vital signs. We will obtain basic laboratory analysis including CBC , BMP, troponin, EKG, chest x-ray and BNP. Disposition most likely admission the pending results. Patient agrees with this plan. - Reevaluation(s) Reevaluation #1: Patient's laboratory analysis shows chronic anemia, elevated BNP of greater than 500. Chest x-ray shows pulmonary edema with moderate right pleural effusion. We will provide the patient with 40 mg of IV Lasix. At this time due to patient's increased oxygen needs we will plan to admit the patient for CHF exacerbation. Patient is alert and oriented times [facility] stable vital signs. Patient agrees with this plan. I spoke with hospitalist tank car reconditioner Dr. Boggs who agrees to accept the patient at this time. Vital Signs Temperature 97.7 F 05/11/18 14:29 Pulse Rate 55 05/11/18 14:29 Respiratory Rate 16 05/11/18 14:29 Blood Pressure 179/78 05/11/18 14:29 O2 Sat by Pulse Oximetry 97 05/11/18 14:29 Temperature 97.7 F 05/11/18 14:29 Pulse Rate 57 05/11/18 15:04 Respiratory Rate 18 05/11/18 15:11 Blood Pressure 177/59 05/11/18 15:04 O2 Sat by Pulse Oximetry 100 05/11/18 15:11 Oxygen Delivery Oxygen Delivery Nasal Cannula Medical Decision Making - Lab Data Result diagrams: 05/11/18 15:02 05/11/18 15:02 Lab Results 05/11/18 05/11/18 05/11/18 Range/Units 15:02 15:02 15:02 WBC 8.0 (4.3-11.1) K/mcL RBC 3.58 L (3.82-4.97) M/mcL Hgb 9.8 L (11.5-15.4) g/dL Hct 32.3 L (35.3-44.9) % MCV 90.2 (83.0-100.0) fL MCH 27.4 L (28.0-33.3) pg MCHC 30.3 L (31.6-35.5) g/dL RDW 16.5 H (11.5-14.5) % Plt Count 193 (140-400) K/mcL MPV 11.0 (9.4-12.4) fL Immature Gran % 0.4 (0-4) % Seg Neutrophils % 66.7 % Lymphocytes % 15.9 % Monocytes % 7.9 % Eosinophils % 8.8 % Basophils % 0.3 % Neutrophils # 5.3 (1.6-8.9) K/mcL Lymphocytes # 1.3 (0.6-4.6) K/mcL Monocytes # 0.6 (0.0-1.3) K/mcL Eosinophils # 0.7 H (0.0-0.6) K/mcL Basophils # 0.0 (0.0-0.2) K/mcL Sodium 136 (136-145) mEq/L Potassium 4.2 (3.5-5.1) mEq/L Chloride 100 (98-107) mEq/L Carbon Dioxide 33 H (23-29) mEq/L BUN 38 H (8-23) mg/dL Creatinine 1.36 H (0.60-1.20) mg/dL Est GFR ( Amer) 48 L (> 60) Est GFR (Non-Af Amer) 39 L (> 60) BUN/Creatinine Ratio 28 H (6-26) Glucose 55 L (70-105) mg/dL Calculated Osmolality 289 (280-300) Lactic Acid 1.2 (0.5-2.2) mmol/L Calcium 9.1 (8.6-10.3) mg/dL Troponin I < 0.03 (< 0.04) ng/mL B-Natriuretic Peptide (Less than 100) pg/mL 05/11/18 Range/Units 15:02 WBC (4.3-11.1) K/mcL RBC (3.82-4.97) M/mcL Hgb (11.5-15.4) g/dL Hct (35.3-44.9) % MCV (83.0-100.0) fL MCH (28.0-33.3) pg MCHC (31.6-35.5) g/dL RDW (11.5-14.5) % Plt Count (140-400) K/mcL MPV (9.4-12.4) fL Immature Gran % (0-4) % Seg Neutrophils % % Lymphocytes % % Monocytes % % Eosinophils % % Basophils % % Neutrophils # (1.6-8.9) K/mcL Lymphocytes # (0.6-4.6) K/mcL Monocytes # (0.0-1.3) K/mcL Eosinophils # (0.0-0.6) K/mcL Basophils # (0.0-0.2) K/mcL Sodium (136-145) mEq/L Potassium (3.5-5.1) mEq/L Chloride (98-107) mEq/L Carbon Dioxide (23-29) mEq/L BUN (8-23) mg/dL Creatinine (0.60-1.20) mg/dL Est GFR ( Amer) (> 60) Est GFR (Non-Af Amer) (> 60) BUN/Creatinine Ratio (6-26) Glucose (70-105) mg/dL Calculated Osmolality (280-300) Lactic Acid (0.5-2.2) mmol/L Calcium (8.6-10.3) mg/dL Troponin I (< 0.04) ng/mL B-Natriuretic Peptide 590 H (Less than 100) pg/mL - EKG Data EKG #1 EKG attestation: Yes I reviewed and interpreted this EKG. EKG results narrative: Junctional rhythm. 64 beats for minute. QRS 129, QTC 472. No sign of acute ST segment elevation or ischemia. Compared to previous EKG completed on 2017 no significant changes noted.
[2018-05-11] MEDS ORDERED: Naloxone 0.4 MG/ML INJ IVP PRN (16:58)
--- NOTE | 2018-05-11 17:14 | Internal Med History&Physical ---
Date of Encounter: 05/11/18 Time of Encounter: 17:10 Internal Medicine - H&P: HPI Chief complaint: shortness of breath History of present illness: Ms. Feliciano is a 62 year old female with history of hypertension, diabetes, hyperlipidemia, coronary artery disease with stenting 2 last in 2017, chronic diastolic CHF, paroxysmal A. fib, CK-MB, hypothyroidism, COPD, OLIVER, history of DVT not on anticoagulation due to GI bleed, [place] and morbid obesity came in with complaint of shortness of breath. Symptoms started about 2-3 weeks ago. Over the past 3 days however it has become significantly worse which made the patient come to ER. Patient has noticed increased leg swelling over the past year however he has been more over the past few weeks. Reports around 5-6 pounds of weight gain or past 2 weeks. Her baseline weight is around the 25 pounds. She had echocardiogram in the October this year with EF of 55-60% and moderate diastolic dysfunction. She uses oxygen at home 3 L with ambulation. She was having trouble ambulating even with oxygen. She denies any chest pain or fever. She does report some chills and palpitations. She also has a mostly dry cough but occasionally brings out greenish sputum minimal. She was recently treated with 5 day course of Invanz for possible lung infection as per patient. She was also treated for cellulitis with doxycycline for 2 weeks. She denies any recent changes in her diet. She has been taking her medications regularly. She does mention that she drinks a lot of water because she like drinking water. Denies any constipation, diarrhea or abdominal pain. She denies any urinary incontinence or difficulty passing urine. She does mention that she was told occasionally she does not completely empty her bladder. Currently she is at home with hospice. helps with daily activities with the aid coming at home for 3 days a week. She is more or less bedbound with the ambulation of less than 25 feet. CODE STATUS discussed and patient wanted to be full code in the hospital Past Med Surg Social Fam HX - Past Medical History Medical history: atrial fibrillation, CHF, COPD, coronary artery disease, DVT, diabetes, GI bleed, hyperlipidemia, hypertension, myocardial infarction, renal disease, thyroid disease Additional medical history: hemrhoids,gout Psychiatric history: anxiety, depression - Past Surgical History Surgical History: angioplasty/stent, other Additional surgical history: 1 cardiac stents. right leg procedure for DVT - Social History Smoking Status: Former smoker Smokeless Tobacco Status: No Alcohol use: none Drug use: none Activity Level: Bed bound - Family History Mother Family Member Ethnicity: Non- Living Status: Still Living Hx Family Cardiac Disorders: Yes Hx Family Endocrine Disorder: Yes (DM) Hx Family Neurologic Disorders: Yes (Dementia) Brother Family Member Ethnicity: Non- Living Status: Hx Family Cancer: Yes (colon cancer) Son Family Member Ethnicity: Non- Living Status: Still Living Hx Family GI Disorders: Yes (high grade dysplasia polyps) Father Adopted: No Family Member Ethnicity: Non- Living Status: Hx Family Cardiac Disorders: Yes (heart attack) Hx Family Respiratory Disorders: Yes (breathing issues) Hx Family Cancer: No Hx Family GI Disorders: No Hx Family Endocrine Disorder: No Hx Family Neuromuscular Disorders: No Hx Family Neurologic Disorders: No Hx Family HEENT Disorders: No Hx Family Autoimmune Disorders: No Internal Medicine - H&P: Meds Albuterol Neb [Proventil Neb] 2.5 mg IH Q4H 02/07/16 [History] Albuterol Sulfate [Proventil Hfa] 2 puff IH Q4H PRN 02/07/16 [History] Pregabalin [Lyrica] 75 mg PO TID 02/07/16 [History] Melatonin 10 mg PO HS #30 capsule 02/11/16 [Rx] B12/Levomefolate Calcium/B-6 [Foltx Tablet] 1 tab PO QPM 02/29/16 [History] Budesonide/Formoterol 160/4.5 [Symbicort 160/4.5] 2 puff IH BIDR 30 Days inhaler 03/03/16 [Rx] Cholecalciferol (Vitamin D3) [Dialyvite Vitamin D] 5,000 unit PO QAM 03/27/16 [ History] Omeprazole 40 mg PO QPM 03/27/16 [History] Amiodarone [Cordarone] 200 mg PO DAILY #30 tablet 04/11/16 [Rx] Acetaminophen [Tylenol] 500 mg PO Q6HR PRN 06/12/16 [History] Oxygen 4 l NS AD 06/12/16 [History] Febuxostat [Uloric] 80 mg PO DAILY 09/10/16 [History] Lisinopril [Zestril] 40 mg PO DAILY #30 tablet 10/16/16 [Rx] amLODIPine [Norvasc] 10 mg PO DAILY #30 tablet 10/16/16 [Rx] Atorvastatin Calcium [Lipitor] 20 mg PO HS 01/02/17 [History] Docusate [Colace] 100 mg PO BID PRN #60 capsule 01/03/17 [Rx] Aspirin [Lo-Dose Aspirin EC] 81 mg PO DAILY 11/09/17 [History] FLUoxetine HCl [Prozac] 20 mg PO DAILY 11/09/17 [History] Montelukast [Singulair] 10 mg PO DAILY 11/09/17 [History] Furosemide [Lasix] 40 mg PO BID 11/30/17 [History] Subcutaneous Insulin Pump [T:Slim] 1 each MC AD 11/30/17 [History] Hydrocortisone [Anusol-Hc] 30 gm RC BID #1 cream..g. 12/03/17 [Rx] Levothyroxine [Synthroid] 150 mcg PO QAM #30 tablet 12/03/17 [Rx] Metoprolol Succinate [Toprol Xl] 25 mg PO QDPC #30 tab.er.24h 12/03/17 [Rx] 3 Allergy/AdvReac Type Severity Reaction Status Date / Time ciprofloxacin [From Cipro] Allergy Severe Anaphylaxis Verified 11/30/17 10:59 clarithromycin [From Biaxin] Allergy Severe Hives Verified 11/30/17 10:59 clonidine Allergy Severe Anaphylaxis Verified 11/30/17 10:59 levofloxacin [From Levaquin] Allergy Severe Anaphylaxis Verified 11/30/17 10:59 Warfarin Allergy Severe Difficulty Verified 11/30/17 10:59 Breathing Cefaclor Allergy Anaphylaxis Verified 11/30/17 10:59 codeine Allergy Rash Verified 11/30/17 10:59 Ertapenem [From Invanz] Allergy Rash Verified 05/11/18 17:21 Hydralazine Allergy Hives Verified 11/30/17 10:59 sulfamethoxazole Allergy Hives Verified 11/30/17 10:59 [From Bactrim] trimethoprim [From Bactrim] Allergy Hives Verified 11/30/17 10:59 tiotropium AdvReac Severe Blurry Verified 11/30/17 10:59 [From Spiriva with Vision HandiHaler] acarbose AdvReac Blurry Verified 11/30/17 10:59 Vision atorvastatin [From Lipitor] AdvReac Muscle Pain Verified 11/30/17 10:59 fenofibrate [From Tricor] AdvReac Muscle Pain Verified 11/30/17 10:59 rivaroxaban [From Xarelto] AdvReac Gastrointestinal Verified 11/30/17 10:59 Upset All Systems PM: A 10-system review of systems was performed and is negative for pertinent findings except as documented above in the HPI. - Constitutional Vitals: Temp Pulse Resp BP Pulse Ox 97.7 F 60 18 157/47 92 05/11/18 14:29 05/11/18 16:20 05/11/18 16:20 05/11/18 16:20 05/11/18 16:20 General appearance: Present: mild distress, A&O X 3, morbidly obese, answers questions appropriately Exam: Const: Vital signs listed above. Morbidly Obese, Mild acute distress. Alert and oriented Xs 3. Eyes: Sclera white, conjunctiva clear, lids are without lag. PERRLA. Pupils and irises are equal and round without defect. ENT: TMs intact and clear, normal canals, grossly normal hearing. Oropharanx clear and moist without erythema. Gums pink, good dentition. Lymph/Neck: No masses, thyromegaly, or abnormal cervical notes. No bruit. Tracheal midline. Cardio: RRR, Normal S1, S2. soft early systolic murmurs. no rubs or gallops. Skin warm and dry. 2+ peripheral edema. Respiratory: Chest symmetrical, respirations somewhat labored. Difficult auscultation given habitus. CTA. Decreased Air entry on Rt lung filed. Non- tender to palpitation. Musculo: No deformity or scoliosis noted. No hawa gait disturbance noted. Pulses normal in all 4 extremities. Rivera wrap bandage on both LE Neurologic: No focal deficits, cranial nerves II-XII grossly intact with normal sensation, reflexes, coordination, muscle strength and tone. GI/Abdomen: Soft, non tender, non distended, Obese, no hepatosplemomegaly appreciated, normal bowel sounds, no masses noted. Pysch: Anxious affect, good insight Skin: Erythema over LE, no ulceration. Internal Med - H&P Results - Labs CBC & Chem 7: 05/11/18 15:02 05/11/18 15:02 - Assessment and plan (1) CHF (congestive heart failure) Current Visit: Yes Status: Chronic Assessment and plan: - Chest x-ray with the congestion and effusion. BNP 590. Significant pedal edema. - Most likely her symptoms are due to acute exacerbation of CHF. - Current continue IV diuresing with Lasix 40 twice a day. Monitor labs. Strict I's and O's. Fluid restriction to 1 L per day. Salt restriction diet. - Moderate effusion in the right hemithorax may need tapping if no significant improvement from diuresing for symptomatic relief - Unlikely that symptoms are due to pneumonia given recent treatment with broad- spectrum antibiotics. Also no leukocytosis, tachycardia or fevers. Will reconsider if no improvement on diuresing Qualifiers: Heart failure type: unspecified Heart failure chronicity: acute on chronic Qualified Code(s): I50.9 - Heart failure, unspecified (2) Anemia Current Visit: No Status: Acute Assessment and plan: - At baseline likely from CKD - We will monitor Qualifiers: Anemia type: iron deficiency Iron deficiency anemia type: chronic blood loss Qualified Code(s): D50.0 - Iron deficiency anemia secondary to blood loss (chronic) (3) Chronic kidney disease Current Visit: No Status: Acute Assessment and plan: - At baseline - No indication of SILVERWARE WASHER - Monitor for now Qualifiers: Chronic kidney disease stage: stage 3 (moderate) Qualified Code(s): N18.3 - Chronic kidney disease, stage 3 (moderate) (4) CAD (coronary artery disease) Current Visit: No Status: Chronic Assessment and plan: - Troponin negative. Without chest pain. - Continue home aspirin, atorvastatin, metoprolol Qualifiers: Coronary Disease-Associated Artery/Lesion type: [place] artery [place] vs. transplanted heart: [place] heart Associated angina: without angina Qualified Code(s): I25.10 - Atherosclerotic heart disease of [place] coronary artery without angina pectoris (5) COPD (chronic obstructive pulmonary disease) Current Visit: No Status: Chronic Assessment and plan: - Continue home Symbicort - Scheduled and When necessary albuterol nebulizer Qualifiers: COPD type: unspecified COPD Qualified Code(s): J44.9 - Chronic obstructive pulmonary disease, unspecified (6) DM (diabetes mellitus), type 2 Current Visit: No Status: Chronic Assessment and plan: - Hold insulin pump. - Keep patient on 15 units of Levemir and 5 units pre-meal. Accu-Cheks before meals at bedtime Qualifiers: Diabetes mellitus terminal carman insulin use: with terminal carman use Diabetes mellitus complication status: with kidney complications Diabetes mellitus complication detail: with chronic kidney disease Chronic kidney disease stage : stage 3 (moderate) Qualified Code(s): E11.22 - Type 2 diabetes mellitus with diabetic chronic kidney disease; N18.3 - Chronic kidney disease, stage 3 ( moderate); N18.3 - Chronic kidney disease, stage 3 (moderate); Z79.4 - snf (current) use of insulin; Z79.4 - intermediate teacher (current) use of insulin; Z79.4 - intermediate teacher (current) use of insulin; Z79.4 - snf (current) use of insulin (7) HLD (hyperlipidemia) Current Visit: No Status: Chronic Assessment and plan: Continue home atorvastatin Qualifiers: Hyperlipidemia type: pure hypercholesterolemia Qualified Code(s): E78.00 - Pure hypercholesterolemia, unspecified; E78.0 - Pure hypercholesterolemia (8) HTN (hypertension) Current Visit: No Status: Chronic Assessment and plan: Continue home lisinopril and amlodipine Qualifiers: Hypertension type: essential hypertension Qualified Code(s): I10 - Essential (primary) hypertension (9) Hypothyroidism Current Visit: No Status: Chronic Assessment and plan: Continue home levothyroxine 150 g Qualifiers: Hypothyroidism type: unspecified Qualified Code(s): E03.9 - Hypothyroidism , unspecified (10) OLIVER (obstructive sleep apnea) Current Visit: No Status: Chronic Assessment and plan: Continue home BiPAP overnight (11) Paroxysmal a-fib Current Visit: No Status: Chronic Assessment and plan: Rate controlled with metoprolol succinate 25mg and amiodarone. We will continue it - Not on anticoagulation due to GI bleed (12) DVT prophylaxis Current Visit: No Status: Acute Assessment and plan: Heparin subcutaneous (13) Depression Current Visit: Yes Status: Acute Assessment and plan: Continue home fluoxetine and pregabalin Qualifiers: Qualified Code(s): F32.9 - Major depressive disorder, single episode, unspecified - Time Spent With Patient Total time spent is greater than 50% in coordination of care (as documented) at patient's floor/unit and/or counseling patient:
[2018-05-11] MEDS ORDERED: NON-FORMULARY MEDICATION 1 EACH EACH (Oxygen [Oxygen] 4 L) NS SCH (17:15)
[2018-05-11] MEDS: Pregabalin 75 MG CAPSULE PO SCH (21:10)
[2018-05-11] MEDS: Insulin DETEMIR 100 UNIT/ML X5UNITS SQ SCH (21:11)
[2018-05-11] MEDS: Melatonin 3 MG TABLET PO SCH (21:11)
[2018-05-11] MEDS: B12 PO SCH (21:12)
[2018-05-11] MEDS: LEVOMEFOLATE CALCIUM PO SCH (21:12)
[2018-05-11] MEDS: B6 PO SCH (21:12)
[2018-05-11] MEDS: *HR* Heparin 5,000 UNIT/ML VIAL SQ SCH (22:24)
[2018-05-11] MEDS: Hydrocortisone Rectal 2.5% CRM 28 GM TUBE RC SCH (22:25)
[2018-05-11] MEDS: Albuterol 2.5 MG/3 ML NEBULIZER IH SCH (22:54)
[2018-05-11] MEDS: Budesonide/Formoterol 160/4.5 1 PUFF INH IH SCH (22:54)
[2018-05-12] MEDS: Albuterol 2.5 MG/3 ML NEBULIZER IH SCH ×4 (04:04→21:29)
[2018-05-12 07:57] LABS: Calcium 8.9 mg/dL (8.6-10.3); Potassium 5.7 mEq/L (3.5-5.1)
[2018-05-12] MEDS: FLUoxetine 20 MG CAPSULE PO SCH (08:25)
[2018-05-12] MEDS: amLODIPine 5 MG TABLET PO SCH (08:25)
[2018-05-12] MEDS: Aspirin Enteric Coated 81 MG Tablet PO SCH (08:25)
[2018-05-12] MEDS: Pregabalin 75 MG CAPSULE PO SCH ×3 (08:25→21:19)
[2018-05-12] MEDS: Metoprolol XL (24 HR) Succ 25 MG TAB.ER.24H PO SCH (08:25)
[2018-05-12] MEDS: *HR* Amiodarone 200 MG TABLET PO SCH (08:25)
[2018-05-12] MEDS: Cholecalciferol (D-3) 1,000 UNIT TABLET PO SCH (08:25)
[2018-05-12] MEDS: *HR* Heparin 5,000 UNIT/ML VIAL SQ SCH ×3 (08:26→23:14)
[2018-05-12] MEDS: Furosemide 40 MG/4 ML VIAL IVP SCH ×2 (08:26→17:16)
[2018-05-12] MEDS: Lisinopril 20 MG TABLET PO SCH (08:26)
[2018-05-12] MEDS: (Febuxostat [Uloric] 80 MG) PO SCH (10:19)
[2018-05-12] MEDS: Insulin LISPRO 300 UNITS/3 ML VIAL SQ SCH ×4 (10:19→13:52)
[2018-05-12] MEDS: Hydrocortisone Rectal 2.5% CRM 28 GM TUBE RC SCH ×2 (10:26→21:20)
[2018-05-12] MEDS: Budesonide/Formoterol 160/4.5 1 PUFF INH IH SCH ×2 (11:17→21:29)
--- NOTE | 2018-05-12 11:30 | Internal Med Progress Note ---
Hospitalist Progress Note - Encounter Date of Encounter: 05/12/18 Time of Encounter: 11:28 - Subjective Interval History: Patient seen and examined this morning. Breathing improving. Still short of breath. No fever, chills or diarrhea. Good urine output. - Exam Vitals: Temp Pulse Resp BP Pulse Ox 97.6 F 51 18 156/60 95 05/12/18 07:11 05/12/18 07:11 05/12/18 11:18 05/12/18 07:11 05/12/18 11:18 Exam: Const: Vital signs listed above. Morbidly Obese, Mild acute distress. Alert and oriented Xs 3. Eyes: Sclera white, conjunctiva clear, lids are without lag. PERRLA. Pupils and irises are equal and round without defect. ENT: TMs intact and clear, normal canals, grossly normal hearing. Oropharanx clear and moist without erythema. Gums pink, good dentition. Lymph/Neck: No masses, thyromegaly, or abnormal cervical notes. No bruit. Tracheal midline. Cardio: RRR, Normal S1, S2. soft early systolic murmurs. no rubs or gallops. Skin warm and dry. 2+ peripheral edema. Respiratory: Chest symmetrical, respirations somewhat labored. Difficult auscultation given habitus. CTA. Decreased Air entry on Rt lung filed. Musculo: No deformity or scoliosis noted. No hawa gait disturbance noted. Pulses normal in all 4 extremities. Rivera wrap bandage on both LE Neurologic: No focal deficits, cranial nerves II-XII grossly intact with normal sensation, reflexes, coordination, muscle strength and tone. GI/Abdomen: Soft, non tender, non distended, Obese, no hepatosplemomegaly appreciated, normal bowel sounds, no masses noted. Pysch: good insight Skin:no ulceration or rash noticed. - Assessment and Plan (1) CHF (congestive heart failure) Current Visit: Yes Status: Chronic (2) Anemia Current Visit: No Status: Acute (3) Chronic kidney disease Current Visit: No Status: Acute (4) CAD (coronary artery disease) Current Visit: No Status: Chronic (5) COPD (chronic obstructive pulmonary disease) Current Visit: No Status: Chronic (6) DM (diabetes mellitus), type 2 Current Visit: No Status: Chronic (7) HLD (hyperlipidemia) Current Visit: No Status: Chronic (8) HTN (hypertension) Current Visit: No Status: Chronic (9) Hypothyroidism Current Visit: No Status: Chronic (10) OLIVER (obstructive sleep apnea) Current Visit: No Status: Chronic (11) Paroxysmal a-fib Current Visit: No Status: Chronic (12) DVT prophylaxis Current Visit: No Status: Acute (13) Depression Current Visit: Yes Status: Acute - Summary of Assessment and Plan Summary of Assessment and Plan: CHF (congestive heart failure) - Diuresing well. - Most likely her symptoms are due to acute exacerbation of CHF. - continue IV diuresing with Lasix 40 twice a day. Monitor labs. Strict I's and O's. -1.2 L, 4 kg wt loss. c/w Fluid restriction to 1 L per day. Salt restriction diet. - Moderate effusion in the right hemithorax may need tapping if no significant improvement from diuresing for symptomatic relief - Unlikely that symptoms are due to pneumonia given recent treatment with broad- spectrum antibiotics. Also no leukocytosis, tachycardia or fevers. Will reconsider if no improvement on diuresing Hyperkalemia - likely lab error. She is being diuresed. Will monitor for now. Anemia - At baseline likely from CKD - We will monitor Chronic kidney disease - At baseline - No indication of EMPLOYMENT SERVICES DIRECTOR - Monitor for now CAD (coronary artery disease) - Troponin negative. Without chest pain. - Continue home aspirin, atorvastatin, metoprolol COPD (chronic obstructive pulmonary disease) - Continue home Symbicort - Scheduled and When necessary albuterol nebulizer DM (diabetes mellitus), type 2 - Hold insulin pump. Hypoglycemic yesterday. Now resolved - Keep patient on 15 units of Levemir and 5 units pre-meal. Accu-Cheks before meals at bedtime HLD (hyperlipidemia) - Continue home atorvastatin HTN (hypertension) - Continue home lisinopril and amlodipine Hypothyroidism -Continue home levothyroxine 150 g OLIVER (obstructive sleep apnea) -Continue home BiPAP overnight Paroxysmal a-fib - Rate controlled with metoprolol succinate 25mg and amiodarone. We will continue it - Not on anticoagulation due to GI bleed Depression - Continue home fluoxetine and pregabalin DVT prophylaxis -Heparin subcutaneous - Time Spent with Patient Total time spent is greater than 50% in coordination of care (as documented) at patient's floor/unit and/or counseling patient: Internal Medicine: Result - Labs CBC & Chem 7: 09/05/18 15:02 05/12/18 04:19 Labs: BMP 05/12/18 04:19 Sodium 135 L Potassium 5.7 H D Chloride 100 Carbon Dioxide 23 BUN 40 H Creatinine 1.30 H Glucose 281 H Calcium 8.9 Consult Discharge Plan - Plan Referrals: Lang Jarvis DO [Primary Care Provider] - (1) CHF (congestive heart failure) Qualifiers: Heart failure type: unspecified Heart failure chronicity: acute on chronic Qualified Code(s): I50.9 - Heart failure, unspecified (2) Anemia Qualifiers: Anemia type: iron deficiency Iron deficiency anemia type: chronic blood loss Qualified Code(s): D50.0 - Iron deficiency anemia secondary to blood loss ( chronic) (3) Chronic kidney disease Qualifiers: Chronic kidney disease stage: stage 3 (moderate) Qualified Code(s): N18.3 - Chronic kidney disease, stage 3 (moderate) (4) CAD (coronary artery disease) Qualifiers: Coronary Disease-Associated Artery/Lesion type: [place] artery [place] vs. transplanted heart: [place] heart Associated angina: without angina Qualified Code(s): I25.10 - Atherosclerotic heart disease of [place] coronary artery without angina pectoris (5) COPD (chronic obstructive pulmonary disease) Qualifiers: COPD type: unspecified COPD Qualified Code(s): J44.9 - Chronic obstructive pulmonary disease, unspecified (6) DM (diabetes mellitus), type 2 Qualifiers: Diabetes mellitus exterminator helper insulin use: with prison use Diabetes mellitus complication status: with kidney complications Diabetes mellitus complication detail: with chronic kidney disease Chronic kidney disease stage: stage 3 (moderate) Qualified Code(s): E11.22 - Type 2 diabetes mellitus with diabetic chronic kidney disease; N18.3 - Chronic kidney disease, stage 3 ( moderate); Z79.4 - terminal clerk (current) use of insulin (7) HLD (hyperlipidemia) Qualifiers: Hyperlipidemia type: pure hypercholesterolemia Qualified Code(s): E78.00 - Pure hypercholesterolemia, unspecified; E78.0 - Pure hypercholesterolemia (8) HTN (hypertension) Qualifiers: Hypertension type: essential hypertension Qualified Code(s): I10 - Essential (primary) hypertension (9) Hypothyroidism Qualifiers: Hypothyroidism type: unspecified Qualified Code(s): E03.9 - Hypothyroidism, unspecified
[2018-05-12] MEDS ORDERED: Dextrose Gel 15 GM/37.5 ML TUBE PO PRN ×2 (14:20)
[2018-05-12] MEDS ORDERED: D5% in Water 1,000 ML IVC PRN (14:20)
[2018-05-12] MEDS ORDERED: *HR* Dextrose 50 % in Water (Syg) 50 ML SYRINGE IVP PRN (14:20)
[2018-05-12] MEDS: Subcutaneous Insulin Pump [T:Slim] 1 EACH MC SCH (15:28)
[2018-05-12] MEDS: B12 PO SCH (17:54)
[2018-05-12] MEDS: B6 PO SCH (17:54)
[2018-05-12] MEDS: LEVOMEFOLATE CALCIUM PO SCH (17:54)
[2018-05-12] MEDS: Melatonin 3 MG TABLET PO SCH (21:18)
[2018-05-12] MEDS: Insulin DETEMIR 100 UNIT/ML X5UNITS SQ SCH (21:20)
[2018-05-13] MEDS: Albuterol 2.5 MG/3 ML NEBULIZER IH SCH ×4 (04:01→21:59)
[2018-05-13 08:04] LABS: Basophils % 0.4 %; Eosinophils # 0.8 K/mcL (0.0-0.6); Eosinophils % 8.7 %; Hematocrit 30.8 % (35.3-44.9); Hemoglobin 9.4 g/dL (11.5-15.4); Immature Granulocytes % 0.5 % (0-4); Lymphocytes # 1.3 K/mcL (0.6-4.6); Lymphocytes % 14.4 %; Mean Corpuscular HGB Conc 30.5 g/dL (31.6-35.5); Mean Corpuscular Hemoglobin 27.4 pg (28.0-33.3); Mean Corpuscular Volume 89.8 fL (83.0-100.0); Mean Platelet Volume 11.4 fL (9.4-12.4); Monocytes # 0.6 K/mcL (0.0-1.3); Monocytes % 6.8 %; Neutrophils # 6.4 K/mcL (1.6-8.9); Platelet Count 210 K/mcL (140-400); Red Blood Count 3.43 M/mcL (3.82-4.97); Red Cell Distribution Width 16.5 % (11.5-14.5); Segmented Neutrophils % 69.2 %
[2018-05-13] MEDS: FLUoxetine 20 MG CAPSULE PO SCH (09:24)
[2018-05-13] MEDS: *HR* Amiodarone 200 MG TABLET PO SCH (09:25)
[2018-05-13] MEDS: *HR* Heparin 5,000 UNIT/ML VIAL SQ SCH ×2 (09:25→16:13)
[2018-05-13] MEDS: amLODIPine 5 MG TABLET PO SCH (09:25)
[2018-05-13] MEDS: Aspirin Enteric Coated 81 MG Tablet PO SCH (09:25)
[2018-05-13] MEDS: Furosemide 40 MG/4 ML VIAL IVP SCH ×2 (09:25→16:13)
[2018-05-13] MEDS: Metoprolol XL (24 HR) Succ 25 MG TAB.ER.24H PO SCH (09:25)
[2018-05-13] MEDS: Cholecalciferol (D-3) 1,000 UNIT TABLET PO SCH (09:25)
[2018-05-13] MEDS: Pregabalin 75 MG CAPSULE PO SCH ×3 (09:25→20:51)
[2018-05-13] MEDS: Lisinopril 20 MG TABLET PO SCH (09:25)
[2018-05-13 09:29] LABS: Calcium 8.9 mg/dL (8.6-10.3); Potassium 4.2 mEq/L (3.5-5.1)
[2018-05-13] MEDS: Hydrocortisone Rectal 2.5% CRM 28 GM TUBE RC SCH ×2 (10:03→20:53)
[2018-05-13] MEDS: (Febuxostat [Uloric] 80 MG) PO SCH (10:19)
[2018-05-13] MEDS: Budesonide/Formoterol 160/4.5 1 PUFF INH IH SCH ×2 (10:54→21:59)
--- NOTE | 2018-05-13 13:23 | Internal Med Progress Note ---
Hospitalist Progress Note - Encounter Date of Encounter: 05/13/18 Time of Encounter: 08:46 - Subjective Interval History: Patient seen and examined this morning. Breathing improving. No fever, chills or diarrhea. -800 cc fluid balance. - Exam Vitals: Temp Pulse Resp BP Pulse Ox 97.7 F 53 16 138/62 95 05/13/18 11:17 05/13/18 11:17 05/13/18 11:17 05/13/18 11:17 05/13/18 11:17 Exam: Const: Vital signs listed above. Morbidly Obese, Mild acute distress. Alert and oriented Xs 3. Bipap at bedside Eyes: Sclera white, conjunctiva clear, lids are without lag. PERRLA. Pupils and irises are equal and round without defect. ENT: TMs intact and clear, normal canals, grossly normal hearing. Oropharanx clear and moist without erythema. Gums pink, good dentition. Lymph/Neck: No masses, thyromegaly, or abnormal cervical notes. No bruit. Tracheal midline. Cardio: RRR, Normal S1, S2. soft early systolic murmurs. no rubs or gallops. Skin warm and dry. 1+ peripheral edema- decreased Respiratory: Chest symmetrical, respirations somewhat labored. Difficult auscultation given habitus. CTA. Decreased air entry bilaterally Musculo: No deformity or scoliosis noted. No hawa gait disturbance noted. Pulses normal in all 4 extremities. Neurologic: No focal deficits, cranial nerves II-XII grossly intact with normal sensation, reflexes, coordination, muscle strength and tone. GI/Abdomen: Soft, non tender, non distended, Obese, no hepatosplemomegaly appreciated, normal bowel sounds, no masses noted. Pysch: good insight Skin:no ulceration or redness notice on both lower extremity. - Assessment and Plan (1) CHF (congestive heart failure) Current Visit: Yes Status: Chronic (2) Anemia Current Visit: No Status: Acute (3) Chronic kidney disease Current Visit: No Status: Acute (4) CAD (coronary artery disease) Current Visit: No Status: Chronic (5) COPD (chronic obstructive pulmonary disease) Current Visit: No Status: Chronic (6) DM (diabetes mellitus), type 2 Current Visit: No Status: Chronic (7) HLD (hyperlipidemia) Current Visit: No Status: Chronic (8) HTN (hypertension) Current Visit: No Status: Chronic (9) Hypothyroidism Current Visit: No Status: Chronic (10) OLIVER (obstructive sleep apnea) Current Visit: No Status: Chronic (11) Paroxysmal a-fib Current Visit: No Status: Chronic (12) DVT prophylaxis Current Visit: No Status: Acute (13) Depression Current Visit: Yes Status: Acute - Summary of Assessment and Plan Summary of Assessment and Plan: CHF - Diuresing well. - Most likely her symptoms are due to acute exacerbation of CHF. - continue IV diuresing with Lasix 40 twice a day IV. Monitor labs. Strict I's and O's. I/O charting not done. c/w Fluid restriction to 1 L per day. Salt restriction diet. - Moderate effusion in the right hemithorax may need tapping if no significant improvement from diuresing for symptomatic relief. Will follow up CXR tommorrow. - Unlikely that symptoms are due to pneumonia given recent treatment with broad- spectrum antibiotics. Also no leukocytosis, tachycardia or fevers. Will reconsider if no improvement on diuresing Hypoglycemia, DM II - Patient wanted to use insulin pump yesterday and wanted to dose insulin herself. All insulin was stopped after discussion with patient. Hypoglycemic this morning. Insulin pump stopped. Now resolved. - Still want to manage insulin herself. Discussed risk. Continue to hold all insulin as patient still persistent on using insulin pump. - c/w Accu-Cheks before meals and at bedtime Paroxysmal a-fib - Rate controlled with metoprolol succinate 25mg and amiodarone. We will continue it - Not on anticoagulation due to GI bleed Hyperkalemia - resolve Anemia - At baseline likely from CKD - We will monitor Chronic kidney disease - At baseline - No indication of COVER STITCH MACHINE OPERATOR - Monitor for now CAD - Troponin negative. Without chest pain. - Continue home aspirin, atorvastatin, metoprolol COPD - Continue home Symbicort - Scheduled and When necessary albuterol nebulizer HLD - Continue home atorvastatin HTN - Continue home lisinopril and amlodipine Hypothyroidism -Continue home levothyroxine 150 g OLIVER -Continue home BiPAP overnight Depression - Continue home fluoxetine and pregabalin DVT prophylaxis -Heparin subcutaneous - Time Spent with Patient Total time spent is greater than 50% in coordination of care (as documented) at patient's floor/unit and/or counseling patient: Internal Medicine: Result - Labs CBC & Chem 7: 05/13/18 07:34 05/13/18 07:34 Labs: Short CBC 05/13/18 Range/Units 07:34 WBC 9.2 (4.3-11.1) K/mcL Hgb 9.4 L (11.5-15.4) g/dL Hct 30.8 L (35.3-44.9) % Plt Count 210 (140-400) K/mcL Neutrophils # 6.4 (1.6-8.9) K/mcL BMP 05/13/18 07:34 Sodium 138 Potassium 4.2 Chloride 101 Carbon Dioxide 28 BUN 50 H Creatinine 1.48 H Glucose 84 Calcium 8.9 - VTE Documentation of Mechanical Device: Graduated compression elastic hosiery Consult Discharge Plan - Plan Referrals: Lang Jarvis DO [Primary Care Provider] - (1) CHF (congestive heart failure) Qualifiers: Heart failure type: unspecified Heart failure chronicity: acute on chronic Qualified Code(s): I50.9 - Heart failure, unspecified (2) Anemia Qualifiers: Anemia type: iron deficiency Iron deficiency anemia type: chronic blood loss Qualified Code(s): D50.0 - Iron deficiency anemia secondary to blood loss ( chronic) (3) Chronic kidney disease Qualifiers: Chronic kidney disease stage: stage 3 (moderate) Qualified Code(s): N18.3 - Chronic kidney disease, stage 3 (moderate) (4) CAD (coronary artery disease) Qualifiers: Coronary Disease-Associated Artery/Lesion type: [place] artery [place] vs. 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: with chcf use Diabetes mellitus complication status: with kidney complications Diabetes mellitus complication detail: with chronic kidney disease Chronic kidney disease stage: stage 3 (moderate) Qualified Code(s): E11.22 - Type 2 diabetes mellitus with diabetic chronic kidney disease; N18.3 - Chronic kidney disease, stage 3 ( moderate); Z79.4 - MCFP (current) use of insulin (7) HLD (hyperlipidemia) Qualifiers: Hyperlipidemia type: pure hypercholesterolemia Qualified Code(s): E78.00 - Pure hypercholesterolemia, unspecified; E78.0 - Pure hypercholesterolemia (8) HTN (hypertension) Qualifiers: Hypertension type: essential hypertension Qualified Code(s): I10 - Essential (primary) hypertension (9) Hypothyroidism Qualifiers: Hypothyroidism type: unspecified Qualified Code(s): E03.9 - Hypothyroidism, unspecified
[2018-05-13] MEDS: Subcutaneous Insulin Pump [T:Slim] 1 EACH MC SCH (14:34)
[2018-05-13] MEDS: B12 PO SCH (16:03)
[2018-05-13] MEDS: LEVOMEFOLATE CALCIUM PO SCH (16:03)
[2018-05-13] MEDS: B6 PO SCH (16:03)
[2018-05-13] MEDS: Melatonin 3 MG TABLET PO SCH (20:51)
[2018-05-14] MEDS: *HR* Heparin 5,000 UNIT/ML VIAL SQ SCH ×4 (00:07→23:45)
[2018-05-14] MEDS: Albuterol 2.5 MG/3 ML NEBULIZER IH SCH ×4 (03:58→21:30)
[2018-05-14 04:31] LABS: Potassium 4.3 mEq/L (3.5-5.1)
[2018-05-14] MEDS: Cholecalciferol (D-3) 1,000 UNIT TABLET PO SCH (08:23)
[2018-05-14] MEDS: Lisinopril 20 MG TABLET PO SCH (08:23)
[2018-05-14] MEDS: (Febuxostat [Uloric] 80 MG) PO SCH (08:23)
[2018-05-14] MEDS: Metoprolol XL (24 HR) Succ 25 MG TAB.ER.24H PO SCH (08:23)
[2018-05-14] MEDS: Pregabalin 75 MG CAPSULE PO SCH ×3 (08:23→21:27)
[2018-05-14] MEDS: amLODIPine 5 MG TABLET PO SCH (08:23)
[2018-05-14] MEDS: Furosemide 40 MG/4 ML VIAL IVP SCH ×3 (08:23→16:39)
[2018-05-14] MEDS: Hydrocortisone Rectal 2.5% CRM 28 GM TUBE RC SCH ×2 (08:23→21:31)
[2018-05-14] MEDS: *HR* Amiodarone 200 MG TABLET PO SCH (08:23)
[2018-05-14] MEDS: Aspirin Enteric Coated 81 MG Tablet PO SCH (08:23)
[2018-05-14] MEDS: FLUoxetine 20 MG CAPSULE PO SCH (08:23)
--- NOTE | 2018-05-14 08:59 | Internal Med Progress Note ---
Hospitalist Progress Note - Encounter Date of Encounter: 05/14/18 Time of Encounter: 08:57 - Subjective Interval History: Patient seen and examined this morning. Breathing gradually improving. No fever , chills or diarrhea. - Exam Vitals: Temp Pulse Resp BP Pulse Ox 97.6 F 56 20 146/45 95 05/14/18 07:43 05/14/18 07:43 05/14/18 07:43 05/14/18 07:43 05/14/18 07:43 Exam: Const: Vital signs listed above. Morbidly Obese, Mild acute distress. Alert and oriented Xs 3. Bipap at bedside Eyes: Sclera white, conjunctiva clear, lids are without lag. PERRLA. Pupils and irises are equal and round without defect. ENT: TMs intact and clear, normal canals, grossly normal hearing. Oropharanx clear and moist without erythema. Gums pink, good dentition. Lymph/Neck: No masses, thyromegaly, or abnormal cervical notes. No bruit. Tracheal midline. Cardio: RRR, Normal S1, S2. soft early systolic murmurs. no rubs or gallops. Skin warm and dry. 1+ peripheral edema- decreased Respiratory: Chest symmetrical, respirations somewhat labored. Difficult auscultation given habitus. CTA. Decreased air entry bilaterally Musculo: No deformity or scoliosis noted. No hawa gait disturbance noted. Pulses normal in all 4 extremities. Neurologic: No focal deficits, cranial nerves II-XII grossly intact with normal sensation, reflexes, coordination, muscle strength and tone. GI/Abdomen: Soft, non tender, non distended, Obese, no hepatosplemomegaly appreciated, normal bowel sounds, no masses noted. Pysch: good insight Skin:no ulceration or redness notice on both lower extremity. - Assessment and Plan (1) CHF (congestive heart failure) Current Visit: Yes Status: Chronic (2) Anemia Current Visit: No Status: Acute (3) Chronic kidney disease Current Visit: No Status: Acute (4) CAD (coronary artery disease) Current Visit: No Status: Chronic (5) COPD (chronic obstructive pulmonary disease) Current Visit: No Status: Chronic (6) DM (diabetes mellitus), type 2 Current Visit: No Status: Chronic (7) HLD (hyperlipidemia) Current Visit: No Status: Chronic (8) HTN (hypertension) Current Visit: No Status: Chronic (9) Hypothyroidism Current Visit: No Status: Chronic (10) OLIVER (obstructive sleep apnea) Current Visit: No Status: Chronic (11) Paroxysmal a-fib Current Visit: No Status: Chronic (12) DVT prophylaxis Current Visit: No Status: Acute (13) Depression Current Visit: Yes Status: Acute - Summary of Assessment and Plan Summary of Assessment and Plan: CHF - Most likely her symptoms are due to acute exacerbation of CHF. - Increase Lasix to 60 BID. Monitor labs given decreasing UO. Strict I's and O' s. c/w Fluid restriction to 1 L per day. Salt restriction diet. - CXR without significant change and symptomatic not significantly better. Will tap the moderate effusion in the right hemithorax. Will send fluid for analysis. - Unlikely that symptoms are due to pneumonia given recent treatment with broad- spectrum antibiotics. Also no leukocytosis, tachycardia or fevers. Hypoglycemia, DM II - Patient wanted to use insulin pump yesterday and wanted to dose insulin herself. All insulin was stopped after discussion with patient. Hypoglycemic this morning. Insulin pump stopped. Now resolved. - Still want to manage insulin herself. Discussed risk. Continue to hold all insulin as patient still persistent on using insulin pump. - c/w Accu-Cheks before meals and at bedtime Paroxysmal a-fib - Rate controlled with metoprolol succinate 25mg and amiodarone. We will continue it - Not on anticoagulation due to GI bleed Hyperkalemia - resolve Anemia - At baseline likely from CKD - We will monitor Chronic kidney disease - At baseline - No indication of APPOINTMENT COORDINATOR - Monitor for now CAD - Troponin negative. Without chest pain. - Continue home aspirin, atorvastatin, metoprolol COPD - Continue home Symbicort - Scheduled and When necessary albuterol nebulizer HLD - Continue home atorvastatin HTN - Continue home lisinopril and amlodipine Hypothyroidism -Continue home levothyroxine 150 g OLIVER -Continue home BiPAP overnight Depression - Continue home fluoxetine and pregabalin DVT prophylaxis -Heparin subcutaneous - Time Spent with Patient Total time spent is greater than 50% in coordination of care (as documented) at patient's floor/unit and/or counseling patient: Internal Medicine: Result - Labs CBC & Chem 7: 05/13/18 07:34 05/14/18 03:39 Labs: BMP 05/13/18 05/14/18 07:34 03:39 Sodium 138 136 Potassium 4.2 4.3 Chloride 101 100 Carbon Dioxide 28 29 BUN 50 H 53 H Creatinine 1.48 H 1.41 H Glucose 84 87 Calcium 8.9 9.0 - Impressions Impressions Chest X-Ray 05/14/18 06:00 IMPRESSION: No substantial interval change. D/ / Ashish Fuentes / Ashish Fuentes Interpreting Provider: Ashish Fuentes - VTE Documentation of Mechanical Device: Graduated compression elastic hosiery Consult Discharge Plan - Plan Referrals: Lang Jarvis DO [Primary Care Provider] - (1) CHF (congestive heart failure) Qualifiers: Heart failure type: unspecified Heart failure chronicity: acute on chronic Qualified Code(s): I50.9 - Heart failure, unspecified (2) Anemia Qualifiers: Anemia type: iron deficiency Iron deficiency anemia type: chronic blood loss Qualified Code(s): D50.0 - Iron deficiency anemia secondary to blood loss ( chronic) (3) Chronic kidney disease Qualifiers: Chronic kidney disease stage: stage 3 (moderate) Qualified Code(s): N18.3 - Chronic kidney disease, stage 3 (moderate) (4) CAD (coronary artery disease) Qualifiers: Coronary Disease-Associated Artery/Lesion type: [place] artery [place] vs. transplanted heart: [place] heart Associated angina: without angina Qualified Code(s): I25.10 - Atherosclerotic heart disease of [place] coronary artery without angina pectoris (5) COPD (chronic obstructive pulmonary disease) Qualifiers: COPD type: unspecified COPD Qualified Code(s): J44.9 - Chronic obstructive pulmonary disease, unspecified (6) DM (diabetes mellitus), type 2 Qualifiers: Diabetes mellitus long-term insulin use: with long-term use Diabetes mellitus complication status: with kidney complications Diabetes mellitus complication detail: with chronic kidney disease Chronic kidney disease stage: stage 3 (moderate) Qualified Code(s): E11.22 - Type 2 diabetes mellitus with diabetic chronic kidney disease; N18.3 - Chronic kidney disease, stage 3 ( moderate); Z79.4 - half-way (current) use of insulin (7) HLD (hyperlipidemia) Qualifiers: Hyperlipidemia type: pure hypercholesterolemia Qualified Code(s): E78.00 - Pure hypercholesterolemia, unspecified; E78.0 - Pure hypercholesterolemia (8) HTN (hypertension) Qualifiers: Hypertension type: essential hypertension Qualified Code(s): I10 - Essential (primary) hypertension (9) Hypothyroidism Qualifiers: Hypothyroidism type: unspecified Qualified Code(s): E03.9 - Hypothyroidism, unspecified
[2018-05-14] MEDS ORDERED: Furosemide 40 MG/4 ML VIAL IVP ONE (09:14)
[2018-05-14] MEDS: Budesonide/Formoterol 160/4.5 1 PUFF INH IH SCH ×2 (10:47→21:30)
[2018-05-14] MEDS: Subcutaneous Insulin Pump [T:Slim] 1 EACH MC SCH (12:57)
--- NOTE | 2018-05-14 13:13 | Electrocardiograph Report ---
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
[2018-05-14] MEDS: Melatonin 3 MG TABLET PO SCH (21:27)
[2018-05-15] MEDS: Albuterol 2.5 MG/3 ML NEBULIZER IH SCH ×4 (03:39→22:09)
--- NOTE | 2018-05-15 08:29 | Internal Med Progress Note ---
Hospitalist Progress Note - Encounter Date of Encounter: 05/15/18 Time of Encounter: 08:26 - Subjective Interval History: Patient seen and examined this morning. No new complains. No overnight events. Breathing gradually improving. Hypoglyemic this morning with some sweating. - Exam Vitals: Temp Pulse Resp BP Pulse Ox 98.2 F 48 18 177/75 99 05/15/18 06:49 05/15/18 06:49 05/15/18 06:49 05/15/18 06:49 05/15/18 06:49 Exam: Const: Vital signs listed above. Morbidly Obese, Mild acute distress. Alert and oriented Xs 3. Bipap at bedside Cardio: RRR, Normal S1, S2. soft early systolic murmurs. no rubs or gallops. Skin warm and dry. 1+ peripheral edema- decreased Respiratory: Chest symmetrical, respirations not labored. Difficult auscultation given habitus. CTA. Decreased air entry bilaterally, Decreased at Rt lung base but improved than yesterday Musculo: No deformity or scoliosis noted. No hawa gait disturbance noted. Pulses normal in all 4 extremities. Neurologic: No focal deficits, cranial nerves II-XII grossly intact with normal sensation, reflexes, coordination, muscle strength and tone. GI/Abdomen: Soft, non tender, non distended, Obese, no hepatosplemomegaly appreciated, normal bowel sounds, no masses noted. Skin:no ulceration or redness notice on both lower extremity. - Assessment and Plan (1) CHF (congestive heart failure) Current Visit: Yes Status: Chronic (2) Anemia Current Visit: No Status: Acute (3) Chronic kidney disease Current Visit: No Status: Acute (4) CAD (coronary artery disease) Current Visit: No Status: Chronic (5) COPD (chronic obstructive pulmonary disease) Current Visit: No Status: Chronic (6) DM (diabetes mellitus), type 2 Current Visit: No Status: Chronic (7) HLD (hyperlipidemia) Current Visit: No Status: Chronic (8) HTN (hypertension) Current Visit: No Status: Chronic (9) Hypothyroidism Current Visit: No Status: Chronic (10) OLIVER (obstructive sleep apnea) Current Visit: No Status: Chronic (11) Paroxysmal a-fib Current Visit: No Status: Chronic (12) DVT prophylaxis Current Visit: No Status: Acute (13) Depression Current Visit: Yes Status: Acute - Summary of Assessment and Plan Summary of Assessment and Plan: CHF - Increase Lasix to 60 BID. Monitor labs. Strict I's and O's. c/w Fluid restriction to 1 L per day. Salt restriction diet. - New CXR without significant change and symptomatic not significantly better. Will tap the moderate effusion in the right hemithorax tommorrow. Will send fluid for analysis. - Unlikely that symptoms are due to pneumonia given recent treatment with broad- spectrum antibiotics. Also no leukocytosis, tachycardia or fevers. Hypoglycemia, DM II - Patient using own insulin pump. With hypoglycemia again today. - Discussed risk. Ok to allow us to manage now. - Ask to stop her insulin pump. Will start levemir 25 and Premeal insulin 5 and sliding scale. - c/w Accu-Cheks before meals and at bedtime Paroxysmal a-fib - Rate controlled with metoprolol succinate 25mg and amiodarone. We will continue it - Not on anticoagulation due to GI bleed Hyperkalemia - resolve Anemia - At baseline likely from CKD - We will monitor Chronic kidney disease - At baseline - No indication of MARKING MACHINE TENDER - Monitor for now CAD - Troponin negative. Without chest pain. - Continue home aspirin, atorvastatin, metoprolol COPD - Continue home Symbicort - Scheduled and When necessary albuterol nebulizer HLD - Continue home atorvastatin HTN - Continue home lisinopril and amlodipine Hypothyroidism -Continue home levothyroxine 150 g OLIEVR -Continue home BiPAP overnight Depression - Continue home fluoxetine and pregabalin DVT prophylaxis -Heparin subcutaneous - Time Spent with Patient Total time spent is greater than 50% in coordination of care (as documented) at patient's floor/unit and/or counseling patient: Internal Medicine: Result - Labs CBC & Chem 7: 05/13/18 07:34 05/14/18 03:39 - VTE Documentation of Mechanical Device: Graduated compression elastic hosiery Consult Discharge Plan - Plan Referrals: Lang Jarvis, [Primary Care Provider] - (1) CHF (congestive heart failure) Qualifiers: Heart failure type: unspecified Heart failure chronicity: acute on chronic Qualified Code(s): I50.9 - Heart failure, unspecified (2) Anemia Qualifiers: Anemia type: iron deficiency Iron deficiency anemia type: chronic blood loss Qualified Code(s): D50.0 - Iron deficiency anemia secondary to blood loss ( chronic) (3) Chronic kidney disease Qualifiers: Chronic kidney disease stage: stage 3 (moderate) Qualified Code(s): N18.3 - Chronic kidney disease, stage 3 (moderate) (4) CAD (coronary artery disease) Qualifiers: Coronary Disease-Associated Artery/Lesion type: [place] artery [place] vs. transplanted heart: [place] heart Associated angina: without angina Qualified Code(s): I25.10 - Atherosclerotic heart disease of [place] coronary artery without angina pectoris (5) COPD (chronic obstructive pulmonary disease) Qualifiers: COPD type: unspecified COPD Qualified Code(s): J44.9 - Chronic obstructive pulmonary disease, unspecified (6) DM (diabetes mellitus), type 2 Qualifiers: Diabetes mellitus [facility]iary insulin use: with termite technician use Diabetes mellitus complication status: with kidney complications Diabetes mellitus complication detail: with chronic kidney disease Chronic kidney disease stage: stage 3 (moderate) Qualified Code(s): E11.22 - Type 2 diabetes mellitus with diabetic chronic kidney disease; N18.3 - Chronic kidney disease, stage 3 ( moderate); Z79.4 - longterm (current) use of insulin (7) HLD (hyperlipidemia) Qualifiers: Hyperlipidemia type: pure hypercholesterolemia Qualified Code(s): E78.00 - Pure hypercholesterolemia, unspecified; E78.0 - Pure hypercholesterolemia (8) HTN (hypertension) Qualifiers: Hypertension type: essential hypertension Qualified Code(s): I10 - Essential (primary) hypertension (9) Hypothyroidism Qualifiers: Hypothyroidism type: unspecified Qualified Code(s): E03.9 - Hypothyroidism, unspecified
[2018-05-15] MEDS: *HR* Heparin 5,000 UNIT/ML VIAL SQ SCH ×2 (09:58→17:13)
[2018-05-15 09:59] LABS: Calcium 8.8 mg/dL (8.6-10.3); Potassium 4.9 mEq/L (3.5-5.1)
[2018-05-15] MEDS: *HR* Amiodarone 200 MG TABLET PO SCH (10:00)
[2018-05-15] MEDS: amLODIPine 5 MG TABLET PO SCH (10:00)
[2018-05-15] MEDS: (Febuxostat [Uloric] 80 MG) PO SCH ×2 (10:00→11:25)
[2018-05-15] MEDS: Hydrocortisone Rectal 2.5% CRM 28 GM TUBE RC SCH ×2 (10:00→21:16)
[2018-05-15] MEDS: FLUoxetine 20 MG CAPSULE PO SCH (10:00)
[2018-05-15] MEDS: Aspirin Enteric Coated 81 MG Tablet PO SCH (10:00)
[2018-05-15] MEDS: Metoprolol XL (24 HR) Succ 25 MG TAB.ER.24H PO SCH (10:01)
[2018-05-15] MEDS: Cholecalciferol (D-3) 1,000 UNIT TABLET PO SCH (10:01)
[2018-05-15] MEDS: Budesonide/Formoterol 160/4.5 1 PUFF INH IH SCH ×2 (10:57→22:13)
[2018-05-15] MEDS: Pregabalin 75 MG CAPSULE PO SCH ×3 (11:07→21:14)
[2018-05-15] MEDS: Lisinopril 20 MG TABLET PO SCH (11:11)
[2018-05-15] MEDS: Furosemide 40 MG/4 ML VIAL IVP SCH ×2 (11:17→17:31)
[2018-05-15] MEDS: Insulin LISPRO 300 UNITS/3 ML VIAL SQ SCH ×5 (11:26→21:22)
[2018-05-15] MEDS: Subcutaneous Insulin Pump [T:Slim] 1 EACH MC SCH (14:01)
[2018-05-15] MEDS ORDERED: Insulin DETEMIR 100 UNIT/ML X5UNITS SQ SCH (21:00)
[2018-05-15] MEDS: Melatonin 3 MG TABLET PO SCH (21:14)
[2018-05-16] MEDS: *HR* Heparin 5,000 UNIT/ML VIAL SQ SCH ×4 (00:11→23:06)
[2018-05-16] MEDS: Albuterol 2.5 MG/3 ML NEBULIZER IH SCH ×4 (04:25→22:27)
[2018-05-16] MEDS: FLUoxetine 20 MG CAPSULE PO SCH (08:46)
[2018-05-16] MEDS: Furosemide 40 MG/4 ML VIAL IVP SCH ×2 (08:46→16:11)
[2018-05-16] MEDS: Pregabalin 75 MG CAPSULE PO SCH ×3 (08:47→22:58)
[2018-05-16] MEDS: Metoprolol XL (24 HR) Succ 25 MG TAB.ER.24H PO SCH (08:47)
[2018-05-16] MEDS: *HR* Amiodarone 200 MG TABLET PO SCH (08:47)
[2018-05-16] MEDS: Lisinopril 20 MG TABLET PO SCH (08:48)
[2018-05-16] MEDS: amLODIPine 5 MG TABLET PO SCH (08:48)
[2018-05-16] MEDS: Aspirin Enteric Coated 81 MG Tablet PO SCH (08:48)
[2018-05-16] MEDS: Cholecalciferol (D-3) 1,000 UNIT TABLET PO SCH (08:48)
[2018-05-16] MEDS: (Febuxostat [Uloric] 80 MG) PO SCH (08:52)
[2018-05-16] MEDS: Hydrocortisone Rectal 2.5% CRM 28 GM TUBE RC SCH ×2 (08:53→23:07)
[2018-05-16] MEDS: Insulin LISPRO 300 UNITS/3 ML VIAL SQ SCH ×7 (08:54→23:01)
--- NOTE | 2018-05-16 09:40 | Internal Med Progress Note ---
Hospitalist Progress Note - Encounter Date of Encounter: 05/16/18 Time of Encounter: 09:38 - Subjective Interval History: Appears more comfortable. No new complains. No overnight events. Breathing improved. - Exam Vitals: Temp Pulse Resp BP Pulse Ox 98.2 F 54 20 150/78 97 05/16/18 07:39 05/16/18 07:39 05/16/18 07:39 05/16/18 07:39 05/16/18 07:39 Exam: Const: Vital signs listed above. Morbidly Obese, No distress. Alert and oriented Xs 3. Bipap at bedside. Sitting in chair. Cardio: Irregular, Normal S1, S2. soft early systolic murmurs. no rubs or gallops. Skin warm and dry. 2+ peripheral edema Respiratory: Chest symmetrical, respirations not labored. Difficult auscultation given habitus. CTA. Decreased air entry bilaterally. More decreased at Rt lung base than left. Musculo: No deformity or scoliosis noted. No hawa gait disturbance noted. Pulses normal in all 4 extremities. Neurologic: No focal deficits, cranial nerves II-XII grossly intact with normal sensation, reflexes, coordination, muscle strength and tone. GI/Abdomen: Soft, non tender, non distended, Obese, no hepatosplemomegaly appreciated, normal bowel sounds, no masses noted. Skin:no ulceration or redness notice on both lower extremity. - Assessment and Plan (1) CHF (congestive heart failure) Current Visit: Yes Status: Chronic (2) Anemia Current Visit: No Status: Acute (3) Chronic kidney disease Current Visit: No Status: Acute (4) CAD (coronary artery disease) Current Visit: No Status: Chronic (5) COPD (chronic obstructive pulmonary disease) Current Visit: No Status: Chronic (6) DM (diabetes mellitus), type 2 Current Visit: No Status: Chronic (7) HLD (hyperlipidemia) Current Visit: No Status: Chronic (8) HTN (hypertension) Current Visit: No Status: Chronic (9) Hypothyroidism Current Visit: No Status: Chronic (10) OLIVER (obstructive sleep apnea) Current Visit: No Status: Chronic (11) Paroxysmal a-fib Current Visit: No Status: Chronic (12) DVT prophylaxis Current Visit: No Status: Acute (13) Depression Current Visit: Yes Status: Acute - Summary of Assessment and Plan Summary of Assessment and Plan: CHF - Increased Lasix to 60 IV BID. Good urine output. f/u BMP. Now apprear to be at her dry weight. - Monitor labs. Strict I's and O's. c/w Fluid restriction to 1 L per day. Salt restriction diet. - New CXR without significant change and symptomatic not significantly better. Will tap the moderate effusion in the right hemithorax tommorrow. Will send fluid for analysis. - Unlikely that symptoms are due to pneumonia given recent treatment with broad- spectrum antibiotics. Also no leukocytosis, tachycardia or fevers. Hypoglycemia, DM II - Patient using own insulin pump. With hypoglycemia again today. - Discussed risk. Ok to allow us to manage now. - Ask to stop her insulin pump. levemir increased to 35 and Premeal insulin 5 and sliding scale. - c/w Accu-Cheks before meals and at bedtime Paroxysmal a-fib - Rate controlled with metoprolol succinate 25mg and amiodarone. We will continue it - Not on anticoagulation due to GI bleed Hyperkalemia - resolve Anemia - At baseline likely from CKD - We will monitor Chronic kidney disease - At baseline - No indication of MINER OPERATOR - Monitor for now CAD - Troponin negative. Without chest pain. - Continue home aspirin, atorvastatin, metoprolol COPD - Continue home Symbicort - Scheduled and When necessary albuterol nebulizer HLD - Continue home atorvastatin HTN - Continue home lisinopril and amlodipine Hypothyroidism -Continue home levothyroxine 150 g OLIVER -Continue home BiPAP overnight Depression - Continue home fluoxetine and pregabalin DVT prophylaxis -Heparin subcutaneous PT eval Plan for DC tomorrow. - Time Spent with Patient Total time spent is greater than 50% in coordination of care (as documented) at patient's floor/unit and/or counseling patient: Internal Medicine: Result - Labs CBC & Chem 7: 05/13/18 07:34 05/15/18 09:16 Labs: BMP 05/15/18 09:16 Sodium 136 Potassium 4.9 Chloride 99 Carbon Dioxide 30 H BUN 49 H Creatinine 1.35 H Glucose 171 H Calcium 8.8 - VTE Documentation of Mechanical Device: Graduated compression elastic hosiery Consult Discharge Plan - Plan Referrals: Lang Jarvis DO [Primary Care Provider] - (1) CHF (congestive heart failure) Qualifiers: Heart failure type: unspecified Heart failure chronicity: acute on chronic Qualified Code(s): I50.9 - Heart failure, unspecified (2) Anemia Qualifiers: Anemia type: iron deficiency Iron deficiency anemia type: chronic blood loss Qualified Code(s): D50.0 - Iron deficiency anemia secondary to blood loss ( chronic) (3) Chronic kidney disease Qualifiers: Chronic kidney disease stage: stage 3 (moderate) Qualified Code(s): N18.3 - Chronic kidney disease, stage 3 (moderate) (4) CAD (coronary artery disease) Qualifiers: Coronary Disease-Associated Artery/Lesion type: [place] artery [place] vs. transplanted heart: [place] heart Associated angina: without angina Qualified Code(s): I25.10 - Atherosclerotic heart disease of [place] coronary artery without angina pectoris (5) COPD (chronic obstructive pulmonary disease) Qualifiers: COPD type: unspecified COPD Qualified Code(s): J44.9 - Chronic obstructive pulmonary disease, unspecified (6) DM (diabetes mellitus), type 2 Qualifiers: Diabetes mellitus emt intermediate insulin use: with emt intermediate use Diabetes mellitus complication status: with kidney complications Diabetes mellitus complication detail: with chronic kidney disease Chronic kidney disease stage: stage 3 (moderate) Qualified Code(s): E11.22 - Type 2 diabetes mellitus with diabetic chronic kidney disease; N18.3 - Chronic kidney disease, stage 3 ( moderate); Z79.4 - snf (current) use of insulin (7) HLD (hyperlipidemia) Qualifiers: Hyperlipidemia type: pure hypercholesterolemia Qualified Code(s): E78.00 - Pure hypercholesterolemia, unspecified; E78.0 - Pure hypercholesterolemia (8) HTN (hypertension) Qualifiers: Hypertension type: essential hypertension Qualified Code(s): I10 - Essential (primary) hypertension (9) Hypothyroidism Qualifiers: Hypothyroidism type: unspecified Qualified Code(s): E03.9 - Hypothyroidism, unspecified
[2018-05-16 10:24] LABS: INR 1.3; Prothrombin Time 14.5 Seconds (9.4-12.1)
[2018-05-16 10:26] LABS: Calcium 8.9 mg/dL (8.6-10.3); Potassium 4.3 mEq/L (3.5-5.1)
[2018-05-16] MEDS: Budesonide/Formoterol 160/4.5 1 PUFF INH IH SCH ×2 (10:42→22:27)
--- NOTE | 2018-05-16 12:27 | IR Procedure Note ---
Date of procedure: 05/16/18 Consent Obtained: Verbal consent, Written consent Timeout: Correct patient and procedure verified, Correct site verified, Time out performed, Skin prep completed Local anesthetic: Lidocaine 1% Indications: right pleural effusion Procedure Performed: right thoracentesis Was there an [employer] assistant manager present: No Site/Technique: right pleural space Results/Findings: moderate pleural effusion, 700 cc straw color fluid drain Estimated blood loss (cc): 0 Complications: None; Tolerated procedure well Post Procedure Treatment Plan: xray Specimen: 700 cc fluid
[2018-05-16 13:17] LABS: Amylase,Pleural Fluid < 10 Units/L (No Ref Range); Glucose,Pleural Fluid 260 mg/dL (No Ref Range); LDH,Pleural Fluid 50 Units/L (No Ref Range); RBC,Pleural Fluid < 0.002 M/mcL; Total Protein,Pleural Fluid < 3.0 g/dL (No Ref Range)
[2018-05-16] MEDS: Subcutaneous Insulin Pump [T:Slim] 1 EACH MC SCH (16:12)
[2018-05-16 16:44] LABS: Appearance of Pleural Fl Clear (Clear)
[2018-05-16] MEDS ORDERED: Insulin DETEMIR 100 UNIT/ML X5UNITS SQ SCH (21:00)
[2018-05-16] MEDS: Melatonin 3 MG TABLET PO SCH (22:58)
[2018-05-16] MEDS: Nystatin POWDER 30 GM BOTTLE TP SCH (22:59)
[2018-05-17] MEDS: Albuterol 2.5 MG/3 ML NEBULIZER IH SCH ×4 (03:55→22:13)
[2018-05-17 05:44] LABS: Calcium 8.9 mg/dL (8.6-10.3); Potassium 4.5 mEq/L (3.5-5.1)
[2018-05-17] MEDS: Insulin LISPRO 300 UNITS/3 ML VIAL SQ SCH ×7 (07:59→21:18)
[2018-05-17] MEDS: Furosemide 40 MG/4 ML VIAL IVP SCH ×2 (08:49→16:01)
[2018-05-17] MEDS: *HR* Heparin 5,000 UNIT/ML VIAL SQ SCH ×3 (08:49→23:16)
[2018-05-17] MEDS: Metoprolol XL (24 HR) Succ 25 MG TAB.ER.24H PO SCH (08:50)
[2018-05-17] MEDS: Pregabalin 75 MG CAPSULE PO SCH ×3 (08:50→21:17)
[2018-05-17] MEDS: Lisinopril 20 MG TABLET PO SCH (08:50)
[2018-05-17] MEDS: *HR* Amiodarone 200 MG TABLET PO SCH (08:50)
[2018-05-17] MEDS: Cholecalciferol (D-3) 1,000 UNIT TABLET PO SCH (08:50)
[2018-05-17] MEDS: Aspirin Enteric Coated 81 MG Tablet PO SCH (08:50)
[2018-05-17] MEDS: FLUoxetine 20 MG CAPSULE PO SCH (08:51)
[2018-05-17] MEDS: amLODIPine 5 MG TABLET PO SCH (08:51)
[2018-05-17] MEDS: Budesonide/Formoterol 160/4.5 1 PUFF INH IH SCH ×2 (10:30→22:14)
[2018-05-17] MEDS: (Febuxostat [Uloric] 80 MG) PO SCH (11:39)
[2018-05-17] MEDS: Hydrocortisone Rectal 2.5% CRM 28 GM TUBE RC SCH ×3 (11:40→23:41)
[2018-05-17] MEDS: Nystatin POWDER 30 GM BOTTLE TP SCH ×2 (11:43→23:41)
[2018-05-17] MEDS ORDERED: Lactulose Oral Soln 20 GM/30 ML UDC PO PRN (14:50)
--- NOTE | 2018-05-17 16:45 | Internal Med Progress Note ---
Hospitalist Progress Note - Encounter Date of Encounter: 05/17/18 Time of Encounter: 09:00 - Subjective Interval History: Pt's SOB has slightly improved. Still has b/l leg swelling. - Exam Vitals: Temp Pulse Resp BP Pulse Ox 98.6 F 54 18 145/49 97 05/17/18 15:00 05/17/18 15:00 05/17/18 15:59 05/17/18 15:00 05/17/18 15:59 Exam: Const: Vital signs listed above. Morbidly Obese, No distress. Alert and oriented Xs 3. Bipap at bedside. Sitting in chair. Cardio: Irregular, Normal S1, S2. soft early systolic murmurs. no rubs or gallops. Skin warm and dry. 2+ peripheral edema Respiratory: Chest symmetrical, respirations not labored. Difficult auscultation given habitus. CTA. Decreased air entry bilaterally. More decreased at Rt lung base than left. Musculo: No deformity or scoliosis noted. No hawa gait disturbance noted. B/L pedal edema Neurologic: No focal deficits, cranial nerves II-XII grossly intact with normal sensation, reflexes, coordination, muscle strength and tone. GI/Abdomen: Soft, non tender, non distended, Obese, no hepatosplemomegaly appreciated, normal bowel sounds, no masses noted. Skin:no ulceration or redness notice on both lower extremity. - Assessment and Plan (1) DVT prophylaxis Current Visit: No Status: Acute Assessment and Plan: Heparin subcutaneous (2) COPD (chronic obstructive pulmonary disease) Current Visit: No Status: Chronic Assessment and Plan: - Continue home Symbicort - Scheduled and When necessary albuterol nebulizer - Has no wheezing (3) Anemia Current Visit: No Status: Acute Assessment and Plan: - At baseline likely from CKD - We will monitor (4) CAD (coronary artery disease) Current Visit: No Status: Chronic Assessment and Plan: - Troponin negative. Without chest pain. - Continue home aspirin, atorvastatin, metoprolol (5) DM (diabetes mellitus), type 2 Current Visit: No Status: Chronic Assessment and Plan: - Hold insulin pump. - Keep patient on 45 units of Levemir and 5 units pre-meal. SSI (6) Paroxysmal a-fib Current Visit: No Status: Chronic Assessment and Plan: Rate controlled with metoprolol succinate 25mg and amiodarone. We will continue it - Not on anticoagulation due to hx of GI bleed (7) OLIVER (obstructive sleep apnea) Current Visit: No Status: Chronic Assessment and Plan: Continue home BiPAP overnight (8) Chronic kidney disease Current Visit: No Status: Acute Assessment and Plan: - At baseline - No indication of EVENTS AND PROMOTIONS ASSISTANT - Monitor for now (9) CHF (congestive heart failure) Current Visit: Yes Status: Chronic Assessment and Plan: - Chest x-ray with the congestion and effusion. BNP 590. Significant pedal edema. - Most likely her symptoms are due to acute exacerbation of CHF. - Current continue IV diuresing with Lasix 60 twice a day. Monitor labs. Strict I's and O's. Fluid restriction to 1 L per day. Salt restriction diet. - Moderate effusion in the right hemithorax, IR thoracentesis done, results shows transduate, most likely due to CHF. (10) Hypothyroidism Current Visit: No Status: Chronic Assessment and Plan: Continue home levothyroxine 150 g (11) HTN (hypertension) Current Visit: No Status: Chronic Assessment and Plan: Continue home lisinopril and amlodipine (12) HLD (hyperlipidemia) Current Visit: No Status: Chronic Assessment and Plan: Continue home atorvastatin (13) Depression Current Visit: Yes Status: Acute Assessment and Plan: Continue home fluoxetine and pregabalin - Summary of Assessment and Plan Summary of Assessment and Plan: Iv lasix increased to 60mg iv bid. I/O negtive 6L, improved SOB, still leg swelling, cont to monitor. - Time Spent with Patient Total time spent is greater than 50% in coordination of care (as documented) at patient's floor/unit and/or counseling patient: 30 min 25 - 35 minutes Plan of Care Discussed with: patient Internal Medicine: Result - Labs CBC & Chem 7: 05/13/18 07:34 05/17/18 04:36 Labs: BMP 05/17/18 04:36 Sodium 137 Potassium 4.5 Chloride 100 Carbon Dioxide 28 BUN 51 H Creatinine 1.42 H Glucose 222 H Calcium 8.9 - ABG Interpretation ABG results: PT/INR, D-dimer PT 14.5 Seconds (9.4-12.1) H 05/16/18 09:14 - Impressions Impressions Thoracentesis 05/16/18 06:53 IMPRESSION: Successful ultrasound guided thoracentesis. D/ / Preston Kilgore / Preston Kilgore Interpreting Provider: Preston Kilgore - VTE Documentation of Mechanical Device: Graduated compression elastic hosiery Consult Discharge Plan - Plan Referrals: Lang Jarvis DO [Primary Care Provider] - (2) COPD (chronic obstructive pulmonary disease) Qualifiers: COPD type: unspecified COPD Qualified Code(s): J44.9 - Chronic obstructive pulmonary disease, unspecified (3) Anemia Qualifiers: Anemia type: iron deficiency Iron deficiency anemia type: chronic blood loss Qualified Code(s): D50.0 - Iron deficiency anemia secondary to blood loss ( chronic) (4) CAD (coronary artery disease) Qualifiers: Coronary Disease-Associated Artery/Lesion type: [place] artery [place] vs. transplanted heart: [place] heart Associated angina: without angina Qualified Code(s): I25.10 - Atherosclerotic heart disease of [place] coronary artery without angina pectoris (5) DM (diabetes mellitus), type 2 Qualifiers: Diabetes mellitus chcf insulin use: with chcf use Diabetes mellitus complication status: with kidney complications Diabetes mellitus complication detail: with chronic kidney disease Chronic kidney disease stage: stage 3 (moderate) Qualified Code(s): E11.22 - Type 2 diabetes mellitus with diabetic chronic kidney disease; N18.3 - Chronic kidney disease, stage 3 ( moderate); 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.4 - 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 of 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 (8) Chronic kidney disease Qualifiers: Chronic kidney disease stage: stage 3 (moderate) Qualified Code(s): N18.3 - Chronic kidney disease, stage 3 (moderate) (9) CHF (congestive heart failure) Qualifiers: Heart failure type: unspecified Heart failure chronicity: acute on chronic Qualified Code(s): I50.9 - Heart failure, unspecified (10) Hypothyroidism Qualifiers: Hypothyroidism type: unspecified Qualified Code(s): E03.9 - Hypothyroidism, unspecified (11) HTN (hypertension) Qualifiers: Hypertension type: essential hypertension Qualified Code(s): I10 - Essential (primary) hypertension (12) HLD (hyperlipidemia) Qualifiers: Hyperlipidemia type: pure hypercholesterolemia Qualified Code(s): E78.00 - Pure hypercholesterolemia, unspecified; E78.0 - Pure hypercholesterolemia
[2018-05-17] MEDS ORDERED: Insulin DETEMIR 100 UNIT/ML X5UNITS SQ SCH (21:00)
[2018-05-17] MEDS: Melatonin 3 MG TABLET PO SCH (21:18)
[2018-05-18] MEDS: Albuterol 2.5 MG/3 ML NEBULIZER IH SCH ×2 (03:51→10:40)
[2018-05-18 05:05] LABS: Basophils % 0.4 %; Eosinophils # 0.5 K/mcL (0.0-0.6); Eosinophils % 6.2 %; Hematocrit 28.1 % (35.3-44.9); Hemoglobin 8.8 g/dL (11.5-15.4); Immature Granulocytes % 0.5 % (0-4); Lymphocytes # 1.1 K/mcL (0.6-4.6); Mean Corpuscular HGB Conc 31.3 g/dL (31.6-35.5); Mean Corpuscular Hemoglobin 27.8 pg (28.0-33.3); Mean Corpuscular Volume 88.6 fL (83.0-100.0); Mean Platelet Volume 11.7 fL (9.4-12.4); Monocytes # 0.7 K/mcL (0.0-1.3); Monocytes % 8.6 %; Neutrophils # 5.6 K/mcL (1.6-8.9); Nucleated Red Blood Cells 0.5 /100 WBC (0); Platelet Count 204 K/mcL (140-400); Red Blood Count 3.17 M/mcL (3.82-4.97); Red Cell Distribution Width 16.5 % (11.5-14.5); Segmented Neutrophils % 70.3 %
[2018-05-18 06:48] LABS: Calcium 8.8 mg/dL (8.6-10.3); Potassium 4.6 mEq/L (3.5-5.1)
[2018-05-18 07:15] VITALS: BP 139/54
[2018-05-18] MEDS: Insulin LISPRO 300 UNITS/3 ML VIAL SQ SCH ×2 (09:16→09:18)
[2018-05-18] MEDS: *HR* Heparin 5,000 UNIT/ML VIAL SQ SCH (09:17)
[2018-05-18] MEDS: Furosemide 40 MG/4 ML VIAL IVP SCH (09:20)
[2018-05-18] MEDS: FLUoxetine 20 MG CAPSULE PO SCH (09:21)
[2018-05-18] MEDS: Lisinopril 20 MG TABLET PO SCH (09:21)
[2018-05-18] MEDS: Pregabalin 75 MG CAPSULE PO SCH (09:22)
[2018-05-18] MEDS: *HR* Amiodarone 200 MG TABLET PO SCH (09:22)
[2018-05-18] MEDS: Metoprolol XL (24 HR) Succ 25 MG TAB.ER.24H PO SCH (09:22)
[2018-05-18] MEDS: Cholecalciferol (D-3) 1,000 UNIT TABLET PO SCH (09:23)
[2018-05-18] MEDS: Aspirin Enteric Coated 81 MG Tablet PO SCH (09:23)
[2018-05-18] MEDS: amLODIPine 5 MG TABLET PO SCH (09:23)
[2018-05-18] MEDS: Nystatin POWDER 30 GM BOTTLE TP SCH (09:24)
[2018-05-18] MEDS: (Febuxostat [Uloric] 80 MG) PO SCH (09:24)
[2018-05-18] MEDS: Hydrocortisone Rectal 2.5% CRM 28 GM TUBE RC SCH (09:25)
[2018-05-18] MEDS: Budesonide/Formoterol 160/4.5 1 PUFF INH IH SCH (10:40)
--- NOTE | 2018-05-18 12:12 | Discharge Summary ---
- NOTES TO OUTPATIENT PROVIDER Notes to Outpatient Provider: Lasix increased to 60 mg po bid Orders not resulted at time of discharge: Pending orders 05/14/18 09:02 Cytology [PTH] Routine 05/14/18 09:03 Culture,Anaerobic [RM] Routine Culture,Body Fluid [RM] Routine Date of Encounter: 05/18/18 Time of Encounter: 11:00 - Discharge Diagnosis (1) DVT prophylaxis Priority: Secondary Status: Acute (2) COPD (chronic obstructive pulmonary disease) Priority: Secondary Status: Chronic Qualifiers: COPD type: unspecified COPD Qualified Code(s): J44.9 - Chronic obstructive pulmonary disease, unspecified (3) Anemia Priority: Secondary Status: Acute Qualifiers: Anemia type: iron deficiency Iron deficiency anemia type: chronic blood loss Qualified Code(s): D50.0 - Iron deficiency anemia secondary to blood loss (chronic) (4) CAD (coronary artery disease) Priority: Secondary Status: Chronic Qualifiers: Coronary Disease-Associated Artery/Lesion type: [place] artery [place] vs. transplanted heart: [place] heart Associated angina: without angina Qualified Code(s): I25.10 - Atherosclerotic heart disease of [place] coronary artery without angina pectoris (5) DM (diabetes mellitus), type 2 Priority: Secondary Status: Chronic Qualifiers: Diabetes mellitus halfway insulin use: with halfway use Diabetes mellitus complication status: with kidney complications Diabetes mellitus complication detail: with chronic kidney disease Chronic kidney disease stage : stage 3 (moderate) Qualified Code(s): E11.22 - Type 2 diabetes mellitus with diabetic chronic kidney disease; N18.3 - Chronic kidney disease, stage 3 ( moderate); Z79.4 - computer terminal 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 of insulin (6) Paroxysmal a-fib Priority: Secondary Status: Chronic (7) OLIVER (obstructive sleep apnea) Priority: Secondary Status: Chronic (8) Chronic kidney disease Priority: Secondary Status: Acute Qualifiers: Chronic kidney disease stage: stage 3 (moderate) Qualified Code(s): N18.3 - Chronic kidney disease, stage 3 (moderate) (9) CHF (congestive heart failure) Priority: Primary Status: Chronic Qualifiers: Heart failure type: unspecified Heart failure chronicity: acute on chronic Qualified Code(s): I50.9 - Heart failure, unspecified (10) Hypothyroidism Priority: Secondary Status: Chronic Qualifiers: Hypothyroidism type: unspecified Qualified Code(s): E03.9 - Hypothyroidism , unspecified (11) HTN (hypertension) Priority: Secondary Status: Chronic Qualifiers: Hypertension type: essential hypertension Qualified Code(s): I10 - Essential (primary) hypertension (12) HLD (hyperlipidemia) Priority: Secondary Status: Chronic Qualifiers: Hyperlipidemia type: pure hypercholesterolemia Qualified Code(s): E78.00 - Pure hypercholesterolemia, unspecified; E78.0 - Pure hypercholesterolemia (13) Depression Priority: Secondary Status: Acute Qualifiers: Depression Type: unspecified Qualified Code(s): F32.9 - Major depressive disorder, single episode, unspecified Hospital course: Ms. Feliciano is a 62 year old female present to ER for shortness of breath and a bilateral leg swelling. Patient was treated as CHF exacerbation with IV Lasix. After treatment, her shortness of breath symptoms has improved. Leg swelling is decreased. Patient feels her condition has get back to her baseline. Cumulative I/O negative 7 L. BW decreased around 5 kg. Will switch patient to by mouth Lasix and the discharge patient home. Continue home health. I saw and examined the patient today. Patient denies chest pain or shortness of breath. Oxygen requirement is at her baseline level. Vitals are stable. Still mild bilateral leg swelling but improved. Will continue by mouth Lasix, follow-up with PCP in one week. Continue home health. Discharge discussed with: patient - Time Spent with Patient Total time spent providing and/or coordinating discharge services: 25 min Less than 30 minutes - Discharge Medications Prescriptions: Furosemide [Lasix] 60 mg PO BID 30 Days #60 tablet Home Medications: Albuterol Neb [Proventil Neb] 2.5 mg IH Q4H 02/07/16 [History] Albuterol Sulfate [Proventil Hfa] 2 puff IH Q4H PRN 02/07/16 [History] Pregabalin [Lyrica] 75 mg PO TID 02/07/16 [History] Melatonin 10 mg PO HS #30 capsule 02/11/16 [Rx] B12/Levomefolate Calcium/B-6 [Foltx Tablet] 1 tab PO QPM 02/29/16 [History] Budesonide/Formoterol 160/4.5 [Symbicort 160/4.5] 2 puff IH BIDR 30 Days inhaler 03/03/16 [Rx] Cholecalciferol (Vitamin D3) [Dialyvite Vitamin D] 5,000 unit PO QAM 03/27/16 [ History] Omeprazole 40 mg PO QPM 03/27/16 [History] Amiodarone [Cordarone] 200 mg PO DAILY #30 tablet 04/11/16 [Rx] Acetaminophen [Tylenol] 500 mg PO Q6HR PRN 06/12/16 [History] Oxygen 4 l NS AD 06/12/16 [History] Febuxostat [Uloric] 80 mg PO DAILY 09/10/16 [History] Lisinopril [Zestril] 40 mg PO DAILY #30 tablet 10/16/16 [Rx] amLODIPine [Norvasc] 10 mg PO DAILY #30 tablet 10/16/16 [Rx] Atorvastatin Calcium [Lipitor] 20 mg PO HS 01/02/17 [History] Docusate [Colace] 100 mg PO BID PRN #60 capsule 01/03/17 [Rx] Aspirin [Lo-Dose Aspirin EC] 81 mg PO DAILY 11/09/17 [History] FLUoxetine HCl [Prozac] 20 mg PO DAILY 11/09/17 [History] Montelukast [Singulair] 10 mg PO DAILY 11/09/17 [History] Subcutaneous Insulin Pump [T:Slim] 1 each MC AD 11/30/17 [History] Hydrocortisone [Anusol-Hc] 30 gm RC BID #1 cream..g. 12/03/17 [Rx] Levothyroxine [Synthroid] 150 mcg PO QAM #30 tablet 12/03/17 [Rx] Metoprolol Succinate [Toprol Xl] 25 mg PO QDPC #30 tab.er.24h 12/03/17 [Rx] Furosemide [Lasix] 60 mg PO BID 30 Days #60 tablet 05/18/18 [Rx] Allergies/Adverse Reactions: 3 Allergy/AdvReac Type Severity Reaction Status Date / Time ciprofloxacin [From Cipro] Allergy Severe Anaphylaxis Verified 11/30/17 10:59 clarithromycin [From Biaxin] Allergy Severe Hives Verified 11/30/17 10:59 clonidine Allergy Severe Anaphylaxis Verified 11/30/17 10:59 levofloxacin [From Levaquin] Allergy Severe Anaphylaxis Verified 11/30/17 10:59 Warfarin Allergy Severe Difficulty Verified 11/30/17 10:59 Breathing Cefaclor Allergy Anaphylaxis Verified 11/30/17 10:59 codeine Allergy Rash Verified 11/30/17 10:59 Ertapenem [From Invanz] Allergy Rash Verified 05/11/18 17:21 Hydralazine Allergy Hives Verified 11/30/17 10:59 sulfamethoxazole Allergy Hives Verified 11/30/17 10:59 [From Bactrim] trimethoprim [From Bactrim] Allergy Hives Verified 11/30/17 10:59 tiotropium AdvReac Severe Blurry Verified 11/30/17 10:59 [From Spiriva with Vision HandiHaler] acarbose AdvReac Blurry Verified 11/30/17 10:59 Vision atorvastatin [From Lipitor] AdvReac Muscle Pain Verified 11/30/17 10:59 fenofibrate [From Tricor] AdvReac Muscle Pain Verified 11/30/17 10:59 rivaroxaban [From Xarelto] AdvReac Gastrointestinal Verified 11/30/17 10:59 Upset Date of admission: 05/11/18 18:22 Primary care physician: Lang Jarvis DO Discharging clinician: Dorothy Martinez Anticipated date of discharge: 05/18/18 - Constitutional Vitals: Temp Pulse Resp BP Pulse Ox 98.6 F 54 16 139/54 100 05/18/18 07:11 05/18/18 07:11 05/18/18 10:42 05/18/18 07:11 05/18/18 10:42 General appearance: Present: mild distress, A&O X 3, morbidly obese, answers questions appropriately Exam: In NAD - Head Head exam: Present: atraumatic, normocephalic - Eye Eye exam: Present: PERRL, conjuntiva pink, sclera anicteric Pupils: Present: PERRL - Neck Neck exam general surgery: Present: supple, trachea midline. Absent: lymphadenopathy - Respiratory Respiratory exam: Present: CTAB. Absent: accessory muscle use, rales, rhonchi, wheezes - Cardiovascular Cardiovascular exam: Present: RRR, +S1, +S2. Absent: diastolic murmur, gallop, rubs, systolic murmur - GI/Abdominal GI/Abdominal exam: Present: normal bowel sounds, soft, no peritoneal signs. Absent: distended, tenderness - Extremities Exam Extremities exam: Present: pedal edema (Mild to moderate pedal edema), warm, radial pulses palpable and symmetrical. Absent: calf tenderness, cyanotic - Neurological Exam Neurological exam: Present: CN II-XII intact, oriented X3, no focal deficits. Absent: pronater drift, facial droop, speech deficit - Skin Skin exam: Present: dry, intact - Patient Status Disposition: Home Health Service Condition: Good Functional capacity at discharge: uses cane/walker Overall status at discharge: patient is back to baseline - Discharge Instructions Follow Up With: Lang Jarvis DO [Primary Care Provider] - 05/25/18 - Diet and Activity Activity: as per physical therapy, increase activity as tolerated Diet: low fat, low cholesterol, low salt diet, other (Fluid restriction 1.8 L per day) - VTE Documentation of Mechanical Device: Graduated compression elastic hosiery
--- NOTE | 2018-05-18 12:28 | Physician Discharge Referral ---
Home Health/Hosp Referral Info Transfer to: Home Health, Hospice Provider in Charge Post Discharge: PCP - Diagnosis (1) DVT prophylaxis Status: Acute (2) COPD (chronic obstructive pulmonary disease) Status: Chronic (3) Anemia Status: Acute (4) CAD (coronary artery disease) Status: Chronic (5) DM (diabetes mellitus), type 2 Status: Chronic (6) Paroxysmal a-fib Status: Chronic (7) OLIVER (obstructive sleep apnea) Status: Chronic (8) Chronic kidney disease Status: Acute (9) CHF (congestive heart failure) Status: Chronic (10) Hypothyroidism Status: Chronic (11) HTN (hypertension) Status: Chronic (12) HLD (hyperlipidemia) Status: Chronic (13) Depression Status: Acute - Respiratory Orders Oxygen / L per min (3) Smoking Cessation: Smoking cessation has been advised. For more information, call the [employer] Tobacco Quit Line at 8-372-BKSW-NOW. - Diet/Nutrition Diet/Nutrition Orders: No Added Salt (DOYLE), Renal, Cardiac Diet/Nutrition: List: Fluid restriction 1.8 L per day - Services Needed Following services are medically necessary services: Nursing, Home Health Aide, Physical Therapy, Occupational Therapy - Transfer Medications Prescriptions: Furosemide [Lasix] 60 mg PO BID 30 Days #60 tablet Home Medications: Albuterol Neb [Proventil Neb] 2.5 mg IH Q4H 02/07/16 [History] Albuterol Sulfate [Proventil Hfa] 2 puff IH Q4H PRN 02/07/16 [History] Pregabalin [Lyrica] 75 mg PO TID 02/07/16 [History] Melatonin 10 mg PO HS #30 capsule 02/11/16 [Rx] B12/Levomefolate Calcium/B-6 [Foltx Tablet] 1 tab PO QPM 02/29/16 [History] Budesonide/Formoterol 160/4.5 [Symbicort 160/4.5] 2 puff IH BIDR 30 Days inhaler 03/03/16 [Rx] Cholecalciferol (Vitamin D3) [Dialyvite Vitamin D] 5,000 unit PO QAM 03/27/16 [ History] Omeprazole 40 mg PO QPM 03/27/16 [History] Amiodarone [Cordarone] 200 mg PO DAILY #30 tablet 04/11/16 [Rx] Acetaminophen [Tylenol] 500 mg PO Q6HR PRN 06/12/16 [History] Oxygen 4 l NS AD 06/12/16 [History] Febuxostat [Uloric] 80 mg PO DAILY 09/10/16 [History] Lisinopril [Zestril] 40 mg PO DAILY #30 tablet 10/16/16 [Rx] amLODIPine [Norvasc] 10 mg PO DAILY #30 tablet 10/16/16 [Rx] Atorvastatin Calcium [Lipitor] 20 mg PO HS 01/02/17 [History] Docusate [Colace] 100 mg PO BID PRN #60 capsule 01/03/17 [Rx] Aspirin [Lo-Dose Aspirin EC] 81 mg PO DAILY 11/09/17 [History] FLUoxetine HCl [Prozac] 20 mg PO DAILY 11/09/17 [History] Montelukast [Singulair] 10 mg PO DAILY 11/09/17 [History] Subcutaneous Insulin Pump [T:Slim] 1 each MC AD 11/30/17 [History] Hydrocortisone [Anusol-Hc] 30 gm RC BID #1 cream..g. 12/03/17 [Rx] Levothyroxine [Synthroid] 150 mcg PO QAM #30 tablet 12/03/17 [Rx] Metoprolol Succinate [Toprol Xl] 25 mg PO QDPC #30 tab.er.24h 12/03/17 [Rx] Furosemide [Lasix] 60 mg PO BID 30 Days #60 tablet 05/18/18 [Rx] Allergies/Adverse Reactions: 3 Allergy/AdvReac Type Severity Reaction Status Date / Time ciprofloxacin [From Cipro] Allergy Severe Anaphylaxis Verified 11/30/17 10:59 clarithromycin [From Biaxin] Allergy Severe Hives Verified 11/30/17 10:59 clonidine Allergy Severe Anaphylaxis Verified 11/30/17 10:59 levofloxacin [From Levaquin] Allergy Severe Anaphylaxis Verified 11/30/17 10:59 Warfarin Allergy Severe Difficulty Verified 11/30/17 10:59 Breathing Cefaclor Allergy Anaphylaxis Verified 11/30/17 10:59 codeine Allergy Rash Verified 11/30/17 10:59 Ertapenem [From Invanz] Allergy Rash Verified 05/11/18 17:21 Hydralazine Allergy Hives Verified 11/30/17 10:59 sulfamethoxazole Allergy Hives Verified 11/30/17 10:59 [From Bactrim] trimethoprim [From Bactrim] Allergy Hives Verified 11/30/17 10:59 tiotropium AdvReac Severe Blurry Verified 11/30/17 10:59 [From Spiriva with Vision HandiHaler] acarbose AdvReac Blurry Verified 11/30/17 10:59 Vision atorvastatin [From Lipitor] AdvReac Muscle Pain Verified 11/30/17 10:59 fenofibrate [From Tricor] AdvReac Muscle Pain Verified 11/30/17 10:59 rivaroxaban [From Xarelto] AdvReac Gastrointestinal Verified 11/30/17 10:59 Upset Certification: Further, I certify that my clinical findings support that this patient is homebound (i.e. absences from home require considerable and taxing effort and are for medical reasons or orthodoxy services or infrequently or short duration when for other reasons) because: Homebound Reason: Patient requires assistance of a person or device to safely leave home Attestation: My signature below is to certify that this patient is under my care and that I, or nurse practitioner, or a physician's physician assistant working with me, has a face-to -face encounter with this patient.
== END 2018-05-18 14:40 | disposition home health service (06) | DRG 291 ==
LOC: EMEROOARM 14:22 → 2NENU 14:22 → SUATTDRO 18:22
PROVIDERS: ADMIT Internal Medicine; ATTEND Internal Medicine

== ENCOUNTER 2018-07-11 09:13 | Inpatient (IN) ==
--- NOTE | 2018-07-11 09:30 | Emergency Department Note ---
Disposition Clinical Impression: COPD exacerbation CHF exacerbation Qualifiers: Heart failure type: unspecified Qualified Code(s): I50.9 - Heart failure, unspecified Disposition: Admitted As Inpatient Condition: Fair Referrals: Lang Jarvis DO [Primary Care Provider] - Forms: ED Satisfaction Letter Time of Disposition: 11:25 SOB HPI - General Chief Complaint: ED Shortness of Breath/Dyspnea Stated Complaint: "sob,legs swelling" Time Seen by Provider: 07/11/18 09:29 Source: patient Mode of arrival: ambulatory Limitations: no limitations Nursing Notes Reviewed: Yes Vital Signs Reviewed: Yes - History of Present Illness Patient is a 62-year-old female past medical history of CAD, previous CA, COPD, CHF, CKD. She currently takes Lasix 60 mg twice daily. She also takes home Symbicort twice daily along with albuterol as needed, wears 3 L nasal cannula oxygen chronically. Presents today from home due to concern for shortness of breath. She states that around 3 days ago, she noticed some increased shortness of breath. She reports a weight gain of 7 pounds over the past 3 days. She is also noticed increased swelling of her bilateral lower extremities. She does have home health due to respiratory issues and has had home health wrap her legs daily to help with the swelling. Denies any chest pain. She does admit to an increase in sputum production, change in color of the sputum above her baseline with COPD. Denies any other nausea, vomiting, fevers, diarrhea, abdominal pain, dysuria, hematuria. Denies any signs of cellulitis or any open wounds of bilateral lower extremity. - Related Data Home Medications Medication Instructions Recorded Confirmed Albuterol Neb [Proventil Neb] 2.5 mg IH Q4H 02/07/16 05/11/18 Albuterol Sulfate [Proventil Hfa] 2 puff IH Q4H PRN 02/07/16 05/11/18 Pregabalin [Lyrica] 75 mg PO TID 02/07/16 05/11/18 B12/Levomefolate Calcium/B-6 1 tab PO QPM 02/29/16 05/11/18 [Foltx Tablet] Cholecalciferol (Vitamin D3) 5,000 unit PO QAM 03/27/16 05/11/18 [Dialyvite Vitamin D] Omeprazole 40 mg PO QPM 03/27/16 05/11/18 Acetaminophen [Tylenol] 500 mg PO Q6HR PRN 06/12/16 05/11/18 Oxygen 4 l NS AD 06/12/16 05/11/18 Febuxostat [Uloric] 80 mg PO DAILY 09/10/16 05/11/18 Atorvastatin Calcium [Lipitor] 20 mg PO HS 01/02/17 05/11/18 Aspirin [Lo-Dose Aspirin EC] 81 mg PO DAILY 11/09/17 05/11/18 FLUoxetine HCl [Prozac] 20 mg PO DAILY 11/09/17 05/11/18 Montelukast [Singulair] 10 mg PO DAILY 11/09/17 05/11/18 Subcutaneous Insulin Pump [T:Slim] 1 each MC AD 11/30/17 05/11/18 Previous Rx's Medication Instructions Recorded Melatonin 10 mg PO HS #30 capsule 02/11/16 Budesonide/Formoterol 160/4.5 2 puff IH BIDR 30 Days inhaler 03/03/16 [Symbicort 160/4.5] Amiodarone [Cordarone] 200 mg PO DAILY #30 tablet 04/11/16 Lisinopril [Zestril] 40 mg PO DAILY #30 tablet 10/16/16 amLODIPine [Norvasc] 10 mg PO DAILY #30 tablet 10/16/16 Docusate [Colace] 100 mg PO BID PRN #60 capsule 01/03/17 Hydrocortisone [Anusol-Hc] 30 gm RC BID #1 cream..g. 12/03/17 Levothyroxine [Synthroid] 150 mcg PO QAM #30 tablet 12/03/17 Metoprolol Succinate [Toprol Xl] 25 mg PO QDPC #30 tab.er.24h 12/03/17 Furosemide [Lasix] 60 mg PO BID 30 Days #60 tablet 05/18/18 Allergies Allergy/AdvReac Type Severity Reaction Status Date / Time ciprofloxacin [From Cipro] Allergy Severe Anaphylaxis Verified 07/11/18 09:28 clarithromycin [From Biaxin] Allergy Severe Hives Verified 07/11/18 09:28 clonidine Allergy Severe Anaphylaxis Verified 07/11/18 09:28 levofloxacin [From Levaquin] Allergy Severe Anaphylaxis Verified 07/11/18 09:28 Warfarin Allergy Severe Difficulty Verified 07/11/18 09:28 Breathing Cefaclor Allergy Anaphylaxis Verified 07/11/18 09:28 codeine Allergy Rash Verified 07/11/18 09:28 Ertapenem [From Invanz] Allergy Rash Verified 07/11/18 09:28 Hydralazine Allergy Hives Verified 07/11/18 09:28 sulfamethoxazole Allergy Hives Verified 07/11/18 09:28 [From Bactrim] trimethoprim [From Bactrim] Allergy Hives Verified 07/11/18 09:28 tiotropium AdvReac Severe Blurry Verified 07/11/18 09:28 [From Spiriva with Vision HandiHaler] acarbose AdvReac Blurry Verified 07/11/18 09:28 Vision atorvastatin [From Lipitor] AdvReac Muscle Pain Verified 07/11/18 09:28 fenofibrate [From Tricor] AdvReac Muscle Pain Verified 07/11/18 09:28 rivaroxaban [From Xarelto] AdvReac Gastrointestinal Verified 07/11/18 09:28 Upset All systems ED: reviewed and negative except as stated. Constitutional: Denies: fever Cardiovascular: Denies: chest pain Respiratory: Reports: cough, dyspnea, sputum production. Denies: wheezes Gastrointestinal: Denies: abdominal pain, nausea, vomiting, diarrhea Neurological: Denies: headache, weakness, numbness, paresthesias Past Medical History - Past Medical History Attestation: Yes The following information was validated with the patient. Source: patient Medical history: Reports: atrial fibrillation, CHF, COPD, coronary artery d isease, DVT, diabetes, GI bleed, hyperlipidemia, hypertension, myocardial infarction, renal disease, thyroid disease Surgical history: Reports: angioplasty/stent, other Psychiatric history: Reports: anxiety, depression BANQUET COORDINATOR history: Reports: no BANQUET COORDINATOR history - Social History Smoking Status: Former smoker Smokeless Tobacco Status: No Alcohol use: Reports: none Drug use: Reports: none Physical Exam - General Limitations: no limitations General appearance: alert, in no apparent distress - Head Head exam: atraumatic, normocephalic, normal inspection - Eye Eye exam: Present: normal appearance, PERRL, EOMI - ENT ENT exam: normal exam, normal oropharynx, mucous membranes moist - Neck Neck exam: Present: normal inspection, full ROM, trachea midline - Chest Chest inspection: Present: normal inspection, symmetric chest wall rise - Respiratory Respiratory exam: Present: other (Decreased breath sounds throughout. No overt wheezes, rhonchi, crackles heard. Exam limited due to body habitus.) - Cardiovascular Cardiovascular exam: Present: regular rate, normal rhythm, normal heart sounds - Abdominal Exam Abdominal exam: Present: soft, Non-Tender, other (Obese). Absent: tenderness, distention, guarding, rebound, rigidity - Extremities Exam Extremities exam: Present: other (Lower extremities were wrapped in gauze and Rivera wraps. These were removed. No evidence of any lesions, open sores, erythema, signs of cellulitis. Venous stasis dermatitis present on bilateral lower extremity. No calf tenderness. Pitting edema of bilateral lower extremities from knees to ankles. +1 over 4 DP and PT pulses bilaterally). Absent: calf tenderness - Neurological Exam Neurological exam: Present: alert, oriented X3 - Psychiatric Psychiatric exam: Present: normal affect, normal mood - Skin Skin exam: Present: warm, dry, intact, normal color Course Course Narrative: Patient 91% on 3 L nasal cannula oxygen. She is mildly short of breath. Body habitus limits the physical exam. No overt wheezes or crackles heard but there was decreased aeration throughout. She does have swelling of the bilateral lower extremity but no signs of any cellulitis or bands at this time. We will perform EKG, chest x-ray, basic blood work, troponin, BNP. Patient will likely require admission for further care. 11:23 chest x-ray showed no significant change in pulmonary edema from previous chest x-ray. Labs show elevated creatinine level above baseline. Troponin negative. BNP elevated 100 from 700. We gave a trial of DuoNeb to see if this would help with her shortness of breath. She has no improvement in her molina bjective shortness breath at this time. Does not feel safe with going home at this time. Patient is likely a mixed COPD/CHF exacerbation. Patient was also 91% on her 3 L nasal cannula oxygen on presentation. We will give steroids and admit the patient for further care. Patient will need to have nephrology evaluation in conjunction with managing her Lasix due to recent worsening of her creatinine. Chest X-Ray 07/11/18 09:29 IMPRESSION: No significant change in pulmonary edema and right-sided pleural effusion. D/ / Quinten Ryan MD / Quinten Ryan MD Interpreting Provider: Quinten Ryan MD Vital Signs Temperature 97.9 F 07/11/18 09:26 Pulse Rate 48 07/11/18 09:26 Respiratory Rate 20 07/11/18 09:26 Blood Pressure 133/43 07/11/18 09:26 O2 Sat by Pulse Oximetry 91 07/11/18 09:26 Temperature 97.9 F 07/11/18 09:33 Pulse Rate 48 07/11/18 09:33 Respiratory Rate 20 07/11/18 10:50 Blood Pressure 133/43 07/11/18 09:33 O2 Sat by Pulse Oximetry 100 07/11/18 10:50 Oxygen Delivery Oxygen Delivery Nasal Cannula Shortness of Breath/Dyspnea - MDM Narrative Medical decision making narrative: Patient 91% on 3 L nasal cannula oxygen. She is mildly short of breath. Body habitus limits the physical exam. No overt wheezes or crackles heard but there was decreased aeration throughout. She does have swelling of the bilateral lower extremity but no signs of any cellulitis or bands at this time. We will perform EKG, chest x-ray, basic blood work, troponin, BNP. Patient will likely require admission for further care. 11:23 chest x-ray showed no significant change in pulmonary edema from previous chest x-ray. Labs show elevated creatinine level above baseline. Troponin negative. BNP elevated 100 from 700. We gave a trial of DuoNeb to see if this would help with her shortness of breath. She has no improvement in her subjective shortness breath at this time. Does not feel safe with going home at this time. Patient is likely a mixed COPD/CHF exacerbation. Patient was also 91% on her 3 L nasal cannula oxygen on presentation. We will give steroids and admit the patient for further care. Patient will need to have nephrology evaluation in conjunction with managing her Lasix due to recent worsening of her creatinine. - Medical Records Medical records reviewed: Yes I reviewed the patient's medical records. - Lab Data Lab results reviewed: Yes I reviewed the patient's lab results. Result diagrams: 07/11/18 09:39 07/11/18 09:39 Lab Results 07/11/18 07/11/18 07/11/18 Range/Units 09:39 09:39 09:49 WBC 7.4 (4.3-11.1) K/mcL RBC 3.03 L (3.82-4.97) M/mcL Hgb 8.1 L (11.5-15.4) g/dL Hct 26.6 L (35.3-44.9) % MCV 87.8 (83.0-100.0) fL MCH 26.7 L (28.0-33.3) pg MCHC 30.5 L (31.6-35.5) g/dL RDW 16.6 H (11.5-14.5) % Plt Count 188 (140-400) K/mcL MPV 11.6 (9.4-12.4) fL Immature Gran % 0.4 (0-4) % Seg Neutrophils % 74.3 % Lymphocytes % 13.4 % Monocytes % 6.9 % Eosinophils % 4.7 % Basophils % 0.3 % Neutrophils # 5.5 (1.6-8.9) K/mcL Lymphocytes # 1.0 (0.6-4.6) K/mcL Monocytes # 0.5 (0.0-1.3) K/mcL Eosinophils # 0.4 (0.0-0.6) K/mcL Basophils # 0.0 (0.0-0.2) K/mcL Sodium 135 L (136-145) mEq/L Potassium 4.3 (3.5-5.1) mEq/L Chloride 97 L (98-107) mEq/L Carbon Dioxide 30 H (23-29) mEq/L BUN 56 H (8-23) mg/dL Creatinine 1.79 H (0.60-1.20) mg/dL Est GFR ( Amer) 35 L (> 60) Est GFR (Non-Af Amer) 29 L (> 60) BUN/Creatinine Ratio 31 H (6-26) Glucose 105 (70-105) mg/dL Calculated Osmolality 296 (280-300) Calcium 9.7 (8.6-10.3) mg/dL Troponin I < 0.03 (< 0.04) ng/mL B-Natriuretic Peptide 1109 H (Less than 100) pg/mL - Radiology Data Radiology results reviewed: Yes I reviewed the patient's radiology results. Chest X-Ray 07/11/18 09:29 IMPRESSION: No significant change in pulmonary edema and right-sided pleural effusion. D/ / Quinten Ryan MD / Quinten Ryan MD Interpreting Provider: Quinten Ryan MD - EKG Data EKG attestation: Yes I reviewed and interpreted this EKG. EKG results narrative: 07/11/18 at 09:47 . Sinus bradycardia. Rate 48. ME 234. QRS 142. QTC 470. Left axis deviation. No acute ST elevation or depression. Bundle branch block present in V2, V3. S.B.A.R. - S.B.A.R. Situation: Demographics, MOA Background: Presenting Complaint, Relevant PMH, Meds, & Allergies Assessment: Vital Signs, Course and respsone to treatment, Patient/Family Expectation, Pertinant Lab Results Recommendation: Barrier(s) to disposition, Recommendation based on pending studies, treatments, or consults S.B.A.R. Report Given to: Dr. art
--- NOTE | 2018-07-11 09:51 | Emergency Department Note ---
Disposition Clinical Impression: COPD exacerbation, CHF exacerbation Disposition: Admitted As Inpatient Condition: Fair Referrals: Lang Jarvis DO [Primary Care Provider] - Forms: ED Satisfaction Letter General Adult HPI - General Chief complaint: ED Shortness of Breath/Dyspnea Stated complaint: "sob,legs swelling" Time Seen by Provider: 07/11/18 09:29 Source: patient Mode of arrival: ambulatory Limitations: no limitations Nursing Notes Reviewed: Yes Vital Signs Reviewed: Yes - History of Present Illness Pain Scale: 10 - Related Data Home Medications Medication Instructions Recorded Confirmed Albuterol Neb [Proventil Neb] 2.5 mg IH Q4H 02/07/16 07/11/18 Albuterol Sulfate [Proventil Hfa] 2 puff IH Q4H PRN 02/07/16 07/11/18 Pregabalin [Lyrica] 75 mg PO TID 02/07/16 07/11/18 Cholecalciferol (Vitamin D3) 5,000 unit PO QAM 03/27/16 07/11/18 [Dialyvite Vitamin D] Omeprazole 40 mg PO QPM 03/27/16 07/11/18 Acetaminophen [Tylenol] 500 mg PO Q6HR PRN 06/12/16 07/11/18 Oxygen 4 l NS AD 06/12/16 07/11/18 Febuxostat [Uloric] 80 mg PO DAILY 09/10/16 07/11/18 Atorvastatin Calcium [Lipitor] 20 mg PO HS 01/02/17 07/11/18 Aspirin [Lo-Dose Aspirin EC] 81 mg PO DAILY 11/09/17 07/11/18 FLUoxetine HCl [Prozac] 20 mg PO DAILY 11/09/17 07/11/18 Montelukast [Singulair] 10 mg PO DAILY 11/09/17 07/11/18 Subcutaneous Insulin Pump [T:Slim] 1 each MC AD 11/30/17 07/11/18 Furosemide [Lasix] 40 mg PO BID 07/11/18 07/11/18 Lactulose 10 gm PO TID 07/11/18 07/11/18 Levothyroxine Sodium [Levoxyl] 175 mcg PO QAM 07/11/18 07/11/18 Previous Rx's Medication Instructions Recorded Melatonin 10 mg PO HS #30 capsule 02/11/16 Budesonide/Formoterol 160/4.5 2 puff IH BIDR 30 Days inhaler 03/03/16 [Symbicort 160/4.5] Amiodarone [Cordarone] 200 mg PO DAILY #30 tablet 04/11/16 Lisinopril [Zestril] 40 mg PO DAILY #30 tablet 10/16/16 amLODIPine [Norvasc] 10 mg PO DAILY #30 tablet 10/16/16 Metoprolol Succinate [Toprol Xl] 25 mg PO QDPC #30 tab.er.24h 12/03/17 Allergies Allergy/AdvReac Type Severity Reaction Status Date / Time ciprofloxacin [From Cipro] Allergy Severe Anaphylaxis Verified 07/11/18 09:28 clarithromycin [From Biaxin] Allergy Severe Hives Verified 07/11/18 09:28 clonidine Allergy Severe Anaphylaxis Verified 07/11/18 09:28 levofloxacin [From Levaquin] Allergy Severe Anaphylaxis Verified 07/11/18 09:28 Warfarin Allergy Severe Difficulty Verified 07/11/18 09:28 Breathing Cefaclor Allergy Anaphylaxis Verified 07/11/18 09:28 codeine Allergy Rash Verified 07/11/18 09:28 Ertapenem [From Invanz] Allergy Rash Verified 07/11/18 09:28 Hydralazine Allergy Hives Verified 07/11/18 09:28 sulfamethoxazole Allergy Hives Verified 07/11/18 09:28 [From Bactrim] trimethoprim [From Bactrim] Allergy Hives Verified 07/11/18 09:28 tiotropium AdvReac Severe Blurry Verified 07/11/18 09:28 [From Spiriva with Vision HandiHaler] acarbose AdvReac Blurry Verified 07/11/18 09:28 Vision atorvastatin [From Lipitor] AdvReac Muscle Pain Verified 07/11/18 09:28 fenofibrate [From Tricor] AdvReac Muscle Pain Verified 07/11/18 09:28 rivaroxaban [From Xarelto] AdvReac Gastrointestinal Verified 07/11/18 09:28 Upset Constitutional: Denies: fever Cardiovascular: Denies: chest pain Respiratory: Reports: cough, dyspnea, sputum production. 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: no MANUFACTURING SYSTEMS ENGINEER history - Social History Smoking Status: Former smoker Smokeless Tobacco Status: No Alcohol use: Reports: none Drug use: Reports: none Physical Exam - General Limitations: no limitations General appearance: alert, in no apparent distress Course Vital Signs Temperature 97.9 F 07/11/18 09:26 Pulse Rate 48 07/11/18 09:26 Respiratory Rate 20 07/11/18 09:26 Blood Pressure 133/43 07/11/18 09:26 O2 Sat by Pulse Oximetry 91 07/11/18 09:26 Temperature 97.9 F 07/11/18 09:33 Pulse Rate 47 07/11/18 11:30 Respiratory Rate 18 07/11/18 11:30 Blood Pressure 129/45 07/11/18 11:30 O2 Sat by Pulse Oximetry 99 07/11/18 11:30 Oxygen Delivery Oxygen Delivery Nasal Cannula Medical Decision Making - [facility] Narrative Medical decision making narrative: Chest X-Ray 07/11/18 09:29 IMPRESSION: No significant change in pulmonary edema and right-sided pleural effusion. D/ / Quinten Ryan MD / Quinten Ryan MD Interpreting Provider: Quinten Ryan MD 1223 hrs.: Patient's still getting hypoxic even after the treatments here. Were in a bring her into the hospital. I think some of this is decompensation. As her creatinine is increased, her hemoglobin is decreased. And her underlying COPD and CHF. She is in agreement with this plan. - Lab Data Result diagrams: 07/11/18 09:39 07/11/18 09:39 Lab Results 07/11/18 07/11/18 07/11/18 Range/Units 09:39 09:39 09:49 WBC 7.4 (4.3-11.1) K/mcL RBC 3.03 L (3.82-4.97) M/mcL Hgb 8.1 L (11.5-15.4) g/dL Hct 26.6 L (35.3-44.9) % MCV 87.8 (83.0-100.0) fL MCH 26.7 L (28.0-33.3) pg MCHC 30.5 L (31.6-35.5) g/dL RDW 16.6 H (11.5-14.5) % Plt Count 188 (140-400) K/mcL MPV 11.6 (9.4-12.4) fL Immature Gran % 0.4 (0-4) % Seg Neutrophils % 74.3 % Lymphocytes % 13.4 % Monocytes % 6.9 % Eosinophils % 4.7 % Basophils % 0.3 % Neutrophils # 5.5 (1.6-8.9) K/mcL Lymphocytes # 1.0 (0.6-4.6) K/mcL Monocytes # 0.5 (0.0-1.3) K/mcL Eosinophils # 0.4 (0.0-0.6) K/mcL Basophils # 0.0 (0.0-0.2) K/mcL Sodium 135 L (136-145) mEq/L Potassium 4.3 (3.5-5.1) mEq/L Chloride 97 L (98-107) mEq/L Carbon Dioxide 30 H (23-29) mEq/L BUN 56 H (8-23) mg/dL Creatinine 1.79 H (0.60-1.20) mg/dL Est GFR ( Amer) 35 L (> 60) Est GFR (Non-Af Amer) 29 L (> 60) BUN/Creatinine Ratio 31 H (6-26) Glucose 105 (70-105) mg/dL Calculated Osmolality 296 (280-300) Calcium 9.7 (8.6-10.3) mg/dL Troponin I < 0.03 (< 0.04) ng/mL B-Natriuretic Peptide 1109 H (Less than 100) pg/mL Critical Care Time Critical Care Time: Yes Total Critical Care Time: 20 Attestation: Excluding any separately billable procedures. Attestation Statement - Attestation Attestation: This documentation is done with the assistance of Dragon dictation. Despite eff orts made to ensure accuracy, there may be inaccuracies in hard tile setter or spelling and typographical errors. I examined this patient and my medical decision-making was reviewed with the Resident Physician. I agree with the documented findings, disposition and treatment plan as described except to the extent set forth below. Patient seen and evaluated on arrival with Dr. Swan and myself, I agree with his evaluation and management plan, I supervised care the patient's stay. Patient's had a weight gain and also had increased dyspnea and swelling in her legs. History of CHF. On Lasix now twice a day of 60 mg. No chest pain. We will order a workup and reassess. She sees nephrology also.
[2018-07-11 10:01] LABS: Basophils % 0.3 %; Eosinophils # 0.4 K/mcL (0.0-0.6); Eosinophils % 4.7 %; Hematocrit 26.6 % (35.3-44.9); Hemoglobin 8.1 g/dL (11.5-15.4); Immature Granulocytes % 0.4 % (0-4); Lymphocytes % 13.4 %; Mean Corpuscular HGB Conc 30.5 g/dL (31.6-35.5); Mean Corpuscular Hemoglobin 26.7 pg (28.0-33.3); Mean Corpuscular Volume 87.8 fL (83.0-100.0); Mean Platelet Volume 11.6 fL (9.4-12.4); Monocytes # 0.5 K/mcL (0.0-1.3); Monocytes % 6.9 %; Neutrophils # 5.5 K/mcL (1.6-8.9); Platelet Count 188 K/mcL (140-400); Red Blood Count 3.03 M/mcL (3.82-4.97); Red Cell Distribution Width 16.6 % (11.5-14.5); Segmented Neutrophils % 74.3 %
[2018-07-11 10:25] LABS: BUN/Creatinine Ratio 31 (6-26); Blood Urea Nitrogen 56 mg/dL (8-23); Calcium 9.7 mg/dL (8.6-10.3); Carbon Dioxide 30 mEq/L (23-29); Chloride 97 mEq/L (98-107); Glucose 105 mg/dL (70-105); Osmolality,Calculated 296 (280-300); Potassium 4.3 mEq/L (3.5-5.1); Sodium 135 mEq/L (136-145); eGFR For Non-African Americans 29 (> 60)
[2018-07-11 10:26] LABS: Troponin I < 0.03 ng/mL (< 0.04)
[2018-07-11] MEDS ORDERED: Ipratropium/Albuterol Neb 3 ML IH ONE (10:36)
[2018-07-11] MEDS ORDERED: methylPREDNISolone 125 MG/2 ML VIAL IVP ONE (11:21)
[2018-07-11] MEDS ORDERED: Naloxone 0.4 MG/ML INJ IVP PRN (11:58)
[2018-07-11] MEDS ORDERED: Ipratropium/Albuterol Neb 3 ML IH PRN (12:07)
--- NOTE | 2018-07-11 12:24 | Internal Med History&Physical ---
Date of Encounter: 07/11/18 Time of Encounter: 12:22 Internal Medicine - H&P: HPI Chief complaint: leg swelling Admitted From: Home Plans for Post Hospital Care: Home History of present illness: Ms. Feliciano is a 62 year old female history of hypertension, diabetes, hyperlipidemia, coronary artery disease with stenting 2 last in 2016, chronic diastolic CHF, paroxysmal A. fib, CK-MB, hypothyroidism, COPD, OLIVER, history of DVT not on anticoagulation due to GI bleed, [place] and morbid obesity Presented to the emergency department with complaint of bilateral lower extremity swelling. As per patient swelling started about 2 days ago and has progressively worsened to the point that she cannot ambulate any longer. Swelling is located below the knee and involves the feet. She does report she has history of blood clots however is not on anticoagulations currently. Her swelling is also associated with bilateral leg pain, she denies calf tenderness she denies prolonged immobilization however she was unable to ambulate the day before admission secondary to leg pain. Ambulating aggravates the pain and laying down and elevating her feet alleviates her pain and swelling. She has home health aide who has been regularly visiting her and has been wrapping her legs which helps the swelling somewhat however for the past few days wrapping her legs have not helped her swelling. In addition to above she also complains of shortness of breath for the past 2-3 days which have for progressively worsened. Her shortness of breath is associated with wheezing, and occasional dry cough. She denies sick contacts, fever, chills and has received her influenza and pneumonia vaccination this year. She reports that she had similar symptoms in May 2018 and had 1 L of fluid removed from her right lung. She does use her home oxygen, however has not been compliant to her BiPAP as her mask is malfunctioning and she has not been able to replace the mask. She denies chest pain, palpitations, N/v/D, recent falls, syncope, LOC, head trauma. in the ED she was found to have elevated BNP, right-sided pleural effusion, bi lateral lower extremity edema, and in COPD exacerbation. She was endorsed for admission for management of above. Past Med Surg Social Fam HX - Past Medical History Medical history: atrial fibrillation, CHF, COPD, coronary artery disease, DVT, diabetes, GI bleed, hyperlipidemia, hypertension, myocardial infarction, renal disease, thyroid disease Additional medical history: hemrhoids,gout Psychiatric history: anxiety, depression - Past Surgical History Surgical History: angioplasty/stent, other Additional surgical history: 1 cardiac stents. right leg procedure for DVT - Social History Smoking Status: Former smoker Smokeless Tobacco Status: No Alcohol use: none Drug use: none - Family History Mother Family Member Ethnicity: Non- Living Status: Still Living Hx Family Cardiac Disorders: Yes Hx Family Endocrine Disorder: Yes (DM) Hx Family Neurologic Disorders: Yes (Dementia) Brother Family Member Ethnicity: Non- Living Status: Hx Family Cancer: Yes (colon cancer) Son Family Member Ethnicity: Non- Living Status: Still Living Hx Family GI Disorders: Yes (high grade dysplasia polyps) Father Adopted: No Family Member Ethnicity: Non- Living Status: Hx Family Cardiac Disorders: Yes (heart attack) Hx Family Respiratory Disorders: Yes (breathing issues) Hx Family Cancer: No Hx Family GI Disorders: No Hx Family Endocrine Disorder: No Hx Family Neuromuscular Disorders: No Hx Family Neurologic Disorders: No Hx Family HEENT Disorders: No Hx Family Autoimmune Disorders: No Internal Medicine - H&P: Meds Albuterol Neb [Proventil Neb] 2.5 mg IH Q4H 02/07/16 [History] Albuterol Sulfate [Proventil Hfa] 2 puff IH Q4H PRN 02/07/16 [History] Pregabalin [Lyrica] 75 mg PO TID 02/07/16 [History] Melatonin 10 mg PO HS #30 capsule 02/11/16 [Rx] Budesonide/Formoterol 160/4.5 [Symbicort 160/4.5] 2 puff IH BIDR 30 Days inhaler 03/03/16 [Rx] Cholecalciferol (Vitamin D3) [Dialyvite Vitamin D] 5,000 unit PO QAM 03/27/16 [History] Omeprazole 40 mg PO QPM 03/27/16 [History] Amiodarone [Cordarone] 200 mg PO DAILY #30 tablet 04/11/16 [Rx] Acetaminophen [Tylenol] 500 mg PO Q6HR PRN 06/12/16 [History] Oxygen 4 l NS AD 06/12/16 [History] Febuxostat [Uloric] 80 mg PO DAILY 09/10/16 [History] Lisinopril [Zestril] 40 mg PO DAILY #30 tablet 10/16/16 [Rx] amLODIPine [Norvasc] 10 mg PO DAILY #30 tablet 10/16/16 [Rx] Atorvastatin Calcium [Lipitor] 20 mg PO HS 01/02/17 [History] Aspirin [Lo-Dose Aspirin EC] 81 mg PO DAILY 11/09/17 [History] FLUoxetine HCl [Prozac] 20 mg PO DAILY 11/09/17 [History] Montelukast [Singulair] 10 mg PO DAILY 11/09/17 [History] Subcutaneous Insulin Pump [T:Slim] 1 each MC AD 11/30/17 [History] Metoprolol Succinate [Toprol Xl] 25 mg PO QDPC #30 tab.er.24h 12/03/17 [Rx] Furosemide [Lasix] 40 mg PO BID 07/11/18 [History] Lactulose [Enulose] 10 gm PO TID 07/11/18 [History] Levothyroxine Sodium [Levoxyl] 175 mcg PO QAM 07/11/18 [History] Allergy/AdvReac Type Severity Reaction Status Date / Time ciprofloxacin [From Cipro] Allergy Severe Anaphylaxis Verified 07/11/18 09:28 clarithromycin [From Biaxin] Allergy Severe Hives Verified 07/11/18 09:28 clonidine Allergy Severe Anaphylaxis Verified 07/11/18 09:28 levofloxacin [From Levaquin] Allergy Severe Anaphylaxis Verified 07/11/18 09:28 Warfarin Allergy Severe Difficulty Verified 07/11/18 09:28 Breathing Cefaclor Allergy Anaphylaxis Verified 07/11/18 09:28 codeine Allergy Rash Verified 07/11/18 09:28 Ertapenem [From Invanz] Allergy Rash Verified 07/11/18 09:28 Hydralazine Allergy Hives Verified 07/11/18 09:28 sulfamethoxazole Allergy Hives Verified 07/11/18 09:28 [From Bactrim] trimethoprim [From Bactrim] Allergy Hives Verified 07/11/18 09:28 tiotropium AdvReac Severe Blurry Verified 07/11/18 09:28 [From Spiriva with Vision HandiHaler] acarbose AdvReac Blurry Verified 07/11/18 09:28 Vision atorvastatin [From Lipitor] AdvReac Muscle Pain Verified 07/11/18 09:28 fenofibrate [From Tricor] AdvReac Muscle Pain Verified 07/11/18 09:28 rivaroxaban [From Xarelto] AdvReac Gastrointestinal Verified 07/11/18 09:28 Upset All Systems PM: review of systems was performed and is negative for pertinent findings except as documented above in the HPI. - Constitutional Vitals: Temp Pulse Resp BP Pulse Ox 97.9 F 47 18 129/45 99 07/11/18 09:33 07/11/18 11:30 07/11/18 11:30 07/11/18 11:30 07/11/18 11:30 Exam: General: Patient is alert, oriented, in mild distress speaks full sentences Morbidly obese Head: atraumatic, normocephalic, Eye: normal appearance, PERRL, no scleral icterus, no conjunctival injection ENT: mucous membranes moist, normal external ear exam Neck: normal inspection, trachea midline, full ROM, no carotid bruits Chest: normal inspection, symmetric chest rise Respiratory: Decreased breath sounds secondary to body habitus, Good respiratory effort. Near absent breath sounds in the right posterior lung field, crackles and rails in the left posterior lung field Cardiovascular: Bradycardic. s1 and s2 No clicks, rubs, gallops, or murmors. Abdomen: Bowel sounds present normoactive x-4 quadrants. Abdomen is soft, nondistended. no Epigastric tenderness. No guarding or rebound. No organomegaly noted, obese musculoskeletal: Spontaneously moving all extremities. Has +2 edema of the lower extremities, no calf tenderness, erythema above the ankle up to the knees bilaterally Skin: warm, dry, intact. Neuro: Alert and oriented x4. Sensation light touch intact. Cranial nerves 2- 12 is intact. No focal deficit Psych: Patient's affect is normal Internal Med - H&P Results - Labs CBC & Chem 7: 07/11/18 09:39 07/11/18 09:39 Labs: Short CBC 07/11/18 Range/Units 09:39 WBC 7.4 (4.3-11.1) K/mcL Hgb 8.1 L (11.5-15.4) g/dL Hct 26.6 L (35.3-44.9) % Plt Count 188 (140-400) K/mcL Neutrophils # 5.5 (1.6-8.9) K/mcL BMP 11/05/18 09:39 Sodium 135 L Potassium 4.3 Chloride 97 L Carbon Dioxide 30 H BUN 56 H Creatinine 1.79 H Glucose 105 Calcium 9.7 Cardiac Enzymes 07/11/18 Range/Units 09:39 Troponin I < 0.03 (< 0.04) ng/mL - EKG Data -: EKG Interpreted by Myself (sinus bradycardia, LBBB, 1st degree heart block ) - EKG Data Prior EKG available for review: yes When compared to previous EKG: there are significant changes - Impressions ITS Impressions Chest X-Ray 07/11/18 09:29 IMPRESSION: No significant change in pulmonary edema and right-sided pleural effusion. D/ / Quinten Ryan MD / Quinten Ryan MD Interpreting Provider: Quinten Ryan MD - Assessment and plan (1) Acute on chronic diastolic heart failure with preserved ejection fraction Current Visit: Yes Status: Acute Assessment and plan: Started on Lasix 40 mg IV twice a day Echocardiogram B Blockers and amiodarone on hold secondary to bradycardia Continue with amlodipine continue Statin and ASA Cardiology was consulted- Discussed with Dr. nelson who agrees with Above - follow rest of recommendations TSH Last heart catheterization February 2016 showed mid LAD 20-30%, mid circumflex 30%, status post BMS to OM1 90% lesion, proximal RCA 20% TTE in 10/2017 Impressions: LVEF 55-60%. Despite the use of Definity, not all LV segments were well visualized. Grossly, the left ventricle is normal in chamber size, wall thickness, and function. Moderate left ventricular diastolic dysfunction. Right ventricle was not well visualized. Unable to estimate RVSP due to lack of TR jet. Valves were not well visualized. No obvious valvular dysfunction noted. (2) Acute exacerbation of chronic obstructive pulmonary disease (COPD) Current Visit: Yes Status: Acute Assessment and plan: Was given Solu-Medrol 125 mg in the ED will continue with 40 mg every 8 hours IV doxycycline Sputum cultures, urine antigens, respiratory viral panel Duo nebs every 4 hours We will continue home inhalers Oxygen via nasal cannula BiPAP at night and when necessary for respiratory distress (3) Bradycardia Current Visit: Yes Status: Acute Assessment and plan: has 1st degree AV block We will hold beta blockers and amiodarone Atropine at bedside for symptomatic bradycardia <35 Cardiology was consulted- Discussed with Dr. nelson who agrees with Above Cardiac monitoring cortisol level to rule out Adrenal insufficiency (4) New onset left bundle branch block (LBBB) Current Visit: Yes Status: Acute Assessment and plan: new LBBB on todays EKG troponin negative - currently chest pain free will follow troponins and EKG Q6H BB and amiodarone on hold for bradycardia Discussed with Dr. nelson who agrees with Above TTE (5) Lower extremity edema Current Visit: Yes Status: Acute Assessment and plan: DVT study elevate LE CPK continue with lasix as above Doubt cellulitis most likely from venous stasis but if she develops fever and leukocytosis with worsening erythema consider CT of steh LE and ID consult (6) ARF (acute renal failure) Current Visit: Yes Status: Acute Assessment and plan: Nephrology was consulted in the ED We will continue with Lasix 40 mg IV twice a day, if worsening creatinine c onsider holding the Lasix Strict intake and output Renal ultrasound UA Qualifiers: Acute renal failure type: unspecified Qualified Code(s): N17.9 - Acute kidney failure, unspecified (7) Pleural effusion Current Visit: Yes Status: Acute Assessment and plan: As had previous right-sided pleural effusion where she had a thoracocentesis performed on 05/11/18 and 725 mL of fluid was removed IR consulted for thoracocentesis Follow thoracocentesis labs Rest the management as per above (8) Atrial fibrillation Current Visit: Yes Status: Acute Assessment and plan: Chronic atrial fibrillation On amiodarone and metoprolol currently on hold secondary to bradycardia Cardiology consulted She is not on any anticoagulation secondary to GI bleed Qualifiers: Atrial fibrillation type: chronic Qualified Code(s): I48.2 - Chronic atrial fibrillation (9) DM (diabetes mellitus), type 2 Current Visit: No Status: Chronic Assessment and plan: continue insulin coverage finger sticks Q6H A1c in AM Qualifiers: Diabetes mellitus ad terminal makeup operator insulin use: with ad terminal makeup operator use Diabetes mellitus complication status: with kidney complications Diabetes mellitus complication detail: with chronic kidney disease Chronic kidney disease stage: stage 3 (moderate) Qualified Code(s): E11.22 - Type 2 diabetes mellitus with diabetic chronic kidney disease; N18.3 - Chronic kidney disease, stage 3 (moderate); 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 (10) OLIVER (obstructive sleep apnea) Current Visit: Yes Status: Acute Assessment and plan: not compliant to bipap at home bipap at nights (11) Hypothyroidism (acquired) Current Visit: Yes Status: Acute Assessment and plan: Continue home dose Synthroid TSH in the morning (12) DVT prophylaxis Current Visit: No Status: Acute Assessment and plan: Heparin subcutaneous (13) Morbidly obese Current Visit: Yes Status: Acute Assessment and plan: BMI 50.2 nurtition consult - Time Spent With Patient Total time spent is greater than 50% in coordination of care (as documented) at patient's floor/unit and/or counseling patient:
[2018-07-11] MEDS ORDERED: *HR* Atropine Sulfate 1 MG/10 ML SYRINGE IVP PRN (12:50)
[2018-07-11] MEDS ORDERED: Dextrose Gel 15 GM/37.5 ML TUBE PO PRN ×2 (12:53)
[2018-07-11] MEDS ORDERED: *HR* Dextrose 50 % in Water (Syg) 50 ML SYRINGE IVP PRN (12:53)
[2018-07-11] MEDS ORDERED: D5% in Water 1,000 ML IVC PRN (12:53)
[2018-07-11 14:04] LABS: Bilirubin,Urine Negative (Negative); Blood,Urine Negative (Negative); Clarity,Urine Clear (Clear); Color,Urine Yellow (Yellow); Glucose,Urine (UA) 100 mg/dL (Normal); Ketones,Urine Negative (Negative); Leukocyte Esterase,Urine Small (Negative); Nitrite,Urine Negative (Negative); Protein,Urine Negative (Neg-Trace); Specific Gravity,Urine 1.021 (1.010-1.025); Urobilinogen,Urine Normal (Normal)
[2018-07-11 14:06] LABS: Bacteria,Urine Moderate per hpf (None-Few); Hyaline Casts,Urine None Seen per lpf (None-Few); RBC,Urine 0-3 per hpf (0-3); Squamous Epithelial Cell,Urine Moderate per lpf (None-Few); WBC,Urine 0-3 per hpf (0-3)
[2018-07-11] MEDS: (Subcutaneous Insulin Pump [T:Slim] 1 EACH) MC SCH (14:16)
[2018-07-11] MEDS: Pregabalin 75 MG CAPSULE PO SCH ×2 (14:32→20:41)
[2018-07-11] MEDS: MethylPREDNISolone 40 MG/ML VIAL IVP SCH ×2 (14:32→23:44)
[2018-07-11] MEDS: *HR* Heparin 5,000 UNIT/ML VIAL SQ SCH ×2 (14:32→20:41)
[2018-07-11] MEDS: Doxycycline 100 MG in 0.9 % Sodium Chloride Mini Bag 100 ML IVPB SCH ×2 (14:32→15:27)
[2018-07-11] MEDS ORDERED: Lactulose Oral Soln 20 GM/30 ML UDC PO SCH (15:00)
[2018-07-11] MEDS: Albuterol 2.5 MG/3 ML NEBULIZER IH SCH ×3 (15:22→20:38)
[2018-07-11] MEDS: Furosemide 40 MG/4 ML VIAL IVP SCH (15:26)
[2018-07-11] MEDS: Lactulose Oral Soln 20 GM/30 ML UDC PO SCH ×2 (15:26→20:41)
[2018-07-11 15:56] LABS: Adenovirus Not Detected (Not Detect); Bordetella Pertussis Not Detected (Not Detect); Chlamydophila pneumoniae Not Detected (Not Detect); Coronavirus 229E Not Detected (Not Detect); Coronavirus HKU1 Not Detected (Not Detect); Coronavirus NL63 Not Detected (Not Detect); Coronavirus OC43 Not Detected (Not Detect); Human Metapneumovirus Not Detected (Not Detect); Human Rhinovirus/Enterovirus Not Detected (Not Detect); Influenza A Subtype 2009 H1 Not Detected (Not Detect); Influenza A Untypeable Not Detected (Not Detect); Influenza B Not Detected (Not Detect); Mycoplasma pneumoniae Not Detected (Not Detect); Parainfluenza Virus 1 Not Detected (Not Detect); Parainfluenza Virus 2 Not Detected (Not Detect); Parainfluenza Virus 3 Not Detected (Not Detect); Parainfluenza Virus 4 Not Detected (Not Detect); Respiratory Syncytial Virus Not Detected (Not Detect)
[2018-07-11 16:09] LABS: Creatine Kinase 36 Units/L (30-223)
[2018-07-11 16:10] LABS: Troponin I < 0.03 ng/mL (< 0.04)
[2018-07-11] MEDS: Budesonide/Formoterol 160/4.5 1 PUFF INH IH SCH (20:38)
[2018-07-11] MEDS: Melatonin 3 MG TABLET PO SCH (20:41)
[2018-07-12] MEDS: Albuterol 2.5 MG/3 ML NEBULIZER IH SCH ×7 (00:03→23:45)
[2018-07-12] MEDS: Doxycycline 100 MG in 0.9 % Sodium Chloride Mini Bag 100 ML IVPB SCH ×2 (05:18→18:36)
[2018-07-12] MEDS: *HR* Heparin 5,000 UNIT/ML VIAL SQ SCH ×3 (05:18→20:25)
[2018-07-12 06:42] LABS: Hematocrit 26.7 % (35.3-44.9); Hemoglobin 8.2 g/dL (11.5-15.4); Immature Granulocytes % 0.6 % (0-4); Lymphocytes # 0.3 K/mcL (0.6-4.6); Lymphocytes % 5.5 %; Mean Corpuscular HGB Conc 30.7 g/dL (31.6-35.5); Mean Corpuscular Hemoglobin 26.5 pg (28.0-33.3); Mean Corpuscular Volume 86.4 fL (83.0-100.0); Monocytes # 0.2 K/mcL (0.0-1.3); Monocytes % 2.8 %; Neutrophils # 4.9 K/mcL (1.6-8.9); Platelet Count 187 K/mcL (140-400); Red Blood Count 3.09 M/mcL (3.82-4.97); Red Cell Distribution Width 16.9 % (11.5-14.5); Segmented Neutrophils % 91.1 %
[2018-07-12 06:45] LABS: Estimated Average Glucose 169 mg/dl; Hemoglobin A1C 7.5 %; INR 1.3; Prothrombin Time 14.1 Seconds (9.4-12.1)
[2018-07-12 06:47] LABS: Activated Partial Thrombo Time 29.9 Seconds (26.0-36.0)
[2018-07-12 07:06] LABS: Calcium 9.7 mg/dL (8.6-10.3); Magnesium 1.8 mg/dL (1.6-2.6); Phosphorous 3.4 mg/dL (2.7-4.5); Potassium 4.6 mEq/L (3.5-5.1)
[2018-07-12 07:11] LABS: Thyroid Stimulating Hormone 1.171 mcIU/mL (0.340-5.600)
[2018-07-12] MEDS: Budesonide/Formoterol 160/4.5 1 PUFF INH IH SCH ×2 (07:35→19:59)
[2018-07-12] MEDS: Cholecalciferol (D-3) 1,000 UNIT TABLET PO SCH (07:40)
[2018-07-12] MEDS: Pregabalin 75 MG CAPSULE PO SCH ×3 (07:40→20:25)
[2018-07-12] MEDS: FLUoxetine 20 MG CAPSULE PO SCH (07:40)
[2018-07-12] MEDS: amLODIPine 5 MG TABLET PO SCH (07:40)
[2018-07-12] MEDS: Lactulose Oral Soln 20 GM/30 ML UDC PO SCH ×3 (07:40→20:25)
[2018-07-12] MEDS: Furosemide 40 MG/4 ML VIAL IVP SCH ×2 (07:41→18:36)
[2018-07-12] MEDS: Aspirin Enteric Coated 81 MG Tablet PO SCH (07:41)
[2018-07-12] MEDS: MethylPREDNISolone 40 MG/ML VIAL IVP SCH ×2 (07:41→18:36)
[2018-07-12] MEDS: (Subcutaneous Insulin Pump [T:Slim] 1 EACH) MC SCH (07:43)
[2018-07-12] MEDS ORDERED: Perflutren Lipid Microsphere 1.3 ML in 0.9 % Sodium Chloride 8.7 ML IVP ONE (08:34)
[2018-07-12] MEDS ORDERED: Perflutren Lipid Microsphere 2 ML VIAL ONE (08:36)
[2018-07-12] MEDS ORDERED: Metoprolol XL (24 HR) Succ 25 MG TAB.ER.24H PO SCH (09:00)
[2018-07-12] MEDS ORDERED: *HR* Amiodarone 200 MG TABLET PO SCH (09:00)
--- NOTE | 2018-07-12 09:47 | Cardiology Consult Note ---
Addendum entered and electronically signed by True Atkins DO 07/12/18 12:37: I examined this patient and my medical decision-making was reviewed with the R leonardat Physician. I agree with the documented findings, disposition and treatment plan as described except to the extent set forth below. Multifactorial respiratory insufficiency related to diastolic heart failure, COPD, morbid obesity, etc. Thoracentesis performed earlier today. History of paroxysmal atrial fibrillation. Sinus bradycardia, beta bianca held. TTE reviewed, LVEF preserved. Severe pulmonary hypertension noted. Anemia. Normocytic. CKD. CAD, prior PCI. Cautious diuresis as needed pending results of thoracentesis. Currently on Lasix 40 mg IV twice daily. CHF education provided. Continue aspirin, statin therapy. Given relative bradycardia, agree with holding beta bianca. Continue amiodarone to help maintain sinus rhythm. No further inpatient cardiology recommendations. Thanks, True Atkins DO, [facility] Original Note: Date of Encounter: 07/12/18 Time of Encounter: 09:39 Assessment and Plan (1) Respiratory insufficiency Current Visit: Yes Status: Acute 62 YO F here for SOB with history of diastolic heart failure with preserved EF. Repeat echo shows EF 60-65, pulmonary HTN, worsening dilated atria b/l (mid and moderate to severe), mild LV diastolic dysfunction, and normal WM. Patient is on Lasix 40 BID. Most likely acute on chronic respiratory insufficiency. Patient has multiple comorbidities leading to this including diastolic heart failure with preserved EF, COPD, morbid obesity, OLIVER. She is currently undergoing thoracentesis. Recommend diuresis as tolerated. Will continue to follow. (2) Acute on chronic diastolic heart failure with preserved ejection fraction Current Visit: Yes Status: Acute Repeat echo shows EF 60-65, pulmonary HTN, worsening dilated atria b/l (mid and moderate to severe), mild LV dilastolic dysfunction, and normal WM. See above recs. (3) A-fib Current Visit: No Status: Chronic Heart rate was 48-50 in AM so metroprolol discontinued. Last heart rate was 50 will continue metoprolol d/c. Continue amiodarone 200 QD Qualifiers: Atrial fibrillation type: paroxysmal Qualified Code(s): I48.0 - Paroxysmal atrial fibrillation Discussion w patient/family: The assessment and plan as outlined above was discussed with the patient and/or family members who expressed understanding and agreement. All questions were answered. Thank you for involving us in the care of your patient. Please call with any questions. History of Present Illness Consult date: 07/12/18 Chief complaint: SOB with history of CHF History of present illness: Ms. Feliciano is a 62 year old female consulted for SOB with history of CHF. She states that SOB started 2 days ago with associated LE edema and pain. She states pain in legs is located below the knees b/l, does not radiate, not associated with calf tenderness. States that ambulation makes pain worse and laying down and elevating legs makes pain less. She states SOB associated with wheezing and productive cough that is whitish-yellow. She states she has had chills for the past few days but denies sick contacts, fever, night sweats. She has smoked .5 PPD for 15 years. History of CHF with last exacerbation in May 24 (treated with lasix), paroxysmal afib on amidarone and metoprolol at home, 2 MIs in February with caths (s/p BMS) and March of 2017, COPD, OLIVER, hypothyroidism, DVT not on anticoag d/t GI bleed. At this current visit she has had 2 negative trops, BNP 1109, and an echo showing EF 65-70, severe pulm HTN, normal WM, mild LV diastolic dysfunction, and severely dilated atria. Last echo was 10/18/17 showing similar results. Past Med Surg Social Fam HX - Past Medical History Medical history: atrial fibrillation, CHF, COPD, coronary artery disease, DVT, diabetes, GI bleed, hyperlipidemia, hypertension, myocardial infarction, renal disease, thyroid disease Additional medical history: hemrhoids,gout Psychiatric history: anxiety, depression - Past Surgical History Surgical History: angioplasty/stent, other Additional surgical history: 1 cardiac stents. right leg procedure for DVT - Social History Smoking Status: Former smoker Smokeless Tobacco Status: No Alcohol use: none Drug use: none - Family History Mother Family Member Ethnicity: Non- Living Status: Still Living Hx Family Cardiac Disorders: Yes Hx Family Endocrine Disorder: Yes (DM) Hx Family Neurologic Disorders: Yes (Dementia) Brother Family Member Ethnicity: Non- Living Status: Hx Family Cancer: Yes (colon cancer) Son Family Member Ethnicity: Non- Living Status: Still Living Hx Family GI Disorders: Yes (high grade dysplasia polyps) Father Adopted: No Family Member Ethnicity: Non- Living Status: Hx Family Cardiac Disorders: Yes (heart attack) Hx Family Respiratory Disorders: Yes (breathing issues) Hx Family Cancer: No Hx Family GI Disorders: No Hx Family Endocrine Disorder: No Hx Family Neuromuscular Disorders: No Hx Family Neurologic Disorders: No Hx Family HEENT Disorders: No Hx Family Autoimmune Disorders: No Medications and Allergies Albuterol Neb [Proventil Neb] 2.5 mg IH Q4H 02/07/16 [History] Albuterol Sulfate [Proventil Hfa] 2 puff IH Q4H PRN 02/07/16 [History] Pregabalin [Lyrica] 75 mg PO TID 02/07/16 [History] Melatonin 10 mg PO HS #30 capsule 02/11/16 [Rx] Budesonide/Formoterol 160/4.5 [Symbicort 160/4.5] 2 puff IH BIDR 30 Days inhaler 03/03/16 [Rx] Cholecalciferol (Vitamin D3) [Dialyvite Vitamin D] 5,000 unit PO QAM 03/27/16 [History] Omeprazole 40 mg PO QPM 03/27/16 [History] Amiodarone [Cordarone] 200 mg PO DAILY #30 tablet 04/11/16 [Rx] Acetaminophen [Tylenol] 500 mg PO Q6HR PRN 06/12/16 [History] Oxygen 4 l NS AD 06/12/16 [History] Febuxostat [Uloric] 80 mg PO DAILY 09/10/16 [History] Lisinopril [Zestril] 40 mg PO DAILY #30 tablet 10/16/16 [Rx] amLODIPine [Norvasc] 10 mg PO DAILY #30 tablet 10/16/16 [Rx] Atorvastatin Calcium [Lipitor] 20 mg PO HS 01/02/17 [History] Aspirin [Lo-Dose Aspirin EC] 81 mg PO DAILY 11/09/17 [History] FLUoxetine HCl [Prozac] 20 mg PO DAILY 11/09/17 [History] Montelukast [Singulair] 10 mg PO DAILY 11/09/17 [History] Subcutaneous Insulin Pump [T:Slim] 1 each MC AD 11/30/17 [History] Metoprolol Succinate [Toprol Xl] 25 mg PO QDPC #30 tab.er.24h 12/03/17 [Rx] Furosemide [Lasix] 40 mg PO BID 07/11/18 [History] Lactulose [Enulose] 10 gm PO TID 07/11/18 [History] Levothyroxine Sodium [Levoxyl] 175 mcg PO QAM 07/11/18 [History] Allergy/AdvReac Type Severity Reaction Status Date / Time ciprofloxacin [From Cipro] Allergy Severe Anaphylaxis Verified 07/11/18 09:28 clarithromycin [From Biaxin] Allergy Severe Hives Verified 07/11/18 09:28 clonidine Allergy Severe Anaphylaxis Verified 07/11/18 09:28 levofloxacin [From Levaquin] Allergy Severe Anaphylaxis Verified 07/11/18 09:28 Warfarin Allergy Severe Difficulty Verified 07/11/18 09:28 Breathing Cefaclor Allergy Anaphylaxis Verified 07/11/18 09:28 codeine Allergy Rash Verified 07/11/18 09:28 Ertapenem [From Invanz] Allergy Rash Verified 07/11/18 09:28 Hydralazine Allergy Hives Verified 07/11/18 09:28 sulfamethoxazole Allergy Hives Verified 07/11/18 09:28 [From Bactrim] trimethoprim [From Bactrim] Allergy Hives Verified 07/11/18 09:28 tiotropium AdvReac Severe Blurry Verified 07/11/18 09:28 [From Spiriva with Vision HandiHaler] acarbose AdvReac Blurry Verified 07/11/18 09:28 Vision atorvastatin [From Lipitor] AdvReac Muscle Pain Verified 07/11/18 09:28 fenofibrate [From Tricor] AdvReac Muscle Pain Verified 07/11/18 09:28 rivaroxaban [From Xarelto] AdvReac Gastrointestinal Verified 07/11/18 09:28 Upset All Systems Review: The remainder of the systems were reviewed and are negative - Constitutional Constitutional: chills, malaise, no anorexia, no daytime sleepiness, no fe oseas(s), no night sweats - Cardiovascular Cardiovascular: as per HPI - Respiratory Respiratory: cough, dyspnea, wheezing, other (productive white-yellow sputum) - Gastrointestinal Gastrointestinal: no abdominal pain, no nausea Physical Examination Vital Signs, Last 4 Hours Temp Pulse Resp BP Pulse Ox 07/12/18 07:36 97.5 F L 50 19 165/62 99 General: Conversant, No Apparent Distress HEENT: Atraumatic, Normocephaly Neck: No JVD, Other (carotid pulses not appreciated most likely due to obesity) Cardiac: Reg Rate and Rhythm (afib not appreciated), Normal S1 and S2, No Murmur Lungs: Normal Breath Sounds, No Wheeze, Rales, Rhonchi Neuro: Alert and responsive, No focal deficits noted Abdomen: Soft, Non-Tender Skin: No rashes noted on visualized skin Musculoskeletal: No Chest Wall Tenderness Extremities: No Cyanosis, Other (Significant Edema of LE below knee apprciated) Results 07/12/18 05:49 07/12/18 05:49 Lab Results 07/11/18 07/11/18 07/11/18 09:39 09:39 09:49 WBC 7.4 Hgb 8.1 L Hct 26.6 L Plt Count 188 INR APTT Sodium 135 L Potassium 4.3 Chloride 97 L Carbon Dioxide 30 H BUN 56 H Creatinine 1.79 H Glucose 105 Calcium 9.7 Magnesium Troponin I < 0.03 B-Natriuretic Peptide 1109 H TSH 07/11/18 07/12/18 07/12/18 15:23 05:49 05:49 WBC 5.4 Hgb 8.2 L Hct 26.7 L Plt Count 187 INR 1.3 APTT 29.9 Sodium Potassium Chloride Carbon Dioxide BUN Creatinine Glucose Calcium Magnesium Troponin I < 0.03 B-Natriuretic Peptide TSH 07/12/18 05:49 WBC Hgb Hct Plt Count INR APTT Sodium 134 L Potassium 4.6 Chloride 97 L Carbon Dioxide 24 BUN 56 H Creatinine 1.53 H Glucose 210 H Calcium 9.7 Magnesium 1.8 Troponin I B-Natriuretic Peptide TSH 1.171 - Imaging and Cardiology Echo: report reviewed - EKG Interpretation EKG results cardiology: personally reviewed, no diagnostic ischemia, left bundle branch block Consult Discharge Plan - Plan Referrals: Lang Jarvis DO [Primary Care Provider] - 07/18/18 11:30 am
[2018-07-12 12:26] LABS: RBC,Pleural Fluid < 0.002 M/mcL
[2018-07-12 12:38] LABS: Glucose,Pleural Fluid 213 mg/dL (No Ref Range); LDH,Pleural Fluid 53 Units/L (No Ref Range); Total Protein,Pleural Fluid < 3.0 g/dL (No Ref Range)
[2018-07-12 12:57] LABS: Lymphocytes,Pleural Fluid 62.9 %
[2018-07-12 12:58] LABS: Appearance of Pleural Fl Clear (Clear)
[2018-07-12] MEDS ORDERED: Isosorbide MONOnitrate (24 HR) 30 MG TAB.ER.24H PO ONE (13:24)
--- NOTE | 2018-07-12 14:04 | IR Procedure Note ---
Date of procedure: 07/12/18 Consent Obtained: Verbal consent, Written consent Timeout: Correct patient and procedure verified, Correct site verified, Time out performed, Skin prep completed Local anesthetic: Lidocaine 1% Indications: right pleural effusion Procedure Performed: right thoracentesis Was there an lead dental assistant present: No Site/Technique: right chest Results/Findings: moderate pleural effusion Estimated blood loss (cc): 0 Complications: None; Tolerated procedure well Post Procedure Treatment Plan: chest xray Specimen: 650 cc fluid
--- NOTE | 2018-07-12 14:45 | Internal Med Progress Note ---
Hospitalist Progress Note - Encounter Date of Encounter: 07/12/18 Time of Encounter: 14:34 - Subjective Interval History: Patient was seen and examined at bedside patient underwent thoracentesis today tolerated procedure well. Complains of tenderness to thoracentesis Site. Denies any chest pain or shortness of breath at this time - Exam Vitals: Temp Pulse Resp BP Pulse Ox 97.5 F L 55 18 167/71 97 07/12/18 11:13 07/12/18 11:13 07/12/18 11:13 07/12/18 11:13 07/12/18 11:13 Exam: General: Patient is alert, oriented, in mild distress speaks full sentences Morbidly obese Head: atraumatic, normocephalic, Eye: normal appearance, PERRL, no scleral icterus, no conjunctival injection ENT: mucous membranes moist, normal external ear exam Neck: normal inspection, trachea midline, full ROM, no carotid bruits Chest: normal inspection, symmetric chest rise Respiratory: Decreased breath sounds secondary to body habitus, Good respiratory effort. Scattered crackles in bases bilaterally Cardiovascular: Bradycardic. s1 and s2 No clicks, rubs, gallops, or murmors. Abdomen: Bowel sounds present normoactive x-4 quadrants. Abdomen is soft, nondistended. no Epigastric tenderness. No guarding or rebound. No organomegaly noted, obese musculoskeletal: Spontaneously moving all extremities. Has +2 edema of the lower extremities, no calf tenderness, erythema above the ankle up to the knees bilaterally Skin: warm, dry, intact. Neuro: Alert and oriented x4. Sensation light touch intact. Cranial nerves 2- 12 is intact. No focal deficit Psych: Patient's affect is normal - Assessment and Plan (1) Acute on chronic diastolic heart failure with preserved ejection fraction Current Visit: Yes Status: Acute Assessment and Plan: Started on Lasix 40 mg IV twice a day Echocardiogram B Blockers and amiodarone on hold secondary to bradycardia Continue with amlodipine continue Statin and ASA Cardiology was consulted- Discussed with Dr. nelson who agrees with Above - follow rest of recommendations TSH Last heart catheterization February 2016 showed mid LAD 20-30%, mid circumflex 30%, status post BMS to OM1 90% lesion, proximal RCA 20% TTE in 10/2017 Impressions: LVEF 55-60%. Despite the use of Definity, not all LV segments were well visualized. Grossly, the left ventricle is normal in chamber size, wall thickness, and function. Moderate left ventricular diastolic dysfunction. Right ventricle was not well visualized. Unable to estimate RVSP due to lack of TR jet. Valves were not well visualized. No obvious valvular dysfunction noted. 07/12 Closely monitor intake and output daily weight Cardiology has been consulted and appreciate recommendations we will continue with Lasix 40 mg IV twice a day per recommendations 40 beta bianca for now due to bradycardia Continue with amiodarone to maintain sinus rhythm 1500ml fluid restriction (2) DM (diabetes mellitus), type 2 Current Visit: No Status: Chronic Assessment and Plan: continue insulin coverage finger sticks Q6H A1c in AM 07/12 Patient has insulin pump which we will continue this time monitor closely since patient is receiving steroids A1c 7.5 Diabetic diet-consult dietitian (3) DVT prophylaxis Current Visit: No Status: Acute Assessment and Plan: Heparin subcutaneous (4) Bradycardia Current Visit: Yes Status: Acute Assessment and Plan: has 1st degree AV block We will hold beta blockers and amiodarone Atropine at bedside for symptomatic bradycardia <35 Cardiology was consulted- Discussed with Dr. nelson who agrees with Above Cardiac monitoring cortisol level to rule out Adrenal insufficiency 07/12 Continues to have bradycardia we will continue to hold beta bianca Cardiology has seen the patient recommending continue amiodarone which we will continue Continuous cardiac monitoring Atropine at bedside for symptomatic bradycardia heart rate less than 35 Cortisol level this a.m. 3.2 (5) Acute exacerbation of chronic obstructive pulmonary disease (COPD) Current Visit: Yes Status: Acute Assessment and Plan: Was given Solu-Medrol 125 mg in the ED will continue with 40 mg every 8 hours IV doxycycline Sputum cultures, urine antigens, respiratory viral panel Duo nebs every 4 hours We will continue home inhalers Oxygen via nasal cannula BiPAP at night and when necessary for respiratory distress 07/12 No wheezing at this time respiratory status seems to be stable we will decrease Solu-Medrol down to 40 mg IV every 12 hours Continue with doxycycline Sputum culture is pending Legionella and strep pneumonia are negative Respiratory viral panel is negative Oxygen per nasal cannula BiPAP at night and as needed for respiratory distress Continue with bronchodilators (6) Lower extremity edema Current Visit: Yes Status: Acute Assessment and Plan: DVT study elevate LE CPK continue with lasix as above Doubt cellulitis most likely from venous stasis but if she develops fever and leukocytosis with worsening erythema consider CT of steh LE and ID consult 07/12 Venous duplex lower extremities bilaterally. Nares also are negative for DVT Continue with IV Lasix Most likely from venous stasis however if fever develops or leukocytosis consider CT of lower extremity and ID consult (7) Morbidly obese Current Visit: Yes Status: Acute Assessment and Plan: BMI 50.2 nurtition consult 07/12 Encourage lifestyle changes-dietitian has been consulted (8) ARF (acute renal failure) Current Visit: Yes Status: Acute Assessment and Plan: Nephrology was consulted in the ED We will continue with Lasix 40 mg IV twice a day, if worsening creatinine consider holding the Lasix Strict intake and output Renal ultrasound UA 07/12 Nephrology consult Continue with Lasix 40 mg IV twice a day monitor creatinine closely Take output and daily weights Renal ultrasound shows no hydronephrosis and normal echogenicity (9) Pleural effusion Current Visit: Yes Status: Acute Assessment and Plan: As had previous right-sided pleural effusion where she had a thoracocentesis performed on 05/11/18 and 725 mL of fluid was removed IR consulted for thoracocentesis Follow thoracocentesis labs Rest the management as per above 07/12 Patient underwent thoracentesis today and had 650 ML's of fluid removed Thoracentesis fluid sent for lab pending results Continue with IV Lasix (10) Atrial fibrillation Current Visit: Yes Status: Acute Assessment and Plan: Chronic atrial fibrillation On amiodarone and metoprolol currently on hold secondary to bradycardia Cardiology consulted She is not on any anticoagulation secondary to GI bleed 07/12 History of chronic atrial fibrillation we will continue with amiodarone per cardiology recommendations Cardiology has been consulted On any anticoagulation due to history of GI bleed (11) OLIVER (obstructive sleep apnea) Current Visit: Yes Status: Acute Assessment and Plan: not compliant to bipap at home bipap at nights 07/12 Compliant with BiPAP at home BiPAP at night and as needed (12) New onset left bundle branch block (LBBB) Current Visit: Yes Status: Acute Assessment and Plan: new LBBB on todays EKG troponin negative - currently chest pain free will follow troponins and EKG Q6H BB and amiodarone on hold for bradycardia Discussed with Dr. nelson who agrees with Above TTE 07/12 EKG on admission did show new left bundle branch block Her parents have been negative and patient has been chest pain-free Patient does have bradycardia 40 beta bianca amiodarone resumed per cardiology recommendations Cardiology has been consulted and appreciate recommendations Echocardiogram Impressions: LVEF 65-70%. Mild concentric left ventricular hypertrophy. Mild left ventricular diastolic dysfunction. Normal right ventricular structure and function. Severely dilated left atrium. Mildly dilated right atrium. Mild mitral stenosis. Severe pulmonary hypertension. (13) Hypothyroidism (acquired) Current Visit: Yes Status: Acute Assessment and Plan: Continue home dose Synthroid TSH in the morning 07/12 Continue with Synthroid TSH 1.171 - Time Spent with Patient Total time spent is greater than 50% in coordination of care (as documented) at patient's floor/unit and/or counseling patient: Internal Medicine: Result - Labs CBC & Chem 7: 07/12/18 05:49 07/12/18 05:49 Labs: Short CBC 07/12/18 Range/Units 05:49 WBC 5.4 (4.3-11.1) K/mcL Hgb 8.2 L (11.5-15.4) g/dL Hct 26.7 L (35.3-44.9) % Plt Count 187 (140-400) K/mcL Neutrophils # 4.9 (1.6-8.9) K/mcL BMP 07/12/18 05:49 Sodium 134 L Potassium 4.6 Chloride 97 L Carbon Dioxide 24 BUN 56 H Creatinine 1.53 H Glucose 210 H Calcium 9.7 Cardiac Enzymes 07/11/18 Range/Units 15:23 Troponin I < 0.03 (< 0.04) ng/mL - ABG Interpretation ABG results: PT/INR, D-dimer PT 14.1 Seconds (9.4-12.1) H 07/12/18 05:49 - Impressions Impressions Retroperitoneum Ultrasound 07/11/18 00:00 IMPRESSION: No hydronephrosis. Normal renal echogenicity. Mild bladder wall thickening. D/ / 07/11/2018 20:52:45 Bubba Balderas MD / Daiana estrada Interpreting Provider: Bubba Balderas MD Chest X-Ray 07/12/18 10:38 IMPRESSION: 1. Decreased right pleural effusion 2. No pneumothorax 3. Findings suggest congestive heart failure D/ / Mikey Peter MD / Mikey Peter MD Interpreting Provider: Mikey Peter MD Echocardiogram 07/12/18 17:52 Impressions: LVEF 65-70%. Mild concentric left ventricular hypertrophy. Mild left ventricular diastolic dysfunction. Normal right ventricular structure and function. Severely dilated left atrium. Mildly dilated right atrium. Mild mitral stenosis. Severe pulmonary hypertension. Left Ventricular Wall Motion: Rest Echo Findings All wall segments showed normal motion. Findings: Study Quality * Technically adequate exam. ECG Findings * Normal sinus rhythm. Left Ventricle * LVEF 65-70%. * Normal LV chamber size and systolic function. * Mild concentric left ventricular hypertrophy. * Mild left ventricular diastolic dysfunction. Right Ventricle * Normal right ventricular structure and function. Left Atrium * Severely dilated left atrium. Right Atrium * Mildly dilated right atrium. Interatrial Septum * Interatrial septum not well evaluated. Aortic Valve * Mildly increased LVOT gradient, PG/MG 11/5 mmHg. * No aortic stenosis. * No aortic regurgitation. * Normal aortic valve structure. Mitral Valve * Mild mitral annular calcification * Moderately calcified mitral valve leaflets. * No mitral regurgitation. * Mild mitral stenosis. * Mean transmitral gradient is 6 mmHg. Tricuspid Valve * Normal tricuspid valve structure. * No tricuspid stenosis. * Trace tricuspid regurgitation. * Estimated RVSP is 60 mmHg. * Estimated RA pressure is 15 mmHg. * Severe pulmonary hypertension. Pulmonic Valve * Normal pulmonic valve structure and function. * No pulmonic regurgitation. * No pulmonic stenosis. Aorta * Normally sized aortic root. Pericardium * The pericardium appears normal. * Appearance is consistent with a {type} mitral valve replacement. Function appears {function{. IVC * The IVC is dilated. * < 50% respiratory change. 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
--- NOTE | 2018-07-12 15:14 | Nephrology Consult Note ---
Date of Encounter: 07/12/18 Time of Encounter: 15:09 Assessment and Plan (1) CKD (chronic kidney disease) stage 3, GFR 30-59 ml/min Current Visit: Yes Status: Acute Is followed by Dr. Cardoso in the office for CKD 3. GFR is 34, which is close to baseline. Urine studies ordered. Continue current diuretic regimen. Strict I/O 1.5 Liter fluid restriction. Low na/cardiac diet. Avoid nephrotoxins and renal dose. (2) Acute exacerbation of chronic obstructive pulmonary disease (COPD) Current Visit: Yes Status: Acute Per primary. (3) Acute on chronic diastolic heart failure with preserved ejection fraction Current Visit: Yes Status: Acute Per primary. (4) Diabetes mellitus Current Visit: Yes Status: Acute Per primary. Qualifiers: Qualified Code(s): E11.9 - Type 2 diabetes mellitus without complications History of Present Illness - Reason for Consult Consult date: 07/12/18 Chronic Kidney Disease Requesting physician: Caren Flores - Chief Complaint sob/legs swelling - History of Present Illness Ms. Feliciano is a 62-year-old female who presented to the ED with worsening bilateral lower extremity edema. PMH: atrial fibrillation, CHF, COPD, coronary artery disease, DVT, diabetes, GI bleed, hyperlipidemia, hypertension, myocardial infarction. She reports that the swelling has been progressively getting worse over the past week. However on Wednesday night, her lower extremities were so edematous they were "painful" so she decided to come to the hospital to be evaluated. She is followed by Dr. Cardoso in the office for CKD 3. She has a home health nurse that wraps her legs 3 times a week. She is compliant with her medications at home. Does adhere to a low sodium diet, and a 1 L fluid restriction at home. She denies chest pain but admits to shortness of breath. Urine studies have been ordered. Recommend strict I/O, daily weights and a 1.5 Liter fluid restriction. Denies Family history of hemodialysis. Lives at home with her spouse. Is a for sekou smoker, denies ETOH or illicit drug use. Past Med Surg Social Fam HX - Past Medical History Medical history: atrial fibrillation, CHF, COPD, coronary artery disease, DVT, diabetes, GI bleed, hyperlipidemia, hypertension, myocardial infarction, renal disease, thyroid disease Additional medical history: hemrhoids,gout Psychiatric history: anxiety, depression - Past Surgical History Surgical History: angioplasty/stent, other Additional surgical history: 1 cardiac stents. right leg procedure for DVT - Social History Smoking Status: Former smoker Smokeless Tobacco Status: No Alcohol use: none Drug use: none - Family History Mother Family Member Ethnicity: Non- Living Status: Still Living Hx Family Cardiac Disorders: Yes Hx Family Endocrine Disorder: Yes (DM) Hx Family Neurologic Disorders: Yes (Dementia) Brother Family Member Ethnicity: Non- Living Status: Hx Family Cancer: Yes (colon cancer) Son Family Member Ethnicity: Non- Living Status: Still Living Hx Family GI Disorders: Yes (high grade dysplasia polyps) Father Adopted: No Family Member Ethnicity: Non- Living Status: Hx Family Cardiac Disorders: Yes (heart attack) Hx Family Respiratory Disorders: Yes (breathing issues) Hx Family Cancer: No Hx Family GI Disorders: No Hx Family Endocrine Disorder: No Hx Family Neuromuscular Disorders: No Hx Family Neurologic Disorders: No Hx Family HEENT Disorders: No Hx Family Autoimmune Disorders: No Medications and Allergies Albuterol Neb [Proventil Neb] 2.5 mg IH Q4H 02/07/16 [History] Albuterol Sulfate [Proventil Hfa] 2 puff IH Q4H PRN 02/07/16 [History] Pregabalin [Lyrica] 75 mg PO TID 02/07/16 [History] Melatonin 10 mg PO HS #30 capsule 02/11/16 [Rx] Budesonide/Formoterol 160/4.5 [Symbicort 160/4.5] 2 puff IH BIDR 30 Days inhaler 03/03/16 [Rx] Cholecalciferol (Vitamin D3) [Dialyvite Vitamin D] 5,000 unit PO QAM 03/27/16 [History] Omeprazole 40 mg PO QPM 03/27/16 [History] Amiodarone [Cordarone] 200 mg PO DAILY #30 tablet 04/11/16 [Rx] Acetaminophen [Tylenol] 500 mg PO Q6HR PRN 06/12/16 [History] Oxygen 4 l NS AD 06/12/16 [History] Febuxostat [Uloric] 80 mg PO DAILY 09/10/16 [History] Lisinopril [Zestril] 40 mg PO DAILY #30 tablet 10/16/16 [Rx] amLODIPine [Norvasc] 10 mg PO DAILY #30 tablet 10/16/16 [Rx] Atorvastatin Calcium [Lipitor] 20 mg PO HS 01/02/17 [History] Aspirin [Lo-Dose Aspirin EC] 81 mg PO DAILY 11/09/17 [History] FLUoxetine HCl [Prozac] 20 mg PO DAILY 11/09/17 [History] Montelukast [Singulair] 10 mg PO DAILY 11/09/17 [History] Subcutaneous Insulin Pump [T:Slim] 1 each MC AD 11/30/17 [History] Metoprolol Succinate [Toprol Xl] 25 mg PO QDPC #30 tab.er.24h 12/03/17 [Rx] Furosemide [Lasix] 40 mg PO BID 07/11/18 [History] Lactulose [Enulose] 10 gm PO TID 07/11/18 [History] Levothyroxine Sodium [Levoxyl] 175 mcg PO QAM 07/11/18 [History] Allergy/AdvReac Type Severity Reaction Status Date / Time ciprofloxacin [From Cipro] Allergy Severe Anaphylaxis Verified 07/11/18 09:28 clarithromycin [From Biaxin] Allergy Severe Hives Verified 07/11/18 09:28 clonidine Allergy Severe Anaphylaxis Verified 07/11/18 09:28 levofloxacin [From Levaquin] Allergy Severe Anaphylaxis Verified 07/11/18 09:28 Warfarin Allergy Severe Difficulty Verified 07/11/18 09:28 Breathing Cefaclor Allergy Anaphylaxis Verified 07/11/18 09:28 codeine Allergy Rash Verified 07/11/18 09:28 Ertapenem [From Invanz] Allergy Rash Verified 07/11/18 09:28 Hydralazine Allergy Hives Verified 07/11/18 09:28 sulfamethoxazole Allergy Hives Verified 07/11/18 09:28 [From Bactrim] trimethoprim [From Bactrim] Allergy Hives Verified 07/11/18 09:28 tiotropium AdvReac Severe Blurry Verified 07/11/18 09:28 [From Spiriva with Vision HandiHaler] acarbose AdvReac Blurry Verified 07/11/18 09:28 Vision atorvastatin [From Lipitor] AdvReac Muscle Pain Verified 07/11/18 09:28 fenofibrate [From Tricor] AdvReac Muscle Pain Verified 07/11/18 09:28 rivaroxaban [From Xarelto] AdvReac Gastrointestinal Verified 07/11/18 09:28 Upset Review of Systems All Systems review (narrative): The remainder of the systems are negative. Constitutional: fatigue, no chills, no fever(s) Cardiovascular: dyspnea, dyspnea on exertion, edema, no chest pain at rest, no irregular heart rhythm, no palpitations Respiratory: dyspnea, dyspnea on exertion, no hemoptysis, no wheezing Gastrointestinal: no abdominal pain, no change in bowel habits, no diarrhea, no nausea, no vomiting Genitourinary Female: no hematuria, no urinary frequency, no urinary hesitancy, no urinary urgency Exam - Vital Signs Vital signs: Initial Vital Signs Temp Pulse Resp BP Pulse Ox 97.9 F 48 20 133/43 91 07/11/18 09:26 07/11/18 09:26 07/11/18 09:26 07/11/18 09:26 07/11/18 09:26 Vital Signs - Last 8 Hours Temp Pulse Resp BP Pulse Ox 07/12/18 11:13 97.5 F L 55 18 167/71 97 07/12/18 07:36 97.5 F L 50 19 165/62 99 Intake and Output 07/11/18 07/12/18 07/12/18 23:59 07:59 15:59 Intake Total 240 / 240 100 / 100 240 / 240 Output Total 300 / 300 Balance -60 / -60 100 / 100 240 / 240 Intake: IV Fluids 100 / 100 Doxycycline 100 MG In 0.9 % 100 / 100 Sodium Chloride (Mini-Bag +) 100 ML @ 100 mls/hr IVPB Q12HR [facility] Rx#:[id number] Oral 240 / 240 240 / 240 Output: Urine 300 / 300 Other: Meal Dinner Lunch Percent of Meal Consumed 100% 95% Stool Size Small Stool Consistency loose Stool Color Brown Weight 138.3 kg Blood Glucose* 341 220 123 Patient Weight 07/12/18 23:59 Weight 138.3 kg - General Appearance General appearance: well-developed, well-nourished, obese EENT: ATNC, hearing intact, vision intact Neck: supple Respiratory: clear Cardiology: edema (+3 pitting edema noted to bilat lower extremities.), normal S1, normal S2 Gastrointestinal: normoactive bowel sounds, no tenderness, no guarding Integumentary: no rash, warm and dry Neurologic: alert and oriented x3 Psychiatric: mood/affect appropriate, cooperative Results - Lab Results 07/12/18 05:49 07/12/18 05:49 Most recent lab results Calcium 9.7 mg/dL (8.6-10.3) 07/12/18 05:49 Phosphorus 3.4 mg/dL (2.7-4.5) 07/12/18 05:49 Magnesium 1.8 mg/dL (1.6-2.6) 07/12/18 05:49 Consult Discharge Plan - Plan Referrals: Lang Jarvis DO [Primary Care Provider] - 07/18/18 11:30 am
[2018-07-12] MEDS: Melatonin 3 MG TABLET PO SCH (20:25)
[2018-07-12 23:39] LABS: Protein/Creatinine Ratio,Urine 0.59 mg/mg (0.00-0.20)
[2018-07-13] MEDS: Albuterol 2.5 MG/3 ML NEBULIZER IH SCH ×6 (03:52→23:33)
[2018-07-13] MEDS: MethylPREDNISolone 40 MG/ML VIAL IVP SCH (05:23)
[2018-07-13] MEDS: Doxycycline 100 MG in 0.9 % Sodium Chloride Mini Bag 100 ML IVPB SCH ×2 (05:23→17:32)
[2018-07-13] MEDS: *HR* Heparin 5,000 UNIT/ML VIAL SQ SCH ×3 (05:23→20:49)
[2018-07-13 07:09] LABS: Hematocrit 23.1 % (35.3-44.9); Hemoglobin 7.2 g/dL (11.5-15.4); Immature Granulocytes % 0.4 % (0-4); Lymphocytes # 0.4 K/mcL (0.6-4.6); Lymphocytes % 5.2 %; Mean Corpuscular HGB Conc 31.2 g/dL (31.6-35.5); Mean Corpuscular Hemoglobin 26.8 pg (28.0-33.3); Mean Corpuscular Volume 85.9 fL (83.0-100.0); Monocytes # 0.4 K/mcL (0.0-1.3); Monocytes % 5.4 %; Neutrophils # 6.3 K/mcL (1.6-8.9); Platelet Count 181 K/mcL (140-400); Red Blood Count 2.69 M/mcL (3.82-4.97); Red Cell Distribution Width 17.4 % (11.5-14.5)
[2018-07-13 07:26] LABS: Calcium 9.7 mg/dL (8.6-10.3)
[2018-07-13] MEDS: Budesonide/Formoterol 160/4.5 1 PUFF INH IH SCH ×2 (07:41→19:49)
[2018-07-13] MEDS: Lactulose Oral Soln 20 GM/30 ML UDC PO SCH ×3 (08:58→20:49)
[2018-07-13] MEDS: Pregabalin 75 MG CAPSULE PO SCH ×3 (08:59→20:49)
[2018-07-13] MEDS: Cholecalciferol (D-3) 1,000 UNIT TABLET PO SCH (08:59)
[2018-07-13] MEDS: Furosemide 40 MG/4 ML VIAL IVP SCH ×2 (08:59→17:32)
[2018-07-13] MEDS: FLUoxetine 20 MG CAPSULE PO SCH (08:59)
[2018-07-13] MEDS: amLODIPine 5 MG TABLET PO SCH (08:59)
[2018-07-13] MEDS: *HR* Amiodarone 200 MG TABLET PO SCH (08:59)
[2018-07-13] MEDS: Aspirin Enteric Coated 81 MG Tablet PO SCH (08:59)
[2018-07-13] MEDS: (Subcutaneous Insulin Pump [T:Slim] 1 EACH) MC SCH (10:28)
--- NOTE | 2018-07-13 12:55 | Nephrology Progress Note ---
Date of Encounter: 07/13/18 Time of Encounter: 12:52 - Assessment and Plan (1) CKD (chronic kidney disease) stage 3, GFR 30-59 ml/min Current Visit: Yes Status: Acute Is followed by Dr. Cardoso in the office for CKD 3. GFR is 42. Edema to lower extremities has improved slightly since yesterday. Continue current diuretic regimen. Strict I/O 1.5 Liter fluid restriction. Low na/cardiac diet. Avoid nephrotoxins and renal dose. (2) Acute exacerbation of chronic obstructive pulmonary disease (COPD) Current Visit: Yes Status: Acute Per primary. (3) Acute on chronic diastolic heart failure with preserved ejection fraction Current Visit: Yes Status: Acute Per primary. (4) Diabetes mellitus Current Visit: Yes Status: Acute Per primary. Qualifiers: Qualified Code(s): E11.9 - Type 2 diabetes mellitus without complications Subjective Principal diagnosis: difficulty in breathing, bilat lower extremity edema Interval history: Pt seen and examined, doing well. Admits to feeling fatigued, is still short of breath. Denies CP. Objective - Vital Signs Vital signs: Vital Signs Temp Pulse Resp BP Pulse Ox 07/13/18 12:27 97.7 F 65 20 173/51 97 07/13/18 11:18 16 98 07/13/18 09:06 98 07/13/18 07:00 97.6 F 67 16 157/62 98 07/13/18 03:52 12 94 07/12/18 23:45 12 97 07/12/18 23:31 98.1 F 59 18 167/51 98 07/12/18 19:50 12 100 07/12/18 15:37 18 96 07/12/18 15:20 98.4 F 61 14 136/51 94 Intake and Output 07/12/18 07/13/18 07/13/18 23:59 07:59 15:59 Intake Total 520 / 520 0 / 0 Output Total 350 / 350 800 / 800 Balance 520 / 520 -350 / -350 -800 / -800 Intake: IV Fluids 100 / 100 Doxycycline 100 MG In 0.9 % 100 / 100 Sodium Chloride (Mini-Bag +) 100 ML @ 100 mls/hr IVPB Q12HR [facility] Rx#:[id number] Oral 420 / 420 0 / 0 Output: Urine 350 / 350 800 / 800 Other: Meal Breakfast Percent of Meal Consumed 50% Weight 136.3 kg Blood Glucose* 166 73 138 Patient Weight 07/13/18 23:59 Weight 136.3 kg - General Appearance General appearance: Present: well-developed, well-nourished EENT: Present: ATNC, hearing intact, vision intact Neck: Present: supple Respiratory: Present: clear Cardiology: Present: edema (+2 pitting edema noted to bilat lower extremities.), normal S1, normal S2 Gastrointestinal: Present: normoactive bowel sounds, no tenderness, no guarding Integumentary: Present: no rash, warm and dry Neurologic: Present: alert and oriented x3 Musculoskeletal: Present: no deformities Psychiatric: Present: mood/affect appropriate, cooperative - Lab 07/13/18 06:29 07/13/18 06:29 Most recent lab results Calcium 9.7 mg/dL (8.6-10.3) 07/13/18 06:29 Phosphorus 3.4 mg/dL (2.7-4.5) 07/12/18 05:49 Magnesium 1.8 mg/dL (1.6-2.6) 07/12/18 05:49 Urine Creatinine 56 mg/dL 07/12/18 15:12 Urine Total Protein 33 mg/dL (1-14) H 07/12/18 15:12 Consult Discharge Plan - Plan Referrals: Lang Jarvis DO [Primary Care Provider] - 07/18/18 11:30 am
--- NOTE | 2018-07-13 14:56 | Internal Med Progress Note ---
Hospitalist Progress Note - Encounter Date of Encounter: 07/13/18 Time of Encounter: 14:53 - Subjective Interval History: Ms. Feliciano is a 62 year old female history of hypertension, diabetes, hyperlipidemia, coronary artery disease with stenting 2 last in 2017, chronic diastolic CHF, paroxysmal A. fib, CK-MB, hypothyroidism, COPD, OLIVER, history of DVT not on anticoagulation due to GI bleed, BRADFORD and morbid obesity Presented to the emergency department with complaint of bilateral lower extremity swelling and worsening shortness of breath. She does have significant right pleural effusion. Patient was admitted in the hospital and started on IV Lasix and IV steroids. Currently she is on 2 lit oxygen which is her baseline. Patient stated she still having moderate shortness of breath and dyspnea on exertion. She denied any chest pain. Her bilateral lower extremity edema also improving. - Exam Vitals: Temp Pulse Resp BP Pulse Ox 97.7 F 65 20 173/51 97 07/13/18 12:27 07/13/18 12:27 07/13/18 12:27 07/13/18 12:27 07/13/18 12:27 Exam: Gen: Alert, awake, Oriented to time,place and person Chest: Diminished breath sounds B/L, mild wheezing, No crackles, mild rales Heart: S1S2+ RRR No murmurs Abd: Soft, NT, BS +, No organomegaly, distended Ext: 2 + pitting edema edema, pulses are palpable, No calf tenderness Neuro : Benign findings Skin: No rash. - Assessment and Plan (1) Acute on chronic diastolic heart failure with preserved ejection fraction Current Visit: Yes Status: Acute Assessment and Plan: Reviewed Echo showed preserved LVEF. Mild left ventricular diastolic dysfunction continue diuresis with IV Lasix 40 b.i.d. Held BB due to bradycardia (2) Bradycardia Current Visit: Yes Status: Acute Assessment and Plan: Improved by holding beta bianca continue holding beta bianca appreciate cardiology recommendations resumed amiodarone (3) DM (diabetes mellitus), type 2 Current Visit: No Status: Chronic Assessment and Plan: ADA diet ISS ACHS (4) DVT prophylaxis Current Visit: No Status: Acute Assessment and Plan: Heparin subcutaneous (5) Acute exacerbation of chronic obstructive pulmonary disease (COPD) Current Visit: Yes Status: Acute Assessment and Plan: Improving oxygen puentes at baseline switch to oral steroids continue bronchodilator therapy continue prophylactic antibiotic doxycycline (6) Lower extremity edema Current Visit: Yes Status: Acute Assessment and Plan: Due to CHF exacerbation improving continue Lasix (7) Morbidly obese Current Visit: Yes Status: Acute Assessment and Plan: BMI 50.2 nurtition consult (8) ARF (acute renal failure) Current Visit: Yes Status: Acute Assessment and Plan: ANGÉLICA with CKD-3 improving continue gentle diuresis avoid nephrotoxic medications (9) Pleural effusion Current Visit: Yes Status: Acute Assessment and Plan: Status post thoracocentesis removed 650 mL fluid will follow-up on the fluid culture does look more like transudate (10) Atrial fibrillation Current Visit: Yes Status: Acute Assessment and Plan: Paroxysmal a fib rate controlled held beta bianca due to bradycardia resumed amiodarone not on anticoagulation due to G.I. bleed in the past (11) OLIVER (obstructive sleep apnea) Current Visit: Yes Status: Acute Assessment and Plan: not compliant to bipap at home bipap at nights 07/12 Compliant with BiPAP at home BiPAP at night and as needed (12) New onset left bundle branch block (LBBB) Current Visit: Yes Status: Acute Assessment and Plan: . (13) Hypothyroidism (acquired) Current Visit: Yes Status: Acute Assessment and Plan: Continue with Synthroid TSH 1.171 - Time Spent with Patient Total time spent is greater than 50% in coordination of care (as documented) at patient's floor/unit and/or counseling patient: Internal Medicine: Result - Labs CBC & Chem 7: 07/13/18 06:29 07/13/18 06:29 Labs: Short CBC 07/13/18 Range/Units 06:29 WBC 7.1 (4.3-11.1) K/mcL Hgb 7.2 L (11.5-15.4) g/dL Hct 23.1 L (35.3-44.9) % Plt Count 181 (140-400) K/mcL Neutrophils # 6.3 (1.6-8.9) K/mcL BMP 07/13/18 06:29 Sodium 136 Potassium 4.0 Chloride 100 Carbon Dioxide 30 H BUN 60 H Creatinine 1.26 H Glucose 70 Calcium 9.7 - ABG Interpretation ABG results: PT/INR, D-dimer PT 14.1 Seconds (9.4-12.1) H 07/12/18 05:49 - Impressions Impressions Thoracentesis 07/12/18 12:19 IMPRESSION: Successful ultrasound guided right thoracentesis. Postprocedure chest radiograph to be done. D/ / Preston Kilgore / Preston Kilgore Interpreting Provider: Preston Kilgore Consult Discharge Plan - Plan Referrals: Lang Jarvis DO [Primary Care Provider] - 07/18/18 11:30 am (3) DM (diabetes mellitus), type 2 Qualifiers: Diabetes mellitus alf insulin use: with intermediate project manager use Diabetes mellitus complication status: with kidney complications Diabetes mellitus complication detail: with chronic kidney disease Chronic kidney disease stage: stage 3 (moderate) Qualified Code(s): E11.22 - Type 2 diabetes mellitus with diabetic chronic kidney disease; N18.3 - Chronic kidney disease, stage 3 (moderate); Z79.4 - FPC (current) use of insulin (8) ARF (acute renal failure) Qualifiers: Acute renal failure type: unspecified Qualified Code(s): N17.9 - Acute kidney failure, unspecified (10) Atrial fibrillation Qualifiers: Atrial fibrillation type: chronic Qualified Code(s): I48.2 - Chronic atrial fibrillation
[2018-07-13] MEDS: Insulin LISPRO 300 UNITS/3 ML VIAL SQ SCH ×2 (17:10→20:51)
--- NOTE | 2018-07-13 20:07 | Electrocardiograph Report ---
[facility] Test Date: 2018-07-11 Pat Name: Ashley Feliciano Department: EXAM17 Room: 3B35 Gender: F Special Events Manager: : [id number] Requested By: Sidney Bergman Order Number: [id number] Reading MD: Brian Vargas Measurements Intervals [place] Rate: 48 P: 10 ND: 234 QRS: -59 QRSD: 142 T: 98 QT: 526 QTc: 470 Interpretive Statements Sinus bradycardia Borderline prolonged ND interval Left bundle branch block POOR R WAVE PROGRESSION Electronically Signed On 07-13-2018 20:05:28 EST by Brian Vargas
[2018-07-13] MEDS: Melatonin 3 MG TABLET PO SCH (20:49)
[2018-07-13] MEDS: Benzonatate 100 MG CAPSULE PO PRN (22:05)
[2018-07-14] MEDS: Albuterol 2.5 MG/3 ML NEBULIZER IH SCH ×5 (03:41→21:01)
[2018-07-14 05:19] LABS: Eosinophils % 0.2 %; Hematocrit 26.8 % (35.3-44.9); Hemoglobin 8.1 g/dL (11.5-15.4); Immature Granulocytes % 0.4 % (0-4); Lymphocytes % 9.9 %; Mean Corpuscular HGB Conc 30.2 g/dL (31.6-35.5); Mean Corpuscular Hemoglobin 26.5 pg (28.0-33.3); Mean Corpuscular Volume 87.6 fL (83.0-100.0); Monocytes % 9.2 %; Neutrophils # 8.4 K/mcL (1.6-8.9); Platelet Count 201 K/mcL (140-400); Red Blood Count 3.06 M/mcL (3.82-4.97); Red Cell Distribution Width 17.2 % (11.5-14.5); Segmented Neutrophils % 80.3 %
[2018-07-14] MEDS: *HR* Heparin 5,000 UNIT/ML VIAL SQ SCH ×3 (05:38→20:47)
[2018-07-14] MEDS: Doxycycline 100 MG in 0.9 % Sodium Chloride Mini Bag 100 ML IVPB SCH ×2 (05:39→16:30)
[2018-07-14 05:41] LABS: Calcium 9.7 mg/dL (8.6-10.3); Potassium 3.9 mEq/L (3.5-5.1)
[2018-07-14] MEDS: Budesonide/Formoterol 160/4.5 1 PUFF INH IH SCH ×2 (07:25→21:03)
[2018-07-14 08:37] LABS: Fluid Source for Albumin PLEURAL FL
[2018-07-14] MEDS: Furosemide 40 MG/4 ML VIAL IVP SCH ×2 (08:40→16:30)
[2018-07-14] MEDS: Pregabalin 75 MG CAPSULE PO SCH ×3 (08:41→20:47)
[2018-07-14] MEDS: Aspirin Enteric Coated 81 MG Tablet PO SCH (08:41)
[2018-07-14] MEDS: Cholecalciferol (D-3) 1,000 UNIT TABLET PO SCH (08:41)
[2018-07-14] MEDS: *HR* Amiodarone 200 MG TABLET PO SCH (08:41)
[2018-07-14] MEDS: FLUoxetine 20 MG CAPSULE PO SCH (08:41)
[2018-07-14] MEDS: amLODIPine 5 MG TABLET PO SCH (08:41)
[2018-07-14] MEDS: Insulin LISPRO 300 UNITS/3 ML VIAL SQ SCH ×4 (08:42→20:47)
[2018-07-14] MEDS: Lactulose Oral Soln 20 GM/30 ML UDC PO SCH ×3 (08:42→20:47)
--- NOTE | 2018-07-14 11:03 | Internal Med Progress Note ---
Hospitalist Progress Note - Encounter Date of Encounter: 07/14/18 Time of Encounter: 11:01 - Subjective Interval History: Ms. Feliciano is a 62 year old female history of hypertension, diabetes, hyperlipidemia, coronary artery disease with stenting 2 last in 2017, chronic diastolic CHF, paroxysmal A. fib, CK-MB, hypothyroidism, COPD, OLIVER, history of DVT not on anticoagulation due to GI bleed, BRADFORD and morbid obesity Presented to the emergency department with complaint of bilateral lower extremity swelling and worsening shortness of breath. She does have significant right pleural effusion. Patient was admitted in the hospital and started on IV Lasix and IV steroids. Currently she is on 2 lit oxygen which is her baseline. Patient stated she still having moderate shortness of breath and dyspnea on exertion. She denied any chest pain. Her bilateral lower extremity edema also improving. No events over night. - Exam Vitals: Temp Pulse Resp BP Pulse Ox 97.4 F L 57 16 153/67 98 07/14/18 07:12 07/14/18 07:12 07/14/18 07:25 07/14/18 07:12 07/14/18 07:25 Exam: Gen: Alert, awake, Oriented to time,place and person Chest: Diminished breath sounds B/L, mild wheezing, No crackles, mild rales Heart: S1S2+ RRR No murmurs Abd: Soft, NT, BS +, No organomegaly, distended Ext: 2 + pitting edema edema, pulses are palpable, No calf tenderness Neuro : Benign findings Skin: No rash. - Assessment and Plan (1) Acute on chronic diastolic heart failure with preserved ejection fraction Current Visit: Yes Status: Acute Assessment and Plan: Reviewed Echo showed preserved LVEF. Mild left ventricular diastolic dysfunction continue diuresis with IV Lasix 40 b.i.d. Also added Aldactone 50mg PO Daily..Monitor Cr closely Held BB due to bradycardia (2) Bradycardia Current Visit: Yes Status: Acute Assessment and Plan: Improved by holding beta bianca continue holding beta bianca appreciate cardiology recommendations resumed amiodarone (3) Acute exacerbation of chronic obstructive pulmonary disease (COPD) Current Visit: Yes Status: Acute Assessment and Plan: Improving oxygen [place] at baseline switch to oral steroids continue bronchodilator therapy continue prophylactic antibiotic doxycycline (4) Lower extremity edema Current Visit: Yes Status: Acute Assessment and Plan: Due to CHF exacerbation improving continue Lasix (5) ARF (acute renal failure) Current Visit: Yes Status: Acute Assessment and Plan: ANGÉLICA with CKD-3 improving continue gentle diuresis avoid nephrotoxic medications (6) Pleural effusion Current Visit: Yes Status: Acute Assessment and Plan: Most likely due to CHF exacerbation Status post thoracocentesis removed 650 mL fluid will follow-up on the fluid culture does look more like transudate (7) Atrial fibrillation Current Visit: Yes Status: Acute Assessment and Plan: Paroxysmal a fib rate controlled held beta bianca due to bradycardia resumed amiodarone not on anticoagulation due to G.I. bleed in the past (8) Ascites Current Visit: Yes Status: Acute Assessment and Plan: Concerning for ascities due to BRADFORD will consult IR for paracentesis cont Lasix Added Aldactone (9) BRADFORD (nonalcoholic steatohepatitis) Current Visit: Yes Status: Acute (10) DM (diabetes mellitus), type 2 Current Visit: No Status: Chronic Assessment and Plan: ADA diet ISS ACHS (11) Hypothyroidism (acquired) Current Visit: Yes Status: Acute Assessment and Plan: Continue with Synthroid TSH 1.171 (12) New onset left bundle branch block (LBBB) Current Visit: Yes Status: Acute Assessment and Plan: . (13) OLIVER (obstructive sleep apnea) Current Visit: Yes Status: Acute Assessment and Plan: not compliant to bipap at home bipap at nights 07/12 Compliant with BiPAP at home BiPAP at night and as needed (14) Morbidly obese Current Visit: Yes Status: Acute Assessment and Plan: BMI 50.2 nurtition consult (15) DVT prophylaxis Current Visit: No Status: Acute Assessment and Plan: Heparin subcutaneous - Time Spent with Patient Total time spent is greater than 50% in coordination of care (as documented) at patient's floor/unit and/or counseling patient: Internal Medicine: Result - Labs CBC & Chem 7: 07/14/18 04:30 07/14/18 04:30 Labs: Short CBC 07/14/18 Range/Units 04:30 WBC 10.4 (4.3-11.1) K/mcL Hgb 8.1 L (11.5-15.4) g/dL Hct 26.8 L (35.3-44.9) % Plt Count 201 (140-400) K/mcL Neutrophils # 8.4 (1.6-8.9) K/mcL BMP 07/14/18 04:30 Sodium 138 Potassium 3.9 Chloride 101 Carbon Dioxide 29 BUN 59 H Creatinine 1.26 H Glucose 64 L Calcium 9.7 - ABG Interpretation ABG results: PT/INR, D-dimer PT 14.1 Seconds (9.4-12.1) H 07/12/18 05:49 Consult Discharge Plan - Plan Referrals: Lang Jarvis DO [Primary Care Provider] - 07/18/18 11:30 am (5) ARF (acute renal failure) Qualifiers: Acute renal failure type: unspecified Qualified Code(s): N17.9 - Acute kidney failure, unspecified (7) Atrial fibrillation Qualifiers: Atrial fibrillation type: chronic Qualified Code(s): I48.2 - Chronic atrial fibrillation (10) DM (diabetes mellitus), type 2 Qualifiers: Diabetes mellitus termite helper insulin use: with termite helper use Diabetes mellitus complication status: with kidney complications Diabetes mellitus complication detail: with chronic kidney disease Chronic kidney disease stage: stage 3 (moderate) Qualified Code(s): E11.22 - Type 2 diabetes mellitus with diabetic chronic kidney disease; N18.3 - Chronic kidney disease, stage 3 (moderate); Z79.4 - tank terminal gauger (current) use of insulin
[2018-07-14] MEDS: predniSONE 20 MG TABLET PO SCH (12:37)
[2018-07-14] MEDS: (Subcutaneous Insulin Pump [T:Slim] 1 EACH) MC SCH (12:47)
--- NOTE | 2018-07-14 14:35 | Nephrology Progress Note ---
Date of Encounter: 07/14/18 Time of Encounter: 14:32 - Assessment and Plan (1) CKD (chronic kidney disease) stage 3, GFR 30-59 ml/min Current Visit: Yes Status: Acute Is followed by Dr. Cardoso in the office for CKD 3. GFR is 47. Edema to lower extremities continues to improve. Continue current diuretic regimen, could possibly transition to PO diuretics tomorrow. Strict I/O 1.5 Liter fluid restriction. Low na/cardiac diet. Avoid nephrotoxins and renal dose. (2) Acute exacerbation of chronic obstructive pulmonary disease (COPD) Current Visit: Yes Status: Acute Per primary. Code(s): J44.1 - Chronic obstructive pulmonary disease with (acute) exacerbation (3) Acute on chronic diastolic heart failure with preserved ejection fraction Current Visit: Yes Status: Acute Per primary. (4) Diabetes mellitus Current Visit: Yes Status: Acute Per primary. Qualifiers: Qualified Code(s): E11.9 - Type 2 diabetes mellitus without complications Subjective Principal diagnosis: difficulty in breathing, bilat lower extremity edema Interval history: Pt seen and examined, doing well. Bilat lower extremity edema improved. Objective - Vital Signs Vital signs: Vital Signs Temp Pulse Resp BP Pulse Ox 07/14/18 11:42 97.8 F 66 16 164/65 95 07/14/18 07:25 16 98 07/14/18 07:12 97.4 F L 57 16 153/67 97 07/14/18 03:57 97.5 F L 57 16 151/73 95 07/14/18 03:42 20 99 07/13/18 23:31 20 98 07/13/18 22:41 97.4 F L 60 16 154/48 93 07/13/18 20:56 95 07/13/18 18:49 98 F 60 16 164/53 94 07/13/18 15:22 20 96 07/13/18 15:15 98.4 F 65 20 162/64 96 Intake and Output 07/13/18 07/14/18 07/14/18 23:59 07:59 15:59 Intake Total 340 / 340 100 / 100 600 / 600 Output Total 600 / 600 1100 / 1100 Balance -260 / -260 100 / 100 -500 / -500 Intake: IV Fluids 100 / 100 100 / 100 Doxycycline 100 MG In 0.9 % 100 / 100 100 / 100 Sodium Chloride (Mini-Bag +) 100 ML @ 100 mls/hr IVPB Q12HR [facility] Rx#:[id number] Oral 240 / 240 600 / 600 Output: Urine 600 / 600 1100 / 1100 Other: Meal Dinner Lunch Percent of Meal Consumed 100% 100% Weight 135.3 kg Blood Glucose* 114 75 46 Patient Weight 07/14/18 23:59 Weight 135.3 kg - General Appearance General appearance: Present: well-developed, well-nourished, obese EENT: Present: ATNC, hearing intact, vision intact Neck: Present: supple Respiratory: Present: clear Cardiology: Present: edema (+1 pitting edema noted to bilat lower extremities.), normal S1, normal S2 Gastrointestinal: Present: normoactive bowel sounds, no tenderness, no guarding Integumentary: Present: no rash, warm and dry Neurologic: Present: alert and oriented x3 Psychiatric: Present: mood/affect appropriate, cooperative - Lab 07/14/18 04:30 07/14/18 04:30 Most recent lab results Calcium 9.7 mg/dL (8.6-10.3) 07/14/18 04:30 Phosphorus 3.4 mg/dL (2.7-4.5) 07/12/18 05:49 Magnesium 1.8 mg/dL (1.6-2.6) 07/12/18 05:49 Urine Creatinine 56 mg/dL 07/12/18 15:12 Urine Total Protein 33 mg/dL (1-14) H 07/12/18 15:12 Consult Discharge Plan - Plan Referrals: Lang Jarvis DO [Primary Care Provider] - 07/18/18 11:30 am
[2018-07-14] MEDS ORDERED: traMADol 50 MG TABLET PO PRN (16:33)
[2018-07-14] MEDS: Melatonin 3 MG TABLET PO SCH (20:47)
[2018-07-15] MEDS: Albuterol 2.5 MG/3 ML NEBULIZER IH SCH ×3 (00:38→07:27)
[2018-07-15] MEDS: Benzonatate 100 MG CAPSULE PO PRN (01:17)
[2018-07-15 04:51] LABS: Hematocrit 24.2 % (35.3-44.9); Hemoglobin 7.4 g/dL (11.5-15.4); Immature Granulocytes % 0.5 % (0-4); Lymphocytes # 0.5 K/mcL (0.6-4.6); Lymphocytes % 8.1 %; Mean Corpuscular HGB Conc 30.6 g/dL (31.6-35.5); Mean Corpuscular Hemoglobin 26.7 pg (28.0-33.3); Mean Corpuscular Volume 87.4 fL (83.0-100.0); Monocytes # 0.5 K/mcL (0.0-1.3); Monocytes % 7.1 %; Neutrophils # 5.6 K/mcL (1.6-8.9); Platelet Count 147 K/mcL (140-400); Red Blood Count 2.77 M/mcL (3.82-4.97); Red Cell Distribution Width 17.2 % (11.5-14.5); Segmented Neutrophils % 84.3 %
[2018-07-15 05:10] LABS: Calcium 9.1 mg/dL (8.6-10.3); Potassium 4.9 mEq/L (3.5-5.1)
[2018-07-15] MEDS: *HR* Heparin 5,000 UNIT/ML VIAL SQ SCH (05:50)
[2018-07-15] MEDS: Doxycycline 100 MG in 0.9 % Sodium Chloride Mini Bag 100 ML IVPB SCH (05:50)
[2018-07-15] MEDS: Budesonide/Formoterol 160/4.5 1 PUFF INH IH SCH (07:27)
[2018-07-15 07:41] VITALS: BP 159/67
[2018-07-15] MEDS: Furosemide 40 MG/4 ML VIAL IVP SCH (08:16)
[2018-07-15] MEDS: predniSONE 20 MG TABLET PO SCH (08:17)
[2018-07-15] MEDS: Insulin LISPRO 300 UNITS/3 ML VIAL SQ SCH (08:17)
[2018-07-15] MEDS: Cholecalciferol (D-3) 1,000 UNIT TABLET PO SCH (08:18)
[2018-07-15] MEDS: FLUoxetine 20 MG CAPSULE PO SCH (08:18)
[2018-07-15] MEDS: Aspirin Enteric Coated 81 MG Tablet PO SCH (08:18)
[2018-07-15] MEDS: Lactulose Oral Soln 20 GM/30 ML UDC PO SCH (08:19)
[2018-07-15] MEDS: amLODIPine 5 MG TABLET PO SCH (08:19)
[2018-07-15] MEDS: *HR* Amiodarone 200 MG TABLET PO SCH (08:19)
[2018-07-15] MEDS: Pregabalin 75 MG CAPSULE PO SCH (08:19)
--- NOTE | 2018-07-15 10:44 | Discharge Summary ---
- NOTES TO OUTPATIENT PROVIDER Notes to Outpatient Provider: Follow up with PCP in one week. follow-up with the nephrology in one week. please stop taking metoprolol since your heart rate is running low. please continue taking Lasix 40 mg PO b.i.d., Also start taking spironolactone 50 mg PO daily for your b/l LEG edema and Abdomen swelling Orders not resulted at time of discharge: Pending orders 07/11/18 12:19 Albumin,Body Fluid Routine 07/11/18 12:23 Culture,Blood [BC] Stat Procalcitonin Stat Date of Encounter: 07/15/18 Time of Encounter: 10:39 - Discharge Diagnosis (1) Acute on chronic diastolic heart failure with preserved ejection fraction Priority: Primary Status: Acute (2) Acute exacerbation of chronic obstructive pulmonary disease (COPD) Priority: Primary Status: Acute (3) Bradycardia Priority: Secondary Status: Acute (4) Lower extremity edema Priority: Secondary Status: Acute (5) ARF (acute renal failure) Priority: Secondary Status: Acute Qualifiers: Acute renal failure type: unspecified Qualified Code(s): N17.9 - Acute kidney failure, unspecified (6) Pleural effusion Priority: Secondary Status: Acute (7) Atrial fibrillation Priority: Secondary Status: Acute Qualifiers: Atrial fibrillation type: chronic Qualified Code(s): I48.2 - Chronic atrial fibrillation (8) Ascites Priority: Secondary Status: Acute Qualifiers: Ascites type: other type Qualified Code(s): R18.8 - Other ascites (9) BRADFORD (nonalcoholic steatohepatitis) Priority: Secondary Status: Acute (10) DM (diabetes mellitus), type 2 Priority: Secondary Status: Chronic Qualifiers: Diabetes mellitus nursing home insulin use: with supervisor long goods use Diabetes mellitus complication status: with kidney complications Diabetes mellitus complication detail: with chronic kidney disease Chronic kidney disease stage: stage 3 (moderate) Qualified Code(s): E11.22 - Type 2 diabetes mellitus with diabetic chronic kidney disease; N18.3 - Chronic kidney disease, stage 3 (moderate); Z79.4 - alf (current) use of insulin (11) Hypothyroidism (acquired) Priority: Secondary Status: Acute (12) New onset left bundle branch block (LBBB) Priority: Secondary Status: Acute (13) OLIVER (obstructive sleep apnea) Priority: Secondary Status: Acute (14) Morbidly obese Priority: Secondary Status: Acute (15) DVT prophylaxis Priority: Secondary Status: Acute Hospital course: Ms. Feliciano is a 62 year old female history of hypertension, diabetes, hyperlipidemia, coronary artery disease with stenting 2 last in 2017, chronic diastolic CHF, paroxysmal A. fib, CK-MB, hypothyroidism, COPD, OLIVER, history of DVT not on anticoagulation due to GI bleed, BRADFORD and morbid obesity Presented to the emergency department with complaint of bilateral lower extremity swelling and worsening shortness of breath. She does have significant right pleural effusion. Patient was admitted in the hospital and started on IV Lasix and IV steroids. She happened to have bradycardia that was in 50s. So discontinued her metoprolol and continued amiodarone only. Now her heart rate in low 60s. Regarding her right pleural effusion she did go for empirical synthesis and the more 650 mL transudate fluid which is mostly due to CHF. With IV diuresis her symptoms improved and currently she is on 3 lit oxygen which is her baseline. She does have mild ascities too, unable to do paracentesis. Added Aldactone to her diuretic regimen. Will d/c her home in stable condition today with [facility]. - Time Spent with Patient Total time spent providing and/or coordinating discharge services: Greater than 30 minutes (Spent 45 minutes on this patient's discharge summary due to complex medical problems and patient needed a lot of education regarding discharge instructions) - Discharge Medications Prescriptions: Doxycycline Hyclate 100 mg PO BID #4 tablet predniSONE [PredniSONE] 40 mg PO DAILY #10 tablet Spironolactone [Aldactone] 50 mg PO DAILY #30 tablet Home Medications: Albuterol Neb [Proventil Neb] 2.5 mg IH Q4H 02/07/16 [History] Albuterol Sulfate [Proventil Hfa] 2 puff IH Q4H PRN 02/07/16 [History] Pregabalin [Lyrica] 75 mg PO TID 02/07/16 [History] Melatonin 10 mg PO HS #30 capsule 02/11/16 [Rx] Budesonide/Formoterol 160/4.5 [Symbicort 160/4.5] 2 puff IH BIDR 30 Days inhaler 03/03/16 [Rx] Cholecalciferol (Vitamin D3) [Dialyvite Vitamin D] 5,000 unit PO QAM 03/27/16 [History] Omeprazole 40 mg PO QPM 03/27/16 [History] Amiodarone [Cordarone] 200 mg PO DAILY #30 tablet 04/11/16 [Rx] Acetaminophen [Tylenol] 500 mg PO Q6HR PRN 06/12/16 [History] Oxygen 4 l NS AD 06/12/16 [History] Febuxostat [Uloric] 80 mg PO DAILY 09/10/16 [History] Lisinopril [Zestril] 40 mg PO DAILY #30 tablet 10/16/16 [Rx] amLODIPine [Norvasc] 10 mg PO DAILY #30 tablet 10/16/16 [Rx] Atorvastatin Calcium [Lipitor] 20 mg PO HS 01/02/17 [History] Aspirin [Lo-Dose Aspirin EC] 81 mg PO DAILY 11/09/17 [History] FLUoxetine HCl [Prozac] 20 mg PO DAILY 11/09/17 [History] Montelukast [Singulair] 10 mg PO DAILY 11/09/17 [History] Subcutaneous Insulin Pump [T:Slim] 1 each MC AD 11/30/17 [History] Furosemide [Lasix] 40 mg PO BID 07/11/18 [History] Lactulose [Enulose] 10 gm PO TID 07/11/18 [History] Levothyroxine Sodium [Levoxyl] 175 mcg PO QAM 07/11/18 [History] Doxycycline Hyclate 100 mg PO BID #4 tablet 07/15/18 [Rx] Spironolactone [Aldactone] 50 mg PO DAILY #30 tablet 07/15/18 [Rx] predniSONE [PredniSONE] 40 mg PO DAILY #10 tablet 07/15/18 [Rx] Allergies/Adverse Reactions: Allergy/AdvReac Type Severity Reaction Status Date / Time ciprofloxacin [From Cipro] Allergy Severe Anaphylaxis Verified 07/11/18 09:28 clarithromycin [From Biaxin] Allergy Severe Hives Verified 07/11/18 09:28 clonidine Allergy Severe Anaphylaxis Verified 07/11/18 09:28 levofloxacin [From Levaquin] Allergy Severe Anaphylaxis Verified 07/11/18 09:28 Warfarin Allergy Severe Difficulty Verified 07/11/18 09:28 Breathing Cefaclor Allergy Anaphylaxis Verified 07/11/18 09:28 codeine Allergy Rash Verified 07/11/18 09:28 Ertapenem [From Invanz] Allergy Rash Verified 07/11/18 09:28 Hydralazine Allergy Hives Verified 07/11/18 09:28 sulfamethoxazole Allergy Hives Verified 07/11/18 09:28 [From Bactrim] trimethoprim [From Bactrim] Allergy Hives Verified 07/11/18 09:28 tiotropium AdvReac Severe Blurry Verified 07/11/18 09:28 [From Spiriva with Vision HandiHaler] acarbose AdvReac Blurry Verified 07/11/18 09:28 Vision atorvastatin [From Lipitor] AdvReac Muscle Pain Verified 07/11/18 09:28 fenofibrate [From Tricor] AdvReac Muscle Pain Verified 07/11/18 09:28 rivaroxaban [From Xarelto] AdvReac Gastrointestinal Verified 07/11/18 09:28 Upset Date of admission: 07/11/18 14:24 Primary care physician: Lang Jarvis DO Consults: 07/11/18 11:33 Consult to Nephrology [CONS] Stat Consulting Provider: Kidney Addie/MARCIANO/PARVEEN/HAZEL Reason for Consult: ANGÉLICA in setting of CKD, CHF and on lasix 60 BID Call Completed: No 07/11/18 11:59 Consult to Case Management [CONS] Routine Comment: Consult to Nutrition [CONS] Routine Comment: Consulting Provider: NUTRITION Reason for Dietary Consult: PO Supplementation Consult to Physical Therapy [CONS] Routine Comment: Evaluate, develop and implement POC Reason for Consult: dispostion Does patient have active BEDREST order?: No Is patient medically & hemodynamically stable?: Yes Patient assessed for mobility or mobilized this visit?: Yes 07/11/18 12:00 Consult to Cardiology [CONS] Stat Comment: Consulting Provider: Cardiology Addie Reason for Consult: having on/off CP along with CHF exacerbation, follows with Dr. braxton as OP Call Completed: No 07/11/18 12:20 Consult to Interventional Radiology [CONS] Routine Consulting Provider: Radiology Interventional Cols Reason for Consult: pleural effusion Call Completed: No 07/14/18 11:06 Consult to Interventional Radiology [CONS] Routine Consulting Provider: Radiology Interventional Cols Reason for Consult: Paracentesis Call Completed: No - Constitutional Vitals: Temp Pulse Resp BP Pulse Ox 98.4 F 52 16 159/67 99 07/15/18 07:40 07/15/18 07:40 07/15/18 07:40 07/15/18 07:40 07/15/18 07:40 General appearance: Present: cooperative, A&O X 3, answers questions appropriately Exam: Gen: Alert, awake, Oriented to time,place and person Chest: Diminished breath sounds B/L, mild wheezing, No crackles, mild rales Heart: S1S2+ RRR No murmurs Abd: Soft, NT, BS +, No organomegaly, distended Ext: 1 + pitting edema edema, pulses are palpable, No calf tenderness Neuro : Benign findings Skin: No rash. - Patient Status Disposition: Home Health Service Condition: Good Overall status at discharge: patient is back to baseline - Discharge Instructions Follow Up With: Lang Jarvis DO [Primary Care Provider] - 07/18/18 11:30 am True Atkins DO [Partnered Physician] - - Diet and Activity Activity: as per physical therapy, increase activity as tolerated, wear oxygen at all times Diet: low salt diet
--- NOTE | 2018-07-15 10:47 | Physician Discharge Referral ---
Home Health/Hosp Referral Info Transfer to: Home Health, Hospice ([facility]) Provider in Charge Post Discharge: [employer]iner - Diagnosis (1) Acute on chronic diastolic heart failure with preserved ejection fraction Status: Acute (2) Acute exacerbation of chronic obstructive pulmonary disease (COPD) Status: Acute (3) Bradycardia Status: Acute (4) Lower extremity edema Status: Acute (5) ARF (acute renal failure) Status: Acute (6) Pleural effusion Status: Acute (7) Atrial fibrillation Status: Acute (8) Ascites Status: Acute (9) BRADFORD (nonalcoholic steatohepatitis) Status: Acute (10) DM (diabetes mellitus), type 2 Status: Chronic (11) Hypothyroidism (acquired) Status: Acute (12) New onset left bundle branch block (LBBB) Status: Acute (13) OLIVER (obstructive sleep apnea) Status: Acute (14) Morbidly obese Status: Acute (15) DVT prophylaxis Status: Acute - Respiratory Orders Smoking Cessation: Smoking cessation has been advised. For more information, call the [employer] Quit Line at 2-939-FKMX-NOW. - Transfer Medications Prescriptions: Doxycycline Hyclate 100 mg PO BID #4 tablet predniSONE [PredniSONE] 40 mg PO DAILY #10 tablet Spironolactone [Aldactone] 50 mg PO DAILY #30 tablet Home Medications: Albuterol Neb [Proventil Neb] 2.5 mg IH Q4H 02/07/16 [History] Albuterol Sulfate [Proventil Hfa] 2 puff IH Q4H PRN 02/07/16 [History] Pregabalin [Lyrica] 75 mg PO TID 02/07/16 [History] Melatonin 10 mg PO HS #30 capsule 02/11/16 [Rx] Budesonide/Formoterol 160/4.5 [Symbicort 160/4.5] 2 puff IH BIDR 30 Days inhaler 03/03/16 [Rx] Cholecalciferol (Vitamin D3) [Dialyvite Vitamin D] 5,000 unit PO QAM 03/27/16 [History] Omeprazole 40 mg PO QPM 03/27/16 [History] Amiodarone [Cordarone] 200 mg PO DAILY #30 tablet 04/11/16 [Rx] Acetaminophen [Tylenol] 500 mg PO Q6HR PRN 06/12/16 [History] Oxygen 4 l NS AD 06/12/16 [History] Febuxostat [Uloric] 80 mg PO DAILY 09/10/16 [History] Lisinopril [Zestril] 40 mg PO DAILY #30 tablet 10/16/16 [Rx] amLODIPine [Norvasc] 10 mg PO DAILY #30 tablet 10/16/16 [Rx] Atorvastatin Calcium [Lipitor] 20 mg PO HS 01/02/17 [History] Aspirin [Lo-Dose Aspirin EC] 81 mg PO DAILY 11/09/17 [History] FLUoxetine HCl [Prozac] 20 mg PO DAILY 11/09/17 [History] Montelukast [Singulair] 10 mg PO DAILY 11/09/17 [History] Subcutaneous Insulin Pump [T:Slim] 1 each MC AD 11/30/17 [History] Furosemide [Lasix] 40 mg PO BID 07/11/18 [History] Lactulose [Enulose] 10 gm PO TID 07/11/18 [History] Levothyroxine Sodium [Levoxyl] 175 mcg PO QAM 07/11/18 [History] Doxycycline Hyclate 100 mg PO BID #4 tablet 07/15/18 [Rx] Spironolactone [Aldactone] 50 mg PO DAILY #30 tablet 07/15/18 [Rx] predniSONE [PredniSONE] 40 mg PO DAILY #10 tablet 07/15/18 [Rx] Allergies/Adverse Reactions: Allergy/AdvReac Type Severity Reaction Status Date / Time ciprofloxacin [From Cipro] Allergy Severe Anaphylaxis Verified 07/11/18 09:28 clarithromycin [From Biaxin] Allergy Severe Hives Verified 07/11/18 09:28 clonidine Allergy Severe Anaphylaxis Verified 07/11/18 09:28 levofloxacin [From Levaquin] Allergy Severe Anaphylaxis Verified 07/11/18 09:28 Warfarin Allergy Severe Difficulty Verified 07/11/18 09:28 Breathing Cefaclor Allergy Anaphylaxis Verified 07/11/18 09:28 codeine Allergy Rash Verified 07/11/18 09:28 Ertapenem [From Invanz] Allergy Rash Verified 07/11/18 09:28 Hydralazine Allergy Hives Verified 07/11/18 09:28 sulfamethoxazole Allergy Hives Verified 07/11/18 09:28 [From Bactrim] trimethoprim [From Bactrim] Allergy Hives Verified 07/11/18 09:28 tiotropium AdvReac Severe Blurry Verified 07/11/18 09:28 [From Spiriva with Vision HandiHaler] acarbose AdvReac Blurry Verified 07/11/18 09:28 Vision atorvastatin [From Lipitor] AdvReac Muscle Pain Verified 07/11/18 09:28 fenofibrate [From Tricor] AdvReac Muscle Pain Verified 07/11/18 09:28 rivaroxaban [From Xarelto] AdvReac Gastrointestinal Verified 07/11/18 09:28 Upset Certification: Further, I certify that my clinical findings support that this patient is homebound (i.e. absences from home require considerable and taxing effort and are for medical reasons or adventism services or infrequently or short duration when for other reasons) because: Homebound Reason: Patient requires assistance of a person or device to safely l eave home Attestation: My signature below is to certify that this patient is under my care and that I, or nurse practitioner, or a physician's operating room assistant working with me, has a [id number] encounter with this patient.
--- NOTE | 2018-07-15 12:38 | Event Note ---
Date of Encounter: 07/15/18 Time of Encounter: 10:05 Pt discharged before I could see her. However I did speak with Dr. Coronado regarding outpatient medications. Advised to restart Lasix 40 mg PO BID. BMP in 7 days, and follow up in September with Dr. Cardoso in the office.
== END 2018-07-15 11:17 | disposition home health service (06) | DRG 291 ==
LOC: 3BNU 09:13 → EMEROOARM 09:13 → 3BNU 12:57
PROVIDERS: ADMIT Internal Medicine; ATTEND Internal Medicine

== ENCOUNTER 2018-10-27 03:16 | Inpatient (IN) ==
[2018-10-27] MEDS ORDERED: 0.9 % Sodium Chloride 1,000 ML IVC ONE (03:26)
--- NOTE | 2018-10-27 03:41 | Emergency Department Note ---
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, Elevated troponin Sepsis Qualifiers: Sepsis type: sepsis due to unspecified organism Qualified Code(s): A41.9 - Sepsis, unspecified organism UTI (urinary tract infection) Qualifiers: Urinary tract infection type: acute cystitis Hematuria presence: with hematuria Qualified Code(s): N30.01 - Acute cystitis with hematuria Disposition: Admitted As Inpatient Condition: Undetermined Referrals: Lang Jarvis DO [Primary Care Provider] - Forms: ED Satisfaction Letter Time of Disposition: 05:28 Fever HPI - General Chief Complaint: ED Fever Stated Complaint: fever/low blood pressure Time Seen by Provider: 10/27/18 03:25 Source: patient, EMS Mode of arrival: EMS Limitations: no limitations Nursing Notes Reviewed: Yes Vital Signs Reviewed: Yes - History of Present Illness HPI Narrative: 63-year-old female diabetic who currently lives in a correction facility with a chronic ulceration of her sacrum arrives to the emergency department with complaint of fever, ill feeling. Noted on the nursing staff that despite antibiotics, ertapenem and levofloxacin through a right upper extremity PICC line, the patient is continued to experience worsening L feeling, and fevers. Apparently the patient had an episode of alteration in mentation from baseline secondary to the fever. Patient denies any other complaints at this time other than "feeling ill". She denies any cough, congestion, abdominal pain, neck pain. She is lucid and answering questions with a GCS of 15 on arrival to the emergency department. Patient has a chronic ulceration of her sacrum as well as what appears to be an ulceration of her anterior abdomen. Patient has no tenderness on palpation of her abdomen. Patient is noted to be febrile upon arrival here. - Related Data Home Medications Medication Instructions Recorded Confirmed RX: Subcutaneous Insulin Pump 1 each MC AD 11/30/17 09/24/18 [T:Slim] RX: Acetaminophen [Extra Strength 500 mg PO Q6H PRN 09/13/18 09/24/18 Non-Aspirin] RX: Albuterol Sulfate [Albuterol 2 puff IH Q6H PRN 09/13/18 09/24/18 Inhaler] RX: Amiodarone [Cordarone] 200 mg PO DAILY 09/13/18 09/24/18 RX: Aspirin Enteric Coated 81 mg PO DAILY 09/13/18 09/24/18 [Aspirin EC] RX: Atorvastatin [Lipitor] 20 mg PO HS 09/13/18 09/24/18 RX: Bisacodyl [Dulcolax] 10 mg RC DAILY PRN 09/13/18 09/24/18 RX: Budesonide/Formoterol 160/4.5 2 puff IH BIDR 09/13/18 09/24/18 [Symbicort 160/4.5] RX: Cholecalciferol (D-3) [Vitamin 5,000 unit PO DAILY 09/13/18 09/24/18 D] RX: Docusate [Colace] 100 mg PO BID PRN 09/13/18 09/24/18 RX: FLUoxetine HCl [Sarafem] 20 mg PO DAILY 09/13/18 09/24/18 RX: Febuxostat [Uloric] 80 mg PO QPM 09/13/18 09/24/18 RX: Ferrous Gluconate 324 mg PO DAILY 09/13/18 09/24/18 RX: Furosemide [Lasix] 60 mg PO BID 09/13/18 09/24/18 RX: Glucagon,Human Recombinant 1 mg IJ AD PRN 09/13/18 09/24/18 [Glucagon Emergency Kit] RX: Levothyroxine [Synthroid] 175 mcg PO 0630 09/13/18 09/24/18 RX: Lisinopril [Zestril] 40 mg PO DAILY 09/13/18 09/24/18 RX: Melatonin 10 mg PO HS 09/13/18 09/24/18 RX: Metoprolol XL (24 HR) Succ 25 mg PO QPM 09/13/18 09/24/18 [Toprol Xl] RX: Montelukast [Singulair] 10 mg PO QPM 09/13/18 09/24/18 RX: Multivitamin [One Daily 1 each PO DAILY 09/13/18 09/24/18 Essential] RX: Omeprazole [PriLOSEC] 40 mg PO QPM 09/13/18 09/24/18 RX: Pregabalin [Lyrica] 75 mg PO TID 09/13/18 09/24/18 RX: Spironolactone 50 mg PO DAILY 09/13/18 09/24/18 RX: amLODIPine [Norvasc] 10 mg PO DAILY 09/13/18 09/24/18 RX: Lactulose [Enulose] 20 gm PO TID 09/24/18 09/24/18 Previous Rx's Medication Instructions Recorded RX: predniSONE [PredniSONE] 5 mg PO DAILY #0 09/15/18 RX: Insulin DETEMIR [Levemir] 10 unit SQ BID [id number] 09/19/18 RX: Insulin LISPRO [HumaLOG] 0 units SQ HS vial 09/19/18 RX: Insulin LISPRO [HumaLOG] 0 units SQ TIDAC vial 09/19/18 RX: Ondansetron [Zofran] 8 mg IVP Q6H PRN vial 09/19/18 RX: Promethazine [Phenergan] 12.5 mg IVP Q4HR PRN vial 09/19/18 RX: Leptospermum Honey [Medihoney] 1 appl TP DAILY #30 tube 09/20/18 Allergies Allergy/AdvReac Type Severity Reaction Status Date / Time ciprofloxacin [From Cipro] Allergy Severe Anaphylaxis Verified 07/11/18 09:28 clarithromycin [From Biaxin] Allergy Severe Hives Verified 07/11/18 09:28 clonidine Allergy Severe Anaphylaxis Verified 07/11/18 09:28 levofloxacin [From Levaquin] Allergy Severe Anaphylaxis Verified 07/11/18 09:28 Warfarin Allergy Severe Difficulty Verified 07/11/18 09:28 Breathing Cefaclor Allergy Anaphylaxis Verified 07/11/18 09:28 codeine Allergy Rash Verified 07/11/18 09:28 Ertapenem [From Invanz] Allergy Rash Verified 07/11/18 09:28 Hydralazine Allergy Hives Verified 07/11/18 09:28 sulfamethoxazole Allergy Hives Verified 07/11/18 09:28 [From Bactrim] trimethoprim [From Bactrim] Allergy Hives Verified 07/11/18 09:28 tiotropium AdvReac Severe Blurry Verified 07/11/18 09:28 [From Spiriva with Vision HandiHaler] acarbose AdvReac Blurry Verified 07/11/18 09:28 Vision atorvastatin [From Lipitor] AdvReac Muscle Pain Verified 07/11/18 09:28 fenofibrate [From Tricor] AdvReac Muscle Pain Verified 07/11/18 09:28 rivaroxaban [From Xarelto] AdvReac Gastrointestinal Verified 07/11/18 09:28 Upset All systems ED: reviewed and negative except as stated. Constitutional: Reports: fever, chills, weakness Eyes: Denies: vision change ENT ED: Denies: throat pain, dysphagia Cardiovascular: Denies: chest pain Respiratory: Denies: cough, dyspnea, sputum production Gastrointestinal: Denies: abdominal pain, nausea, vomiting Genitourinary: Denies: urgency, dysuria Musculoskeletal: Denies: back pain, neck pain Integumentary: Denies: rash Neurological: Reports: weakness. Denies: headache, numbness, paresthesias, confusion Fever PMH - Past Medical History Medical history: Reports: atrial fibrillation, CHF, COPD, coronary artery disease, DVT, diabetes, GI bleed, hyperlipidemia, hypertension, myocardial infarction, renal disease, thyroid disease, other Surgical history: Reports: non-contributory Surgical history: Reports: angioplasty/stent, other Psychiatric history: Reports: anxiety, depression DIRECTOR [employer]ODUCT SAFETY history: Reports: no DIRECTOR [employer]AF[employer] history - Social History Smoking Status: Former smoker Alcohol use: Reports: none Drug use: Reports: none Physical Exam - General Limitations: no limitations General appearance: alert, in no apparent distress - Head Head exam: atraumatic, normocephalic, normal inspection - Eye Eye exam: Present: normal appearance, PERRL, EOMI - ENT ENT exam: normal exam, normal oropharynx, mucous membranes moist - Neck Neck exam: Present: normal inspection, full ROM, trachea midline - Chest Chest inspection: Present: normal inspection, symmetric chest wall rise - Respiratory Respiratory exam: Present: normal lung sounds bilaterally - Cardiovascular Cardiovascular exam: Present: regular rate, normal rhythm, normal heart sounds - Abdominal Exam Abdominal exam: Present: soft, Non-Tender, other (Chronic ulceration on the anterior abdomen.). Absent: tenderness, distention, guarding, rebound, rigidity - Rectal Exam Rectal exam: Present: other (Patient appears to have a sacral ulceration stage 3-[address]. [address] Heart amount of stool just at the inferior aspect of wound.) - Extremities Exam Extremities exam: Present: normal inspection, full ROM. Absent: tenderness, pedal edema - Neurological Exam Neurological exam: Present: alert, oriented X3, CN II-XII intact - Skin Skin exam: Present: warm, dry, normal color, erythema (Surrounding wound of the sacrum.) Course Vital Signs Temperature 101.1 F H 10/27/18 03:27 Pulse Rate 75 10/27/18 03:27 Respiratory Rate 19 10/27/18 03:27 Blood Pressure 111/39 10/27/18 03:27 O2 Sat by Pulse Oximetry 97 10/27/18 03:27 Temperature 101.1 F H 10/27/18 03:27 Pulse Rate 68 10/27/18 05:04 Respiratory Rate 14 10/27/18 05:04 Blood Pressure 102/41 10/27/18 05:04 O2 Sat by Pulse Oximetry 98 10/27/18 05:04 Oxygen Delivery Oxygen Delivery Nasal Cannula Fever - MDM Narrative Medical decision making narrative: Patient's workup in the emergency department demonstrates findings concerning for acute kidney injury as well as sepsis secondary to urinary tract infection. The patient will be admitted to the hospital. She was started on levofloxacin and ertapenem at nursing facility. Patient has no other acute complaints at this time. The patient's sacral ulcer does appear mildly erythematous but I do not feel as this is the direct source of the patient's sepsis. The patient will be admitted to the hospitalist. Accepted by Dr. Ricardo. - Lab Data Lab results reviewed: Yes I reviewed the patient's lab results. Result diagrams: 10/27/18 03:35 10/27/18 03:35 Lab Results 10/27/18 10/27/18 10/27/18 Range/Units 03:35 03:35 03:35 WBC 13.2 H (4.3-11.1) K/mcL RBC 2.98 L (3.82-4.97) M/mcL Hgb 8.2 L (11.5-15.4) g/dL Hct 25.9 L (35.3-44.9) % MCV 86.9 (83.0-100.0) fL MCH 27.5 L (28.0-33.3) pg MCHC 31.7 (31.6-35.5) g/dL RDW 17.5 H (11.5-14.5) % Plt Count 228 (140-400) K/mcL MPV 11.3 (9.4-12.4) fL Immature Gran % 0.5 (0-4) % Seg Neutrophils % 68.2 % Lymphocytes % 17.5 % Monocytes % 9.5 % Eosinophils % 3.7 % Basophils % 0.6 % Neutrophils # 9.0 H (1.6-8.9) K/mcL Lymphocytes # 2.3 (0.6-4.6) K/mcL Monocytes # 1.3 (0.0-1.3) K/mcL Eosinophils # 0.5 (0.0-0.6) K/mcL Basophils # 0.1 (0.0-0.2) K/mcL APTT 36.9 H (26.0-36.0) Seconds Sodium 135 L (136-145) mEq/L Potassium 4.2 (3.5-5.1) mEq/L Chloride 103 (98-107) mEq/L Carbon Dioxide 22 L (23-29) mEq/L BUN 53 H (8-23) mg/dL Creatinine 1.76 H (0.60-1.20) mg/dL Est GFR ( Amer) 35 L (> 60) Est GFR (Non-Af Amer) 29 L (> 60) BUN/Creatinine Ratio 30 H (6-26) Glucose 128 H (70-105) mg/dL Calculated Osmolality 296 (280-300) Lactic Acid (0.5-2.2) mmol/L Calcium 7.9 L (8.6-10.3) mg/dL Magnesium 1.5 L (1.6-2.6) mg/dL Total Bilirubin 0.8 (0.3-1.0) mg/dL Direct Bilirubin 0.3 H (0.0-0.2) mg/dL Indirect Bilirubin 0.5 (0.0-1.2) mg/dL AST 149 H (13-39) Units/L ALT 32 (7-52) Units/L Alkaline Phosphatase 157 H (34-104) Units/L Troponin I 0.04 H* (< 0.04) ng/mL Serum Total Protein 5.3 L (6.4-8.9) g/dL Albumin 1.9 L (3.5-5.7) g/dL Globulin 3.4 (2.4-3.5) g/dL Albumin/Globulin Ratio 0.6 L (1.1-2.2) Urine Color (Yellow) Urine Clarity (Clear) Urine pH (5.0-8.0) pH Units Ur Specific Sherwood (1.010-1.025) Urine Protein (Neg-Trace) mg/dL Urine Glucose (UA) (Normal) mg/dL Urine Ketones (Negative) mg/dL Urine Blood (Negative) Urine Nitrite (Negative) Urine Bilirubin (Negative) Urine Urobilinogen (Normal) mg/dL Ur Leukocyte Esterase (Negative) Urine Microscopic RBC (0-3) per hpf Urine Microscopic WBC (0-3) per hpf Ur Squamous Epith Cells (None-Few) per lpf Urine Bacteria (None-Few) per hpf Hyaline Casts (None-Few) per lpf Urine Yeast (None Seen) per hpf Ur Culture Indicated? (NO) 10/27/18 10/27/18 Range/Units 03:35 03:48 WBC (4.3-11.1) K/mcL RBC (3.82-4.97) M/mcL Hgb (11.5-15.4) g/dL Hct (35.3-44.9) % MCV (83.0-100.0) fL MCH (28.0-33.3) pg MCHC (31.6-35.5) g/dL RDW (11.5-14.5) % Plt Count (140-400) K/mcL MPV (9.4-12.4) fL Immature Gran % (0-4) % Seg Neutrophils % % Lymphocytes % % Monocytes % % Eosinophils % % Basophils % % Neutrophils # (1.6-8.9) K/mcL Lymphocytes # (0.6-4.6) K/mcL Monocytes # (0.0-1.3) K/mcL Eosinophils # (0.0-0.6) K/mcL Basophils # (0.0-0.2) K/mcL APTT (26.0-36.0) Seconds Sodium (136-145) mEq/L Potassium (3.5-5.1) mEq/L Chloride (98-107) mEq/L Carbon Dioxide (23-29) mEq/L BUN (8-23) mg/dL Creatinine (0.60-1.20) mg/dL Est GFR ( Amer) (> 60) Est GFR (Non-Af Amer) (> 60) BUN/Creatinine Ratio (6-26) Glucose (70-105) mg/dL Calculated Osmolality (280-300) Lactic Acid 1.8 (0.5-2.2) mmol/L Calcium (8.6-10.3) mg/dL Magnesium (1.6-2.6) mg/dL Total Bilirubin (0.3-1.0) mg/dL Direct Bilirubin (0.0-0.2) mg/dL Indirect Bilirubin (0.0-1.2) mg/dL AST (13-39) Units/L ALT (7-52) Units/L Alkaline Phosphatase (34-104) Units/L Troponin I (< 0.04) ng/mL Serum Total Protein (6.4-8.9) g/dL Albumin (3.5-5.7) g/dL Globulin (2.4-3.5) g/dL Albumin/Globulin Ratio (1.1-2.2) Urine Color Dark Yellow (Yellow) Urine Clarity Turbid A (Clear) Urine pH 5.0 (5.0-8.0) pH Units Ur Specific [place]wood 1.024 (1.010-1.025) Urine Protein Trace (Neg-Trace) mg/dL Urine Glucose (UA) Normal (Normal) mg/dL Urine Ketones Negative (Negative) mg/dL Urine Blood Moderate H (Negative) Urine Nitrite Negative (Negative) Urine Bilirubin Small H (Negative) Urine Urobilinogen Normal (Normal) mg/dL Ur Leukocyte Esterase Large H (Negative) Urine Microscopic RBC 0-3 (0-3) per hpf Urine Microscopic WBC TNTC H (0-3) per hpf Ur Squamous Epith Cells Many H (None-Few) per lpf Urine Bacteria None Seen (None-Few) per hpf Hyaline Casts None Seen (None-Few) per lpf Urine Yeast Many H (None Seen) per hpf Ur Culture Indicated? NO. A (NO) - Radiology Data Radiology results reviewed: Yes I reviewed the patient's radiology results. Chest X-Ray 10/27/18 03:26 IMPRESSION: Stable examination with moderate central pulmonary vascular congestion. Left lung discoid atelectasis. D/ / Frandy Malone / Frandy Malone Interpreting Provider: Frandy Malone - EKG Data EKG attestation: Yes I reviewed and interpreted this EKG. EKG results narrative: Heart rate 76 beats for minute. Normal sinus rhythm. No ST elevation or ST depression noted. No acute changes noted. Critical Care Time Critical Care Time: Yes Total Critical Care Time: 33 Attestation: Acute altered mental status. Attestation Statement - Attestation Attestation: Dr. Lucas note: Patient was seen with resident Dr. Jae Fraga. Please see his charting for complete documentation. I spent [id number] time with the patient and agree with the patient's treatment and disposition. [facility] to altered mental status and fever tonight. Heart rate and blood pressure stable at time of admission. Patient just started Levaquin today. Obvious source of infection is unclear but could include urine, bacteremia, or sacral decubitus ulcer. Patient admitted in stable and improved condition.
[2018-10-27 03:51] LABS: Basophils # 0.1 K/mcL (0.0-0.2); Basophils % 0.6 %; Eosinophils # 0.5 K/mcL (0.0-0.6); Eosinophils % 3.7 %; Hematocrit 25.9 % (35.3-44.9); Hemoglobin 8.2 g/dL (11.5-15.4); Immature Granulocytes % 0.5 % (0-4); Lymphocytes # 2.3 K/mcL (0.6-4.6); Lymphocytes % 17.5 %; Mean Corpuscular HGB Conc 31.7 g/dL (31.6-35.5); Mean Corpuscular Hemoglobin 27.5 pg (28.0-33.3); Mean Corpuscular Volume 86.9 fL (83.0-100.0); Mean Platelet Volume 11.3 fL (9.4-12.4); Monocytes # 1.3 K/mcL (0.0-1.3); Monocytes % 9.5 %; Platelet Count 228 K/mcL (140-400); Red Blood Count 2.98 M/mcL (3.82-4.97); Red Cell Distribution Width 17.5 % (11.5-14.5); Segmented Neutrophils % 68.2 %
[2018-10-27 03:57] LABS: Bilirubin,Urine Small (Negative); Blood,Urine Moderate (Negative); Clarity,Urine Turbid (Clear); Color,Urine Dark Yellow (Yellow); Glucose,Urine (UA) Normal (Normal); Ketones,Urine Negative (Negative); Leukocyte Esterase,Urine Large (Negative); Nitrite,Urine Negative (Negative); Protein,Urine Trace mg/dL (Neg-Trace); Specific Gravity,Urine 1.024 (1.010-1.025); Urobilinogen,Urine Normal (Normal)
[2018-10-27 03:59] LABS: Bacteria,Urine None Seen per hpf (None-Few); Squamous Epithelial Cell,Urine Many per lpf (None-Few); WBC,Urine TNTC per hpf (0-3)
[2018-10-27 04:10] LABS: Albumin 1.9 g/dL (3.5-5.7); Albumin/Globulin Ratio 0.6 (1.1-2.2); Bilirubin,Direct 0.3 mg/dL (0.0-0.2); Bilirubin,Indirect 0.5 mg/dL (0.0-1.2); Bilirubin,Total 0.8 mg/dL (0.3-1.0); Calcium 7.9 mg/dL (8.6-10.3); Globulin 3.4 g/dL (2.4-3.5); Magnesium 1.5 mg/dL (1.6-2.6); Potassium 4.2 mEq/L (3.5-5.1); Total Protein 5.3 g/dL (6.4-8.9)
[2018-10-27 04:16] LABS: Hyaline Casts,Urine None Seen per lpf (None-Few); RBC,Urine 0-3 per hpf (0-3)
[2018-10-27 04:17] LABS: Yeast,Urine Many per hpf (None Seen)
[2018-10-27 04:29] LABS: Troponin I 0.04 ng/mL (< 0.04)
[2018-10-27] MEDS ORDERED: Aspirin 325 MG TABLET PO ONE (04:33)
[2018-10-27] MEDS ORDERED: 0.9 % Sodium Chloride 1,000 ML IVC SCH (07:30)
--- NOTE | 2018-10-27 07:58 | Internal Med History&Physical ---
Date of Encounter: 10/27/18 Time of Encounter: 07:56 Internal Medicine - H&P: HPI Chief complaint: fever Admitted From: Long-term Nursing Facility Plans for Post Hospital Care: Transfer Care Home Facility History of present illness: Ms. Feliciano is a 63 year old female history of atrial fibrillation not on anticoagulation, heart failure preserved EF 6065%, pulmonary hypertension, COPD, obesity, OLIVER and chronic sacral ulcer presented to the emergency department from custodial with complaint of fever. As per patient she started feeling warm and more weak than her baseline the day before admission which progressively worsened throughout the day. Cannot recall alleviating or aggravating factors. As per custodial documentation she was treated with IV Levaquin through a PICC line for a urinary tract infection stop Date was 11/04/2018. Currently the patient has no complaints. Reports that the fevers and chills have resolved. Denies shortness of breath, cough does have chronic diarrhea as she is on lactulose. Denies dysuria, abdominal pain, chest pain, palpitations, shortness of breath or wheezing. Past Med Surg Social Fam HX - Past Medical History Medical history: atrial fibrillation, CHF, COPD, coronary artery disease, DVT, diabetes, GI bleed, hyperlipidemia, hypertension, myocardial infarction, renal disease, thyroid disease, other Additional medical history: hemrhoids,gout, fatty liver, decub to buttocks Psychiatric history: anxiety, depression - Past Surgical History Surgical History: angioplasty/stent, other Additional surgical history: 1 cardiac stents. right leg procedure for DVT - Social History Smoking Status: Former smoker Smokeless Tobacco Status: No Alcohol use: none Drug use: none - Family History Mother Family Member Ethnicity: Non- Living Status: Still Living Hx Family Cardiac Disorders: Yes Hx Family Endocrine Disorder: Yes (DM) Hx Family Neurologic Disorders: Yes (Dementia) Brother Family Member Ethnicity: Non- Living Status: Hx Family Cancer: Yes (colon cancer) Son Family Member Ethnicity: Non- Living Status: Still Living Hx Family GI Disorders: Yes (high grade dysplasia polyps) Father Adopted: No Family Member Ethnicity: Non- Living Status: Hx Family Cardiac Disorders: Yes (heart attack) Hx Family Respiratory Disorders: Yes (breathing issues) Hx Family Cancer: No Hx Family GI Disorders: No Hx Family Endocrine Disorder: No Hx Family Neuromuscular Disorders: No Hx Family Neurologic Disorders: No Hx Family HEENT Disorders: No Hx Family Autoimmune Disorders: No Internal Medicine - H&P: Meds RX: Acetaminophen [Extra Strength Non-Aspirin] 500 mg PO Q6H PRN 09/13/18 [History] RX: Albuterol Sulfate [Albuterol Inhaler] 2 puff IH Q6H PRN 09/13/18 [History] RX: Amiodarone [Cordarone] 200 mg PO DAILY 09/13/18 [History] RX: Aspirin Enteric Coated [Aspirin EC] 81 mg PO DAILY 09/13/18 [History] RX: Atorvastatin [Lipitor] 20 mg PO HS 09/13/18 [History] RX: Bisacodyl [Dulcolax] 10 mg RC DAILY PRN 09/13/18 [History] RX: Budesonide/Formoterol 160/4.5 [Symbicort 160/4.5] 2 puff IH BIDR 09/13/18 [History] RX: Cholecalciferol (D-3) [Vitamin D] 5,000 unit PO DAILY 09/13/18 [History] RX: Docusate [Colace] 100 mg PO BID PRN 09/13/18 [History] RX: Febuxostat [Uloric] 40 mg PO QPM 09/13/18 [History] RX: Ferrous Gluconate 324 mg PO DAILY 09/13/18 [History] RX: Furosemide [Lasix] 60 mg PO BID 09/13/18 [History] RX: Glucagon,Human Recombinant [Glucagon Emergency Kit] 1 mg IJ AD PRN 09/13/18 [History] RX: Lisinopril [Zestril] 40 mg PO DAILY 09/13/18 [History] RX: Metoprolol XL (24 HR) Succ [Toprol Xl] 25 mg PO QPM 09/13/18 [History] RX: Montelukast [Singulair] 10 mg PO HS 09/13/18 [History] RX: Multivitamin [One Daily Essential] 1 each PO DAILY 09/13/18 [History] RX: Omeprazole [PriLOSEC] 40 mg PO QPM 09/13/18 [History] RX: Pregabalin [Lyrica] 75 mg PO TID 09/13/18 [History] RX: Leptospermum Honey [Medihoney] 1 appl TP DAILY #30 tube 09/20/18 [Rx] RX: Lactulose [Enulose] 30 gm PO BID 09/24/18 [History] Ertapenem [INVanz] 1,000 mg IVPB DAILY 10/27/18 [History] Insulin ASPART [NovoLOG] 0 unit SQ ACHS 10/27/18 [History] Insulin DETEMIR [Levemir] 13 unit SQ BID 10/27/18 [History] Levothyroxine [Synthroid] 75 mcg PO 0630 10/27/18 [History] Loratadine [Allergy Relief] 10 mg PO DAILY 10/27/18 [History] Urea/Alpha Hydroxy Acids [Atrac-Tain Cream] 142 gm TP BID 10/27/18 [History] Allergy/AdvReac Type Severity Reaction Status Date / Time ciprofloxacin [From Cipro] Allergy Severe Anaphylaxis Verified 07/11/18 09:28 clarithromycin [From Biaxin] Allergy Severe Hives Verified 07/11/18 09:28 clonidine Allergy Severe Anaphylaxis Verified 07/11/18 09:28 levofloxacin [From Levaquin] Allergy Severe Anaphylaxis Verified 07/11/18 09:28 Warfarin Allergy Severe Difficulty Verified 07/11/18 09:28 Breathing Cefaclor Allergy Anaphylaxis Verified 07/11/18 09:28 codeine Allergy Rash Verified 07/11/18 09:28 Hydralazine Allergy Hives Verified 07/11/18 09:28 sulfamethoxazole Allergy Hives Verified 07/11/18 09:28 [From Bactrim] trimethoprim [From Bactrim] Allergy Hives Verified 07/11/18 09:28 tiotropium AdvReac Severe Blurry Verified 07/11/18 09:28 [From Spiriva with Vision HandiHaler] acarbose AdvReac Blurry Verified 07/11/18 09:28 Vision atorvastatin [From Lipitor] AdvReac Muscle Pain Verified 07/11/18 09:28 fenofibrate [From Tricor] AdvReac Muscle Pain Verified 07/11/18 09:28 rivaroxaban [From Xarelto] AdvReac Gastrointestinal Verified 07/11/18 09:28 Upset All Systems PM: A 10-system review of systems was performed and is negative for pertinent findings except as documented above in the HPI. - Constitutional Vitals: Temp Pulse Resp BP Pulse Ox 98.4 F 58 19 96/53 96 10/27/18 07:35 02/21/19 07:35 10/27/18 07:35 10/27/18 07:35 10/27/18 07:35 Exam: General: Patient is alert, oriented, no acute distress lemon on a stick body habitus Head: atraumatic, normocephalic, Eye: normal appearance, PERRL, no scleral icterus, no conjunctival injection ENT: mucous membranes moist, normal external ear exam Neck: normal inspection, trachea midline, full ROM, no carotid bruits Chest: normal inspection, symmetric chest rise Respiratory: decreased breathsounds secondary to body habitus, Good respiratory effort. Bilateral breath sounds are clear without wheezing, crackles, or rhonchi. Cardiovascular: distant heart sounds secondary to body habitus, bradycardic s1 and s2 No clicks, rubs, gallops, or murmors. Abdomen: Bowel sounds present normoactive x-4 quadrants. Abdomen is soft, nondistended. no Epigastric tenderness. No guarding or rebound. No organomegaly noted, obese, has a small superficial ulcer in the epigastric area. musculoskeletal: Spontaneously moving all extremities. thin no edema, no calf tenderness Skin: warm, dry, intact. stage 4 sacral ulcer - packed with gauze Neuro: Alert and oriented x4. no focal deficit Psych: Patient's affect is normal Internal Med - H&P Results - Labs CBC & Chem 7: 10/27/18 03:35 10/27/18 03:35 Labs: Short CBC 10/27/18 Range/Units 03:35 WBC 13.2 H (4.3-11.1) K/mcL Hgb 8.2 L (11.5-15.4) g/dL Hct 25.9 L (35.3-44.9) % Plt Count 228 (140-400) K/mcL Neutrophils # 9.0 H (1.6-8.9) K/mcL BMP 10/27/18 03:35 Sodium 135 L Potassium 4.2 Chloride 103 Carbon Dioxide 22 L BUN 53 H Creatinine 1.76 H Glucose 128 H Calcium 7.9 L Cardiac Enzymes 10/27/18 Range/Units 03:35 Troponin I 0.04 H* (< 0.04) ng/mL Liver Function 10/27/18 Range/Units 03:35 Total Bilirubin 0.8 (0.3-1.0) mg/dL Direct Bilirubin 0.3 H (0.0-0.2) mg/dL AST 149 H (13-39) Units/L ALT 32 (7-52) Units/L Alkaline Phosphatase 157 H (34-104) Units/L Albumin 1.9 L (3.5-5.7) g/dL Urine 10/27/18 Range/Units 03:48 Urine Color Dark Yellow (Yellow) Urine Clarity Turbid A (Clear) Urine pH 5.0 (5.0-8.0) pH Units Ur Specific [place] 1.024 (1.010-1.025) Urine Protein Trace (Neg-Trace) mg/dL Urine Glucose (UA) Normal (Normal) mg/dL - EKG Data -: EKG Interpreted by Myself (sinus rhythm with non specific IVCD adn LAD QTC 519) - EKG Data Prior EKG available for review: yes When compared to previous EKG: there is no significant change - Impressions ITS Impressions Chest X-Ray 10/27/18 03:26 IMPRESSION: Stable examination with moderate central pulmonary vascular congestion. Left lung discoid atelectasis. D/ / Frandy Malone / Frandy Malone Interpreting Provider: Frandy Malone - Assessment and plan (1) Sepsis Current Visit: No Status: Ruled-out Assessment and plan: Sepsis secondary to urinary tract infection versus sacral ulcer Leukocytosis of 13.2, fever of 101.1 Lactic acid 1.8 Was started on vancomycin and IVANZ- discussed with pharmacist she is not allergic to penicillin as she is received on previous admissions- and is receiving since 10/20. Follow blood cultures We will start her on gentle hydration watch for overload ESR, CRP Follow blood culture and urine cultures and adjust antibiotics as per cultures CT abdomen and pelvis to evaluate the sacral ulcer- depending on the imaging we will consult surgery Wound care consult Qualifiers: Sepsis type: sepsis due to unspecified organism Qualified Code(s): A41.9 - Sepsis, unspecified organism (2) Sacral decubitus ulcer, stage IV Current Visit: Yes Status: Acute Assessment and plan: 4 x 4 centimeter sacral ulcer, packed from the custodial ? osteomyelitis was started on ertapenem at the nursing ( since 10/20) will continue along with vancomycin MRSA swab ID consulted will follow recommendations ESR, CRP Wound care was consulted Follow CT abdomen and pelvis We will consider surgery consult pending CT abdomen and pelvis results (3) UTI (urinary tract infection) Current Visit: No Status: Ruled-out Assessment and plan: UA positive Was started on Levaquin at the custodial to complete course on November 04 We will hold Levaquin and started her on Zosyn as she also has a sacral ulcer Qualifiers: Urinary tract infection type: site unspecified Qualified Code(s): N39.0 - Urinary tract infection, site not specified; R31.9 - Hematuria, unspecified (4) Acute renal failure superimposed on stage 3 chronic kidney disease Current Visit: Yes Status: Acute Assessment and plan: Creatinine was 1.15 on 10/24 Creatinine now is 1.76 Continue with gentle hydration We will follow CT abdomen and pelvis to rule out hydronephrosis Avoid nephrotoxic medications Qualifiers: Acute renal failure type: unspecified Qualified Code(s): N17.9 - Acute kidney failure, unspecified; N18.3 - Chronic kidney disease, stage 3 (moderate) (5) Elevated troponin Current Visit: Yes Status: Acute Assessment and plan: Mostly secondary to supply versus demand mismatch next I will continue to follow every 6 hours along with EKG was given ASA 325 mg in the ED- continue with ASA 81 mg daily Not on beta blockers due to bradycardia- as per cardiology documentation in 2017- currently bradycardic- will hold BB Continue with aspirin and atorvastatin (6) Cirrhosis Current Visit: No Status: Chronic Assessment and plan: History of cirrhosis secondary to Nath Ammonia stat Continue lactulose to ensure 3-4 bowel movements daily Avoid hepatotoxic medications Qualifiers: Hepatic cirrhosis type: other cirrhosis Qualified Code(s): K74.69 - Other cirrhosis of liver (7) Morbidly obese Current Visit: No Status: Chronic Assessment and plan: Nutrition consult (8) OLIVER (obstructive sleep apnea) Current Visit: No Status: Chronic Assessment and plan: CPAP at night's with home setting (9) Paroxysmal a-fib Current Visit: No Status: Chronic Assessment and plan: Continue home medications if not contraindicated Not on anticoagulation (10) Chronic anemia Current Visit: Yes Status: Acute Assessment and plan: Baseline hemoglobin ranges anywhere from 7.8- 8.6 Currently hemoglobin is 8.2 We will continue to monitor H&H Transfuse below 8 as she has history of heart disease Type and screen continue iron supplements (11) Hypomagnesemia Current Visit: Yes Status: Acute Assessment and plan: replaced (12) Prolonged QT interval Current Visit: Yes Status: Acute Assessment and plan: QTC 516 magnesium was 1.5 replaced follow EKG in 6 hrs and evaluate for QT (13) DVT prophylaxis Current Visit: Yes Status: Acute Assessment and plan: SCDs consider heparin sc if H/H is stable - Time Spent With Patient Total time spent is greater than 50% in coordination of care (as documented) at patient's floor/unit and/or counseling patient:
[2018-10-27] MEDS ORDERED: Vancomycin 1,750 MG in 0.9 % Sodium Chloride 250 ML IVPB SCH (08:00)
[2018-10-27] MEDS ORDERED: Aztreonam 1,000 MG in 0.9 % Sodium Chloride Mini Bag 100 ML IVPB SCH (08:00)
[2018-10-27] MEDS ORDERED: Piperacillin/Tazobactam 3.375 GM in 0.9 % Sodium Chloride Mini Bag 100 ML IVPB SCH (08:00)
[2018-10-27] MEDS ORDERED: Naloxone 0.4 MG/ML INJ IVP PRN (08:39)
[2018-10-27] MEDS ORDERED: Bisacodyl 10 MG RECTAL SUPPOSITORY RC PRN (08:47)
[2018-10-27] MEDS ORDERED: [UNRECOGNIZED DRUG - OTHER] TP SCH (09:00)
[2018-10-27] MEDS ORDERED: UREA TP SCH (09:00)
[2018-10-27] MEDS ORDERED: ALPHA HYDROXY ACIDS TP SCH (09:00)
[2018-10-27] MEDS: 0.9 % Sodium Chloride 1,000 ML IVC SCH (09:04)
[2018-10-27 09:05] LABS: Troponin I 0.03 ng/mL (< 0.04)
[2018-10-27] MEDS: Multivit/Ca/Min/Fe/FA 1 TAB TABLET PO SCH (09:54)
[2018-10-27] MEDS: Pregabalin 75 MG CAPSULE PO SCH ×3 (09:54→20:53)
[2018-10-27] MEDS: Loratadine 10 MG TABLET PO SCH (09:54)
[2018-10-27] MEDS: Cholecalciferol (D-3) 1,000 UNIT TABLET PO SCH (09:55)
[2018-10-27] MEDS: Lactulose Oral Soln 20 GM/30 ML UDC PO SCH ×2 (09:55→20:52)
[2018-10-27] MEDS: Aspirin Enteric Coated 81 MG Tablet PO SCH (09:55)
[2018-10-27] MEDS: Ertapenem 1,000 MG in 0.9 % Sodium Chloride Mini Bag 100 ML IVPB SCH (10:59)
--- NOTE | 2018-10-27 11:12 | Infectious Disease Consult ---
Date of Encounter: 10/27/18 Time of Encounter: 11:45 Assessment and Plan (1) Sepsis Status: Acute Assessment and plan: Severe sepsis: The patient had 2 sepsis criteria plus acute kidney injury on admission. Likely secondary to decubitus ulcer infection vs. UTI vs. other. The cultures drawn sets are pending. Recommendations: Await blood cultures. Get wound cultures, aerobic and anaerobic. Check baseline CK level. Gen. surgery to evaluate the sacral ulcer. Aggressive offloading and wound care per nursing. Re-collect urine culture via straight cath. Get records from [place] re: the diagnosis and treatment plan for sacral OM. Continue Ertapenem 1 gram IV daily. Continue vancomycin IV. Pharmacy to dose. Goal trough approximately 15. Duration of treatment depends on the clinical picture. Monitor renal function for drug toxicity and dose adjust antibiotics. Qualifiers: Sepsis type: sepsis due to unspecified organism Qualified Code(s): A41.9 - Sepsis, unspecified organism (2) Decubitus ulcer, infected Status: Acute Assessment and plan: Location: Sacral wound. Causative organism: Unclear. Per the patient, she was diagnosed with osteomyelitis at [place]. According to the records, the patient was to have 4 weeks of IV antibiotics. Will ask nursing to get records from [place] including ID notes, discharge summary, imaging reports, and cultures. CT of the abdomen and pelvis showed cellulitis with gas and an abscess could not be excluded. ESR and CRP elevated. Baseline CK level pending. General surgery consulted. Currently on Vanc and Ertapenem. Qualifiers: Pressure injury stage: stage 4 Qualified Code(s): L89.94 - Pressure ulcer of unspecified site, stage 4; L08.9 - Local infection of the skin and subcutaneous tissue, unspecified (3) Cellulitis Status: Chronic Assessment and plan: Location: Sacrum. Likely secondary to sacral wound infection. Causative organism: Unclear. Currently on Iv Vanc and Ertapenem. Qualifiers: Site of cellulitis: extremity Site of cellulitis of extremity: lower extremity Laterality: unspecified laterality Qualified Code(s): L03.119 - Cellulitis of unspecified part of limb (4) Diabetes mellitus Status: Chronic Assessment and plan: Recommend strict glucose control. Qualifiers: Diabetes mellitus type: type 2 Diabetes mellitus intermediate insulin use: without intermediate use Diabetes mellitus complication status: with kidney complications Diabetes mellitus complication detail: with nephropathy Qualified Code(s): E11.21 - Type 2 diabetes mellitus with diabetic nephropathy (5) HLD (hyperlipidemia) Status: Chronic Qualifiers: Hyperlipidemia type: pure hypercholesterolemia Qualified Code(s): E78.00 - Pure hypercholesterolemia, unspecified; E78.0 - Pure hypercholesterolemia (6) History of allergy to multiple drugs Status: Chronic Assessment and plan: The patient has multiple allergies which compensates and limits our ability in selecting antibiotic therapy. 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 Unable to calculate a meld score since we do not have an INR. Recommend checking INR. (9) OLIVER (obstructive sleep apnea) Status: Chronic (10) PAD (peripheral artery disease) Status: Chronic (11) Pulmonary hypertension Status: Chronic (12) Acute kidney injury superimposed on chronic kidney disease Status: Resolved Assessment and plan: Likely secondary to sepsis and poor by mouth intake. Serum creatinine elevated at 1.76. Continue to trend. Avoid nephrotoxins and dose adjust antibiotics. (13) History of DVT of lower extremity Status: Resolved (14) Atrial fibrillation Status: Chronic Qualifiers: Atrial fibrillation type: chronic Qualified Code(s): I48.2 - Chronic atrial fibrillation (15) COPD (chronic obstructive pulmonary disease) Status: Chronic Qualifiers: COPD type: unspecified COPD Qualified Code(s): J44.9 - Chronic obstructive pulmonary disease, unspecified Infectious Disease HPI - Data of Consult Patient: known to practice within the last 3 years Consult date: 10/27/18 Requesting Physician: Dontrell Ricardo MD Primary Care Provider: Lang Jarvis DO - Consult Narrative Reason for consult: "Sepsis secondary to sacral ulcer" History of present illness: Ms. Feliciano is a 63 year old female with a past medical history of obesity, A. fib, CHF, COPD, CAD, diabetes, hyperlipidemia, chronic kidney disease, pulmonary hypertension, and chronic sacral ulcer. The patient was admitted to the hospital 10/27/18 for acute kidney injury, sacral wound, sepsis, and UTI. We are consulted for further workup and antibiotic recommendations for sacral wound infection. Briefly, the patient is a 63-year-old female with a past medical history as stated above. The patient is known to the ID service as we have been consulted on her case in the past. Apparently, the patient resides in a local extended care facility and began feeling ill and having a fever so she presented to the ER for evaluation. Upon arrival, the patient was febrile. She is otherwise hemodynamically stable. She had leukocytosis with normal differential. She had an acute kidney injury with serum creatinine 1.76. Lactic acid was normal. LFTs were mildly elevated with an AST of 149, AST of 32, alkaline phosphatase of 157. ESR was elevated at 61. CRP is pending. She had a chest x-ray that showed moderate pulmonary vascular congestion. Urinalysis appeared contaminated and was not sent for culture. Blood cultures were obtained 1 set in the emergency department and is pending. Flu antigen swab was negative. She started to appear on IV antibiotics and admitted to the hospital for further evaluation. Since admission, the patient has been afebrile hemodynamically stable. 2 additional sets of blood cultures have been obtained and are pending. She had a CT of the abdomen and pelvis that showed cellulitis with edema and gas pockets and subcutaneous tissues overlying the coccyx with a defect in the overlying skin representing an area of the ulcer. Developing abscess cannot be excluded. No drainable fluid collection. No CT evidence for osteomyelitis, but this is a concerning MRI would be more sensitive. There was also asymmetric skin thick ening and subcutaneous tissue infiltration likely representing cellulitis along the inferior aspect of the left buttock. CK level is pending. General surgery has been consulted. Currently, the patient is on IV ertapenem and vancomycin. We have been asked to evaluate and make further recommendations. During my exam today, the patient tells me that she has been in and out of multiple facilities including [facility] and most recently [place] for several different medical issues. This recently, she was [facility] for a GI bleed. She had a chronic sacral wound is evaluated and findings were concerning for osteomyelitis. She was placed on IV ertapenem to complete a four-week course according to the [facility] records. Records also indicate she was started on LEvaquin and fluconazole at the [facility] for presumed UTI. The patient tells me that she has felt generally unwell for the past several months, but she started having fevers and generalized fatigue and malaise on the day of admission. She denies any headache or neck pain. She denies any congestion, earache, or sore throat. She denies chest pain, shortness of breath, or cough. She reports some nausea, denies any vomiting. She reports chronic diarrhea secondary to lactulose. She denies any constipation. She states she has intermittent dysuria and urinary frequency that comes and goes. She denies abdominal pain. She denies any oral thrush. She does have a chronic sacral decubitus ulcer that has been there for about 4 months that is really not been getting any better. She reports some pain at the site of the ulceration. She also reports a scabbed lesion to the anterior abdominal wall secondary to a sticker placed during one of her hospitalizations. She denies any specific back or joint pain. She denies any rashes. The patient currently lives at a local [facility]. Prior to that, she was living at home with her in [place]. She does not work outside the home. She denies any tobacco, alcohol, or illicit drug use. She denies any chronic infectious diseases. She denies any recent travel outside the [facility]. CC: Dontrell Ricardo MD Past Med Surg Social Fam HX - Past Medical History Attestation: Yes The following information was validated with the patient. Source: patient, old records reviewed, nursing notes reviewed Medical history: atrial fibrillation, CHF, COPD, coronary artery disease, DVT, diabetes, GI bleed, hyperlipidemia, hypertension, myocardial infarction, renal disease, thyroid disease, other Additional medical history: hemrhoids,gout, fatty liver, decub to buttocks Psychiatric history: anxiety, depression - Past Surgical History Surgical History: angioplasty/stent, other Additional surgical history: 1 cardiac stents. right leg procedure for DVT - Social History Smoking Status: Former smoker Smokeless Tobacco Status: No Alcohol use: none Drug use: none Occupational status: disabled Activity Level: Bed bound Recent Out of Country Travel Within the Last 8 Weeks: No Exposure or Possible Exposure to Illness During Travel: No - Family History Brother Family Member Ethnicity: Non- Living Status: Hx Family Cancer: Yes (colon cancer) Father Adopted: No Family Member Ethnicity: Non- Living Status: Hx Family Cardiac Disorders: Yes (heart attack) Hx Family Respiratory Disorders: Yes (breathing issues) Hx Family Cancer: No Hx Family GI Disorders: No Hx Family Endocrine Disorder: No Hx Family Neuromuscular Disorders: No Hx Family Neurologic Disorders: No Hx Family HEENT Disorders: No Hx Family Autoimmune Disorders: No Mother Family Member Ethnicity: Non- Living Status: Still Living Hx Family Cardiac Disorders: Yes Hx Family Endocrine Disorder: Yes (DM) Hx Family Neurologic Disorders: Yes (Dementia) Son Family Member Ethnicity: Non- Living Status: Still Living Hx Family GI Disorders: Yes (high grade dysplasia polyps) Infectious Disease-CN:Meds RX: Acetaminophen [Extra Strength Non-Aspirin] 500 mg PO Q6H PRN 09/13/18 [History] RX: Albuterol Sulfate [Albuterol Inhaler] 2 puff IH Q6H PRN 09/13/18 [History] RX: Amiodarone [Cordarone] 200 mg PO DAILY 09/13/18 [History] RX: Aspirin Enteric Coated [Aspirin EC] 81 mg PO DAILY 09/13/18 [History] RX: Atorvastatin [Lipitor] 20 mg PO HS 09/13/18 [History] RX: Bisacodyl [Dulcolax] 10 mg RC DAILY PRN 09/13/18 [History] RX: Budesonide/Formoterol 160/4.5 [Symbicort 160/4.5] 2 puff IH BIDR 09/13/18 [History] RX: Cholecalciferol (D-3) [Vitamin D] 5,000 unit PO DAILY 09/13/18 [History] RX: Docusate [Colace] 100 mg PO BID PRN 09/13/18 [History] RX: Febuxostat [Uloric] 40 mg PO QPM 09/13/18 [History] RX: Ferrous Gluconate 324 mg PO DAILY 09/13/18 [History] RX: Furosemide [Lasix] 60 mg PO BID 09/13/18 [History] RX: Glucagon,Human Recombinant [Glucagon Emergency Kit] 1 mg IJ AD PRN 09/13/18 [History] RX: Lisinopril [Zestril] 40 mg PO DAILY 09/13/18 [History] RX: Metoprolol XL (24 HR) Succ [Toprol Xl] 25 mg PO QPM 09/13/18 [History] RX: Montelukast [Singulair] 10 mg PO HS 09/13/18 [History] RX: Multivitamin [One Daily Essential] 1 each PO DAILY 09/13/18 [History] RX: Omeprazole [PriLOSEC] 40 mg PO QPM 09/13/18 [History] RX: Pregabalin [Lyrica] 75 mg PO TID 09/13/18 [History] RX: Leptospermum Honey [Medihoney] 1 appl TP DAILY #30 tube 09/20/18 [Rx] RX: Lactulose [Enulose] 30 gm PO BID 09/24/18 [History] Ertapenem [INVanz] 1,000 mg IVPB DAILY 10/27/18 [History] Insulin ASPART [NovoLOG] 0 unit SQ ACHS 10/27/18 [History] Insulin DETEMIR [Levemir] 13 unit SQ BID 10/27/18 [History] Levothyroxine [Synthroid] 75 mcg PO 0630 10/27/18 [History] Loratadine [Allergy Relief] 10 mg PO DAILY 10/27/18 [History] Urea/Alpha Hydroxy Acids [Atrac-Tain Cream] 142 gm TP BID 10/27/18 [History] Allergy/AdvReac Type Severity Reaction Status Date / Time ciprofloxacin [From Cipro] Allergy Severe Anaphylaxis Verified 07/11/18 09:28 clarithromycin [From Biaxin] Allergy Severe Hives Verified 07/11/18 09:28 clonidine Allergy Severe Anaphylaxis Verified 07/11/18 09:28 levofloxacin [From Levaquin] Allergy Severe Anaphylaxis Verified 07/11/18 09:28 Warfarin Allergy Severe Difficulty Verified 07/11/18 09:28 Breathing Cefaclor Allergy Anaphylaxis Verified 07/11/18 09:28 codeine Allergy Rash Verified 07/11/18 09:28 Hydralazine Allergy Hives Verified 07/11/18 09:28 sulfamethoxazole Allergy Hives Verified 07/11/18 09:28 [From Bactrim] trimethoprim [From Bactrim] Allergy Hives Verified 07/11/18 09:28 tiotropium AdvReac Severe Blurry Verified 07/11/18 09:28 [From Spiriva with Vision HandiHaler] acarbose AdvReac Blurry Verified 07/11/18 09:28 Vision atorvastatin [From Lipitor] AdvReac Muscle Pain Verified 07/11/18 09:28 fenofibrate [From Tricor] AdvReac Muscle Pain Verified 11/05/18 09:28 rivaroxaban [From Xarelto] AdvReac Gastrointestinal Verified 07/11/18 09:28 Upset All systems: reviewed and no additional remarkable complaints except as stated Exam - Constitutional Vitals: Temp Pulse Resp BP Pulse Ox 98.4 F 58 19 96/53 96 10/27/18 07:35 10/27/18 07:35 10/27/18 07:35 10/27/18 07:35 10/27/18 07:35 General appearance: cooperative, morbidly obese, no acute distress - Head Head exam: Present: atraumatic, normal inspection, normocephalic - Eye Eye exam: Present: EOMI, normal appearance, PERRL Pupils: Present: normal accommodation - ENT ENT exam: Present: mucous membranes moist - Neck Neck exam: Present: normal inspection. Absent: meningismus - Respiratory Respiratory exam: Present: CTAB. Absent: rales, respiratory distress, rhonchi, wheezes - Cardiovascular Cardiovascular exam: Present: RRR, +S1, +S2 - GI/Abdominal GI/Abdominal exam: Present: distended (obese), normal bowel sounds, soft. Absent: tenderness Additional comments: Scabbed lesion noted to the periumbilical area without surrounding erythema, warmth, tenderness, or drainage. - Extremities Exam Extremities exam: Present: normal inspection. Absent: joint swelling, pedal edema, tenderness - Neurological Exam Neurological exam: Present: alert, oriented X3, no focal deficits (MACIEL x 4). Absent: strengths equal and symetr throughout (Weakness noted to the BLE) - Psychiatric Psychiatric exam: Present: normal affect, normal mood - Skin Skin exam: Present: dry, intact, normal color, warm - Expanded Skin Exam 1 - Sacral decubitus ulcer stage IV with beefy red wound bed with small amount of light yellow purulent drainage. No fluctuance or tenderness noted. No real erythema noted on exam. No foul odor noted. Small amount of stool noted inside the wound. Infectious Disease CN: Results - Labs CBC & Chem 7: 10/28/18 03:30 10/28/18 03:30 Cultures: Cultures 10/27/18 08:22 Blood Culture - Preliminary Peripheral Venipuncture Culture is incubating and being continuously monitored for growth. Final report to follow. 10/27/18 08:15 Blood Culture - Preliminary Peripheral Venipuncture Culture is incubating and being continuously monitored for growth. Final report to follow. 10/27/18 03:35 Blood Culture - Preliminary Peripheral Venipuncture Culture is incubating and being continuously monitored for growth. Final report to follow. 10/27/18 03:52 Influenza Types A,B Antigen - Final Nasopharyngeal Serology: Serology 10/27/18 Range/Units 03:48 Urine Color Dark Yellow (Yellow) Urine Clarity Turbid A (Clear) Urine pH 5.0 (5.0-8.0) pH Units Ur Specific [place] 1.024 (1.010-1.025) Urine Protein Trace (Neg-Trace) mg/dL Urine Glucose (UA) Normal (Normal) mg/dL Urine Ketones Negative (Negative) mg/dL Urine Blood Moderate H (Negative) Urine Nitrite Negative (Negative) Urine Bilirubin Small H (Negative) Urine Urobilinogen Normal (Normal) mg/dL Ur Leukocyte Esterase Large H (Negative) Urine Microscopic RBC 0-3 (0-3) per hpf Urine Microscopic WBC TNTC H (0-3) per hpf Ur Squamous Epith Cells Many H (None-Few) per lpf Urine Bacteria None Seen (None-Few) per hpf Hyaline Casts None Seen (None-Few) per lpf Urine Yeast Many H (None Seen) per hpf Ur Culture Indicated? NO. A (NO) Consult Discharge Plan - Plan Referrals: Lang Jarvis DO [Primary Care Provider] - - Attending Attestation I have personally performed a face to face evaluation on this patient. I have reviewed and agree with the care plan. History and Exam by me shows: This is an addendum to original report dictated by Yuko Johnson CNP. Please refer to Yuko's note for full details. Patient is a 63-year-old woman known to my service who have seen previously on previous admission 2018 was apparently recently admitted to a [facility] with a decubitus ulcer. Bone biopsy revealed ESBL organisms and anaerobes. Patient was discharged on ertapenem to finish a 6 weeks course. Patient came in with sepsis like picture we were asked to evaluate the patient's make further recommendations. Currently patient appears comfortable is at bedside. Does not appear toxic awake alert oriented. Review of system as per above Assessment and plan: 1.sepsis 2.decubitus ulcer with osteomyelitis of the sacral wound Diabetes mellitus type 2 Hyperlipidemia History of multiple drug allergies Recommendations Await blood cultures. Get wound cultures, aerobic and anaerobic. Check baseline CK level. Gen. surgery to evaluate the sacral ulcer. Aggressive offloading and wound care per nursing. Re-collect urine culture via straight cath. Get records from [place] re: the diagnosis and treatment plan for sacral OM. Continue Ertapenem 1 gram IV daily. Continue vancomycin IV. Pharmacy to dose. Goal trough approximately 15. Duration of treatment depends on the clinical picture. Monitor renal function for drug toxicity and dose adjust antibiotics.
[2018-10-27] MEDS: Budesonide/Formoterol 160/4.5 1 PUFF INH IH SCH ×2 (11:21→22:12)
--- NOTE | 2018-10-27 11:43 | Palliative - Consult Note ---
Date of Encounter: 10/27/18 Time of Encounter: 10:00 - Assessment and Plan (1) Goals of care, counseling/discussion Current Visit: Yes Status: Acute Assessment and plan: Conducted bedside meeting with patient. Patient currently resides at [facility]. Desires a different facility if possible at [facility]. DNR form reviewed and patient confirms desires for DNRCC - A. DNRCC - A status correct in EMR. Called patients father, and son Daryl # [phone] to let them know patient was in hospital. Son Daryl states that patient has been in and out of [facility] and [facility] in past month and hasn't really had an opportunity to participate in any rehab in [facility]. Reinforced that patient has sacral decub and overall guarded prognosis given co-morbid conditions. Explained that at last admit the PC was consulted and goals at that time were for [facility] skilled rehab. Son desires to have patient DC to [facility] closer to him in [place] so he can be more available for visitation. They verbalized desires for continued treatment of illnesses and desires for Pt & OT. Goals at present is to [facility] source of infection and treat as indicated. (2) Sacral decubitus ulcer, stage IV Current Visit: Yes Status: Chronic Assessment and plan: Infectious disease consulted Patient on Antibiotics = + leukocytosis Orders for wound care noted Position for pressure relief (3) Sepsis Current Visit: Yes Status: Acute Assessment and plan: Management per medical team Qualifiers: Sepsis type: sepsis due to unspecified organism Qualified Code(s): A41.9 - Sepsis, unspecified organism Palliative-CN HPI - Data of Consult Patient: known to practice within the last 3 years Consult date: 10/27/18 Requesting Physician: Jairon Flores Primary Care Provider: Lang Jarvis, DO - Consult Narrative Palliative Care/Comfort Measures: Palliative care Reason for consult: Goals of Care History of present illness: Ms. Feliciano is a 63 year old female admitted from [facility] with c/o fever and malaise. Past medical history of end stage cirrhosis, diastolic CHF, COPD with chronic supplemental oxygen use, coronary artery disease, DVT, diabetes, GI bleed, hyperlipidemia, hypertension, CAD, CKD stage III, hypothyroidism and diabetes mellitus type II. Patient recently discharged from [facility] after a 2-week stay. Patient with sacral wound and bilateral heel breakdown as well. Patient has been in and out of [facility] and [facility] in past weeks according to her son Daryl. Patient now admitted with sepsis and Infectious disease has been consulted to evaluate. This palliative care consult is for goals of care discussion. CC: Dontrell Ricardo MD - Time Spent with Patient Time: Total time spent is greater than 50% in coordination of care (as documented) at patient's floor/unit and/or counseling patient: Time with patient: 30 minutes Past Med Surg Social Fam HX - Past Medical History Source: patient, old records reviewed, obtained from family, nursing notes reviewed Medical history: atrial fibrillation, CHF, COPD, coronary artery disease, DVT, diabetes, GI bleed, hyperlipidemia, hypertension, myocardial infarction, renal disease, thyroid disease, other Additional medical history: hemrhoids,gout, fatty liver, decub to buttocks Psychiatric history: anxiety, depression - Past Surgical History Surgical History: angioplasty/stent, other Additional surgical history: 1 cardiac stents. right leg procedure for DVT - Social History Smoking Status: Former smoker Smokeless Tobacco Status: No Alcohol use: none Drug use: none Occupational status: disabled Current living situation: [facility] Activity Level: Uses cane/walker, Wheelchair bound Recent Out of Country Travel Within the Last 8 Weeks: No Exposure or Possible Exposure to Illness During Travel: No - Family History Brother Family Member Ethnicity: Non- Living Status: Hx Family Cancer: Yes (colon cancer) Father Adopted: No Family Member Ethnicity: Non- Living Status: Hx Family Cardiac Disorders: Yes (heart attack) Hx Family Respiratory Disorders: Yes (breathing issues) Hx Family Cancer: No Hx Family GI Disorders: No Hx Family Endocrine Disorder: No Hx Family Neuromuscular Disorders: No Hx Family Neurologic Disorders: No Hx Family HEENT Disorders: No Hx Family Autoimmune Disorders: No Mother Family Member Ethnicity: Non- Living Status: Still Living Hx Family Cardiac Disorders: Yes Hx Family Endocrine Disorder: Yes (DM) Hx Family Neurologic Disorders: Yes (Dementia) Son Family Member Ethnicity: Non- Living Status: Still Living Hx Family GI Disorders: Yes (high grade dysplasia polyps) Medications and Allergies RX: Acetaminophen [Extra Strength Non-Aspirin] 500 mg PO Q6H PRN 09/13/18 [History] RX: Albuterol Sulfate [Albuterol Inhaler] 2 puff IH Q6H PRN 09/13/18 [History] RX: Amiodarone [Cordarone] 200 mg PO DAILY 09/13/18 [History] RX: Aspirin Enteric Coated [Aspirin EC] 81 mg PO DAILY 09/13/18 [History] RX: Atorvastatin [Lipitor] 20 mg PO HS 09/13/18 [History] RX: Bisacodyl [Dulcolax] 10 mg RC DAILY PRN 09/13/18 [History] RX: Budesonide/Formoterol 160/4.5 [Symbicort 160/4.5] 2 puff IH BIDR 09/13/18 [History] RX: Cholecalciferol (D-3) [Vitamin D] 5,000 unit PO DAILY 09/13/18 [History] RX: Docusate [Colace] 100 mg PO BID PRN 09/13/18 [History] RX: Febuxostat [Uloric] 40 mg PO QPM 09/13/18 [History] RX: Ferrous Gluconate 324 mg PO DAILY 09/13/18 [History] RX: Furosemide [Lasix] 60 mg PO BID 09/13/18 [History] RX: Glucagon,Human Recombinant [Glucagon Emergency Kit] 1 mg IJ AD PRN 09/13/18 [History] RX: Lisinopril [Zestril] 40 mg PO DAILY 09/13/18 [History] RX: Metoprolol XL (24 HR) Succ [Toprol Xl] 25 mg PO QPM 09/13/18 [History] RX: Montelukast [Singulair] 10 mg PO HS 09/13/18 [History] RX: Multivitamin [One Daily Essential] 1 each PO DAILY 09/13/18 [History] RX: Omeprazole [PriLOSEC] 40 mg PO QPM 09/13/18 [History] RX: Pregabalin [Lyrica] 75 mg PO TID 09/13/18 [History] RX: Leptospermum Honey [Medihoney] 1 appl TP DAILY #30 tube 09/20/18 [Rx] RX: Lactulose [Enulose] 30 gm PO BID 09/24/18 [History] Ertapenem [INVanz] 1,000 mg IVPB DAILY 10/27/18 [History] Insulin ASPART [NovoLOG] 0 unit SQ ACHS 10/27/18 [History] Insulin DETEMIR [Levemir] 13 unit SQ BID 10/27/18 [History] Levothyroxine [Synthroid] 75 mcg PO 0630 10/27/18 [History] Loratadine [Allergy Relief] 10 mg PO DAILY 10/27/18 [History] Urea/Alpha Hydroxy Acids [Atrac-Tain Cream] 142 gm TP BID 10/27/18 [History] Allergy/AdvReac Type Severity Reaction Status Date / Time ciprofloxacin [From Cipro] Allergy Severe Anaphylaxis Verified 07/11/18 09:28 clarithromycin [From Biaxin] Allergy Severe Hives Verified 07/11/18 09:28 clonidine Allergy Severe Anaphylaxis Verified 07/11/18 09:28 levofloxacin [From Levaquin] Allergy Severe Anaphylaxis Verified 07/11/18 09:28 Warfarin Allergy Severe Difficulty Verified 07/11/18 09:28 Breathing Cefaclor Allergy Anaphylaxis Verified 07/11/18 09:28 codeine Allergy Rash Verified 07/11/18 09:28 Hydralazine Allergy Hives Verified 07/11/18 09:28 sulfamethoxazole Allergy Hives Verified 07/11/18 09:28 [From Bactrim] trimethoprim [From Bactrim] Allergy Hives Verified 07/11/18 09:28 tiotropium AdvReac Severe Blurry Verified 07/11/18 09:28 [From Spiriva with Vision HandiHaler] acarbose AdvReac Blurry Verified 07/11/18 09:28 Vision atorvastatin [From Lipitor] AdvReac Muscle Pain Verified 07/11/18 09:28 fenofibrate [From Tricor] AdvReac Muscle Pain Verified 07/11/18 09:28 rivaroxaban [From Xarelto] AdvReac Gastrointestinal Verified 07/11/18 09:28 Upset All systems: reviewed and no additional remarkable complaints except as stated (c/o sacral pain, weakness) - Constitutional Constitutional ROS PAL: decreased appetite, fatigue, malaise - Genitourinary Palliative ROS female: dysuria, urinary urgency - Musculoskeletal Musculoskeletal ROS IM: muscle weakness, myalgias - Integumentary ROS Integumentary: wounds (sacral, bilateral heels) - Neurological Neurological ROS: weakness - Psychiatric Psychiatric general PM: anxiety, depression Palliative Care-Exam - Constitutional Vitals: Temp Pulse Resp BP Pulse Ox 98.4 F 58 18 96/53 96 10/27/18 07:35 10/27/18 07:35 10/27/18 11:21 10/27/18 07:35 10/27/18 11:21 General appearance: Present: cooperative, no acute distress - Head Head Exam: Present: atraumatic, normal inspection - Eye Eye exam: Present: PERRL Pupils: Present: PERRL - ENT ENT exam: Present: mucous membranes moist - Expanded ENT Exam Mouth Exam: Present: moist - Neck Neck exam: Present: full ROM - Expanded Respiratory Exam Location: decreased breath sounds: Left, Right, Lower - Cardiovascular Cardiovascular exam: Present: RRR, +S1, +S2 - Expanded Cardiovascular Exam Peripheral pulses: 1+: Femoral (L) PM, Femoral (R) PM, Posterior Tibialis (L), Posterior Tibialis (R), 2+: Carotid (L) PM, Carotid (R) PM, Radial (L), Radial (R), Dorsalis Pedis (L) PM, Dorsalis Pedis (R) PM - GI/Abdominal Exam GI/Abdominal exam: Present: soft - Expanded Upper Extremities Exam Upper Arm exam: Present: full ROM Forearm wrist exam: Present: full ROM - Neurological Exam Neurological exam: Present: alert, oriented X3 - Expanded Neurological Exam Coma Scale Eye Opening: Spontaneous Coma Scale Motor Response: Obeys Commands Coma Scale Verbal Response: Oriented Coma Scale Total: 15 - Psychiatric Psychiatric exam: Present: normal affect Internal Medicine - CN: Reslt - Labs CBC & Chem 7: 10/27/18 03:35 10/27/18 03:35 Labs: Short CBC 10/27/18 Range/Units 03:35 WBC 13.2 H (4.3-11.1) K/mcL Hgb 8.2 L (11.5-15.4) g/dL Hct 25.9 L (35.3-44.9) % Plt Count 228 (140-400) K/mcL Neutrophils # 9.0 H (1.6-8.9) K/mcL BMP 10/27/18 03:35 Sodium 135 L Potassium 4.2 Chloride 103 Carbon Dioxide 22 L BUN 53 H Creatinine 1.76 H Glucose 128 H Calcium 7.9 L Cardiac Enzymes 10/27/18 10/27/18 Range/Units 03:35 08:22 Troponin I 0.04 H* 0.03 (< 0.04) ng/mL Liver Function 10/27/18 Range/Units 03:35 Total Bilirubin 0.8 (0.3-1.0) mg/dL Direct Bilirubin 0.3 H (0.0-0.2) mg/dL AST 149 H (13-39) Units/L ALT 32 (7-52) Units/L Alkaline Phosphatase 157 H (34-104) Units/L Albumin 1.9 L (3.5-5.7) g/dL Urine 10/27/18 Range/Units 03:48 Urine Color Dark Yellow (Yellow) Urine Clarity Turbid A (Clear) Urine pH 5.0 (5.0-8.0) pH Units Ur Specific [place] 1.024 (1.010-1.025) Urine Protein Trace (Neg-Trace) mg/dL Urine Glucose (UA) Normal (Normal) mg/dL - Impressions Impressions Chest X-Ray 10/27/18 03:26 IMPRESSION: Stable examination with moderate central pulmonary vascular congestion. Left lung discoid atelectasis. D/ / Frandy Malone / Frandy Malone Interpreting Provider: Frandy Malone Abdomen/Pelvis CT 10/27/18 07:53 IMPRESSION: 1. Cellulitis with edema and gas pockets in subcutaneous tissues overlying the coccyx. Defect in overlying skin represents area of ulcer. Developing abscess not excluded. No drainable fluid collection. No CT evidence for osteomyelitis but if this of concern MRI would be more sensitive. 2. Along the inferior aspect of the left buttock there is asymmetric skin thickening and subcutaneous tissue infiltration which could represent a focus of cellulitis. Please correlate with physical exam. D/ / Darian Howard MD / Darian Howard MD Interpreting Provider: Darian Howard MD Consult Discharge Plan - Plan Referrals: Lang Jarvis DO [Primary Care Provider] - Palliative Quality Palliative Quality: Screen for Code Status: Yes, Screen for Goals of Care: Yes, Screen for Pain: Yes, If Pain Regimen Started, Initiate Bowel Regimen: Yes, Screen for Nausea/Vomitting: Yes Code Status: 02/21/19 08:39 Resuscitation Status: Active [RES] Routine Comment: Resuscitation Status: DNR-Comfort Care-Arrest
[2018-10-27] MEDS ORDERED: Dextrose Gel 15 GM/37.5 ML TUBE PO PRN ×2 (13:05)
[2018-10-27] MEDS ORDERED: *HR* Dextrose 50 % in Water (Syg) 50 ML SYRINGE IVP PRN (13:05)
[2018-10-27] MEDS ORDERED: Dextrose 4 GM Chewable Tablets PO PRN ×2 (13:05)
[2018-10-27] MEDS ORDERED: D5% in Water 1,000 ML IVC PRN (13:05)
[2018-10-27] MEDS: Insulin LISPRO 300 UNITS/3 ML VIAL SQ SCH ×2 (15:20→18:21)
--- NOTE | 2018-10-27 16:33 | General Surgery Consult Note ---
<Brenda Boyer - Last Filed: 10/27/18 16:29> Date of Encounter: 10/27/18 Time of Encounter: 16:15 Assessment and Plan (1) Sacral decubitus ulcer, stage IV Current Visit: Yes Status: Chronic Apply wound vac, black sponge (medium) at 125mmH continuous suction; change every Wednesday, , Wednesday Turn every 2 hours Specialty bed ordered per Mignon Sage No acute surgical intervention indicated at this time Continue with supportive care History of Present Illness Consult date: 10/27/18 Reason for consult: other (Sacral decubitus ulcer) Requesting physician: Caren Flores History of present illness: Ms. Feliciano is a 63 year old female with multiple comorbidities including obesity, A. fib, CHF, COPD, CAD, diabetes, hyperlipidemia, chronic kidney disease, pulmonary hypertension, and chronic sacral ulcer. The patient was admitted to the hospital 10/27/18 for acute kidney injury, sacral wound, sepsis, and UTI. We have been asked to evaluate the patient for a chronic sacral ulcer. The patient reports that she has had the ulcer for the past 3-4 months. She was recently admitted to [facility] for approximately 2 week. She has had admissions to [facility] as well in the recent past. She states that she resides in [facility] at this time and they have been completing wound care daily. She denies being followed in a wound care facility. She in unsure as to what kind of dressings have been used for the wound. Past Med Surg Social Fam HX - Past Medical History Source: old records reviewed Medical history: atrial fibrillation, CHF, COPD, coronary artery disease, DVT, diabetes, GI bleed, hyperlipidemia, hypertension, myocardial infarction, renal disease, thyroid disease, other Additional medical history: hemrhoids,gout, fatty liver, decub to buttocks Psychiatric history: anxiety, depression - Past Surgical History Surgical History: angioplasty/stent, other Additional surgical history: 1 cardiac stents. right leg procedure for DVT - Social History Smoking Status: Former smoker Smokeless Tobacco Status: No Alcohol use: none Drug use: none - Family History Mother Family Member Ethnicity: Non- Living Status: Still Living Hx Family Cardiac Disorders: Yes Hx Family Endocrine Disorder: Yes (DM) Hx Family Neurologic Disorders: Yes (Dementia) Brother Family Member Ethnicity: Non- Living Status: Hx Family Cancer: Yes (colon cancer) Son Family Member Ethnicity: Non- Living Status: Still Living Hx Family GI Disorders: Yes (high grade dysplasia polyps) Father Adopted: No Family Member Ethnicity: Non- Living Status: Hx Family Cardiac Disorders: Yes (heart attack) Hx Family Respiratory Disorders: Yes (breathing issues) Hx Family Cancer: No Hx Family GI Disorders: No Hx Family Endocrine Disorder: No Hx Family Neuromuscular Disorders: No Hx Family Neurologic Disorders: No Hx Family HEENT Disorders: No Hx Family Autoimmune Disorders: No Medications and Allergies Acetaminophen [Extra Strength Non-Aspirin] 500 mg PO Q6H PRN 09/13/18 [History] Albuterol Sulfate [Albuterol Inhaler] 2 puff IH Q6H PRN 09/13/18 [History] Amiodarone [Cordarone] 200 mg PO DAILY 09/13/18 [History] Aspirin Enteric Coated [Aspirin EC] 81 mg PO DAILY 09/13/18 [History] Atorvastatin [Lipitor] 20 mg PO HS 09/13/18 [History] Bisacodyl [Dulcolax] 10 mg RC DAILY PRN 09/13/18 [History] Budesonide/Formoterol 160/4.5 [Symbicort 160/4.5] 2 puff IH BIDR 09/13/18 [History] Cholecalciferol (D-3) [Vitamin D] 5,000 unit PO DAILY 09/13/18 [History] Docusate [Colace] 100 mg PO BID PRN 09/13/18 [History] Febuxostat [Uloric] 40 mg PO QPM 09/13/18 [History] Ferrous Gluconate 324 mg PO DAILY 09/13/18 [History] Furosemide [Lasix] 60 mg PO BID 09/13/18 [History] Glucagon,Human Recombinant [Glucagon Emergency Kit] 1 mg IJ AD PRN 09/13/18 [History] Lisinopril [Zestril] 40 mg PO DAILY 09/13/18 [History] Metoprolol XL (24 HR) Succ [Toprol Xl] 25 mg PO QPM 09/13/18 [History] Montelukast [Singulair] 10 mg PO HS 09/13/18 [History] Multivitamin [One Daily Essential] 1 each PO DAILY 09/13/18 [History] Omeprazole [PriLOSEC] 40 mg PO QPM 09/13/18 [History] Pregabalin [Lyrica] 75 mg PO TID 09/13/18 [History] Leptospermum Honey [Medihoney] 1 appl TP DAILY #30 tube 09/20/18 [Rx] Lactulose [Enulose] 30 gm PO BID 09/24/18 [History] Ertapenem [INVanz] 1,000 mg IVPB DAILY 10/27/18 [History] Insulin ASPART [NovoLOG] 0 unit SQ ACHS 10/27/18 [History] Insulin DETEMIR [Levemir] 13 unit SQ BID 10/27/18 [History] Levothyroxine [Synthroid] 75 mcg PO 0630 10/27/18 [History] Loratadine [Allergy Relief] 10 mg PO DAILY 10/27/18 [History] Urea/Alpha Hydroxy Acids [Atrac-Tain Cream] 142 gm TP BID 10/27/18 [History] Allergy/AdvReac Type Severity Reaction Status Date / Time ciprofloxacin [From Cipro] Allergy Severe Anaphylaxis Verified 07/11/18 09:28 clarithromycin [From Biaxin] Allergy Severe Hives Verified 07/11/18 09:28 clonidine Allergy Severe Anaphylaxis Verified 07/11/18 09:28 levofloxacin [From Levaquin] Allergy Severe Anaphylaxis Verified 07/11/18 09:28 Warfarin Allergy Severe Difficulty Verified 07/11/18 09:28 Breathing Cefaclor Allergy Anaphylaxis Verified 07/11/18 09:28 codeine Allergy Rash Verified 07/11/18 09:28 Hydralazine Allergy Hives Verified 07/11/18 09:28 sulfamethoxazole Allergy Hives Verified 07/11/18 09:28 [From Bactrim] trimethoprim [From Bactrim] Allergy Hives Verified 07/11/18 09:28 tiotropium AdvReac Severe Blurry Verified 07/11/18 09:28 [From Spiriva with Vision HandiHaler] acarbose AdvReac Blurry Verified 07/11/18 09:28 Vision atorvastatin [From Lipitor] AdvReac Muscle Pain Verified 07/11/18 09:28 fenofibrate [From Tricor] AdvReac Muscle Pain Verified 07/11/18 09:28 rivaroxaban [From Xarelto] AdvReac Gastrointestinal Verified 07/11/18 09:28 Upset Review of Systems All systems PM: reviewed and no additional remarkable complaints except as stated (in the HPI and limited as the patient is a poor historian) All systems PM: The remainder of the systems were reviewed and are negative General Surgery Exam Initial Vital Signs Temp Pulse Resp BP Pulse Ox 101.1 F H 75 19 111/39 97 10/27/18 03:27 10/27/18 03:27 10/27/18 03:27 10/27/18 03:27 10/27/18 03:27 - General physical appearance well nourished, no distress, chronically ill - Eyes normal ocular movement - ENT normal mucosa, atraumatic, normocephalic - Respiratory normal respiratory effort, clear to auscultation - Cardiovascular Cardiovascular exam: Present: irregular rhythm - Abdomen Abdomen general surgery: Present: bowel sounds present, soft, non tender - Integumentary Integumentary general surgery: Present: other (Sacral wound measures 4 X 2 X 6.5cm. 90% granulation tissue noted. No bone exposure appreciated on exam. Small amount of cloudy, serous drainage noted without odor. No surrounding erythema or induration appreciated. No tenderness noted. No undrained fluid collection appreciated. No tunnelling or undermining appreciated.) Exam Initial Vital Signs Temp Pulse Resp BP Pulse Ox 101.1 F H 75 19 111/39 97 10/27/18 03:27 10/27/18 03:27 10/27/18 03:27 10/27/18 03:27 10/27/18 03:27 Results - Labs 10/27/18 03:35 10/27/18 03:35 Abnormal lab results WBC 13.2 K/mcL (4.3-11.1) H 10/27/18 03:35 RBC 2.98 M/mcL (3.82-4.97) L 10/27/18 03:35 Hgb 8.2 g/dL (11.5-15.4) L 10/27/18 03:35 Hct 25.9 % (35.3-44.9) L 10/27/18 03:35 MCH 27.5 pg (28.0-33.3) L 10/27/18 03:35 RDW 17.5 % (11.5-14.5) H 10/27/18 03:35 Neutrophils # 9.0 K/mcL (1.6-8.9) H 10/27/18 03:35 ESR 61 mm/hr (0-15) H 10/27/18 08:22 APTT 36.9 Seconds (26.0-36.0) H 10/27/18 03:35 Sodium 135 mEq/L (136-145) L 10/27/18 03:35 Carbon Dioxide 22 mEq/L (23-29) L 10/27/18 03:35 BUN 53 mg/dL (8-23) H 10/27/18 03:35 Creatinine 1.76 mg/dL (0.60-1.20) H 10/27/18 03:35 Est GFR ( Amer) 35 (> 60) L 10/27/18 03:35 Est GFR (Non-Af Amer) 29 (> 60) L 10/27/18 03:35 BUN/Creatinine Ratio 30 (6-26) H 10/27/18 03:35 Glucose 128 mg/dL (70-105) H 10/27/18 03:35 Calcium 7.9 mg/dL (8.6-10.3) L 10/27/18 03:35 Magnesium 1.5 mg/dL (1.6-2.6) L 10/27/18 03:35 Direct Bilirubin 0.3 mg/dL (0.0-0.2) H 10/27/18 03:35 AST 149 Units/L (13-39) H 10/27/18 03:35 Alkaline Phosphatase 157 Units/L (34-104) H 10/27/18 03:35 Serum Total Protein 5.3 g/dL (6.4-8.9) L 10/27/18 03:35 Albumin 1.9 g/dL (3.5-5.7) L 10/27/18 03:35 Albumin/Globulin Ratio 0.6 (1.1-2.2) L 10/27/18 03:35 Urine Clarity Turbid (Clear) A 10/27/18 03:48 Urine Blood Moderate (Negative) H 10/27/18 03:48 Urine Bilirubin Small (Negative) H 10/27/18 03:48 Ur Leukocyte Esterase Large (Negative) H 10/27/18 03:48 Urine Microscopic WBC TNTC per hpf (0-3) H 10/27/18 03:48 Ur Squamous Epith Cells Many per lpf (None-Few) H 10/27/18 03:48 Urine Yeast Many per hpf (None Seen) H 10/27/18 03:48 Ur Culture Indicated? NO. (NO) A 10/27/18 03:48 Diabetes panel 10/27/18 Range/Units 03:35 Sodium 135 L (136-145) mEq/L Potassium 4.2 (3.5-5.1) mEq/L Chloride 103 (98-107) mEq/L Carbon Dioxide 22 L (23-29) mEq/L BUN 53 H (8-23) mg/dL Creatinine 1.76 H (0.60-1.20) mg/dL Glucose 128 H (70-105) mg/dL Calcium 7.9 L (8.6-10.3) mg/dL AST 149 H (13-39) Units/L ALT 32 (7-52) Units/L Alkaline Phosphatase 157 H (34-104) Units/L Albumin 1.9 L (3.5-5.7) g/dL Calcium panel 10/27/18 Range/Units 03:35 Calcium 7.9 L (8.6-10.3) mg/dL Albumin 1.9 L (3.5-5.7) g/dL Pituitary panel 10/27/18 Range/Units 03:35 Sodium 135 L (136-145) mEq/L Potassium 4.2 (3.5-5.1) mEq/L Chloride 103 (98-107) mEq/L Carbon Dioxide 22 L (23-29) mEq/L BUN 53 H (8-23) mg/dL Creatinine 1.76 H (0.60-1.20) mg/dL Glucose 128 H (70-105) mg/dL Calcium 7.9 L (8.6-10.3) mg/dL Adrenal panel 10/27/18 Range/Units 03:35 Sodium 135 L (136-145) mEq/L Potassium 4.2 (3.5-5.1) mEq/L Chloride 103 (98-107) mEq/L Carbon Dioxide 22 L (23-29) mEq/L BUN 53 H (8-23) mg/dL Creatinine 1.76 H (0.60-1.20) mg/dL Glucose 128 H (70-105) mg/dL Calcium 7.9 L (8.6-10.3) mg/dL Total Bilirubin 0.8 (0.3-1.0) mg/dL AST 149 H (13-39) Units/L ALT 32 (7-52) Units/L Alkaline Phosphatase 157 H (34-104) Units/L Albumin 1.9 L (3.5-5.7) g/dL All other labs normal. - Imaging CT scan - abdomen: report reviewed CT scan - pelvis: report reviewed Additional studies: Chest X-Ray 10/27/18 03:26 IMPRESSION: Stable examination with moderate central pulmonary vascular congestion. Left lung discoid atelectasis. D/ / Frandy Malone / Frandy Malone Interpreting Provider: Frandy Malone Abdomen/Pelvis CT 10/27/18 07:53 IMPRESSION: 1. Cellulitis with edema and gas pockets in subcutaneous tissues overlying the coccyx. Defect in overlying skin represents area of ulcer. Developing abscess not excluded. No drainable fluid collection. No CT evidence for osteomyelitis but if this of concern MRI would be more sensitive. 2. Along the inferior aspect of the left buttock there is asymmetric skin thickening and subcutaneous tissue infiltration which could represent a focus of cellulitis. Please correlate with physical exam. D/ / Darian Howard MD / Darian Howard MD Interpreting Provider: Darian Howard MD Consult Discharge Plan - Plan Referrals: Lang Jarvis DO [Primary Care Provider] - - Attending Attestation For this encounter, I have reviewed the TOOL CHECKER or PA documentation, treatment plan, and medical decision making; and I have had face to face time with this patient. <Perico Juarez - Last Filed: 10/28/18 16:56> Date of Encounter: 10/27/18 Assessment and Plan (1) Sacral decubitus ulcer, stage IV Current Visit: Yes Status: Chronic Review of Systems All systems PM: The remainder of the systems were reviewed and are negative General Surgery Exam Initial Vital Signs Temp Pulse Resp BP Pulse Ox 101.1 F H 75 19 111/39 97 10/27/18 03:27 10/27/18 03:27 10/27/18 03:27 10/27/18 03:27 10/27/18 03:27 Exam Initial Vital Signs Temp Pulse Resp BP Pulse Ox 101.1 F H 75 19 111/39 97 10/27/18 03:27 10/27/18 03:27 10/27/18 03:27 10/27/18 03:27 10/27/18 03:27 Results - Labs 10/28/18 03:30 10/28/18 03:30 Abnormal lab results WBC 13.2 K/mcL (4.3-11.1) H 10/27/18 03:35 RBC 2.98 M/mcL (3.82-4.97) L 10/27/18 03:35 Hgb 8.2 g/dL (11.5-15.4) L 10/27/18 03:35 Hct 25.9 % (35.3-44.9) L 10/27/18 03:35 MCH 27.5 pg (28.0-33.3) L 10/27/18 03:35 RDW 17.5 % (11.5-14.5) H 10/27/18 03:35 Neutrophils # 9.0 K/mcL (1.6-8.9) H 10/27/18 03:35 ESR 61 mm/hr (0-15) H 10/27/18 08:22 APTT 36.9 Seconds (26.0-36.0) H 10/27/18 03:35 Sodium 135 mEq/L (136-145) L 10/27/18 03:35 Carbon Dioxide 22 mEq/L (23-29) L 10/27/18 03:35 BUN 53 mg/dL (8-23) H 10/27/18 03:35 Creatinine 1.76 mg/dL (0.60-1.20) H 10/27/18 03:35 Est GFR ( Amer) 35 (> 60) L 10/27/18 03:35 Est GFR (Non-Af Amer) 29 (> 60) L 10/27/18 03:35 BUN/Creatinine Ratio 30 (6-26) H 10/27/18 03:35 Glucose 128 mg/dL (70-105) H 10/27/18 03:35 Calcium 7.9 mg/dL (8.6-10.3) L 10/27/18 03:35 Magnesium 1.5 mg/dL (1.6-2.6) L 10/27/18 03:35 Direct Bilirubin 0.3 mg/dL (0.0-0.2) H 10/27/18 03:35 AST 149 Units/L (13-39) H 10/27/18 03:35 Alkaline Phosphatase 157 Units/L (34-104) H 10/27/18 03:35 Serum Total Protein 5.3 g/dL (6.4-8.9) L 10/27/18 03:35 Albumin 1.9 g/dL (3.5-5.7) L 10/27/18 03:35 Albumin/Globulin Ratio 0.6 (1.1-2.2) L 10/27/18 03:35 Urine Clarity Turbid (Clear) A 10/27/18 03:48 Urine Blood Moderate (Negative) H 10/27/18 03:48 Urine Bilirubin Small (Negative) H 10/27/18 03:48 Ur Leukocyte Esterase Large (Negative) H 10/27/18 03:48 Urine Microscopic WBC TNTC per hpf (0-3) H 10/27/18 03:48 Ur Squamous Epith Cells Many per lpf (None-Few) H 10/27/18 03:48 Urine Yeast Many per hpf (None Seen) H 10/27/18 03:48 Ur Culture Indicated? NO. (NO) A 10/27/18 03:48 Diabetes panel 10/27/18 Range/Units 03:35 Sodium 135 L (136-145) mEq/L Potassium 4.2 (3.5-5.1) mEq/L Chloride 103 (98-107) mEq/L Carbon Dioxide 22 L (23-29) mEq/L BUN 53 H (8-23) mg/dL Creatinine 1.76 H (0.60-1.20) mg/dL Glucose 128 H (70-105) mg/dL Calcium 7.9 L (8.6-10.3) mg/dL AST 149 H (13-39) Units/L ALT 32 (7-52) Units/L Alkaline Phosphatase 157 H (34-104) Units/L Albumin 1.9 L (3.5-5.7) g/dL Calcium panel 10/27/18 Range/Units 03:35 Calcium 7.9 L (8.6-10.3) mg/dL Albumin 1.9 L (3.5-5.7) g/dL Pituitary panel 10/27/18 Range/Units 03:35 Sodium 135 L (136-145) mEq/L Potassium 4.2 (3.5-5.1) mEq/L Chloride 103 (98-107) mEq/L Carbon Dioxide 22 L (23-29) mEq/L BUN 53 H (8-23) mg/dL Creatinine 1.76 H (0.60-1.20) mg/dL Glucose 128 H (70-105) mg/dL Calcium 7.9 L (8.6-10.3) mg/dL Adrenal panel 10/27/18 Range/Units 03:35 Sodium 135 L (136-145) mEq/L Potassium 4.2 (3.5-5.1) mEq/L Chloride 103 (98-107) mEq/L Carbon Dioxide 22 L (23-29) mEq/L BUN 53 H (8-23) mg/dL Creatinine 1.76 H (0.60-1.20) mg/dL Glucose 128 H (70-105) mg/dL Calcium 7.9 L (8.6-10.3) mg/dL Total Bilirubin 0.8 (0.3-1.0) mg/dL AST 149 H (13-39) Units/L ALT 32 (7-52) Units/L Alkaline Phosphatase 157 H (34-104) Units/L Albumin 1.9 L (3.5-5.7) g/dL All other labs normal. - Attending Attestation Review the above assessment and evaluation and agree with the above plan. I personally reviewed the CT scan images and report. There is no evidence of ostomy all of this on physical examination the wound is open with a healthy base of granulation tissue with no exudate. There is some mild redness surrounding the wound but the patient also has anasarca within the subcutaneous tissue. I do not think that she has active infection within the wound and agree with the wound VAC. I think the hyponatremia surrounding the incision is no cellulitis but more related to wound healing. Patient states that previously they tried to place a wound VAC and she had bleeding (possibly one month ago) however I think she is at minimal risk for bleeding at this time with application of wound VAC.
[2018-10-27] MEDS ORDERED: NON-FORMULARY MEDICATION 1 EACH EACH (Febuxostat [Uloric] 40 MG) PO SCH (18:00)
[2018-10-27] MEDS: Leptospermum Honey Gel 44 ML TUBE TP SCH (20:53)
--- NOTE | 2018-10-27 21:02 | Electrocardiograph Report ---
[address] [place], [place] [address] Test Date: 2018-10-27 Pat Name: Ashley Feliciano Department: [id number] Room: 2A Gender: F Apprenticeship Representative: : 1955 Requested By: Fernando Fraga Order Number: [id number] Reading MD: Angelica Gallego Measurements Intervals [place] Rate: 76 P: 33 ID: [id number] QRS: -62 QRSD: 136 T: 60 QT: 461 QTc: 519 Interpretive Statements Sinus rhythm Nonspecific IVCD with LAD Left ventricular hypertrophy Electronically Signed On 10-27-2018 21:01:03 EST by Angelica Gallego
[2018-10-28] MEDS: 0.9 % Sodium Chloride 1,000 ML IVC SCH (02:24)
[2018-10-28 03:47] LABS: Basophils # 0.1 K/mcL (0.0-0.2); Basophils % 0.5 %; Eosinophils # 0.6 K/mcL (0.0-0.6); Eosinophils % 4.7 %; Hematocrit 24.2 % (35.3-44.9); Hemoglobin 7.7 g/dL (11.5-15.4); Immature Granulocytes % 0.5 % (0-4); Lymphocytes # 2.5 K/mcL (0.6-4.6); Lymphocytes % 18.2 %; Mean Corpuscular HGB Conc 31.8 g/dL (31.6-35.5); Mean Corpuscular Hemoglobin 27.8 pg (28.0-33.3); Mean Corpuscular Volume 87.4 fL (83.0-100.0); Mean Platelet Volume 11.7 fL (9.4-12.4); Monocytes # 1.2 K/mcL (0.0-1.3); Monocytes % 8.9 %; Neutrophils # 9.3 K/mcL (1.6-8.9); Platelet Count 225 K/mcL (140-400); Red Blood Count 2.77 M/mcL (3.82-4.97); Red Cell Distribution Width 17.8 % (11.5-14.5); Segmented Neutrophils % 67.2 %
[2018-10-28 03:59] LABS: INR 1.5; Prothrombin Time 17.2 Seconds (9.4-12.1)
[2018-10-28 04:06] LABS: Calcium 7.9 mg/dL (8.6-10.3); Magnesium 1.7 mg/dL (1.6-2.6); Phosphorous 3.8 mg/dL (2.7-4.5); Potassium 3.8 mEq/L (3.5-5.1)
[2018-10-28] MEDS: Budesonide/Formoterol 160/4.5 1 PUFF INH IH SCH ×2 (07:37→19:51)
[2018-10-28] MEDS ORDERED: 0.9 % Sodium Chloride 250 ML ONE (08:13)
[2018-10-28] MEDS: Insulin LISPRO 300 UNITS/3 ML VIAL SQ SCH ×3 (08:19→17:06)
[2018-10-28] MEDS: Multivit/Ca/Min/Fe/FA 1 TAB TABLET PO SCH (08:20)
[2018-10-28] MEDS: Cholecalciferol (D-3) 1,000 UNIT TABLET PO SCH (08:20)
[2018-10-28] MEDS: *HR* Amiodarone 200 MG TABLET PO SCH (08:20)
[2018-10-28] MEDS: Pregabalin 75 MG CAPSULE PO SCH ×3 (08:20→20:08)
[2018-10-28] MEDS: Loratadine 10 MG TABLET PO SCH (08:21)
[2018-10-28] MEDS: Ertapenem 1,000 MG in 0.9 % Sodium Chloride Mini Bag 100 ML IVPB SCH (08:21)
[2018-10-28] MEDS: Aspirin Enteric Coated 81 MG Tablet PO SCH (08:21)
[2018-10-28] MEDS: Lactulose Oral Soln 20 GM/30 ML UDC PO SCH ×2 (08:26→20:06)
--- NOTE | 2018-10-28 10:28 | Palliative Progress Note ---
Date of Encounter: 10/28/18 Time of Encounter: 10:45 - Assessment and plan (1) Sacral decubitus ulcer, stage IV Current Visit: Yes Status: Chronic Assessment and plan: Surgical consult noted, and patient has wound vac in place. (2) Sepsis Current Visit: No Status: Acute Assessment and plan: ID following, cultures appear still pending. Qualifiers: Sepsis type: sepsis due to unspecified organism Qualified Code(s): A41.9 - Sepsis, unspecified organism (3) Goals of care, counseling/discussion Current Visit: Yes Status: Acute Assessment and plan: Per meeting with pt/son Daryl (POA) yesterday, they desire for patient to continue aggressive treatment for wound care and return to rehab, however, they desired a different facility and not return to [facility]. [facility] in [place] has accepted patient. She will need wound vac set up there, notified social director. Palliative will follow clinical course at a distance. (4) CKD (chronic kidney disease) Current Visit: No Status: Chronic Qualifiers: Chronic kidney disease stage: stage 3 (moderate) Qualified Code(s): N18.3 - Chronic kidney disease, stage 3 (moderate) (5) COPD (chronic obstructive pulmonary disease) Current Visit: No Status: Chronic Qualifiers: COPD type: unspecified COPD Qualified Code(s): J44.9 - Chronic obstructive pulmonary disease, unspecified (6) BRADFORD (nonalcoholic steatohepatitis) Current Visit: No Status: Chronic Assessment and plan: Meld score 17. 6 % 3 month mortality rate. Continues Lactulose BID. - Time Spent With Patient Total time spent is greater than 50% in coordination of care (as documented) at patient's floor/unit and/or counseling patient: - Subjective Interval history: Patient sleeping on my arrival, awakens easily. Denies complaints, states very tired today. Patient continues to be febrile - temp max last 24 hours 101.3. ID and Surgical consults reviewed. Patient now has wound vac in place, no surgical debridement warranted at this time. WBC 13.8, Hgb 7.7. Creatinine has decreased to 1.55. - Constitutional Vitals: Abnormal lab results WBC 13.8 K/mcL (4.3-11.1) H 10/28/18 03:30 RBC 2.77 M/mcL (3.82-4.97) L 10/28/18 03:30 Hgb 7.7 g/dL (11.5-15.4) L 10/28/18 03:30 Hct 24.2 % (35.3-44.9) L 10/28/18 03:30 MCH 27.8 pg (28.0-33.3) L 10/28/18 03:30 RDW 17.8 % (11.5-14.5) H 10/28/18 03:30 Neutrophils # 9.3 K/mcL (1.6-8.9) H 10/28/18 03:30 ESR 61 mm/hr (0-15) H 10/27/18 08:22 PT 17.2 Seconds (9.4-12.1) H 10/28/18 03:30 APTT 36.9 Seconds (26.0-36.0) H 10/27/18 03:35 Sodium 134 mEq/L (136-145) L 10/28/18 03:30 Carbon Dioxide 21 mEq/L (23-29) L 10/28/18 03:30 BUN 54 mg/dL (8-23) H 10/28/18 03:30 Creatinine 1.55 mg/dL (0.60-1.20) H 10/28/18 03:30 Est GFR ( Amer) 41 (> 60) L 10/28/18 03:30 Est GFR (Non-Af Amer) 34 (> 60) L 10/28/18 03:30 BUN/Creatinine Ratio 35 (6-26) H 10/28/18 03:30 Glucose 176 mg/dL (70-105) H 10/28/18 03:30 POC Glucose 255 mg/dL (70-99) H 10/27/18 21:09 Calcium 7.9 mg/dL (8.6-10.3) L 10/28/18 03:30 Direct Bilirubin 0.3 mg/dL (0.0-0.2) H 10/27/18 03:35 AST 149 Units/L (13-39) H 10/27/18 03:35 Alkaline Phosphatase 157 Units/L (34-104) H 10/27/18 03:35 Serum Total Protein 5.3 g/dL (6.4-8.9) L 10/27/18 03:35 Albumin 1.9 g/dL (3.5-5.7) L 10/27/18 03:35 Albumin/Globulin Ratio 0.6 (1.1-2.2) L 10/27/18 03:35 Urine Clarity Turbid (Clear) A 10/27/18 03:48 Urine Blood Moderate (Negative) H 10/27/18 03:48 Urine Bilirubin Small (Negative) H 10/27/18 03:48 Ur Leukocyte Esterase Large (Negative) H 10/27/18 03:48 Urine Microscopic WBC TNTC per hpf (0-3) H 10/27/18 03:48 Ur Squamous Epith Cells Many per lpf (None-Few) H 10/27/18 03:48 Urine Yeast Many per hpf (None Seen) H 10/27/18 03:48 Ur Culture Indicated? NO. (NO) A 10/27/18 03:48 General appearance: Present: morbidly obese, no acute distress - Head Head exam: Present: normal inspection - Respiratory Respiratory exam: Present: decreased breath sounds - Cardiovascular Cardiovascular exam: Present: +S1, +S2 - GI/Abdominal GI/Abdominal exam: Present: normal bowel sounds, soft - Extremities Exam Extremities exam: Present: normal capillary refill, normal inspection - Neurological Exam Neurological exam: Present: alert, oriented X3 Additional comments: Generalized weakness - Skin Skin exam: Present: dry, pallor, warm Additional comments: Wound vac present to decubitus ulcer. Palliative Quality Palliative Quality: Screen for Code Status: Yes, Screen for Goals of Care: Yes, Screen for Pain: Yes, If Pain Regimen Started, Initiate Bowel Regimen: Yes, Screen for Nausea/Vomitting: Yes Code Status: 10/27/18 08:39 Resuscitation Status: Active [RES] Routine Comment: Resuscitation Status: DNR-Comfort Care-Arrest - Labs CBC & Chem 7: 10/28/18 03:30 10/28/18 03:30 Labs: Laboratory Results - last 24 hr 10/27/18 10/27/18 10/27/18 03:35 08:22 08:51 WBC RBC Hgb Hct MCV MCH MCHC RDW Plt Count MPV Immature Gran % Seg Neutrophils % Lymphocytes % Monocytes % Eosinophils % Basophils % Neutrophils # Lymphocytes # Monocytes # Eosinophils # Basophils # PT INR Sodium 135 L Potassium 4.2 Chloride 103 Carbon Dioxide 22 L BUN 53 H Creatinine 1.76 H Est GFR ( Amer) 35 L Est GFR (Non-Af Amer) 29 L BUN/Creatinine Ratio 30 H Glucose 128 H POC Glucose 141 H Calculated Osmolality 296 Calcium 7.9 L Phosphorus Magnesium 1.5 L Total Bilirubin 0.8 Direct Bilirubin 0.3 H Indirect Bilirubin 0.5 AST 149 H ALT 32 Alkaline Phosphatase 157 H Creatine Kinase 54 Troponin I 0.04 H* 0.03 C-Reactive Protein 48 H Cancelled Serum Total Protein 5.3 L Albumin 1.9 L Globulin 3.4 Albumin/Globulin Ratio 0.6 L Nasal Screen MRSA (PCR) 10/27/18 10/27/18 10/27/18 13:44 16:20 17:04 WBC RBC Hgb Hct MCV MCH MCHC RDW Plt Count MPV Immature Gran % Seg Neutrophils % Lymphocytes % Monocytes % Eosinophils % Basophils % Neutrophils # Lymphocytes # Monocytes # Eosinophils # Basophils # PT INR Sodium Potassium Chloride Carbon Dioxide BUN Creatinine Est GFR ( Amer) Est GFR (Non-Af Amer) BUN/Creatinine Ratio Glucose POC Glucose 244 H 211 H Calculated Osmolality Calcium Phosphorus Magnesium Total Bilirubin Direct Bilirubin Indirect Bilirubin AST ALT Alkaline Phosphatase Creatine Kinase Troponin I 0.03 C-Reactive Protein Serum Total Protein Albumin Globulin Albumin/Globulin Ratio Nasal Screen MRSA (PCR) 10/27/18 10/27/18 10/28/18 20:10 21:09 03:30 WBC 13.8 H RBC 2.77 L Hgb 7.7 L Hct 24.2 L MCV 87.4 MCH 27.8 L MCHC 31.8 RDW 17.8 H Plt Count 225 MPV 11.7 Immature Gran % 0.5 Seg Neutrophils % 67.2 Lymphocytes % 18.2 Monocytes % 8.9 Eosinophils % 4.7 Basophils % 0.5 Neutrophils # 9.3 H Lymphocytes # 2.5 Monocytes # 1.2 Eosinophils # 0.6 Basophils # 0.1 PT INR Sodium Potassium Chloride Carbon Dioxide BUN Creatinine Est GFR ( Amer) Est GFR (Non-Af Amer) BUN/Creatinine Ratio Glucose POC Glucose 255 H Calculated Osmolality Calcium Phosphorus Magnesium Total Bilirubin Direct Bilirubin Indirect Bilirubin AST ALT Alkaline Phosphatase Creatine Kinase Troponin I C-Reactive Protein Serum Total Protein Albumin Globulin Albumin/Globulin Ratio Nasal Screen MRSA (PCR) Negative 10/28/18 10/28/18 03:30 03:30 WBC RBC Hgb Hct MCV MCH MCHC RDW Plt Count MPV Immature Gran % Seg Neutrophils % Lymphocytes % Monocytes % Eosinophils % Basophils % Neutrophils # Lymphocytes # Monocytes # Eosinophils # Basophils # PT 17.2 H INR 1.5 Sodium 134 L Potassium 3.8 Chloride 106 Carbon Dioxide 21 L BUN 54 H Creatinine 1.55 H Est GFR ( Amer) 41 L Est GFR (Non-Af Amer) 34 L BUN/Creatinine Ratio 35 H Glucose 176 H POC Glucose Calculated Osmolality 297 Calcium 7.9 L Phosphorus 3.8 Magnesium 1.7 Total Bilirubin Direct Bilirubin Indirect Bilirubin AST ALT Alkaline Phosphatase Creatine Kinase Troponin I C-Reactive Protein Serum Total Protein Albumin Globulin Albumin/Globulin Ratio Nasal Screen MRSA (PCR) - ABG Interpretation ABG results: PT/INR, D-dimer PT 17.2 Seconds (9.4-12.1) H 10/28/18 03:30 Consult Discharge Plan - Plan Referrals: Lang Jarvis DO [Primary Care Provider] -
--- NOTE | 2018-10-28 10:34 | Infectious Disease Progress No ---
Date of Encounter: 10/28/18 Time of Encounter: 09:45 - Assessment and Plan (1) Sepsis Current Visit: No Status: Acute Severe sepsis: The patient had 2 sepsis criteria plus acute kidney injury on admission. Likely secondary to decubitus ulcer infection vs. UTI vs. other. White blood cell count remains elevated. She was febrile with a MAXIMUM TEMPERATURE of 101.3 overnight. The cultures drawn sets are pending. Recommendations: Await blood cultures. Get wound cultures, aerobic and anaerobic.--> Pending. Check respiratory infectious panel. Await blood cultures. Wound care per surgery team recommendations. Aggressive offloading and wound care per nursing. Get records from [facility] re: the diagnosis and treatment plan for sacral OM. Continue Ertapenem 1 gram IV daily. Continue vancomycin IV. Pharmacy to dose. Goal trough approximately 15. Duration of treatment depends on the clinical picture. Monitor renal function for drug toxicity and dose adjust antibiotics. Place the patient in contact precautions for history of E. coli ESBL in the bone cultures from [facility]. Qualifiers: Sepsis type: sepsis due to unspecified organism Qualified Code(s): A41.9 - Sepsis, unspecified organism (2) Decubitus ulcer, infected Current Visit: Yes Status: Acute Location: Sacral wound. Causative organism: P. mirabilis and E. coli ESBL per [facility] bone cultures. The patient originally told her she was diagnosed with osteomyelitis at [facility], but further review of the records indicates that she was diagnosed with osteomyelitis of the sacrum in September 2018 at [facility]. The cultures indicate Proteus and ESBL Escherichia coli from the sacrum bone, as well as anaerobes. She was discharged back to the [facility] with plans to complete a 6 week course and instructions to follow up with [facility] infectious disease. CT of the abdomen and pelvis showed cellulitis with gas and an abscess could not be excluded. Concerned that the patient has chronically loose stools from her lactulose that is likely contaminating the wound constantly since she is unable to get out of bed to defecate. ESR and CRP elevated. General surgery consulted. No surgical intervention warranted at this time. Currently on Vanc and Ertapenem. Qualifiers: Pressure injury stage: stage 4 Qualified Code(s): L89.94 - Pressure ulcer of unspecified site, stage 4; L08.9 - Local infection of the skin and subcutane ous tissue, unspecified (3) Cellulitis Current Visit: No Status: Chronic Location: Sacrum. Likely secondary to sacral wound infection. Causative organism: Unclear. Currently on Iv Vanc and Ertapenem. Qualifiers: Site of cellulitis: extremity Site of cellulitis of extremity: lower extremity Laterality: unspecified laterality Qualified Code(s): L03.119 - Cellulitis of unspecified part of limb (4) Diabetes mellitus Current Visit: No Status: Chronic Recommend strict glucose control. Qualifiers: Diabetes mellitus type: type 2 Diabetes mellitus intermediate manager insulin use: without intermediate manager use Diabetes mellitus complication status: with kidney complications Diabetes mellitus complication detail: with nephropathy Qualified Code(s): E11.21 - Type 2 diabetes mellitus with diabetic nephropathy (5) HLD (hyperlipidemia) Current Visit: No Status: Chronic Qualifiers: Hyperlipidemia type: pure hypercholesterolemia Qualified Code(s): E78.00 - Pure hypercholesterolemia, unspecified; E78.0 - Pure hypercholesterolemia (6) History of allergy to multiple drugs Current Visit: No Status: Chronic The patient has multiple allergies which compensates and limits our ability in selecting antibiotic therapy. Cipro-anaphylaxis Biaxin-hives Levaquin-anaphylaxis Bactrim-hives Cefaclor-anaphylaxis (7) Morbidly obese Current Visit: No Status: Chronic (8) BRADFORD (nonalcoholic steatohepatitis) Current Visit: No Status: Chronic The patient states she follows with a industrial economics professor up in [place]. MELD score 17. (9) OLIVER (obstructive sleep apnea) Current Visit: No Status: Chronic (10) PAD (peripheral artery disease) Current Visit: No Status: Chronic (11) Pulmonary hypertension Current Visit: No Status: Chronic (12) Acute kidney injury superimposed on chronic kidney disease Current Visit: No Status: Resolved Likely secondary to sepsis and poor by mouth intake. Improved. Continue to trend. Avoid nephrotoxins and dose adjust antibiotics. (13) History of DVT of lower extremity Current Visit: No Status: Resolved (14) Atrial fibrillation Current Visit: No Status: Chronic Qualifiers: Atrial fibrillation type: chronic Qualified Code(s): I48.2 - Chronic atrial fibrillation (15) COPD (chronic obstructive pulmonary disease) Current Visit: No Status: Chronic Qualifiers: COPD type: unspecified COPD Qualified Code(s): J44.9 - Chronic obstructive pulmonary disease, unspecified - Subjective Interval history: Patient seen and examined. No acute events noted overnight. Patient states that she feels okay. She had a fever overnight, but denies any chills or rigors. Denies chest pain. States her breathing is at baseline and she denies a cough. She reports some nausea and states she was able to eat breakfast this morning. Denies vomiting or diarrhea. Denies abdominal pain or urinary complaints. Denies any oral thrush or new skin lesions. Denies any pain at this time. Infect Dis PN-Objective Data - Labs CBC & Chem 7: 10/30/18 17:22 10/30/18 04:30 Labs: Laboratory Results - last 24 hr 10/27/18 10/27/18 10/27/18 03:35 08:22 08:51 WBC RBC Hgb Hct MCV MCH MCHC RDW Plt Count MPV Immature Gran % Seg Neutrophils % Lymphocytes % Monocytes % Eosinophils % Basophils % Neutrophils # Lymphocytes # Monocytes # Eosinophils # Basophils # PT INR Sodium 135 L Potassium 4.2 Chloride 103 Carbon Dioxide 22 L BUN 53 H Creatinine 1.76 H Est GFR ( Amer) 35 L Est GFR (Non-Af Amer) 29 L BUN/Creatinine Ratio 30 H Glucose 128 H POC Glucose 141 H Calculated Osmolality 296 Calcium 7.9 L Phosphorus Magnesium 1.5 L Total Bilirubin 0.8 Direct Bilirubin 0.3 H Indirect Bilirubin 0.5 AST 149 H ALT 32 Alkaline Phosphatase 157 H Creatine Kinase 54 Troponin I 0.04 H* 0.03 C-Reactive Protein 48 H Cancelled Serum Total Protein 5.3 L Albumin 1.9 L Globulin 3.4 Albumin/Globulin Ratio 0.6 L Nasal Screen MRSA (PCR) 10/27/18 10/27/18 10/27/18 13:44 16:20 17:04 WBC RBC Hgb Hct MCV MCH MCHC RDW Plt Count MPV Immature Gran % Seg Neutrophils % Lymphocytes % Monocytes % Eosinophils % Basophils % Neutrophils # Lymphocytes # Monocytes # Eosinophils # Basophils # PT INR Sodium Potassium Chloride Carbon Dioxide BUN Creatinine Est GFR ( Amer) Est GFR (Non-Af Amer) BUN/Creatinine Ratio Glucose POC Glucose 244 H 211 H Calculated Osmolality Calcium Phosphorus Magnesium Total Bilirubin Direct Bilirubin Indirect Bilirubin AST ALT Alkaline Phosphatase Creatine Kinase Troponin I 0.03 C-Reactive Protein Serum Total Protein Albumin Globulin Albumin/Globulin Ratio Nasal Screen MRSA (PCR) 10/27/18 10/27/18 10/28/18 20:10 21:09 03:30 WBC 13.8 H RBC 2.77 L Hgb 7.7 L Hct 24.2 L MCV 87.4 MCH 27.8 L MCHC 31.8 RDW 17.8 H Plt Count 225 MPV 11.7 Immature Gran % 0.5 Seg Neutrophils % 67.2 Lymphocytes % 18.2 Monocytes % 8.9 Eosinophils % 4.7 Basophils % 0.5 Neutrophils # 9.3 H Lymphocytes # 2.5 Monocytes # 1.2 Eosinophils # 0.6 Basophils # 0.1 PT INR Sodium Potassium Chloride Carbon Dioxide BUN Creatinine Est GFR ( Amer) Est GFR (Non-Af Amer) BUN/Creatinine Ratio Glucose POC Glucose 255 H Calculated Osmolality Calcium Phosphorus Magnesium Total Bilirubin Direct Bilirubin Indirect Bilirubin AST ALT Alkaline Phosphatase Creatine Kinase Troponin I C-Reactive Protein Serum Total Protein Albumin Globulin Albumin/Globulin Ratio Nasal Screen MRSA (PCR) Negative 10/28/18 10/28/18 03:30 03:30 WBC RBC Hgb Hct MCV MCH MCHC RDW Plt Count MPV Immature Gran % Seg Neutrophils % Lymphocytes % Monocytes % Eosinophils % Basophils % Neutrophils # Lymphocytes # Monocytes # Eosinophils # Basophils # PT 17.2 H INR 1.5 Sodium 134 L Potassium 3.8 Chloride 106 Carbon Dioxide 21 L BUN 54 H Creatinine 1.55 H Est GFR ( Amer) 41 L Est GFR (Non-Af Amer) 34 L BUN/Creatinine Ratio 35 H Glucose 176 H POC Glucose Calculated Osmolality 297 Calcium 7.9 L Phosphorus 3.8 Magnesium 1.7 Total Bilirubin Direct Bilirubin Indirect Bilirubin AST ALT Alkaline Phosphatase Creatine Kinase Troponin I C-Reactive Protein Serum Total Protein Albumin Globulin Albumin/Globulin Ratio Nasal Screen MRSA (PCR) Cultures: Cultures 10/27/18 11:38 Wound Culture - Preliminary Other-Specify in Comments Culture is incubating. 10/27/18 11:38 Anaerobic Culture - Preliminary Other-Specify in Comments Culture is incubating. 10/27/18 11:25 Blood Culture - Preliminary Peripheral Venipuncture Culture is incubating and being continuously monitored for growth. Final report to follow. 10/27/18 08:22 Blood Culture - Preliminary Peripheral Venipuncture Culture is incubating and being continuously monitored for growth. Final report to follow. 10/27/18 08:15 Blood Culture - Preliminary Peripheral Venipuncture Culture is incubating and being continuously monitored for growth. Final report to follow. 10/27/18 03:35 Blood Culture - Preliminary Peripheral Venipuncture Culture is incubating and being continuously wang tored for growth. Final report to follow. 10/27/18 03:52 Influenza Types A,B Antigen - Final Nasopharyngeal Serology 10/27/18 10/27/18 Range/Units 20:10 03:48 Urine Color Dark Yellow (Yellow) Urine Clarity Turbid A (Clear) Urine pH 5.0 (5.0-8.0) pH Units Ur Specific [place] 1.024 (1.010-1.025) Urine Protein Trace (Neg-Trace) mg/dL Urine Glucose (UA) Normal (Normal) mg/dL Urine Ketones Negative (Negative) mg/dL Urine Blood Moderate H (Negative) Urine Nitrite Negative (Negative) Urine Bilirubin Small H (Negative) Urine Urobilinogen Normal (Normal) mg/dL Ur Leukocyte Esterase Large H (Negative) Urine Microscopic RBC 0-3 (0-3) per hpf Urine Microscopic WBC TNTC H (0-3) per hpf Ur Squamous Epith Cells Many H (None-Few) per lpf Urine Bacteria None Seen (None-Few) per hpf Hyaline Casts None Seen (None-Few) per lpf Urine Yeast Many H (None Seen) per hpf Ur Culture Indicated? NO. A (NO) Nasal Screen MRSA (PCR) Negative (Negative) Exam - Constitutional Vitals: Temp Pulse Resp BP Pulse Ox 101.3 F H 75 18 124/57 97 10/28/18 07:15 10/28/18 07:15 10/28/18 07:39 10/28/18 07:15 10/28/18 07:39 General appearance: cooperative, no acute distress, obese - Head Head exam: Present: atraumatic, normal inspection, normocephalic - Eye Eye exam: Present: EOMI, normal appearance, PERRL Pupils: Present: normal accommodation - ENT ENT exam: Present: mucous membranes moist - Neck Neck exam: Present: normal inspection - Respiratory Respiratory exam: Present: CTAB. Absent: rales, respiratory distress, rhonchi, wheezes - Cardiovascular Cardiovascular exam: Present: RRR, +S1, +S2 - GI/Abdominal GI/Abdominal exam: Present: distended (Obese), normal bowel sounds, soft. Absent: tenderness - Extremities Exam Extremities exam: Present: normal inspection. Absent: joint swelling, pedal edema, tenderness - Back Exam Additional comments: Wound VAC noted to sacral decubitus ulcer. No leak. No drainage noted in the canister. - Neurological Exam Neurological exam: Present: alert, oriented X3, no focal deficits. Absent: strengths equal and symetr throughout (Weakness noted to the bilateral lower extremities) - Psychiatric Psychiatric exam: Present: normal affect, normal mood - Skin Skin exam: Present: dry, intact, normal color, warm Consult Discharge Plan - Plan Referrals: Lang Jarvis DO [Primary Care Provider] - - Attending Attestation I have personally performed a face to face evaluation on this patient. I have reviewed and agree with the care plan. History and Exam by me shows: clinically unchanged. had a low grade fever. etiology not clear Get wound cultures, aerobic and anaerobic.--> Pending. Check respiratory infectious panel. Await blood cultures. Wound care per surgery team recommendations. Aggressive offloading and wound care per nursing. Get records from [facility] re: the diagnosis and treatment plan for sacral OM. Continue Ertapenem 1 gram IV daily. Continue vancomycin IV. Pharmacy to dose. Goal trough approximately 15. Duration of treatment depends on the clinical picture. Monitor renal function for drug toxicity and dose adjust antibiotics. Place the patient in contact precautions for history of E. coli ESBL in the bone cultures from [facility].
--- NOTE | 2018-10-28 12:09 | Internal Med Progress Note ---
Hospitalist Progress Note - Encounter Date of Encounter: 10/28/18 Time of Encounter: 12:08 - Subjective Interval History: I have seen and evaluated the patient at bedside. Patient reports generalized weakness. report back pain. denies chest pain, nausea or vomiting. - Exam Vitals: Temp Pulse Resp BP Pulse Ox 98.6 F 83 18 147/70 100 10/28/18 11:30 10/28/18 11:30 10/28/18 11:30 10/28/18 11:30 10/28/18 11:30 Exam: Vitals: Reviewed. General: Alert and oriented x3. In mild distress due to back pain HEENT: Dry oral mucosa, EOM, pupils equal, round and reactive. Cardiovascular: RRR, normal S1 & S2, no rubs, murmurs or gallops. Lungs: CTA b/l, no wheezes or crackles. Abdomen: Obese, soft, non-tender, no rigidity. Extremities: stage IV sacral decubitus ulcer, decibitus ulcer on the right heel. Neurological: Normal cognition and motor skills. Rest of the physical exam is non contributory - Assessment and Plan (1) Sepsis Current Visit: No Status: Acute Assessment and Plan: due to stage IV sacral decubitus ulcer. patient on broad spectrum IV antibiotics per ID recommendations. On meropenem and vancomyin per pharmacy dosing. would care per sugery recommendations continue IV fluids at 60mls/hr x2 bags total Blood culture: No growth, pending final report (2) Elevated troponin Current Visit: Yes Status: Resolved Assessment and Plan: likely due to sepsis. repeat trops WNL. (3) Paroxysmal a-fib Current Visit: No Status: Chronic Assessment and Plan: patient is on amiodarone 200mg/PO daily and aspirin 81mg/PO daily for secondary stroke prevention. Will resume metoprolol 24mg/PO HS (4) OLIVER (obstructive sleep apnea) Current Visit: No Status: Chronic Assessment and Plan: started on nocturnal cpap (5) Morbidly obese Current Visit: No Status: Chronic (6) Cirrhosis Current Visit: No Status: Chronic Assessment and Plan: outpatient f/o with GI (7) Acute renal failure superimposed on stage 3 chronic kidney disease Current Visit: Yes Status: Acute Assessment and Plan: possible due to low preload in the setting of sepsis. patient on IV hydration. avoid nephrotoxic medications (8) Sacral decubitus ulcer, stage IV Current Visit: Yes Status: Chronic Assessment and Plan: plan of care as per problem #1. (9) Chronic anemia Current Visit: Yes Status: Chronic Assessment and Plan: H&H dropped. possible due to IV fluids. r/o GI bleed. FOTB ordered. will continue ferrous sulfate Transfuse base on protocol or if patient becomes hypotensive. (10) HTN (hypertension) Current Visit: No Status: Chronic Assessment and Plan: BP controlled. metoprolol home dose resumed. Furosemide held due to ANGÉLICA. (11) CAD (coronary artery disease) Current Visit: No Status: Chronic Assessment and Plan: Continue aspirin 81 mg daily. (12) CHF (congestive heart failure) Current Visit: No Status: Chronic Assessment and Plan: Not acutely exacerbated. Furosemide held due to ANGÉLICA. strict intake and output. monitor closely for signs of volume overload. (13) COPD (chronic obstructive pulmonary disease) Current Visit: No Status: Chronic Assessment and Plan: chest is clear to auscultation. on symbicort and bronchodilators PRN. (14) DM (diabetes mellitus), type 2 Current Visit: No Status: Chronic Assessment and Plan: patient started on levemir 5 units hs, continue lispro low dose sliding scale ac. (15) Prolonged QT interval Current Visit: Yes Status: Chronic DVT Prophylaxis: mechanical DVT prophylaxis. no chemical dvt prophylaxis pending FOBT report. - Summary of Assessment and Plan Summary of Assessment and Plan: Patient to remain in the hospital due to sepsis due to Stage IV sacral decubitus ulcer. On broad spectrum IV antibiotics. - Time Spent with Patient Total time spent is greater than 50% in coordination of care (as documented) at patient's floor/unit and/or counseling patient: Greater than 35 minutes (45) Plan of Care Discussed with: nurse Internal Medicine: Result - Labs CBC & Chem 7: 10/28/18 03:30 10/28/18 03:30 Labs: Short CBC 10/28/18 Range/Units 03:30 WBC 13.8 H (4.3-11.1) K/mcL Hgb 7.7 L (11.5-15.4) g/dL Hct 24.2 L (35.3-44.9) % Plt Count 225 (140-400) K/mcL Neutrophils # 9.3 H (1.6-8.9) K/mcL BMP 10/28/18 03:30 Sodium 134 L Potassium 3.8 Chloride 106 Carbon Dioxide 21 L BUN 54 H Creatinine 1.55 H Glucose 176 H Calcium 7.9 L Cardiac Enzymes 10/27/18 Range/Units 16:20 Troponin I 0.03 (< 0.04) ng/mL - ABG Interpretation ABG results: PT/INR, D-dimer PT 17.2 Seconds (9.4-12.1) H 10/28/18 03:30 Consult Discharge Plan - Plan Referrals: Lang Jarvis DO [Primary Care Provider] - (1) Sepsis Qualifiers: Sepsis type: sepsis due to unspecified organism Qualified Code(s): A41.9 - Sepsis, unspecified organism (6) Cirrhosis Qualifiers: Hepatic cirrhosis type: other cirrhosis Qualified Code(s): K74.69 - Other cirrhosis of liver (7) Acute renal failure superimposed on stage 3 chronic kidney disease Qualifiers: Acute renal failure type: unspecified Qualified Code(s): N17.9 - Acute kidney failure, unspecified; N18.3 - Chronic kidney disease, stage 3 (moderate) (10) HTN (hypertension) Qualifiers: Hypertension type: essential hypertension Qualified Code(s): I10 - Essential (primary) hypertension (11) CAD (coronary artery disease) Qualifiers: Coronary Disease-Associated Artery/Lesion type: [place] artery [place] vs. transplanted heart: [place] heart Associated angina: without angina Qualified Code(s): I25.10 - Atherosclerotic heart disease of [place] coronary artery wit hout angina pectoris (13) COPD (chronic obstructive pulmonary disease) Qualifiers: COPD type: unspecified COPD Qualified Code(s): J44.9 - Chronic obstructive pulmonary disease, unspecified (14) DM (diabetes mellitus), type 2 Qualifiers: Diabetes mellitus rubber trimmer insulin use: with rubber trimmer use Diabetes mellitus complication status: with kidney complications Diabetes mellitus complication detail: with chronic kidney disease Chronic kidney disease stage: stage 3 (moderate) Qualified Code(s): E11.22 - Type 2 diabetes mellitus with diabetic chronic kidney disease; N18.3 - Chronic kidney disease, stage 3 (moderate); Z79.4 - USP (current) use of insulin
[2018-10-28 14:32] LABS: Adenovirus Not Detected (Not Detect); Bordetella Pertussis Not Detected (Not Detect); Chlamydophila pneumoniae Not Detected (Not Detect); Coronavirus 229E Not Detected (Not Detect); Coronavirus HKU1 Not Detected (Not Detect); Coronavirus NL63 Not Detected (Not Detect); Coronavirus OC43 Not Detected (Not Detect); Human Metapneumovirus Not Detected (Not Detect); Human Rhinovirus/Enterovirus Not Detected (Not Detect); Influenza A Subtype 2009 H1 Not Detected (Not Detect); Influenza A Untypeable Not Detected (Not Detect); Influenza B Not Detected (Not Detect); Mycoplasma pneumoniae Not Detected (Not Detect); Parainfluenza Virus 1 Not Detected (Not Detect); Parainfluenza Virus 2 Not Detected (Not Detect); Parainfluenza Virus 3 Not Detected (Not Detect); Parainfluenza Virus 4 Not Detected (Not Detect); Respiratory Syncytial Virus Not Detected (Not Detect)
[2018-10-28] MEDS: Acetaminophen 325 MG TABLET PO PRN (15:55)
[2018-10-28] MEDS: Metoprolol XL (24 HR) Succ 25 MG TAB.ER.24H PO SCH (17:18)
[2018-10-28] MEDS ORDERED: Insulin DETEMIR 100 UNIT/ML X5UNITS SQ SCH (21:00)
[2018-10-29] MEDS: Leptospermum Honey Gel 44 ML TUBE TP SCH ×2 (00:36→21:43)
[2018-10-29 04:26] LABS: Basophils # 0.1 K/mcL (0.0-0.2); Basophils % 0.5 %; Eosinophils # 0.5 K/mcL (0.0-0.6); Eosinophils % 2.7 %; Hematocrit 25.4 % (35.3-44.9); Immature Granulocytes % 0.6 % (0-4); Lymphocytes % 11.5 %; Mean Corpuscular HGB Conc 31.5 g/dL (31.6-35.5); Mean Corpuscular Hemoglobin 27.3 pg (28.0-33.3); Mean Corpuscular Volume 86.7 fL (83.0-100.0); Mean Platelet Volume 11.2 fL (9.4-12.4); Monocytes # 1.5 K/mcL (0.0-1.3); Monocytes % 8.5 %; Neutrophils # 13.5 K/mcL (1.6-8.9); Platelet Count 243 K/mcL (140-400); Red Blood Count 2.93 M/mcL (3.82-4.97); Red Cell Distribution Width 17.9 % (11.5-14.5); Segmented Neutrophils % 76.2 %
[2018-10-29 04:42] LABS: Calcium 8.3 mg/dL (8.6-10.3); Magnesium 1.7 mg/dL (1.6-2.6); Phosphorous 4.4 mg/dL (2.7-4.5); Potassium 4.1 mEq/L (3.5-5.1)
[2018-10-29] MEDS ORDERED: Furosemide 40 MG/4 ML VIAL IVP SCH (09:00)
[2018-10-29] MEDS: Ertapenem 1,000 MG in 0.9 % Sodium Chloride Mini Bag 100 ML IVPB SCH (09:40)
[2018-10-29] MEDS: *HR* Amiodarone 200 MG TABLET PO SCH (09:41)
[2018-10-29] MEDS: Pregabalin 75 MG CAPSULE PO SCH ×3 (09:41→21:43)
[2018-10-29] MEDS: Cholecalciferol (D-3) 1,000 UNIT TABLET PO SCH (09:41)
[2018-10-29] MEDS: Multivit/Ca/Min/Fe/FA 1 TAB TABLET PO SCH (09:41)
[2018-10-29] MEDS: Insulin LISPRO 300 UNITS/3 ML VIAL SQ SCH ×3 (09:41→17:24)
[2018-10-29] MEDS: Aspirin Enteric Coated 81 MG Tablet PO SCH (09:41)
[2018-10-29] MEDS: Loratadine 10 MG TABLET PO SCH (09:41)
[2018-10-29] MEDS: Budesonide/Formoterol 160/4.5 1 PUFF INH IH SCH ×2 (10:47→20:14)
[2018-10-29] MEDS: Lactulose Oral Soln 20 GM/30 ML UDC PO SCH ×2 (11:47→21:42)
--- NOTE | 2018-10-29 12:39 | Internal Med Progress Note ---
Hospitalist Progress Note - Encounter Date of Encounter: 10/29/18 Time of Encounter: 12:37 - Subjective Interval History: I have seen and evaluated the patient at bedside. she reports have sore throat and non-productive cough. denies chest pain of abdominal pain. No nausea or vomiting. - Exam Vitals: Temp Pulse Resp BP Pulse Ox 97.8 F 63 20 106/62 100 10/29/18 10:57 10/29/18 10:57 10/29/18 10:57 10/29/18 10:57 10/29/18 10:57 Exam: Vitals: Reviewed. General: Alert and oriented x3. In mild distress due to sore throat HEENT: oral mucosa moist, EOM, pupils equal, round and reactive. Cardiovascular: RRR, normal S1 & S2, no rubs, murmurs or gallops. Lungs: CTA b/l, no wheezes or crackles. Abdomen: Obese, soft, non-tender, no rigidity. NABS in all 4 quadrants Extremities: stage IV sacral decubitus ulcer, decibitus ulcer on the right heel. Neurological: Normal cognition Rest of the physical exam is non contributory - Assessment and Plan (1) Sepsis Current Visit: No Status: Acute Assessment and Plan: BP stable. patient still spiking low grade fever. on broad spectrum IV antibiotics per ID. Will discuss with ID about possibility of adjusting antibiotic coverage Blood culture: on bottle growing gram positive rods. wound culture: Gram positive cocci DC iv fluids (2) Paroxysmal a-fib Current Visit: No Status: Chronic Assessment and Plan: rate controlled on Metoprolol and amiodarone. No anticoagulation due to Hx og GI bleeding. On aspirin (3) OLIVER (obstructive sleep apnea) Current Visit: No Status: Chronic Assessment and Plan: Nocturnal bipap (4) Morbidly obese Current Visit: No Status: Chronic (5) Acute renal failure superimposed on stage 3 chronic kidney disease Current Visit: Yes Status: Acute Assessment and Plan: kidney function back to baseline. on nephroprotective strategies (6) Sacral decubitus ulcer, stage IV Current Visit: Yes Status: Chronic Assessment and Plan: patient with wound vac per surgery recommendations dressing per wound care and surgery recommendations (7) Chronic anemia Current Visit: Yes Status: Chronic Assessment and Plan: H&H has been stable. FOBT ordered. We will transfuse patient based on protocol. (8) HTN (hypertension) Current Visit: No Status: Chronic Assessment and Plan: Blood pressure controlled. Patient on furosemide and metoprolol. (9) CAD (coronary artery disease) Current Visit: No Status: Chronic Assessment and Plan: Continue aspirin 81 mg. (10) CHF (congestive heart failure) Current Visit: No Status: Chronic Assessment and Plan: IV fluid discontinued. Mild pulmonary congestion and repeat chest x-ray. Started on furosemide 20 mg IV daily. Daily weight. On metoprolol 25 mg by mouth daily. (11) COPD (chronic obstructive pulmonary disease) Current Visit: No Status: Chronic Assessment and Plan: Not an acute exacerbation. Patient on Symbicort and Singulair. Continue bronchodilators every 6 hours when necessary. (12) DM (diabetes mellitus), type 2 Current Visit: No Status: Chronic Assessment and Plan: Blood sugar suboptimally controlled. Increase Levemir to 10 units twice a day. Continue lispro low-dose sliding scale before meals. (13) Prolonged QT interval Current Visit: Yes Status: Chronic (14) Elevated troponin Current Visit: Yes Status: Resolved (15) Cirrhosis Current Visit: No Status: Chronic (16) Bacteremia Current Visit: Yes Status: Acute Assessment and Plan: plan of care as per problem #1 DVT Prophylaxis: On heparin subQ. - Summary of Assessment and Plan Summary of Assessment and Plan: patient to remain in the hospital due to sepsis. - Time Spent with Patient Total time spent is greater than 50% in coordination of care (as documented) at patient's floor/unit and/or counseling patient: Greater than 35 minutes (40) Plan of Care Discussed with: patient (and the nurse.) Internal Medicine: Result - Labs CBC & Chem 7: 10/29/18 04:00 10/29/18 04:00 Labs: Short CBC 10/29/18 Range/Units 04:00 WBC 17.7 H (4.3-11.1) K/mcL Hgb 8.0 L (11.5-15.4) g/dL Hct 25.4 L (35.3-44.9) % Plt Count 243 (140-400) K/mcL Neutrophils # 13.5 H (1.6-8.9) K/mcL BMP 10/29/18 04:00 Sodium 134 L Potassium 4.1 Chloride 107 Carbon Dioxide 21 L BUN 56 H Creatinine 1.27 H Glucose 225 H Calcium 8.3 L - ABG Interpretation ABG results: PT/INR, D-dimer PT 17.2 Seconds (9.4-12.1) H 10/28/18 03:30 - Impressions Impressions Chest X-Ray 10/28/18 18:14 IMPRESSION: Mild pulmonary edema, similar in appearance. D/ / Debra Gomez MD / Debra Gomez MD Interpreting Provider: Debra Gomez MD Consult Discharge Plan - Plan Referrals: Lang Jarvis DO [Primary Care Provider] - (1) Sepsis Qualifiers: Sepsis type: sepsis due to unspecified organism Qualified Code(s): A41.9 - Sepsis, unspecified organism (5) Acute renal failure superimposed on stage 3 chronic kidney disease Qualifiers: Acute renal failure type: unspecified Qualified Code(s): N17.9 - Acute kidney failure, unspecified; N18.3 - Chronic kidney disease, stage 3 (moderate) (8) HTN (hypertension) Qualifiers: Hypertension type: essential hypertension Qualified Code(s): I10 - Essential (primary) hypertension (9) CAD (coronary artery disease) Qualifiers: Coronary Disease-Associated Artery/Lesion type: [place] artery [place] vs. transplanted heart: [place] heart Associated angina: without angina Qualified Code(s): I25.10 - Atherosclerotic heart disease of [place] coronary artery without angina pectoris (11) COPD (chronic obstructive pulmonary disease) Qualifiers: COPD type: unspecified COPD Qualified Code(s): J44.9 - Chronic obstructive pulmonary disease, unspecified (12) DM (diabetes mellitus), type 2 Qualifiers: Diabetes mellitus oil heaterman insulin use: with [facility] use Diabetes mellitus complication status: with kidney complications Diabetes mellitus complication detail: with chronic kidney disease Chronic kidney disease stage: stage 3 (moderate) Qualified Code(s): E11.22 - Type 2 diabetes mellitus with diabetic chronic kidney disease; N18.3 - Chronic kidney disease, stage 3 (moderate); Z79.4 - 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
[2018-10-29] MEDS: Metoprolol XL (24 HR) Succ 25 MG TAB.ER.24H PO SCH (17:29)
[2018-10-29] MEDS: *HR* Heparin 5,000 UNIT/ML VIAL SQ SCH (17:29)
[2018-10-29] MEDS: Insulin DETEMIR 100 UNIT/ML X5UNITS SQ SCH (21:54)
[2018-10-30 04:46] LABS: Basophils # 0.1 K/mcL (0.0-0.2); Basophils % 0.7 %; Eosinophils # 0.7 K/mcL (0.0-0.6); Eosinophils % 5.8 %; Hematocrit 22.8 % (35.3-44.9); Hemoglobin 7.2 g/dL (11.5-15.4); Immature Granulocytes % 0.3 % (0-4); Lymphocytes # 1.9 K/mcL (0.6-4.6); Lymphocytes % 15.4 %; Mean Corpuscular HGB Conc 31.6 g/dL (31.6-35.5); Mean Corpuscular Hemoglobin 27.3 pg (28.0-33.3); Mean Corpuscular Volume 86.4 fL (83.0-100.0); Mean Platelet Volume 11.6 fL (9.4-12.4); Monocytes % 8.3 %; Neutrophils # 8.5 K/mcL (1.6-8.9); Platelet Count 230 K/mcL (140-400); Red Blood Count 2.64 M/mcL (3.82-4.97); Red Cell Distribution Width 17.9 % (11.5-14.5); Segmented Neutrophils % 69.5 %
[2018-10-30 05:05] LABS: Calcium 7.9 mg/dL (8.6-10.3); Magnesium 1.8 mg/dL (1.6-2.6); Phosphorous 4.1 mg/dL (2.7-4.5); Potassium 3.7 mEq/L (3.5-5.1)
[2018-10-30] MEDS: Budesonide/Formoterol 160/4.5 1 PUFF INH IH SCH ×2 (07:15→20:19)
[2018-10-30] MEDS: *HR* Heparin 5,000 UNIT/ML VIAL SQ SCH ×2 (07:37→17:19)
[2018-10-30] MEDS: Ertapenem 1,000 MG in 0.9 % Sodium Chloride Mini Bag 100 ML IVPB SCH (08:45)
[2018-10-30] MEDS: Lactulose Oral Soln 20 GM/30 ML UDC PO SCH ×2 (08:46→21:13)
[2018-10-30] MEDS: *HR* Amiodarone 200 MG TABLET PO SCH (08:47)
[2018-10-30] MEDS: Multivit/Ca/Min/Fe/FA 1 TAB TABLET PO SCH (08:47)
[2018-10-30] MEDS: Cholecalciferol (D-3) 1,000 UNIT TABLET PO SCH (08:47)
[2018-10-30] MEDS: Aspirin Enteric Coated 81 MG Tablet PO SCH (08:47)
[2018-10-30] MEDS: Insulin DETEMIR 100 UNIT/ML X5UNITS SQ SCH ×2 (08:47→21:19)
[2018-10-30] MEDS: Pregabalin 75 MG CAPSULE PO SCH ×3 (08:47→21:14)
[2018-10-30] MEDS: Loratadine 10 MG TABLET PO SCH (08:47)
[2018-10-30] MEDS: Insulin LISPRO 300 UNITS/3 ML VIAL SQ SCH ×3 (08:48→17:19)
[2018-10-30] MEDS ORDERED: Furosemide 40 MG/4 ML VIAL IVP SCH (09:00)
--- NOTE | 2018-10-30 11:01 | Palliative Progress Note ---
Date of Encounter: 10/30/18 Time of Encounter: 10:30 - Assessment and plan (1) Goals of care, counseling/discussion Current Visit: Yes Status: Acute Assessment and plan: Called patients marilu Brito # [phone] to give update on patients condition. Updated on wound cultures and slight temp of 99. 3. Leukocytosis improving. Chaparrita anglin agrees to current plan of care with wound vac and antibiotics. Plan is for patient to DC to ECF closer to [place] where marilu Brito lives. SW notfied [facility] that patient will have wound vac st DC. Patient is DNRCC - A. (2) Sacral decubitus ulcer, stage IV Current Visit: Yes Status: Chronic Assessment and plan: Wound Vac intact. Patient with loose stool d/t lactulose treatment for end-stage liver dx. Patient with history of anemia and has hemorrhoids so avoiding rectal tube. Wound vac is removed and replaced as patient is having expected stool from lactulose. Encouraged patient to request bedpan to facilitate keeping sacral wound clean. (3) Sepsis Current Visit: Yes Status: Acute Assessment and plan: Gram positive cocci noted to sacral wound. ID following patient and will adjust management per their team. Qualifiers: Sepsis type: sepsis due to unspecified organism Qualified Code(s): A41.9 - Sepsis, unspecified organism - Time Spent With Patient Total time spent is greater than 50% in coordination of care (as documented) at patient's floor/unit and/or counseling patient: 25 - 35 minutes - Subjective Interval history: Patient awakens easy. Speech clear. Oriented x 3. Patient denies complaints. - Constitutional Vitals: Abnormal lab results WBC 12.3 K/mcL (4.3-11.1) H 10/30/18 04:30 RBC 2.64 M/mcL (3.82-4.97) L 10/30/18 04:30 Hgb 7.2 g/dL (11.5-15.4) L 10/30/18 04:30 Hct 22.8 % (35.3-44.9) L 10/30/18 04:30 MCH 27.3 pg (28.0-33.3) L 10/30/18 04:30 RDW 17.9 % (11.5-14.5) H 10/30/18 04:30 Eosinophils # 0.7 K/mcL (0.0-0.6) H 10/30/18 04:30 ESR 61 mm/hr (0-15) H 10/27/18 08:22 PT 17.2 Seconds (9.4-12.1) H 10/28/18 03:30 APTT 36.9 Seconds (26.0-36.0) H 10/27/18 03:35 Sodium 135 mEq/L (136-145) L 10/30/18 04:30 Chloride 109 mEq/L (98-107) H 10/30/18 04:30 Carbon Dioxide 19 mEq/L (23-29) L 10/30/18 04:30 BUN 57 mg/dL (8-23) H 10/30/18 04:30 Creatinine 1.21 mg/dL (0.60-1.20) H 10/30/18 04:30 Est GFR ( Amer) 54 (> 60) L 10/30/18 04:30 Est GFR (Non-Af Amer) 45 (> 60) L 10/30/18 04:30 BUN/Creatinine Ratio 47 (6-26) H 10/30/18 04:30 Glucose 115 mg/dL (70-105) H 10/30/18 04:30 POC Glucose 142 mg/dL (70-99) H 10/29/18 19:43 Calcium 7.9 mg/dL (8.6-10.3) L 10/30/18 04:30 Direct Bilirubin 0.3 mg/dL (0.0-0.2) H 10/27/18 03:35 AST 149 Units/L (13-39) H 10/27/18 03:35 Alkaline Phosphatase 157 Units/L (34-104) H 10/27/18 03:35 Serum Total Protein 5.3 g/dL (6.4-8.9) L 10/27/18 03:35 Albumin 1.9 g/dL (3.5-5.7) L 10/27/18 03:35 Albumin/Globulin Ratio 0.6 (1.1-2.2) L 10/27/18 03:35 Urine Clarity Turbid (Clear) A 10/27/18 03:48 Urine Blood Moderate (Negative) H 10/27/18 03:48 Urine Bilirubin Small (Negative) H 10/27/18 03:48 Ur Leukocyte Esterase Large (Negative) H 10/27/18 03:48 Urine Microscopic WBC TNTC per hpf (0-3) H 10/27/18 03:48 Ur Squamous Epith Cells Many per lpf (None-Few) H 10/27/18 03:48 Urine Yeast Many per hpf (None Seen) H 10/27/18 03:48 Ur Culture Indicated? NO. (NO) A 10/27/18 03:48 Vancomycin Trough 17 mcg/mL (5-10) H 10/29/18 09:50 - Head Head exam: Present: atraumatic, normal inspection, normocephalic - Eye Eye exam: Present: PERRL Pupils: Present: PERRL - ENT ENT exam: Present: mucous membranes moist - Respiratory Respiratory exam: Present: decreased breath sounds - Expanded Respiratory Exam Location: decreased breath sounds: Left, Right, Lower - Cardiovascular Cardiovascular exam: Present: RRR, +S1, +S2 - GI/Abdominal GI/Abdominal exam: Present: distended, normal bowel sounds, tenderness - Rectal Rectal exam: Present: hemorrhoids, tenderness - Extremities Exam Extremities exam: Present: pedal edema (trace) - Neurological Exam Neurological exam: Present: alert, oriented X3 - Psychiatric Psychiatric exam: Present: normal affect - Skin Skin exam: Present: warm (Sacral wound to wound vac) Palliative Quality Palliative Quality: Screen for Code Status: Yes, Screen for Goals of Care: Yes, Screen for Pain: Yes, If Pain Regimen Started, Initiate Bowel Regimen: Yes, Screen for Nausea/Vomitting: Yes Code Status: 10/27/18 08:39 Resuscitation Status: Active [RES] Routine Comment: Resuscitation Status: DNR-Comfort Care-Arrest - Labs CBC & Chem 7: 10/30/18 04:30 10/30/18 04:30 Labs: Laboratory Results - last 24 hr 10/28/18 10/29/18 10/29/18 20:17 08:11 11:02 WBC RBC Hgb Hct MCV MCH MCHC RDW Plt Count MPV Immature Gran % Seg Neutrophils % Lymphocytes % Monocytes % Eosinophils % Basophils % Neutrophils # Lymphocytes # Monocytes # Eosinophils # Basophils # Sodium Potassium Chloride Carbon Dioxide BUN Creatinine Est GFR ( Amer) Est GFR (Non-Af Amer) BUN/Creatinine Ratio Glucose POC Glucose 207 H 197 H 174 H Calculated Osmolality Calcium Phosphorus Magnesium Stool Occult Blood 10/29/18 10/29/18 10/30/18 16:30 19:43 04:30 WBC 12.3 H RBC 2.64 L Hgb 7.2 L Hct 22.8 L MCV 86.4 MCH 27.3 L MCHC 31.6 RDW 17.9 H Plt Count 230 MPV 11.6 Immature Gran % 0.3 Seg Neutrophils % 69.5 Lymphocytes % 15.4 Monocytes % 8.3 Eosinophils % 5.8 Basophils % 0.7 Neutrophils # 8.5 Lymphocytes # 1.9 Monocytes # 1.0 Eosinophils # 0.7 H Basophils # 0.1 Sodium Potassium Chloride Carbon Dioxide BUN Creatinine Est GFR ( Amer) Est GFR (Non-Af Amer) BUN/Creatinine Ratio Glucose POC Glucose 132 H 142 H Calculated Osmolality Calcium Phosphorus Magnesium Stool Occult Blood 10/30/18 10/30/18 04:30 10:46 WBC RBC Hgb Hct MCV MCH MCHC RDW Plt Count MPV Immature Gran % Seg Neutrophils % Lymphocytes % Monocytes % Eosinophils % Basophils % Neutrophils # Lymphocytes # Monocytes # Eosinophils # Basophils # Sodium 135 L Potassium 3.7 Chloride 109 H Carbon Dioxide 19 L BUN 57 H Creatinine 1.21 H Est GFR ( Amer) 54 L Est GFR (Non-Af Amer) 45 L BUN/Creatinine Ratio 47 H Glucose 115 H POC Glucose Calculated Osmolality 297 Calcium 7.9 L Phosphorus 4.1 Magnesium 1.8 Stool Occult Blood Negative - ABG Interpretation ABG results: PT/INR, D-dimer PT 17.2 Seconds (9.4-12.1) H 10/28/18 03:30 Consult Discharge Plan - Plan Referrals: Lang Jarvis DO [Primary Care Provider] -
--- NOTE | 2018-10-30 11:40 | Internal Med Progress Note ---
Hospitalist Progress Note - Encounter Date of Encounter: 10/30/18 Time of Encounter: 11:35 - Subjective Interval History: I have seen and evaluated the patient at bedside. patient reports pain on both heels. denies shortness of breath or chest pain. - Exam Vitals: Temp Pulse Resp BP Pulse Ox 98.4 F 58 18 118/60 95 10/30/18 07:18 10/30/18 07:18 10/30/18 07:19 10/30/18 07:18 10/30/18 08:38 Exam: Vitals: Reviewed. General: Alert and oriented x3. In mild distress due to pain on both heels Cardiovascular: RRR, normal S1 & S2, no rubs, murmurs or gallops. Lungs: CTA b/l, no wheezes or crackles. Abdomen: Obese, soft, non-tender, no rigidity. NABS in all 4 quadrants Extremities: stage IV sacral decubitus ulcer, decibitus ulcer on the right heel. 2+ edema in the lower extr b/l. Neurological: Normal cognition Rest of the physical exam is non contributory - Assessment and Plan (1) Sepsis Current Visit: No Status: Acute Assessment and Plan: overall septic picture improving/resolved. patient stopped spiking fever, BP stable and WBC trending down. Wound culture growing gram positive cocci pending sensitivity and specificity on set of blood culture: growing gram positive rods repeat blood culture: no growth Patient on ertapenem and vancomycin per ID recommendations (2) Paroxysmal a-fib Current Visit: No Status: Chronic Assessment and Plan: Rate controlled on amiodarone and metoprolol On aspirin for secondary stroke prevention. (3) OLIVER (obstructive sleep apnea) Current Visit: No Status: Chronic Assessment and Plan: continue nocturnal bipap (4) Morbidly obese Current Visit: No Status: Chronic (5) Acute renal failure superimposed on stage 3 chronic kidney disease Current Visit: Yes Status: Acute Assessment and Plan: kidney function at baseline. continue nephro protective strategies. (6) Sacral decubitus ulcer, stage IV Current Visit: Yes Status: Chronic Assessment and Plan: wound care per surgery and wound care team. (7) Chronic anemia Current Visit: Yes Status: Chronic Assessment and Plan: H&H tending down but stable. FOBT negative. type and screen will consider transfusing 1 unit of PRBC if Hb <7 or hct <23 or patient becomes symptomatic repeat H&H at 5pm. Continue ferrous sulfate 325 by mouth daily. (8) HTN (hypertension) Current Visit: No Status: Chronic Assessment and Plan: Blood pressure is controlled on metoprolol and furosemide. (9) CAD (coronary artery disease) Current Visit: No Status: Chronic Assessment and Plan: On aspirin 81 mg by mouth daily. (10) CHF (congestive heart failure) Current Visit: No Status: Chronic Assessment and Plan: Patient not on acute exacerbation. Continue strict intake and output. We will increase furosemide to 40 mg IV daily. (11) COPD (chronic obstructive pulmonary disease) Current Visit: No Status: Chronic Assessment and Plan: Chest is clear to auscultation. Continue bronchodilators when necessary, and Symbicort. (12) DM (diabetes mellitus), type 2 Current Visit: No Status: Chronic Assessment and Plan: Blood sugar controlled on Levemir 10 units twice a day plus lispro sliding scale low-dose ROSALIO. Carbs controlled diet. (13) Cirrhosis Current Visit: No Status: Chronic (14) Bacteremia Current Visit: Yes Status: Acute Assessment and Plan: Plan of care as per problem #1. DVT Prophylaxis: On heparin subcutaneous. - Summary of Assessment and Plan Summary of Assessment and Plan: Patient to remain in the hospital due to resolving sepsis. wound culture: pending sensitivity and specificity - Time Spent with Patient Total time spent is greater than 50% in coordination of care (as documented) at patient's floor/unit and/or counseling patient: Greater than 35 minutes (40) Plan of Care Discussed with: patient (and the nurse) Internal Medicine: Result - Labs CBC & Chem 7: 10/30/18 04:30 10/30/18 04:30 Labs: Short CBC 10/30/18 Range/Units 04:30 WBC 12.3 H (4.3-11.1) K/mcL Hgb 7.2 L (11.5-15.4) g/dL Hct 22.8 L (35.3-44.9) % Plt Count 230 (140-400) K/mcL Neutrophils # 8.5 (1.6-8.9) K/mcL BMP 10/30/18 04:30 Sodium 135 L Potassium 3.7 Chloride 109 H Carbon Dioxide 19 L BUN 57 H Creatinine 1.21 H Glucose 115 H Calcium 7.9 L - ABG Interpretation ABG results: PT/INR, D-dimer PT 17.2 Seconds (9.4-12.1) H 10/28/18 03:30 Consult Discharge Plan - Plan Referrals: Lang Jarvis DO [Primary Care Provider] - (1) Sepsis Qualifiers: Sepsis type: sepsis due to unspecified organism Qualified Code(s): A41.9 - Sepsis, unspecified organism (5) Acute renal failure superimposed on stage 3 chronic kidney disease Qualifiers: Acute renal failure type: unspecified Qualified Code(s): N17.9 - Acute kidney failure, unspecified; N18.3 - Chronic kidney disease, stage 3 (moderate) (8) HTN (hypertension) Qualifiers: Hypertension type: essential hypertension Qualified Code(s): I10 - Essential (primary) hypertension (9) CAD (coronary artery disease) Qualifiers: Coronary Disease-Associated Artery/Lesion type: [place] artery [place] vs. transplanted heart: [place] heart Associated angina: without angina Qualified Code(s): I25.10 - Atherosclerotic heart disease of [place] coronary artery without angina pectoris (11) COPD (chronic obstructive pulmonary disease) Qualifiers: COPD type: unspecified COPD Qualified Code(s): J44.9 - Chronic obstructive pulmonary disease, unspecified (12) DM (diabetes mellitus), type 2 Qualifiers: Diabetes mellitus superintendent marine oil terminal insulin use: with senior living use Diabetes mellitus complication status: with kidney complications Diabetes mellitus complication detail: with chronic kidney disease Chronic kidney disease stage: stage 3 (moderate) Qualified Code(s): E11.22 - Type 2 diabetes mellitus with diabetic chronic kidney disease; N18.3 - Chronic kidney disease, stage 3 (moderate); Z79.4 - senior living (current) use of insulin (13) Cirrhosis Qualifiers: Hepatic cirrhosis type: other cirrhosis Qualified Code(s): K74.69 - Other cirrhosis of liver
[2018-10-30] MEDS: Metoprolol XL (24 HR) Succ 25 MG TAB.ER.24H PO SCH (17:19)
[2018-10-30 17:39] LABS: Basophils # 0.1 K/mcL (0.0-0.2); Basophils % 0.7 %; Eosinophils # 0.7 K/mcL (0.0-0.6); Eosinophils % 6.9 %; Hematocrit 23.9 % (35.3-44.9); Hemoglobin 7.7 g/dL (11.5-15.4); Immature Granulocytes % 0.3 % (0-4); Lymphocytes # 1.5 K/mcL (0.6-4.6); Lymphocytes % 14.3 %; Mean Corpuscular HGB Conc 32.2 g/dL (31.6-35.5); Mean Corpuscular Hemoglobin 27.9 pg (28.0-33.3); Mean Corpuscular Volume 86.6 fL (83.0-100.0); Mean Platelet Volume 11.7 fL (9.4-12.4); Monocytes # 0.9 K/mcL (0.0-1.3); Monocytes % 8.2 %; Neutrophils # 7.5 K/mcL (1.6-8.9); Platelet Count 238 K/mcL (140-400); Red Blood Count 2.76 M/mcL (3.82-4.97); Segmented Neutrophils % 69.6 %
[2018-10-30] MEDS: Leptospermum Honey Gel 44 ML TUBE TP SCH (21:14)
[2018-10-31] MEDS: *HR* Heparin 5,000 UNIT/ML VIAL SQ SCH ×2 (05:21→17:56)
[2018-10-31 05:38] LABS: Basophils # 0.1 K/mcL (0.0-0.2); Basophils % 0.8 %; Eosinophils # 0.9 K/mcL (0.0-0.6); Eosinophils % 8.1 %; Hematocrit 23.9 % (35.3-44.9); Hemoglobin 7.6 g/dL (11.5-15.4); Immature Granulocytes % 0.3 % (0-4); Lymphocytes # 1.9 K/mcL (0.6-4.6); Lymphocytes % 18.2 %; Mean Corpuscular HGB Conc 31.8 g/dL (31.6-35.5); Mean Corpuscular Hemoglobin 27.5 pg (28.0-33.3); Mean Corpuscular Volume 86.6 fL (83.0-100.0); Mean Platelet Volume 11.5 fL (9.4-12.4); Monocytes # 0.9 K/mcL (0.0-1.3); Monocytes % 8.2 %; Neutrophils # 6.9 K/mcL (1.6-8.9); Platelet Count 244 K/mcL (140-400); Red Blood Count 2.76 M/mcL (3.82-4.97); Segmented Neutrophils % 64.4 %
[2018-10-31 05:57] LABS: Calcium 8.2 mg/dL (8.6-10.3); Magnesium 1.9 mg/dL (1.6-2.6); Phosphorous 4.6 mg/dL (2.7-4.5); Potassium 3.9 mEq/L (3.5-5.1)
[2018-10-31] MEDS: Insulin LISPRO 300 UNITS/3 ML VIAL SQ SCH ×3 (07:17→17:13)
[2018-10-31] MEDS ORDERED: Furosemide 40 MG/4 ML VIAL IVP SCH ×2 (09:00)
--- NOTE | 2018-10-31 09:30 | Event Note ---
Date of Encounter: 10/31/18 Time of Encounter: 09:00 Patient eating breakfast, denies complaints. Leukocytosis improved. Fevers with downward trend. Plan for ECF [facility] upon discharge. Son was called and updated yesterday. Palliative not currently managing symptoms and will sign off. Please call if needed.
[2018-10-31] MEDS: Lactulose Oral Soln 20 GM/30 ML UDC PO SCH ×2 (09:40→20:55)
[2018-10-31] MEDS: Loratadine 10 MG TABLET PO SCH (09:41)
[2018-10-31] MEDS: Pregabalin 75 MG CAPSULE PO SCH ×3 (09:41→20:55)
[2018-10-31] MEDS: Aspirin Enteric Coated 81 MG Tablet PO SCH (09:41)
[2018-10-31] MEDS: Cholecalciferol (D-3) 1,000 UNIT TABLET PO SCH (09:41)
[2018-10-31] MEDS: *HR* Amiodarone 200 MG TABLET PO SCH (09:42)
[2018-10-31] MEDS: Multivit/Ca/Min/Fe/FA 1 TAB TABLET PO SCH (09:42)
[2018-10-31] MEDS: Ertapenem 1,000 MG in 0.9 % Sodium Chloride Mini Bag 100 ML IVPB SCH (09:42)
[2018-10-31] MEDS: Insulin DETEMIR 100 UNIT/ML X5UNITS SQ SCH ×2 (09:48→20:55)
--- NOTE | 2018-10-31 09:57 | Infectious Disease Progress No ---
Date of Encounter: 10/31/18 Time of Encounter: 09:56 - Assessment and Plan (1) Sepsis Current Visit: No Status: Acute Severe sepsis: The patient had 2 sepsis criteria plus acute kidney injury on admission. Likely secondary to decubitus ulcer infection vs. UTI vs. other. White blood cell count remains elevated. She was febrile with a MAXIMUM TEMPERATURE of 101.3 overnight. The cultures drawn sets are positive 1/4 sets for GPR. The one that is positive appears to have been drawn by an RN, which makes me suspicious that it was drawn from the PICC line. Recommendations: Repeat blood cultures x 2. Await final ID and sensitivities on repeat blood cultures. Wound care per surgery team recommendations. Aggressive offloading and wound care per nursing. Continue Ertapenem 1 gram IV daily. Continue vancomycin IV. Pharmacy to dose. Goal trough approximately 15. Duration of treatment depends on the clinical picture. The patient was due to c omplete 6 weeks of IV Ertapenem on 11/10/18, but will likely need to extend for an additional two weeks through 11/24/18. Will likely need a total of 6 weeks of IV Vancomycin as well. Monitor renal function for drug toxicity and dose adjust antibiotics. Contact precautions per policy. Discontinue droplet precautions. office services associate to assist with discharge planning. Qualifiers: Qualified Code(s): A41.9 - Sepsis, unspecified organism (2) Bacteremia Current Visit: Yes Status: Acute Causative organism: GPR. Blood culture drawn 10/27/18 1/4 sets is positive. It appears the one that is positive was drawn by a nurse which makes me highly suspicious that this was the one drawn from the PICC line. Contaminant vs. true infection. Patient clinically improved. May consider removing PICC line and replacing. Currently on Vanc and Ertapenem. (3) Decubitus ulcer, infected Current Visit: Yes Status: Acute Location: Sacral wound. Causative organism: E. faecalis, AmpS. Previous cultures positive for P. mirabilis and E. coli ESBL per [facility] bone cultures. The patient originally told her she was diagnosed with osteomyelitis at [place], but further review of the records indicates that she was diagnosed with osteomyelitis of the sacrum in September 2018 at [facility]. The cultures indicate Proteus and ESBL Escherichia coli from the sacrum bone, as well as anaerobes. She was discharged back to the [facility] with plans to complete a 6 week course (through 11/10/18) and instructions to follow up with [facility] infectious disease. CT of the abdomen and pelvis showed cellulitis with gas and an abscess could not be excluded. Concerned that the patient has chronically loose stools from her lactulose that is likely contaminating the wound constantly since she is unable to get out of bed to defecate. ESR and CRP elevated. General surgery consulted. No surgical intervention warranted at this time. Currently on Vanc and Ertapenem. Qualifiers: Qualified Code(s): L89.94 - Pressure ulcer of unspecified site, stage 4; L08.9 - Local infection of the skin and subcutaneous tissue, unspecified (4) Cellulitis Current Visit: No Status: Chronic Location: Sacrum. Likely secondary to sacral wound infection. Causative organism: E. faecalis. Currently on IV Vanc and Ertapenem. Qualifiers: Qualified Code(s): L03.119 - Cellulitis of unspecified part of limb (5) Diabetes mellitus Current Visit: No Status: Chronic Recommend strict glucose control. 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 Cipro-anaphylaxis Biaxin-hives Levaquin-anaphylaxis Bactrim-hives Cefaclor-anaphylaxis (8) Morbidly obese Current Visit: No Status: Chronic (9) BRADFORD (nonalcoholic steatohepatitis) Current Visit: No Status: Chronic The patient states she follows with a creative services manager up in [place]. MELD score 17. (10) OLIVER (obstructive sleep apnea) Current Visit: No Status: Chronic (11) PAD (peripheral artery disease) Current Visit: No Status: Chronic (12) Pulmonary hypertension Current Visit: No Status: Chronic (13) Acute kidney injury superimposed on chronic kidney disease Current Visit: No Status: Resolved Likely secondary to sepsis and poor by mouth intake. Improved. Continue to trend. Avoid nephrotoxins and dose adjust antibiotics. (14) History of DVT of lower extremity Current Visit: No Status: Resolved (15) Atrial fibrillation Current Visit: No Status: Chronic Qualifiers: Qualified Code(s): I48.2 - Chronic atrial fibrillation (16) COPD (chronic obstructive pulmonary disease) Current Visit: No Status: Chronic Qualifiers: Qualified Code(s): J44.9 - Chronic obstructive pulmonary disease, unspecified - Subjective Interval history: Patient seen and examined. No acute events noted overnight. Patient states that she feels okay. Denies fevers, chills, or rigors. Denies chest pain. States her breathing is at baseline and she denies a cough. Denies nausea, vomiting or diarrhea. Denies abdominal pain or urinary complaints. Denies any oral thrush or new skin lesions. Complains of mild pain in her feet and at the site of her sacral wound. Infect Dis PN-Objective Data - Labs CBC & Chem 7: 11/01/18 04:12 11/01/18 04:00 Labs: Laboratory Results - last 24 hr 10/30/18 10/30/18 10/30/18 07:25 10:46 11:43 WBC RBC Hgb Hct MCV MCH MCHC RDW Plt Count MPV Immature Gran % Seg Neutrophils % Lymphocytes % Monocytes % Eosinophils % Basophils % Neutrophils # Lymphocytes # Monocytes # Eosinophils # Basophils # Sodium Potassium Chloride Carbon Dioxide BUN Creatinine Est GFR ( Amer) Est GFR (Non-Af Amer) BUN/Creatinine Ratio Glucose POC Glucose 112 H 116 H Calculated Osmolality Calcium Phosphorus Magnesium Stool Occult Blood Negative Blood Type Antibody Screen 10/30/18 10/30/18 10/30/18 17:14 17:22 17:22 WBC 10.8 RBC 2.76 L Hgb 7.7 L Hct 23.9 L MCV 86.6 MCH 27.9 L MCHC 32.2 RDW 18.0 H Plt Count 238 MPV 11.7 Immature Gran % 0.3 Seg Neutrophils % 69.6 Lymphocytes % 14.3 Monocytes % 8.2 Eosinophils % 6.9 Basophils % 0.7 Neutrophils # 7.5 Lymphocytes # 1.5 Monocytes # 0.9 Eosinophils # 0.7 H Basophils # 0.1 Sodium Potassium Chloride Carbon Dioxide BUN Creatinine Est GFR ( Amer) Est GFR (Non-Af Amer) BUN/Creatinine Ratio Glucose POC Glucose 138 H Calculated Osmolality Calcium Phosphorus Magnesium Stool Occult Blood Blood Type O POSITIVE Antibody Screen NEGATIVE 10/30/18 10/31/18 10/31/18 19:17 05:17 05:17 WBC 10.6 RBC 2.76 L Hgb 7.6 L Hct 23.9 L MCV 86.6 MCH 27.5 L MCHC 31.8 RDW 18.0 H Plt Count 244 MPV 11.5 Immature Gran % 0.3 Seg Neutrophils % 64.4 Lymphocytes % 18.2 Monocytes % 8.2 Eosinophils % 8.1 Basophils % 0.8 Neutrophils # 6.9 Lymphocytes # 1.9 Monocytes # 0.9 Eosinophils # 0.9 H Basophils # 0.1 Sodium 135 L Potassium 3.9 Chloride 108 H Carbon Dioxide 21 L BUN 62 H Creatinine 1.53 H Est GFR ( Amer) 42 L Est GFR (Non-Af Amer) 34 L BUN/Creatinine Ratio 41 H Glucose 100 POC Glucose 119 H Calculated Osmolality 298 Calcium 8.2 L Phosphorus 4.6 H Magnesium 1.9 Stool Occult Blood Blood Type Antibody Screen 10/31/18 06:39 WBC RBC Hgb Hct MCV MCH MCHC RDW Plt Count MPV Immature Gran % Seg Neutrophils % Lymphocytes % Monocytes % Eosinophils % Basophils % Neutrophils # Lymphocytes # Monocytes # Eosinophils # Basophils # Sodium Potassium Chloride Carbon Dioxide BUN Creatinine Est GFR ( Amer) Est GFR (Non-Af Amer) BUN/Creatinine Ratio Glucose POC Glucose 101 H Calculated Osmolality Calcium Phosphorus Magnesium Stool Occult Blood Blood Type Antibody Screen Cultures: Cultures 10/27/18 11:38 Wound Culture - Final Other-Specify in Comments Enterococcus faecalis 10/27/18 11:38 Anaerobic Culture - Preliminary Other-Specify in Comments At this time, no anaerobic growth is present. The culture will be finalized after 5 days of incubation. 10/27/18 03:35 Blood Culture - Preliminary Peripheral Venipuncture Gram Positive Rods 10/27/18 11:25 Blood Culture - Preliminary Peripheral Venipuncture Culture is incubating and being continuously monitored for growth. Final report to follow. 10/27/18 08:22 Blood Culture - Preliminary Peripheral Venipuncture Culture is incubating and being continuously monitored for growth. Final report to follow. 10/27/18 08:15 Blood Culture - Preliminary Peripheral Venipuncture Culture is incubating and being continuously monitored for growth. Final report to follow. 10/27/18 03:52 Influenza Types A,B Antigen - Final Nasopharyngeal Serology 10/30/18 10/28/18 10/27/18 Range/Units 10:46 11:00 20:10 Urine Color (Yellow) Urine Clarity (Clear) Urine pH (5.0-8.0) pH Units Ur Specific [place] (1.010-1.025) Urine Protein (Neg-Trace) mg/dL Urine Glucose (UA) (Normal) mg/dL Urine Ketones (Negative) mg/dL Urine Blood (Negative) Urine Nitrite (Negative) Urine Bilirubin (Negative) Urine Urobilinogen (Normal) mg/dL Ur Leukocyte Esterase (Negative) Urine Microscopic RBC (0-3) per hpf Urine Microscopic WBC (0-3) per hpf Ur Squamous Epith Cells (None-Few) per lpf Urine Bacteria (None-Few) per hpf Hyaline Casts (None-Few) per lpf Urine Yeast (None Seen) per hpf Ur Culture Indicated? (NO) Nasal Screen MRSA (PCR) Negative (Negative) Stool Occult Blood Negative (Negative) Chlamy pneumoniae PCR Not Detected (Not Detect) Adenovirus (PCR) Not Detected (Not Detect) B. pertussis DNA (PCR) Not Detected (Not Detect) B.parapertussis DNA PCR Not Detected (Not Detect) Coronavirus OC43 (PCR) Not Detected (Not Detect) Coronavirus HKU1 (PCR) Not Detected (Not Detect) Coronavirus 229E (PCR) Not Detected (Not Detect) Coronavirus NL63 (PCR) Not Detected (Not Detect) Human Metapneumovir PCR Not Detected (Not Detect) Influenza A (H1) PCR Not Detected (Not Detect) Influ A (H1N1/09) PCR Not Detected (Not Detect) Influenza A (H3) PCR Not Detected (Not Detect) Influenza A Untype (PCR) Not Detected (Not Detect) Influenza Type B (PCR) Not Detected (Not Detect) M.pneumoniae DNA (PCR) Not Detected (Not Detect) Parainfluenza 1 (PCR) Not Detected (Not Detect) Parainfluenza 2 (PCR) Not Detected (Not Detect) Parainfluenza 3 (PCR) Not Detected (Not Detect) Parainfluenza 4 (PCR) Not Detected (Not Detect) RSV (PCR) Not Detected (Not Detect) Entero/Rhino (PCR) Not Detected (Not Detect) 10/27/18 Range/Units 03:48 Urine Color Dark Yellow (Yellow) Urine Clarity Turbid A (Clear) Urine pH 5.0 (5.0-8.0) pH Units Ur Specific [place] 1.024 (1.010-1.025) Urine Protein Trace (Neg-Trace) mg/dL Urine Glucose (UA) Normal (Normal) mg/dL Urine Ketones Negative (Negative) mg/dL Urine Blood Moderate H (Negative) Urine Nitrite Negative (Negative) Urine Bilirubin Small H (Negative) Urine Urobilinogen Normal (Normal) mg/dL Ur Leukocyte Esterase Large H (Negative) Urine Microscopic RBC 0-3 (0-3) per hpf Urine Microscopic WBC TNTC H (0-3) per hpf Ur Squamous Epith Cells Many H (None-Few) per lpf Urine Bacteria None Seen (None-Few) per hpf Hyaline Casts None Seen (None-Few) per lpf Urine Yeast Many H (None Seen) per hpf Ur Culture Indicated? NO. A (NO) Nasal Screen MRSA (PCR) (Negative) Stool Occult Blood (Negative) Chlamy pneumoniae PCR (Not Detect) Adenovirus (PCR) (Not Detect) B. pertussis DNA (PCR) (Not Detect) B.parapertussis DNA PCR (Not Detect) Coronavirus OC43 (PCR) (Not Detect) Coronavirus HKU1 (PCR) (Not Detect) Coronavirus 229E (PCR) (Not Detect) Coronavirus NL63 (PCR) (Not Detect) Human Metapneumovir PCR (Not Detect) Influenza A (H1) PCR (Not Detect) Influ A (H1N1/09) PCR (Not Detect) Influenza A (H3) PCR (Not Detect) Influenza A Untype (PCR) (Not Detect) Influenza Type B (PCR) (Not Detect) M.pneumoniae DNA (PCR) (Not Detect) Parainfluenza 1 (PCR) (Not Detect) Parainfluenza 2 (PCR) (Not Detect) Parainfluenza 3 (PCR) (Not Detect) Parainfluenza 4 (PCR) (Not Detect) RSV (PCR) (Not Detect) Entero/Rhino (PCR) (Not Detect) Exam - Constitutional Vitals: Temp Pulse Resp BP Pulse Ox 99.0 F 57 18 105/54 95 10/31/18 06:50 10/31/18 06:50 10/31/18 06:50 10/31/18 06:50 10/31/18 06:50 General appearance: cooperative, morbidly obese, no acute distress - Head Head exam: Present: atraumatic, normal inspection, normocephalic - Eye Eye exam: Present: EOMI, normal appearance, PERRL Pupils: Present: normal accommodation - ENT ENT exam: Present: mucous membranes moist - Neck Neck exam: Present: normal inspection - Respiratory Respiratory exam: Present: CTAB. Absent: rales, respiratory distress, rhonchi, wheezes - Cardiovascular Cardiovascular exam: Present: RRR, +S1, +S2 - GI/Abdominal GI/Abdominal exam: Present: distended (obese), normal bowel sounds, soft. Absent: tenderness - Extremities Exam Extremities exam: Present: normal inspection, pedal edema (1+ BLE). Absent: joint swelling, tenderness - Neurological Exam Neurological exam: Present: alert, oriented X3, no focal deficits - Psychiatric Psychiatric exam: Present: normal affect, normal mood - Skin Skin exam: Present: dry, intact, normal color, warm - Additional findings Additional findings: Wound VAC noted to the sacral region without leak. Consult Discharge Plan - Plan Referrals: Lang Jarvis DO [Primary Care Provider] - (Patient will be going to SNF) - Attending Attestation I have personally performed a face to face evaluation on this patient. I have reviewed and agree with the care plan. History and Exam by me shows: Assessment and plan: 1.sepsis 2.osteomyelitis of the decubitus area secondary to sore 3.multiple antibiotic allergies Recommendations: Continue Ertapenem 1 gram IV daily. Continue vancomycin IV. Pharmacy to dose. Goal trough approximately 15. Duration of treatment depends on the clinical picture. The patient was due to complete 6 weeks of IV Ertapenem on 11/10/18, but will likely need to extend for an additional two weeks through 11/24/18. Will likely need a total of 6 weeks of IV Vancomycin as well. Monitor renal function for drug toxicity and dose adjust antibiotics. Contact precautions per policy. Discontinue droplet precautions. office services associate to assist with discharge planning.
[2018-10-31] MEDS: Budesonide/Formoterol 160/4.5 1 PUFF INH IH SCH ×2 (11:18→19:46)
--- NOTE | 2018-10-31 12:08 | Internal Med Progress Note ---
Hospitalist Progress Note - Encounter Date of Encounter: 10/31/18 Time of Encounter: 12:06 - Subjective Interval History: I have seen and evaluated this patient at bedside. she reports doing well today. denies shortness of breath or chest pain - Exam Vitals: Temp Pulse Resp BP Pulse Ox 98.6 F 59 18 102/45 94 10/31/18 10:49 10/31/18 10:49 10/31/18 11:18 10/31/18 10:49 10/31/18 11:18 Exam: Vitals: Reviewed. General: Alert and oriented x3. no distress Cardiovascular: RRR, normal S1 & S2, no rubs, murmurs or gallops. Lungs: CTA b/l, no wheezes or crackles. Abdomen: Obese, soft, non-tender, no rigidity. NABS in all 4 quadrants Extremities: stage IV sacral decubitus ulcer, decibitus ulcer on the right heel. 2+ edema in the lower extr b/l. Neurological: Normal cognition Rest of the physical exam is non contributory - Assessment and Plan (1) Sepsis Current Visit: No Status: Acute Assessment and Plan: resolved. defervescence for >78 hours. WBC back to normal, hemodynamically stable. Plan on ertapenem and vancomycin per ID recommendations patient will need and extended course of IV antibiotics wound culture: enteroccous faecalis blood culture 1 bottle of fist BC: gram positive rods, pending sensitivity and specificity repeat blood culture no growth pending final report. (2) Paroxysmal a-fib Current Visit: No Status: Chronic Assessment and Plan: Rate controlled on metoprolol. On amiodarone. On aspirin 81 mg for secondary stroke prevention. (3) OLIVER (obstructive sleep apnea) Current Visit: No Status: Chronic Assessment and Plan: Nocturnal bipap (4) Morbidly obese Current Visit: No Status: Chronic (5) Acute renal failure superimposed on stage 3 chronic kidney disease Current Visit: Yes Status: Chronic Assessment and Plan: kidney function at baseline. will continue nephro-protective measures (6) Sacral decubitus ulcer, stage IV Current Visit: Yes Status: Chronic Assessment and Plan: with cellulitis. wound vac with minimal drainage. wound care per surgery and wound team recommendations patient on broad spectrum IV antibiotics (7) Chronic anemia Current Visit: Yes Status: Chronic Assessment and Plan: H&H trending down. FOBTs negative. no signs of active bleeding. will continue trending cbc. on ferrous sulfate 325mg/PO daily will transfuse per protocol (8) HTN (hypertension) Current Visit: No Status: Chronic Assessment and Plan: BP controlled, patient on metoprolol and furosemide. (9) CAD (coronary artery disease) Current Visit: No Status: Chronic Assessment and Plan: Continue aspirin 81 mg by mouth daily. (10) CHF (congestive heart failure) Current Visit: No Status: Chronic Assessment and Plan: Not on acute exacerbation. Fluid restriction to 1.5 L a day. Furosemide 20 mg IV daily. Continue strict intake and output. (11) COPD (chronic obstructive pulmonary disease) Current Visit: No Status: Chronic Assessment and Plan: Chest is clear to auscultation. Continue bronchodilators when necessary. On Symbicort. And Singulair. Incentive spirometry (12) DM (diabetes mellitus), type 2 Current Visit: No Status: Chronic Assessment and Plan: Blood sugar is controlled on Levemir 10 units twice a day plus lispro low-dose sliding scale before meals. (13) Cirrhosis Current Visit: No Status: Chronic Assessment and Plan: Outpatient follow-up (14) Bacteremia Current Visit: Yes Status: Acute Assessment and Plan: plan of care as per problem #1 (15) Hypothyroidism Current Visit: Yes Status: Chronic Assessment and Plan: on levothyroxine 75mcg/po daily DVT Prophylaxis: On heparin subQ. - Summary of Assessment and Plan Summary of Assessment and Plan: Patient to remain in the hospital due to resolving sepsis. pending blood culture sensitivity and specificity. potential discharge tomorrow - Time Spent with Patient Total time spent is greater than 50% in coordination of care (as documented) at patient's floor/unit and/or counseling patient: Greater than 35 minutes (40) Plan of Care Discussed with: patient (and the nurse) Internal Medicine: Result - Labs CBC & Chem 7: 10/31/18 05:17 10/31/18 05:17 Labs: Short CBC 10/30/18 10/31/18 Range/Units 17:22 05:17 WBC 10.8 10.6 (4.3-11.1) K/mcL Hgb 7.7 L 7.6 L (11.5-15.4) g/dL Hct 23.9 L 23.9 L (35.3-44.9) % Plt Count 238 244 (140-400) K/mcL Neutrophils # 7.5 6.9 (1.6-8.9) K/mcL BMP 10/31/18 05:17 Sodium 135 L Potassium 3.9 Chloride 108 H Carbon Dioxide 21 L BUN 62 H Creatinine 1.53 H Glucose 100 Calcium 8.2 L - ABG Interpretation ABG results: PT/INR, D-dimer PT 17.2 Seconds (9.4-12.1) H 10/28/18 03:30 Consult Discharge Plan - Plan Referrals: Lang Jarvis DO [Primary Care Provider] - (Patient will be going to SNF) (1) Sepsis Qualifiers: Sepsis type: sepsis due to unspecified organism Qualified Code(s): A41.9 - Sepsis, unspecified organism (5) Acute renal failure superimposed on stage 3 chronic kidney disease Qualifiers: Acute renal failure type: unspecified Qualified Code(s): N17.9 - Acute kidney failure, unspecified; N18.3 - Chronic kidney disease, stage 3 (moderate) (8) HTN (hypertension) Qualifiers: Hypertension type: essential hypertension Qualified Code(s): I10 - Essential (primary) hypertension (9) CAD (coronary artery disease) Qualifiers: Coronary Disease-Associated Artery/Lesion type: [place] artery [place] vs. 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 Diabetes mellitus complication status: with kidney complications Diabetes mellitus complication detail: with chronic kidney disease Chronic kidney disease stage: stage 3 (moderate) Qualified Code(s): E11.22 - Type 2 diabetes mellitus with diabetic chronic kidney disease; N18.3 - Chronic kidney disease, stage 3 (moderate); Z79.4 - nursing home (current) use of insulin (13) Cirrhosis Qualifiers: Hepatic cirrhosis type: other cirrhosis Qualified Code(s): K74.69 - Other cirrhosis of liver (15) Hypothyroidism Qualifiers: Hypothyroidism type: unspecified Qualified Code(s): E03.9 - Hypothyroidism, unspecified
[2018-10-31] MEDS: Metoprolol XL (24 HR) Succ 25 MG TAB.ER.24H PO SCH (17:13)
[2018-10-31] MEDS: Leptospermum Honey Gel 44 ML TUBE TP SCH (22:50)
[2018-11-01 04:37] LABS: Basophils # 0.1 K/mcL (0.0-0.2); Eosinophils # 0.7 K/mcL (0.0-0.6); Eosinophils % 7.7 %; Hematocrit 22.2 % (35.3-44.9); Immature Granulocytes % 0.6 % (0-4); Immature Platelets 3.5 % (1.1-6.1); Lymphocytes # 2.1 K/mcL (0.6-4.6); Mean Corpuscular HGB Conc 31.5 g/dL (31.6-35.5); Mean Corpuscular Hemoglobin 27.2 pg (28.0-33.3); Mean Corpuscular Volume 86.4 fL (83.0-100.0); Mean Platelet Volume 11.6 fL (9.4-12.4); Monocytes % 10.1 %; Neutrophils # 5.6 K/mcL (1.6-8.9); Platelet Count 229 K/mcL (140-400); Red Blood Count 2.57 M/mcL (3.82-4.97); Segmented Neutrophils % 58.6 %
[2018-11-01 04:53] LABS: Calcium 8.1 mg/dL (8.6-10.3); Phosphorous 4.5 mg/dL (2.7-4.5); Potassium 3.9 mEq/L (3.5-5.1)
[2018-11-01] MEDS: *HR* Heparin 5,000 UNIT/ML VIAL SQ SCH (05:35)
[2018-11-01] MEDS: Budesonide/Formoterol 160/4.5 1 PUFF INH IH SCH ×2 (07:24→22:46)
[2018-11-01] MEDS: Insulin LISPRO 300 UNITS/3 ML VIAL SQ SCH ×3 (07:52→18:09)
[2018-11-01] MEDS: Aspirin Enteric Coated 81 MG Tablet PO SCH (07:55)
[2018-11-01] MEDS: Pregabalin 75 MG CAPSULE PO SCH (07:56)
[2018-11-01] MEDS: Multivit/Ca/Min/Fe/FA 1 TAB TABLET PO SCH (07:56)
[2018-11-01] MEDS: Cholecalciferol (D-3) 1,000 UNIT TABLET PO SCH (07:56)
[2018-11-01] MEDS: *HR* Amiodarone 200 MG TABLET PO SCH (07:56)
[2018-11-01] MEDS: Loratadine 10 MG TABLET PO SCH (07:56)
[2018-11-01] MEDS: Lactulose Oral Soln 20 GM/30 ML UDC PO SCH ×2 (07:56→20:59)
[2018-11-01] MEDS: Ertapenem 1,000 MG in 0.9 % Sodium Chloride Mini Bag 100 ML IVPB SCH (07:57)
[2018-11-01] MEDS: Insulin DETEMIR 100 UNIT/ML X5UNITS SQ SCH ×2 (08:27→21:00)
[2018-11-01] MEDS: Acetaminophen 325 MG TABLET PO PRN (09:30)
--- NOTE | 2018-11-01 09:46 | Infectious Disease Progress No ---
Date of Encounter: 11/01/18 Time of Encounter: 09:15 - Assessment and Plan (1) Sepsis Current Visit: Yes Status: Acute Severe sepsis: The patient had 2 sepsis criteria plus acute kidney injury on admission. Likely secondary to decubitus ulcer infection vs. UTI vs. other. White blood cell count normal. Afebrile overnight. The cultures drawn sets are positive 1/4 sets for GPR x 2. The one that is positive appears to have been drawn by an RN, which makes me suspicious that it was drawn from the PICC line. Repeat blood cultures drawn 10/31/18 (peripherally) are pending x 2 sets. Recommendations: Await final ID and sensitivities on repeat blood cultures. Await repeat blood cultures. Wound care per surgery team recommendations. Aggressive offloading and wound care per nursing. Continue Ertapenem 1 gram IV daily. Continue vancomycin IV. Pharmacy to dose. Goal trough approximately 15. Duration of treatment depends on the clinical picture. The patient was due to complete 6 weeks of IV Ertapenem on 11/10/18, but will likely need to extend for an additional two weeks through 11/24/18. Will likely need a total of 6 weeks of IV Vancomycin as well. Monitor renal function for drug toxicity and dose adjust antibiotics. Contact precautions per policy. Discontinue droplet precautions. director of rehabilitative services to assist with discharge planning. Qualifiers: Sepsis type: sepsis due to unspecified organism Qualified Code(s): A41.9 - Sepsis, unspecified organism (2) Bacteremia Current Visit: Yes Status: Resolved Causative organism: GPR. Blood culture drawn 10/27/18 1/4 sets is positive. It appears the one that is positive was drawn by a nurse which makes me highly suspicious that this was the one drawn from the PICC line. Contaminant vs. true infection--> most likely a contaminant. Patient clinically improved. May consider removing PICC line and replacing, but will await final ID. Currently on Vanc and Ertapenem. (3) Decubitus ulcer, infected Current Visit: Yes Status: Acute Location: Sacral wound. Causative organism: E. faecalis, AmpS. Previous cultures positive for P. mirabilis and E. coli ESBL per [facility] bone cultures. The patient originally told her she was diagnosed with osteomyelitis at [place], but further review of the records indicates that she was diagnosed with osteomyelitis of the sacrum in September 2018 at [facility]. The cultures indicate Proteus and ESBL Escherichia coli from the sacrum bone, as well as anaerobes. She was discharged back to the [facility] with plans to complete a 6 week course (through 11/10/18) and instructions to follow up with [facility] infectious disease. CT of the abdomen and pelvis showed cellulitis with gas and an abscess could not be excluded. Concerned that the patient has chronically loose stools from her lactulose that is likely contaminating the wound constantly since she is unable to get out of bed to defecate. ESR and CRP elevated. General surgery consulted. No surgical intervention warranted at this time. Currently on Vanc and Ertapenem. Qualifiers: Pressure injury stage: stage 4 Qualified Code(s): L89.94 - Pressure ulcer of unspecified site, stage 4; L08.9 - Local infection of the skin and subcutaneous tissue, unspecified (4) Cellulitis Current Visit: No Status: Chronic Location: Sacrum. Likely secondary to sacral wound infection. Causative organism: E. faecalis. Currently on IV Vanc and Ertapenem. Qualifiers: Site of cellulitis: extremity Site of cellulitis of extremity: lower extremity Laterality: unspecified laterality Qualified Code(s): L03.119 - Cellulitis of unspecified part of limb (5) Diabetes mellitus Current Visit: No Status: Chronic Recommend strict glucose control. Qualifiers: Diabetes mellitus type: type 2 Diabetes mellitus long term care social worker insulin use: without intermediate use Diabetes mellitus complication status: with kidney complications Diabetes mellitus complication detail: with nephropathy Qualified Code(s): E11.21 - Type 2 diabetes mellitus with diabetic nephropathy (6) HLD (hyperlipidemia) Current Visit: No Status: Chronic Qualifiers: Hyperlipidemia type: pure hypercholesterolemia Qualified Code(s): E78.00 - Pure hypercholesterolemia, unspecified; E78.0 - Pure hypercholesterolemia (7) History of allergy to multiple drugs Current Visit: No Status: Chronic The patient has multiple allergies which compensates and limits our ability in selecting antibiotic therapy. Cipro-anaphylaxis Biaxin-hives Levaquin-anaphylaxis Bactrim-hives Cefaclor-anaphylaxis (8) Morbidly obese Current Visit: Yes Status: Chronic (9) BRADFORD (nonalcoholic steatohepatitis) Current Visit: No Status: Chronic The patient states she follows with a submarine diver up in [place]. MELD score 17. (10) OLIVER (obstructive sleep apnea) Current Visit: Yes Status: Chronic (11) PAD (peripheral artery disease) Current Visit: No Status: Chronic (12) Pulmonary hypertension Current Visit: No Status: Chronic (13) Acute kidney injury superimposed on chronic kidney disease Current Visit: No Status: Resolved Likely secondary to sepsis and poor by mouth intake. Improved. Continue to trend. Avoid nephrotoxins and dose adjust antibiotics. (14) History of DVT of lower extremity Current Visit: No Status: Resolved (15) Atrial fibrillation Current Visit: No Status: Chronic Qualifiers: Atrial fibrillation type: chronic Qualified Code(s): I48.2 - Chronic atrial fibrillation (16) COPD (chronic obstructive pulmonary disease) Current Visit: No Status: Chronic Qualifiers: COPD type: unspecified COPD Qualified Code(s): J44.9 - Chronic obstructive pulmonary disease, unspecified - Subjective Interval history: Patient seen and examined. No acute events noted overnight. Patient states that she feels okay. Denies fevers, chills, or rigors. Denies chest pain. States her breathing is at baseline and she denies a cough. Denies nausea, vomiting or diarrhea. Denies abdominal pain or urinary complaints. Denies any oral thrush or new skin lesions. Complains of mild generalized pain and is requesting Tylenol. Infect Dis PN-Objective Data - Labs CBC & Chem 7: 11/03/18 04:22 11/03/18 04:22 Labs: Laboratory Results - last 24 hr 10/30/18 10/31/18 10/31/18 17:22 10:48 15:44 WBC RBC Hgb Hct MCV MCH MCHC RDW Plt Count MPV Immature Gran % Seg Neutrophils % Lymphocytes % Monocytes % Eosinophils % Basophils % Neutrophils # Lymphocytes # Monocytes # Eosinophils # Basophils # Immature Plt Fraction Sodium Potassium Chloride Carbon Dioxide BUN Creatinine Est GFR ( Amer) Est GFR (Non-Af Amer) BUN/Creatinine Ratio Glucose POC Glucose 128 H 121 H Calculated Osmolality Calcium Phosphorus Magnesium Blood Type O POSITIVE Antibody Screen NEGATIVE Crossmatch See Detail 10/31/18 11/01/18 11/01/18 20:28 04:00 04:12 WBC 9.5 RBC 2.57 L Hgb 7.0 L Hct 22.2 L MCV 86.4 MCH 27.2 L MCHC 31.5 L RDW 18.0 H Plt Count 229 MPV 11.6 Immature Gran % 0.6 Seg Neutrophils % 58.6 Lymphocytes % 22.0 Monocytes % 10.1 Eosinophils % 7.7 Basophils % 1.0 Neutrophils # 5.6 Lymphocytes # 2.1 Monocytes # 1.0 Eosinophils # 0.7 H Basophils # 0.1 Immature Plt Fraction 3.5 Sodium 136 Potassium 3.9 Chloride 109 H Carbon Dioxide 20 L BUN 61 H Creatinine 1.63 H Est GFR ( Amer) 39 L Est GFR (Non-Af Amer) 32 L BUN/Creatinine Ratio 37 H Glucose 88 POC Glucose 147 H Calculated Osmolality 299 Calcium 8.1 L Phosphorus 4.5 Magnesium 2.0 Blood Type Antibody Screen Crossmatch Cultures: Cultures 10/31/18 14:32 Blood Culture - Preliminary Peripheral Venipuncture Culture is incubating and being continuously monitored for growth. Final report to follow. 10/31/18 14:32 Blood Culture - Preliminary Peripheral Venipuncture Culture is incubating and being continuously monitored for growth. Final report to follow. 10/27/18 03:35 Blood Culture - Preliminary Peripheral Venipuncture Gram Positive Rods Gram Positive Rods#2 10/27/18 11:38 Wound Culture - Final Other-Specify in Comments Enterococcus faecalis 10/27/18 11:38 Anaerobic Culture - Preliminary Other-Specify in Comments At this time, no anaerobic growth is present. The culture will be finalized after 5 days of incubation. 10/27/18 11:25 Blood Culture - Preliminary Peripheral Venipuncture Culture is incubating and being continuously monitored for growth. Final report to follow. 10/27/18 08:22 Blood Culture - Preliminary Peripheral Venipuncture Culture is incubating and being continuously monitored for growth. Final report to follow. 10/27/18 08:15 Blood Culture - Preliminary Peripheral Venipuncture Culture is incubating and being continuously monitored for growth. Final report to follow. 10/27/18 03:52 Influenza Types A,B Antigen - Final Nasopharyngeal Serology 10/30/18 10/28/18 10/27/18 Range/Units 10:46 11:00 20:10 Urine Color (Yellow) Urine Clarity (Clear) Urine pH (5.0-8.0) pH Units Ur Specific [place] (1.010-1.025) Urine Protein (Neg-Trace) mg/dL Urine Glucose (UA) (Normal) mg/dL Urine Ketones (Negative) mg/dL Urine Blood (Negative) Urine Nitrite (Negative) Urine Bilirubin (Negative) Urine Urobilinogen (Normal) mg/dL Ur Leukocyte Esterase (Negative) Urine Microscopic RBC (0-3) per hpf Urine Microscopic WBC (0-3) per hpf Ur Squamous Epith Cells (None-Few) per lpf Urine Bacteria (None-Few) per hpf Hyaline Casts (None-Few) per lpf Urine Yeast (None Seen) per hpf Ur Culture Indicated? (NO) Nasal Screen MRSA (PCR) Negative (Negative) Stool Occult Blood Negative (Negative) Chlamy pneumoniae PCR Not Detected (Not Detect) Adenovirus (PCR) Not Detected (Not Detect) B. pertussis DNA (PCR) Not Detected (Not Detect) B.parapertussis DNA PCR Not Detected (Not Detect) Coronavirus OC43 (PCR) Not Detected (Not Detect) Coronavirus HKU1 (PCR) Not Detected (Not Detect) Coronavirus 229E (PCR) Not Detected (Not Detect) Coronavirus NL63 (PCR) Not Detected (Not Detect) Human Metapneumovir PCR Not Detected (Not Detect) Influenza A (H1) PCR Not Detected (Not Detect) Influ A (H1N1/09) PCR Not Detected (Not Detect) Influenza A (H3) PCR Not Detected (Not Detect) Influenza A Untype (PCR) Not Detected (Not Detect) Influenza Type B (PCR) Not Detected (Not Detect) M.pneumoniae DNA (PCR) Not Detected (Not Detect) Parainfluenza 1 (PCR) Not Detected (Not Detect) Parainfluenza 2 (PCR) Not Detected (Not Detect) Parainfluenza 3 (PCR) Not Detected (Not Detect) Parainfluenza 4 (PCR) Not Detected (Not Detect) RSV (PCR) Not Detected (Not Detect) Entero/Rhino (PCR) Not Detected (Not Detect) 10/27/18 Range/Units 03:48 Urine Color Dark Yellow (Yellow) Urine Clarity Turbid A (Clear) Urine pH 5.0 (5.0-8.0) pH Units Ur Specific [place] 1.024 (1.010-1.025) Urine Protein Trace (Neg-Trace) mg/dL Urine Glucose (UA) Normal (Normal) mg/dL Urine Ketones Negative (Negative) mg/dL Urine Blood Moderate H (Negative) Urine Nitrite Negative (Negative) Urine Bilirubin Small H (Negative) Urine Urobilinogen Normal (Normal) mg/dL Ur Leukocyte Esterase Large H (Negative) Urine Microscopic RBC 0-3 (0-3) per hpf Urine Microscopic WBC TNTC H (0-3) per hpf Ur Squamous Epith Cells Many H (None-Few) per lpf Urine Bacteria None Seen (None-Few) per hpf Hyaline Casts None Seen (None-Few) per lpf Urine Yeast Many H (None Seen) per hpf Ur Culture Indicated? NO. A (NO) Nasal Screen MRSA (PCR) (Negative) Stool Occult Blood (Negative) Chlamy pneumoniae PCR (Not Detect) Adenovirus (PCR) (Not Detect) B. pertussis DNA (PCR) (Not Detect) B.parapertussis DNA PCR (Not Detect) Coronavirus OC43 (PCR) (Not Detect) Coronavirus HKU1 (PCR) (Not Detect) Coronavirus 229E (PCR) (Not Detect) Coronavirus NL63 (PCR) (Not Detect) Human Metapneumovir PCR (Not Detect) Influenza A (H1) PCR (Not Detect) Influ A (H1N1/09) PCR (Not Detect) Influenza A (H3) PCR (Not Detect) Influenza A Untype (PCR) (Not Detect) Influenza Type B (PCR) (Not Detect) M.pneumoniae DNA (PCR) (Not Detect) Parainfluenza 1 (PCR) (Not Detect) Parainfluenza 2 (PCR) (Not Detect) Parainfluenza 3 (PCR) (Not Detect) Parainfluenza 4 (PCR) (Not Detect) RSV (PCR) (Not Detect) Entero/Rhino (PCR) (Not Detect) Exam - Constitutional Vitals: Temp Pulse Resp BP Pulse Ox 98.3 F 54 16 92/51 98 11/01/18 06:44 11/01/18 06:44 11/01/18 07:24 11/01/18 06:44 11/01/18 07:24 General appearance: cooperative, morbidly obese, no acute distress - Head Head exam: Present: atraumatic, normal inspection, normocephalic - Eye Eye exam: Present: EOMI, normal appearance, PERRL Pupils: Present: normal accommodation - ENT ENT exam: Present: mucous membranes moist - Neck Neck exam: Present: normal inspection - Respiratory Respiratory exam: Present: CTAB. Absent: rales, respiratory distress, rhonchi, wheezes - Cardiovascular Cardiovascular exam: Present: RRR, +S1, +S2 - GI/Abdominal GI/Abdominal exam: Present: distended (obese), normal bowel sounds, soft. Absent: tenderness - Extremities Exam Extremities exam: Present: normal inspection, pedal edema (1+ BLE). Absent: joint swelling, tenderness - Back Exam Additional comments: Sacral wound with wound VAC noted with small amount of sanguinous drainage noted. - Neurological Exam Neurological exam: Present: alert, oriented X3, no focal deficits - Psychiatric Psychiatric exam: Present: normal affect, normal mood - Skin Skin exam: Present: dry, intact, normal color, warm - Additional findings Additional findings: PICC line noted to the RUE with transparent dressing C/D/I. Consult Discharge Plan - Plan Referrals: Lang Jarvis DO [Primary Care Provider] - (Patient will be going to SNF) - Attending Attestation I have personally performed a face to face evaluation on this patient. I have reviewed and agree with the care plan. History and Exam by me shows: Assessment and plan: 1.sepsis 2.osteomyelitis of the decubitus area secondary to sore 3.multiple antibiotic allergies Wound care per surgery team recommendations. Aggressive offloading and wound care per nursing. Continue Ertapenem 1 gram IV daily. Continue vancomycin IV. Pharmacy to dose. Goal trough approximately 15. Duration of treatment depends on the clinical picture. The patient was due to c omplete 6 weeks of IV Ertapenem on 11/10/18, but will likely need to extend for an additional two weeks through 11/24/18. Will likely need a total of 6 weeks of IV Vancomycin as well. Monitor renal function for drug toxicity and dose adjust antibiotics.
[2018-11-01] MEDS ORDERED: Vancomycin 1 EACH in 0.9 % Sodium Chloride 250 ML IVPB PRN (11:00)
[2018-11-01] MEDS ORDERED: 0.9 % Sodium Chloride 250 ML ONE (11:13)
[2018-11-01 11:20] LABS: ABG Base Excess -4 mEq/L (-2 to 3); ABG HCO3 21 mEq/L (21-27); ABG Oxygen Saturation 98 % (95-98); ABG PCO2 40 mmHg (35-45); ABG PH 7.33 pH Units (7.32-7.45); ABG PO2 112 mmHg (85-104); ABG TCO2 23 mEq/L (20-26)
--- NOTE | 2018-11-01 11:47 | Gastroenterology Consult Note ---
Date of Encounter: 11/01/18 Time of Encounter: 09:35 - Assessment and plan (1) Anemia Current Visit: No Status: Chronic Assessment and plan: Hgb 8.2 on admission and today Hgb 7 with MCV 86.4. Fecal occult blood test negative on 10/30. Continue to monitor CBC and transfuse PRBC as needed. Plan for EGD and colonoscopy tomorrow. Clear liquid diet today, no red or purple. NPO at midnight. If unable tolerate NuLytely please use MiraLAX prep. If not clear by 6 AM, give 2 tap water enemas. Qualifiers: Anemia type: iron deficiency Iron deficiency anemia type: unspecified iron deficiency Qualified Code(s): D50.9 - Iron deficiency anemia, unspecified (2) BRADFORD (nonalcoholic steatohepatitis) Current Visit: No Status: Chronic Assessment and plan: RUQ US 09/12/2018 with coarse echogenicity with questionable nodularity of liver. Patient follows with sales assistants and salespersons in [place]. Complete liver work up (AFP, alpha-1 antitrypsin, RADHA, ANCA, ceruloplasmin, F actin, ferritin, hepatitis profile, AMA) - Time Spent With Patient Total time spent is greater than 50% in coordination of care (as documented) at patient's floor/unit and/or counseling patient: GI History of Present Illness - Data of Consult Patient: known to practice within the last 3 years Consult date: 11/01/18 Requesting Physician: Coleman Shepherd MD - Consult Narrative Reason for consult: Anemia, cirrhosis History of present illness: Ms. Feliciano is a 63 year old female with PMHx of Afib, CHF, COPD, CAD, CKD, DVT, DM, HLD, HTN, PA, BRADFORD cirrhosis (follows in [place]), chronic sacral ulcer who was admitted to the hospital 10/27/18 for acute kidney injury, sacral wound, sepsis, and UTI. We have been asked to evaluate the patient for anemia and cirrhosis. Hgb 8.2 on admission and today Hgb 7 with MCV 86.4. Fecal occult blood test negative on 10/30. CT A/P showed cellulitis with gas and an abscess could not be excluded, liver with no lesions noted. Procedures: EGD 06/12/2016 Dr. Hill: Gastritis. Flexible sigmoidoscopy 06/12/2016 Dr. Hill: Poor prep, internal hemorrhoids. Colonoscopy 02/10/2016 Dr. Hill: Diverticulosis, internal hemorrhoids which were banded. EGD 01/04/2012 Dr. Currie: Gastritis with hemorrhage. Colonoscopy 01/04/2012 Dr. Currie: Internal and external hemorrhoid, 3 mm tubular adenoma. Past Med Surg Social Fam HX - Past Medical History Medical history: atrial fibrillation, CHF, COPD, coronary artery disease, DVT, diabetes, GI bleed, hyperlipidemia, hypertension, myocardial infarction, renal disease, thyroid disease, other Additional medical history: hemrhoids,gout, fatty liver, decub to buttocks Psychiatric history: anxiety, depression - Past Surgical History Surgical History: angioplasty/stent, other Additional surgical history: 1 cardiac stents. right leg procedure for DVT - Social History Smoking Status: Former smoker Smokeless Tobacco Status: No Alcohol use: none Drug use: none - Family History Mother Family Member Ethnicity: Non- Living Status: Still Living Hx Family Cardiac Disorders: Yes Hx Family Endocrine Disorder: Yes (DM) Hx Family Neurologic Disorders: Yes (Dementia) Brother Family Member Ethnicity: Non- Living Status: Hx Family Cancer: Yes (colon cancer) Son Family Member Ethnicity: Non- Living Status: Still Living Hx Family GI Disorders: Yes (high grade dysplasia polyps) Father Adopted: No Family Member Ethnicity: Non- Living Status: Hx Family Cardiac Disorders: Yes (heart attack) Hx Family Respiratory Disorders: Yes (breathing issues) Hx Family Cancer: No Hx Family GI Disorders: No Hx Family Endocrine Disorder: No Hx Family Neuromuscular Disorders: No Hx Family Neurologic Disorders: No Hx Family HEENT Disorders: No Hx Family Autoimmune Disorders: No - Gastrointestinal Gastrointestinal: Present: as per HPI - Constitutional Constitutional: as per HPI - EENT Eyes: as per HPI Ears: Present: as per HPI Nose, mouth and throat: Present: as per HPI - Cardiovascular Cardiovascular ROS: Present: as per HPI - Respiratory Respiratory IM: Present: as per HPI - Genitourinary Genitourinary: Absent: change in color, Urinary frequency - Neurological ROS Neurological GI: Present: as per HPI - Hematologic/Lymphatic Hematologic/Lymphatic pediatric: Present: as per HPI - Musculoskeletal Musculoskeletal ROS GI: Present: as per HPI - Integumentary Integumentary GI: Present: as per HPI - Psychiatric ROS Psychiatric GI: Present: as per HPI - Endocrine Endocrine IM: Present: as per HPI - Constitutional Vitals: Temp Pulse Resp BP Pulse Ox 98.4 F 52 11 94/53 98 11/01/18 11:18 11/01/18 11:18 11/01/18 11:22 11/01/18 11:18 11/01/18 11:22 General appearance: Present: cooperative, A&O X 3, no acute distress, answers questions appropriately - Head Head exam: Present: atraumatic, normocephalic - Eye Eye exam: Present: normal appearance, sclera anicteric - ENT ENT exam: Present: mucous membranes dry - Neck Neck exam general surgery: Present: normal inspection, trachea midline - Respiratory Respiratory exam: Present: CTAB. Absent: rales, rhonchi - Cardiovascular Cardiovascular exam: Present: RRR, +S1, +S2 - GI/Abdominal GI/Abdominal exam: Present: soft, no peritoneal signs. Absent: distended, firm, guarding, tenderness Additional comments: Morbidly obese - Rectal Rectal exam: Present: deferred - Extremities Exam Extremities exam: Present: warm - Neurological Exam Neurological exam: Present: no focal deficits - Psychiatric Psychiatric exam: Present: normal affect, normal mood - Skin Additional comments: stage IV sacral decubitus ulcer, decibitus ulcer on the right heel. 2+ edema in the lower extr b/l - Other Additional findings: PICC in RUE Results - Labs CBC & Chem 7: 11/01/18 04:12 11/01/18 04:00 Labs: Last Result ESR 61 mm/hr (0-15) H 10/27/18 08:22 Calcium 8.1 mg/dL (8.6-10.3) L 11/01/18 04:00 Troponin I 0.03 ng/mL (< 0.04) 10/27/18 16:20 C-Reactive Protein Cancelled 10/27/18 08:22 Stool Occult Blood Negative (Negative) 10/30/18 10:46 Entire Visit Hgb 7.0 g/dL (11.5-15.4) L 11/01/18 04:12 Hct 22.2 % (35.3-44.9) L 11/01/18 04:12 PT 17.2 Seconds (9.4-12.1) H 10/28/18 03:30 Total Bilirubin 0.8 mg/dL (0.3-1.0) 10/27/18 03:35 AST 149 Units/L (13-39) H 10/27/18 03:35 ALT 32 Units/L (7-52) 10/27/18 03:35 Ammonia 50 mcmol/L (16-53) 10/27/18 08:22 - ABG ABG results: ABG ABG pH 7.33 pH Units (7.32-7.45) 11/01/18 11:17 ABG pCO2 40 mmHg (35-45) 11/01/18 11:17 ABG pO2 112 mmHg (85-104) H 11/01/18 11:17 ABG O2 Saturation 98 % (95-98) 11/01/18 11:17 PT/INR, D-dimer PT 17.2 Seconds (9.4-12.1) H 10/28/18 03:30 Consult Discharge Plan - Plan Referrals: Lang Jarvis DO [Primary Care Provider] - (Patient will be going to SNF)
--- NOTE | 2018-11-01 12:07 | Internal Med Progress Note ---
Hospitalist Progress Note - Encounter Date of Encounter: 11/01/18 Time of Encounter: 12:05 - Subjective Interval History: I have seen and evaluated the patient at bedside. today patient appears somnolent. reports its harder to her to stay awake. denies chest pain, abdominal pain, nausea or vomiting - Exam Vitals: Temp Pulse Resp BP Pulse Ox 98.4 F 52 11 94/53 98 11/01/18 11:18 11/01/18 11:18 11/01/18 11:22 11/01/18 11:18 11/01/18 11:22 Exam: Vitals: Reviewed. General: Alert and oriented x3, but somnolent Cardiovascular: RRR, normal S1 & S2, no rubs, murmurs or gallops. Lungs: CTA b/l, no wheezes or crackles. Abdomen: Obese, soft, non-tender, no rigidity. NABS in all 4 quadrants Extremities: stage IV sacral decubitus ulcer, decibitus ulcer on the right heel. 2+ edema in the lower extr b/l. 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 Hold pregabalin LFTs and ammonia level ordered Critical care service has been consulted (2) Sepsis Current Visit: No Status: Acute Assessment and Plan: resolving. BP today in the low side. could be related to anemia. patient remains afebrile. will continue ertapenem and vancomycin per ID recommendations Blood culture: 1 special projects manager of first set growing gram positive rods, pending sensitivity repeat cultures negative wound culture: enterococcus faecalis (3) Paroxysmal a-fib Current Visit: No Status: Chronic Assessment and Plan: patient bradycardic. HR in the 50s. Hold amiodarone and metoprolol today. on aspirin for secondary stroke prevention. patient given 2mg of glucagon on 2 different doses atropine 0.25mg/IV once will transferred to , patient will possibly need and external pacemaker discussed with cardiology (4) OLIVER (obstructive sleep apnea) Current Visit: No Status: Chronic Assessment and Plan: patient on Bipap (5) Morbidly obese Current Visit: No Status: Chronic (6) Acute renal failure superimposed on stage 3 chronic kidney disease Current Visit: Yes Status: Chronic Assessment and Plan: slightly worsening kidney function. consider nephrology consult if kidney function continues to worsen. nephro protective strategies (7) Sacral decubitus ulcer, stage IV Current Visit: Yes Status: Chronic Assessment and Plan: wound vac per surgery recommendations. on broad spectrum antibiotics (8) Chronic anemia Current Visit: Yes Status: Chronic Assessment and Plan: worsening anemia today. FOBT negative 2 days ago. will repeat test. on ferrous sulfate 325mg/PO daily. GI consulted for anemia work-up. will transfuse 1 unit of PRBCs check CBC one hour post transfusion. on clears liquid diet, scheduled for EGD and colonoscopy tomorrow. (9) HTN (hypertension) Current Visit: No Status: Chronic Assessment and Plan: hold antihypertensive medications. BP running in the low 90s vitals Q3HRs patient being transfused 1 unit of PRBCs, if BP remain in the low 90s post transfusion will start patient on IV fluids, (10) CAD (coronary artery disease) Current Visit: No Status: Chronic Assessment and Plan: on Aspirin 81mg/PO daily (11) CHF (congestive heart failure) Current Visit: No Status: Chronic Assessment and Plan: patient in no exacerbation. furosemide held due to BP running in the low side. strict intake and output. fluids restriction to 1.5 litters a day. (12) COPD (chronic obstructive pulmonary disease) Current Visit: No Status: Chronic Assessment and Plan: not on acute exacerbation. chest is clear to auscultation. on bronchodilators PRN. continue symbicort (13) DM (diabetes mellitus), type 2 Current Visit: No Status: Chronic Assessment and Plan: on a clear liquid diet. decrease levemir to 5 units HS, to avoid hypoglycemia (14) Cirrhosis Current Visit: No Status: Chronic (15) Bacteremia Current Visit: Yes Status: Resolved (16) Hypothyroidism Current Visit: Yes Status: Chronic Assessment and Plan: on levothyroxine 75mcg/po daily DVT Prophylaxis: Intermittent pneumatic compression for DVT prophylaxis No chemical DVT prophylaxis due to worsening anemia - Summary of Assessment and Plan Summary of Assessment and Plan: patient to remain in the hospital due to acute change in mental status. worsening anemia. scheduled for EGC and colonoscopy tomorrow. - Time Spent with Patient Total time spent is greater than 50% in coordination of care (as documented) at patient's floor/unit and/or counseling patient: Greater than 35 minutes (40) Plan of Care Discussed with: nurse Internal Medicine: Result - Labs CBC & Chem 7: 11/01/18 04:12 11/01/18 04:00 Labs: Short CBC 11/01/18 Range/Units 04:12 WBC 9.5 (4.3-11.1) K/mcL Hgb 7.0 L (11.5-15.4) g/dL Hct 22.2 L (35.3-44.9) % Plt Count 229 (140-400) K/mcL Neutrophils # 5.6 (1.6-8.9) K/mcL BMP 11/01/18 04:00 Sodium 136 Potassium 3.9 Chloride 109 H Carbon Dioxide 20 L BUN 61 H Creatinine 1.63 H Glucose 88 Calcium 8.1 L - ABG Interpretation ABG results: ABG ABG pH 7.33 pH Units (7.32-7.45) 11/01/18 11:17 ABG pCO2 40 mmHg (35-45) 11/01/18 11:17 ABG pO2 112 mmHg (85-104) H 11/01/18 11:17 ABG O2 Saturation 98 % (95-98) 11/01/18 11:17 PT/INR, D-dimer PT 17.2 Seconds (9.4-12.1) H 10/28/18 03:30 Consult Discharge Plan - Plan Referrals: Lang Jarvis, [Primary Care Provider] - (Patient will be going to ) (2) Sepsis Qualifiers: Sepsis type: sepsis due to unspecified organism Qualified Code(s): A41.9 - Sepsis, unspecified organism (6) Acute renal failure superimposed on stage 3 chronic kidney disease Qualifiers: Acute renal failure type: unspecified Qualified Code(s): N17.9 - Acute kidney failure, unspecified; N18.3 - Chronic kidney disease, stage 3 (moderate) (9) HTN (hypertension) Qualifiers: Hypertension type: essential hypertension Qualified Code(s): I10 - Essential (primary) hypertension (10) CAD (coronary artery disease) Qualifiers: Coronary Disease-Associated Artery/Lesion type: [place] artery [place] vs. transplanted heart: [place] heart Associated angina: without angina Qualified Code(s): I25.10 - Atherosclerotic heart disease of [place] coronary artery without angina pectoris (12) COPD (chronic obstructive pulmonary disease) Qualifiers: COPD type: unspecified COPD Qualified Code(s): J44.9 - Chronic obstructive pulmonary disease, unspecified (13) DM (diabetes mellitus), type 2 Qualifiers: Diabetes mellitus nursing home insulin use: with manager long term care use Diabetes mellitus complication status: with kidney complications Diabetes mellitus complication detail: with chronic kidney disease Chronic kidney disease stage: stage 3 (moderate) Qualified Code(s): E11.22 - Type 2 diabetes mellitus with diabetic chronic kidney disease; N18.3 - Chronic kidney disease, stage 3 (moderate); 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
--- NOTE | 2018-11-01 14:14 | Cardiology Consult Note ---
<Rex Bales R - Last Filed: 11/01/18 14:28> Date of Encounter: 11/01/18 Time of Encounter: 14:14 Assessment and Plan (1) Bradycardia Current Visit: No Status: Acute HR currently 40s, on Amiodarone 200mg daily. Metoprolol previously discontinued months ago due to bradycardia, although still listed on home med list. Pt presented to ED with fever, since found to have sepsis, possible bacteremia, acute on chronic anemia. Currently on BiPAP, difficult to arouse and unable to obtain history or details. TTE 07/11/2018: LVEF 65-70%. Mild concentric LVH. Mild diastolic dysfunction. Normal RV size and function. Severe left atrial enlargement. Mild mitral stenosis. Severe pulmonary hypertension. K, Mag WNL. Check TSH. SQ Glucagon ordered by primary team, already given. Will stop Amiodarone. Continue to monitor tele. Avoid AV julian blockers. Will discuss and review with Dr. Alex. (2) CAD (coronary artery disease) Current Visit: No Status: Chronic CAD s/p BMS to OM1 (03/02/2016). Continue ASA and Statin. No BB due to bradycardia. Qualifiers: Coronary Disease-Associated Artery/Lesion type: [place] artery [place] vs. transplanted heart: [place] heart Associated angina: without angina Qualified Code(s): I25.10 - Atherosclerotic heart disease of [place] coronary artery without angina pectoris (3) Paroxysmal a-fib Current Visit: No Status: Chronic Known hx of PAF maintaining SR on amiodarone 200mg daily. Will stop Amiodarone given bradycardia. Not on AC d/t GI bleed hx and acute on chronic anemia--HGB 7.0 and receiving blood transfusion. Continue ASA 81mg daily as tolerated. Discussion w patient/family: The assessment and plan as outlined above was discussed with the patient and/or family members who expressed understanding and agreement. All questions were answered. Thank you for involving us in the care of your patient. Please call with any questions. I will discuss all the above with Dr. Alex and make changes as necessary. History of Present Illness Consult date: 11/01/18 Consult reason: bradycardia History of present illness: Ms. Feliciano is a 63 year old female with PMH of DM II, essential HTN, HLD, OLIVER, morbid obesity, supplemental oxygen-dependent COPD, AF, CAD s/p BMS to OM1 (03/02/2016), and DVT in LLE. Metoprolol previously discontinued due to bradycardia, although still listed on home med list. Pt presented to ED with fever, since found to have sepsis, possible bacteremia, acute on chronic anemia. Pt now bradycardic, HR 40s and cardiology consulted for further recs. Pt is currently on BiPAP, difficult to arouse and unable to obtain history or details. On Amiodarone 200mg daily. TTE 07/11/2018: LVEF 65-70%. Mild concentric LVH. Mild diastolic dysfunction. Normal RV size and function. Severe left atrial enlargement. Mild mitral stenosis. Severe pulmonary hypertension. C 03/02/2016: Left main normal. LAD mid 20-30% stenosis. Circumflex mid 30% stenosis. OM1 90% stenosis (BMS placed). RCA proximal 20% stenosis. TTE 03/01/2016: EF 60%. Limited study for LV function. TTE 08/06/2016: LVEF 60-65%. Limited study. Past Med Surg Social Fam HX - Past Medical History Medical history: atrial fibrillation, CHF, COPD, coronary artery disease, DVT, diabetes, GI bleed, hyperlipidemia, hypertension, myocardial infarction, renal disease, thyroid disease, other Additional medical history: hemrhoids,gout, fatty liver, decub to buttocks Psychiatric history: anxiety, depression - Past Surgical History Surgical History: angioplasty/stent, other Additional surgical history: 1 cardiac stents. right leg procedure for DVT - Social History Smoking Status: Former smoker Smokeless Tobacco Status: No Alcohol use: none Drug use: none - Family History Mother Family Member Ethnicity: Non- Living Status: Still Living Hx Family Cardiac Disorders: Yes Hx Family Endocrine Disorder: Yes (DM) Hx Family Neurologic Disorders: Yes (Dementia) Brother Family Member Ethnicity: Non- Living Status: Hx Family Cancer: Yes (colon cancer) Son Family Member Ethnicity: Non- Living Status: Still Living Hx Family GI Disorders: Yes (high grade dysplasia polyps) Father Adopted: No Family Member Ethnicity: Non- Living Status: Hx Family Cardiac Disorders: Yes (heart attack) Hx Family Respiratory Disorders: Yes (breathing issues) Hx Family Cancer: No Hx Family GI Disorders: No Hx Family Endocrine Disorder: No Hx Family Neuromuscular Disorders: No Hx Family Neurologic Disorders: No Hx Family HEENT Disorders: No Hx Family Autoimmune Disorders: No Medications and Allergies Acetaminophen [Extra Strength Non-Aspirin] 500 mg PO Q6H PRN 09/13/18 [History] Albuterol Sulfate [Albuterol Inhaler] 2 puff IH Q6H PRN 09/13/18 [History] Amiodarone [Cordarone] 200 mg PO DAILY 09/13/18 [History] Aspirin Enteric Coated [Aspirin EC] 81 mg PO DAILY 09/13/18 [History] Atorvastatin [Lipitor] 20 mg PO HS 09/13/18 [History] Bisacodyl [Dulcolax] 10 mg RC DAILY PRN 09/13/18 [History] Budesonide/Formoterol 160/4.5 [Symbicort 160/4.5] 2 puff IH BIDR 09/13/18 [History] Cholecalciferol (D-3) [Vitamin D] 5,000 unit PO DAILY 09/13/18 [History] Docusate [Colace] 100 mg PO BID PRN 09/13/18 [History] Febuxostat [Uloric] 40 mg PO QPM 09/13/18 [History] Ferrous Gluconate 324 mg PO DAILY 09/13/18 [History] Furosemide [Lasix] 60 mg PO BID 09/13/18 [History] Glucagon,Human Recombinant [Glucagon Emergency Kit] 1 mg IJ AD PRN 09/13/18 [History] Lisinopril [Zestril] 40 mg PO DAILY 09/13/18 [History] Metoprolol XL (24 HR) Succ [Toprol Xl] 25 mg PO QPM 09/13/18 [History] Montelukast [Singulair] 10 mg PO HS 09/13/18 [History] Multivitamin [One Daily Essential] 1 each PO DAILY 09/13/18 [History] Omeprazole [PriLOSEC] 40 mg PO QPM 09/13/18 [History] Pregabalin [Lyrica] 75 mg PO TID 09/13/18 [History] Leptospermum Honey [Medihoney] 1 appl TP DAILY #30 tube 09/20/18 [Rx] Lactulose [Enulose] 30 gm PO BID 09/24/18 [History] Ertapenem [INVanz] 1,000 mg IVPB DAILY 10/27/18 [History] Insulin ASPART [NovoLOG] 0 unit SQ ACHS 10/27/18 [History] Insulin DETEMIR [Levemir] 13 unit SQ BID 10/27/18 [History] Levothyroxine [Synthroid] 75 mcg PO 0630 10/27/18 [History] Loratadine [Allergy Relief] 10 mg PO DAILY 10/27/18 [History] Urea/Alpha Hydroxy Acids [Atrac-Tain Cream] 142 gm TP BID 10/27/18 [History] Allergy/AdvReac Type Severity Reaction Status Date / Time ciprofloxacin [From Cipro] Allergy Severe Anaphylaxis Verified 07/11/18 09:28 clarithromycin [From Biaxin] Allergy Severe Hives Verified 07/11/18 09:28 clonidine Allergy Severe Anaphylaxis Verified 07/11/18 09:28 levofloxacin [From Levaquin] Allergy Severe Anaphylaxis Verified 07/11/18 09:28 Warfarin Allergy Severe Difficulty Verified 07/11/18 09:28 Breathing Cefaclor Allergy Anaphylaxis Verified 07/11/18 09:28 codeine Allergy Rash Verified 07/11/18 09:28 Hydralazine Allergy Hives Verified 07/11/18 09:28 sulfamethoxazole Allergy Hives Verified 07/11/18 09:28 [From Bactrim] trimethoprim [From Bactrim] Allergy Hives Verified 07/11/18 09:28 tiotropium AdvReac Severe Blurry Verified 07/11/18 09:28 [From Spiriva with Vision HandiHaler] acarbose AdvReac Blurry Verified 07/11/18 09:28 Vision atorvastatin [From Lipitor] AdvReac Muscle Pain Verified 07/11/18 09:28 fenofibrate [From Tricor] AdvReac Muscle Pain Verified 07/11/18 09:28 rivaroxaban [From Xarelto] AdvReac Gastrointestinal Verified 07/11/18 09:28 Upset ROS unobtainable: due to mental status All Systems Review: The remainder of the systems were reviewed and are negative Physical Examination Vital Signs, Last 4 Hours Temp Pulse Resp BP Pulse Ox 11/01/18 12:40 98.4 F 52 17 112/62 97 11/01/18 12:26 98.3 F 56 20 101/60 11/01/18 11:22 11 98 11/01/18 11:18 98.4 F 52 15 94/53 100 Vital Signs Temp Pulse Resp BP Pulse Ox 11/01/18 12:40 98.4 F 52 17 112/62 97 11/01/18 12:26 98.3 F 56 20 101/60 11/01/18 11:22 11 98 11/01/18 11:18 98.4 F 52 15 94/53 100 11/01/18 07:24 16 98 11/01/18 06:44 98.3 F 54 16 92/51 98 11/01/18 05:37 97.4 F L 54 16 105/47 96 11/01/18 00:02 17 97 10/31/18 23:40 99.3 F 55 16 94/42 96 10/31/18 20:00 98.2 F 58 17 80/44 95 10/31/18 19:47 17 98 10/31/18 15:47 98.3 F 58 18 94/42 93 Intake and Output 10/31/18 11/01/18 11/01/18 23:59 07:59 15:59 Intake Total 350 / 350 500 / 500 Output Total 50 / 50 Balance 300 / 300 500 / 500 Intake: IV Fluids 350 / 350 INVanz 1,000 MG In 0.9 % Sodium 100 / 100 Chloride (Mini-Bag +) 100 ML @ 100 mls/hr IVPB DAILY ON LICENSE OF [facility] Rx#: [id number] Vancocin 1,250 MG In 0.9 % 250 / 250 Sodium Chloride 250 ML @ 166. 667 mls/hr IVPB Q24H ON LICENSE OF [facility] Rx#: [id number] Blood Product 500 / 500 Rbcs Leuko Poor As-1 Unit 500 / 500 [id number] Output: Wound Drainage 50 / 50 Sacrum 50 / 50 Other: Stool Size Moderate Stool Consistency liquid Stool Characteristics Normal for Patient Stool Color Brown # Bowel Movements 1 Blood Glucose* 147 92 General: Other (on BiPAP) HEENT: Atraumatic, Normocephaly, Mucus Membranes Moist Neck: Normal carotid pulses Cardiac: Reg Rate and Rhythm, Normal S1 and S2, No Murmur Lungs: Other (BiPAP) Neuro: Other (difficult to arouse) Abdomen: Soft, Non-Tender Skin: No rashes noted on visualized skin Musculoskeletal: No Chest Wall Tenderness Extremities: Other (moderate BLE edema) Results 11/01/18 04:12 11/01/18 04:00 Lab Results 11/01/18 11/01/18 04:00 04:12 WBC 9.5 Hgb 7.0 L Hct 22.2 L Plt Count 229 Sodium 136 Potassium 3.9 Chloride 109 H Carbon Dioxide 20 L BUN 61 H Creatinine 1.63 H Glucose 88 Calcium 8.1 L Magnesium 2.0 Short CBC 11/01/18 Range/Units 04:12 WBC 9.5 (4.3-11.1) K/mcL Hgb 7.0 L (11.5-15.4) g/dL Hct 22.2 L (35.3-44.9) % Plt Count 229 (140-400) K/mcL Neutrophils # 5.6 (1.6-8.9) K/mcL BMP 11/01/18 Range/Units 04:00 Sodium 136 (136-145) mEq/L Potassium 3.9 (3.5-5.1) mEq/L Chloride 109 H (98-107) mEq/L Carbon Dioxide 20 L (23-29) mEq/L BUN 61 H (8-23) mg/dL Creatinine 1.63 H (0.60-1.20) mg/dL Glucose 88 (70-105) mg/dL Calcium 8.1 L (8.6-10.3) mg/dL Active Medications Acetaminophen (Tylenol) 650 mg PO Q6HR PRN PRN Reason: Fever Stop: 04/29/19 15:24 Last Admin: 11/01/18 09:30 Dose: 650 mg Albuterol Sulfate (Albuterol Inhaler) 2 puff IH Q6H PRN PRN Reason: Shortness Of Breath/Wheezing Stop: 04/28/19 08:48 Aspirin (Aspirin Ec) 81 mg PO DAILY OFE Stop: 04/28/19 09:01 Last Admin: 11/01/18 07:55 Dose: 81 mg Atorvastatin Calcium (Lipitor) 20 mg PO HS OFE Stop: 04/28/19 21:01 Last Admin: 10/31/18 20:54 Dose: 20 mg Bisacodyl (Dulcolax) 10 mg RC DAILY PRN PRN Reason: Constipation Stop: 04/28/19 08:48 Bisacodyl (Dulcolax) 20 mg PO ONCE ONE Stop: 11/01/18 15:01 Budesonide/Formoterol Fumarate (Symbicort) 2 puff IH BIDR ON LICENSE OF [facility]; Protocol Stop: 04/28/19 10:01 Last Admin: 11/01/18 07:24 Dose: 2 puff Dextrose (Glucose Tablets) 28 gm PO ONCE PRN PRN Reason: Hypoglycemia Stop: 04/28/19 13:06 Dextrose (Glucose Tablets) 16 gm PO ONCE PRN PRN Reason: Hypoglycemia Stop: 04/28/19 13:06 Dextrose/Water (Dextrose 50% (Syg)) 25 ml IVP AD PRN PRN Reason: Hypoglycemia Stop: 04/28/19 13:06 Docusate Sodium (Colace) 100 mg PO BID PRN; Protocol PRN Reason: Constipation Stop: 04/28/19 08:48 Ferrous Sulfate (Ferrous Sulfate) 325 mg PO DAILY@1200 OFE Stop: 04/28/19 12:01 Last Admin: 11/01/18 11:34 Dose: 325 mg Glucagon (Glucagen) 1 mg IM ONCE PRN PRN Reason: Hypoglycemia Stop: 04/28/19 13:06 Glucose (Gluctose) 15 gm PO ONCE PRN PRN Reason: Hypoglycemia Stop: 04/28/19 13:06 Glucose (Gluctose) 30 gm PO ONCE PRN PRN Reason: Hypoglycemia Stop: 04/28/19 13:06 Ertapenem 1,000 mg/ Sodium (Chloride) 100 mls @ 100 mls/hr IVPB DAILY ON LICENSE OF [facility] Stop: 11/10/18 10:01 Last Admin: 11/01/18 07:57 Dose: 100 mls/hr Dextrose (Dextrose 5%) 1,000 mls @ 100 mls/hr IVC .Q10H PRN PRN Reason: HYPOGLYCEMIA Stop: 04/28/19 13:06 Vancomycin HCl 1 each/ Sodium (Chloride) 250 mls @ 167 mls/hr IVPB RPHPROT PRN; Protocol PRN Reason: Placeholder Stop: 05/03/19 11:01 Insulin Detemir (Levemir) 5 unit SQ HS ON LICENSE OF [facility] Stop: 05/03/19 21:01 Insulin Human Lispro (Humalog) 0 units SQ TIDAC ON LICENSE OF [facility]; Protocol Stop: 04/28/19 16:31 Last Admin: 11/01/18 07:52 Dose: Not Given Lactulose (Lactulose) 30 gm PO BID ON LICENSE OF [facility] Stop: 04/28/19 09:01 Last Admin: 11/01/18 07:56 Dose: 30 gm Leptospermum Honey (Medihoney) 1 appl TP HS OFE Stop: 04/28/19 21:01 Last Admin: 10/31/18 22:50 Dose: 1 appl Levothyroxine Sodium (Synthroid) 75 mcg PO 0630 OFE Stop: 04/29/19 06:31 Last Admin: 11/01/18 05:35 Dose: 75 mcg Loratadine (Claritin) 10 mg PO DAILY OFE; Protocol Stop: 04/28/19 09:01 Last Admin: 11/01/18 07:56 Dose: 10 mg Montelukast Sodium (Singulair) 10 mg PO HS OFE Stop: 04/28/19 21:01 Last Admin: 10/31/18 20:55 Dose: 10 mg Multivitamins/Calcium (Thera M Plus) 1 tab PO DAILY OFE Stop: 04/28/19 09:01 Last Admin: 11/01/18 07:56 Dose: 1 tab Naloxone HCl (Narcan) 0.4 mg IVP Q2M PRN PRN Reason: SEE COMMENTS Stop: 04/28/19 08:40 Omeprazole (Prilosec) 40 mg PO QPM OFE Stop: 04/28/19 18:01 Last Admin: 10/31/18 17:57 Dose: 40 mg Pregabalin (Lyrica) 75 mg PO TID ON LICENSE OF [facility] Stop: 04/28/19 09:01 Last Admin: 11/01/18 07:56 Dose: 75 mg Sodium Cl/Sod Bicarb/Potass Cl/PEG (Nulytely) 4,000 ml PO ONCE ONE; Protocol Stop: 11/01/18 17:01 Vitamin D (Vitamin D) 1,000 unit PO DAILY OFE Stop: 04/28/19 09:01 Last Admin: 11/01/18 07:56 Dose: 1,000 unit - Imaging and Cardiology Echo: report reviewed Cardiac cath: report reviewed - EKG Interpretation EKG results cardiology: personally reviewed (sinus shlomo, HR 48), other (12 hr tele AVG HR 52, SR) Consult Discharge Plan - Plan Referrals: Lang Jarvis DO [Primary Care Provider] - (Patient will be going to SNF) < A - Last Filed: 11/01/18 16:33> Date of Encounter: 02/26/19 - Attending Attestation I have personally performed a face to face evaluation on this patient. I have reviewed and agree with the documented findings and care plan as documented by the HOG FEEDER. History and Exam by me shows: 63-year-old female with history of atrial fibrillation on amiodarone. Metoprolol was recently discontinued due to bradycardia, severe pulmonary hypertension. She was admitted for severe anemia and sepsis with respiratory failure on BiPAP. Now noted to be bradycardic in the 40s. No history of lightheadedness and dizziness or syncope. Recommend to discontinue amiodarone, obtain TSH to rule out hypothyroidism. Please pay close attention to respiratory status has hypoxia can worsen bradycardia. If symptomatic bradycardia or hemodynamic status deteriorates, administer atropine and tr anscutaneous pacer and please call cardiology immediately. Thanks, Burak Alex MD [facility] Assessment and Plan Discussion w patient/family: The assessment and plan as outlined above was discussed with the patient and/or family members who expressed understanding and agreement. All questions were answered. Thank you for involving us in the care of your patient. Please call with any questions. History of Present Illness History of present illness: Ms. Feliciano is a 63 year old female All Systems Review: The remainder of the systems were reviewed and are negative Physical Examination Vital Signs, Last 4 Hours Temp Pulse Resp BP Pulse Ox 11/01/18 16:01 97.4 F L 40 24 111/43 100 11/01/18 15:50 11 100 11/01/18 12:41 98.6 F 40 16 107/65 98 11/01/18 12:40 98.4 F 52 17 112/62 97 Results 11/01/18 04:12 11/01/18 04:00 Lab Results 11/01/18 11/01/18 04:00 04:12 WBC 9.5 Hgb 7.0 L Hct 22.2 L Plt Count 229 Sodium 136 Potassium 3.9 Chloride 109 H Carbon Dioxide 20 L BUN 61 H Creatinine 1.63 H Glucose 88 Calcium 8.1 L Magnesium 2.0
[2018-11-01] MEDS ORDERED: *HR* Atropine Sulfate 1 MG/ML VIAL IVP ONE (14:53)
--- NOTE | 2018-11-01 16:02 | Pulmonology Consult Note ---
<Bryan Nolan S - Last Filed: 11/01/18 16:37> Date of Encounter: 11/01/18 Time of Encounter: 16:28 Assessment and Plan (1) Somnolence Current Visit: Yes Status: Acute Pt with increasing somnolence of unknown etiology - will not respond to command on exam nor will she participate in conversation - does withdraw from pain ABG 11/01/18: pH 7.33, pCO2 40, pO2 112, HCO3 21 Plan: - lactic acid pending - holding pregabalin and - continue BiPAP - LFTs, ammonia leels pending - CT head pending, r/o acute intracranial abnromality - continue accuchecks (2) Bradycardia Current Visit: Yes Status: Acute Pt noted to be bradycardic today by primary - cardiology saw the patient and d/c amiodarone Magnesium 2.0, phsphorus 4.5, potassium 3.9 Plan: - continue to d/c lopressor and amiodarone - sq glucagon as per primary - continue telemetry monitoring - hold AV julian blockers - continue BiPAP - TSH pending (3) Sepsis Current Visit: Yes Status: Resolved Pt did meet sepsis on admission for WBC count and fever of 101.1 - source of infxn urine vs chronic sacral decubitus ulcer - lactic acid on admission 1.8 10/27: blood cx grew g(+) rods 10/27: wound cx grew enterococcus faecalis resistant to tetracycline CT scan from 10/27 - Cellulitis with edema and gas pockets in subcutaneous tissues overlying the coccyx. Defect in overlying skin represents area of ulcer. Developing abscess not excluded. No drainable fluid collection. No CT evidence for osteomyelitis - Along the inferior aspect of the left buttock there is asymmetric skin thickening and subcutaneous tissue infiltration which could represent a focus of cellulitis. Serology panel negative Plan: - continue vancomycin and ertampenem, as per ID recommendations ertapenem until 11/10/18, potentially 11/24/18 six weeks total IV vancomycin - continue contact precautions - blood cx pending from 10/31 - surgery following for sacral decubitus ulcer - ESR/CRP pending Qualifiers: Sepsis type: sepsis due to unspecified organism Qualified Code(s): A41.9 - Sepsis, unspecified organism (4) Decubitus ulcer, infected Current Visit: Yes Status: Acute See plan as above for sepsis. Qualifiers: Pressure injury stage: stage 4 Qualified Code(s): L89.94 - Pressure ulcer of unspecified site, stage 4; L08.9 - Local infection of the skin and molina bcutaneous tissue, unspecified (5) Paroxysmal A-fib Current Visit: Yes Status: Acute (6) Morbid obesity Current Visit: No Status: Chronic BMI 41.5 - chronic (7) Hypertension Current Visit: No Status: Chronic Chronic - continue home meds as per primary Qualifiers: Hypertension type: essential hypertension Qualified Code(s): I10 - Es sential (primary) hypertension (8) Chronic ulcer of sacral region with necrosis of muscle Current Visit: Yes Status: Acute See above. (9) DVT prophylaxis Current Visit: Yes Status: Acute scd (10) Chronic anemia Current Visit: Yes Status: Chronic Patient with hemoglobin of 7.0 - anemia appears chronic, basleine around 7-9 FOBT (-) Plan: - repeat FOBT pending - ferrous sulfate daily - GI consulted - CLD for EGD/colonoscopy tomorrow - pt to get 1 u pRBC today (11) Acute and chronic respiratory failure with hypoxia Current Visit: Yes Status: Acute See above for somnolence - continue BiPAP (12) CHF (congestive heart failure) Current Visit: No Status: Chronic NOT in acute exacerbation Last ECHO 07/2018 Impressions: LVEF 65-70%. Mild concentric left ventricular hypertrophy. Mild left ventricular diastolic dysfunction. Normal right ventricular structure and function. Severely dilated left atrium. Mildly dilated right atrium. Mild mitral stenosis. Severe pulmonary hypertension. Plan: - lasix currently held due to hypotension - strict I&O - fluid restriction 1.5 L Qualifiers: Heart failure type: unspecified Heart failure chronicity: acute on chronic Qualified Code(s): I50.9 - Heart failure, unspecified (13) CKD (chronic kidney disease) stage 3, GFR 30-59 ml/min Current Visit: No Status: Chronic Chronic. (14) COPD (chronic obstructive pulmonary disease) Current Visit: No Status: Chronic Continue bronchodilators as needed, symbicort, singular. Encorage incentve spirometry. Qualifiers: COPD type: unspecified COPD Qualified Code(s): J44.9 - Chronic obstructive pulmonary disease, unspecified (15) Hypothyroidism Current Visit: No Status: Chronic Chronic. on synthroid Qualifiers: Hypothyroidism type: unspecified Qualified Code(s): E03.9 - Hypothyroidism, unspecified History of Present Illness Consult date: 11/01/18 Requesting physician: Coleman Shepherd Reason for consult: other (AMS, bradycardia) Chief complaint: fever, AMS, bradycardia History of present illness: Mrs Feliciano is a 63yo femlae with PMH a fib, COPD, CHF, CAD, T2DM, GIB, HTN, HLD, hx of [place], renal disease and depression. She initially presented on 10/27 with the cheif complaint of fever from a [employer]. Apperantly the pt had started to feel warm and more weak from baseline. She was being trated with IV levaquin via PICC line for UTI with stop date of 11/04/18. She was admitted and being seen by Dr Bella and was diagnosed with UTI and sepsis secondary to sa cral ulcer. She was being treated with vancomcin and invanz. Since being admitted the patient has become increasingly bradycardic and lethargic. She was found to be very somnolent this morning y primary attending and was placed on BiPAP, to which she responded well. Cardiology also seeing the pt for bradycardia and she was discontinued on amiodarone and is to avoid AV julian blockers. She is consulted to critical care for AMS and bradycardia. At this time the pt was not able to answer any questions. She is unable to participate in the conversation and is very lethargic. She is resting in bed on BiPAP. The pt winches to pain upon sternal rub but will not open her eyes or respond. Past Med Surg Social Fam HX - Past Medical History Medical history: atrial fibrillation, CHF, COPD, coronary artery disease, DVT, diabetes, GI bleed, hyperlipidemia, hypertension, myocardial infarction, renal disease, thyroid disease, other Additional medical history: hemrhoids,gout, fatty liver, decub to buttocks Psychiatric history: anxiety, depression - Past Surgical History Surgical History: angioplasty/stent, other Additional surgical history: 1 cardiac stents. right leg procedure for DVT - Social History Smoking Status: Former smoker Smokeless Tobacco Status: No Alcohol use: none Drug use: none - Family History Brother Family Member Ethnicity: Non- Living Status: Hx Family Cancer: Yes (colon cancer) Father Adopted: No Family Member Ethnicity: Non- Living Status: Hx Family Cardiac Disorders: Yes (heart attack) Hx Family Respiratory Disorders: Yes (breathing issues) Hx Family Cancer: No Hx Family GI Disorders: No Hx Family Endocrine Disorder: No Hx Family Neuromuscular Disorders: No Hx Family Neurologic Disorders: No Hx Family HEENT Disorders: No Hx Family Autoimmune Disorders: No Mother Family Member Ethnicity: Non- Living Status: Still Living Hx Family Cardiac Disorders: Yes Hx Family Endocrine Disorder: Yes (DM) Hx Family Neurologic Disorders: Yes (Dementia) Son Family Member Ethnicity: Non- Living Status: Still Living Hx Family GI Disorders: Yes (high grade dysplasia polyps) Medications and Allergies RX: Acetaminophen [Extra Strength Non-Aspirin] 500 mg PO Q6H PRN 09/13/18 [History] RX: Albuterol Sulfate [Albuterol Inhaler] 2 puff IH Q6H PRN 09/13/18 [History] RX: Amiodarone [Cordarone] 200 mg PO DAILY 09/13/18 [History] RX: Aspirin Enteric Coated [Aspirin EC] 81 mg PO DAILY 09/13/18 [History] RX: Atorvastatin [Lipitor] 20 mg PO HS 09/13/18 [History] RX: Bisacodyl [Dulcolax] 10 mg RC DAILY PRN 09/13/18 [History] RX: Budesonide/Formoterol 160/4.5 [Symbicort 160/4.5] 2 puff IH BIDR 09/13/18 [History] RX: Cholecalciferol (D-3) [Vitamin D] 5,000 unit PO DAILY 09/13/18 [History] RX: Docusate [Colace] 100 mg PO BID PRN 09/13/18 [History] RX: Febuxostat [Uloric] 40 mg PO QPM 09/13/18 [History] RX: Ferrous Gluconate 324 mg PO DAILY 09/13/18 [History] RX: Furosemide [Lasix] 60 mg PO BID 09/13/18 [History] RX: Glucagon,Human Recombinant [Glucagon Emergency Kit] 1 mg IJ AD PRN 09/13/18 [History] RX: Lisinopril [Zestril] 40 mg PO DAILY 09/13/18 [History] RX: Metoprolol XL (24 HR) Succ [Toprol Xl] 25 mg PO QPM 09/13/18 [History] RX: Montelukast [Singulair] 10 mg PO HS 09/13/18 [History] RX: Multivitamin [One Daily Essential] 1 each PO DAILY 09/13/18 [History] RX: Omeprazole [PriLOSEC] 40 mg PO QPM 09/13/18 [History] RX: Pregabalin [Lyrica] 75 mg PO TID 09/13/18 [History] RX: Leptospermum Honey [Medihoney] 1 appl TP DAILY #30 tube 09/20/18 [Rx] RX: Lactulose [Enulose] 30 gm PO BID 09/24/18 [History] Ertapenem [INVanz] 1,000 mg IVPB DAILY 10/27/18 [History] Insulin ASPART [NovoLOG] 0 unit SQ ACHS 10/27/18 [History] Insulin DETEMIR [Levemir] 13 unit SQ BID 10/27/18 [History] Levothyroxine [Synthroid] 75 mcg PO 0630 10/27/18 [History] Loratadine [Allergy Relief] 10 mg PO DAILY 10/27/18 [History] Urea/Alpha Hydroxy Acids [Atrac-Tain Cream] 142 gm TP BID 10/27/18 [History] Allergy/AdvReac Type Severity Reaction Status Date / Time ciprofloxacin [From Cipro] Allergy Severe Anaphylaxis Verified 07/11/18 09:28 clarithromycin [From Biaxin] Allergy Severe Hives Verified 07/11/18 09:28 clonidine Allergy Severe Anaphylaxis Verified 07/11/18 09:28 levofloxacin [From Levaquin] Allergy Severe Anaphylaxis Verified 07/11/18 09:28 Warfarin Allergy Severe Difficulty Verified 07/11/18 09:28 Breathing Cefaclor Allergy Anaphylaxis Verified 07/11/18 09:28 codeine Allergy Rash Verified 07/11/18 09:28 Hydralazine Allergy Hives Verified 07/11/18 09:28 sulfamethoxazole Allergy Hives Verified 07/11/18 09:28 [From Bactrim] trimethoprim [From Bactrim] Allergy Hives Verified 07/11/18 09:28 tiotropium AdvReac Severe Blurry Verified 07/11/18 09:28 [From Spiriva with Vision HandiHaler] acarbose AdvReac Blurry Verified 07/11/18 09:28 Vision atorvastatin [From Lipitor] AdvReac Muscle Pain Verified 07/11/18 09:28 fenofibrate [From Tricor] AdvReac Muscle Pain Verified 07/11/18 09:28 rivaroxaban [From Xarelto] AdvReac Gastrointestinal Verified 07/11/18 09:28 Upset ROS unobtainable: due to mental status All Systems: The remainder of the systems were reviewed and are negative Physical Examination Vital Signs: Vital Signs, Last 4 Hours Temp Pulse Resp BP Pulse Ox 11/01/18 15:50 11 100 11/01/18 12:41 98.6 F 40 16 107/65 98 11/01/18 12:40 98.4 F 52 17 112/62 97 11/01/18 12:26 98.3 F 56 20 101/60 General appearance: lethargic, asleep Eyes: nonicteric ENT: oropharynx dry Effort: mildly labored Auscultation: bilateral: diminished breath sounds Cardiovascular: irregular rhythm, other (bradycardic) Gastrointestinal: soft, non-tender, non-distended, other (morbid obesity) Integumentary: decubitus ulcer Extremities: pink and warm, pulses normal, edema Musculoskeletal: no deformities unable to assess due to mental status other (unable to assess due to mental status) Results - Laboratory Findings CBC and BMP: 11/01/18 04:12 11/01/18 04:00 ABG ABG pH 7.33 pH Units (7.32-7.45) 11/01/18 11:17 ABG pCO2 40 mmHg (35-45) 11/01/18 11:17 ABG pO2 112 mmHg (85-104) H 11/01/18 11:17 ABG O2 Saturation 98 % (95-98) 11/01/18 11:17 PT/INR, D-dimer PT 17.2 Seconds (9.4-12.1) H 10/28/18 03:30 Abnormal lab findings: Abnormal lab results RBC 2.57 M/mcL (3.82-4.97) L 11/01/18 04:12 Hgb 7.0 g/dL (11.5-15.4) L 11/01/18 04:12 Hct 22.2 % (35.3-44.9) L 11/01/18 04:12 MCH 27.2 pg (28.0-33.3) L 11/01/18 04:12 MCHC 31.5 g/dL (31.6-35.5) L 11/01/18 04:12 RDW 18.0 % (11.5-14.5) H 11/01/18 04:12 Eosinophils # 0.7 K/mcL (0.0-0.6) H 11/01/18 04:12 ESR 61 mm/hr (0-15) H 10/27/18 08:22 PT 17.2 Seconds (9.4-12.1) H 10/28/18 03:30 APTT 36.9 Seconds (26.0-36.0) H 10/27/18 03:35 ABG pO2 112 mmHg (85-104) H 11/01/18 11:17 ABG Base Excess -4 mEq/L (-2 to 3) L 11/01/18 11:17 Chloride 109 mEq/L (98-107) H 11/01/18 04:00 Carbon Dioxide 20 mEq/L (23-29) L 11/01/18 04:00 BUN 61 mg/dL (8-23) H 11/01/18 04:00 Creatinine 1.63 mg/dL (0.60-1.20) H 11/01/18 04:00 Est GFR ( Amer) 39 (> 60) L 11/01/18 04:00 Est GFR (Non-Af Amer) 32 (> 60) L 11/01/18 04:00 BUN/Creatinine Ratio 37 (6-26) H 11/01/18 04:00 POC Glucose 147 mg/dL (70-99) H 10/31/18 20:28 Calcium 8.1 mg/dL (8.6-10.3) L 11/01/18 04:00 Direct Bilirubin 0.3 mg/dL (0.0-0.2) H 10/27/18 03:35 AST 149 Units/L (13-39) H 10/27/18 03:35 Alkaline Phosphatase 157 Units/L (34-104) H 10/27/18 03:35 Serum Total Protein 5.3 g/dL (6.4-8.9) L 10/27/18 03:35 Albumin 1.9 g/dL (3.5-5.7) L 10/27/18 03:35 Albumin/Globulin Ratio 0.6 (1.1-2.2) L 10/27/18 03:35 Urine Clarity Turbid (Clear) A 10/27/18 03:48 Urine Blood Moderate (Negative) H 10/27/18 03:48 Urine Bilirubin Small (Negative) H 10/27/18 03:48 Ur Leukocyte Esterase Large (Negative) H 10/27/18 03:48 Urine Microscopic WBC TNTC per hpf (0-3) H 10/27/18 03:48 Ur Squamous Epith Cells Many per lpf (None-Few) H 10/27/18 03:48 Urine Yeast Many per hpf (None Seen) H 10/27/18 03:48 Ur Culture Indicated? NO. (NO) A 10/27/18 03:48 Vancomycin Trough 29 mcg/mL (5-10) H 11/01/18 08:05 - Microbiology Findings Microbiology Findings: Microbiology, Last 48 Hours 10/27/18 11:25 Blood Culture - Final Peripheral Venipuncture No growth. Final report. 10/27/18 11:38 Anaerobic Culture - Preliminary Other-Specify in Comments At this time, no anaerobic growth is present. The culture will be finalized after 5 days of incubation. 10/27/18 08:22 Blood Culture - Final Peripheral Venipuncture No growth. Final report. 10/27/18 08:15 Blood Culture - Final Peripheral Venipuncture No growth. Final report. 10/31/18 14:32 Blood Culture - Preliminary Peripheral Venipuncture Culture is incubating and being continuously monitored for growth. Final report to follow. 10/31/18 14:32 Blood Culture - Preliminary Peripheral Venipuncture Culture is incubating and being continuously monitored for growth. Final report to follow. 10/27/18 03:35 Blood Culture - Preliminary Peripheral Venipuncture Gram Positive Rods Gram Positive Rods#2 10/27/18 11:38 Wound Culture - Final Other-Specify in Comments Enterococcus faecalis - Clinical Findings Intake & Output: Intake & Output 11/01/18 11/01/18 11/01/18 07:59 15:59 23:59 Intake Total 1000 / 1000 Balance 1000 / 1000 Consult Discharge Plan - Plan Referrals: Lang Jarvis, [Primary Care Provider] - (Patient will be going to SNF) <Felicita Vieyra - Last Filed: 11/01/18 17:15> Date of Encounter: 11/01/18 All Systems: The remainder of the systems were reviewed and are negative Physical Examination Vital Signs: Vital Signs, Last 4 Hours Temp Pulse Resp BP Pulse Ox 11/01/18 16:01 97.4 F L 40 24 111/43 100 11/01/18 15:50 11 100 Results - Laboratory Findings CBC and BMP: 11/01/18 16:35 11/01/18 04:00 ABG ABG pH 7.33 pH Units (7.32-7.45) 11/01/18 11:17 ABG pCO2 40 mmHg (35-45) 11/01/18 11:17 ABG pO2 112 mmHg (85-104) H 11/01/18 11:17 ABG O2 Saturation 98 % (95-98) 11/01/18 11:17 PT/INR, D-dimer PT 17.2 Seconds (9.4-12.1) H 10/28/18 03:30 Abnormal lab findings: Abnormal lab results RBC 2.82 M/mcL (3.82-4.97) L 11/01/18 16:35 Hgb 7.7 g/dL (11.5-15.4) L 11/01/18 16:35 Hct 24.3 % (35.3-44.9) L 11/01/18 16:35 MCH 27.3 pg (28.0-33.3) L 11/01/18 16:35 RDW 17.7 % (11.5-14.5) H 11/01/18 16:35 Eosinophils # 0.7 K/mcL (0.0-0.6) H 11/01/18 16:35 ESR 61 mm/hr (0-15) H 10/27/18 08:22 PT 17.2 Seconds (9.4-12.1) H 10/28/18 03:30 APTT 36.9 Seconds (26.0-36.0) H 10/27/18 03:35 ABG pO2 112 mmHg (85-104) H 11/01/18 11:17 ABG Base Excess -4 mEq/L (-2 to 3) L 11/01/18 11:17 Chloride 109 mEq/L (98-107) H 11/01/18 04:00 Carbon Dioxide 20 mEq/L (23-29) L 11/01/18 04:00 BUN 61 mg/dL (8-23) H 11/01/18 04:00 Creatinine 1.63 mg/dL (0.60-1.20) H 11/01/18 04:00 Est GFR ( Amer) 39 (> 60) L 11/01/18 04:00 Est GFR (Non-Af Amer) 32 (> 60) L 11/01/18 04:00 BUN/Creatinine Ratio 37 (6-26) H 11/01/18 04:00 POC Glucose 147 mg/dL (70-99) H 10/31/18 20:28 Calcium 8.1 mg/dL (8.6-10.3) L 11/01/18 04:00 Direct Bilirubin 0.3 mg/dL (0.0-0.2) H 10/27/18 03:35 AST 149 Units/L (13-39) H 10/27/18 03:35 Alkaline Phosphatase 157 Units/L (34-104) H 10/27/18 03:35 Ammonia 74 mcmol/L (16-53) H 11/01/18 16:35 Serum Total Protein 5.3 g/dL (6.4-8.9) L 10/27/18 03:35 Albumin 1.9 g/dL (3.5-5.7) L 10/27/18 03:35 Albumin/Globulin Ratio 0.6 (1.1-2.2) L 10/27/18 03:35 Urine Clarity Turbid (Clear) A 10/27/18 03:48 Urine Blood Moderate (Negative) H 10/27/18 03:48 Urine Bilirubin Small (Negative) H 10/27/18 03:48 Ur Leukocyte Esterase Large (Negative) H 10/27/18 03:48 Urine Microscopic WBC TNTC per hpf (0-3) H 10/27/18 03:48 Ur Squamous Epith Cells Many per lpf (None-Few) H 10/27/18 03:48 Urine Yeast Many per hpf (None Seen) H 10/27/18 03:48 Ur Culture Indicated? NO. (NO) A 10/27/18 03:48 Vancomycin Trough 29 mcg/mL (5-10) H 11/01/18 08:05 - Microbiology Findings Microbiology Findings: Microbiology, Last 48 Hours 10/27/18 11:25 Blood Culture - Final Peripheral Venipuncture No growth. Final report. 10/27/18 11:38 Anaerobic Culture - Preliminary Other-Specify in Comments At this time, no anaerobic growth is present. The culture will be finalized after 5 days of incubation. 10/27/18 08:22 Blood Culture - Final Peripheral Venipuncture No growth. Final report. 10/27/18 08:15 Blood Culture - Final Peripheral Venipuncture No growth. Final report. 10/31/18 14:32 Blood Culture - Preliminary Peripheral Venipuncture Culture is incubating and being continuously monitored for growth. Final report to follow. 10/31/18 14:32 Blood Culture - Preliminary Peripheral Venipuncture Culture is incubating and being continuously monitored for growth. Final report to follow. 10/27/18 03:35 Blood Culture - Preliminary Peripheral Venipuncture Gram Positive Rods Gram Positive Rods#2 10/27/18 11:38 Wound Culture - Final Other-Specify in Comments Enterococcus faecalis - Clinical Findings Intake & Output: Intake & Output 11/01/18 11/01/18 11/01/18 07:59 15:59 23:59 Intake Total 1000 / 1000 Balance 1000 / 1000 - Attending Attestation I examined this patient and my medical decision-making was reviewed with the Resident Physician. I agree with the documented findings, disposition and treatment plan as described except to the extent set forth below. Patient seen and examined. I was called by the hospitalist to assess this patient because her condition has deteriorated significantly from earlier. Labs, radiology, chart personally reviewed. 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 Pulmonary: Acceptable oxygenation and ventilation and she is tolerating noninvasive ventilation. Cardiovascular: stable blood pressure, however she has bradycardia and this could be from medication and can sepsis in the differential diagnosis. To hold her beta blockers and discussed with the hospitalist to have order for dopamine if her blood pressure drops. I am concerned assess her sepsis is worsening. GI: Nutrition per dietary and GI prophylaxis per routine Heme: DVT prophylaxis per routine ID: Continue antibiotics and plan to de-escalation. Check lactic acid and continue broad-spectrum antibiotics Renal; urine out put and renal funtion reviewed Endorcine: blood glucose is monitored Lines: all lines checked and no evidence of infections Skin: skin care to prevent pressure ulcers per nursing routine care I spent 32 min of Critical Care time with this patient. It involved decision making of high complexity to assess, manipulate, and support vital organ system failure and/or to prevent further life threatening deterioration of the patient's condition. The time involved in the performance of separately reportable procedures was not counted toward critical care time.
[2018-11-01] MEDS ORDERED: SODIUM CHLORIDE/NAHCO3/KCL/PEG 4,000 ML SOLN.RECON PO ONE (17:00)
[2018-11-01 17:05] LABS: Basophils # 0.1 K/mcL (0.0-0.2); Basophils % 0.8 %; Eosinophils # 0.7 K/mcL (0.0-0.6); Eosinophils % 8.6 %; Hematocrit 24.3 % (35.3-44.9); Hemoglobin 7.7 g/dL (11.5-15.4); Immature Granulocytes % 0.6 % (0-4); Lymphocytes # 1.5 K/mcL (0.6-4.6); Lymphocytes % 17.9 %; Mean Corpuscular HGB Conc 31.7 g/dL (31.6-35.5); Mean Corpuscular Hemoglobin 27.3 pg (28.0-33.3); Mean Corpuscular Volume 86.2 fL (83.0-100.0); Mean Platelet Volume 11.6 fL (9.4-12.4); Monocytes # 0.7 K/mcL (0.0-1.3); Monocytes % 7.8 %; Neutrophils # 5.4 K/mcL (1.6-8.9); Platelet Count 202 K/mcL (140-400); Red Blood Count 2.82 M/mcL (3.82-4.97); Red Cell Distribution Width 17.7 % (11.5-14.5); Segmented Neutrophils % 64.3 %
[2018-11-01 17:20] LABS: Alanine Aminotransferase 19 Units/L (7-52); Albumin 1.7 g/dL (3.5-5.7); Albumin/Globulin Ratio 0.5 (1.1-2.2); Alkaline Phosphatase 189 Units/L (34-104); Aspartate Amino Transferase 71 Units/L (13-39); BUN/Creatinine Ratio 42 (6-26); Bilirubin,Direct 0.3 mg/dL (0.0-0.2); Bilirubin,Indirect 0.4 mg/dL (0.0-1.2); Bilirubin,Total 0.7 mg/dL (0.3-1.0); Blood Urea Nitrogen 61 mg/dL (8-23); Calcium 8.2 mg/dL (8.6-10.3); Carbon Dioxide 21 mEq/L (23-29); Chloride 109 mEq/L (98-107); Globulin 3.3 g/dL (2.4-3.5); Glucose 116 mg/dL (70-105); Osmolality,Calculated 308 (280-300); Phosphorous 4.7 mg/dL (2.7-4.5); Potassium 3.8 mEq/L (3.5-5.1); Sodium 140 mEq/L (136-145); eGFR For Non-African Americans 37 (> 60)
[2018-11-01 17:21] LABS: Troponin I < 0.03 ng/mL (< 0.04)
[2018-11-01 17:37] LABS: Ferritin 70 ng/mL (10-120)
[2018-11-01 18:08] LABS: Hepatitis B Surface Antigen Nonreactive (Nonreactive)
[2018-11-01 18:36] LABS: Hepatitis C Virus Antibody Nonreactive (Nonreactive)
[2018-11-01 18:39] LABS: Hepatitis B Core IgM Nonreactive (Nonreactive)
[2018-11-01 18:41] LABS: Hepatitis A Antibody IgM Nonreactive (Nonreactive)
[2018-11-01] MEDS: Leptospermum Honey Gel 44 ML TUBE TP SCH (21:40)
[2018-11-02 04:47] LABS: Calcium 8.4 mg/dL (8.6-10.3); Magnesium 2.1 mg/dL (1.6-2.6); Phosphorous 4.8 mg/dL (2.7-4.5); Potassium 4.1 mEq/L (3.5-5.1)
--- NOTE | 2018-11-02 07:52 | Pulmonology Progress Note ---
<NolanBryan S - Last Filed: 11/02/18 07:52> Date of Encounter: 11/02/18 Time of Encounter: 07:52 Assessment and Plan (1) Somnolence Current Visit: Yes Status: Acute Pt with increasing somnolence of unknown etiology, consulted 11/01 for AMS and bradycardia - much more responsive today, responds to simple questions ABG 11/01/18: pH 7.33, pCO2 40, pO2 112, HCO3 [address] negative for acute abnormality Lactic acid 0.8 LFTs: AST 71, ALT 19, ammonia 74 Plan: - holding pregabalin - continue BiPAP hs and prn - continue accuchecks - largely has resolved, pt stable at this time from a critical care point of view pulmonology will sign off at this time, please re-consult as needed (2) Bradycardia Current Visit: Yes Status: Acute Pt noted to be bradycardic today by primary - cardiology saw the patient and d/c amiodarone Magnesium 2.0, phsphorus 4.5, potassium 3.9 TSH 7.141 Plan: - continue to d/c lopressor and amiodarone - sq glucagon as per primary - continue telemetry monitoring - hold AV julian blockers - continue BiPAP (3) Sepsis Current Visit: Yes Status: Resolved Pt did meet sepsis on admission for WBC count and fever of 101.1 - source of infxn urine vs chronic sacral decubitus ulcer - lactic acid on admission 1.8 ---> 0.8 Today pt WBC count is WNL, pt has HR 57, RR 16 10/27: blood cx grew g(+) rods 10/27: wound cx grew enterococcus faecalis resistant to tetracycline CT scan from 10/27 - Cellulitis with edema and gas pockets in subcutaneous tissues overlying the coccyx. Defect in overlying skin represents area of ulcer. Developing abscess not excluded. No drainable fluid collection. No CT evidence for osteomyelitis - Along the inferior aspect of the left buttock there is asymmetric skin thickening and subcutaneous tissue infiltration which could represent a focus of cellulitis. Serology panel negative Plan: - continue vancomycin and ertampenem, as per ID recommendations ertapenem until 11/10/18, potentially 11/24/18 six weeks total IV vancomycin - continue contact precautions - blood cx pending from 10/31 - surgery following for sacral decubitus ulcer (4) Decubitus ulcer, infected Current Visit: Yes Status: Acute See plan as above for sepsis. (5) Paroxysmal A-fib Current Visit: Yes Status: Acute Chronic. Management per primary (6) Morbid obesity Current Visit: No Status: Chronic BMI 42 - chronic (7) Hypertension Current Visit: No Status: Chronic Chronic - continue home meds as per primary (8) Chronic ulcer of sacral region with necrosis of muscle Current Visit: Yes Status: Acute See above. (9) DVT prophylaxis Current Visit: Yes Status: Acute scd (10) Chronic anemia Current Visit: Yes Status: Chronic Patient with hemoglobin of 7.6 - anemia appears chronic, basleine around 7-9 FOBT (-), repeat FOBT (+) Plan: - ferrous sulfate daily - GI consulted - CLD for EGD/colonoscopy tomorrow - pt to get 1 u pRBC today (11) Acute and chronic respiratory failure with hypoxia Current Visit: Yes Status: Acute See above for somnolence - continue BiPAP (12) CHF (congestive heart failure) Current Visit: No Status: Chronic NOT in acute exacerbation Last ECHO 07/2018 Impressions: LVEF 65-70%. Mild concentric left ventricular hypertrophy. Mild left ventricular diastolic dysfunction. Normal right ventricular structure and function. Severely dilated left atrium. Mildly dilated right atrium. Mild mitral stenosis. Severe pulmonary hypertension. Plan: - lasix currently held due to hypotension - strict I&O - fluid restriction 1.5 L (13) CKD (chronic kidney disease) stage 3, GFR 30-59 ml/min Current Visit: No Status: Chronic chronic. (14) COPD (chronic obstructive pulmonary disease) Current Visit: No Status: Chronic Continue bronchodilators as needed, symbicort, singular. [place] incentve spirometry. (15) Hypothyroidism Current Visit: No Status: Chronic Chronic. on synthroid Subjective Principal diagnosis: bradycardia, AMS Interval history: Pt is seen at bedside by myself and Dr. Vieyra. She is doing much better today. No acute overnight events. She denies any acute complaints or concerns. Objective PUL Vital signs: Last Vital Signs Temp 98.1 F 11/02/18 07:48 Pulse 57 11/02/18 07:48 Resp 19 11/02/18 07:48 BP 103/40 11/02/18 07:48 Pulse Ox 96 11/02/18 07:48 General appearance: lethargic Eyes: nonicteric ENT: oropharynx moist Effort: normal Auscultation: bilateral: diminished breath sounds Cardiovascular: other (bradycardia) Gastrointestinal: soft, non-tender, other (morbid obesity) Integumentary: normal Extremities: edema non-focal exam mood appropriate, affect normal Results - Laboratory Findings CBC and BMP: 11/01/18 16:35 11/02/18 03:10 ABG ABG pH 7.33 pH Units (7.32-7.45) 11/01/18 11:17 ABG pCO2 40 mmHg (35-45) 11/01/18 11:17 ABG pO2 112 mmHg (85-104) H 11/01/18 11:17 ABG O2 Saturation 98 % (95-98) 11/01/18 11:17 PT/INR, D-dimer PT 17.2 Seconds (9.4-12.1) H 10/28/18 03:30 Abnormal lab findings: Abnormal lab results RBC 2.82 M/mcL (3.82-4.97) L 11/01/18 16:35 Hgb 7.7 g/dL (11.5-15.4) L 11/01/18 16:35 Hct 24.3 % (35.3-44.9) L 11/01/18 16:35 MCH 27.3 pg (28.0-33.3) L 11/01/18 16:35 RDW 17.7 % (11.5-14.5) H 11/01/18 16:35 Eosinophils # 0.7 K/mcL (0.0-0.6) H 11/01/18 16:35 ESR 61 mm/hr (0-15) H 10/27/18 08:22 PT 17.2 Seconds (9.4-12.1) H 10/28/18 03:30 APTT 36.9 Seconds (26.0-36.0) H 10/27/18 03:35 ABG pO2 112 mmHg (85-104) H 11/01/18 11:17 ABG Base Excess -4 mEq/L (-2 to 3) L 11/01/18 11:17 Chloride 113 mEq/L (98-107) H 11/02/18 03:10 Carbon Dioxide 16 mEq/L (23-29) L 11/02/18 03:10 BUN 60 mg/dL (8-23) H 11/02/18 03:10 Creatinine 1.43 mg/dL (0.60-1.20) H 11/02/18 03:10 Est GFR ( Amer) 45 (> 60) L 11/02/18 03:10 Est GFR (Non-Af Amer) 37 (> 60) L 11/02/18 03:10 BUN/Creatinine Ratio 42 (6-26) H 11/02/18 03:10 POC Glucose 101 mg/dL (70-99) H 11/02/18 01:22 Calculated Osmolality 304 (280-300) H 11/02/18 03:10 Calcium 8.4 mg/dL (8.6-10.3) L 11/02/18 03:10 Phosphorus 4.8 mg/dL (2.7-4.5) H 11/02/18 03:10 Direct Bilirubin 0.3 mg/dL (0.0-0.2) H 11/01/18 16:35 AST 71 Units/L (13-39) H 11/01/18 16:35 Alkaline Phosphatase 189 Units/L (34-104) H 11/01/18 16:35 Ammonia 74 mcmol/L (16-53) H 11/01/18 16:35 Serum Total Protein 5.0 g/dL (6.4-8.9) L 11/01/18 16:35 Albumin 1.7 g/dL (3.5-5.7) L 11/01/18 16:35 Albumin/Globulin Ratio 0.5 (1.1-2.2) L 11/01/18 16:35 TSH 7.141 mcIU/mL (0.340-5.600) H 11/02/18 03:10 Urine Clarity Turbid (Clear) A 10/27/18 03:48 Urine Blood Moderate (Negative) H 10/27/18 03:48 Urine Bilirubin Small (Negative) H 10/27/18 03:48 Ur Leukocyte Esterase Large (Negative) H 10/27/18 03:48 Urine Microscopic WBC TNTC per hpf (0-3) H 10/27/18 03:48 Ur Squamous Epith Cells Many per lpf (None-Few) H 10/27/18 03:48 Urine Yeast Many per hpf (None Seen) H 10/27/18 03:48 Ur Culture Indicated? NO. (NO) A 10/27/18 03:48 Stool Occult Blood Positive (Negative) A 11/01/18 11:28 Vancomycin Trough 29 mcg/mL (5-10) H 11/01/18 08:05 - Microbiology Findings Microbiology Findings: Microbiology, Last 48 Hours 10/27/18 11:25 Blood Culture - Final Peripheral Venipuncture No growth. Final report. 10/27/18 11:38 Anaerobic Culture - Preliminary Other-Specify in Comments At this time, no anaerobic growth is present. The culture will be finalized after 5 days of incubation. 10/27/18 08:22 Blood Culture - Final Peripheral Venipuncture No growth. Final report. 10/27/18 08:15 Blood Culture - Final Peripheral Venipuncture No growth. Final report. 10/31/18 14:32 Blood Culture - Preliminary Peripheral Venipuncture Culture is incubating and being continuously monitored for growth. Final report to follow. 10/31/18 14:32 Blood Culture - Preliminary Peripheral Venipuncture Culture is incubating and being continuously monitored for growth. Final report to follow. 10/27/18 03:35 Blood Culture - Preliminary Peripheral Venipuncture Gram Positive Rods Gram Positive Rods#2 10/27/18 11:38 Wound Culture - Final Other-Specify in Comments Enterococcus faecalis - Clinical Findings Intake & Output: Intake & Output 11/01/18 11/01/18 11/02/18 15:59 23:59 07:59 Intake Total 1000 / 1000 100 / 100 237 / 237 Output Total 650 / 650 230 / 230 Balance 1000 / 1000 -550 / -550 7 / 7 Weight 115.6 kg Consult Discharge Plan - Plan Referrals: Lang Jarvis DO [Primary Care Provider] - (Patient will be going to SNF) <Felicita Vieyra - Last Filed: 11/02/18 16:35> Date of Encounter: 11/02/18 Objective PUL Vital signs: Last Vital Signs Temp 98.4 F 11/02/18 11:14 Pulse 56 11/02/18 14:13 Resp 16 11/02/18 14:13 BP 121/67 11/02/18 14:13 Pulse Ox 97 11/02/18 14:13 Results - Laboratory Findings CBC and BMP: 11/01/18 16:35 11/02/18 03:10 ABG ABG pH 7.33 pH Units (7.32-7.45) 11/01/18 11:17 ABG pCO2 40 mmHg (35-45) 11/01/18 11:17 ABG pO2 112 mmHg (85-104) H 11/01/18 11:17 ABG O2 Saturation 98 % (95-98) 11/01/18 11:17 PT/INR, D-dimer PT 17.2 Seconds (9.4-12.1) H 10/28/18 03:30 Abnormal lab findings: Abnormal lab results RBC 2.82 M/mcL (3.82-4.97) L 11/01/18 16:35 Hgb 7.7 g/dL (11.5-15.4) L 11/01/18 16:35 Hct 24.3 % (35.3-44.9) L 11/01/18 16:35 MCH 27.3 pg (28.0-33.3) L 11/01/18 16:35 RDW 17.7 % (11.5-14.5) H 11/01/18 16:35 Eosinophils # 0.7 K/mcL (0.0-0.6) H 11/01/18 16:35 ESR 61 mm/hr (0-15) H 10/27/18 08:22 PT 17.2 Seconds (9.4-12.1) H 10/28/18 03:30 APTT 36.9 Seconds (26.0-36.0) H 10/27/18 03:35 ABG pO2 112 mmHg (85-104) H 11/01/18 11:17 ABG Base Excess -4 mEq/L (-2 to 3) L 11/01/18 11:17 Chloride 113 mEq/L (98-107) H 11/02/18 03:10 Carbon Dioxide 16 mEq/L (23-29) L 11/02/18 03:10 BUN 60 mg/dL (8-23) H 11/02/18 03:10 Creatinine 1.43 mg/dL (0.60-1.20) H 11/02/18 03:10 Est GFR ( Amer) 45 (> 60) L 11/02/18 03:10 Est GFR (Non-Af Amer) 37 (> 60) L 11/02/18 03:10 BUN/Creatinine Ratio 42 (6-26) H 11/02/18 03:10 Calculated Osmolality 304 (280-300) H 11/02/18 03:10 Calcium 8.4 mg/dL (8.6-10.3) L 11/02/18 03:10 Phosphorus 4.8 mg/dL (2.7-4.5) H 11/02/18 03:10 Direct Bilirubin 0.3 mg/dL (0.0-0.2) H 11/01/18 16:35 AST 71 Units/L (13-39) H 11/01/18 16:35 Alkaline Phosphatase 189 Units/L (34-104) H 11/01/18 16:35 Ammonia 74 mcmol/L (16-53) H 11/01/18 16:35 Serum Total Protein 5.0 g/dL (6.4-8.9) L 11/01/18 16:35 Albumin 1.7 g/dL (3.5-5.7) L 11/01/18 16:35 Albumin/Globulin Ratio 0.5 (1.1-2.2) L 11/01/18 16:35 TSH 7.141 mcIU/mL (0.340-5.600) H 11/02/18 03:10 Urine Clarity Turbid (Clear) A 10/27/18 03:48 Urine Blood Moderate (Negative) H 10/27/18 03:48 Urine Bilirubin Small (Negative) H 10/27/18 03:48 Ur Leukocyte Esterase Large (Negative) H 10/27/18 03:48 Urine Microscopic WBC TNTC per hpf (0-3) H 10/27/18 03:48 Ur Squamous Epith Cells Many per lpf (None-Few) H 10/27/18 03:48 Urine Yeast Many per hpf (None Seen) H 10/27/18 03:48 Ur Culture Indicated? NO. (NO) A 10/27/18 03:48 Stool Occult Blood Positive (Negative) A 11/01/18 11:28 Vancomycin Trough 29 mcg/mL (5-10) H 11/01/18 08:05 - Microbiology Findings Microbiology Findings: Microbiology, Last 48 Hours 10/27/18 11:25 Blood Culture - Final Peripheral Venipuncture No growth. Final report. 10/27/18 11:38 Anaerobic Culture - Preliminary Other-Specify in Comments At this time, no anaerobic growth is present. The culture will be finalized after 5 days of incubation. 10/27/18 08:22 Blood Culture - Final Peripheral Venipuncture No growth. Final report. 10/27/18 08:15 Blood Culture - Final Peripheral Venipuncture No growth. Final report. 10/31/18 14:32 Blood Culture - Preliminary Peripheral Venipuncture Culture is incubating and being continuously monitored for growth. Final report to follow. 10/31/18 14:32 Blood Culture - Preliminary Peripheral Venipuncture Culture is incubating and being continuously monitored for growth. Final report to follow. - Clinical Findings Intake & Output: Intake & Output 11/02/18 11/02/18 11/02/18 07:59 15:59 23:59 Intake Total 237 / 237 Output Total 230 / 230 150 / 150 Balance -150 / -150 Weight 115.6 kg - Attending Attestation I examined this patient and my medical decision-making was reviewed with the Resident Physician. I agree with the documented findings, disposition and treatment plan as described except to the extent set forth below. Patient seen and examined. Labs, radiology, chart personally reviewed. Agree with resident's history and physical, assessment, plan with following comments: DENTAL ASSISTANT: Patient follows commands, patient is much more awake at this time and continue supportive care. Pulmonary: Acceptable oxygenation and ventilation. Advised nursing staff to have noninvasive ventilation on her even during daytime when necessary. Patient use it at night. Cardiovascular: stable and there is improvement in her bradycardia. I will be very careful using any beta blockers. Please call for any questions.
--- NOTE | 2018-11-02 07:53 | Internal Med Progress Note ---
Hospitalist Progress Note - Encounter Date of Encounter: 11/02/18 Time of Encounter: 07:50 - Subjective Interval History: 63 year old female history of atrial fibrillation not on anticoagulation, heart failure preserved EF 6065%, pulmonary hypertension, COPD, obesity, OLIVER and chronic sacral ulcer presented to the emergency department from assisted w ith complaint of fever. As per patient she started feeling warm and more weak than her baseline the day before admission which progressively worsened throughout the day - Exam Vitals: Temp Pulse Resp BP Pulse Ox 98.1 F 57 19 103/40 96 11/02/18 07:48 11/02/18 07:48 11/02/18 07:48 11/02/18 07:48 11/02/18 07:48 Exam: Vitals: Reviewed. General: Alert and oriented x3, but somnolent Cardiovascular: RRR, normal S1 & S2, no rubs, murmurs or gallops. Lungs: CTA b/l, no wheezes or crackles. Abdomen: Obese, soft, non-tender, no rigidity. NABS in all 4 quadrants Extremities: stage IV sacral decubitus ulcer, decibitus ulcer on the right heel. 2+ edema in the lower extr b/l. Neurological: Normal cognition Rest of the physical exam is non contributory - Assessment and Plan (1) Sepsis Current Visit: Yes Status: Acute Assessment and Plan: Likely secondary to infected sacral ulcer. Wound cultures growing gram positive rods and enterococcus will continue ertapenem and vancomycin per ID recommendations. Duration per ID (2) COPD (chronic obstructive pulmonary disease) Current Visit: Yes Status: Chronic Assessment and Plan: not on acute exacerbation. chest is clear to auscultation. on bronchodilators PRN. continue symbicort (3) CAD (coronary artery disease) Current Visit: Yes Status: Chronic Assessment and Plan: on Aspirin 81mg/PO daily (4) DM (diabetes mellitus), type 2 Current Visit: Yes Status: Chronic Assessment and Plan: on a clear liquid diet. decrease levemir to 5 units HS, to avoid hypoglycemia (5) Paroxysmal a-fib Current Visit: Yes Status: Acute Assessment and Plan: patient bradycardic. HR in the 50s. Hold amiodarone and metoprolol today. on aspirin for secondary stroke prevention. patient given 2mg of glucagon on 2 different doses atropine 0.25mg/IV once Hold AV julian blockers. cardiology following (6) HTN (hypertension) Current Visit: Yes Status: Chronic Assessment and Plan: hold antihypertensive medications. Monitor BP (7) CHF (congestive heart failure) Current Visit: Yes Status: Chronic Assessment and Plan: patient in no exacerbation. furosemide held due to BP running in the low side. strict intake and output. fluids restriction to 1.5 litters a day. (8) OLIVER (obstructive sleep apnea) Current Visit: Yes Status: Chronic Assessment and Plan: patient on Bipap (9) Morbidly obese Current Visit: Yes Status: Chronic Assessment and Plan: Nutrition consult (10) Cirrhosis Current Visit: Yes Status: Chronic Assessment and Plan: Outpatient follow-up (11) Acute renal failure superimposed on stage 3 chronic kidney disease Current Visit: Yes Status: Chronic Assessment and Plan: slightly worsening kidney function. consider nephrology consult if kidney function continues to worsen. nephro protective strategies (12) Sacral decubitus ulcer, stage IV Current Visit: Yes Status: Chronic Assessment and Plan: wound vac per surgery recommendations. on broad spectrum antibiotics (13) Chronic anemia Current Visit: Yes Status: Chronic Assessment and Plan: worsening anemia today. FOBT negative 2 days ago. will repeat test. on ferrous sulfate 325mg/PO daily. GI consulted for anemia work-up. will transfuse 1 unit of PRBCs check CBC one hour post transfusion. on clears liquid diet, scheduled for EGD and colonoscopy tomorrow. (14) Hypothyroidism Current Visit: Yes Status: Chronic Assessment and Plan: on levothyroxine 75mcg/po daily DVT Prophylaxis: Intermittent pneumatic compression for DVT prophylaxis No chemical DVT prophylaxis due to worsening anemia - Time Spent with Patient Total time spent is greater than 50% in coordination of care (as documented) at patient's floor/unit and/or counseling patient: Internal Medicine: Result - Labs CBC & Chem 7: 11/01/18 16:35 11/02/18 03:10 Labs: Short CBC 11/01/18 Range/Units 16:35 WBC 8.4 (4.3-11.1) K/mcL Hgb 7.7 L (11.5-15.4) g/dL Hct 24.3 L (35.3-44.9) % Plt Count 202 (140-400) K/mcL Neutrophils # 5.4 (1.6-8.9) K/mcL BMP 11/01/18 11/02/18 16:35 03:10 Sodium 140 139 Potassium 3.8 4.1 Chloride 109 H 113 H Carbon Dioxide 21 L 16 L BUN 61 H 60 H Creatinine 1.44 H 1.43 H Glucose 116 H 75 Calcium 8.2 L 8.4 L Cardiac Enzymes 11/01/18 Range/Units 16:35 Troponin I < 0.03 (< 0.04) ng/mL Liver Function 11/01/18 Range/Units 16:35 Total Bilirubin 0.7 (0.3-1.0) mg/dL Direct Bilirubin 0.3 H (0.0-0.2) mg/dL AST 71 H (13-39) Units/L ALT 19 (7-52) Units/L Alkaline Phosphatase 189 H (34-104) Units/L Albumin 1.7 L (3.5-5.7) g/dL - ABG Interpretation ABG results: ABG ABG pH 7.33 pH Units (7.32-7.45) 11/01/18 11:17 ABG pCO2 40 mmHg (35-45) 11/01/18 11:17 ABG pO2 112 mmHg (85-104) H 11/01/18 11:17 ABG O2 Saturation 98 % (95-98) 11/01/18 11:17 PT/INR, D-dimer PT 17.2 Seconds (9.4-12.1) H 10/28/18 03:30 - Impressions Impressions Head CT 11/01/18 12:20 IMPRESSION: No intracranial abnormality. Frothy fluid in the sphenoid sinus. Correlation for acute sinusitis. Complete opacification of the mastoid air cells bilaterally. D/ / Phyllis Castrejon Cha, MD / Phyllis Castrejon Cha, MD Interpreting Provider: Phyllis Castrejon Cha, MD Consult Discharge Plan - Plan Referrals: Lang Jarvis DO [Primary Care Provider] - (Patient will be going to SNF) (1) Sepsis Qualifiers: Sepsis type: sepsis due to unspecified organism Qualified Code(s): A41.9 - Sepsis, unspecified organism (2) COPD (chronic obstructive pulmonary disease) Qualifiers: COPD type: unspecified COPD Qualified Code(s): J44.9 - Chronic obstructive pulmonary disease, unspecified (3) CAD (coronary artery disease) Qualifiers: Coronary Disease-Associated Artery/Lesion type: [place] artery [place] vs. transplanted heart: k[place] heart Associated angina: without angina Qualified Code(s): I25.10 - Atherosclerotic heart disease of [place] coronary artery without angina pectoris (4) DM (diabetes mellitus), type 2 Qualifiers: Diabetes mellitus exterminator helper insulin use: with exterminator helper use Diabetes mellitus complication status: with kidney complications Diabetes mellitus complication detail: with chronic kidney disease Chronic kidney disease stage: stage 3 (moderate) Qualified Code(s): E11.22 - Type 2 diabetes mellitus with diabetic chronic kidney disease; N18.3 - Chronic kidney disease, stage 3 (moderate); Z79.4 - predatory animal exterminator (current) use of insulin (6) HTN (hypertension) Qualifiers: Hypertension type: essential hypertension Qualified Code(s): I10 - Essential (primary) hypertension (10) Cirrhosis Qualifiers: Hepatic cirrhosis type: other cirrhosis Qualified Code(s): K74.69 - Other cirrhosis of liver (11) Acute renal failure superimposed on stage 3 chronic kidney disease Qualifiers: Acute renal failure type: unspecified Qualified Code(s): N17.9 - Acute kidney failure, unspecified; N18.3 - Chronic kidney disease, stage 3 (moderate) (14) Hypothyroidism Qualifiers: Hypothyroidism type: unspecified Qualified Code(s): E03.9 - Hypothyroidism, unspecified
[2018-11-02] MEDS: Budesonide/Formoterol 160/4.5 1 PUFF INH IH SCH ×2 (08:00→20:16)
[2018-11-02] MEDS: Insulin LISPRO 300 UNITS/3 ML VIAL SQ SCH ×3 (09:16→17:47)
--- NOTE | 2018-11-02 10:26 | Infectious Disease Progress No ---
Date of Encounter: 11/02/18 Time of Encounter: 09:00 - Assessment and Plan (1) Sepsis Current Visit: Yes Status: Acute Severe sepsis: The patient had 2 sepsis criteria plus acute kidney injury on admission. Likely secondary to decubitus ulcer infection vs. UTI vs. other. White blood cell count normal. Afebrile overnight. The cultures drawn sets are positive 1/4 sets for GPR x 2. The one that is positive appears to have been drawn by an RN, which makes me suspicious that it was drawn from the PICC line. Repeat blood cultures drawn 10/31/18 (peripherally) are NGTD x 2 sets. Recommendations: Await final ID and sensitivities on initial blood cultures. Await repeat blood cultures. Wound care per surgery team recommendations. Aggressive offloading and wound care per nursing. Recommend ENT to evaluate for possible mastoiditis. Continue Ertapenem 1 gram IV daily. Continue vancomycin IV. Pharmacy to dose. Goal trough approximately 15. Duration of treatment depends on the clinical picture. The patient was due to complete 6 weeks of IV Ertapenem on 11/10/18, but will likely need to extend for an additional two weeks through 11/24/18. Will likely need a total of 6 weeks of IV Vancomycin as well. Monitor renal function for drug toxicity and dose adjust antibiotics. Contact precautions per policy. child protective services social worker to assist with discharge planning. Qualifiers: Sepsis type: sepsis due to unspecified organism Qualified Code(s): A41.9 - Sepsis, unspecified organism (2) Bacteremia Current Visit: Yes Status: Resolved Causative organism: GPR x 2. Blood culture drawn 10/27/18 1/4 sets is positive. It appears the one that is positive was drawn by a nurse which makes me highly suspicious that this was the one drawn from the PICC line. Contaminant vs. true infection--> most likely a contaminant. Patient clinically improved. May consider removing PICC line and replacing, but will await final ID. Currently on Vanc and Ertapenem. (3) Decubitus ulcer, infected Current Visit: Yes Status: Acute Location: Sacral wound. Causative organism: E. faecalis, AmpS. Previous cultures positive for P. mirabilis and E. coli ESBL per [facility] bone cultures. The patient originally told her she was diagnosed with osteomyelitis at [place], but further review of the records indicates that she was diagnosed with osteomyelitis of the sacrum in September 2018 at [facility]. The cultures indicate Proteus and ESBL Escherichia coli from the sacrum bone, as well as anaerobes. She was discharged back to the [facility] with plans to complete a 6 week course (through 11/10/18) and instructions to follow up with [facility] infectious disease. CT of the abdomen and pelvis showed cellulitis with gas and an abscess could not be excluded. Concerned that the patient has chronically loose stools from her lactulose that is likely contaminating the wound constantly since she is unable to get out of bed to defecate. ESR and CRP elevated. General surgery consulted. No surgical intervention warranted at this time. Currently on Vanc and Ertapenem. Qualifiers: Pressure injury stage: stage 4 Qualified Code(s): L89.94 - Pressure ulcer of unspecified site, stage 4; L08.9 - Local infection of the skin and subcutaneous tissue, unspecified (4) Cellulitis Current Visit: No Status: Chronic Location: Sacrum. Likely secondary to sacral wound infection. Causative organism: E. faecalis. Currently on IV Vanc and Ertapenem. Qualifiers: Site of cellulitis: extremity Site of cellulitis of extremity: lower extremity Laterality: unspecified laterality Qualified Code(s): L03.119 - Cellulitis of unspecified part of limb (5) Somnolence Current Visit: Yes Status: Acute Likely multifactorial: hyperammonemia + bradycardia. Improved. CT head negative. Continue to monitor closely. (6) Bradycardia Current Visit: Yes Status: Acute Likely multifactorial: hypothyroid + medications. Improved. Cardiology consulted. (7) History of allergy to multiple drugs Current Visit: No Status: Chronic The patient has multiple allergies which compensates and limits our ability in selecting antibiotic therapy. Cipro-anaphylaxis Biaxin-hives Levaquin-anaphylaxis Bactrim-hives Cefaclor-anaphylaxis (8) BRADFORD (nonalcoholic steatohepatitis) Current Visit: No Status: Chronic The patient states she follows with a process stripper up in [place]. Acute hepatitis profile negative. MELD score 17. (9) OLIVER (obstructive sleep apnea) Current Visit: Yes Status: Chronic (10) PAD (peripheral artery disease) Current Visit: No Status: Chronic (11) Pulmonary hypertension Current Visit: No Status: Chronic (12) Acute kidney injury superimposed on chronic kidney disease Current Visit: No Status: Resolved Likely secondary to sepsis and poor by mouth intake. Improved. Continue to trend. Avoid nephrotoxins and dose adjust antibiotics. (13) History of DVT of lower extremity Current Visit: No Status: Resolved (14) Atrial fibrillation Current Visit: No Status: Chronic Qualifiers: Atrial fibrillation type: chronic Qualified Code(s): I48.2 - Chronic atrial fibrillation (15) COPD (chronic obstructive pulmonary disease) Current Visit: No Status: Chronic Qualifiers: COPD type: unspecified COPD Qualified Code(s): J44.9 - Chronic obstructive pulmonary disease, unspecified (16) HLD (hyperlipidemia) Current Visit: No Status: Chronic Qualifiers: Hyperlipidemia type: pure hypercholesterolemia Qualified Code(s): E78.00 - Pure hypercholesterolemia, unspecified; E78.0 - Pure hypercholesterolemia (17) Morbidly obese Current Visit: Yes Status: Chronic (18) Diabetes mellitus Current Visit: No Status: Chronic Recommend strict glucose control. Qualifiers: Diabetes mellitus type: type 2 Diabetes mellitus mcfp insulin use: without mcfp use Diabetes mellitus complication status: with kidney complications Diabetes mellitus complication detail: with nephropathy Qualified Code(s): E11.21 - Type 2 diabetes mellitus with diabetic nephropathy (19) Mastoiditis Current Visit: Yes Status: Acute CT head shows opacification of the bilateral mastoid air cells. Patient reports chronic hearing loss in the right ear and decreased hearing in the left. Recommend ENT to evaluate. Qualifiers: Laterality: bilateral Qualified Code(s): H70.93 - Unspecified mastoiditis, bilateral - Subjective Interval history: Patient seen and examined. Yesterday's events noted. Patient states that she feels okay, better than yesterday. Denies fevers, chills, or rigors. Hypothermic yesterday, resolved. Denies chest pain. States her breathing is at baseline and she denies a cough. Denies nausea, vomiting or diarrhea. Denies abdominal pain or urinary complaints. Denies any oral thrush or new skin lesions. Complains of mild pain at the site of her sacral ulcer. States she feels a little confused today. Infect Dis PN-Objective Data - Labs CBC & Chem 7: 11/03/18 04:22 11/03/18 04:22 Labs: Laboratory Results - last 24 hr 10/30/18 11/01/18 11/01/18 17:22 06:41 11:17 WBC RBC Hgb Hct MCV MCH MCHC RDW Plt Count MPV Immature Gran % Seg Neutrophils % Lymphocytes % Monocytes % Eosinophils % Basophils % Neutrophils # Lymphocytes # Monocytes # Eosinophils # Basophils # Sample Site R Brach ABG pH 7.33 ABG pCO2 40 ABG pO2 112 H ABG HCO3 21 ABG Total CO2 23 ABG O2 Saturation 98 ABG Base Excess -4 L Mikhail Test Positive O2 Delivery Device BiPAP Inspired O2 40.0 Sodium Potassium Chloride Carbon Dioxide BUN Creatinine Est GFR ( Amer) Est GFR (Non-Af Amer) BUN/Creatinine Ratio Glucose POC Glucose 92 Calculated Osmolality Lactic Acid Calcium Phosphorus Magnesium Ferritin Total Bilirubin Direct Bilirubin Indirect Bilirubin AST ALT Alkaline Phosphatase Ammonia Troponin I Serum Total Protein Albumin Globulin Albumin/Globulin Ratio TSH Stool Occult Blood Random Vancomycin Hepatitis A IgM Ab Hep Bs Antigen Hep B Core IgM Ab Hepatitis C Ab Screen Blood Type O POSITIVE Antibody Screen NEGATIVE Crossmatch See Detail 11/01/18 11/01/18 11/01/18 11:28 11:40 14:31 WBC RBC Hgb Hct MCV MCH MCHC RDW Plt Count MPV Immature Gran % Seg Neutrophils % Lymphocytes % Monocytes % Eosinophils % Basophils % Neutrophils # Lymphocytes # Monocytes # Eosinophils # Basophils # Sample Site ABG pH ABG pCO2 ABG pO2 ABG HCO3 ABG Total CO2 ABG O2 Saturation ABG Base Excess Mikhail Test O2 Delivery Device Inspired O2 Sodium Potassium Chloride Carbon Dioxide BUN Creatinine Est GFR ( Amer) Est GFR (Non-Af Amer) BUN/Creatinine Ratio Glucose POC Glucose 86 91 Calculated Osmolality Lactic Acid Calcium Phosphorus Magnesium Ferritin Total Bilirubin Direct Bilirubin Indirect Bilirubin AST ALT Alkaline Phosphatase Ammonia Troponin I Serum Total Protein Albumin Globulin Albumin/Globulin Ratio TSH Stool Occult Blood Positive A Random Vancomycin Hepatitis A IgM Ab Hep Bs Antigen Hep B Core IgM Ab Hepatitis C Ab Screen Blood Type Antibody Screen Crossmatch 11/01/18 11/01/18 11/01/18 16:35 16:35 16:35 WBC 8.4 RBC 2.82 L Hgb 7.7 L Hct 24.3 L MCV 86.2 MCH 27.3 L MCHC 31.7 RDW 17.7 H Plt Count 202 MPV 11.6 Immature Gran % 0.6 Seg Neutrophils % 64.3 Lymphocytes % 17.9 Monocytes % 7.8 Eosinophils % 8.6 Basophils % 0.8 Neutrophils # 5.4 Lymphocytes # 1.5 Monocytes # 0.7 Eosinophils # 0.7 H Basophils # 0.1 Sample Site ABG pH ABG pCO2 ABG pO2 ABG HCO3 ABG Total CO2 ABG O2 Saturation ABG Base Excess Mikhail Test O2 Delivery Device Inspired O2 Sodium Potassium Chloride Carbon Dioxide BUN Creatinine Est GFR ( Amer) Est GFR (Non-Af Amer) BUN/Creatinine Ratio Glucose POC Glucose Calculated Osmolality Lactic Acid Calcium Phosphorus Magnesium Ferritin Total Bilirubin Direct Bilirubin Indirect Bilirubin AST ALT Alkaline Phosphatase Ammonia 74 H Troponin I Serum Total Protein Albumin Globulin Albumin/Globulin Ratio TSH Stool Occult Blood Random Vancomycin Hepatitis A IgM Ab Nonreactive Hep Bs Antigen Nonreactive Hep B Core IgM Ab Nonreactive Hepatitis C Ab Screen Nonreactive Blood Type Antibody Screen Crossmatch 11/01/18 11/01/18 11/01/18 16:35 16:35 17:29 WBC RBC Hgb Hct MCV MCH MCHC RDW Plt Count MPV Immature Gran % Seg Neutrophils % Lymphocytes % Monocytes % Eosinophils % Basophils % Neutrophils # Lymphocytes # Monocytes # Eosinophils # Basophils # Sample Site ABG pH ABG pCO2 ABG pO2 ABG HCO3 ABG Total CO2 ABG O2 Saturation ABG Base Excess Mikhail Test O2 Delivery Device Inspired O2 Sodium 140 Potassium 3.8 Chloride 109 H Carbon Dioxide 21 L BUN 61 H Creatinine 1.44 H Est GFR ( Amer) 45 L Est GFR (Non-Af Amer) 37 L BUN/Creatinine Ratio 42 H Glucose 116 H POC Glucose 81 Calculated Osmolality 308 H Lactic Acid 0.8 Calcium 8.2 L Phosphorus 4.7 H Magnesium 2.0 Ferritin 70 Total Bilirubin 0.7 Direct Bilirubin 0.3 H Indirect Bilirubin 0.4 AST 71 H ALT 19 Alkaline Phosphatase 189 H Ammonia Troponin I < 0.03 Serum Total Protein 5.0 L Albumin 1.7 L Globulin 3.3 Albumin/Globulin Ratio 0.5 L TSH Stool Occult Blood Random Vancomycin Hepatitis A IgM Ab Hep Bs Antigen Hep B Core IgM Ab Hepatitis C Ab Screen Blood Type Antibody Screen Crossmatch 11/02/18 11/02/18 11/02/18 00:33 01:22 03:10 WBC RBC Hgb Hct MCV MCH MCHC RDW Plt Count MPV Immature Gran % Seg Neutrophils % Lymphocytes % Monocytes % Eosinophils % Basophils % Neutrophils # Lymphocytes # Monocytes # Eosinophils # Basophils # Sample Site ABG pH ABG pCO2 ABG pO2 ABG HCO3 ABG Total CO2 ABG O2 Saturation ABG Base Excess Mikhail Test O2 Delivery Device Inspired O2 Sodium Potassium Chloride Carbon Dioxide BUN Creatinine Est GFR ( Amer) Est GFR (Non-Af Amer) BUN/Creatinine Ratio Glucose POC Glucose 67 L 101 H Calculated Osmolality Lactic Acid Calcium Phosphorus Magnesium Ferritin Total Bilirubin Direct Bilirubin Indirect Bilirubin AST ALT Alkaline Phosphatase Ammonia Troponin I Serum Total Protein Albumin Globulin Albumin/Globulin Ratio TSH Stool Occult Blood Random Vancomycin 27 Hepatitis A IgM Ab Hep Bs Antigen Hep B Core IgM Ab Hepatitis C Ab Screen Blood Type Antibody Screen Crossmatch 11/02/18 11/02/18 11/02/18 03:10 03:10 04:29 WBC RBC Hgb Hct MCV MCH MCHC RDW Plt Count MPV Immature Gran % Seg Neutrophils % Lymphocytes % Monocytes % Eosinophils % Basophils % Neutrophils # Lymphocytes # Monocytes # Eosinophils # Basophils # Sample Site ABG pH ABG pCO2 ABG pO2 ABG HCO3 ABG Total CO2 ABG O2 Saturation ABG Base Excess Mikhail Test O2 Delivery Device Inspired O2 Sodium 139 Potassium 4.1 Chloride 113 H Carbon Dioxide 16 L BUN 60 H Creatinine 1.43 H Est GFR ( Amer) 45 L Est GFR (Non-Af Amer) 37 L BUN/Creatinine Ratio 42 H Glucose 75 POC Glucose 72 Calculated Osmolality 304 H Lactic Acid Calcium 8.4 L Phosphorus 4.8 H Magnesium 2.1 Ferritin Total Bilirubin Direct Bilirubin Indirect Bilirubin AST ALT Alkaline Phosphatase Ammonia Troponin I Serum Total Protein Albumin Globulin Albumin/Globulin Ratio TSH 7.141 H Stool Occult Blood Random Vancomycin Hepatitis A IgM Ab Hep Bs Antigen Hep B Core IgM Ab Hepatitis C Ab Screen Blood Type Antibody Screen Crossmatch 11/02/18 11/02/18 05:55 07:46 WBC RBC Hgb Hct MCV MCH MCHC RDW Plt Count MPV Immature Gran % Seg Neutrophils % Lymphocytes % Monocytes % Eosinophils % Basophils % Neutrophils # Lymphocytes # Monocytes # Eosinophils # Basophils # Sample Site ABG pH ABG pCO2 ABG pO2 ABG HCO3 ABG Total CO2 ABG O2 Saturation ABG Base Excess Mikhail Test O2 Delivery Device Inspired O2 Sodium Potassium Chloride Carbon Dioxide BUN Creatinine Est GFR ( Amer) Est GFR (Non-Af Amer) BUN/Creatinine Ratio Glucose POC Glucose 79 93 Calculated Osmolality Lactic Acid Calcium Phosphorus Magnesium Ferritin Total Bilirubin Direct Bilirubin Indirect Bilirubin AST ALT Alkaline Phosphatase Ammonia Troponin I Serum Total Protein Albumin Globulin Albumin/Globulin Ratio TSH Stool Occult Blood Random Vancomycin Hepatitis A IgM Ab Hep Bs Antigen Hep B Core IgM Ab Hepatitis C Ab Screen Blood Type Antibody Screen Crossmatch Cultures: Cultures 10/27/18 11:25 Blood Culture - Final Peripheral Venipuncture No growth. Final report. 10/27/18 11:38 Anaerobic Culture - Preliminary Other-Specify in Comments At this time, no anaerobic growth is present. The culture will be finalized after 5 days of incubation. 10/27/18 08:22 Blood Culture - Final Peripheral Venipuncture No growth. Final report. 10/27/18 08:15 Blood Culture - Final Peripheral Venipuncture No growth. Final report. 10/31/18 14:32 Blood Culture - Preliminary Peripheral Venipuncture Culture is incubating and being continuously monitored for growth. Final report to follow. 10/31/18 14:32 Blood Culture - Preliminary Peripheral Venipuncture Culture is incubating and being continuously monitored for growth. Final report to follow. 10/27/18 03:35 Blood Culture - Preliminary Peripheral Venipuncture Gram Positive Rods Gram Positive Rods#2 10/27/18 11:38 Wound Culture - Final Other-Specify in Comments Enterococcus faecalis 10/27/18 03:52 Influenza Types A,B Antigen - Final Nasopharyngeal Serology 11/01/18 11/01/18 10/30/18 Range/Units 16:35 11:28 10:46 Urine Color (Yellow) Urine Clarity (Clear) Urine pH (5.0-8.0) pH Units Ur Specific [place] (1.010-1.025) Urine Protein (Neg-Trace) mg/dL Urine Glucose (UA) (Normal) mg/dL Urine Ketones (Negative) mg/dL Urine Blood (Negative) Urine Nitrite (Negative) Urine Bilirubin (Negative) Urine Urobilinogen (Normal) mg/dL Ur Leukocyte Esterase (Negative) Urine Microscopic RBC (0-3) per hpf Urine Microscopic WBC (0-3) per hpf Ur Squamous Epith Cells (None-Few) per lpf Urine Bacteria (None-Few) per hpf Hyaline Casts (None-Few) per lpf Urine Yeast (None Seen) per hpf Ur Culture Indicated? (NO) Nasal Screen MRSA (PCR) (Negative) Stool Occult Blood Positive A Negative (Negative) Chlamy pneumoniae PCR (Not Detect) Adenovirus (PCR) (Not Detect) B. pertussis DNA (PCR) (Not Detect) B.parapertussis DNA PCR (Not Detect) Coronavirus OC43 (PCR) (Not Detect) Coronavirus HKU1 (PCR) (Not Detect) Coronavirus 229E (PCR) (Not Detect) Coronavirus NL63 (PCR) (Not Detect) Hepatitis A IgM Ab Nonreactive (Nonreactive) Hep Bs Antigen Nonreactive (Nonreactive) Hep B Core IgM Ab Nonreactive (Nonreactive) Hepatitis C Ab Screen Nonreactive (Nonreactive) Human Metapneumovir PCR (Not Detect) Influenza A (H1) PCR (Not Detect) Influ A (H1N1/09) PCR (Not Detect) Influenza A (H3) PCR (Not Detect) Influenza A Untype (PCR) (Not Detect) Influenza Type B (PCR) (Not Detect) M.pneumoniae DNA (PCR) (Not Detect) Parainfluenza 1 (PCR) (Not Detect) Parainfluenza 2 (PCR) (Not Detect) Parainfluenza 3 (PCR) (Not Detect) Parainfluenza 4 (PCR) (Not Detect) RSV (PCR) (Not Detect) Entero/Rhino (PCR) (Not Detect) 10/28/18 10/27/18 10/27/18 Range/Units 11:00 20:10 03:48 Urine Color Dark Yellow (Yellow) Urine Clarity Turbid A (Clear) Urine pH 5.0 (5.0-8.0) pH Units Ur Specific [place] 1.024 (1.010-1.025) Urine Protein Trace (Neg-Trace) mg/dL Urine Glucose (UA) Normal (Normal) mg/dL Urine Ketones Negative (Negative) mg/dL Urine Blood Moderate H (Negative) Urine Nitrite Negative (Negative) Urine Bilirubin Small H (Negative) Urine Urobilinogen Normal (Normal) mg/dL Ur Leukocyte Esterase Large H (Negative) Urine Microscopic RBC 0-3 (0-3) per hpf Urine Microscopic WBC TNTC H (0-3) per hpf Ur Squamous Epith Cells Many H (None-Few) per lpf Urine Bacteria None Seen (None-Few) per hpf Hyaline Casts None Seen (None-Few) per lpf Urine Yeast Many H (None Seen) per hpf Ur Culture Indicated? NO. A (NO) Nasal Screen MRSA (PCR) Negative (Negative) Stool Occult Blood (Negative) Chlamy pneumoniae PCR Not Detected (Not Detect) Adenovirus (PCR) Not Detected (Not Detect) B. pertussis DNA (PCR) Not Detected (Not Detect) B.parapertussis DNA PCR Not Detected (Not Detect) Coronavirus OC43 (PCR) Not Detected (Not Detect) Coronavirus HKU1 (PCR) Not Detected (Not Detect) Coronavirus 229E (PCR) Not Detected (Not Detect) Coronavirus NL63 (PCR) Not Detected (Not Detect) Hepatitis A IgM Ab (Nonreactive) Hep Bs Antigen (Nonreactive) Hep B Core IgM Ab (Nonreactive) Hepatitis C Ab Screen (Nonreactive) Human Metapneumovir PCR Not Detected (Not Detect) Influenza A (H1) PCR Not Detected (Not Detect) Influ A (H1N1/09) PCR Not Detected (Not Detect) Influenza A (H3) PCR Not Detected (Not Detect) Influenza A Untype (PCR) Not Detected (Not Detect) Influenza Type B (PCR) Not Detected (Not Detect) M.pneumoniae DNA (PCR) Not Detected (Not Detect) Parainfluenza 1 (PCR) Not Detected (Not Detect) Parainfluenza 2 (PCR) Not Detected (Not Detect) Parainfluenza 3 (PCR) Not Detected (Not Detect) Parainfluenza 4 (PCR) Not Detected (Not Detect) RSV (PCR) Not Detected (Not Detect) Entero/Rhino (PCR) Not Detected (Not Detect) - Impressions Impressions Head CT 11/01/18 12:20 IMPRESSION: No intracranial abnormality. Frothy fluid in the sphenoid sinus. Correlation for acute sinusitis. Complete opacification of the mastoid air cells bilaterally. D/ / Phyllis Castrejon Cha, MD / Phyllis Castrejon Cha, MD Interpreting Provider: Phyllis Castrejon Cha, MD Exam - Constitutional Vitals: Temp Pulse Resp BP Pulse Ox 98.1 F 57 18 103/40 97 11/02/18 07:48 11/02/18 07:48 11/02/18 08:01 11/02/18 07:48 11/02/18 08:01 General appearance: cooperative, morbidly obese, no acute distress - Head Head exam: Present: atraumatic, normal inspection, normocephalic - Eye Eye exam: Present: EOMI, normal appearance, PERRL Pupils: Present: normal accommodation - ENT ENT exam: Present: mucous membranes moist - Neck Neck exam: Present: normal inspection - Respiratory Respiratory exam: Present: CTAB. Absent: rales, respiratory distress, rhonchi, wheezes - Cardiovascular Cardiovascular exam: Present: irregular rhythm, +S1, +S2. Absent: tachycardia - GI/Abdominal GI/Abdominal exam: Present: distended (obese), normal bowel sounds, soft. Absent: tenderness Additional comments: Tobin catheter noted to be draining clear yellow urine. - Extremities Exam Extremities exam: Present: normal inspection, pedal edema (1+ BLE). Absent: joint swelling, tenderness - Back Exam Additional comments: Sacral wound VAC dressing without leak with small amount of dark red sanguinous drainage noted in the canister. - Neurological Exam Neurological exam: Present: altered (Lethargic. Awakens easily, but difficult to maintain wakefulness during exam.), oriented X3, no focal deficits. Absent: strengths equal and symetr throughout (BLE weak, but symmetrical bilaterally.) - Psychiatric Psychiatric exam: Present: normal affect, normal mood - Skin Skin exam: Present: dry, intact, normal color, warm - Additional findings Additional findings: PICC line noted to the RUE with transparent dressing C/D/I. Consult Discharge Plan - Plan Referrals: Lang Jarvis DO [Primary Care Provider] - (Patient will be going to SNF) - Attending Attestation I have personally performed a face to face evaluation on this patient. I have reviewed and agree with the care plan. History and Exam by me shows: ssessment and plan: 1.sepsis 2.osteomyelitis of the decubitus area secondary to sore 3.multiple antibiotic allergies Wound care per surgery team recommendations. Aggressive offloading and wound care per nursing. Continue Ertapenem 1 gram IV daily. Continue vancomycin IV. Pharmacy to dose. Goal trough approximately 15. Duration of treatment depends on the clinical picture. The patient was due to complete 6 weeks of IV Ertapenem on 11/10/18, but will likely need to extend for an additional two weeks through 11/24/18. Will likely need a total of 6 weeks of IV Vancomycin as well. Monitor renal function for drug toxicity and dose adjust antibiotics.
--- NOTE | 2018-11-02 10:49 | Cardiology Progress Note ---
Date of Encounter: 11/02/18 Time of Encounter: 10:44 Assessment and Plan (1) Bradycardia Current Visit: No Status: Acute Stopped PO Amiodarone 200mg daily yesterday d/t HR 40s. BB discontinuedd/c'd months ago due to bradycardia, although still listed on home med list. Pt presented to ED with fever, since found to have sepsis, possible bacteremia, acute on chronic anemia. TTE 07/11/2018: LVEF 65-70%. Mild cLVH. Mild LVDD. Normal RV size and function. Severe LA enlargement. Mild MR. Severe phtn. K, Mag WNL. TSH checked--7.141--recommend correction per primary team. Avoid AV julian blockers. HR has improved. 12 hr tele AVG HR 54, lowest HR 40s. No indication for PPM at this time. Cardiology signing off. Reconsult PRN. Will coordinate outpt follow-up in 2-3 weeks. (2) CAD (coronary artery disease) Current Visit: Yes Status: Chronic CAD s/p BMS to OM1 (03/02/2016). Continue ASA and Statin. No BB due to bradycardia. Qualifiers: Coronary Disease-Associated Artery/Lesion type: [place] artery [place] vs. transplanted heart: [place] heart Associated angina: without angina Qualified Code(s): I25.10 - Atherosclerotic heart disease of [place] coronary artery without angina pectoris (3) Paroxysmal a-fib Current Visit: Yes Status: Chronic Known hx of PAF. Stopped Amiodarone yesterday given bradycardia. Not on AC d/t GI bleed hx and acute on chronic anemia--HGB 7.7, positive hemoccult. Continue ASA 81mg daily as tolerated. Discussion w patient/family: The assessment and plan as outlined above was discussed with the patient and/or family members who expressed understanding and agreement. All questions were answered. Thank you for involving us in the care of your patient. Please call with any questions. I will discuss all the above with Dr. Alex and make changes as necessary. Subjective Principal diagnosis: bradycardia, AMS Interval history: Pt sleeping, difficult to around. Amiodarone stopped yesterday. 12 hr tele AVG HR 54, lowest HR noted low 40s. TSH 7.141. Objective Vital Signs, Last 4 Hours Temp Pulse Resp BP Pulse Ox 11/02/18 08:01 18 97 11/02/18 07:48 98.1 F 57 19 103/40 96 Short CBC 11/01/18 Range/Units 16:35 WBC 8.4 (4.3-11.1) K/mcL Hgb 7.7 L (11.5-15.4) g/dL Hct 24.3 L (35.3-44.9) % Plt Count 202 (140-400) K/mcL Neutrophils # 5.4 (1.6-8.9) K/mcL BMP 11/02/18 11/01/18 Range/Units 03:10 16:35 Sodium 139 140 (136-145) mEq/L Potassium 4.1 3.8 (3.5-5.1) mEq/L Chloride 113 H 109 H (98-107) mEq/L Carbon Dioxide 16 L 21 L (23-29) mEq/L BUN 60 H 61 H (8-23) mg/dL Creatinine 1.43 H 1.44 H (0.60-1.20) mg/dL Glucose 75 116 H (70-105) mg/dL Calcium 8.4 L 8.2 L (8.6-10.3) mg/dL Cardiac Enzymes 11/01/18 Range/Units 16:35 Troponin I < 0.03 (< 0.04) ng/mL Liver Function 11/01/18 Range/Units 16:35 Total Bilirubin 0.7 (0.3-1.0) mg/dL Direct Bilirubin 0.3 H (0.0-0.2) mg/dL AST 71 H (13-39) Units/L ALT 19 (7-52) Units/L Alkaline Phosphatase 189 H (34-104) Units/L Albumin 1.7 L (3.5-5.7) g/dL Impressions Head CT 11/01/18 12:20 IMPRESSION: No intracranial abnormality. Frothy fluid in the sphenoid sinus. Correlation for acute sinusitis. Complete opacification of the mastoid air cells bilaterally. D/ / Phyllis Castrejon Cha, MD / Phyllis Castrejon Cha, MD Interpreting Provider: Phyllis Castrejon Cha, MD Active Medications Acetaminophen (Tylenol) 650 mg PO Q6HR PRN PRN Reason: Fever Stop: 04/29/19 15:24 Last Admin: 11/01/18 09:30 Dose: 650 mg Albuterol Sulfate (Albuterol Inhaler) 2 puff IH Q6H PRN PRN Reason: Shortness Of Breath/Wheezing Stop: 04/28/19 08:48 Aspirin (Aspirin Ec) 81 mg PO DAILY [facility] Stop: 04/28/19 09:01 Last Admin: 11/01/18 07:55 Dose: 81 mg Atorvastatin Calcium (Lipitor) 20 mg PO HS [facility] Stop: 04/28/19 21:01 Last Admin: 11/01/18 20:59 Dose: Not Given Bisacodyl (Dulcolax) 10 mg RC DAILY PRN PRN Reason: Constipation Stop: 04/28/19 08:48 Budesonide/Formoterol Fumarate (Symbicort) 2 puff IH BIDR [facility]; Protocol Stop: 04/28/19 10:01 Last Admin: 11/02/18 08:00 Dose: 2 puff Dextrose (Glucose Tablets) 28 gm PO ONCE PRN PRN Reason: Hypoglycemia Stop: 04/28/19 13:06 Dextrose (Glucose Tablets) 16 gm PO ONCE PRN PRN Reason: Hypoglycemia Stop: 04/28/19 13:06 Dextrose/Water (Dextrose 50% (Syg)) 25 ml IVP AD PRN PRN Reason: Hypoglycemia Stop: 04/28/19 13:06 Last Admin: 11/02/18 00:36 Dose: 25 ml Docusate Sodium (Colace) 100 mg PO BID PRN; Protocol PRN Reason: Constipation Stop: 04/28/19 08:48 Ferrous Sulfate (Ferrous Sulfate) 325 mg PO DAILY@1200 [facility] Stop: 04/28/19 12:01 Last Admin: 11/01/18 11:34 Dose: 325 mg Glucagon (Glucagen) 1 mg IM ONCE PRN PRN Reason: Hypoglycemia Stop: 04/28/19 13:06 Glucose (Gluctose) 15 gm PO ONCE PRN PRN Reason: Hypoglycemia Stop: 04/28/19 13:06 Glucose (Gluctose) 30 gm PO ONCE PRN PRN Reason: Hypoglycemia Stop: 04/28/19 13:06 Ertapenem 1,000 mg/ Sodium (Chloride) 100 mls @ 100 mls/hr IVPB DAILY [facility] Stop: 11/10/18 10:01 Last Infusion: 11/01/18 21:00 Dose: Infused Dextrose (Dextrose 5%) 1,000 mls @ 100 mls/hr IVC .Q10H PRN PRN Reason: HYPOGLYCEMIA Stop: 04/28/19 13:06 Vancomycin HCl 1 each/ Sodium (Chloride) 250 mls @ 167 mls/hr IVPB RPHPROT PRN; Protocol PRN Reason: Placeholder Stop: 05/03/19 11:01 Insulin Detemir (Levemir) 5 unit SQ [facility] Stop: 05/03/19 21:01 Last Admin: 11/01/18 21:00 Dose: Not Given Insulin Human Lispro (Humalog) 0 units SQ TIDAC [facility]; Protocol Stop: 04/28/19 16:31 Last Admin: 11/02/18 09:16 Dose: Not Given Lactulose (Lactulose) 30 gm PO BID [facility] Stop: 04/28/19 09:01 Last Admin: 11/01/18 20:59 Dose: Not Given Leptospermum Honey (Medihoney) 1 appl TP [facility] Stop: 04/28/19 21:01 Last Admin: 11/01/18 21:40 Dose: Not Given Levothyroxine Sodium (Synthroid) 75 mcg PO 0630 [facility] Stop: 04/29/19 06:31 Last Admin: 11/02/18 05:55 Dose: 75 mcg Loratadine (Claritin) 10 mg PO DAILY [facility]; Protocol Stop: 04/28/19 09:01 Last Admin: 11/01/18 07:56 Dose: 10 mg Montelukast Sodium (Singulair) 10 mg PO [facility] Stop: 04/28/19 21:01 Last Admin: 11/01/18 20:59 Dose: Not Given Multivitamins/Calcium (Thera M Plus) 1 tab PO DAILY [facility] Stop: 04/28/19 09:01 Last Admin: 11/01/18 07:56 Dose: 1 tab Naloxone HCl (Narcan) 0.4 mg IVP Q2M PRN PRN Reason: SEE COMMENTS Stop: 04/28/19 08:40 Omeprazole (Prilosec) 40 mg PO QPM [facility] Stop: 04/28/19 18:01 Last Admin: 11/01/18 18:10 Dose: Not Given Pregabalin (Lyrica) 75 mg PO TID [facility] Stop: 04/28/19 09:01 Last Admin: 11/01/18 07:56 Dose: 75 mg Vitamin D (Vitamin D) 1,000 unit PO DAILY [facility] Stop: 04/28/19 09:01 Last Admin: 11/01/18 07:56 Dose: 1,000 unit General: Other (sleeping) HEENT: Atraumatic, Normocephaly, Mucus Membranes Moist Neck: No JVD, Normal carotid pulses Cardiac: Reg Rate and Rhythm, Normal S1 and S2, No Murmur Lungs: Other (diminished) Neuro: Other (sleeping) Abdomen: Soft, Non-Tender Skin: No rashes noted on visualized skin Musculoskeletal: No Chest Wall Tenderness Extremities: No Clubbing, No Cyanosis, No Edema, Normal Pulses Results 11/01/18 16:35 11/02/18 03:10 Lab Results 11/01/18 11/01/18 11/02/18 16:35 16:35 03:10 WBC 8.4 Hgb 7.7 L Hct 24.3 L Plt Count 202 Sodium 140 139 Potassium 3.8 4.1 Chloride 109 H 113 H Carbon Dioxide 21 L 16 L BUN 61 H 60 H Creatinine 1.44 H 1.43 H Glucose 116 H 75 Calcium 8.2 L 8.4 L Magnesium 2.0 2.1 Total Bilirubin 0.7 AST 71 H ALT 19 Alkaline Phosphatase 189 H Troponin I < 0.03 TSH 11/02/18 03:10 WBC Hgb Hct Plt Count Sodium Potassium Chloride Carbon Dioxide BUN Creatinine Glucose Calcium Magnesium Total Bilirubin AST ALT Alkaline Phosphatase Troponin I TSH 7.141 H Consult Discharge Plan - Plan Referrals: Lang Jarvis DO [Primary Care Provider] - (Patient will be going to SNF)
[2018-11-02] MEDS ORDERED: 0.9 % Sodium Chloride 500 ML IVC ONE (11:21)
[2018-11-02] MEDS: Lactulose Oral Soln 20 GM/30 ML UDC PO SCH ×2 (11:32→21:26)
[2018-11-02] MEDS: Loratadine 10 MG TABLET PO SCH (11:33)
[2018-11-02] MEDS: Cholecalciferol (D-3) 1,000 UNIT TABLET PO SCH (11:33)
[2018-11-02] MEDS: Multivit/Ca/Min/Fe/FA 1 TAB TABLET PO SCH (11:33)
[2018-11-02] MEDS: Aspirin Enteric Coated 81 MG Tablet PO SCH (11:33)
[2018-11-02] MEDS: Ertapenem 1,000 MG in 0.9 % Sodium Chloride Mini Bag 100 ML IVPB SCH (11:34)
--- NOTE | 2018-11-02 20:33 | Electrocardiograph Report ---
[address] [place] [address] Test Date: 2018-11-01 Pat Name: Ashley Feliciano Department: 112 Room: 3A16 Gender: F Ms Access Database Developer: : 1955 Requested By: Coleman Shepherd Order Number: [id number] Reading MD: Angelica Gallego Measurements Intervals [place] Rate: 48 P: 231 [place]: 194 QRS: -40 QRSD: 151 T: 53 QT: 516 QTc: 484 Interpretive Statements SINUS BRADYCARDIA MARKED LEFT AXIS DEVIATION INTRAVENTRICULAR CONDUCTION DELAY Electronically Signed On 11-02-2018 20:32:20 EST by Angelica Gallego
[2018-11-02] MEDS: Leptospermum Honey Gel 44 ML TUBE TP SCH (22:51)
[2018-11-02] MEDS: Insulin DETEMIR 100 UNIT/ML X5UNITS SQ SCH (22:51)
[2018-11-03 05:16] LABS: Basophils # 0.1 K/mcL (0.0-0.2); Basophils % 0.8 %; Eosinophils # 1.1 K/mcL (0.0-0.6); Eosinophils % 10.6 %; Hematocrit 27.6 % (35.3-44.9); Hemoglobin 8.5 g/dL (11.5-15.4); Immature Granulocytes % 0.4 % (0-4); Lymphocytes # 1.7 K/mcL (0.6-4.6); Lymphocytes % 15.7 %; Mean Corpuscular HGB Conc 30.8 g/dL (31.6-35.5); Mean Corpuscular Hemoglobin 26.9 pg (28.0-33.3); Mean Corpuscular Volume 87.3 fL (83.0-100.0); Mean Platelet Volume 11.6 fL (9.4-12.4); Monocytes # 0.9 K/mcL (0.0-1.3); Monocytes % 8.5 %; Neutrophils # 6.9 K/mcL (1.6-8.9); Platelet Count 218 K/mcL (140-400); Red Blood Count 3.16 M/mcL (3.82-4.97)
[2018-11-03 05:31] LABS: BUN/Creatinine Ratio 48 (6-26); Blood Urea Nitrogen 50 mg/dL (8-23); Calcium 8.6 mg/dL (8.6-10.3); Carbon Dioxide 20 mEq/L (23-29); Chloride 117 mEq/L (98-107); Glucose 96 mg/dL (70-105); Magnesium 2.2 mg/dL (1.6-2.6); Osmolality,Calculated 297 (280-300); Potassium 3.8 mEq/L (3.5-5.1); Sodium 137 mEq/L (136-145); eGFR For Non-African Americans 54 (> 60)
[2018-11-03] MEDS: Budesonide/Formoterol 160/4.5 1 PUFF INH IH SCH ×2 (08:03→20:57)
[2018-11-03] MEDS: Insulin LISPRO 300 UNITS/3 ML VIAL SQ SCH ×3 (09:12→16:52)
[2018-11-03] MEDS: Multivit/Ca/Min/Fe/FA 1 TAB TABLET PO SCH (09:43)
[2018-11-03] MEDS: Pregabalin 75 MG CAPSULE PO SCH ×3 (09:43→21:25)
[2018-11-03] MEDS: Loratadine 10 MG TABLET PO SCH (09:43)
[2018-11-03] MEDS: Aspirin Enteric Coated 81 MG Tablet PO SCH (09:44)
[2018-11-03] MEDS: Lactulose Oral Soln 20 GM/30 ML UDC PO SCH ×2 (09:44→21:24)
[2018-11-03] MEDS: Cholecalciferol (D-3) 1,000 UNIT TABLET PO SCH (09:44)
[2018-11-03] MEDS: Ertapenem 1,000 MG in 0.9 % Sodium Chloride Mini Bag 100 ML IVPB SCH (09:45)
--- NOTE | 2018-11-03 10:34 | Internal Med Progress Note ---
Hospitalist Progress Note - Encounter Date of Encounter: 11/03/18 Time of Encounter: 10:30 - Subjective Interval History: 63 year old female history of atrial fibrillation not on anticoagulation, heart failure preserved EF 6065%, pulmonary hypertension, COPD, obesity, OLIVER and chronic sacral ulcer presented to the emergency department from longterm w ith complaint of fever. As per patient she started feeling warm and more weak than her baseline the day before admission which progressively worsened throughout the day. - Exam Vitals: Temp Pulse Resp BP Pulse Ox 98.1 F 62 16 122/65 97 11/03/18 09:05 11/03/18 09:05 11/03/18 09:05 11/03/18 09:05 11/03/18 09:05 Exam: Vitals: Reviewed. General: Alert and oriented x3, but somnolent Cardiovascular: RRR, normal S1 & S2, no rubs, murmurs or gallops. Lungs: CTA b/l, no wheezes or crackles. Abdomen: Obese, soft, non-tender, no rigidity. NABS in all 4 quadrants Extremities: stage IV sacral decubitus ulcer, decibitus ulcer on the right heel. 2+ edema in the lower extr b/l. Neurological: Normal cognition Rest of the physical exam is non contributory - Assessment and Plan (1) Sepsis Current Visit: Yes Status: Acute Assessment and Plan: Likely secondary to infected sacral ulcer. Wound cultures growing gram positive rods and enterococcus will continue ertapenem and vancomycin per ID recommendations. Duration per ID (2) COPD (chronic obstructive pulmonary disease) Current Visit: Yes Status: Chronic Assessment and Plan: not on acute exacerbation. chest is clear to auscultation. on bronchodilators PRN. continue symbicort (3) CAD (coronary artery disease) Current Visit: Yes Status: Chronic Assessment and Plan: on Aspirin 81mg/PO daily (4) DM (diabetes mellitus), type 2 Current Visit: Yes Status: Chronic Assessment and Plan: Restarted on diabetic diet. Continue insulin and monitor fingersticks (5) Paroxysmal a-fib Current Visit: Yes Status: Acute Assessment and Plan: patient bradycardic. HR in the 50s. Hold amiodarone and metoprolol today. on aspirin for secondary stroke prevention. patient given 2mg of glucagon on 2 different doses atropine 0.25mg/IV once Hold AV julian blockers. cardiology following (6) HTN (hypertension) Current Visit: Yes Status: Chronic Assessment and Plan: hold antihypertensive medications. Monitor BP (7) CHF (congestive heart failure) Current Visit: Yes Status: Chronic Assessment and Plan: patient in no exacerbation. furosemide held due to BP running in the low side. strict intake and output. fluids restriction to 1.5 litters a day. (8) OLIVER (obstructive sleep apnea) Current Visit: Yes Status: Chronic Assessment and Plan: patient on Bipap (9) Morbidly obese Current Visit: Yes Status: Chronic Assessment and Plan: Nutrition consult (10) Cirrhosis Current Visit: Yes Status: Chronic Assessment and Plan: Outpatient follow-up (11) Acute renal failure superimposed on stage 3 chronic kidney disease Current Visit: Yes Status: Chronic Assessment and Plan: slightly worsening kidney function. consider nephrology consult if kidney function continues to worsen. nephro protective strategies (12) Sacral decubitus ulcer, stage IV Current Visit: Yes Status: Chronic Assessment and Plan: wound vac per surgery recommendations. on broad spectrum antibiotics (13) Chronic anemia Current Visit: Yes Status: Chronic Assessment and Plan: worsening anemia today. FOBT negative 2 days ago. will repeat test. on ferrous sulfate 325mg/PO daily. GI consulted for anemia work-up. will transfuse 1 unit of PRBCs check CBC one hour post transfusion. on clears liquid diet, scheduled for EGD and colonoscopy tomorrow. (14) Hypothyroidism Current Visit: Yes Status: Chronic Assessment and Plan: on levothyroxine 75mcg/po daily DVT Prophylaxis: Intermittent pneumatic compression for DVT prophylaxis No chemical DVT prophylaxis due to worsening anemia - Time Spent with Patient Total time spent is greater than 50% in coordination of care (as documented) at patient's floor/unit and/or counseling patient: Internal Medicine: Result - Labs CBC & Chem 7: 11/03/18 04:22 11/03/18 04:22 Labs: Short CBC 11/03/18 Range/Units 04:22 WBC 10.7 (4.3-11.1) K/mcL Hgb 8.5 L (11.5-15.4) g/dL Hct 27.6 L (35.3-44.9) % Plt Count 218 (140-400) K/mcL Neutrophils # 6.9 (1.6-8.9) K/mcL BMP 11/03/18 04:22 Sodium 137 Potassium 3.8 Chloride 117 H Carbon Dioxide 20 L BUN 50 H Creatinine 1.04 Glucose 96 Calcium 8.6 - ABG Interpretation ABG results: ABG ABG pH 7.33 pH Units (7.32-7.45) 11/01/18 11:17 ABG pCO2 40 mmHg (35-45) 11/01/18 11:17 ABG pO2 112 mmHg (85-104) H 11/01/18 11:17 ABG O2 Saturation 98 % (95-98) 11/01/18 11:17 PT/INR, D-dimer PT 17.2 Seconds (9.4-12.1) H 10/28/18 03:30 Consult Discharge Plan - Plan Referrals: Lang Jarvis DO [Primary Care Provider] - (Patient will be going to [facility]) (1) Sepsis Qualifiers: Sepsis type: sepsis due to unspecified organism Qualified Code(s): A41.9 - Sepsis, unspecified organism (2) COPD (chronic obstructive pulmonary disease) Qualifiers: COPD type: unspecified COPD Qualified Code(s): J44.9 - Chronic obstructive pulmonary disease, unspecified (3) CAD (coronary artery disease) Qualifiers: Coronary Disease-Associated Artery/Lesion type: [place] artery [place] vs. transplanted heart: [place] heart Associated angina: without angina Qualified Code(s): I25.10 - Atherosclerotic heart disease of [place] coronary artery without angina pectoris (4) DM (diabetes mellitus), type 2 Qualifiers: Diabetes mellitus extermination supervisor insulin use: with senior care use Diabetes mellitus complication status: with kidney complications Diabetes mellitus complication detail: with chronic kidney disease Chronic kidney disease stage: stage 3 (moderate) Qualified Code(s): E11.22 - Type 2 diabetes mellitus with diabetic chronic kidney disease; N18.3 - Chronic kidney disease, stage 3 (moderate); Z79.4 - intermediate (current) use of insulin (6) HTN (hypertension) Qualifiers: Hypertension type: essential hypertension Qualified Code(s): I10 - Essential (primary) hypertension (10) Cirrhosis Qualifiers: Hepatic cirrhosis type: other cirrhosis Qualified Code(s): K74.69 - Other cirrhosis of liver (11) Acute renal failure superimposed on stage 3 chronic kidney disease Qualifiers: Acute renal failure type: unspecified Qualified Code(s): N17.9 - Acute kidney failure, unspecified; N18.3 - Chronic kidney disease, stage 3 (moderate) (14) Hypothyroidism Qualifiers: Hypothyroidism type: unspecified Qualified Code(s): E03.9 - Hypothyroidism, unspecified
--- NOTE | 2018-11-03 15:59 | ENT - Consult Note ---
<Monie Maloney - Last Filed: 11/03/18 15:56> Date of Encounter: 11/03/18 Time of Encounter: 15:56 Assessment and Plan (1) Acute effusion of both middle ears Current Visit: Yes Status: Acute Patient with no evidence of acute mastoiditis. No erythema, edema, or reported tenderness with palpation of mastoid process. Patient is currently afebrile with normal WBC. Patient's PE exam consistent with bilateral serous middle ear effusion. CT imaging reviewed and doesn't demonstrate coalescence of either mastoid. No further surgical ENT intervention recommend at this time. Patient to follow up outpatient for audiogram and further plan of care with possible myringotomy with evacuation of middle ear fluid or tympanostomy tube placement. ENT is signing off. (2) Chronic eustachian tube dysfunction Current Visit: Yes Status: Acute Patient is chronically oxygen dependent with BIPAP at night time, contributing to chronic ETD. Patient currently with bilateral middle ear effusions. Recommend daily flonase nasal spray use. Alternatively, oral steroid burst could given although due to current admission for sepsis intranasal corticosteroid safer option. Qualifiers: Laterality: bilateral Qualified Code(s): H69.83 - Other specified disorders of Eustachian tube, bilateral (3) Decreased hearing of left ear Current Visit: Yes Status: Acute Patient to follow up for audiogram outpatient in ENT office after discharge for this complaint. (4) Nasal dryness Current Visit: Yes Status: Acute recommend humidification for oxygen to decrease nasal dryness. History of Present Illness Consult date: 11/03/18 Reason for ENT Consult: other (bilateral mastoiditis) Requesting physician: Cedric Chao History of present illness: Patient is a 63 year old female history of atrial fibrillation not on anticoagulation, heart failure preserved EF 60-65%, pulmonary hypertension, COPD, obesity, OLIVER and chronic sacral ulcer presented to the emergency department from residential with complaint of fever on 10/27/18. Patient is currently on IV antibiotics for treatment of sepsis. Patient had CT scan of the head completed on 11/01/18 which reported Complete opacification of the mastoid air cells bilaterally. ENT was consulted for further evaluation of possible bilateral mastoiditis. Patient currently denies any otorrhea or tinnitus from either ear. She does report decreased hearing from baseline present for approximately 2 weeks in the left ear. Patient reports chronic hearing loss of the right ear due to viral infection as a child. She also reports a sensation of fullness with intermittent otalgia bilaterally. She denies any neck stiffness or severe headache. Patient is chronically oxygen dependent and wears BiPAP at night. Past Med Surg Social Fam HX - Past Medical History Medical history: atrial fibrillation, CHF, COPD, coronary artery disease, DVT, diabetes, GI bleed, hyperlipidemia, hypertension, myocardial infarction, renal disease, thyroid disease, other Additional medical history: hemrhoids,gout, fatty liver, decub to buttocks Psychiatric history: anxiety, depression - Past Surgical History Surgical History: angioplasty/stent, other Additional surgical history: 1 cardiac stents. right leg procedure for DVT - Social History Smoking Status: Former smoker Smokeless Tobacco Status: No Alcohol use: none Drug use: none - Family History Brother Family Member Ethnicity: Non- Living Status: Hx Family Cancer: Yes (colon cancer) Father Adopted: No Family Member Ethnicity: Non- Living Status: Hx Family Cardiac Disorders: Yes (heart attack) Hx Family Respiratory Disorders: Yes (breathing issues) Hx Family Cancer: No Hx Family GI Disorders: No Hx Family Endocrine Disorder: No Hx Family Neuromuscular Disorders: No Hx Family Neurologic Disorders: No Hx Family HEENT Disorders: No Hx Family Autoimmune Disorders: No Mother Family Member Ethnicity: Non- Living Status: Still Living Hx Family Cardiac Disorders: Yes Hx Family Endocrine Disorder: Yes (DM) Hx Family Neurologic Disorders: Yes (Dementia) Son Family Member Ethnicity: Non- Living Status: Still Living Hx Family GI Disorders: Yes (high grade dysplasia polyps) Medications and Allergies RX: Acetaminophen [Extra Strength Non-Aspirin] 500 mg PO Q6H PRN 09/13/18 [His tory] RX: Albuterol Sulfate [Albuterol Inhaler] 2 puff IH Q6H PRN 09/13/18 [History] RX: Amiodarone [Cordarone] 200 mg PO DAILY 09/13/18 [History] RX: Aspirin Enteric Coated [Aspirin EC] 81 mg PO DAILY 09/13/18 [History] RX: Atorvastatin [Lipitor] 20 mg PO HS 09/13/18 [History] RX: Bisacodyl [Dulcolax] 10 mg RC DAILY PRN 09/13/18 [History] RX: Budesonide/Formoterol 160/4.5 [Symbicort 160/4.5] 2 puff IH BIDR 09/13/18 [History] RX: Cholecalciferol (D-3) [Vitamin D] 5,000 unit PO DAILY 09/13/18 [History] RX: Docusate [Colace] 100 mg PO BID PRN 09/13/18 [History] RX: Febuxostat [Uloric] 40 mg PO QPM 09/13/18 [History] RX: Ferrous Gluconate 324 mg PO DAILY 09/13/18 [History] RX: Furosemide [Lasix] 60 mg PO BID 09/13/18 [History] RX: Glucagon,Human Recombinant [Glucagon Emergency Kit] 1 mg IJ AD PRN 09/13/18 [History] RX: Lisinopril [Zestril] 40 mg PO DAILY 09/13/18 [History] RX: Metoprolol XL (24 HR) Succ [Toprol Xl] 25 mg PO QPM 09/13/18 [History] RX: Montelukast [Singulair] 10 mg PO HS 09/13/18 [History] RX: Multivitamin [One Daily Essential] 1 each PO DAILY 09/13/18 [History] RX: Omeprazole [PriLOSEC] 40 mg PO QPM 09/13/18 [History] RX: Pregabalin [Lyrica] 75 mg PO TID 09/13/18 [History] RX: Leptospermum Honey [Medihoney] 1 appl TP DAILY #30 tube 09/20/18 [Rx] RX: Lactulose [Enulose] 30 gm PO BID 09/24/18 [History] Ertapenem [INVanz] 1,000 mg IVPB DAILY 10/27/18 [History] Insulin ASPART [NovoLOG] 0 unit SQ ACHS 10/27/18 [History] Insulin DETEMIR [Levemir] 13 unit SQ BID 10/27/18 [History] Levothyroxine [Synthroid] 75 mcg PO 0630 10/27/18 [History] Loratadine [Allergy Relief] 10 mg PO DAILY 10/27/18 [History] Urea/Alpha Hydroxy Acids [Atrac-Tain Cream] 142 gm TP BID 10/27/18 [History] Allergy/AdvReac Type Severity Reaction Status Date / Time ciprofloxacin [From Cipro] Allergy Severe Anaphylaxis Verified 07/11/18 09:28 clarithromycin [From Biaxin] Allergy Severe Hives Verified 07/11/18 09:28 clonidine Allergy Severe Anaphylaxis Verified 07/11/18 09:28 levofloxacin [From Levaquin] Allergy Severe Anaphylaxis Verified 07/11/18 09:28 Warfarin Allergy Severe Difficulty Verified 07/11/18 09:28 Breathing Cefaclor Allergy Anaphylaxis Verified 07/11/18 09:28 codeine Allergy Rash Verified 07/11/18 09:28 Hydralazine Allergy Hives Verified 07/11/18 09:28 sulfamethoxazole Allergy Hives Verified 07/11/18 09:28 [From Bactrim] trimethoprim [From Bactrim] Allergy Hives Verified 07/11/18 09:28 tiotropium AdvReac Severe Blurry Verified 07/11/18 09:28 [From Spiriva with Vision HandiHaler] acarbose AdvReac Blurry Verified 07/11/18 09:28 Vision atorvastatin [From Lipitor] AdvReac Muscle Pain Verified 07/11/18 09:28 fenofibrate [From Tricor] AdvReac Muscle Pain Verified 07/11/18 09:28 rivaroxaban [From Xarelto] AdvReac Gastrointestinal Verified 07/11/18 09:28 Upset ENT - ROS - EENT Nose, mouth and throat: other (decreased hearing, pressure bilaterally, sensation of fluid (water) in ears bilaterally. Denies any otorrhea.) ENT Exam Initial Vital Signs Temp Pulse Resp BP Pulse Ox 101.1 F H 75 19 111/39 97 10/27/18 03:27 10/27/18 03:27 10/27/18 03:27 10/27/18 03:27 10/27/18 03:27 - General physical appearance no distress - Eyes PERRL, normal ocular movement - ENT CN 2-12 grossly intact, Other (Oral: mucosa moist, is edentulous upper and lower, no oral lesions noted, tongue midline, no issues with oropharynx. Nose: Nares patent bilaterally, nasal mucosa is severely dry with crusting noted bilaterally. EARS: EACs clear bilaterally, severe retraction noted to bilateral TMs. Patient with bilateral serous middle ear effusion. NO TM perforation or drainage noted to either ear. No post auricular edema erythema. No reported tenderness with palpation of either mastoid process. ) - Neck trachea midline, no lymphadectomy - Respiratory normal expansion, normal respiratory effort - Neurologic CN 2-12 grossly intact - Psychiatric oriented to time, oriented to person, oriented to place, speech is normal Exam Initial Vital Signs Temp Pulse Resp BP Pulse Ox 101.1 F H 75 19 111/39 97 10/27/18 03:27 10/27/18 03:27 10/27/18 03:27 10/27/18 03:27 10/27/18 03:27 Results - Labs 11/03/18 04:22 11/03/18 04:22 Abnormal lab results RBC 3.16 M/mcL (3.82-4.97) L 11/03/18 04:22 Hgb 8.5 g/dL (11.5-15.4) L 11/03/18 04:22 Hct 27.6 % (35.3-44.9) L 11/03/18 04:22 MCH 26.9 pg (28.0-33.3) L 11/03/18 04:22 MCHC 30.8 g/dL (31.6-35.5) L 11/03/18 04:22 RDW 18.0 % (11.5-14.5) H 11/03/18 04:22 Eosinophils # 1.1 K/mcL (0.0-0.6) H 11/03/18 04:22 ESR 61 mm/hr (0-15) H 10/27/18 08:22 PT 17.2 Seconds (9.4-12.1) H 10/28/18 03:30 APTT 36.9 Seconds (26.0-36.0) H 10/27/18 03:35 ABG pO2 112 mmHg (85-104) H 11/01/18 11:17 ABG Base Excess -4 mEq/L (-2 to 3) L 11/01/18 11:17 Chloride 117 mEq/L (98-107) H 11/03/18 04:22 Carbon Dioxide 20 mEq/L (23-29) L 11/03/18 04:22 BUN 50 mg/dL (8-23) H 11/03/18 04:22 Est GFR (Non-Af Amer) 54 (> 60) L 11/03/18 04:22 BUN/Creatinine Ratio 48 (6-26) H 11/03/18 04:22 Direct Bilirubin 0.3 mg/dL (0.0-0.2) H 11/01/18 16:35 AST 71 Units/L (13-39) H 11/01/18 16:35 Alkaline Phosphatase 189 Units/L (34-104) H 11/01/18 16:35 Ammonia 74 mcmol/L (16-53) H 11/01/18 16:35 Serum Total Protein 5.0 g/dL (6.4-8.9) L 11/01/18 16:35 Albumin 1.7 g/dL (3.5-5.7) L 11/01/18 16:35 Albumin/Globulin Ratio 0.5 (1.1-2.2) L 11/01/18 16:35 TSH 7.141 mcIU/mL (0.340-5.600) H 11/02/18 03:10 Urine Clarity Turbid (Clear) A 10/27/18 03:48 Urine Blood Moderate (Negative) H 10/27/18 03:48 Urine Bilirubin Small (Negative) H 10/27/18 03:48 Ur Leukocyte Esterase Large (Negative) H 10/27/18 03:48 Urine Microscopic WBC TNTC per hpf (0-3) H 10/27/18 03:48 Ur Squamous Epith Cells Many per lpf (None-Few) H 10/27/18 03:48 Urine Yeast Many per hpf (None Seen) H 10/27/18 03:48 Ur Culture Indicated? NO. (NO) A 10/27/18 03:48 Stool Occult Blood Positive (Negative) A 11/01/18 11:28 Vancomycin Trough 29 mcg/mL (5-10) H 11/01/18 08:05 Diabetes panel 11/03/18 Range/Units 04:22 Sodium 137 (136-145) mEq/L Potassium 3.8 (3.5-5.1) mEq/L Chloride 117 H (98-107) mEq/L Carbon Dioxide 20 L (23-29) mEq/L BUN 50 H (8-23) mg/dL Creatinine 1.04 (0.60-1.20) mg/dL Glucose 96 (70-105) mg/dL Calcium 8.6 (8.6-10.3) mg/dL Calcium panel 11/03/18 Range/Units 04:22 Calcium 8.6 (8.6-10.3) mg/dL Phosphorus 4.0 (2.7-4.5) mg/dL Pituitary panel 11/03/18 Range/Units 04:22 Sodium 137 (136-145) mEq/L Potassium 3.8 (3.5-5.1) mEq/L Chloride 117 H (98-107) mEq/L Carbon Dioxide 20 L (23-29) mEq/L BUN 50 H (8-23) mg/dL Creatinine 1.04 (0.60-1.20) mg/dL Glucose 96 (70-105) mg/dL Calcium 8.6 (8.6-10.3) mg/dL Adrenal panel 11/03/18 Range/Units 04:22 Sodium 137 (136-145) mEq/L Potassium 3.8 (3.5-5.1) mEq/L Chloride 117 H (98-107) mEq/L Carbon Dioxide 20 L (23-29) mEq/L BUN 50 H (8-23) mg/dL Creatinine 1.04 (0.60-1.20) mg/dL Glucose 96 (70-105) mg/dL Calcium 8.6 (8.6-10.3) mg/dL All other labs normal. Consult Discharge Plan - Plan Referrals: Lang Jarvis, [Primary Care Provider] - (Patient will be going to SNF) <Bertram Strickland - Last Filed: 11/04/18 08:21> Date of Encounter: 11/04/18 Assessment and Plan (1) Acute effusion of both middle ears Current Visit: Yes Status: Acute (2) Chronic eustachian tube dysfunction Current Visit: Yes Status: Acute Qualifiers: Laterality: bilateral Qualified Code(s): H69.83 - Other specified disorders of Eustachian tube, bilateral (3) Decreased hearing of left ear Current Visit: Yes Status: Acute (4) Nasal dryness Current Visit: Yes Status: Acute ENT Exam Initial Vital Signs Temp Pulse Resp BP Pulse Ox 101.1 F H 75 19 111/39 97 10/27/18 03:27 10/27/18 03:27 10/27/18 03:27 10/27/18 03:27 10/27/18 03:27 Exam Initial Vital Signs Temp Pulse Resp BP Pulse Ox 101.1 F H 75 19 111/39 97 10/27/18 03:27 10/27/18 03:27 10/27/18 03:27 10/27/18 03:27 10/27/18 03:27 Results - Labs 11/04/18 04:45 11/04/18 04:45 Abnormal lab results RBC 2.95 M/mcL (3.82-4.97) L 11/04/18 04:45 Hgb 8.0 g/dL (11.5-15.4) L 11/04/18 04:45 Hct 26.0 % (35.3-44.9) L 11/04/18 04:45 MCH 27.1 pg (28.0-33.3) L 11/04/18 04:45 MCHC 30.8 g/dL (31.6-35.5) L 11/04/18 04:45 RDW 18.4 % (11.5-14.5) H 11/04/18 04:45 Eosinophils # 1.1 K/mcL (0.0-0.6) H 11/04/18 04:45 ESR 61 mm/hr (0-15) H 10/27/18 08:22 PT 17.2 Seconds (9.4-12.1) H 10/28/18 03:30 APTT 36.9 Seconds (26.0-36.0) H 10/27/18 03:35 ABG pO2 112 mmHg (85-104) H 11/01/18 11:17 ABG Base Excess -4 mEq/L (-2 to 3) L 11/01/18 11:17 Potassium 3.4 mEq/L (3.5-5.1) L 11/04/18 04:45 Chloride 115 mEq/L (98-107) H 11/04/18 04:45 Carbon Dioxide 21 mEq/L (23-29) L 11/04/18 04:45 BUN 43 mg/dL (8-23) H 11/04/18 04:45 BUN/Creatinine Ratio 47 (6-26) H 11/04/18 04:45 POC Glucose 130 mg/dL (70-99) H 11/03/18 20:49 Direct Bilirubin 0.3 mg/dL (0.0-0.2) H 11/01/18 16:35 AST 71 Units/L (13-39) H 11/01/18 16:35 Alkaline Phosphatase 189 Units/L (34-104) H 11/01/18 16:35 Ammonia 74 mcmol/L (16-53) H 11/01/18 16:35 Serum Total Protein 5.0 g/dL (6.4-8.9) L 11/01/18 16:35 Albumin 1.7 g/dL (3.5-5.7) L 11/01/18 16:35 Albumin/Globulin Ratio 0.5 (1.1-2.2) L 11/01/18 16:35 TSH 7.141 mcIU/mL (0.340-5.600) H 11/02/18 03:10 Urine Clarity Turbid (Clear) A 10/27/18 03:48 Urine Blood Moderate (Negative) H 10/27/18 03:48 Urine Bilirubin Small (Negative) H 10/27/18 03:48 Ur Leukocyte Esterase Large (Negative) H 10/27/18 03:48 Urine Microscopic WBC TNTC per hpf (0-3) H 10/27/18 03:48 Ur Squamous Epith Cells Many per lpf (None-Few) H 10/27/18 03:48 Urine Yeast Many per hpf (None Seen) H 10/27/18 03:48 Ur Culture Indicated? NO. (NO) A 10/27/18 03:48 Stool Occult Blood Positive (Negative) A 11/01/18 11:28 Vancomycin Trough 29 mcg/mL (5-10) H 11/01/18 08:05 Diabetes panel 11/04/18 Range/Units 04:45 Sodium 137 (136-145) mEq/L Potassium 3.4 L (3.5-5.1) mEq/L Chloride 115 H (98-107) mEq/L Carbon Dioxide 21 L (23-29) mEq/L BUN 43 H (8-23) mg/dL Creatinine 0.91 (0.60-1.20) mg/dL Glucose 89 (70-105) mg/dL Calcium 8.6 (8.6-10.3) mg/dL Calcium panel 11/04/18 Range/Units 04:45 Calcium 8.6 (8.6-10.3) mg/dL Phosphorus 3.4 (2.7-4.5) mg/dL Pituitary panel 11/04/18 Range/Units 04:45 Sodium 137 (136-145) mEq/L Potassium 3.4 L (3.5-5.1) mEq/L Chloride 115 H (98-107) mEq/L Carbon Dioxide 21 L (23-29) mEq/L BUN 43 H (8-23) mg/dL Creatinine 0.91 (0.60-1.20) mg/dL Glucose 89 (70-105) mg/dL Calcium 8.6 (8.6-10.3) mg/dL Adrenal panel 11/04/18 Range/Units 04:45 Sodium 137 (136-145) mEq/L Potassium 3.4 L (3.5-5.1) mEq/L Chloride 115 H (98-107) mEq/L Carbon Dioxide 21 L (23-29) mEq/L BUN 43 H (8-23) mg/dL Creatinine 0.91 (0.60-1.20) mg/dL Glucose 89 (70-105) mg/dL Calcium 8.6 (8.6-10.3) mg/dL All other labs normal. - Attending Attestation The patient was seen independently from the nurse practitioner by myself. This is a 63-year-old female who presented to the hospital and was found to have sepsis likely from a sacral ulcer. The patient underwent CT scan of the head which demonstrated bilateral mastoid and middle ear effusions. ENT was consult for evaluation. The patient denies any otorrhea, postauricular pain. The patient does admit to a decrease in hearing in the left ear over the past 2 weeks, she states that she has a long-standing history of bilateral hearing loss due to mom's infection as a child. On physical exam, the bilateral ear externally is within normal limits, the external auditory canals are patent and without purulent otorrhea, the tympanic membrane is intact however they are both significantly retracted and there is evidence of bilateral middle ear effusion. The ears not proptotic on either side, there is no mastoid tenderness nor is there any erythema or edema noted in the skin over the mastoid. The CT scan was reviewed and did not demonstrate bilateral mastoid effusion without any evidence of mastoid coalescence. The patient did undergo CT of the head approximately 1 year prior which demonstrated the same trabecular pattern of the mastoid air cells as in the CT scan that was obtained recently. At this time there is no surgical intervention is indicated. I will have the patient follow up in the office for an audiogram. We will start the patient on Flonase to treat for her eustachian tube dysfunction and we will discuss possibly placing a tympanostomy tube in each ear to drain the middle ear effusion.'s with the patient that the middle ear effusion is not an infection and therefore does not warrant treatment emergently.
--- NOTE | 2018-11-03 17:12 | Event Note ---
<Mikey Blair - Last Filed: 11/03/18 17:10> Date of Encounter: 11/03/18 Time of Encounter: 17:10 Patient had EGD/colonoscopy and capsule endoscopy approximately 2 weeks ago at [facility]. Patient does not want to complete scopes at this time and would like to wait on records from [facility]. Patient can follow up with Dr. Baird as outpatient and 2-3 weeks. <Patricio Baird - Last Filed: 11/07/18 04:52> Date of Encounter: 11/04/18 I have personally performed a face to face evaluation on this patient. I have reviewed and agree with the care plan. History and Exam by me shows:
[2018-11-03] MEDS: Leptospermum Honey Gel 44 ML TUBE TP SCH (21:25)
[2018-11-03] MEDS: Insulin DETEMIR 100 UNIT/ML X5UNITS SQ SCH (22:32)
[2018-11-04 05:11] LABS: Basophils # 0.1 K/mcL (0.0-0.2); Eosinophils # 1.1 K/mcL (0.0-0.6); Eosinophils % 12.1 %; Immature Granulocytes % 0.3 % (0-4); Lymphocytes # 1.8 K/mcL (0.6-4.6); Lymphocytes % 19.2 %; Mean Corpuscular HGB Conc 30.8 g/dL (31.6-35.5); Mean Corpuscular Hemoglobin 27.1 pg (28.0-33.3); Mean Corpuscular Volume 88.1 fL (83.0-100.0); Mean Platelet Volume 11.6 fL (9.4-12.4); Monocytes # 0.7 K/mcL (0.0-1.3); Monocytes % 8.1 %; Neutrophils # 5.4 K/mcL (1.6-8.9); Platelet Count 212 K/mcL (140-400); Red Blood Count 2.95 M/mcL (3.82-4.97); Red Cell Distribution Width 18.4 % (11.5-14.5); Segmented Neutrophils % 59.3 %
[2018-11-04 05:25] LABS: BUN/Creatinine Ratio 47 (6-26); Blood Urea Nitrogen 43 mg/dL (8-23); Calcium 8.6 mg/dL (8.6-10.3); Carbon Dioxide 21 mEq/L (23-29); Chloride 115 mEq/L (98-107); Glucose 89 mg/dL (70-105); Magnesium 2.2 mg/dL (1.6-2.6); Osmolality,Calculated 294 (280-300); Phosphorous 3.4 mg/dL (2.7-4.5); Potassium 3.4 mEq/L (3.5-5.1); Sodium 137 mEq/L (136-145); eGFR For Non-African Americans > 60 (> 60)
[2018-11-04] MEDS: Budesonide/Formoterol 160/4.5 1 PUFF INH IH SCH (07:30)
[2018-11-04] MEDS: Insulin LISPRO 300 UNITS/3 ML VIAL SQ SCH ×3 (09:10→17:06)
[2018-11-04] MEDS: Aspirin Enteric Coated 81 MG Tablet PO SCH (09:25)
[2018-11-04] MEDS: Pregabalin 75 MG CAPSULE PO SCH ×2 (09:25→13:41)
[2018-11-04] MEDS: Multivit/Ca/Min/Fe/FA 1 TAB TABLET PO SCH (09:25)
[2018-11-04] MEDS: Cholecalciferol (D-3) 1,000 UNIT TABLET PO SCH (09:25)
[2018-11-04] MEDS: Lactulose Oral Soln 20 GM/30 ML UDC PO SCH (09:25)
[2018-11-04] MEDS: Ertapenem 1,000 MG in 0.9 % Sodium Chloride Mini Bag 100 ML IVPB SCH (09:25)
[2018-11-04] MEDS: Loratadine 10 MG TABLET PO SCH (09:25)
[2018-11-04] MEDS: Insulin DETEMIR 100 UNIT/ML X5UNITS SQ SCH (09:26)
--- NOTE | 2018-11-04 09:47 | Infectious Disease Progress No ---
Date of Encounter: 11/04/18 Time of Encounter: 09:10 - Assessment and Plan (1) Sepsis Current Visit: Yes Status: Acute Severe sepsis: The patient had 2 sepsis criteria plus acute kidney injury on admission. Likely secondary to decubitus ulcer infection. White blood cell count normal. Afebrile overnight. The cultures drawn sets are positive 1/4 sets for luc bacterium. The one that is positive appears to have been drawn by an RN, which makes me suspicious that it was drawn from the PICC line. Additional blood culture also drawn 10/27/18 is positive for anaerobes. Repeat blood cultures drawn 10/31/18 (peripherally) are NGTD x 2 sets. Recommendations: Await repeat blood cultures. Wound care per surgery team recommendations. Aggressive offloading and wound care per nursing. Continue Ertapenem 1 gram IV daily. Continue vancomycin IV. Pharmacy to dose. Goal trough approximately 15. Duration of treatment depends on the clinical picture. The patient was due to complete 6 weeks of IV Ertapenem on 11/10/18, but will likely need to extend for an additional two weeks through 11/24/18. Will likely need a total of 6 weeks of IV Vancomycin as well. Monitor renal function for drug toxicity and dose adjust antibiotics. Contact precautions per policy. medical and health services manager to assist with discharge planning. Will need weekly CBC, BUN/Cr, ESR, CRP, and Vanc. Will need weekly PICC care per protocol. Follow up with ID 11/17/18 at 1345. Qualifiers: Sepsis type: sepsis due to unspecified organism Qualified Code(s): A41.9 - Sepsis, unspecified organism (2) Bacteremia Current Visit: Yes Status: Resolved Causative organism: Corynebacterium and anaerobes. Blood culture drawn 10/27/18 1/4 sets is positive for Corynebacterium and separate culture positive for anaerobes. It appears the one that is positive for Corynebacterium was drawn by a nurse which makes me highly suspicious that this was the one drawn from the PICC line. Contaminant vs. true infection--> most likely a contaminant. Patient clinically improved. Currently on Vanc and Ertapenem. (3) Decubitus ulcer, infected Current Visit: Yes Status: Acute Location: Sacral wound. Causative organism: E. faecalis, AmpS. Previous cultures positive for P. mirabilis and E. coli ESBL per [facility] bone cultures. The patient originally told her she was diagnosed with osteomyelitis at [facility], but further review of the records indicates that she was diagnosed with osteomyelitis of the sacrum in September 2018 at [facility]. The cultures indicate Proteus and ESBL Escherichia coli from the sacrum bone, as well as anaerobes. She was discharged back to the [facility] with plans to complete a 6 week course (through 11/10/18) and instructions to follow up with [facility] infectious disease. CT of the abdomen and pelvis showed cellulitis with gas and an abscess could not be excluded. Concerned that the patient has chronically loose stools from her lactulose that is likely contaminating the wound constantly since she is unable to get out of bed to defecate. ESR and CRP elevated. General surgery consulted. No surgical intervention warranted at this time. Currently on Vanc and Ertapenem. Qualifiers: Pressure injury stage: stage 4 Qualified Code(s): L89.94 - Pressure ulcer of unspecified site, stage 4; L08.9 - Local infection of the skin and subcutaneous tissue, unspecified (4) Cellulitis Current Visit: No Status: Chronic Location: Sacrum. Likely secondary to sacral wound infection. Causative organism: E. faecalis. Currently on IV Vanc and Ertapenem. Qualifiers: Site of cellulitis: extremity Site of cellulitis of extremity: lower extremity Laterality: unspecified laterality Qualified Code(s): L03.119 - Cellulitis of unspecified part of limb (5) Somnolence Current Visit: Yes Status: Acute Likely multifactorial: hyperammonemia + bradycardia. Improved. CT head negative. Continue to monitor closely. (6) Bradycardia Current Visit: Yes Status: Acute Likely multifactorial: hypothyroid + medications. Improved. Cardiology consulted and signed off. (7) History of allergy to multiple drugs Current Visit: No Status: Chronic The patient has multiple allergies which compensates and limits our ability in selecting antibiotic therapy. Cipro-anaphylaxis Biaxin-hives Levaquin-anaphylaxis Bactrim-hives Cefaclor-anaphylaxis (8) BRADFORD (nonalcoholic steatohepatitis) Current Visit: No Status: Chronic The patient states she follows with a community service technician up in [place]. Acute hepatitis profile negative. MELD score 17. (9) OLIVER (obstructive sleep apnea) Current Visit: Yes Status: Chronic (10) PAD (peripheral artery disease) Current Visit: No Status: Chronic (11) Pulmonary hypertension Current Visit: No Status: Chronic (12) Acute kidney injury superimposed on chronic kidney disease Current Visit: No Status: Resolved Likely secondary to sepsis and poor by mouth intake. Improved. Continue to trend. Avoid nephrotoxins and dose adjust antibiotics. (13) History of DVT of lower extremity Current Visit: No Status: Resolved (14) Atrial fibrillation Current Visit: No Status: Chronic Qualifiers: Atrial fibrillation type: chronic Qualified Code(s): I48.2 - Chronic atrial fibrillation (15) COPD (chronic obstructive pulmonary disease) Current Visit: No Status: Chronic Qualifiers: COPD type: unspecified COPD Qualified Code(s): J44.9 - Chronic obstructive pulmonary disease, unspecified (16) HLD (hyperlipidemia) Current Visit: No Status: Chronic Qualifiers: Hyperlipidemia type: pure hypercholesterolemia Qualified Code(s): E78.00 - Pure hypercholesterolemia, unspecified; E78.0 - Pure hypercholesterolemia (17) Morbidly obese Current Visit: Yes Status: Chronic (18) Diabetes mellitus Current Visit: No Status: Chronic Recommend strict glucose control. Qualifiers: Diabetes mellitus type: type 2 Diabetes mellitus terminal manager insulin use: without longterm use Diabetes mellitus complication status: with kidney complications Diabetes mellitus complication detail: with nephropathy Qualified Code(s): E11.21 - Type 2 diabetes mellitus with diabetic nephropathy (19) Mastoiditis Current Visit: Yes Status: Ruled-out CT head shows opacification of the bilateral mastoid air cells. Patient reports chronic hearing loss in the right ear and decreased hearing in the left. ENT consulted and does not feel that the patient has mastoiditis. Qualifiers: Laterality: bilateral Qualified Code(s): H70.93 - Unspecified mastoiditis, bilateral - Subjective Interval history: Patient seen and examined. No acute events noted overnight. Patient states overall she feels a little better today. Denies fevers, chills, or rigors. Denies chest pain. States her breathing is at baseline and she reports a mild nonproductive cough. Denies nausea, vomiting or diarrhea. She reports chronically loose stools secondary to lactulose. Denies abdominal pain or urinary complaints. Denies any oral thrush or new skin lesions. Complains of mild pain at the site of her sacral ulcer. States she is not hungry and does not feel like eating. Infect Dis PN-Objective Data - Labs CBC & Chem 7: 11/04/18 04:45 11/04/18 04:45 Labs: Laboratory Results - last 24 hr 11/02/18 11/03/18 11/04/18 14:30 20:49 04:45 WBC 9.1 RBC 2.95 L Hgb 8.0 L Hct 26.0 L MCV 88.1 MCH 27.1 L MCHC 30.8 L RDW 18.4 H Plt Count 212 MPV 11.6 Immature Gran % 0.3 Seg Neutrophils % 59.3 Lymphocytes % 19.2 Monocytes % 8.1 Eosinophils % 12.1 Basophils % 1.0 Neutrophils # 5.4 Lymphocytes # 1.8 Monocytes # 0.7 Eosinophils # 1.1 H Basophils # 0.1 Sodium Potassium Chloride Carbon Dioxide BUN Creatinine Est GFR ( Amer) Est GFR (Non-Af Amer) BUN/Creatinine Ratio Glucose POC Glucose 96 130 H Calculated Osmolality Calcium Phosphorus Magnesium 11/04/18 04:45 WBC RBC Hgb Hct MCV MCH MCHC RDW Plt Count MPV Immature Gran % Seg Neutrophils % Lymphocytes % Monocytes % Eosinophils % Basophils % Neutrophils # Lymphocytes # Monocytes # Eosinophils # Basophils # Sodium 137 Potassium 3.4 L Chloride 115 H Carbon Dioxide 21 L BUN 43 H Creatinine 0.91 Est GFR ( Amer) > 60 Est GFR (Non-Af Amer) > 60 BUN/Creatinine Ratio 47 H Glucose 89 POC Glucose Calculated Osmolality 294 Calcium 8.6 Phosphorus 3.4 Magnesium 2.2 Cultures: Cultures 10/27/18 11:38 Wound Culture - Final Other-Specify in Comments Enterococcus faecalis 10/27/18 11:38 Anaerobic Culture - Preliminary Other-Specify in Comments Anaerobic Gram Positive Rafael 10/27/18 03:35 Blood Culture - Preliminary Peripheral Venipuncture Corynebacterium species 10/27/18 11:25 Blood Culture - Final Peripheral Venipuncture No growth. Final report. 10/27/18 08:22 Blood Culture - Final Peripheral Venipuncture No growth. Final report. 10/27/18 08:15 Blood Culture - Final Peripheral Venipuncture No growth. Final report. 10/31/18 14:32 Blood Culture - Preliminary Peripheral Venipuncture Culture is incubating and being continuously monitored for growth. Final report to follow. 10/31/18 14:32 Blood Culture - Preliminary Peripheral Venipuncture Culture is incubating and being continuously monitored for growth. Final report to follow. 10/27/18 03:52 Influenza Types A,B Antigen - Final Nasopharyngeal Serology 11/01/18 11/01/18 10/30/18 Range/Units 16:35 11:28 10:46 Urine Color (Yellow) Urine Clarity (Clear) Urine pH (5.0-8.0) pH Units Ur Specific Mallory (1.010-1.025) Urine Protein (Neg-Trace) mg/dL Urine Glucose (UA) (Normal) mg/dL Urine Ketones (Negative) mg/dL Urine Blood (Negative) Urine Nitrite (Negative) Urine Bilirubin (Negative) Urine Urobilinogen (Normal) mg/dL Ur Leukocyte Esterase (Negative) Urine Microscopic RBC (0-3) per hpf Urine Microscopic WBC (0-3) per hpf Ur Squamous Epith Cells (None-Few) per lpf Urine Bacteria (None-Few) per hpf Hyaline Casts (None-Few) per lpf Urine Yeast (None Seen) per hpf Ur Culture Indicated? (NO) Nasal Screen MRSA (PCR) (Negative) Stool Occult Blood Positive A Negative (Negative) Chlamy pneumoniae PCR (Not Detect) Adenovirus (PCR) (Not Detect) B. pertussis DNA (PCR) (Not Detect) B.parapertussis DNA PCR (Not Detect) Coronavirus OC43 (PCR) (Not Detect) Coronavirus HKU1 (PCR) (Not Detect) Coronavirus 229E (PCR) (Not Detect) Coronavirus NL63 (PCR) (Not Detect) Hepatitis A IgM Ab Nonreactive (Nonreactive) Hep Bs Antigen Nonreactive (Nonreactive) Hep B Core IgM Ab Nonreactive (Nonreactive) Hepatitis C Ab Screen Nonreactive (Nonreactive) Human Metapneumovir PCR (Not Detect) Influenza A (H1) PCR (Not Detect) Influ A (H1N1/09) PCR (Not Detect) Influenza A (H3) PCR (Not Detect) Influenza A Untype (PCR) (Not Detect) Influenza Type B (PCR) (Not Detect) M.pneumoniae DNA (PCR) (Not Detect) Parainfluenza 1 (PCR) (Not Detect) Parainfluenza 2 (PCR) (Not Detect) Parainfluenza 3 (PCR) (Not Detect) Parainfluenza 4 (PCR) (Not Detect) RSV (PCR) (Not Detect) Entero/Rhino (PCR) (Not Detect) 10/28/18 10/27/18 10/27/18 Range/Units 11:00 20:10 03:48 Urine Color Dark Yellow (Yellow) Urine Clarity Turbid A (Clear) Urine pH 5.0 (5.0-8.0) pH Units Ur Specific Mallory 1.024 (1.010-1.025) Urine Protein Trace (Neg-Trace) mg/dL Urine Glucose (UA) Normal (Normal) mg/dL Urine Ketones Negative (Negative) mg/dL Urine Blood Moderate H (Negative) Urine Nitrite Negative (Negative) Urine Bilirubin Small H (Negative) Urine Urobilinogen Normal (Normal) mg/dL Ur Leukocyte Esterase Large H (Negative) Urine Microscopic RBC 0-3 (0-3) per hpf Urine Microscopic WBC TNTC H (0-3) per hpf Ur Squamous Epith Cells Many H (None-Few) per lpf Urine Bacteria None Seen (None-Few) per hpf Hyaline Casts None Seen (None-Few) per lpf Urine Yeast Many H (None Seen) per hpf Ur Culture Indicated? NO. A (NO) Nasal Screen MRSA (PCR) Negative (Negative) Stool Occult Blood (Negative) Chlamy pneumoniae PCR Not Detected (Not Detect) Adenovirus (PCR) Not Detected (Not Detect) B. pertussis DNA (PCR) Not Detected (Not Detect) B.parapertussis DNA PCR Not Detected (Not Detect) Coronavirus OC43 (PCR) Not Detected (Not Detect) Coronavirus HKU1 (PCR) Not Detected (Not Detect) Coronavirus 229E (PCR) Not Detected (Not Detect) Coronavirus NL63 (PCR) Not Detected (Not Detect) Hepatitis A IgM Ab (Nonreactive) Hep Bs Antigen (Nonreactive) Hep B Core IgM Ab (Nonreactive) Hepatitis C Ab Screen (Nonreactive) Human Metapneumovir PCR Not Detected (Not Detect) Influenza A (H1) PCR Not Detected (Not Detect) Influ A (H1N1/09) PCR Not Detected (Not Detect) Influenza A (H3) PCR Not Detected (Not Detect) Influenza A Untype (PCR) Not Detected (Not Detect) Influenza Type B (PCR) Not Detected (Not Detect) M.pneumoniae DNA (PCR) Not Detected (Not Detect) Parainfluenza 1 (PCR) Not Detected (Not Detect) Parainfluenza 2 (PCR) Not Detected (Not Detect) Parainfluenza 3 (PCR) Not Detected (Not Detect) Parainfluenza 4 (PCR) Not Detected (Not Detect) RSV (PCR) Not Detected (Not Detect) Entero/Rhino (PCR) Not Detected (Not Detect) Exam - Constitutional Vitals: Temp Pulse Resp BP Pulse Ox 97.5 F L 56 18 95/49 98 11/04/18 07:44 11/04/18 07:44 11/04/18 07:44 11/04/18 07:44 11/04/18 07:44 General appearance: cooperative, morbidly obese, no acute distress - Head Head exam: Present: atraumatic, normal inspection, normocephalic - Eye Eye exam: Present: EOMI, normal appearance, PERRL Pupils: Present: normal accommodation - ENT ENT exam: Present: mucous membranes moist - Neck Neck exam: Present: normal inspection - Respiratory Respiratory exam: Present: CTAB. Absent: rales, respiratory distress, rhonchi, wheezes - Cardiovascular Cardiovascular exam: Present: irregular rhythm. Absent: tachycardia - GI/Abdominal GI/Abdominal exam: Present: distended (Obese), normal bowel sounds, soft. Absent: tenderness Additional comments: Tobin catheter noted to be draining clear yellow urine. - Extremities Exam Extremities exam: Absent: joint swelling, normal inspection (Superficial abrasions noted to the bilateral feet without erythema, warmth, tenderness, or drainage. Bilateral Allevyn dressings noted to the heels.), pedal edema, tenderness - Back Exam Additional comments: Sacral decubitus ulcer with wound VAC intact without evidence of leak. No drainage noted and the wound VAC canister. - Neurological Exam Neurological exam: Present: alert, oriented X3, no focal deficits - Psychiatric Psychiatric exam: Present: normal affect, normal mood - Skin Skin exam: Present: dry, intact, normal color, warm Consult Discharge Plan - Plan Referrals: Yuko Johnson, MINNIE [Advanced Practice Nurse] - 11/17/18 1:45 pm Lang Jarvis DO [Primary Care Provider] - (Patient will be going to SNF) Prescriptions: RX: Ertapenem [INVanz] 1,000 mg IVPB DAILY 21 Days #35332 vial Insulin DETEMIR [Levemir] 13 unit SQ HS 30 Days #100 mls RX: Vancomycin [Vancocin] 750 mg IV DAILY 35 Days #35 vial - Attending Attestation I have personally performed a face to face evaluation on this patient. I have reviewed and agree with the care plan. History and Exam by me shows: ssessment and plan: 1.sepsis 2.osteomyelitis of the decubitus area secondary to sore 3.multiple antibiotic allergies Wound care per surgery team recommendations. Aggressive offloading and wound care per nursing. Continue Ertapenem 1 gram IV daily. Continue vancomycin IV. Pharmacy to dose. Goal trough approximately 15. Duration of treatment depends on the clinical picture. The patient was due to complete 6 weeks of IV Ertapenem on 11/10/18, but will likely need to extend for an additional two weeks through 11/24/18. Will likely need a total of 6 weeks of IV Vancomycin as well. Monitor renal function for drug toxicity and dose adjust antibiotics.
[2018-11-04 10:04] LABS: AFP Tumor Marker Non-Pregnant 1 ng/mL (0-9)
[2018-11-04 10:19] LABS: F-Actin (sm muscle) Ab IgG 54 Units (0-19)
[2018-11-04 10:20] LABS: ANA IgG by ELISA DETECTED (None Detected); Myeloperoxidase Ab 0 AU/mL (0-19); Serine Protease-3 Antibody 1 AU/mL (0-19)
--- NOTE | 2018-11-04 12:24 | Discharge Summary ---
Orders not resulted at time of discharge: Pending orders 10/27/18 08:59 Culture,Urine [RM] Stat 10/31/18 14:32 Culture,Blood [BC] Stat 11/01/18 16:35 Liver Fibrosis for NAFLD Routine 11/01/18 18:55 AFP Tumor Marker Non- Routine RADHA IgG GWEN rflx IFA Routine F-Actin IgG Reflex Sm Muscle Routine MPO/PR3 (ANCA) Antibodies Routine 11/05/18 04:00 Basic Metabolic Panel AM 0400 CBC [Complete Blood Count] [HEME] AM 0400 Magnesium AM 0400 Phosphorous AM 0400 11/06/18 04:00 Basic Metabolic Panel AM 0400 CBC [Complete Blood Count] [HEME] AM 0400 Magnesium AM 0400 Phosphorous AM 0400 11/07/18 04:00 Basic Metabolic Panel AM 0400 CBC [Complete Blood Count] [HEME] AM 0400 Magnesium AM 0400 Phosphorous AM 0400 11/08/18 04:00 Basic Metabolic Panel AM 0400 CBC [Complete Blood Count] [HEME] AM 0400 Magnesium AM 0400 Phosphorous AM 0400 Date of Encounter: 11/04/18 Time of Encounter: 12:00 - Discharge Diagnosis (1) Sepsis Priority: Primary Status: Acute Assessment and Plan: 63 year old female with multiple comorbidities including obesity, A. fib, CHF, COPD, CAD, diabetes, hyperlipidemia, chronic kidney disease, pulmonary hypertension, and chronic sacral ulcer. The patient was admitted to the hospital 10/27/18 for acute kidney injury, sacral wound, sepsis, and UTI. We have been asked to evaluate the patient for a chronic sacral ulcer. The patient reports that she has had the ulcer for the past 3-4 months. She was recently admitted to [place] for approximately 2 week. She has had admissions to [facility] as well in the recent past. She states that she resides in [facility] at this time and they have been completing wound care daily. She denies being followed in a wound care facility. She in unsure as to what kind of dressings have been used for the wound. She was assessed with sepsis likely secondary to an infected sacral ulcer. CT of the abdomen showed cellulitis and edema of the gas pcokets. Wound cultures came back growing gram positive rods with clostridium and corynebacterium (which may be a contaminant) and enterococcus. She was seen by ID who have recommended a 6 week total course of ertapenem and vancomycin. She was also noted to be intermittently bradycardic during her hospital course and her amiodarone and betablockers were discontinued per cardiology recs. She had intermittent episodes of lethargy which was thought possibly secondary to her lyrica which has been disocntinued. She was discharged in a stable condition and 35 minutes was spent discharging this patient Qualifiers: Sepsis type: sepsis due to unspecified organism Qualified Code(s): A41.9 - Sepsis, unspecified organism (2) COPD (chronic obstructive pulmonary disease) Priority: Primary Status: Chronic Qualifiers: COPD type: unspecified COPD Qualified Code(s): J44.9 - Chronic obstructive pulmonary disease, unspecified (3) CAD (coronary artery disease) Priority: Primary Status: Chronic Qualifiers: Coronary Disease-Associated Artery/Lesion type: [place] artery [place] vs. transplanted heart: [place] heart Associated angina: without angina Qualified Code(s): I25.10 - Atherosclerotic heart disease of [place] coronary artery without angina pectoris (4) DM (diabetes mellitus), type 2 Priority: Primary Status: Chronic Qualifiers: Diabetes mellitus correction insulin use: with correction use Diabetes mellitus complication status: with kidney complications Diabetes mellitus complication detail: with chronic kidney disease Chronic kidney disease stage: stage 3 (moderate) Qualified Code(s): E11.22 - Type 2 diabetes mellitus with diabetic chronic kidney disease; N18.3 - Chronic kidney disease, stage 3 (moderate); Z79.4 - alf (current) use of insulin (5) Paroxysmal a-fib Priority: Primary Status: Acute (6) HTN (hypertension) Priority: Primary Status: Chronic Qualifiers: Hypertension type: essential hypertension Qualified Code(s): I10 - Essential (primary) hypertension (7) OLIVER (obstructive sleep apnea) Priority: Primary Status: Chronic (8) Morbidly obese Priority: Primary Status: Chronic (9) Cirrhosis Priority: Primary Status: Chronic Qualifiers: Hepatic cirrhosis type: other cirrhosis Qualified Code(s): K74.69 - Other cirrhosis of liver (10) Acute renal failure superimposed on stage 3 chronic kidney disease Priority: Primary Status: Chronic Qualifiers: Acute renal failure type: unspecified Qualified Code(s): N17.9 - Acute kidney failure, unspecified; N18.3 - Chronic kidney disease, stage 3 (moderate) (11) Sacral decubitus ulcer, stage IV Priority: Primary Status: Chronic (12) Chronic anemia Priority: Primary Status: Chronic (13) Hypothyroidism Priority: Primary Status: Chronic Qualifiers: Hypothyroidism type: unspecified Qualified Code(s): E03.9 - Hypothyroidism, unspecified Hospital course: Ms. Feliciano is a 63 year old female - Time Spent with Patient Total time spent providing and/or coordinating discharge services: - Discharge Medications Prescriptions: New Insulin DETEMIR [Levemir] 13 unit SQ HS 30 Days #100 mls Vancomycin [Vancocin] 750 mg IV DAILY 35 Days #35 vial Continue Docusate [Colace] 100 mg PO BID PRN PRN Reason: Constipation Glucagon,Human Recombinant [Glucagon Emergency Kit] 1 mg IJ AD PRN PRN Reason: Hypoglycemia Acetaminophen [Extra Strength Non-Aspirin] 500 mg PO Q6H PRN PRN Reason: Pain Albuterol Sulfate [Albuterol Inhaler] 2 puff IH Q6H PRN PRN Reason: Shortness Of Breath/Wheezing Multivitamin [One Daily Essential] 1 each PO DAILY Ferrous Gluconate 324 mg PO DAILY Aspirin Enteric Coated [Aspirin EC] 81 mg PO DAILY Montelukast [Singulair] 10 mg PO HS Atorvastatin [Lipitor] 20 mg PO HS Febuxostat [Uloric] 40 mg PO QPM Omeprazole [PriLOSEC] 40 mg PO QPM Cholecalciferol (D-3) [Vitamin D] 5,000 unit PO DAILY Budesonide/Formoterol 160/4.5 [Symbicort 160/4.5] 2 puff IH BIDR Bisacodyl [Dulcolax] 10 mg RC DAILY PRN PRN Reason: Constipation Levothyroxine [Synthroid] 75 mcg PO 0630 Loratadine [Allergy Relief] 10 mg PO DAILY Urea/Alpha Hydroxy Acids [Atrac-Tain Cream] 142 gm TP BID Insulin ASPART [NovoLOG] 0 unit SQ ACHS Ertapenem [INVanz] 1,000 mg IVPB DAILY 21 Days #78849 vial Lactulose [Enulose] 30 gm PO BID Discontinued Metoprolol XL (24 HR) Succ [Toprol Xl] 25 mg PO QPM Furosemide [Lasix] 60 mg PO BID Lisinopril [Zestril] 40 mg PO DAILY Amiodarone [Cordarone] 200 mg PO DAILY Pregabalin [Lyrica] 75 mg PO TID Leptospermum Honey [Medihoney] 1 appl TP DAILY #30 tube Insulin DETEMIR [Levemir] 13 unit SQ BID Home Medications: Acetaminophen [Extra Strength Non-Aspirin] 500 mg PO Q6H PRN 09/13/18 [History] Albuterol Sulfate [Albuterol Inhaler] 2 puff IH Q6H PRN 09/13/18 [History] Aspirin Enteric Coated [Aspirin EC] 81 mg PO DAILY 09/13/18 [History] Atorvastatin [Lipitor] 20 mg PO HS 09/13/18 [History] Bisacodyl [Dulcolax] 10 mg RC DAILY PRN 09/13/18 [History] Budesonide/Formoterol 160/4.5 [Symbicort 160/4.5] 2 puff IH BIDR 09/13/18 [History] Cholecalciferol (D-3) [Vitamin D] 5,000 unit PO DAILY 09/13/18 [History] Docusate [Colace] 100 mg PO BID PRN 09/13/18 [History] Febuxostat [Uloric] 40 mg PO QPM 09/13/18 [History] Ferrous Gluconate 324 mg PO DAILY 09/13/18 [History] Glucagon,Human Recombinant [Glucagon Emergency Kit] 1 mg IJ AD PRN 09/13/18 [History] Montelukast [Singulair] 10 mg PO HS 09/13/18 [History] Multivitamin [One Daily Essential] 1 each PO DAILY 09/13/18 [History] Omeprazole [PriLOSEC] 40 mg PO QPM 09/13/18 [History] Lactulose [Enulose] 30 gm PO BID 09/24/18 [History] Insulin ASPART [NovoLOG] 0 unit SQ ACHS 10/27/18 [History] Levothyroxine [Synthroid] 75 mcg PO 0630 10/27/18 [History] Loratadine [Allergy Relief] 10 mg PO DAILY 10/27/18 [History] Urea/Alpha Hydroxy Acids [Atrac-Tain Cream] 142 gm TP BID 10/27/18 [History] Ertapenem [INVanz] 1,000 mg IVPB DAILY 21 Days #30990 vial 11/04/18 [Rx] Insulin DETEMIR [Levemir] 13 unit SQ HS 30 Days #100 mls 03/01/19 [Rx] Vancomycin [Vancocin] 750 mg IV DAILY 35 Days #35 vial 11/04/18 [Rx] Allergies/Adverse Reactions: Allergy/AdvReac Type Severity Reaction Status Date / Time ciprofloxacin [From Cipro] Allergy Severe Anaphylaxis Verified 07/11/18 09:28 clarithromycin [From Biaxin] Allergy Severe Hives Verified 07/11/18 09:28 clonidine Allergy Severe Anaphylaxis Verified 07/11/18 09:28 levofloxacin [From Levaquin] Allergy Severe Anaphylaxis Verified 07/11/18 09:28 Warfarin Allergy Severe Difficulty Verified 07/11/18 09:28 Breathing Cefaclor Allergy Anaphylaxis Verified 07/11/18 09:28 codeine Allergy Rash Verified 07/11/18 09:28 Hydralazine Allergy Hives Verified 07/11/18 09:28 sulfamethoxazole Allergy Hives Verified 07/11/18 09:28 [From Bactrim] trimethoprim [From Bactrim] Allergy Hives Verified 07/11/18 09:28 tiotropium AdvReac Severe Blurry Verified 07/11/18 09:28 [From Spiriva with Vision HandiHaler] acarbose AdvReac Blurry Verified 07/11/18 09:28 Vision atorvastatin [From Lipitor] AdvReac Muscle Pain Verified 07/11/18 09:28 fenofibrate [From Tricor] AdvReac Muscle Pain Verified 07/11/18 09:28 rivaroxaban [From Xarelto] AdvReac Gastrointestinal Verified 07/11/18 09:28 Upset Date of admission: 10/27/18 09:34 Primary care physician: Lang Jarvis DO Consults: 10/27/18 07:27 Consult to Wound Care [CONS] Routine Reason for Consult: decubitus Call Completed: No 10/27/18 07:28 Consult to Palliative Care [CONS] Routine Comment: Consulting Provider: [facility] [place] Reason for Consult: poor prognosis was on home hospice 2 admissions ago Call Completed: No 10/27/18 09:18 Consult to Infectious Diseases [CONS] Routine Consulting Provider: Infectious Disease [place] Reason for Consult: sepsis secondary to sacral ulcer Call Completed: No 10/27/18 10:38 Consult to Surgery [CONS] Routine Consulting Provider: Surgery [place] [facility] Reason for Consult: infected sacral ulcer - discussed with Dr. latif Call Completed: Yes 10/27/18 12:21 Consult to Emergency Man [CONS] Routine Reason for SW Consult: from ECF, SW aware. 11/01/18 07:24 Consult to Gastroenterology [CONS] Routine Consulting Provider: Gastroenterology [facility] Reason for Consult: anemia work up Call Completed: No 11/01/18 13:43 Consult to Cardiology [CONS] Routine Comment: Consulting Provider: Cardiology Add[facility] Reason for Consult: bradycardia Call Completed: No 11/03/18 13:53 Consult to ENT [CONS] Routine Consulting Provider: ENT Addie Reason for Consult: mastoiditis with hearing loss Call Completed: No - Constitutional Vitals: Temp Pulse Resp BP Pulse Ox 97.5 F L 56 14 153/75 99 11/04/18 11:13 11/04/18 11:13 11/04/18 11:13 11/04/18 11:13 11/04/18 11:13 Exam: Vitals: Reviewed. General: Alert and oriented x3 Cardiovascular: RRR, normal S1 & S2, no rubs, murmurs or gallops. Lungs: CTA b/l, no wheezes or crackles. Abdomen: Obese, soft, non-tender, no rigidity. NABS in all 4 quadrants Extremities: stage IV sacral decubitus ulcer, decibitus ulcer on the right heel. 2+ edema in the lower extr b/l. Neurological: Normal cognition Rest of the physical exam is non contributory - Patient Status Disposition: Transfer SNF Condition: Good - Ambulatory Orders Ambulatory Orders: Vancomycin,Trough [CHEM] Time Frame: 11/06/18, Facility: [facility], Location: [facility] - Discharge Instructions Follow Up With: Bertram Strickland DO [Partnered Physician] - (Web request, office will call with date and time of appointment. Thank you) Yuko Johnson, MICROPHONE OPERATOR [Advanced Practice Nurse] - 11/17/18 1:45 pm Lang Jarvis DO [Primary Care Provider] - (Patient will be going to SNF)
--- NOTE | 2018-11-04 12:45 | Physician Discharge Referral ---
- Diagnosis (1) Sepsis Priority: Primary Status: Acute (2) COPD (chronic obstructive pulmonary disease) Priority: Primary Status: Chronic (3) CAD (coronary artery disease) Priority: Primary Status: Chronic (4) DM (diabetes mellitus), type 2 Priority: Primary Status: Chronic (5) Paroxysmal a-fib Priority: Primary Status: Acute (6) HTN (hypertension) Priority: Primary Status: Chronic (7) CHF (congestive heart failure) Priority: Primary Status: Chronic (8) OLIVER (obstructive sleep apnea) Priority: Primary Status: Chronic (9) Morbidly obese Priority: Primary Status: Chronic (10) Cirrhosis Priority: Primary Status: Chronic (11) Acute renal failure superimposed on stage 3 chronic kidney disease Priority: Primary Status: Chronic (12) Sacral decubitus ulcer, stage IV Priority: Primary Status: Chronic (13) Chronic anemia Priority: Primary Status: Chronic (14) Hypothyroidism Priority: Primary Status: Chronic - Transfer Medications Prescriptions: Ertapenem [INVanz] 1,000 mg IVPB DAILY 21 Days #35472 vial Insulin DETEMIR [Levemir] 13 unit SQ HS 30 Days #100 mls Vancomycin [Vancocin] 750 mg IV DAILY 35 Days #35 vial Home Medications: Acetaminophen [Extra Strength Non-Aspirin] 500 mg PO Q6H PRN 09/13/18 [History] Albuterol Sulfate [Albuterol Inhaler] 2 puff IH Q6H PRN 09/13/18 [History] Aspirin Enteric Coated [Aspirin EC] 81 mg PO DAILY 09/13/18 [History] Atorvastatin [Lipitor] 20 mg PO HS 09/13/18 [History] Bisacodyl [Dulcolax] 10 mg RC DAILY PRN 09/13/18 [History] Budesonide/Formoterol 160/4.5 [Symbicort 160/4.5] 2 puff IH BIDR 09/13/18 [History] Cholecalciferol (D-3) [Vitamin D] 5,000 unit PO DAILY 09/13/18 [History] Docusate [Colace] 100 mg PO BID PRN 09/13/18 [History] Febuxostat [Uloric] 40 mg PO QPM 09/13/18 [History] Ferrous Gluconate 324 mg PO DAILY 09/13/18 [History] Glucagon,Human Recombinant [Glucagon Emergency Kit] 1 mg IJ AD PRN 09/13/18 [History] Montelukast [Singulair] 10 mg PO HS 09/13/18 [History] Multivitamin [One Daily Essential] 1 each PO DAILY 09/13/18 [History] Omeprazole [PriLOSEC] 40 mg PO QPM 09/13/18 [History] Lactulose [Enulose] 30 gm PO BID 09/24/18 [History] Insulin ASPART [NovoLOG] 0 unit SQ ACHS 10/27/18 [History] Levothyroxine [Synthroid] 75 mcg PO 0630 10/27/18 [History] Loratadine [Allergy Relief] 10 mg PO DAILY 10/27/18 [History] Urea/Alpha Hydroxy Acids [Atrac-Tain Cream] 142 gm TP BID 10/27/18 [History] Ertapenem [INVanz] 1,000 mg IVPB DAILY 21 Days #42199 vial 11/04/18 [Rx] Insulin DETEMIR [Levemir] 13 unit SQ HS 30 Days #100 mls 11/04/18 [Rx] Vancomycin [Vancocin] 750 mg IV DAILY 35 Days #35 vial 11/04/18 [Rx] Allergies/Adverse Reactions: Allergy/AdvReac Type Severity Reaction Status Date / Time ciprofloxacin [From Cipro] Allergy Severe Anaphylaxis Verified 07/11/18 09:28 clarithromycin [From Biaxin] Allergy Severe Hives Verified 07/11/18 09:28 clonidine Allergy Severe Anaphylaxis Verified 07/11/18 09:28 levofloxacin [From Levaquin] Allergy Severe Anaphylaxis Verified 07/11/18 09:28 Warfarin Allergy Severe Difficulty Verified 07/11/18 09:28 Breathing Cefaclor Allergy Anaphylaxis Verified 07/11/18 09:28 codeine Allergy Rash Verified 07/11/18 09:28 Hydralazine Allergy Hives Verified 07/11/18 09:28 sulfamethoxazole Allergy Hives Verified 07/11/18 09:28 [From Bactrim] trimethoprim [From Bactrim] Allergy Hives Verified 07/11/18 09:28 tiotropium AdvReac Severe Blurry Verified 07/11/18 09:28 [From Spiriva with Vision HandiHaler] acarbose AdvReac Blurry Verified 07/11/18 09:28 Vision atorvastatin [From Lipitor] AdvReac Muscle Pain Verified 07/11/18 09:28 fenofibrate [From Tricor] AdvReac Muscle Pain Verified 07/11/18 09:28 rivaroxaban [From Xarelto] AdvReac Gastrointestinal Verified 07/11/18 09:28 Upset - Respiratory Orders Smoking Cessation: Smoking cessation has been advised. For more information, call the [place] Tobacco Quit Line at 0-661-FNLC-NOW. - Mobility Orders Ambulate - Diet Orders Cardiac CERTIFICATION: I certify that the transfer of the above named patient to an Extended Care Facility is necessary for the continuing treatment of the diagnosis listed. The above information is true and accurate reflection of patient's current condition. Confidential - Redisclosure prohibited without a patient's written consent.
[2018-11-04 14:23] VITALS: BP 113/37
[2018-11-04] MEDS ORDERED: Aminoglycoside Consult 1 EACH MC ONE (18:16)
[2018-11-05 11:47] LABS: Smooth Muscle Ab Titer IgG 1:40 (<1:20)
== END 2018-11-04 18:17 | DRG 871 ==
LOC: EMEROOARM 03:16 → 2ANU 03:16 → SUATTDRO 09:34 → 2NNU 11-01 15:39 → 3ANU 11-02 08:45
PROVIDERS: ADMIT Family Medicine; ATTEND Internal Medicine